=== PATIENT | male | born 1965 | race Caucasian/White ===

== ENCOUNTER 2016-08-09 23:49 | Inpatient (IN) | payer OTHER ==
[2016-08-10 00:22] VITALS: BMI 38.4
[2016-08-10] MEDS ORDERED: ONDANSETRON 4 MG/2 ML VIAL IVPB ONE (00:29)
[2016-08-10] MEDS ORDERED: ACETAMINOPHEN 500 MG TABLET (FP) PO ONE (00:29)
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
[2016-08-10] MEDS ORDERED: VANCOMYCIN 1,000 MG in DEXTROSE 5%-WATER - 250 ML IVPB STA (00:44)
[2016-08-10] MEDS ORDERED: PIPERACILLIN/TAZOB 3.375 GM 3.375 GM in DEXTROSE 5%-WATER - 50 ML IVPB ONE ×2 (00:46→08:00)
[2016-08-10 01:18] LABS: BASOPHIL 0.3 % (0-2.0); EOSINOPHIL 0.1 % (0-4.5); MCH 27.9 pg (25.7-33.7); MCHC 33.2 g/dl (32.0-35.9); MEAN CELL VOLUME 83.9 fl (80-96); MEAN PLT VOLUME 8.7 fl (7.5-11.1); NEUTROPHILS 92.7 % (42.8-82.8); PLATELET COUNT 140 K/MM3 (134-434); RDW 14.4 % (11.9-15.9)
[2016-08-10 01:30] LABS: INR 1.23 (0.82-1.09); PROTHROMBIN TIME (PATIENT) 13.6 SEC (9.98-11.88)
[2016-08-10 01:33] LABS: ACTIVATED PTT 32.6 SECONDS (26.9-34.4)
[2016-08-10 01:54] LABS: ALBUMIN 3.3 g/dl (3.4-5.0); ANION GAP 11 (8-16); CALCIUM 8.5 mg/dL (8.5-10.1); CO2 24 mmol/L (21-32); COCKROFT - GAULT 120.11; CREATININE 1.2 mg/dL (0.7-1.3); GLUCOSE,RANDOM 296 mg/dL (74-106); SGOT/AST 56 U/L (15-37); SGPT/ALT 65 U/L (12-78)
[2016-08-10 01:57] LABS: ALK PHOS 119 U/L (45-117); BILIRUBIN,TOTAL 0.6 mg/dL (0.2-1.0); TOT PROT 6.7 g/dl (6.4-8.2); TROPONIN I < 0.02 ng/ml (0.00-0.05)
[2016-08-10] MEDS ORDERED: oxyCODONE HCL 5 MG TABLET PO ONE (02:03)
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
[2016-08-10] MEDS ORDERED: ACETAMINOPHEN 325 MG TABLET (FP) ONE (02:21)
[2016-08-10] MEDS ORDERED: ONDANSETRON 4 MG/2 ML VIAL ONE ×2 (02:58→03:00)
[2016-08-10] MEDS ORDERED: VANCOMYCIN 1 GRAM (PRE-DOCKED) 250 ML IVPB ONE ×2 (02:58→08:45)
[2016-08-10] MEDS ORDERED: ONDANSETRON 4 MG/2 ML VIAL IVPUSH PRN (03:28)
[2016-08-10] MEDS: INSULIN SLIDING SCALE (NOVOLOG) 1 VIAL SQ SCH ×6 (03:49→23:04)
[2016-08-10] MEDS ORDERED: INSULIN (NOVOLOG) ASPART 100 UNITS/ML 10ML VIAL ONE ×2 (03:57→21:27)
[2016-08-10] MEDS ORDERED: PIPERACILLIN/TAZOB 3.375 GM 50 ML IVPB ONE (05:36)
[2016-08-10 07:43] LABS: ARTERIAL BLD GAS O2 SATURATION 96.9 % (90-98.9); ARTERIAL BLOOD GAS HCO3 26.1 meq/L (22-26); ARTERIAL BLOOD GAS PO2 92.6 mmHg (80-100)
[2016-08-10 07:44] LABS: ALLENS TEST POSITIVE; ART PUNCT SITE RIGHT RADIAL; LPM/O2% 21%; PT. ON O2? NO; TYPE OF O2 ROOM AIR
[2016-08-10 07:45] LABS: ARTERIAL BLOOD GAS pH 7.47 (7.35-7.45)
[2016-08-10 07:46] LABS: METHEMOGLOBIN 1.5 % (0.4-1.5)
[2016-08-10] MEDS: traMADol HCL 50 MG TABLET PO PRN ×2 (08:07→23:17)
[2016-08-10 08:14] LABS: CALCIUM 8.4 mg/dL (8.5-10.1); COCKROFT - GAULT 144.14; PHOSPHOROUS 2.6 mg/dL (2.5-4.9)
[2016-08-10] MEDS ORDERED: PIPERACILLIN/TAZOB 3.375 GM/50 ML PRE-DOCKED IVPB ONE (08:45)
[2016-08-10] MEDS: SODIUM CHLORIDE 1,000 ML IV SCH (08:57)
[2016-08-10] MEDS: ASPIRIN 81 MG CHEWABLE TABLETS PO SCH (09:03)
[2016-08-10] MEDS: cloNIDine HCL 0.1 MG TABLET PO SCH ×2 (09:03→22:33)
[2016-08-10] MEDS: HEPARIN NA (PORCINE) 5,000 UNITS/ML 1ML VIAL SQ SCH ×2 (09:05→22:33)
[2016-08-10] MEDS: amLODIPine BESYLATE 5 MG TABLET (FP) PO SCH (09:05)
[2016-08-10] MEDS: FUROSEMIDE 20 MG TABLET (FP) PO SCH (09:05)
[2016-08-10] MEDS: VALSARTAN 160 MG TABLET (UD) PO SCH (09:05)
[2016-08-10] MEDS: ALPRAZolam 2 MG TABLET PO SCH ×4 (09:09→22:34)
[2016-08-10] MEDS: ACETAMINOPHEN 325 MG TABLET (FP) PO PRN ×2 (09:24→20:47)
[2016-08-10 09:47] LABS: MCH 28.1 pg (25.7-33.7); MCHC 33.5 g/dl (32.0-35.9); MEAN CELL VOLUME 83.9 fl (80-96); MEAN PLT VOLUME 8.6 fl (7.5-11.1); PLATELET COUNT 148 K/MM3 (134-434); RDW 14.5 % (11.9-15.9); WHITE BLOOD COUNT 16.9 K/mm3 (4.0-10.0)
[2016-08-10 10:08] LABS: URINE APPEARANCE CLEAR; URINE BILIRUBIN NEGATIVE (NEGATIVE); URINE BLOOD NEGATIVE (NEGATIVE); URINE COLOR LTYELLOW; URINE GLUCOSE (UA) NEGATIVE (NEGATIVE); URINE KETONE NEGATIVE (NEGATIVE); URINE LEUK ESTERASE NEGATIVE (NEGATIVE); URINE NITRITE NEGATIVE (NEGATIVE); URINE PROTEIN NEGATIVE (NEGATIVE); URINE UROBILINOGEN 2.0 E.U/dl E.U./dl (0.2-1.0)
[2016-08-10] MEDS ORDERED: ONDANSETRON 4 MG/2 ML VIAL IVPB PRN (12:01)
--- NOTE | 2016-08-10 12:29 | PN ---
Progress Note (short form) - Note Progress Note: ID consult dictated imp/reccd Acute onset fever/rigors- acutes cellulitis of the left foot (marked with marker ) entrypoint most likely chronic ulcer surgery to see ulcer last wound culture 12/25 with MRSA, enterobacter, xanthamonas and proteus continue vanco/zosyn f/u cultures f/u vancomycin trough diabetes remote history of substance use Problem List - Problems (1) Cellulitis of left leg Code(s): L03.116 - CELLULITIS OF LEFT LOWER LIMB (2) Chronic foot ulcer Code(s): L97.509 - NON-PRESSURE CHRONIC ULCER OTH PRT UNSP FOOT W UNSP SEVERITY (3) Diabetes mellitus Code(s): E11.9 - TYPE 2 DIABETES MELLITUS WITHOUT COMPLICATIONS
[2016-08-10] MEDS ORDERED: METHADONE HCL 10 MG TABLET PO ONE (12:54)
--- NOTE | 2016-08-10 13:00 | CONSULT ---
Consult Detox [facility] Reason for Current Admission/Consult: Methadone maintenance - History History of Present Illness: 51 y/o man known to me because he was attending our [facility] many years ago.He transferred to [facility] where he receives methadone 70mg daily. - History Source History Provided By: Patient, Medical Record - Alcohol/Substance Use Hx Alcohol Use: No - Significant Medical Findings: Laboratory Last Values WBC 16.9 K/mm3 (4.0-10.0) H 08/10/16 09:20 RBC 4.46 M/mm3 (4.00-5.60) 08/10/16 09:20 Hgb 12.5 GM/dL (11.7-16.9) 08/10/16 09:20 Hct 37.5 % (35.4-49) 08/10/16 09:20 MCV 83.9 fl (80-96) 08/10/16 09:20 MCHC 33.5 g/dl (32.0-35.9) 08/10/16 09:20 RDW 14.5 % (11.9-15.9) 08/10/16 09:20 Plt Count 148 K/MM3 (134-434) 08/10/16 09:20 MPV 8.6 fl (7.5-11.1) 08/10/16 09:20 Neutrophils % 92.7 % (42.8-82.8) H 08/10/16 01:00 Lymphocytes % 2.6 % (8-40) L D 08/10/16 01:00 Monocytes % 4.3 % (3.8-10.2) 08/10/16 01:00 Eosinophils % 0.1 % (0-4.5) D 08/10/16 01:00 Basophils % 0.3 % (0-2.0) 08/10/16 01:00 ESR 43 mm/hr (0-20) H 08/10/16 09:20 INR 1.23 (0.82-1.09) H 08/10/16 01:00 PTT (Actin FS) 32.6 SECONDS (26.9-34.4) 08/10/16 01:00 Puncture Site Right radial 08/10/16 07:30 ABG pH 7.47 (7.35-7.45) H 08/10/16 07:30 ABG pCO2 at Pt Temp 36.4 mmHg (35-45) 08/10/16 07:30 ABG pO2 at Pt Temp 92.6 mmHg (80-100) 08/10/16 07:30 ABG HCO3 26.1 meq/L (22-26) H 08/10/16 07:30 ABG O2 Sat (Measured) 96.9 % (90-98.9) 08/10/16 07:30 ABG O2 Content 16.6 % vol (15-22) 08/10/16 07:30 ABG Base Excess 3.0 meq/l (-2-2) H 08/10/16 07:30 Osei Test Positive 08/10/16 07:30 Carboxyhemoglobin 1.2 gm% (0.5-2.0) 08/10/16 07:30 Methemoglobin 1.5 % (0.4-1.5) 08/10/16 07:30 O2 Delivery Device Room air 08/10/16 07:30 Oxygen Flow Rate 21% 08/10/16 07:30 PEEP 0.0 cmH2O 08/10/16 07:30 Sodium 138 mmol/L (136-145) 08/10/16 06:45 Potassium 4.1 mmol/L (3.5-5.1) 08/10/16 06:45 Chloride 104 mmol/L (98-107) 08/10/16 06:45 Carbon Dioxide 26 mmol/L (21-32) 08/10/16 06:45 Anion Gap 8 (8-16) 08/10/16 06:45 BUN 16 mg/dL (7-18) 08/10/16 06:45 Creatinine 1.0 mg/dL (0.7-1.3) 08/10/16 06:45 Creat Clearance w eGFR > 60 (>60) 08/10/16 01:00 POC Glucometer 146 UNITS (()) 08/10/16 11:19 Random Glucose 132 mg/dL (74-106) H D 08/10/16 06:45 Hemoglobin A1c % 8.5 % (4.8-6.0) H 08/10/16 09:20 Lactic Acid 1.707 mmol/L (0.4-2.0) 08/10/16 09:20 Calcium 8.4 mg/dL (8.5-10.1) L 08/10/16 06:45 Phosphorus 2.6 mg/dL (2.5-4.9) 08/10/16 06:45 Magnesium 2.0 mg/dL (1.8-2.4) 08/10/16 06:45 Total Bilirubin 0.6 mg/dL (0.2-1.0) 08/10/16 01:00 AST 56 U/L (15-37) H 08/10/16 01:00 ALT 65 U/L (12-78) 08/10/16 01:00 Alkaline Phosphatase 119 U/L (45-117) H 08/10/16 01:00 Creatine Kinase 157 IU/L (39-308) D 08/10/16 01:00 Creatine Kinase Index 0.7 % (0.0-5.0) 08/10/16 01:00 CK-MB (CK-2) 1.037 ng/ml (0.5-3.6) 08/10/16 01:00 CK-MB (CK-2) Rel Index Cancelled 08/10/16 01:00 Troponin I < 0.02 ng/ml (0.00-0.05) 08/10/16 01:00 C-Reactive Protein 8.3 MG/DL (0.00-0.3) H 08/10/16 09:20 Total Protein 6.7 g/dl (6.4-8.2) 08/10/16 01:00 Albumin 3.3 g/dl (3.4-5.0) L 08/10/16 01:00 Urine Color Ltyellow 08/10/16 08:30 Urine Appearance Clear 08/10/16 08:30 Urine pH 8.0 (5.0-8.0) D 08/10/16 08:30 Urine Protein Negative (NEGATIVE) 08/10/16 08:30 Urine Glucose (UA) Negative (NEGATIVE) 08/10/16 08:30 Urine Ketones Negative (NEGATIVE) 08/10/16 08:30 Urine Blood Negative (NEGATIVE) 08/10/16 08:30 Urine Nitrite Negative (NEGATIVE) 08/10/16 08:30 Urine Bilirubin Negative (NEGATIVE) 08/10/16 08:30 Urine Urobilinogen 2.0 e.u/dl E.U./dl (0.2-1.0) 08/10/16 08:30 Ur Leukocyte Esterase Negative (NEGATIVE) 08/10/16 08:30 Blood Type A POSITIVE 08/10/16 01:00 Antibody Screen Negative 08/10/16 01:00 labs noted Assessment Plan - Diagnosis (1) Opioid dependence on agonist therapy Status: Acute - Medication Detox Regimen/Protocol: Methadone (70mg daily)
--- NOTE | 2016-08-10 13:28 | PN ---
Teaching Attending Note Name of Resident: Mars Terry ATTENDING PHYSICIAN STATEMENT I saw and evaluated the patient. I reviewed the resident's note and discussed the case with the resident. I agree with the resident's findings and plan as documented. SUBJECTIVE:c/o nausea and vomiting with excruciating leg pain which he states started yesterday. assoc with chills. denies CP, SOB. states last used IVDA last 20 years ago. has been following up with Dr Bellamy for his foot ulcer. OBJECTIVE: Last Vital Signs Temp Pulse Resp BP Pulse Ox 100.5 F H 88 20 145/68 98 08/10/16 06:29 08/10/16 06:29 08/10/16 06:29 08/10/16 06:29 08/10/16 04:17 General +rigors CV S1 S2 RRR no murmur/rub/gallop Lungs CTA B/L no wheezing/rales/rhonchi Extremities LLE 3cm round ulcer on heel of foot. does not probe to bone, no undermining or tunneling. no drainage erythema spreading up the knee +warmth and tenderness. chronic venous changes also noted ASSESSMENT AND PLAN: 51yo M with complicated medical history presented to the ER and was admitted for further evaluation of their emergent condition 1. LLE cellulitis- likely from diabetic foot ulcer. Tm 103.1. ESR/CRP elevated. will check XR of the foot to evaluate for OM, pt is clinically to sick to lay still for MRI imaging. give vanco x1 while waiting for ID as +MRSA in the past. cont IVF, zosyn. ID and vascular consulted. will consult podiatry. pain and nausea control. f/u Cx 2. Chronic methadone dependence- on methadone 70mg. detox consulted. continue 3. Abdominal pain- likely due to vomiting. u/s showing fatty liver. will monitor for now. LFT WNL 4. DVT ppx- hep sq
--- NOTE | 2016-08-10 13:30 | EKG ---
Test Reason : Blood Pressure : / mmHG Vent. Rate : 095 BPM Atrial Rate : 095 BPM P-R Int : 174 ms QRS Dur : 086 ms QT Int : 348 ms P-R-T Axes : 021 043 023 degrees QTc Int : 437 ms NORMAL SINUS RHYTHM NORMAL ECG WHEN COMPARED WITH ECG OF 25-FEB-2016 14:36, NO SIGNIFICANT CHANGE WAS FOUND Confirmed by FERNANDO VAZQUEZ MD ([id number]) on 08/10/2016 1:30:35 PM Referred By: Confirmed By:FERNANDO VAZQUEZ MD
[2016-08-10] MEDS ORDERED: METHADONE 40 MG, METHADONE 30 MG PO ONE (14:30)
[2016-08-10] MEDS ORDERED: METHADONE HCL 40 MG DISPERSABLE TABLET ONE (15:35)
[2016-08-10] MEDS ORDERED: METHADONE HCL 10 MG TABLET ONE (15:35)
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
--- NOTE | 2016-08-10 16:05 | PN ---
Physical Exam: SUBJECTIVE: Patient seen and examined at bedside. Patient stated that he feels terrible and he has fever, chills, RUQ pain, n/v since admission. OBJECTIVE: Vital Signs Period Temp Pulse Resp BP Sys/Cross Pulse Ox Last 24 Hr 99 F-100.7 F 67-88 20-22 113-145/52-68 98 GENERAL: AAO x 3, in pain and sleeping in position EYES: L eye removed. R eye PERRLA EARS, NOSE, THROAT: Moist mucous membranes. LUNGS: CTAB HEART: RRR, S1 S2 present, no murmur ABDOMEN: + bowel sounds, tenderness in RUQ and RLQ, voluntary guarding LOWER EXTREMITIES: RLE s/p BKA. LLE erythematous, edematous, warm, skin sloughing and scaling, 5th metatarsal amputated, L plantar foot ulcer non draining, non-purulent, round shape measuring 3 cm in radius, stage 3, tunneling , no crepitus. NEUROLOGICAL: Cranial nerves II-XII grossly intact SKIN: Warm, dry CBCD WBC 16.9 K/mm3 (4.0-10.0) H 08/10/16 09:20 RBC 4.46 M/mm3 (4.00-5.60) 08/10/16 09:20 Hgb 12.5 GM/dL (11.7-16.9) 08/10/16 09:20 Hct 37.5 % (35.4-49) 08/10/16 09:20 MCV 83.9 fl (80-96) 08/10/16 09:20 MCHC 33.5 g/dl (32.0-35.9) 08/10/16 09:20 RDW 14.5 % (11.9-15.9) 08/10/16 09:20 Plt Count 148 K/MM3 (134-434) 08/10/16 09:20 MPV 8.6 fl (7.5-11.1) 08/10/16 09:20 CMP Sodium 138 mmol/L (136-145) 08/10/16 06:45 Potassium 4.1 mmol/L (3.5-5.1) 08/10/16 06:45 Chloride 104 mmol/L (98-107) 08/10/16 06:45 Carbon Dioxide 26 mmol/L (21-32) 08/10/16 06:45 Anion Gap 8 (8-16) 08/10/16 06:45 BUN 16 mg/dL (7-18) 08/10/16 06:45 Creatinine 1.0 mg/dL (0.7-1.3) 08/10/16 06:45 Creat Clearance w eGFR > 60 (>60) 08/10/16 01:00 Calcium 8.4 mg/dL (8.5-10.1) L 08/10/16 06:45 Total Bilirubin 0.6 mg/dL (0.2-1.0) 08/10/16 01:00 AST 56 U/L (15-37) H 08/10/16 01:00 ALT 65 U/L (12-78) 08/10/16 01:00 Alkaline Phosphatase 119 U/L (45-117) H 08/10/16 01:00 Total Protein 6.7 g/dl (6.4-8.2) 08/10/16 01:00 Albumin 3.3 g/dl (3.4-5.0) L 08/10/16 01:00 Active Medications Generic Name Dose Route Start Last Admin Trade Name Freq PRN Reason Stop Dose Admin Acetaminophen 650 mg 08/10/16 03:03 08/10/16 09:24 Tylenol - PO 650 mg Q4H PRN Administration FEVER OR PAIN Alprazolam 2 mg 08/10/16 10:00 08/10/16 09:09 Xanax - PO 2 mg QID PRICE Administration Amlodipine Besylate 5 mg 08/10/16 10:00 08/10/16 09:05 Norvasc - PO 5 mg DAILY PRICE Administration Aspirin 81 mg 08/10/16 10:00 08/10/16 09:03 Asa - PO 81 mg DAILY PRICE Administration Atorvastatin Calcium 20 mg 08/10/16 22:00 Lipitor - PO HS PRICE Clonidine 0.2 mg 08/10/16 10:00 08/10/16 09:03 Catapres - PO 0.2 mg BID PRICE Administration Collagenase 1 applic 08/10/16 10:00 Santyl - TP DAILY PRICE Furosemide 20 mg 08/10/16 10:00 08/10/16 09:05 Lasix - PO 20 mg DAILY PRICE Administration Heparin Sodium (Porcine) 5,000 unit 08/10/16 10:00 08/10/16 09:05 Heparin - SQ 5,000 unit BID PRICE Administration Sodium Chloride 1,000 mls @ 75 mls/hr 08/10/16 03:15 08/10/16 08:57 Normal Saline - IV 75 mls/hr ASDIR PRICE Administration Vancomycin HCl 1,250 mg/ 250 mls @ 250 mls/hr 08/10/16 22:00 Dextrose IVPB BID PRICE Protocol Insulin Aspart 1 vial 08/10/16 02:15 08/10/16 11:21 Novolog Vial Sliding Scale - SQ Not Given Q4H PRICE Protocol Methadone HCl 70 mg 08/11/16 06:00 Dolophine - PO DAILY@0600 PRICE Non-Formulary Medication 15 gm 08/10/16 10:00 Becaplermin [Regranex] TP DAILY [facility] Non-Formulary Medication 1 each 08/10/16 03:15 Calcium Carb/Vitamin D3/Vit K1 [Calcium + D Soft Chewable Tab] PO ASDIR PRICE Ondansetron HCl 4 mg 08/10/16 12:01 Zofran Injection IVPB Q4H PRN NAUSEA Piperacillin Sod/Tazobactam Sod 3.375 gm 08/10/16 18:00 Zosyn 3.375gm Ivpb (Pre-Docked) IVPB Q8H-IV [facility] Protocol Tramadol HCl 50 mg 08/10/16 03:15 08/10/16 08:07 Ultram - PO 50 mg Q4H PRN Administration Valsartan 160 mg 08/10/16 10:00 08/10/16 09:05 Diovan - PO 160 mg DAILY PRICE Administration Imaging U/S abd on 08/10: Hepatomegaly with diffuse fatty infiltration of the liver X-ray of LLE on 08/10: Soft tissue air/ulceration in the plantar soft tissues of the hindfoot is again noted. Deformities of the calcaneus and talus are unchanged in appearance. Partial amputation of the fifth ray is again noted. There is a linear metallic density measuring about 3 mm in size over the lateral forefoot seen on the oblique view of the foot raising possibility of foreign body, however more likely reflecting artifact as it is only seen on one view. No definite radiographic evidence of osteomyelitis is seen CXR on 08/10: No acute pathology. No significant change ASSESSMENT/PLAN: 51 yo M admitted to the med-surg with sepsis 2/2 cellulitis. ID: non-purulent cellulitis of LLE - Frebile with elevated WBC - h/o LLE osteomyelitis - CXR negative but cannot r/o osteomyelitis and DVT * f/u duplex U/S of LLE * MRI when stable - Cont. vanco + zosyn GI: RUQ and RLQ pain - Diabetic gastroparesis vs. liver pathology due to untreated hep C - Abd U/S shows fatty infiltration - Observe for now Psy: substance abuse on methadone; PTSD and anxiety - Dosed confirmed with [facility] - Cont. methadone 70mg daily - Cont. alprazonam 2mg QID Cardiac: HLD - Cont. lipitor 20mg HS - Cont. ASA 81mg daily Renal: HTN - Cont. norvasc 5mg, clonidine 0.2mg BID, lasix 20mg daily, diovan 160mg daily Endocrine: IDDM - Sliding scale - BGM FEN - NS 75ml/hr - Cont. to monitor lytes and Cr - Diabetic diet with low Na+ Prophylaxis - DVT: heparin SQ - GI: not indicated Disposition - Cont. to monitor on med-surg Code status - Full code Visit type - Emergency Visit Emergency Visit: Yes ED Registration Date: 08/10/16 Care time: The patient presented to the Emergency Department on the above date and was hospitalized for further evaluation of their emergent condition. - New Patient This patient is new to me today: Yes Date on this admission: 08/10/16 - Critical Care Critical Care patient: No
[2016-08-10] MEDS: COLLAGENASE CLOSTRIDIUM HIST. 30 GRAMS TUBE TP SCH (16:06)
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
[2016-08-10] MEDS: PIPERACILLIN/TAZOB 3.375 GM/50 ML PRE-DOCKED IVPB SCH (17:59)
[2016-08-10] MEDS: ATORVASTATIN CA 20 MG TABLET (FP) PO SCH (22:32)
[2016-08-10] MEDS: VANCOMYCIN 1,250 MG in DEXTROSE 5%-WATER - 250 ML IVPB SCH (22:34)
[2016-08-11] MEDS: INSULIN SLIDING SCALE (NOVOLOG) 1 VIAL SQ SCH ×7 (02:03→22:10)
[2016-08-11] MEDS ORDERED: PIPERACILLIN/TAZOB 3.375 GM 50 ML IVPB ONE (05:45)
[2016-08-11] MEDS ORDERED: METHADONE 40 MG, METHADONE 30 MG PO SCH (06:00)
[2016-08-11] MEDS ORDERED: METHADONE HCL 10 MG TABLET PO SCH (06:00)
[2016-08-11] MEDS: PIPERACILLIN/TAZOB 3.375 GM/50 ML PRE-DOCKED IVPB SCH ×3 (06:07→17:54)
[2016-08-11] MEDS: SODIUM CHLORIDE 1,000 ML IV SCH ×2 (06:53→09:44)
[2016-08-11 07:18] LABS: MCH 28.3 pg (25.7-33.7); MCHC 33.3 g/dl (32.0-35.9); MEAN CELL VOLUME 84.9 fl (80-96); MEAN PLT VOLUME 9.1 fl (7.5-11.1); PLATELET COUNT 144 K/MM3 (134-434); RDW 15.2 % (11.9-15.9); WHITE BLOOD COUNT 11.2 K/mm3 (4.0-10.0)
[2016-08-11] MEDS ORDERED: METHADONE HCL 40 MG DISPERSABLE TABLET ONE (09:38)
[2016-08-11] MEDS ORDERED: METHADONE HCL 10 MG TABLET ONE (09:39)
[2016-08-11] MEDS: VANCOMYCIN 1,250 MG in DEXTROSE 5%-WATER - 250 ML IVPB SCH ×2 (09:45→22:41)
[2016-08-11] MEDS: METHADONE 40 MG, METHADONE 30 MG PO SCH (09:46)
[2016-08-11] MEDS: cloNIDine HCL 0.1 MG TABLET PO SCH ×2 (09:46→22:09)
[2016-08-11] MEDS: ASPIRIN 81 MG CHEWABLE TABLETS PO SCH (09:46)
[2016-08-11] MEDS: FUROSEMIDE 20 MG TABLET (FP) PO SCH (09:46)
[2016-08-11] MEDS: HEPARIN NA (PORCINE) 5,000 UNITS/ML 1ML VIAL SQ SCH ×2 (09:47→22:09)
[2016-08-11] MEDS: ALPRAZolam 2 MG TABLET PO SCH ×4 (09:47→22:10)
[2016-08-11] MEDS: amLODIPine BESYLATE 5 MG TABLET (FP) PO SCH (09:47)
[2016-08-11] MEDS: VALSARTAN 160 MG TABLET (UD) PO SCH (09:47)
[2016-08-11] MEDS: COLLAGENASE CLOSTRIDIUM HIST. 30 GRAMS TUBE TP SCH (09:50)
[2016-08-11] MEDS ORDERED: INSULIN (NOVOLOG) ASPART 100 UNITS/ML 10ML VIAL ONE ×3 (10:11→21:47)
--- NOTE | 2016-08-11 10:11 | PN ---
Teaching Attending Note Name of Resident: Mars Terry ATTENDING PHYSICIAN STATEMENT I saw and evaluated the patient. I reviewed the resident's note and discussed the case with the resident. I agree with the resident's findings and plan as documented. SUBJECTIVE: Patient complains of abdominal pain with nausea and vomiting. OBJECTIVE: Vital Signs Period Temp Pulse Resp BP Sys/Cross Pulse Ox Last 24 Hr 99 F-102.4 F 67-113 18-20 107-122/52-65 98 HEART: S1S2, RRR LUNGS: Clear ABDOMEN: Obese, non-tender, non-distended, normal BS EXTREMITIES: No edema, decreased erythema of LLE, s/p right BKA ASSESSMENT AND PLAN: This is a 51-year-old man with a history of IDDM, HTN, hyperlipidemia, hepatitis C, PTSD, anxiety disorder, chronic pain, substance abuse, neuropathy, endocarditis, MRSA bacteremia, right BKA, left 5th toe amputation, osteomyelitis of LLE and rib, who presented to the ER with abdominal pain, nausea, vomiting, diarrhea, fever and chills. 1. Sepsis secondary to LLE cellulitis from diabetic foot ulcer - Continue Zosyn, Vancomycin - Continue wound care - Blood cultures negative after 24 hrs - Wound culture pending 2. Opiate dependence - Continue Methadone maintenance 3. Abdominal pain with nausea and vomiting - Possible diabetic gastroparesis 4. HTN - Continue Norvasc, Diovan, Clonidine, Lasix 5. IDDM with neuropathy - Continue Novolog sliding scale 6. Chronic pain 7. PTSD and anxiety disorder - Continue Xanax 8. Hyperlipidemia - Continue Lipitor
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
--- NOTE | 2016-08-11 11:00 | PN ---
Physical Exam: SUBJECTIVE: Patient seen and examined at bedside. Patient stated that he still has fever, chills, RUQ pain, leg pain, headache and delirium overnight. OBJECTIVE: Vital Signs Period Temp Pulse Resp BP Sys/Cross Pulse Ox Last 24 Hr 99 F-102.4 F 67-113 18-20 107-122/52-65 98 GENERAL: AAO x 3, sleeping in position, cooperative, able to speak in full sentences EYES: L eye removed. R eye PERRLA EARS, NOSE, THROAT: Moist mucous membranes. LUNGS: CTAB HEART: RRR, S1 S2 present, no murmur ABDOMEN: + bowel sounds, tenderness in all quadrants, no guarding LOWER EXTREMITIES: RLE s/p BKA. LLE less erythematous (redness retreated ~2 cm from drawn margin yesterday), and less warm, skin sloughing and scaling, 5th metatarsal amputated, L plantar foot ulcer dressing in place NEUROLOGICAL: Cranial nerves II-XII grossly intact SKIN: Warm, dry CBCD WBC 11.2 K/mm3 (4.0-10.0) H D 08/11/16 06:30 RBC 4.08 M/mm3 (4.00-5.60) 08/11/16 06:30 Hgb 11.5 GM/dL (11.7-16.9) L 08/11/16 06:30 Hct 34.7 % (35.4-49) L 08/11/16 06:30 MCV 84.9 fl (80-96) 08/11/16 06:30 MCHC 33.3 g/dl (32.0-35.9) 08/11/16 06:30 RDW 15.2 % (11.9-15.9) 08/11/16 06:30 Plt Count 144 K/MM3 (134-434) 08/11/16 06:30 MPV 9.1 fl (7.5-11.1) 08/11/16 06:30 Active Medications Generic Name Dose Route Start Last Admin Trade Name Freq PRN Reason Stop Dose Admin Acetaminophen 650 mg 08/10/16 03:03 08/10/16 20:47 Tylenol - PO 650 mg Q4H PRN Administration FEVER OR PAIN Alprazolam 2 mg 08/10/16 10:00 08/11/16 09:47 Xanax - PO 2 mg QID PRICE Administration Amlodipine Besylate 5 mg 08/10/16 10:00 08/11/16 09:47 Norvasc - PO 5 mg DAILY PRICE Administration Aspirin 81 mg 08/10/16 10:00 08/11/16 09:46 Asa - PO 81 mg DAILY PRICE Administration Atorvastatin Calcium 20 mg 08/10/16 22:00 08/10/16 22:32 Lipitor - PO 20 mg HS PRICE Administration Clonidine 0.2 mg 08/10/16 10:00 08/11/16 09:46 Catapres - PO 0.2 mg BID PRICE Administration Collagenase 1 applic 08/10/16 10:00 08/11/16 09:50 Santyl - TP 1 applic DAILY PRICE Administration Furosemide 20 mg 08/10/16 10:00 08/11/16 09:46 Lasix - PO 20 mg DAILY PRICE Administration Heparin Sodium (Porcine) 5,000 unit 08/10/16 10:00 08/11/16 09:47 Heparin - SQ 5,000 unit BID PRICE Administration Sodium Chloride 1,000 mls @ 75 mls/hr 08/10/16 03:15 08/11/16 09:44 Normal Saline - IV 75 mls/hr ASDIR PRICE Administration Vancomycin HCl 1,250 mg/ 250 mls @ 250 mls/hr 08/10/16 22:00 08/11/16 09:45 Dextrose IVPB 250 mls/hr BID PRICE Administration Protocol Insulin Aspart 1 vial 08/10/16 02:15 08/11/16 06:54 Novolog Vial Sliding Scale - SQ 6 units Q4H PRICE Administration Protocol Methadone HCl 40 mg/ Methadone 70 mg 08/11/16 07:45 08/11/16 09:46 HCl 30 mg PO 08/12/16 07:44 70 mg DAILY@0600 PRICE Administration Non-Formulary Medication 15 gm 08/10/16 10:00 Becaplermin [Regranex] TP DAILY PRICE Non-Formulary Medication 1 each 08/10/16 03:15 Calcium Carb/Vitamin D3/Vit K1 [Calcium + D Soft Chewable Tab] PO ASDIR PRICE Ondansetron HCl 4 mg 08/10/16 12:01 08/10/16 20:51 Zofran Injection IVPB 4 mg Q4H PRN Administration NAUSEA Piperacillin Sod/Tazobactam Sod 3.375 gm 08/10/16 18:00 08/11/16 09:45 Zosyn 3.375gm Ivpb (Pre-Docked) IVPB 3.375 gm Q8H-IV PRICE Administration Protocol Tramadol HCl 50 mg 08/10/16 03:15 08/10/16 23:17 Ultram - PO 50 mg Q4H PRN Administration Valsartan 160 mg 08/10/16 10:00 08/11/16 09:47 Diovan - PO 160 mg DAILY PRICE Administration Imaging U/S abd on 08/10: Hepatomegaly with diffuse fatty infiltration of the liver X-ray of LLE on 08/10: Soft tissue air/ulceration in the plantar soft tissues of the hindfoot is again noted. Deformities of the calcaneus and talus are unchanged in appearance. Partial amputation of the fifth ray is again noted. There is a linear metallic density measuring about 3 mm in size over the lateral forefoot seen on the oblique view of the foot raising possibility of foreign body, however more likely reflecting artifact as it is only seen on one view. No definite radiographic evidence of osteomyelitis is seen CXR on 08/10: No acute pathology. No significant change ASSESSMENT/PLAN: 51 yo M admitted to the med-surg with sepsis 2/2 cellulitis. 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 vanco + zosyn day 2 * vanco trough before 4th dose GI: RUQ and RLQ pain - Diabetic gastroparesis vs. liver pathology due to untreated hep C - Abd U/S shows fatty infiltration - Start trial of reglan TID Psy: substance abuse on methadone; PTSD and anxiety - Dosed confirmed with [facility] - Cont. methadone 70mg daily - Cont. alprazonam 2mg QID Cardiac: HLD - Cont. lipitor 20mg HS - Cont. ASA 81mg daily Renal: HTN - Cont. norvasc 5mg, clonidine 0.2mg BID, lasix 20mg daily, diovan 160mg daily Endocrine: IDDM - Sliding scale - BGM FEN - NS 75ml/hr - Cont. to monitor lytes and Cr - Diabetic diet with low Na+ Prophylaxis - DVT: heparin SQ - GI: not indicated Disposition - Cont. to monitor on med-surg Code status - Full code Visit type - Emergency Visit Emergency Visit: No - New Patient This patient is new to me today: No - Critical Care Critical Care patient: No
[2016-08-11] MEDS: METOCLOPRAMIDE HCL 10 MG TABLET (FP) PO SCH ×2 (11:55→16:49)
[2016-08-11] MEDS: traMADol HCL 50 MG TABLET PO PRN (12:00)
--- NOTE | 2016-08-11 16:52 | PN ---
Progress Note (short form) - Note Progress Note: feels a bit better Vital Signs Period Temp Pulse Resp BP Sys/Cross Pulse Ox Last 24 Hr 99.4 F-102.4 F 61-113 16-18 85-122/50-65 98-98 cor-rrr lungs decreased bs at bases abd soft,nt ext erythema unchanged- within lines drawn yesterday CBC, BMP 08/11/16 06:30 08/10/16 06:45 Microbiology 08/10/16 03:10 Foot - Left Sole Gram Stain - Final 08/10/16 03:10 Foot - Left Sole Wound Culture - Preliminary Non Lactose Fermenting Gnb Presumptive Mrsa (Pbp2a Pos) Streptococcus Pyogenes Grp A Staphylococcus Coagulase Neg 08/10/16 08:41 Urine - Urine Clean Catch Urine Culture - Final NO GROWTH OBTAINED 08/10/16 01:00 Blood - Peripheral Venous Blood Culture - Preliminary NO GROWTH OBTAINED AFTER 24 HOURS, INCUBATION TO CONTINUE FOR 4 DAYS. 08/10/16 01:00 Blood - Peripheral Venous Blood Culture - Preliminary NO GROWTH OBTAINED AFTER 24 HOURS, INCUBATION TO CONTINUE FOR 4 DAYS. 08/10/16 01:00 Nasopharyngeal Swab Respiratory Virus Panel - Preliminary 08/10/16 01:00 Nasopharyngeal Swab Influenza Types A,B Antigen (NORA) - Final 08/10/16 01:00 Nasopharyngeal Swab - Final a/p cellulitis- continue vanco/zosyn diabetes remote history of substance use Problem List - Problems (1) Cellulitis of left leg Code(s): L03.116 - CELLULITIS OF LEFT LOWER LIMB (2) Chronic foot ulcer Code(s): L97.509 - NON-PRESSURE CHRONIC ULCER OTH PRT UNSP FOOT W UNSP SEVERITY (3) Diabetes mellitus Code(s): E11.9 - TYPE 2 DIABETES MELLITUS WITHOUT COMPLICATIONS
[2016-08-11] MEDS: ATORVASTATIN CA 20 MG TABLET (FP) PO SCH (22:10)
[2016-08-12] MEDS: PIPERACILLIN/TAZOB 3.375 GM/50 ML PRE-DOCKED IVPB SCH ×3 (01:35→17:53)
[2016-08-12] MEDS ORDERED: METHADONE HCL 40 MG DISPERSABLE TABLET ONE (06:06)
[2016-08-12] MEDS ORDERED: METHADONE HCL 10 MG TABLET ONE (06:07)
[2016-08-12] MEDS: SODIUM CHLORIDE 1,000 ML IV SCH ×3 (06:09→21:51)
[2016-08-12] MEDS: METHADONE 40 MG, METHADONE 30 MG PO SCH (06:12)
[2016-08-12] MEDS: METOCLOPRAMIDE HCL 10 MG TABLET (FP) PO SCH ×3 (06:13→16:43)
[2016-08-12] MEDS: INSULIN SLIDING SCALE (NOVOLOG) 1 VIAL SQ SCH ×4 (06:13→21:40)
[2016-08-12 07:30] LABS: MCH 28.3 pg (25.7-33.7); MCHC 33.8 g/dl (32.0-35.9); MEAN CELL VOLUME 83.8 fl (80-96); MEAN PLT VOLUME 9.8 fl (7.5-11.1); PLATELET COUNT 145 K/MM3 (134-434); RDW 14.5 % (11.9-15.9); WHITE BLOOD COUNT 7.2 K/mm3 (4.0-10.0)
[2016-08-12] MEDS: amLODIPine BESYLATE 5 MG TABLET (FP) PO SCH ×2 (09:04→09:19)
[2016-08-12] MEDS: ASPIRIN 81 MG CHEWABLE TABLETS PO SCH (09:04)
[2016-08-12] MEDS: VALSARTAN 160 MG TABLET (UD) PO SCH ×2 (09:04→09:19)
[2016-08-12] MEDS: ALPRAZolam 2 MG TABLET PO SCH ×4 (09:04→21:40)
[2016-08-12] MEDS: FUROSEMIDE 20 MG TABLET (FP) PO SCH (09:05)
[2016-08-12] MEDS: cloNIDine HCL 0.1 MG TABLET PO SCH ×2 (09:05→21:39)
[2016-08-12] MEDS: HEPARIN NA (PORCINE) 5,000 UNITS/ML 1ML VIAL SQ SCH ×2 (09:05→21:39)
[2016-08-12] MEDS: COLLAGENASE CLOSTRIDIUM HIST. 30 GRAMS TUBE TP SCH (09:05)
[2016-08-12] MEDS: ACETAMINOPHEN 325 MG TABLET (FP) PO PRN (09:06)
[2016-08-12] MEDS: VANCOMYCIN 1,250 MG in DEXTROSE 5%-WATER - 250 ML IVPB SCH ×2 (10:20→21:40)
[2016-08-12] MEDS: PATIENT'S OWN MEDICATION (NON-FORMULARY) (Calcium Carb/Vitamin D3/Vit K1 [Calcium + D Soft PO SCH ×2 (10:32→10:33)
[2016-08-12] MEDS: PATIENT'S OWN MEDICATION (NON-FORMULARY) (Becaplermin [Regranex] 15 GM) TP SCH (10:33)
[2016-08-12] MEDS ORDERED: INSULIN (NOVOLOG) ASPART 100 UNITS/ML 10ML VIAL ONE ×4 (11:45→21:30)
[2016-08-12] MEDS: CALCIUM 500MG/VIT-D 200 UNITS COMBO TABLET (FP) PO SCH (11:55)
[2016-08-12] MEDS ORDERED: INSULIN (NOVOLOG) ASPART 100 UNITS/ML 10ML VIAL SQ ONE ×2 (12:45→18:56)
--- NOTE | 2016-08-12 14:51 | PN ---
Progress Note (short form) - Note Progress Note: feels a bit better fevers resolving Vital Signs Period Temp Pulse Resp BP Sys/Cross Pulse Ox Last 24 Hr 98.1 F-99.5 F 56-68 18-20 96-119/38-54 98-98 cor-rrr lungs clear abd soft,nt ext erythema unchanged, +warmth plantar ulcer CBC, BMP 08/12/16 06:15 08/10/16 06:45 Laboratory Tests 08/10/16 08/12/16 09:20 06:15 ESR 43 H C-Reactive Protein 13.7 H D MRI c/w calcaneal osteomyelitis Microbiology 08/10/16 03:10 Foot - Left Sole Gram Stain - Final 08/10/16 03:10 Foot - Left Sole Wound Culture - Preliminary Non Lactose Fermenting Gnb Mr S Aureus Beta Hemolytic Streptococcus A Staphylococcus Coagulase Neg 08/10/16 01:00 Blood - Peripheral Venous Blood Culture - Preliminary NO GROWTH OBTAINED AFTER 48 HOURS, INCUBATION TO CONTINUE FOR 3 DAYS. 08/10/16 01:00 Blood - Peripheral Venous Blood Culture - Preliminary NO GROWTH OBTAINED AFTER 48 HOURS, INCUBATION TO CONTINUE FOR 3 DAYS. 08/10/16 08:41 Urine - Urine Clean Catch Urine Culture - Final NO GROWTH OBTAINED 08/10/16 01:00 Nasopharyngeal Swab Respiratory Virus Panel - Preliminary 08/10/16 01:00 Nasopharyngeal Swab Influenza Types A,B Antigen (NORA) - Final 08/10/16 01:00 Nasopharyngeal Swab - Final a/p calcaneal osteomyelitis cellulitis- diabetes remote history of substance use f/u cultures f/u with podiatry continue vancomycin and zosyn Problem List - Problems (1) Cellulitis of left leg Code(s): L03.116 - CELLULITIS OF LEFT LOWER LIMB (2) Chronic foot ulcer Code(s): L97.509 - NON-PRESSURE CHRONIC ULCER OTH PRT UNSP FOOT W UNSP SEVERITY (3) Diabetes mellitus Code(s): E11.9 - TYPE 2 DIABETES MELLITUS WITHOUT COMPLICATIONS
--- NOTE | 2016-08-12 16:36 | PN ---
Physical Exam: SUBJECTIVE: Patient seen and examined at bedside. Patient stated that he still has fever, chills, RUQ pain, leg pain, headache, unable to sleep. OBJECTIVE: Vital Signs Period Temp Pulse Resp BP Sys/Cross Pulse Ox Last 24 Hr 97.9 F-99.5 F 51-68 18-20 96-139/38-60 98-98 GENERAL: AAO x 3, sleeping in position, cooperative, able to speak in full sentences EYES: L eye removed. R eye PERRLA EARS, NOSE, THROAT: Moist mucous membranes. LUNGS: CTAB HEART: RRR, S1 S2 present, no murmur ABDOMEN: + bowel sounds, tenderness in all quadrants, no guarding LOWER EXTREMITIES: RLE s/p BKA. LLE still erythematous (redness retreated ~4 cm from drawn margin yesterday), and still warm, skin sloughing and scaling, 5th metatarsal amputated, L plantar foot ulcer dressing in place NEUROLOGICAL: Cranial nerves II-XII grossly intact SKIN: Warm, dry CBCD WBC 7.2 K/mm3 (4.0-10.0) D 08/12/16 06:15 RBC 4.07 M/mm3 (4.00-5.60) 08/12/16 06:15 Hgb 11.5 GM/dL (11.7-16.9) L 08/12/16 06:15 Hct 34.1 % (35.4-49) L 08/12/16 06:15 MCV 83.8 fl (80-96) 08/12/16 06:15 MCHC 33.8 g/dl (32.0-35.9) 08/12/16 06:15 RDW 14.5 % (11.9-15.9) 08/12/16 06:15 Plt Count 145 K/MM3 (134-434) 08/12/16 06:15 MPV 9.8 fl (7.5-11.1) 08/12/16 06:15 CMP Sodium 138 mmol/L (136-145) 08/10/16 06:45 Potassium 4.1 mmol/L (3.5-5.1) 08/10/16 06:45 Chloride 104 mmol/L (98-107) 08/10/16 06:45 Carbon Dioxide 26 mmol/L (21-32) 08/10/16 06:45 Anion Gap 8 (8-16) 08/10/16 06:45 BUN 16 mg/dL (7-18) 08/10/16 06:45 Creatinine 1.0 mg/dL (0.7-1.3) 08/10/16 06:45 Creat Clearance w eGFR > 60 (>60) 08/10/16 01:00 Calcium 8.4 mg/dL (8.5-10.1) L 08/10/16 06:45 Total Bilirubin 0.6 mg/dL (0.2-1.0) 08/10/16 01:00 AST 56 U/L (15-37) H 08/10/16 01:00 ALT 65 U/L (12-78) 08/10/16 01:00 Alkaline Phosphatase 119 U/L (45-117) H 08/10/16 01:00 Total Protein 6.7 g/dl (6.4-8.2) 08/10/16 01:00 Albumin 3.3 g/dl (3.4-5.0) L 08/10/16 01:00 Active Medications Generic Name Dose Route Start Last Admin Trade Name Freq PRN Reason Stop Dose Admin Acetaminophen 650 mg 08/10/16 03:03 08/12/16 09:06 Tylenol - PO 650 mg Q4H PRN Administration FEVER OR PAIN Alprazolam 2 mg 08/10/16 10:00 08/12/16 13:55 Xanax - PO 2 mg QID PRICE Administration Amlodipine Besylate 5 mg 08/10/16 10:00 08/12/16 09:19 Norvasc - PO Not Given DAILY PRICE Aspirin 81 mg 08/10/16 10:00 08/12/16 09:04 Asa - PO 81 mg DAILY PRICE Administration Atorvastatin Calcium 20 mg 08/10/16 22:00 08/11/16 22:10 Lipitor - PO 20 mg HS PRICE Administration Calcium Carbonate/Cholecalciferol 1 tab 08/12/16 10:00 08/12/16 11:55 Os-Tra 500+D - PO 1 tab DAILY PRICE Administration Clonidine 0.2 mg 08/10/16 10:00 08/12/16 09:05 Catapres - PO 0.2 mg BID PRICE Administration Collagenase 1 applic 08/10/16 10:00 08/12/16 09:05 Santyl - TP 1 applic DAILY PRICE Administration Furosemide 20 mg 08/10/16 10:00 08/12/16 09:05 Lasix - PO 20 mg DAILY PRICE Administration Heparin Sodium (Porcine) 5,000 unit 08/10/16 10:00 08/12/16 09:05 Heparin - SQ 5,000 unit BID PRICE Administration Sodium Chloride 1,000 mls @ 75 mls/hr 08/10/16 03:15 08/12/16 06:09 Normal Saline - IV 75 mls/hr ASDIR PRICE Administration Vancomycin HCl 1,250 mg/ 250 mls @ 250 mls/hr 08/10/16 22:00 08/12/16 10:20 Dextrose IVPB 250 mls/hr BID PRICE Administration Protocol Insulin Aspart 1 vial 08/11/16 22:00 08/12/16 12:42 Novolog Vial Sliding Scale - SQ Not Given ACHS [facility] Protocol Metoclopramide HCl 10 mg 08/11/16 11:45 08/12/16 11:53 Reglan - PO 10 mg TIDAC PRICE Administration Ondansetron HCl 4 mg 08/10/16 12:01 08/10/16 20:51 Zofran Injection IVPB 4 mg Q4H PRN Administration NAUSEA Piperacillin Sod/Tazobactam Sod 3.375 gm 08/10/16 18:00 08/12/16 09:05 Zosyn 3.375gm Ivpb (Pre-Docked) IVPB 3.375 gm Q8H-IV PRICE Administration Protocol Tramadol HCl 50 mg 08/10/16 03:15 08/11/16 12:00 Ultram - PO 50 mg Q4H PRN Administration Valsartan 160 mg 08/10/16 10:00 08/12/16 09:19 Diovan - PO Not Given DAILY [facility] Microbiology 08/10/16 03:10 Gram Stain - Final Foot - Left Sole Wound Culture - Preliminary Non Lactose Fermenting Gnb Mr S Aureus Beta Hemolytic Streptococcus A Staphylococcus Coagulase Neg 08/10/16 01:00 Blood Culture - Preliminary Blood - Peripheral Venous NO GROWTH OBTAINED AFTER 48 HOURS, INCUBATION TO CONTINUE FOR 3 DAYS. 08/10/16 01:00 Blood Culture - Preliminary Blood - Peripheral Venous NO GROWTH OBTAINED AFTER 48 HOURS, INCUBATION TO CONTINUE FOR 3 DAYS. Imaging MRI of L foot: anterior calcaneus osteomyelitis U/S abd on 08/10: Hepatomegaly with diffuse fatty infiltration of the liver X-ray of LLE on 08/10: Soft tissue air/ulceration in the plantar soft tissues of the hindfoot is again noted. Deformities of the calcaneus and talus are unchanged in appearance. Partial amputation of the fifth ray is again noted. There is a linear metallic density measuring about 3 mm in size over the lateral forefoot seen on the oblique view of the foot raising possibility of foreign body, however more likely reflecting artifact as it is only seen on one view. No definite radiographic evidence of osteomyelitis is seen CXR on 08/10: No acute pathology. No significant change ASSESSMENT/PLAN: 51 yo M admitted to the med-surg with sepsis 2/2 cellulitis. ID: non-purulent cellulitis of LLE in the setting of osteomyelitis - Significant h/o osteomyelitis in rib, LLE and collar bone 2/2 IV drug use - MRI confirms L anterior calcaneus osteomyelitis - L foot wound culture grew multiple organisms sensitive to vanco - Afrebile, WBC trending down - CRP trending up - Cont. vanco + zosyn day 3 * f/u vanco trough GI: RUQ and RLQ pain - Improved - Diabetic gastroparesis vs. liver pathology due to untreated hep C - Abd U/S shows fatty infiltration - Cont. reglan TID Psy: substance abuse on methadone; PTSD and anxiety - Dosed confirmed with [facility] - Cont. methadone 70mg daily - Cont. alprazonam 2mg QID Cardiac: HLD - Cont. lipitor 20mg HS - Cont. ASA 81mg daily Renal: HTN - Cont. norvasc 5mg, clonidine 0.2mg BID, lasix 20mg daily, diovan 160mg daily Endocrine: IDDM - Sliding scale - BGM FEN - NS 75ml/hr - Cont. to monitor lytes and Cr - Diabetic diet with low Na+ Prophylaxis - DVT: heparin SQ - GI: not indicated Disposition - Cont. to monitor on med-surg Code status - Full code Visit type - Emergency Visit Emergency Visit: No - New Patient This patient is new to me today: No - Critical Care Critical Care patient: No
[2016-08-12 17:04] LABS: ERYTHROCYTE SEDIMENTATION RATE 71 mm/hr (0-20)
--- NOTE | 2016-08-12 17:07 | PN ---
Teaching Attending Note Name of Resident: Mars Terry ATTENDING PHYSICIAN STATEMENT I saw and evaluated the patient. I reviewed the resident's note and discussed the case with the resident. I agree with the resident's findings and plan as documented. SUBJECTIVE: Pain is less severe. No new complaints. OBJECTIVE: Vital Signs Period Temp Pulse Resp BP Sys/Cross Pulse Ox Last 24 Hr 97.9 F-99.5 F 51-68 18-20 96-139/38-60 98-98 HEART: S1S2, RRR LUNGS: Clear ABDOMEN: Obese, non-tender, non-distended, normal BS EXTREMITIES: No edema, decreased erythema of LLE, s/p right BKA ASSESSMENT AND PLAN: This is a 51-year-old man with a history of IDDM, HTN, hyperlipidemia, hepatitis C, PTSD, anxiety disorder, chronic pain, substance abuse, neuropathy, endocarditis, MRSA bacteremia, right BKA, left 5th toe amputation, osteomyelitis of LLE and rib, who presented to the ER with abdominal pain, nausea, vomiting, diarrhea, fever and chills. 1. Sepsis secondary to left calcaneus osteomyelitis from diabetic foot ulcer - Continue Zosyn, Vancomycin - Continue wound care - Blood cultures negative after 48 hrs - Wound culture growing gram negative rods, group A Strep, coagulase negative Staph, MRSA - Podiatry follow up 2. Opiate dependence - Continue Methadone maintenance 3. Abdominal pain with nausea and vomiting - Possible diabetic gastroparesis - Reglan started 4. HTN - Continue Norvasc, Diovan, Clonidine, Lasix 5. IDDM with neuropathy - Continue Novolog sliding scale 6. Chronic pain 7. PTSD and anxiety disorder - Continue Xanax 8. Hyperlipidemia - Continue Lipitor
[2016-08-12] MEDS: traMADol HCL 50 MG TABLET PO PRN ×2 (17:52→21:51)
[2016-08-12] MEDS: ATORVASTATIN CA 20 MG TABLET (FP) PO SCH (21:39)
[2016-08-13] MEDS: ACETAMINOPHEN 325 MG TABLET (FP) PO PRN (01:22)
[2016-08-13] MEDS: PIPERACILLIN/TAZOB 3.375 GM/50 ML PRE-DOCKED IVPB SCH ×2 (01:24→10:04)
[2016-08-13] MEDS: SODIUM CHLORIDE 1,000 ML IV SCH ×2 (06:04→17:29)
[2016-08-13] MEDS ORDERED: METHADONE HCL 10 MG TABLET PO SCH (06:15)
[2016-08-13] MEDS ORDERED: METHADONE HCL 40 MG DISPERSABLE TABLET ONE (06:25)
[2016-08-13] MEDS ORDERED: METHADONE HCL 10 MG TABLET ONE (06:25)
[2016-08-13] MEDS: METHADONE 40 MG, METHADONE 30 MG PO SCH (06:26)
[2016-08-13] MEDS: INSULIN SLIDING SCALE (NOVOLOG) 1 VIAL SQ SCH ×3 (06:27→17:27)
[2016-08-13] MEDS: METOCLOPRAMIDE HCL 10 MG TABLET (FP) PO SCH ×3 (06:28→17:28)
[2016-08-13 08:46] LABS: BASOPHIL 0.7 % (0-2.0); EOSINOPHIL 3.1 % (0-4.5); MCH 28.1 pg (25.7-33.7); MCHC 33.5 g/dl (32.0-35.9); MEAN CELL VOLUME 83.9 fl (80-96); MEAN PLT VOLUME 9.3 fl (7.5-11.1); NEUTROPHILS 65.7 % (42.8-82.8); PLATELET COUNT 150 K/MM3 (134-434); RDW 14.2 % (11.9-15.9)
[2016-08-13 09:13] LABS: CALCIUM 8.3 mg/dL (8.5-10.1); COCKROFT - GAULT 144.14
[2016-08-13] MEDS: HEPARIN NA (PORCINE) 5,000 UNITS/ML 1ML VIAL SQ SCH ×2 (10:04→21:56)
[2016-08-13] MEDS: ASPIRIN 81 MG CHEWABLE TABLETS PO SCH (10:05)
[2016-08-13] MEDS: cloNIDine HCL 0.1 MG TABLET PO SCH ×2 (10:05→21:56)
[2016-08-13] MEDS: ALPRAZolam 2 MG TABLET PO SCH ×4 (10:05→21:57)
[2016-08-13] MEDS: VALSARTAN 160 MG TABLET (UD) PO SCH (10:05)
[2016-08-13] MEDS: amLODIPine BESYLATE 5 MG TABLET (FP) PO SCH (10:05)
[2016-08-13] MEDS: FUROSEMIDE 20 MG TABLET (FP) PO SCH (10:05)
[2016-08-13] MEDS: CALCIUM 500MG/VIT-D 200 UNITS COMBO TABLET (FP) PO SCH (10:06)
[2016-08-13] MEDS: COLLAGENASE CLOSTRIDIUM HIST. 30 GRAMS TUBE TP SCH (10:06)
[2016-08-13] MEDS: VANCOMYCIN 1,250 MG in DEXTROSE 5%-WATER - 250 ML IVPB SCH ×2 (11:39→21:57)
[2016-08-13] MEDS ORDERED: PATIENT'S OWN MEDICATION (NON-FORMULARY) (Insulin Lispro [Humalog] 100 UNIT) SQ SCH (15:15)
--- NOTE | 2016-08-13 17:03 | PN ---
Teaching Attending Note Name of Resident: Mars Terry ATTENDING PHYSICIAN STATEMENT I saw and evaluated the patient. I reviewed the resident's note and discussed the case with the resident. I agree with the resident's findings and plan as documented. SUBJECTIVE: No complaints. OBJECTIVE: Vital Signs Period Temp Pulse Resp BP Sys/Cross Pulse Ox Last 24 Hr 98.2 F-99.0 F 56-69 17-20 113-142/43-82 HEART: S1S2, RRR LUNGS: Clear ABDOMEN: Obese, non-tender, non-distended, normal BS EXTREMITIES: No edema, decreasing erythema of LLE, s/p right BKA ASSESSMENT AND PLAN: This is a 51-year-old man with a history of IDDM, HTN, hyperlipidemia, hepatitis C, PTSD, anxiety disorder, chronic pain, substance abuse, neuropathy, endocarditis, MRSA bacteremia, right BKA, left 5th toe amputation, osteomyelitis of LLE and rib, who presented to the ER with abdominal pain, nausea, vomiting, diarrhea, fever and chills. 1. Sepsis secondary to left calcaneus osteomyelitis from diabetic foot ulcer - Continue Zosyn, Vancomycin - Continue wound care - Blood cultures negative after 72 hrs - Wound culture growing Acinetobacter, group A Strep, coagulase negative Staph, MRSA - Podiatry follow up 2. Opiate dependence - Continue Methadone maintenance 3. Abdominal pain with nausea and vomiting - Possible diabetic gastroparesis - Continue Reglan 4. HTN - Continue Norvasc, Diovan, Clonidine, Lasix 5. IDDM with neuropathy - Continue Novolog sliding scale 6. Chronic pain 7. PTSD and anxiety disorder - Continue Xanax 8. Hyperlipidemia - Continue Lipitor
--- NOTE | 2016-08-13 17:24 | PN ---
Progress Note (short form) - Note Progress Note: feels a bit better fevers resolving upset he has osteomyelitis Vital Signs Period Temp Pulse Resp BP Sys/Cross Pulse Ox Last 24 Hr 98.2 F-99.0 F 56-69 17-20 113-142/43-82 cor-rrr lungs clear abd soft,nt ext less erythema of the leg CBC, BMP 08/13/16 07:55 08/13/16 07:55 Laboratory Tests 08/10/16 08/12/16 08/13/16 09:20 06:15 09:30 ESR 43 H C-Reactive Protein 13.7 H D Vancomycin Trough 14.106 H Microbiology 08/10/16 03:10 Foot - Left Sole Gram Stain - Final 08/10/16 03:10 Foot - Left Sole Wound Culture - Final Acinetobacter Baumannii/Haemol Mr S Aureus Beta Hemolytic Streptococcus A Staphylococcus Coagulase Neg 08/10/16 01:00 Blood - Peripheral Venous Blood Culture - Preliminary NO GROWTH OBTAINED AFTER 72 HOURS, INCUBATION TO CONTINUE FOR 2 DAYS. 08/10/16 01:00 Blood - Peripheral Venous Blood Culture - Preliminary NO GROWTH OBTAINED AFTER 72 HOURS, INCUBATION TO CONTINUE FOR 2 DAYS. 08/10/16 08:41 Urine - Urine Clean Catch Urine Culture - Final NO GROWTH OBTAINED 08/10/16 01:00 Nasopharyngeal Swab Respiratory Virus Panel - Preliminary 08/10/16 01:00 Nasopharyngeal Swab Influenza Types A,B Antigen (NORA) - Final 08/10/16 01:00 Nasopharyngeal Swab - Final a/p calcaneal osteomyelitis cellulitis- diabetes remote history of substance use f/u cultures f/u with podiatry continue vancomycin d/c zosyn switch to unasyn Problem List - Problems (1) Cellulitis of left leg Code(s): L03.116 - CELLULITIS OF LEFT LOWER LIMB (2) Chronic foot ulcer Code(s): L97.509 - NON-PRESSURE CHRONIC ULCER OTH PRT UNSP FOOT W UNSP SEVERITY (3) Diabetes mellitus Code(s): E11.9 - TYPE 2 DIABETES MELLITUS WITHOUT COMPLICATIONS
[2016-08-13] MEDS: oxyCODONE HCL 5 MG TABLET PO PRN ×2 (17:28→21:59)
--- NOTE | 2016-08-13 17:56 | PN ---
Physical Exam: SUBJECTIVE: Patient seen and examined at bedside. Patient still c/o L rib pain, stomach pain , foot pain and requests oxycodone. OBJECTIVE: Vital Signs Period Temp Pulse Resp BP Sys/Cross Pulse Ox Last 24 Hr 98.2 F-99.0 F 56-69 17-20 113-142/43-82 GENERAL: AAO x 3, cooperative, able to speak in full sentences EYES: L eye removed. R eye PERRLA EARS, NOSE, THROAT: Moist mucous membranes. LUNGS: CTAB HEART: RRR, S1 S2 present, no murmur ABDOMEN: + bowel sounds, tenderness in all quadrants, no guarding LOWER EXTREMITIES: RLE s/p BKA. LLE still erythematous (redness retreated ~5 cm from drawn margin yesterday), and still warm, skin sloughing and scaling, 5th metatarsal amputated, L plantar foot ulcer dressing in place NEUROLOGICAL: Cranial nerves II-XII grossly intact SKIN: Warm, dry CBCD WBC 6.0 K/mm3 (4.0-10.0) 08/13/16 07:55 RBC 4.09 M/mm3 (4.00-5.60) 08/13/16 07:55 Hgb 11.5 GM/dL (11.7-16.9) L 08/13/16 07:55 Hct 34.3 % (35.4-49) L 08/13/16 07:55 MCV 83.9 fl (80-96) 08/13/16 07:55 MCHC 33.5 g/dl (32.0-35.9) 08/13/16 07:55 RDW 14.2 % (11.9-15.9) 08/13/16 07:55 Plt Count 150 K/MM3 (134-434) 08/13/16 07:55 MPV 9.3 fl (7.5-11.1) 08/13/16 07:55 CMP Sodium 136 mmol/L (136-145) 08/13/16 07:55 Potassium 4.3 mmol/L (3.5-5.1) 08/13/16 07:55 Chloride 101 mmol/L (98-107) 08/13/16 07:55 Carbon Dioxide 27 mmol/L (21-32) 08/13/16 07:55 Anion Gap 8 (8-16) 08/13/16 07:55 BUN 15 mg/dL (7-18) 08/13/16 07:55 Creatinine 1.0 mg/dL (0.7-1.3) 08/13/16 07:55 Creat Clearance w eGFR > 60 (>60) 08/10/16 01:00 Calcium 8.3 mg/dL (8.5-10.1) L 08/13/16 07:55 Total Bilirubin 0.6 mg/dL (0.2-1.0) 08/10/16 01:00 AST 56 U/L (15-37) H 08/10/16 01:00 ALT 65 U/L (12-78) 08/10/16 01:00 Alkaline Phosphatase 119 U/L (45-117) H 08/10/16 01:00 Total Protein 6.7 g/dl (6.4-8.2) 08/10/16 01:00 Albumin 3.3 g/dl (3.4-5.0) L 08/10/16 01:00 Active Medications Generic Name Dose Route Start Last Admin Trade Name Freq PRN Reason Stop Dose Admin Acetaminophen 650 mg 08/10/16 03:03 08/13/16 01:22 Tylenol - PO 650 mg Q4H PRN Administration FEVER OR PAIN Alprazolam 2 mg 08/10/16 10:00 08/13/16 17:28 Xanax - PO 2 mg QID PRICE Administration Amlodipine Besylate 5 mg 08/10/16 10:00 08/13/16 10:05 Norvasc - PO 5 mg DAILY PRICE Administration Aspirin 81 mg 08/10/16 10:00 08/13/16 10:05 Asa - PO 81 mg DAILY PRICE Administration Atorvastatin Calcium 20 mg 08/10/16 22:00 08/12/16 21:39 Lipitor - PO 20 mg HS PRICE Administration Calcium Carbonate/Cholecalciferol 1 tab 08/12/16 10:00 08/13/16 10:06 Os-Tra 500+D - PO 1 tab DAILY PRICE Administration Clonidine 0.2 mg 08/10/16 10:00 08/13/16 10:05 Catapres - PO 0.2 mg BID PRICE Administration Collagenase 1 applic 08/10/16 10:00 08/13/16 10:06 Santyl - TP 1 applic DAILY PRICE Administration Docusate Sodium 100 mg 08/13/16 22:00 Colace - PO BID PRICE Furosemide 20 mg 08/10/16 10:00 08/13/16 10:05 Lasix - PO 20 mg DAILY PRICE Administration Heparin Sodium (Porcine) 5,000 unit 08/10/16 10:00 08/13/16 10:04 Heparin - SQ 5,000 unit BID PRICE Administration Sodium Chloride 1,000 mls @ 75 mls/hr 08/10/16 03:15 08/13/16 17:29 Normal Saline - IV 75 mls/hr ASDIR PRICE Administration Vancomycin HCl 1,250 mg/ 250 mls @ 250 mls/hr 08/10/16 22:00 08/13/16 11:39 Dextrose IVPB 250 mls/hr BID PRICE Administration Protocol Ampicillin Sodium/Sulbactam 100 mls @ 200 mls/hr 08/13/16 21:00 Sodium 3 gm/ Sodium Chloride IVPB Q6H-IV PRICE Insulin Aspart 1 vial 08/11/16 22:00 08/13/16 17:27 Novolog Vial Sliding Scale - SQ 10 units ACHS PRICE Administration Protocol Lactobacillus Acidophilus 1 tab 08/14/16 10:00 Bacid - PO DAILY PRICE Methadone HCl 40 mg/ Methadone 70 mg 08/13/16 06:30 08/13/16 06:26 HCl 30 mg PO 70 mg DAILY@0600 PRICE Administration Metoclopramide HCl 10 mg 08/11/16 11:45 08/13/16 17:28 Reglan - PO 10 mg TIDAC PRICE Administration Ondansetron HCl 4 mg 08/10/16 12:01 08/10/16 20:51 Zofran Injection IVPB 4 mg Q4H PRN Administration NAUSEA Oxycodone HCl 30 mg 08/13/16 15:08 08/13/16 17:28 Roxicodone - PO 08/14/16 15:07 30 mg Q4H PRN Administration PAIN Senna 1 tab 08/13/16 22:00 Senna - PO BID PRICE Tramadol HCl 50 mg 08/10/16 03:15 08/12/16 21:51 Ultram - PO 50 mg Q4H PRN Administration Valsartan 160 mg 08/10/16 10:00 08/13/16 10:05 Diovan - PO 160 mg DAILY PRICE Administration Imaging MRI of L foot: anterior calcaneus osteomyelitis U/S abd on 08/10: Hepatomegaly with diffuse fatty infiltration of the liver X-ray of LLE on 08/10: Soft tissue air/ulceration in the plantar soft tissues of the hindfoot is again noted. Deformities of the calcaneus and talus are unchanged in appearance. Partial amputation of the fifth ray is again noted. There is a linear metallic density measuring about 3 mm in size over the lateral forefoot seen on the oblique view of the foot raising possibility of foreign body, however more likely reflecting artifact as it is only seen on one view. No definite radiographic evidence of osteomyelitis is seen CXR on 08/10: No acute pathology. No significant change ASSESSMENT/PLAN: 51 yo M admitted to the med-surg with sepsis 2/2 cellulitis. ID: non-purulent cellulitis of LLE in the setting of osteomyelitis - Significant h/o osteomyelitis in rib, LLE and collar bone 2/2 IV drug use - MRI confirms L anterior calcaneus osteomyelitis - L foot wound culture grew multiple organisms sensitive to vanco and zosyn - Afrebile, WBC trending down - F/u CRP - Zosyn d/c and switched to unasyn day 1 - Vanco trough 14.1, cont. vanco day 4 - Awaiting podiatry re-evaluation GI: RUQ and RLQ pain - Improved - 2/2 Diabetic gastroparesis - Cont. reglan TID - Added senna and colace for constipation Psy: substance abuse on methadone; PTSD and anxiety - Dosed confirmed with [facility] - Cont. methadone 70mg daily - Cont. alprazonam 2mg QID Cardiac: HLD - Cont. lipitor 20mg HS - Cont. ASA 81mg daily Renal: HTN - Cont. norvasc 5mg, clonidine 0.2mg BID, lasix 20mg daily, diovan 160mg daily Endocrine: IDDM - Remains poorly controlled - Add levemir 20 units HS - Cont. Sliding scale FEN - NS 75ml/hr - Cont. to monitor lytes and Cr - Diabetic diet with low Na+ Prophylaxis - DVT: heparin SQ - GI: not indicated Disposition - Awaiting podiatry re-evaluation then discharge on intermediate project manager abx with picc line Code status - Full code Visit type - Emergency Visit Emergency Visit: No - New Patient This patient is new to me today: No - Critical Care Critical Care patient: No
[2016-08-13] MEDS: AMPICILLIN NA/SULBACTAM NA 3 GM in SODIUM CHLORIDE 100 ML IVPB SCH (21:41)
[2016-08-13] MEDS: DOCUSATE SODIUM 100 MG CAPSULE (FP) PO SCH (21:56)
[2016-08-13] MEDS: ATORVASTATIN CA 20 MG TABLET (FP) PO SCH (21:56)
[2016-08-13] MEDS: SENNOSIDES 8.6MG TABLET (FP) PO SCH (21:57)
[2016-08-13] MEDS: INSULIN DETEMIR 100 UNITS/ML MDV SQ SCH (21:58)
[2016-08-13] MEDS ORDERED: cloNIDine-TTS 0.1 MG/24 HRS PATCH.TDWK TD SCH (22:00)
[2016-08-14] MEDS ORDERED: TAMSULOSIN HCL 0.4 MG CAP.ER.24H (FP) PO ONE (01:41)
[2016-08-14] MEDS: AMPICILLIN NA/SULBACTAM NA 3 GM in SODIUM CHLORIDE 100 ML IVPB SCH ×4 (03:10→21:51)
[2016-08-14] MEDS: oxyCODONE HCL 5 MG TABLET PO PRN ×5 (03:40→23:55)
[2016-08-14] MEDS ORDERED: METHADONE HCL 10 MG TABLET ONE (06:44)
[2016-08-14] MEDS ORDERED: METHADONE HCL 40 MG DISPERSABLE TABLET ONE (06:44)
[2016-08-14] MEDS: INSULIN SLIDING SCALE (NOVOLOG) 1 VIAL SQ SCH ×4 (06:50→22:00)
[2016-08-14] MEDS: METHADONE 40 MG, METHADONE 30 MG PO SCH (06:55)
[2016-08-14] MEDS: METOCLOPRAMIDE HCL 10 MG TABLET (FP) PO SCH ×3 (06:56→16:33)
[2016-08-14] MEDS ORDERED: INSULIN SLIDING SCALE (NOVOLOG) 1 VIAL SQ SCH (07:00)
[2016-08-14] MEDS: SODIUM CHLORIDE 1,000 ML IV SCH ×2 (09:07→12:45)
[2016-08-14] MEDS: LACTOBACILLUS ACIDOPHILUS 1 EACH TAB (FP) PO SCH (09:38)
[2016-08-14] MEDS: FUROSEMIDE 20 MG TABLET (FP) PO SCH (09:39)
[2016-08-14] MEDS: DOCUSATE SODIUM 100 MG CAPSULE (FP) PO SCH ×2 (09:39→21:52)
[2016-08-14] MEDS: cloNIDine HCL 0.1 MG TABLET PO SCH ×2 (09:39→21:52)
[2016-08-14] MEDS: VALSARTAN 160 MG TABLET (UD) PO SCH (09:39)
[2016-08-14] MEDS: SENNOSIDES 8.6MG TABLET (FP) PO SCH ×2 (09:39→21:54)
[2016-08-14] MEDS: CALCIUM 500MG/VIT-D 200 UNITS COMBO TABLET (FP) PO SCH (09:39)
[2016-08-14] MEDS: amLODIPine BESYLATE 5 MG TABLET (FP) PO SCH (09:39)
[2016-08-14] MEDS: ALPRAZolam 2 MG TABLET PO SCH ×4 (09:39→21:51)
[2016-08-14] MEDS: ASPIRIN 81 MG CHEWABLE TABLETS PO SCH (09:39)
[2016-08-14] MEDS: HEPARIN NA (PORCINE) 5,000 UNITS/ML 1ML VIAL SQ SCH ×2 (09:40→21:53)
[2016-08-14] MEDS: COLLAGENASE CLOSTRIDIUM HIST. 30 GRAMS TUBE TP SCH (09:41)
[2016-08-14] MEDS ORDERED: POLYETHYLENE GLYCOL 3350 119 GM BTL PO SCH (10:00)
[2016-08-14] MEDS: VANCOMYCIN 1,250 MG in DEXTROSE 5%-WATER - 250 ML IVPB SCH ×2 (10:24→21:51)
--- NOTE | 2016-08-14 11:23 | PN ---
Physical Exam: SUBJECTIVE: Patient seen and examined at bedside. Patient stated that the pain symptoms have improved on oxycodone and reglan. OBJECTIVE: Vital Signs Period Temp Pulse Resp BP Sys/Cross Pulse Ox Last 24 Hr 98.5 F-99.2 F 57-60 17-20 106-153/56-73 95 GENERAL: AAO x 3, cooperative, able to speak in full sentences EYES: L eye removed. R eye PERRLA EARS, NOSE, THROAT: Moist mucous membranes. LUNGS: CTAB HEART: RRR, S1 S2 present, no murmur ABDOMEN: + bowel sounds, tenderness in all quadrants, no guarding LOWER EXTREMITIES: RLE s/p BKA. LLE still erythematous (redness retreated ~6-7 cm from drawn margin yesterday), and still warm, skin sloughing and scaling, 5th metatarsal amputated, L plantar foot ulcer dressing in place NEUROLOGICAL: Cranial nerves II-XII grossly intact SKIN: Warm, dry Laboratory Results - last 24 hr 08/13/16 08/13/16 08/13/16 11:39 17:10 21:53 POC Glucometer 381 381 355 08/14/16 06:23 POC Glucometer 308 Active Medications Generic Name Dose Route Start Last Admin Trade Name Freq PRN Reason Stop Dose Admin Acetaminophen 650 mg 08/10/16 03:03 08/13/16 01:22 Tylenol - PO 650 mg Q4H PRN Administration FEVER OR PAIN Alprazolam 2 mg 08/10/16 10:00 08/14/16 09:39 Xanax - PO 2 mg QID PRICE Administration Amlodipine Besylate 5 mg 08/10/16 10:00 08/14/16 09:39 Norvasc - PO 5 mg DAILY PRICE Administration Aspirin 81 mg 08/10/16 10:00 08/14/16 09:39 Asa - PO 81 mg DAILY PRICE Administration Atorvastatin Calcium 20 mg 08/10/16 22:00 08/13/16 21:56 Lipitor - PO 20 mg HS PRICE Administration Calcium Carbonate/Cholecalciferol 1 tab 08/12/16 10:00 08/14/16 09:39 Os-Tra 500+D - PO 1 tab DAILY PRICE Administration Clonidine 0.2 mg 08/10/16 10:00 08/14/16 09:39 Catapres - PO 0.2 mg BID PRICE Administration Collagenase 1 applic 08/10/16 10:00 08/14/16 09:41 Santyl - TP 1 applic DAILY PRICE Administration Docusate Sodium 100 mg 08/13/16 22:00 08/14/16 09:39 Colace - PO 100 mg BID PRICE Administration Furosemide 20 mg 08/10/16 10:00 08/14/16 09:39 Lasix - PO 20 mg DAILY PRICE Administration Heparin Sodium (Porcine) 5,000 unit 08/10/16 10:00 08/14/16 09:40 Heparin - SQ 5,000 unit BID PRICE Administration Sodium Chloride 1,000 mls @ 75 mls/hr 08/10/16 03:15 08/14/16 09:07 Normal Saline - IV Not Given ASDIR PRICE Vancomycin HCl 1,250 mg/ 250 mls @ 250 mls/hr 08/10/16 22:00 08/14/16 10:24 Dextrose IVPB 250 mls/hr BID PRICE Administration Protocol Ampicillin Sodium/Sulbactam 100 mls @ 200 mls/hr 08/13/16 21:00 08/14/16 10:24 Sodium 3 gm/ Sodium Chloride IVPB 200 mls/hr Q6H-IV PRICE Administration Insulin Aspart 1 vial 08/14/16 07:00 08/14/16 06:50 Novolog Vial Sliding Scale - SQ 8 units ACHS PRICE Administration Protocol Insulin Detemir 20 units 08/13/16 22:00 08/13/16 21:58 Levemir Vial SQ 20 units HS PRICE Administration Lactobacillus Acidophilus 1 tab 08/14/16 10:00 08/14/16 09:38 Bacid - PO 1 tab DAILY PRICE Administration Methadone HCl 40 mg/ Methadone 70 mg 08/13/16 06:30 08/14/16 06:55 HCl 30 mg PO 70 mg DAILY@0600 PRICE Administration Metoclopramide HCl 10 mg 08/11/16 11:45 08/14/16 06:56 Reglan - PO 10 mg TIDAC PRICE Administration Ondansetron HCl 4 mg 08/10/16 12:01 08/10/16 20:51 Zofran Injection IVPB 4 mg Q4H PRN Administration NAUSEA Oxycodone HCl 30 mg 08/13/16 15:08 08/14/16 09:41 Roxicodone - PO 08/14/16 15:07 30 mg Q4H PRN Administration PAIN Senna 1 tab 08/13/16 22:00 08/14/16 09:39 Senna - PO 1 tab BID PRICE Administration Tramadol HCl 50 mg 08/10/16 03:15 08/12/16 21:51 Ultram - PO 50 mg Q4H PRN Administration Valsartan 160 mg 08/10/16 10:00 08/14/16 09:39 Diovan - PO 160 mg DAILY PRICE Administration Imaging MRI of L foot: anterior calcaneus osteomyelitis U/S abd on 08/10: Hepatomegaly with diffuse fatty infiltration of the liver X-ray of LLE on 08/10: Soft tissue air/ulceration in the plantar soft tissues of the hindfoot is again noted. Deformities of the calcaneus and talus are unchanged in appearance. Partial amputation of the fifth ray is again noted. There is a linear metallic density measuring about 3 mm in size over the lateral forefoot seen on the oblique view of the foot raising possibility of foreign body, however more likely reflecting artifact as it is only seen on one view. No definite radiographic evidence of osteomyelitis is seen CXR on 08/10: No acute pathology. No significant change ASSESSMENT/PLAN: 51 yo M admitted to the med-surg with sepsis 2/2 cellulitis. ID: non-purulent cellulitis of LLE in the setting of osteomyelitis - Significant h/o osteomyelitis in rib, LLE and collar bone 2/2 IV drug use - MRI confirms L anterior calcaneus osteomyelitis - L foot wound culture grew multiple organisms sensitive to vanco and zosyn - Afrebile - F/u CRP - On unasyn day 2, vanco day 5 - Awaiting podiatry re-evaluation * Spoke to Dr. Harp's office and left ms requesting re-evaluation before discharge GI: RUQ and RLQ pain - Improved - 2/2 Diabetic gastroparesis - Cont. reglan TID - Added senna and colace for constipation Psy: substance abuse on methadone; PTSD and anxiety - Dosed confirmed with [facility] - Cont. methadone 70mg daily - Cont. alprazonam 2mg QID Cardiac: HLD - Cont. lipitor 20mg HS - Cont. ASA 81mg daily Renal: HTN - Cont. norvasc 5mg, clonidine 0.2mg BID, lasix 20mg daily, diovan 160mg daily Endocrine: IDDM - Add levemir 20 units HS - Cont. Sliding scale FEN - NS 75ml/hr - Cont. to monitor lytes and Cr - Diabetic diet with low Na+ Prophylaxis - DVT: heparin SQ - GI: not indicated Disposition - Awaiting podiatry re-evaluation then discharge on usp abx with picc line Code status - Full code Visit type - Emergency Visit Emergency Visit: No - New Patient This patient is new to me today: No - Critical Care Critical Care patient: No
[2016-08-14] MEDS ORDERED: INSULIN (NOVOLOG) ASPART 100 UNITS/ML 10ML VIAL ONE ×3 (11:56→21:30)
--- NOTE | 2016-08-14 12:18 | PN ---
Progress Note (short form) - Note Progress Note: feels a bit better severe pain in his ankle Vital Signs Period Temp Pulse Resp BP Sys/Cross Pulse Ox Last 24 Hr 98.5 F-99.2 F 57-60 17-20 106-153/56-73 95-99 cor-rrr lungs decreased bs at bases abd soft,nt ext decreaseing erythema and edema of the leg ulcer examined, dressing with brown drainage, wound without purulence CBC, BMP 08/13/16 07:55 08/13/16 07:55 Laboratory Tests 08/10/16 08/12/16 08/13/16 09:20 06:15 09:30 ESR 43 H C-Reactive Protein 13.7 H D Vancomycin Trough 14.106 H Microbiology 08/10/16 01:00 Nasopharyngeal Swab Respiratory Virus Panel - Preliminary 08/10/16 01:00 Blood - Peripheral Venous Blood Culture - Preliminary NO GROWTH OBTAINED AFTER 96 HOURS, INCUBATION TO CONTINUE FOR 1 DAYS. 08/10/16 01:00 Blood - Peripheral Venous Blood Culture - Preliminary NO GROWTH OBTAINED AFTER 96 HOURS, INCUBATION TO CONTINUE FOR 1 DAYS. 08/10/16 03:10 Foot - Left Sole Gram Stain - Final 08/10/16 03:10 Foot - Left Sole Wound Culture - Final Acinetobacter Baumannii/Haemol Mr S Aureus Beta Hemolytic Streptococcus A Staphylococcus Coagulase Neg 08/10/16 08:41 Urine - Urine Clean Catch Urine Culture - Final NO GROWTH OBTAINED 08/10/16 01:00 Nasopharyngeal Swab Influenza Types A,B Antigen (NORA) - Final 08/10/16 01:00 Nasopharyngeal Swab - Final a/p calcaneal osteomyelitis cellulitis- diabetes remote history of substance use f/u cultures f/u with podiatry continue vancomycin d/c zosyn switch to unasyn will require skilled nursing iv antibiotics Problem List - Problems (1) Cellulitis of left leg Code(s): L03.116 - CELLULITIS OF LEFT LOWER LIMB (2) Chronic foot ulcer Code(s): L97.509 - NON-PRESSURE CHRONIC ULCER OTH PRT UNSP FOOT W UNSP SEVERITY (3) Diabetes mellitus Code(s): E11.9 - TYPE 2 DIABETES MELLITUS WITHOUT COMPLICATIONS
[2016-08-14] MEDS ORDERED: PT OWN MED DRAWER 7, Y5N ONE ×2 (15:28→21:42)
--- NOTE | 2016-08-14 16:58 | PN ---
Teaching Attending Note Name of Resident: Mars Terry ATTENDING PHYSICIAN STATEMENT I saw and evaluated the patient. I reviewed the resident's note and discussed the case with the resident. I agree with the resident's findings and plan as documented. SUBJECTIVE: Patient complains of pain in left leg and foot. OBJECTIVE: Vital Signs Period Temp Pulse Resp BP Sys/Cross Pulse Ox Last 24 Hr 98.5 F-99.2 F 52-60 15-20 106-153/56-73 95-99 HEART: S1S2, RRR LUNGS: Clear ABDOMEN: Obese, non-tender, non-distended, normal BS EXTREMITIES: No edema, decreasing erythema of LLE, s/p right BKA, s/p left 5th toe amputation ASSESSMENT AND PLAN: This is a 51-year-old man with a history of IDDM, HTN, hyperlipidemia, hepatitis C, PTSD, anxiety disorder, chronic pain, substance abuse, neuropathy, endocarditis, MRSA bacteremia, right BKA, left 5th toe amputation, osteomyelitis of LLE and rib, who presented to the ER with abdominal pain, nausea, vomiting, diarrhea, fever and chills. 1. Sepsis secondary to left calcaneus osteomyelitis from diabetic foot ulcer - Continue Vancomycin - Zosyn changed to Unasyn - Continue wound care - Blood cultures negative - Wound culture growing Acinetobacter, group A Strep, coagulase negative Staph, MRSA - Podiatry follow up 2. Opiate dependence - Continue Methadone maintenance 3. Abdominal pain with nausea and vomiting - Possible diabetic gastroparesis - Continue Reglan 4. HTN - Continue Norvasc, Diovan, Clonidine, Lasix 5. IDDM, uncontrolled, with neuropathy - Start Levemir - Continue Novolog sliding scale 6. Chronic pain 7. PTSD and anxiety disorder - Continue Xanax 8. Hyperlipidemia - Continue Lipitor
[2016-08-14] MEDS: INSULIN DETEMIR 100 UNITS/ML MDV SQ SCH (21:53)
[2016-08-14] MEDS: ATORVASTATIN CA 20 MG TABLET (FP) PO SCH (21:54)
[2016-08-15] MEDS: oxyCODONE HCL 5 MG TABLET PO PRN ×4 (03:42→21:47)
[2016-08-15] MEDS: AMPICILLIN NA/SULBACTAM NA 3 GM in SODIUM CHLORIDE 100 ML IVPB SCH ×4 (03:43→21:29)
[2016-08-15] MEDS ORDERED: METHADONE HCL 10 MG TABLET ONE (06:19)
[2016-08-15] MEDS ORDERED: METHADONE HCL 40 MG DISPERSABLE TABLET ONE (06:19)
[2016-08-15] MEDS: METOCLOPRAMIDE HCL 10 MG TABLET (FP) PO SCH ×3 (06:33→16:11)
[2016-08-15] MEDS: METHADONE 40 MG, METHADONE 30 MG PO SCH (06:33)
[2016-08-15] MEDS: INSULIN SLIDING SCALE (NOVOLOG) 1 VIAL SQ SCH ×4 (06:38→21:31)
[2016-08-15] MEDS: SODIUM CHLORIDE 1,000 ML IV SCH ×2 (07:31→08:18)
[2016-08-15] MEDS ORDERED: PT OWN MED DRAWER 7, Y5N ONE (08:16)
[2016-08-15] MEDS: ASPIRIN 81 MG CHEWABLE TABLETS PO SCH (09:14)
[2016-08-15] MEDS: VALSARTAN 160 MG TABLET (UD) PO SCH (09:14)
[2016-08-15] MEDS: FUROSEMIDE 20 MG TABLET (FP) PO SCH (09:14)
[2016-08-15] MEDS: cloNIDine HCL 0.1 MG TABLET PO SCH ×2 (09:14→21:30)
[2016-08-15] MEDS: SENNOSIDES 8.6MG TABLET (FP) PO SCH ×2 (09:15→21:32)
[2016-08-15] MEDS: amLODIPine BESYLATE 5 MG TABLET (FP) PO SCH (09:15)
[2016-08-15] MEDS: CALCIUM 500MG/VIT-D 200 UNITS COMBO TABLET (FP) PO SCH (09:15)
[2016-08-15] MEDS: DOCUSATE SODIUM 100 MG CAPSULE (FP) PO SCH ×2 (09:16→21:30)
[2016-08-15] MEDS: HEPARIN NA (PORCINE) 5,000 UNITS/ML 1ML VIAL SQ SCH ×2 (09:16→21:30)
[2016-08-15] MEDS: LACTOBACILLUS ACIDOPHILUS 1 EACH TAB (FP) PO SCH (09:16)
[2016-08-15] MEDS: ALPRAZolam 2 MG TABLET PO SCH ×4 (09:17→21:32)
--- NOTE | 2016-08-15 09:44 | PN ---
Progress Note (short form) - Note Progress Note: Seen at bedside in NAD PT in pain Denies CP SOB and Calf pain Ulcer plantar aspect left foot stable , granular not draining No signs of ascending cellulitis Tender on palpation NO crepitus Impression Diabetic ulcer left foot Plan: Discussed case with Dr Harp as per plan IVABX, Wound care center on out pt basis
[2016-08-15] MEDS: COLLAGENASE CLOSTRIDIUM HIST. 30 GRAMS TUBE TP SCH (09:58)
[2016-08-15] MEDS: VANCOMYCIN 1,250 MG in DEXTROSE 5%-WATER - 250 ML IVPB SCH ×2 (09:58→21:32)
[2016-08-15] MEDS ORDERED: SODIUM PHOSPHATE/NA BIPHOS 133 ML ENEMA PR ONE (10:19)
--- NOTE | 2016-08-15 10:19 | PN ---
Physical Exam: SUBJECTIVE: Patient seen and examined OBJECTIVE: Vital Signs Period Temp Pulse Resp BP Sys/Cross Pulse Ox Last 24 Hr 97.8 F-98.5 F 52-59 15-20 140-160/64-73 99 GENERAL: The patient is awake, alert, and fully oriented, in no acute distress. LUNGS: Breath sounds equal, clear to auscultation bilaterally, no wheezes, no crackles, no accessory muscle use. HEART: Regular rate and rhythm, S1, S2 without murmur, rub or gallop. ABDOMEN: Soft, nontender, nondistended, normoactive bowel sounds, no guarding, no rebound, no hepatosplenomegaly, no masses. EXTREMITIES: No edema, decreasing erythema of LLE, s/p right BKA, s/p left 5th toe amputation Laboratory Results - last 24 hr 08/14/16 08/14/16 08/14/16 12:13 16:26 21:56 POC Glucometer 356 343 385 08/15/16 06:36 POC Glucometer 370 Active Medications Generic Name Dose Route Start Last Admin Trade Name Freq PRN Reason Stop Dose Admin Acetaminophen 650 mg 08/10/16 03:03 08/13/16 01:22 Tylenol - PO 650 mg Q4H PRN Administration FEVER OR PAIN Alprazolam 2 mg 08/10/16 10:00 08/15/16 09:17 Xanax - PO 2 mg QID PRICE Administration Amlodipine Besylate 5 mg 08/10/16 10:00 08/15/16 09:15 Norvasc - PO 5 mg DAILY PRICE Administration Aspirin 81 mg 08/10/16 10:00 08/15/16 09:14 Asa - PO 81 mg DAILY PRICE Administration Atorvastatin Calcium 20 mg 08/10/16 22:00 08/14/16 21:54 Lipitor - PO 20 mg HS PRICE Administration Calcium Carbonate/Cholecalciferol 1 tab 08/12/16 10:00 08/15/16 09:15 Os-Tra 500+D - PO 1 tab DAILY PRICE Administration Clonidine 0.2 mg 08/10/16 10:00 08/15/16 09:14 Catapres - PO 0.2 mg BID PRICE Administration Collagenase 1 applic 08/10/16 10:00 08/15/16 09:58 Santyl - TP 1 applic DAILY PRICE Administration Docusate Sodium 100 mg 08/13/16 22:00 08/15/16 09:16 Colace - PO 100 mg BID PRICE Administration Furosemide 20 mg 08/10/16 10:00 08/15/16 09:14 Lasix - PO 20 mg DAILY PRICE Administration Heparin Sodium (Porcine) 5,000 unit 08/10/16 10:00 08/15/16 09:16 Heparin - SQ 5,000 unit BID PRICE Administration Sodium Chloride 1,000 mls @ 75 mls/hr 08/10/16 03:15 08/15/16 08:18 Normal Saline - IV 75 mls/hr ASDIR PRICE Administration Vancomycin HCl 1,250 mg/ 250 mls @ 250 mls/hr 08/10/16 22:00 08/15/16 09:58 Dextrose IVPB 250 mls/hr BID PRICE Administration Protocol Ampicillin Sodium/Sulbactam 100 mls @ 200 mls/hr 08/13/16 21:00 08/15/16 08:19 Sodium 3 gm/ Sodium Chloride IVPB 200 mls/hr Q6H-IV PRICE Administration Insulin Aspart 1 vial 08/14/16 07:00 08/15/16 06:38 Novolog Vial Sliding Scale - SQ 10 units ACHS PRICE Administration Protocol Insulin Detemir 20 units 08/13/16 22:00 08/14/16 21:53 Levemir Vial SQ 20 units HS PRICE Administration Lactobacillus Acidophilus 1 tab 08/14/16 10:00 08/15/16 09:16 Bacid - PO 1 tab DAILY PRICE Administration Methadone HCl 40 mg/ Methadone 70 mg 08/13/16 06:30 08/15/16 06:33 HCl 30 mg PO 70 mg DAILY@0600 PRICE Administration Metoclopramide HCl 10 mg 08/11/16 11:45 08/15/16 06:33 Reglan - PO 10 mg TIDAC PRICE Administration Ondansetron HCl 4 mg 08/10/16 12:01 08/10/16 20:51 Zofran Injection IVPB 4 mg Q4H PRN Administration NAUSEA Oxycodone HCl 30 mg 08/14/16 18:59 08/15/16 08:10 Roxicodone - PO 30 mg Q4H PRN Administration PAIN Senna 1 tab 08/13/16 22:00 08/15/16 09:15 Senna - PO 1 tab BID PRICE Administration Tramadol HCl 50 mg 08/10/16 03:15 08/12/16 21:51 Ultram - PO 50 mg Q4H PRN Administration Valsartan 160 mg 08/10/16 10:00 08/15/16 09:14 Diovan - PO 160 mg DAILY PRICE Administration ASSESSMENT/PLAN: This is a 51-year-old man with a history of IDDM, HTN, hyperlipidemia, hepatitis C, PTSD, anxiety disorder, chronic pain, substance abuse, neuropathy, endocarditis, MRSA bacteremia, right BKA, left 5th toe amputation, osteomyelitis of LLE and rib, who presented to the ER with abdominal pain, nausea, vomiting, diarrhea, fever and chills. 1. Sepsis secondary to left calcaneus osteomyelitis from diabetic foot ulcer - Continue Unasyn, Vancomycin - Continue wound care - Blood cultures negative - Wound culture growing Acinetobacter, group A Strep, coagulase negative Staph, MRSA - Podiatry follow up 2. Opiate dependence - Continue Methadone maintenance 3. Abdominal pain with nausea and vomiting, possibly secondary to diabetic gastroparesis - Continue Reglan 4. HTN - Continue Norvasc, Diovan, Clonidine, Lasix 5. IDDM, uncontrolled, with neuropathy - Levemir added - Continue Novolog sliding scale 6. Chronic pain 7. PTSD and anxiety disorder - Continue Xanax 8. Hyperlipidemia - Continue Lipitor Visit type - Emergency Visit Emergency Visit: Yes ED Registration Date: 08/10/16 Care time: The patient presented to the Emergency Department on the above date and was hospitalized for further evaluation of their emergent condition. - New Patient This patient is new to me today: No - Critical Care Critical Care patient: No - Discharge Referral Referred to [facility] No
[2016-08-15] MEDS: ATORVASTATIN CA 20 MG TABLET (FP) PO SCH (21:31)
[2016-08-15] MEDS: INSULIN DETEMIR 100 UNITS/ML MDV SQ SCH (21:31)
[2016-08-16] MEDS: SODIUM CHLORIDE 1,000 ML IV SCH ×3 (02:47→22:19)
[2016-08-16] MEDS: AMPICILLIN NA/SULBACTAM NA 3 GM in SODIUM CHLORIDE 100 ML IVPB SCH ×4 (02:48→21:59)
[2016-08-16] MEDS: oxyCODONE HCL 5 MG TABLET PO PRN ×4 (03:36→22:18)
[2016-08-16] MEDS ORDERED: METHADONE HCL 40 MG DISPERSABLE TABLET ONE (06:01)
[2016-08-16] MEDS ORDERED: METHADONE HCL 10 MG TABLET ONE (06:02)
[2016-08-16] MEDS: METHADONE 40 MG, METHADONE 30 MG PO SCH (06:05)
[2016-08-16] MEDS: INSULIN SLIDING SCALE (NOVOLOG) 1 VIAL SQ SCH ×4 (06:06→22:01)
[2016-08-16] MEDS: METOCLOPRAMIDE HCL 10 MG TABLET (FP) PO SCH ×3 (06:06→16:30)
[2016-08-16] MEDS ORDERED: PT OWN MED DRAWER 7, Y5N ONE (08:44)
[2016-08-16 09:01] LABS: MCH 28.2 pg (25.7-33.7); MCHC 33.9 g/dl (32.0-35.9); MEAN CELL VOLUME 83.3 fl (80-96); MEAN PLT VOLUME 9.2 fl (7.5-11.1); PLATELET COUNT 165 K/MM3 (134-434); RDW 14.3 % (11.9-15.9); WHITE BLOOD COUNT 7.4 K/mm3 (4.0-10.0)
[2016-08-16 09:26] LABS: CALCIUM 8.5 mg/dL (8.5-10.1)
[2016-08-16 09:30] LABS: COCKROFT - GAULT 144.14
[2016-08-16 10:27] LABS: METAMYELOCYTE 2 % (0-2); PLATELET ESTIMATE ADEQUATE (NORMAL)
[2016-08-16] MEDS: VANCOMYCIN 1,250 MG in DEXTROSE 5%-WATER - 250 ML IVPB SCH ×2 (10:37→22:02)
[2016-08-16] MEDS: SENNOSIDES 8.6MG TABLET (FP) PO SCH ×2 (10:38→22:02)
[2016-08-16] MEDS: VALSARTAN 160 MG TABLET (UD) PO SCH (10:38)
[2016-08-16] MEDS: amLODIPine BESYLATE 5 MG TABLET (FP) PO SCH (10:38)
[2016-08-16] MEDS: ALPRAZolam 2 MG TABLET PO SCH ×4 (10:38→22:02)
[2016-08-16] MEDS: ASPIRIN 81 MG CHEWABLE TABLETS PO SCH (10:38)
[2016-08-16] MEDS: FUROSEMIDE 20 MG TABLET (FP) PO SCH (10:38)
[2016-08-16] MEDS: cloNIDine HCL 0.1 MG TABLET PO SCH ×2 (10:38→22:00)
[2016-08-16] MEDS: DOCUSATE SODIUM 100 MG CAPSULE (FP) PO SCH ×2 (10:38→22:00)
[2016-08-16] MEDS: LACTOBACILLUS ACIDOPHILUS 1 EACH TAB (FP) PO SCH (10:38)
[2016-08-16] MEDS: HEPARIN NA (PORCINE) 5,000 UNITS/ML 1ML VIAL SQ SCH ×2 (10:39→22:00)
[2016-08-16] MEDS: CALCIUM 500MG/VIT-D 200 UNITS COMBO TABLET (FP) PO SCH (10:40)
[2016-08-16] MEDS: COLLAGENASE CLOSTRIDIUM HIST. 30 GRAMS TUBE TP SCH (10:41)
[2016-08-16] MEDS ORDERED: INSULIN (NOVOLOG) ASPART 100 UNITS/ML 10ML VIAL SQ ONE (12:10)
--- NOTE | 2016-08-16 14:44 | PN ---
Physical Exam: SUBJECTIVE: Patient seen and examined OBJECTIVE: Vital Signs Period Temp Pulse Resp BP Sys/Cross Pulse Ox Last 24 Hr 98.3 F-98.6 F 52-90 17-20 120-159/57-74 99 GENERAL: The patient is awake, alert, and fully oriented, in no acute distress. LUNGS: Breath sounds equal, clear to auscultation bilaterally, no wheezes, no crackles, no accessory muscle use. HEART: Regular rate and rhythm, S1, S2 without murmur, rub or gallop. ABDOMEN: Obese, soft, nontender, nondistended, normoactive bowel sounds. EXTREMITIES: No edema, decreasing erythema of LLE, s/p right BKA, s/p left 5th toe amputation Laboratory Results - last 24 hr 08/15/16 08/15/16 08/16/16 17:01 20:53 05:40 WBC RBC Hgb Hct MCV MCHC RDW Plt Count MPV Neutrophils % Lymphocytes % Monocytes % Metamyelocytes Myelocytes Platelet Estimate Platelet Comment Sodium Potassium Chloride Carbon Dioxide Anion Gap BUN Creatinine POC Glucometer 362 381 357 Random Glucose Calcium 08/16/16 08/16/16 07:15 07:15 WBC 7.4 RBC 3.94 L Hgb 11.1 L Hct 32.9 L MCV 83.3 MCHC 33.9 RDW 14.3 Plt Count 165 MPV 9.2 Neutrophils % 74.0 Lymphocytes % 16.0 D Monocytes % 5.0 Metamyelocytes 2 Myelocytes 4 H Platelet Estimate Adequate Platelet Comment No clumping noted Sodium 136 Potassium 4.1 Chloride 97 L Carbon Dioxide 27 Anion Gap 12 BUN 12 Creatinine 1.0 POC Glucometer Random Glucose 266 H Calcium 8.5 Active Medications Generic Name Dose Route Start Last Admin Trade Name Freq PRN Reason Stop Dose Admin Acetaminophen 650 mg 08/10/16 03:03 08/13/16 01:22 Tylenol - PO 650 mg Q4H PRN Administration FEVER OR PAIN Alprazolam 2 mg 08/10/16 10:00 08/16/16 10:38 Xanax - PO 2 mg QID PRICE Administration Amlodipine Besylate 5 mg 08/10/16 10:00 08/16/16 10:38 Norvasc - PO 5 mg DAILY PRICE Administration Aspirin 81 mg 08/10/16 10:00 08/16/16 10:38 Asa - PO 81 mg DAILY PRICE Administration Atorvastatin Calcium 20 mg 08/10/16 22:00 08/15/16 21:31 Lipitor - PO 20 mg HS PRICE Administration Calcium Carbonate/Cholecalciferol 1 tab 08/12/16 10:00 08/16/16 10:40 Os-Tra 500+D - PO 1 tab DAILY PRICE Administration Clonidine 0.2 mg 08/10/16 10:00 08/16/16 10:38 Catapres - PO 0.2 mg BID PRICE Administration Collagenase 1 applic 08/10/16 10:00 08/16/16 10:41 Santyl - TP 1 applic DAILY PRICE Administration Docusate Sodium 100 mg 08/13/16 22:00 08/16/16 10:38 Colace - PO 100 mg BID PRICE Administration Furosemide 20 mg 08/10/16 10:00 08/16/16 10:38 Lasix - PO 20 mg DAILY PRICE Administration Heparin Sodium (Porcine) 5,000 unit 08/10/16 10:00 08/16/16 10:39 Heparin - SQ 5,000 unit BID PRICE Administration Sodium Chloride 1,000 mls @ 75 mls/hr 08/10/16 03:15 08/16/16 05:23 Normal Saline - IV Not Given ASDIR PRICE Vancomycin HCl 1,250 mg/ 250 mls @ 250 mls/hr 08/10/16 22:00 08/16/16 10:37 Dextrose IVPB 250 mls/hr BID PRICE Administration Protocol Ampicillin Sodium/Sulbactam 100 mls @ 200 mls/hr 08/13/16 21:00 08/16/16 10:37 Sodium 3 gm/ Sodium Chloride IVPB 200 mls/hr Q6H-IV PRICE Administration Insulin Aspart 1 vial 08/14/16 07:00 08/16/16 12:19 Novolog Vial Sliding Scale - SQ Not Given ACHS PRICE Protocol Insulin Detemir 20 units 08/13/16 22:00 08/15/16 21:31 Levemir Vial SQ 20 units HS PRICE Administration Lactobacillus Acidophilus 1 tab 08/14/16 10:00 08/16/16 10:38 Bacid - PO 1 tab DAILY PRICE Administration Methadone HCl 40 mg/ Methadone 70 mg 08/13/16 06:30 08/16/16 06:05 HCl 30 mg PO 70 mg DAILY@0600 PRICE Administration Metoclopramide HCl 10 mg 08/11/16 11:45 08/16/16 12:18 Reglan - PO 10 mg TIDAC PRICE Administration Ondansetron HCl 4 mg 08/10/16 12:01 08/10/16 20:51 Zofran Injection IVPB 4 mg Q4H PRN Administration NAUSEA Oxycodone HCl 30 mg 08/14/16 18:59 08/16/16 08:56 Roxicodone - PO 30 mg Q4H PRN Administration PAIN Senna 1 tab 08/13/16 22:00 08/16/16 10:38 Senna - PO 1 tab BID PRICE Administration Valsartan 160 mg 08/10/16 10:00 08/16/16 10:38 Diovan - PO 160 mg DAILY PRICE Administration ASSESSMENT/PLAN: This is a 51-year-old man with a history of IDDM, HTN, hyperlipidemia, hepatitis C, PTSD, anxiety disorder, chronic pain, substance abuse, neuropathy, endocarditis, MRSA bacteremia, right BKA, left 5th toe amputation, osteomyelitis of LLE and rib, who presented to the ER with abdominal pain, nausea, vomiting, diarrhea, fever and chills. 1. Sepsis secondary to left calcaneus osteomyelitis from diabetic foot ulcer - Continue Unasyn, Vancomycin - Plan for long-term IV antibiotics - Continue wound care - Blood cultures negative - Wound culture growing Acinetobacter, group A Strep, coagulase negative Staph, MRSA 2. Opiate dependence - Continue Methadone maintenance 3. Abdominal pain with nausea and vomiting, possibly secondary to diabetic gastroparesis - Continue Reglan 4. HTN - Continue Norvasc, Diovan, Clonidine, Lasix 5. Type 2 DM, uncontrolled, with neuropathy - Increase Levemir - Continue Novolog sliding scale 6. Chronic pain 7. PTSD and anxiety disorder - Continue Xanax 8. Hyperlipidemia - Continue Lipitor 9. Constipation - Improved with Fleet enema - Continue Senna and Colace Visit type - Emergency Visit Emergency Visit: Yes ED Registration Date: 08/10/16 Care time: The patient presented to the Emergency Department on the above date and was hospitalized for further evaluation of their emergent condition. - New Patient This patient is new to me today: No - Critical Care Critical Care patient: No - Discharge Referral Referred to [facility] No
[2016-08-16] MEDS ORDERED: INSULIN (NOVOLOG) ASPART 100 UNITS/ML 10ML VIAL ONE (21:51)
[2016-08-16] MEDS: INSULIN DETEMIR 100 UNITS/ML MDV SQ SCH (22:00)
[2016-08-16] MEDS: ATORVASTATIN CA 20 MG TABLET (FP) PO SCH (22:01)
[2016-08-17] MEDS: AMPICILLIN NA/SULBACTAM NA 3 GM in SODIUM CHLORIDE 100 ML IVPB SCH ×4 (02:14→22:07)
[2016-08-17] MEDS: oxyCODONE HCL 5 MG TABLET PO PRN ×4 (03:36→20:25)
[2016-08-17] MEDS: SODIUM CHLORIDE 1,000 ML IV SCH ×2 (05:54→17:30)
[2016-08-17] MEDS ORDERED: METHADONE HCL 10 MG TABLET ONE (06:03)
[2016-08-17] MEDS ORDERED: METHADONE HCL 40 MG DISPERSABLE TABLET ONE (06:03)
[2016-08-17] MEDS: METHADONE 40 MG, METHADONE 30 MG PO SCH (06:06)
[2016-08-17] MEDS: INSULIN SLIDING SCALE (NOVOLOG) 1 VIAL SQ SCH ×5 (06:07→22:30)
[2016-08-17] MEDS: METOCLOPRAMIDE HCL 10 MG TABLET (FP) PO SCH ×3 (06:07→17:25)
[2016-08-17] MEDS ORDERED: Insulin (LOG) Aspart 100 UNITS/ML VIAL SQ ONE (06:11)
[2016-08-17] MEDS ORDERED: INSULIN (NOVOLOG) ASPART 100 UNITS/ML 10ML VIAL ONE ×3 (07:35→18:38)
[2016-08-17] MEDS: HEPARIN NA (PORCINE) 5,000 UNITS/ML 1ML VIAL SQ SCH ×3 (09:49→22:09)
[2016-08-17] MEDS: DOCUSATE SODIUM 100 MG CAPSULE (FP) PO SCH ×2 (09:49→22:09)
[2016-08-17] MEDS: VANCOMYCIN 1,250 MG in DEXTROSE 5%-WATER - 250 ML IVPB SCH ×2 (09:49→22:12)
[2016-08-17] MEDS: ALPRAZolam 2 MG TABLET PO SCH ×4 (09:50→22:13)
[2016-08-17] MEDS: ASPIRIN 81 MG CHEWABLE TABLETS PO SCH (09:51)
[2016-08-17] MEDS: amLODIPine BESYLATE 5 MG TABLET (FP) PO SCH (09:51)
[2016-08-17] MEDS: SENNOSIDES 8.6MG TABLET (FP) PO SCH ×2 (09:51→22:12)
[2016-08-17] MEDS: cloNIDine HCL 0.1 MG TABLET PO SCH ×2 (09:51→22:08)
[2016-08-17] MEDS: LACTOBACILLUS ACIDOPHILUS 1 EACH TAB (FP) PO SCH (09:51)
[2016-08-17] MEDS: VALSARTAN 160 MG TABLET (UD) PO SCH (09:52)
[2016-08-17] MEDS: CALCIUM 500MG/VIT-D 200 UNITS COMBO TABLET (FP) PO SCH (09:52)
[2016-08-17] MEDS: FUROSEMIDE 20 MG TABLET (FP) PO SCH (09:52)
[2016-08-17] MEDS: COLLAGENASE CLOSTRIDIUM HIST. 30 GRAMS TUBE TP SCH (09:53)
--- NOTE | 2016-08-17 14:09 | PN ---
Teaching Attending Note Name of Resident: Mars Terry ATTENDING PHYSICIAN STATEMENT I saw and evaluated the patient. I reviewed the resident's note and discussed the case with the resident. I agree with the resident's findings and plan as documented. SUBJECTIVE: Patient complains of left foot pain. OBJECTIVE: Vital Signs Period Temp Pulse Resp BP Sys/Cross Pulse Ox Last 24 Hr 98.1 F-98.4 F 52-95 18-20 143-160/62-70 92 GENERAL: The patient is awake, alert, and fully oriented, in no acute distress. LUNGS: Breath sounds equal, clear to auscultation bilaterally, no wheezes, no crackles, no accessory muscle use. HEART: Regular rate and rhythm, S1, S2 without murmur, rub or gallop. ABDOMEN: Obese, soft, nontender, nondistended, normoactive bowel sounds. EXTREMITIES: No edema, decreased erythema of LLE, s/p right BKA, s/p left 5th toe amputation ASSESSMENT AND PLAN: This is a 51-year-old man with a history of IDDM, HTN, hyperlipidemia, hepatitis C, PTSD, anxiety disorder, chronic pain, substance abuse, neuropathy, endocarditis, MRSA bacteremia, right BKA, left 5th toe amputation, osteomyelitis of LLE and rib, who presented to the ER with abdominal pain, nausea, vomiting, diarrhea, fever and chills. 1. Sepsis secondary to left calcaneus osteomyelitis from diabetic foot ulcer - Continue Unasyn, Vancomycin - Plan for long-term IV antibiotics - Continue wound care - Blood cultures negative - Wound culture growing Acinetobacter, group A Strep, coagulase negative Staph, MRSA 2. Opiate dependence - Continue Methadone maintenance 3. Abdominal pain with nausea and vomiting, possibly secondary to diabetic gastroparesis - Continue Reglan 4. HTN - Continue Norvasc, Diovan, Clonidine, Lasix 5. Type 2 DM, uncontrolled, with neuropathy - Increase Levemir - Continue Novolog sliding scale 6. Chronic pain 7. PTSD and anxiety disorder - Continue Xanax 8. Hyperlipidemia - Continue Lipitor 9. Constipation - Improved with Fleet enema - Continue Senna and Colace 10. Disposition - Will need subacute rehab for long-term IV antibiotics and can be discharged once arrangements have been made
[2016-08-17] MEDS ORDERED: PT OWN MED DRAWER 7, Y5N ONE ×2 (18:37→21:05)
[2016-08-17] MEDS: ACETAMINOPHEN 325 MG TABLET (FP) PO PRN (20:20)
--- NOTE | 2016-08-17 21:45 | PN ---
Physical Exam: SUBJECTIVE: Patient seen and examined at bedside. He stated that the abd pain has resolved after a large bowel movement but his foot pain still bothers him. Denies fever, chills, sob, chest pain, n/v. OBJECTIVE: Vital Signs Period Temp Pulse Resp BP Sys/Cross Pulse Ox Last 24 Hr 98.1 F-98.4 F 51-95 20-20 118-160/63-70 92 GENERAL: AAO x 3, cooperative, able to speak in full sentences EYES: L eye removed. R eye PERRLA EARS, NOSE, THROAT: Moist mucous membranes. LUNGS: CTAB HEART: RRR, S1 S2 present, no murmur ABDOMEN: + bowel sounds, tenderness in all quadrants, no guarding LOWER EXTREMITIES: RLE s/p BKA. LLE much less erythematous (redness retreated ~> 10 cm from drawn margin yesterday), and still warm, skin sloughing and scaling, 5th metatarsal amputated, L plantar foot ulcer dressing in place NEUROLOGICAL: Cranial nerves II-XII grossly intact SKIN: Warm, dry Laboratory Results - last 24 hr 08/16/16 08/17/16 08/17/16 12:02 05:42 12:06 POC Glucometer 404 431 376 08/17/16 17:19 POC Glucometer 398 Active Medications Generic Name Dose Route Start Last Admin Trade Name Freq PRN Reason Stop Dose Admin Acetaminophen 650 mg 08/10/16 03:03 08/17/16 20:20 Tylenol - PO 650 mg Q4H PRN Administration FEVER OR PAIN Alprazolam 2 mg 08/17/16 14:00 08/17/16 17:25 Xanax - PO 08/18/16 13:59 2 mg QID PRICE Administration Amlodipine Besylate 5 mg 08/10/16 10:00 08/17/16 09:51 Norvasc - PO 5 mg DAILY PRICE Administration Aspirin 81 mg 08/10/16 10:00 08/17/16 09:51 Asa - PO 81 mg DAILY PRICE Administration Atorvastatin Calcium 20 mg 08/10/16 22:00 08/16/16 22:01 Lipitor - PO 20 mg HS PRICE Administration Calcium Carbonate/Cholecalciferol 1 tab 08/12/16 10:00 08/17/16 09:52 Os-Tra 500+D - PO 1 tab DAILY PRICE Administration Clonidine 0.2 mg 08/10/16 10:00 08/17/16 09:51 Catapres - PO 0.2 mg BID PRICE Administration Collagenase 1 applic 08/10/16 10:00 08/17/16 09:53 Santyl - TP 1 applic DAILY PRICE Administration Docusate Sodium 100 mg 08/13/16 22:00 08/17/16 09:49 Colace - PO 100 mg BID PRICE Administration Furosemide 20 mg 08/10/16 10:00 08/17/16 09:52 Lasix - PO 20 mg DAILY PRICE Administration Heparin Sodium (Porcine) 5,000 unit 08/17/16 14:00 08/17/16 15:03 Heparin - SQ 5,000 unit TID PRICE Administration Sodium Chloride 1,000 mls @ 75 mls/hr 08/10/16 03:15 08/17/16 17:30 Normal Saline - IV 75 mls/hr ASDIR PRICE Administration Vancomycin HCl 1,250 mg/ 250 mls @ 250 mls/hr 08/10/16 22:00 08/17/16 09:49 Dextrose IVPB 250 mls/hr BID PRICE Administration Protocol Ampicillin Sodium/Sulbactam 100 mls @ 200 mls/hr 08/13/16 21:00 08/17/16 15:03 Sodium 3 gm/ Sodium Chloride IVPB 200 mls/hr Q6H-IV PRICE Administration Vancomycin HCl 1,250 mg/ 250 mls @ 250 mls/hr 08/18/16 10:00 Dextrose IVPB BID PRICE Protocol Insulin Aspart 1 vial 08/14/16 07:00 08/17/16 17:24 Novolog Vial Sliding Scale - SQ 10 units ACHS PRICE Administration Protocol Insulin Detemir 25 units 08/16/16 22:00 08/16/16 22:00 Levemir Vial SQ 25 units HS PRICE Administration Lactobacillus Acidophilus 1 tab 08/14/16 10:00 08/17/16 09:51 Bacid - PO 1 tab DAILY PRICE Administration Methadone HCl 40 mg/ Methadone 70 mg 08/13/16 06:30 08/17/16 06:06 HCl 30 mg PO 70 mg DAILY@0600 PRICE Administration Metoclopramide HCl 10 mg 08/11/16 11:45 08/17/16 17:25 Reglan - PO 10 mg TIDAC PRICE Administration Ondansetron HCl 4 mg 08/10/16 12:01 08/10/16 20:51 Zofran Injection IVPB 4 mg Q4H PRN Administration NAUSEA Oxycodone HCl 30 mg 08/14/16 18:59 08/17/16 20:25 Roxicodone - PO 30 mg Q4H PRN Administration PAIN Senna 1 tab 08/13/16 22:00 08/17/16 09:51 Senna - PO 1 tab BID PRICE Administration Valsartan 160 mg 08/10/16 10:00 08/17/16 09:52 Diovan - PO 160 mg DAILY PRICE Administration Imaging MRI of L foot: anterior calcaneus osteomyelitis U/S abd on 08/10: Hepatomegaly with diffuse fatty infiltration of the liver X-ray of LLE on 08/10: Soft tissue air/ulceration in the plantar soft tissues of the hindfoot is again noted. Deformities of the calcaneus and talus are unchanged in appearance. Partial amputation of the fifth ray is again noted. There is a linear metallic density measuring about 3 mm in size over the lateral forefoot seen on the oblique view of the foot raising possibility of foreign body, however more likely reflecting artifact as it is only seen on one view. No definite radiographic evidence of osteomyelitis is seen CXR on 08/10: No acute pathology. No significant change ASSESSMENT/PLAN: 51 yo M admitted to the med-surg with sepsis 2/2 cellulitis. ID: non-purulent cellulitis of LLE in the setting of osteomyelitis - Improving - Afrebile with normal WBC - On unasyn day 5, vanco day 8 - Awaiting fdc placement GI: RUQ and RLQ pain - Resolved - 2/2 Diabetic gastroparesis - Cont. reglan, senna and colace Psy: substance abuse on methadone; PTSD and anxiety - Cont. methadone 70mg daily - Cont. alprazonam 2mg QID Cardiac: HLD - Cont. lipitor 20mg HS - Cont. ASA 81mg daily Renal: HTN - Cont. norvasc 5mg, clonidine 0.2mg BID, lasix 20mg daily, diovan 160mg daily Endocrine: IDDM - Increased levemir to 25 units HS - Cont. Sliding scale FEN - NS 75ml/hr - Cont. to monitor lytes and Cr - Diabetic diet with low Na+ Prophylaxis - DVT: heparin SQ - GI: not indicated Disposition - Patient agreed to fdc placement - Awaiting fdc acceptance - Can continue abx treatment and do methadone delivery to accepting fdc Code status - Full code Visit type - Emergency Visit Emergency Visit: No - New Patient This patient is new to me today: No - Critical Care Critical Care patient: No
[2016-08-17] MEDS: INSULIN DETEMIR 100 UNITS/ML MDV SQ SCH (22:11)
[2016-08-17] MEDS: ATORVASTATIN CA 20 MG TABLET (FP) PO SCH (22:12)
[2016-08-17] MEDS ORDERED: INSULIN DETEMIR 100 UNITS/ML MDV SQ ONE (22:23)
[2016-08-18] MEDS: oxyCODONE HCL 5 MG TABLET PO PRN ×5 (00:27→21:25)
[2016-08-18] MEDS ORDERED: PT OWN MED DRAWER 7, Y5N ONE ×4 (02:15→20:30)
[2016-08-18] MEDS: AMPICILLIN NA/SULBACTAM NA 3 GM in SODIUM CHLORIDE 100 ML IVPB SCH ×4 (02:25→21:22)
[2016-08-18] MEDS: INSULIN SLIDING SCALE (NOVOLOG) 1 VIAL SQ SCH ×5 (02:33→21:29)
[2016-08-18] MEDS: SODIUM CHLORIDE 1,000 ML IV SCH (02:34)
[2016-08-18] MEDS ORDERED: METHADONE HCL 40 MG DISPERSABLE TABLET ONE (05:53)
[2016-08-18] MEDS ORDERED: METHADONE HCL 10 MG TABLET ONE (05:53)
[2016-08-18] MEDS: METHADONE 40 MG, METHADONE 30 MG PO SCH (06:00)
[2016-08-18] MEDS: HEPARIN NA (PORCINE) 5,000 UNITS/ML 1ML VIAL SQ SCH ×3 (06:02→21:23)
[2016-08-18] MEDS: METOCLOPRAMIDE HCL 10 MG TABLET (FP) PO SCH ×3 (06:04→16:44)
[2016-08-18] MEDS: VANCOMYCIN 1,250 MG in DEXTROSE 5%-WATER - 250 ML IVPB SCH ×2 (09:52→23:08)
[2016-08-18] MEDS: VALSARTAN 160 MG TABLET (UD) PO SCH (09:54)
[2016-08-18] MEDS: FUROSEMIDE 20 MG TABLET (FP) PO SCH (09:54)
[2016-08-18] MEDS: ASPIRIN 81 MG CHEWABLE TABLETS PO SCH (09:54)
[2016-08-18] MEDS: ALPRAZolam 2 MG TABLET PO SCH ×4 (09:54→21:25)
[2016-08-18] MEDS: SENNOSIDES 8.6MG TABLET (FP) PO SCH ×2 (09:54→21:25)
[2016-08-18] MEDS: LACTOBACILLUS ACIDOPHILUS 1 EACH TAB (FP) PO SCH (09:54)
[2016-08-18] MEDS: cloNIDine HCL 0.1 MG TABLET PO SCH ×2 (09:54→21:22)
[2016-08-18] MEDS: DOCUSATE SODIUM 100 MG CAPSULE (FP) PO SCH ×2 (09:54→21:23)
[2016-08-18] MEDS: amLODIPine BESYLATE 5 MG TABLET (FP) PO SCH (09:54)
[2016-08-18] MEDS: COLLAGENASE CLOSTRIDIUM HIST. 30 GRAMS TUBE TP SCH (09:55)
[2016-08-18] MEDS: CALCIUM 500MG/VIT-D 200 UNITS COMBO TABLET (FP) PO SCH (09:55)
[2016-08-18] MEDS ORDERED: INSULIN (NOVOLOG) ASPART 100 UNITS/ML 10ML VIAL ONE (11:33)
--- NOTE | 2016-08-18 12:48 | PN ---
Progress Note (short form) - Note Progress Note: pain in the leg improving Vital Signs Period Temp Pulse Resp BP Sys/Cross Pulse Ox Last 24 Hr 97.8 F-98.7 F 50-55 18-22 93-140/50-65 93-95 cor-rrr lungs clear abd soft,nt ext- less erythema, less edema, less pain to palpation dressing just changed by RN CBC, BMP 08/16/16 07:15 08/16/16 07:15 Microbiology 08/10/16 01:00 Blood - Peripheral Venous Blood Culture - Final NO GROWTH AFTER 5 DAYS INCUBATION 08/10/16 01:00 Blood - Peripheral Venous Blood Culture - Final NO GROWTH AFTER 5 DAYS INCUBATION 08/10/16 01:00 Nasopharyngeal Swab Respiratory Virus Panel - Final 08/10/16 03:10 Foot - Left Sole Gram Stain - Final 08/10/16 03:10 Foot - Left Sole Wound Culture - Final Acinetobacter Baumannii/Haemol Mr S Aureus Beta Hemolytic Streptococcus A Staphylococcus Coagulase Neg 08/10/16 08:41 Urine - Urine Clean Catch Urine Culture - Final NO GROWTH OBTAINED 08/10/16 01:00 Nasopharyngeal Swab Influenza Types A,B Antigen (NORA) - Final 08/10/16 01:00 Nasopharyngeal Swab - Final a/p calcaneal osteomyelitis cellulitis- diabetes remote history of substance use f/u cultures f/u with podiatry continue vancomycin continue unasyn vancomycin trough level ordered esr/crp ordered should have weekly labs while on iv antibiotics - cbc/cmp/esr/crp/vancomycin trough plain 6 weeks total antibiotics Problem List - Problems (1) Cellulitis of left leg Code(s): L03.116 - CELLULITIS OF LEFT LOWER LIMB (2) Chronic foot ulcer Code(s): L97.509 - NON-PRESSURE CHRONIC ULCER OTH PRT UNSP FOOT W UNSP SEVERITY (3) Diabetes mellitus Code(s): E11.9 - TYPE 2 DIABETES MELLITUS WITHOUT COMPLICATIONS
[2016-08-18] MEDS ORDERED: SODIUM PHOSPHATE/NA BIPHOS 133 ML ENEMA PR ONE (13:00)
--- NOTE | 2016-08-18 13:46 | PN ---
Teaching Attending Note Name of Resident: Mars Terry ATTENDING PHYSICIAN STATEMENT I saw and evaluated the patient. I reviewed the resident's note and discussed the case with the resident. I agree with the resident's findings and plan as documented. SUBJECTIVE:states pain in foot has improved. no BM in 3 days. denies CP, SOB, fever, chills, N/V/D, tolerating diet OBJECTIVE: Last Vital Signs Temp Pulse Resp BP Pulse Ox 98.7 F 52 L 20 93/61 93 L 08/18/16 09:00 08/18/16 09:00 08/18/16 09:00 08/18/16 09:00 08/18/16 10:00 General NAD CV S1 S2 RRR no murmur/rub/gallop Lungs CTA B/L no wheezing/rales/rhonchi Extremities LLE with chronic venous changes. no erythema or edema. ASSESSMENT AND PLAN: 51yo M with complicated medical history presented to the ER and was admitted for further evaluation of their emergent condition 1. 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 medical management for now. Wcx polymicrobial. on Unasyn/Vanco day 22. will need 6 weeks total. will need close monitoring with podiatry and ID. 2. Constipation- likely opiate induced. requesting fleet enema. if does not work will give relistor 3. DM- uncontrolled. as per pt is on novolog 70/30 60units BID. will re-start home regimen. monitor sugars closely. hold tonights dose of levemir (takess 20units QHS). titrate to optimize control 4. Chronic methadone dependence- on methadone 70mg. dose confirmed 5. Abdominal pain- due to gastroparesis. now resolved. cont reglan 6. DVT ppx- hep sq 7. awaiting SNF placement for prison abx. awaiting on availability as pt is chronic methdone user and most facilities are not authorized to give out. SW/CM working on issue. will need PICC line
--- NOTE | 2016-08-18 16:24 | PN ---
Physical Exam: SUBJECTIVE: Patient seen and examined at bedside. His foot pain still persists and he still feels constipated and asking fleet enema. Denies fever, chills, sob, chest pain , n/v. OBJECTIVE: Vital Signs Period Temp Pulse Resp BP Sys/Cross Pulse Ox Last 24 Hr 97.8 F-98.7 F 50-55 18-22 93-139/50-65 93-95 GENERAL: AAO x 3, cooperative, able to speak in full sentences EYES: L eye removed. R eye PERRLA EARS, NOSE, THROAT: Moist mucous membranes. LUNGS: CTAB HEART: RRR, S1 S2 present, no murmur ABDOMEN: + bowel sounds, tenderness in all quadrants, no guarding LOWER EXTREMITIES: RLE s/p BKA. LLE much less erythematous (redness retreated ~> 10 cm from drawn margin yesterday), and still warm, skin sloughing and scaling, 5th metatarsal amputated, L plantar foot ulcer dressing in place NEUROLOGICAL: Cranial nerves II-XII grossly intact SKIN: Warm, dry Laboratory Results - last 24 hr 08/17/16 08/17/16 08/18/16 17:19 22:14 02:32 POC Glucometer 398 409 361 08/18/16 08/18/16 05:59 11:56 POC Glucometer 310 249 Active Medications Generic Name Dose Route Start Last Admin Trade Name Freq PRN Reason Stop Dose Admin Acetaminophen 650 mg 08/10/16 03:03 08/17/16 20:20 Tylenol - PO 650 mg Q4H PRN Administration FEVER OR PAIN Alprazolam 2 mg 08/18/16 15:00 08/18/16 14:54 Xanax - PO 2 mg QID PRICE Administration Amlodipine Besylate 5 mg 08/10/16 10:00 08/18/16 09:54 Norvasc - PO 5 mg DAILY PRICE Administration Aspirin 81 mg 08/10/16 10:00 08/18/16 09:54 Asa - PO 81 mg DAILY PRICE Administration Atorvastatin Calcium 20 mg 08/10/16 22:00 08/17/16 22:12 Lipitor - PO 20 mg HS PRICE Administration Calcium Carbonate/Cholecalciferol 1 tab 08/12/16 10:00 08/18/16 09:55 Os-Tra 500+D - PO 1 tab DAILY PRICE Administration Clonidine 0.2 mg 08/10/16 10:00 08/18/16 09:54 Catapres - PO 0.2 mg BID PRICE Administration Collagenase 1 applic 08/10/16 10:00 08/18/16 09:55 Santyl - TP 1 applic DAILY PRICE Administration Docusate Sodium 100 mg 08/13/16 22:00 08/18/16 09:54 Colace - PO 100 mg BID PRICE Administration Furosemide 20 mg 08/10/16 10:00 08/18/16 09:54 Lasix - PO 20 mg DAILY PRICE Administration Heparin Sodium (Porcine) 5,000 unit 08/17/16 14:00 08/18/16 14:06 Heparin - SQ 5,000 unit TID PRICE Administration Ampicillin Sodium/Sulbactam 100 mls @ 200 mls/hr 08/13/16 21:00 08/18/16 14:06 Sodium 3 gm/ Sodium Chloride IVPB 200 mls/hr Q6H-IV PRICE Administration Vancomycin HCl 1,250 mg/ 250 mls @ 250 mls/hr 08/18/16 10:00 08/18/16 09:52 Dextrose IVPB 250 mls/hr BID PRICE Administration Protocol Insulin Aspart 1 vial 08/18/16 11:00 08/18/16 11:56 Novolog Vial Sliding Scale - SQ 5 units ACHS PRICE Administration Protocol Insulin Aspart 60 units 08/18/16 16:30 Novolog Mix 70/30 Vial SQ BIDAC PRICE Lactobacillus Acidophilus 1 tab 08/14/16 10:00 08/18/16 09:54 Bacid - PO 1 tab DAILY PRICE Administration Methadone HCl 40 mg/ Methadone 70 mg 08/13/16 06:30 08/18/16 06:00 HCl 30 mg PO 70 mg DAILY@0600 PRICE Administration Metoclopramide HCl 10 mg 08/11/16 11:45 08/18/16 10:38 Reglan - PO 10 mg TIDAC PRICE Administration Ondansetron HCl 4 mg 08/10/16 12:01 08/10/16 20:51 Zofran Injection IVPB 4 mg Q4H PRN Administration NAUSEA Oxycodone HCl 30 mg 08/14/16 18:59 08/18/16 10:38 Roxicodone - PO 30 mg Q4H PRN Administration PAIN Senna 1 tab 08/13/16 22:00 08/18/16 09:54 Senna - PO 1 tab BID PRICE Administration Valsartan 160 mg 08/10/16 10:00 08/18/16 09:54 Diovan - PO 160 mg DAILY PRICE Administration Imaging MRI of L foot: anterior calcaneus osteomyelitis U/S abd on 08/10: Hepatomegaly with diffuse fatty infiltration of the liver X-ray of LLE on 08/10: Soft tissue air/ulceration in the plantar soft tissues of the hindfoot is again noted. Deformities of the calcaneus and talus are unchanged in appearance. Partial amputation of the fifth ray is again noted. There is a linear metallic density measuring about 3 mm in size over the lateral forefoot seen on the oblique view of the foot raising possibility of foreign body, however more likely reflecting artifact as it is only seen on one view. No definite radiographic evidence of osteomyelitis is seen CXR on 08/10: No acute pathology. No significant change ASSESSMENT/PLAN: 51 yo M admitted to the med-surg with sepsis 2/2 cellulitis. ID: non-purulent cellulitis of LLE in the setting of osteomyelitis - Improving - Afrebile with normal WBC - On unasyn day 6, vanco day 9 * will cont. current regiment as outpatient for 5 more weeks * weekly ESR, CRP and vanco trough - Awaiting snf placement GI: RUQ and RLQ pain - Resolved - 2/2 Diabetic gastroparesis - Cont. reglan, senna, fleet enema and colace Psy: substance abuse on methadone; PTSD and anxiety - Cont. methadone 70mg daily - Cont. alprazonam 2mg QID Cardiac: HLD - Cont. lipitor 20mg HS - Cont. ASA 81mg daily Renal: HTN - Cont. norvasc 5mg, clonidine 0.2mg BID, lasix 20mg daily, diovan 160mg daily Endocrine: IDDM - Start home regiment: novolog 70/30 60 units BID - Cont. Sliding scale FEN - No IVF - Monitor lytes as needed - Diabetic diet with low Na+ Prophylaxis - DVT: heparin SQ - GI: not indicated Disposition - Patient agreed to snf placement - Awaiting snf acceptance - Can continue abx treatment and do methadone delivery to accepting snf Code status - Full code Visit type - Emergency Visit Emergency Visit: No - New Patient This patient is new to me today: No - Critical Care Critical Care patient: No
[2016-08-18] MEDS: INSULIN (NOVOLOG MIX 70/30) 100 UNITS/ML MDV SQ SCH (16:41)
[2016-08-18] MEDS: ATORVASTATIN CA 20 MG TABLET (FP) PO SCH (21:24)
[2016-08-19] MEDS ORDERED: PT OWN MED DRAWER 7, Y5N ONE ×2 (02:04→21:25)
[2016-08-19] MEDS: oxyCODONE HCL 5 MG TABLET PO PRN ×5 (02:10→22:20)
[2016-08-19] MEDS: AMPICILLIN NA/SULBACTAM NA 3 GM in SODIUM CHLORIDE 100 ML IVPB SCH ×5 (02:10→23:50)
[2016-08-19] MEDS ORDERED: METHADONE HCL 40 MG DISPERSABLE TABLET ONE (06:04)
[2016-08-19] MEDS ORDERED: METHADONE HCL 10 MG TABLET ONE (06:05)
[2016-08-19] MEDS: METHADONE 40 MG, METHADONE 30 MG PO SCH (06:41)
[2016-08-19] MEDS: INSULIN (NOVOLOG MIX 70/30) 100 UNITS/ML MDV SQ SCH ×2 (06:44→17:14)
[2016-08-19] MEDS: HEPARIN NA (PORCINE) 5,000 UNITS/ML 1ML VIAL SQ SCH ×3 (06:44→21:45)
[2016-08-19] MEDS: INSULIN SLIDING SCALE (NOVOLOG) 1 VIAL SQ SCH ×4 (06:45→21:58)
[2016-08-19] MEDS: METOCLOPRAMIDE HCL 10 MG TABLET (FP) PO SCH ×3 (06:47→17:14)
[2016-08-19] MEDS ORDERED: INSULIN DETEMIR 100 UNITS/ML MDV SQ ONE ×3 (07:45→19:55)
[2016-08-19 09:04] LABS: ALK PHOS 177 U/L (45-117); ANION GAP 10 (8-16); BILIRUBIN,TOTAL 0.3 mg/dL (0.2-1.0); CALCIUM 8.7 mg/dL (8.5-10.1); CO2 27 mmol/L (21-32); COCKROFT - GAULT 131.03; CREATININE 1.1 mg/dL (0.7-1.3); GLUCOSE,RANDOM 276 mg/dL (74-106); SGOT/AST 31 U/L (15-37); SGPT/ALT 50 U/L (12-78); TOT PROT 7.2 g/dl (6.4-8.2)
[2016-08-19 09:08] LABS: C-REACTIVE PROTEIN 1.9 MG/DL (0.00-0.3)
[2016-08-19] MEDS: FUROSEMIDE 20 MG TABLET (FP) PO SCH (10:36)
[2016-08-19] MEDS: ASPIRIN 81 MG CHEWABLE TABLETS PO SCH (10:36)
[2016-08-19] MEDS: DOCUSATE SODIUM 100 MG CAPSULE (FP) PO SCH ×2 (10:36→21:43)
[2016-08-19] MEDS: LACTOBACILLUS ACIDOPHILUS 1 EACH TAB (FP) PO SCH (10:36)
[2016-08-19] MEDS: ALPRAZolam 2 MG TABLET PO SCH ×4 (10:37→21:42)
[2016-08-19] MEDS: CALCIUM 500MG/VIT-D 200 UNITS COMBO TABLET (FP) PO SCH (10:38)
[2016-08-19] MEDS: SENNOSIDES 8.6MG TABLET (FP) PO SCH ×2 (10:38→21:43)
--- NOTE | 2016-08-19 11:29 | PN ---
Progress Note (short form) - Note Progress Note: pain in the leg unchanged Vital Signs Period Temp Pulse Resp BP Sys/Cross Pulse Ox Last 24 Hr 97.9 F-98.6 F 48-56 18-22 118-160/48-81 96 cor-rrr lungs clear abd soft,nt ext less erythema and induration of the leg ulcer on sole of foot is clean, no erythema, some brown d/c on gauze CBC, BMP 08/16/16 07:15 08/19/16 08:05 Laboratory Tests 08/10/16 08/12/16 08/13/16 09:20 06:15 09:30 C-Reactive Protein 8.3 H 13.7 H D Vancomycin Trough 14.106 H 08/18/16 08/19/16 21:15 08:05 C-Reactive Protein 1.9 H D Vancomycin Trough 18.258 H* D a/p calcaneal osteomyelitis cellulitis- improving diabetes remote history of substance use day #10 antibiotics decrease vancomycin to 1 gram q12h continue unasyn should have weekly labs while on iv antibiotics - cbc/cmp/esr/crp/vancomycin trough plain 6 weeks total antibiotics Problem List - Problems (1) Cellulitis of left leg Code(s): L03.116 - CELLULITIS OF LEFT LOWER LIMB (2) Chronic foot ulcer Code(s): L97.509 - NON-PRESSURE CHRONIC ULCER OTH PRT UNSP FOOT W UNSP SEVERITY (3) Diabetes mellitus Code(s): E11.9 - TYPE 2 DIABETES MELLITUS WITHOUT COMPLICATIONS
[2016-08-19] MEDS: cloNIDine HCL 0.1 MG TABLET PO SCH ×2 (12:39→21:43)
[2016-08-19] MEDS: amLODIPine BESYLATE 5 MG TABLET (FP) PO SCH (12:40)
[2016-08-19] MEDS: VALSARTAN 160 MG TABLET (UD) PO SCH (12:40)
[2016-08-19] MEDS: VANCOMYCIN 1 GRAM (PRE-DOCKED) 1,000 MG/250 ML BAG IVPB SCH ×2 (12:56→23:53)
[2016-08-19] MEDS: VANCOMYCIN 1,250 MG in DEXTROSE 5%-WATER - 250 ML IVPB SCH (13:17)
--- NOTE | 2016-08-19 16:10 | PN ---
Teaching Attending Note Name of Resident: Mars Terry ATTENDING PHYSICIAN STATEMENT I saw and evaluated the patient. I reviewed the resident's note and discussed the case with the resident. I agree with the resident's findings and plan as documented. SUBJECTIVE:continues to have LLE pain. denies Cp, SOB,fever, chills, N/V/C/D OBJECTIVE: Last Vital Signs Temp Pulse Resp BP Pulse Ox 98.3 F 54 L 18 104/54 96 08/19/16 13:35 08/19/16 13:35 08/19/16 13:35 08/19/16 13:35 08/18/16 21:00 General NAD CV S1 S2 RRR no murmur/rub/gallop Lungs CTA B/L no wheezing/rales/rhonchi Extremities LLE with chronic venous changes. no erythema or edema. tender on palpation ASSESSMENT AND PLAN: 51yo M with complicated medical history presented to the ER and was admitted for further evaluation of their emergent condition 1. 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 medical management for now. Wcx polymicrobial. on Unasyn/Vanco day 23. will need 6 weeks total. will need close monitoring with podiatry and ID. 2. Constipation- multiple BM last night. monitor for BM daily 3. DM- uncontrolled. re-started on novolin 70/30 60 units BID. elevated this AM and given lantus 10 units this AM. monitor sugars closely. titrate medications to optimize control 4. HTN- this AM was hypotensive and medications held. will closely monitor. slowly restart medications. hold for SBP <100 5. Chronic methadone dependence- on methadone 70mg. dose confirmed 6. Abdominal pain- due to gastroparesis. now resolved. cont reglan 7. DVT ppx- hep sq 8. awaiting SNF placement for halfway abx. awaiting on availability as pt is chronic methdone user and most facilities are not authorized to give out. SW/CM working on issue. will need PICC line
[2016-08-19] MEDS: COLLAGENASE CLOSTRIDIUM HIST. 30 GRAMS TUBE TP SCH (16:59)
--- NOTE | 2016-08-19 17:40 | PN ---
Physical Exam: SUBJECTIVE: Patient seen and examined at bedside. Last night, He had a large bowel movement after fleet enema and felt much better. Denies fever, chills, sob, chest pain, n/v. OBJECTIVE: Vital Signs Period Temp Pulse Resp BP Sys/Cross Pulse Ox Last 24 Hr 98.1 F-98.6 F 48-60 18-22 92-160/48-74 96 GENERAL: AAO x 3, cooperative, able to speak in full sentences EYES: L eye removed. R eye PERRLA EARS, NOSE, THROAT: Moist mucous membranes. LUNGS: CTAB HEART: RRR, S1 S2 present, no murmur ABDOMEN: + bowel sounds, tenderness in all quadrants, no guarding LOWER EXTREMITIES: RLE s/p BKA. LLE much less erythematous, and still warm, skin sloughing and scaling, 5th metatarsal amputated, L plantar foot ulcer dressing in place NEUROLOGICAL: Cranial nerves II-XII grossly intact SKIN: Warm, dry Laboratory Results - last 24 hr 08/18/16 08/18/16 08/19/16 21:15 21:28 06:40 ESR Sodium Potassium Chloride Carbon Dioxide Anion Gap BUN Creatinine Creat Clearance w eGFR POC Glucometer 390 370 Random Glucose Calcium Total Bilirubin AST ALT Alkaline Phosphatase C-Reactive Protein Total Protein Albumin Vancomycin Trough 18.258 H* D 08/19/16 08/19/16 08/19/16 08:05 08:05 11:45 ESR 84 H Sodium 135 L Potassium 3.9 Chloride 98 Carbon Dioxide 27 Anion Gap 10 BUN 19 H D Creatinine 1.1 Creat Clearance w eGFR > 60 POC Glucometer 153 Random Glucose 276 H Calcium 8.7 Total Bilirubin 0.3 D AST 31 D ALT 50 D Alkaline Phosphatase 177 H D C-Reactive Protein 1.9 H D Total Protein 7.2 Albumin 3.0 L Vancomycin Trough 08/19/16 16:48 ESR Sodium Potassium Chloride Carbon Dioxide Anion Gap BUN Creatinine Creat Clearance w eGFR POC Glucometer 143 Random Glucose Calcium Total Bilirubin AST ALT Alkaline Phosphatase C-Reactive Protein Total Protein Albumin Vancomycin Trough Active Medications Generic Name Dose Route Start Last Admin Trade Name Freq PRN Reason Stop Dose Admin Acetaminophen 650 mg 08/10/16 03:03 08/17/16 20:20 Tylenol - PO 650 mg Q4H PRN Administration FEVER OR PAIN Alprazolam 2 mg 08/18/16 15:00 08/19/16 17:14 Xanax - PO 2 mg QID PRICE Administration Amlodipine Besylate 5 mg 08/10/16 10:00 08/19/16 12:40 Norvasc - PO Not Given DAILY PRICE Aspirin 81 mg 08/10/16 10:00 08/19/16 10:36 Asa - PO 81 mg DAILY PRICE Administration Atorvastatin Calcium 20 mg 08/10/16 22:00 08/18/16 21:24 Lipitor - PO 20 mg HS PRICE Administration Calcium Carbonate/Cholecalciferol 1 tab 08/12/16 10:00 08/19/16 10:38 Os-Rta 500+D - PO 1 tab DAILY PRICE Administration Clonidine 0.2 mg 08/10/16 10:00 08/19/16 12:39 Catapres - PO Not Given BID [facility] Collagenase 1 applic 08/10/16 10:00 08/19/16 16:59 Santyl - TP 1 applic DAILY PRICE Administration Docusate Sodium 100 mg 08/13/16 22:00 08/19/16 10:36 Colace - PO 100 mg BID PRICE Administration Furosemide 20 mg 08/10/16 10:00 08/19/16 10:36 Lasix - PO 20 mg DAILY PRICE Administration Heparin Sodium (Porcine) 5,000 unit 08/17/16 14:00 08/19/16 14:48 Heparin - SQ 5,000 unit TID [facility] Administration Ampicillin Sodium/Sulbactam 100 mls @ 200 mls/hr 08/13/16 21:00 08/19/16 16:58 Sodium 3 gm/ Sodium Chloride IVPB 200 mls/hr Q6H-IV PRICE Administration Insulin Aspart 1 vial 08/18/16 11:00 08/19/16 16:58 Novolog Vial Sliding Scale - SQ Not Given ACHS [facility] Protocol Insulin Aspart 60 units 08/18/16 16:30 08/19/16 17:14 Novolog Mix 70/30 Vial SQ 60 units BIDAC PRICE Administration Insulin Detemir 10 units 08/20/16 07:00 Levemir Vial SQ AM PRICE Lactobacillus Acidophilus 1 tab 08/14/16 10:00 08/19/16 10:36 Bacid - PO 1 tab DAILY PRICE Administration Methadone HCl 40 mg/ Methadone 70 mg 08/13/16 06:30 08/19/16 06:41 HCl 30 mg PO 70 mg DAILY@0600 PRICE Administration Metoclopramide HCl 10 mg 08/11/16 11:45 08/19/16 17:14 Reglan - PO 10 mg TIDAC PRICE Administration Ondansetron HCl 4 mg 08/10/16 12:01 08/10/16 20:51 Zofran Injection IVPB 4 mg Q4H PRN Administration NAUSEA Oxycodone HCl 30 mg 08/14/16 18:59 08/19/16 17:23 Roxicodone - PO 30 mg Q4H PRN Administration PAIN Senna 1 tab 08/13/16 22:00 08/19/16 10:38 Senna - PO 1 tab BID PRICE Administration Valsartan 160 mg 08/10/16 10:00 08/19/16 12:40 Diovan - PO Not Given DAILY PRICE Vancomycin HCl 1,000 mg 08/19/16 11:15 08/19/16 12:56 Vancomycin (Pre-Docked) IVPB 1,000 mg BID PRICE Administration Protocol Imaging MRI of L foot: anterior calcaneus osteomyelitis U/S abd on 08/10: Hepatomegaly with diffuse fatty infiltration of the liver X-ray of LLE on 08/10: Soft tissue air/ulceration in the plantar soft tissues of the hindfoot is again noted. Deformities of the calcaneus and talus are unchanged in appearance. Partial amputation of the fifth ray is again noted. There is a linear metallic density measuring about 3 mm in size over the lateral forefoot seen on the oblique view of the foot raising possibility of foreign body, however more likely reflecting artifact as it is only seen on one view. No definite radiographic evidence of osteomyelitis is seen CXR on 08/10: No acute pathology. No significant change ASSESSMENT/PLAN: 51 yo M admitted to the med-surg with sepsis 2/2 cellulitis. ID: non-purulent cellulitis of LLE in the setting of osteomyelitis - Improving - Afrebile with normal WBC - On unasyn day 7, vanco day 10 * trough therapeutic * vanco dose decreased to 1 g Q12H * will cont. current regiment as outpatient for 5 more weeks * weekly ESR, CRP and vanco trough - Awaiting correction placement GI: RUQ and RLQ pain - Resolved - 2/2 Diabetic gastroparesis - Cont. reglan, senna, fleet enema and colace Psy: substance abuse on methadone; PTSD and anxiety - Cont. methadone 70mg daily - Cont. alprazonam 2mg QID Cardiac: HLD - Cont. lipitor 20mg HS - Cont. ASA 81mg daily Renal: HTN - Cont. norvasc 5mg, clonidine 0.2mg BID, lasix 20mg daily, diovan 160mg daily Endocrine: IDDM - Start home regiment: novolog 70/30 60 units BID - Added levemir 10 units SQ AM - Cont. Sliding scale FEN - No IVF - Monitor lytes as needed - Diabetic diet with low Na+ Prophylaxis - DVT: heparin SQ - GI: not indicated Disposition - Awaiting correction acceptance Code status - Full code Visit type - Emergency Visit Emergency Visit: No - New Patient This patient is new to me today: No - Critical Care Critical Care patient: No
[2016-08-19] MEDS ORDERED: INSULIN (NOVOLOG MIX 70/30) 100 UNITS/ML MDV SQ ONE (19:55)
[2016-08-19] MEDS ORDERED: INSULIN (NOVOLOG) ASPART 100 UNITS/ML 10ML VIAL ONE (19:55)
[2016-08-19] MEDS: ATORVASTATIN CA 20 MG TABLET (FP) PO SCH (21:44)
[2016-08-20] MEDS: AMPICILLIN NA/SULBACTAM NA 3 GM in SODIUM CHLORIDE 100 ML IVPB SCH ×4 (03:55→22:16)
[2016-08-20] MEDS: oxyCODONE HCL 5 MG TABLET PO PRN ×5 (04:02→22:35)
[2016-08-20] MEDS ORDERED: METHADONE HCL 40 MG DISPERSABLE TABLET ONE (05:54)
[2016-08-20] MEDS ORDERED: METHADONE HCL 10 MG TABLET ONE (05:55)
[2016-08-20] MEDS: METHADONE 40 MG, METHADONE 30 MG PO SCH (06:12)
[2016-08-20] MEDS: HEPARIN NA (PORCINE) 5,000 UNITS/ML 1ML VIAL SQ SCH ×3 (06:26→22:16)
[2016-08-20] MEDS: INSULIN DETEMIR 100 UNITS/ML MDV SQ SCH (06:27)
[2016-08-20] MEDS: INSULIN (NOVOLOG MIX 70/30) 100 UNITS/ML MDV SQ SCH ×3 (06:27→17:09)
[2016-08-20] MEDS: INSULIN SLIDING SCALE (NOVOLOG) 1 VIAL SQ SCH ×4 (06:27→22:24)
[2016-08-20] MEDS: METOCLOPRAMIDE HCL 10 MG TABLET (FP) PO SCH ×3 (07:49→17:08)
[2016-08-20] MEDS ORDERED: INSULIN (NOVOLOG) ASPART 100 UNITS/ML 10ML VIAL ONE (09:06)
[2016-08-20] MEDS ORDERED: PT OWN MED DRAWER 7, Y5N ONE ×3 (09:08→22:11)
[2016-08-20] MEDS: cloNIDine HCL 0.1 MG TABLET PO SCH ×2 (09:12→22:15)
[2016-08-20] MEDS: LACTOBACILLUS ACIDOPHILUS 1 EACH TAB (FP) PO SCH (09:12)
[2016-08-20] MEDS: ALPRAZolam 2 MG TABLET PO SCH ×4 (09:12→22:15)
[2016-08-20] MEDS: FUROSEMIDE 20 MG TABLET (FP) PO SCH (09:17)
[2016-08-20] MEDS: amLODIPine BESYLATE 5 MG TABLET (FP) PO SCH (09:18)
[2016-08-20] MEDS: DOCUSATE SODIUM 100 MG CAPSULE (FP) PO SCH ×2 (09:18→22:16)
[2016-08-20] MEDS: VALSARTAN 160 MG TABLET (UD) PO SCH (09:18)
[2016-08-20] MEDS: ASPIRIN 81 MG CHEWABLE TABLETS PO SCH (09:19)
[2016-08-20] MEDS: SENNOSIDES 8.6MG TABLET (FP) PO SCH ×2 (10:26→22:15)
[2016-08-20] MEDS: CALCIUM 500MG/VIT-D 200 UNITS COMBO TABLET (FP) PO SCH (10:26)
[2016-08-20] MEDS: VANCOMYCIN 1 GRAM (PRE-DOCKED) 1,000 MG/250 ML BAG IVPB SCH (12:05)
--- NOTE | 2016-08-20 13:30 | PN ---
Teaching Attending Note Name of Resident: Mars Terry ATTENDING PHYSICIAN STATEMENT I saw and evaluated the patient. I reviewed the resident's note and discussed the case with the resident. I agree with the resident's findings and plan as documented. SUBJECTIVE:pain improved. denies CP, SOB, fever, chills, N/V/C/D OBJECTIVE: Last Vital Signs Temp Pulse Resp BP Pulse Ox 98.9 F 56 L 18 134/68 96 08/20/16 06:00 08/20/16 09:00 08/20/16 09:00 08/20/16 09:00 08/19/16 21:00 General NAD Extremities LLE with chronic venous changes. no erythema or edema. tender on palpation ASSESSMENT AND PLAN: 51yo M with complicated medical history presented to the ER and was admitted for further evaluation of their emergent condition 1. 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 medical management for now. Wcx polymicrobial. on Unasyn/Vanco day 24. will need 6 weeks total. weekly ESR/CRP. will need close monitoring with podiatry and ID. 2. Constipation- multiple BM last night. monitor for BM daily 3. DM- controlled. cont lantus AM and novolin. ISS, BGM 4. HTN-improve. AM meds given. hold for SBP <100 5. Chronic methadone dependence- on methadone 70mg. dose confirmed 6. Abdominal pain- due to gastroparesis. now resolved. cont reglan 7. DVT ppx- hep sq 8. awaiting SNF placement for [facility] abx. awaiting on availability as pt is chronic methdone user and most facilities are not authorized to give out. MIKO/CM working on issue. will need PICC line. option of d/c with home infusions is also being pursued. poor option as pt has failed this outpatient treatment in the past due to frequent missed doses.
--- NOTE | 2016-08-20 14:22 | PN ---
Progress Note (short form) - Note Progress Note: ID Vancomcyin Unasyn Therapy for chronic osteomyelitis Selected Entries 08/20/16 13:57 Temperature 97.9 F Pulse Rate 60 Respiratory 18 Rate Blood Pressure 103/60 Laboratory Tests 08/10/16 08/12/16 08/16/16 09:20 06:15 07:15 WBC 7.4 Hgb 11.1 L Hct 32.9 L Plt Count 165 ESR C-Reactive Protein 8.3 H 13.7 H D Vancomycin Trough 08/18/16 08/19/16 08/19/16 21:15 08:05 08:05 WBC Hgb Hct Plt Count ESR 84 H C-Reactive Protein 1.9 H D Vancomycin Trough 18.258 H* D Assessment Calcaneal osteomyelitis CRP is down Plan Antibiotics as outline Sharri CHAKRABORTY
[2016-08-20] MEDS: COLLAGENASE CLOSTRIDIUM HIST. 30 GRAMS TUBE TP SCH (15:03)
--- NOTE | 2016-08-20 16:35 | PN ---
Physical Exam: SUBJECTIVE: Patient seen and examined at bedside. Stated that leg pain and rib pain still persist but improved after oxycodone. No other acute events. OBJECTIVE: Vital Signs Period Temp Pulse Resp BP Sys/Cross Pulse Ox Last 24 Hr 97.9 F-98.9 F 53-60 18-20 103-151/47-68 96 GENERAL: AAO x 3, cooperative, able to speak in full sentences EYES: L eye removed. R eye PERRLA EARS, NOSE, THROAT: Moist mucous membranes. LUNGS: CTAB HEART: RRR, S1 S2 present, no murmur ABDOMEN: + bowel sounds, tenderness in all quadrants, no guarding LOWER EXTREMITIES: RLE s/p BKA. LLE much less erythematous, and still warm, skin sloughing and scaling, 5th metatarsal amputated, L plantar foot ulcer dressing in place NEUROLOGICAL: Cranial nerves II-XII grossly intact SKIN: Warm, dry Laboratory Results - last 24 hr 08/19/16 08/19/16 08/20/16 16:48 21:57 01:22 POC Glucometer 143 86 130 08/20/16 08/20/16 06:18 12:03 POC Glucometer 168 194 Active Medications Generic Name Dose Route Start Last Admin Trade Name Freq PRN Reason Stop Dose Admin Acetaminophen 650 mg 08/10/16 03:03 08/17/16 20:20 Tylenol - PO 650 mg Q4H PRN Administration FEVER OR PAIN Alprazolam 2 mg 08/18/16 15:00 08/20/16 14:59 Xanax - PO 2 mg QID PRICE Administration Amlodipine Besylate 5 mg 08/10/16 10:00 08/20/16 09:18 Norvasc - PO 5 mg DAILY PRICE Administration Aspirin 81 mg 08/10/16 10:00 08/20/16 09:19 Asa - PO 81 mg DAILY PRICE Administration Atorvastatin Calcium 20 mg 08/10/16 22:00 08/19/16 21:44 Lipitor - PO 20 mg HS PRICE Administration Calcium Carbonate/Cholecalciferol 1 tab 08/12/16 10:00 08/20/16 10:26 Os-Tra 500+D - PO 1 tab DAILY PRICE Administration Clonidine 0.2 mg 08/10/16 10:00 08/20/16 09:12 Catapres - PO 0.2 mg BID PRICE Administration Collagenase 1 applic 08/10/16 10:00 08/20/16 15:03 Santyl - TP 1 applic DAILY PRICE Administration Docusate Sodium 100 mg 08/13/16 22:00 08/20/16 09:18 Colace - PO 100 mg BID PRICE Administration Furosemide 20 mg 08/10/16 10:00 08/20/16 09:17 Lasix - PO 20 mg DAILY PRICE Administration Heparin Sodium (Porcine) 5,000 unit 08/17/16 14:00 08/20/16 14:59 Heparin - SQ 5,000 unit TID PRICE Administration Ampicillin Sodium/Sulbactam 100 mls @ 200 mls/hr 08/13/16 21:00 08/20/16 10:25 Sodium 3 gm/ Sodium Chloride IVPB 200 mls/hr Q6H-IV PRICE Administration Insulin Aspart 1 vial 08/18/16 11:00 08/20/16 12:07 Novolog Vial Sliding Scale - SQ 3 units ACHS PRICE Administration Protocol Insulin Aspart 60 units 08/18/16 16:30 08/20/16 09:19 Novolog Mix 70/30 Vial SQ 60 units BIDAC PRICE Administration Insulin Detemir 10 units 08/20/16 07:00 08/20/16 06:27 Levemir Vial SQ 10 units AM PRICE Administration Lactobacillus Acidophilus 1 tab 08/14/16 10:00 08/20/16 09:12 Bacid - PO 1 tab DAILY PRICE Administration Methadone HCl 40 mg/ Methadone 70 mg 08/13/16 06:30 08/20/16 06:12 HCl 30 mg PO 70 mg DAILY@0600 PRICE Administration Metoclopramide HCl 10 mg 08/11/16 11:45 08/20/16 12:56 Reglan - PO 10 mg TIDAC PRICE Administration Ondansetron HCl 4 mg 08/10/16 12:01 08/10/16 20:51 Zofran Injection IVPB 4 mg Q4H PRN Administration NAUSEA Oxycodone HCl 30 mg 08/14/16 18:59 08/20/16 12:50 Roxicodone - PO 30 mg Q4H PRN Administration PAIN Senna 1 tab 08/13/16 22:00 08/20/16 10:26 Senna - PO 1 tab BID PRICE Administration Valsartan 160 mg 08/10/16 10:00 08/20/16 09:18 Diovan - PO 160 mg DAILY PRICE Administration Vancomycin HCl 1,000 mg 08/19/16 11:15 08/20/16 12:05 Vancomycin (Pre-Docked) IVPB 1,000 mg BID PRICE Administration Protocol Imaging MRI of L foot: anterior calcaneus osteomyelitis U/S abd on 08/10: Hepatomegaly with diffuse fatty infiltration of the liver X-ray of LLE on 08/10: Soft tissue air/ulceration in the plantar soft tissues of the hindfoot is again noted. Deformities of the calcaneus and talus are unchanged in appearance. Partial amputation of the fifth ray is again noted. There is a linear metallic density measuring about 3 mm in size over the lateral forefoot seen on the oblique view of the foot raising possibility of foreign body, however more likely reflecting artifact as it is only seen on one view. No definite radiographic evidence of osteomyelitis is seen CXR on 08/10: No acute pathology. No significant change ASSESSMENT/PLAN: 51 yo M admitted to the med-surg with sepsis 2/2 cellulitis. ID: non-purulent cellulitis of LLE in the setting of osteomyelitis - Improving - On unasyn day 8, vanco day 11 * trough therapeutic * vanco adjusted to 1 g Q12H * will cont. current regiment as outpatient for 5 more weeks * weekly ESR, CRP and vanco trough GI: RUQ and RLQ pain - Resolved - 2/2 Diabetic gastroparesis - Cont. reglan, senna, fleet enema and colace Psy: substance abuse on methadone; PTSD and anxiety - Cont. methadone 70mg daily - Cont. alprazonam 2mg QID Cardiac: HLD - Cont. lipitor 20mg HS - Cont. ASA 81mg daily Renal: HTN - Cont. norvasc 5mg, clonidine 0.2mg BID, lasix 20mg daily, diovan 160mg daily Endocrine: IDDM - Start home regiment: novolog 70/30 60 units BID - Added levemir 10 units SQ AM - Cont. Sliding scale FEN - No IVF - Monitor lytes as needed - Diabetic diet with low Na+ Prophylaxis - DVT: heparin SQ - GI: not indicated Disposition - Awaiting placement Code status - Full code Visit type - Emergency Visit Emergency Visit: No - New Patient This patient is new to me today: No - Critical Care Critical Care patient: No - Discharge Referral Referred to [facility] Med P.C[facility] No
[2016-08-20] MEDS: ATORVASTATIN CA 20 MG TABLET (FP) PO SCH (22:15)
[2016-08-21] MEDS: VANCOMYCIN 1 GRAM (PRE-DOCKED) 1,000 MG/250 ML BAG IVPB SCH ×2 (00:20→12:27)
[2016-08-21] MEDS: AMPICILLIN NA/SULBACTAM NA 3 GM in SODIUM CHLORIDE 100 ML IVPB SCH ×3 (04:46→17:13)
[2016-08-21] MEDS: oxyCODONE HCL 5 MG TABLET PO PRN ×2 (05:04→11:19)
[2016-08-21] MEDS ORDERED: METHADONE HCL 40 MG DISPERSABLE TABLET ONE (06:43)
[2016-08-21] MEDS ORDERED: METHADONE HCL 10 MG TABLET ONE (06:44)
[2016-08-21] MEDS: METHADONE 40 MG, METHADONE 30 MG PO SCH (06:48)
[2016-08-21] MEDS: METOCLOPRAMIDE HCL 10 MG TABLET (FP) PO SCH ×2 (06:49→11:18)
[2016-08-21] MEDS: HEPARIN NA (PORCINE) 5,000 UNITS/ML 1ML VIAL SQ SCH ×2 (06:51→15:30)
[2016-08-21] MEDS: INSULIN DETEMIR 100 UNITS/ML MDV SQ SCH (06:51)
[2016-08-21] MEDS ORDERED: INSULIN (NOVOLOG MIX 70/30) 100 UNITS/ML MDV SQ SCH (07:54)
[2016-08-21] MEDS ORDERED: INSULIN SLIDING SCALE (NOVOLOG) 1 VIAL SQ SCH (07:56)
--- NOTE | 2016-08-21 08:31 | PN ---
Progress Note (short form) - Note Progress Note: no complaints leg is complaining Vital Signs Period Temp Pulse Resp BP Sys/Cross Pulse Ox Last 24 Hr 97.9 F-98.3 F 52-62 18-20 103-134/60-78 96 cor-rrr lungs clear abd-soft,nt ext less edema, erythema of the leg CBC, BMP 08/16/16 07:15 08/19/16 08:05 a/p calcaneal osteomyelitis cellulitis- improving diabetes day #12 antibiotics check vancomycin trough should have weekly labs while on iv antibiotics - cbc/cmp/esr/crp/vancomycin trough plan 6 weeks total antibiotics he needs another 4 weeks d/c unasyn switch to po bactrim 1 ds po bid for one month NEEDS to f/u in our office with Dr Harrell BEFORE antibiotics are completed (he has anther 4 weeks) he will require skilled nursing po antibiotics for suppressive treatment Patient is aware of the above please call back if needed can switch vancomycin dosing to what is convenient for VNS and his aide (must be q12h) Problem List - Problems (1) Cellulitis of left leg Code(s): L03.116 - CELLULITIS OF LEFT LOWER LIMB (2) Chronic foot ulcer Code(s): L97.509 - NON-PRESSURE CHRONIC ULCER OTH PRT UNSP FOOT W UNSP SEVERITY (3) Diabetes mellitus Code(s): E11.9 - TYPE 2 DIABETES MELLITUS WITHOUT COMPLICATIONS
[2016-08-21] MEDS: INSULIN SLIDING SCALE (NOVOLOG) 1 VIAL SQ SCH (08:46)
[2016-08-21] MEDS ORDERED: PICC LINE 8 ML FLUSH PROTOCOL IVPUSH PRN (08:51)
[2016-08-21] MEDS: INSULIN (NOVOLOG MIX 70/30) 100 UNITS/ML MDV SQ SCH (08:59)
[2016-08-21] MEDS ORDERED: PT OWN MED DRAWER 7, Y5N ONE (10:59)
[2016-08-21] MEDS: VALSARTAN 160 MG TABLET (UD) PO SCH (11:18)
[2016-08-21] MEDS: ALPRAZolam 2 MG TABLET PO SCH ×2 (11:18→15:30)
[2016-08-21] MEDS: SENNOSIDES 8.6MG TABLET (FP) PO SCH (11:18)
[2016-08-21] MEDS: amLODIPine BESYLATE 5 MG TABLET (FP) PO SCH (11:18)
[2016-08-21] MEDS: FUROSEMIDE 20 MG TABLET (FP) PO SCH (11:18)
[2016-08-21] MEDS: ASPIRIN 81 MG CHEWABLE TABLETS PO SCH (11:18)
[2016-08-21] MEDS: CALCIUM 500MG/VIT-D 200 UNITS COMBO TABLET (FP) PO SCH (11:18)
[2016-08-21] MEDS: DOCUSATE SODIUM 100 MG CAPSULE (FP) PO SCH (11:19)
[2016-08-21] MEDS: cloNIDine HCL 0.1 MG TABLET PO SCH (11:19)
[2016-08-21] MEDS: LACTOBACILLUS ACIDOPHILUS 1 EACH TAB (FP) PO SCH (11:19)
[2016-08-21] MEDS: COLLAGENASE CLOSTRIDIUM HIST. 30 GRAMS TUBE TP SCH (11:20)
--- NOTE | 2016-08-21 13:11 | PN ---
Teaching Attending Note Name of Resident: Mars Terry ATTENDING PHYSICIAN STATEMENT I saw and evaluated the patient. I reviewed the resident's note and discussed the case with the resident. I agree with the resident's findings and plan as documented. SUBJECTIVE:asymptomatic. denies CP, SOB,fever, chills, N/V/C/D OBJECTIVE: Last Vital Signs Temp Pulse Resp BP Pulse Ox 98.3 F 62 18 106/78 96 08/21/16 06:00 08/21/16 06:00 08/21/16 06:00 08/21/16 06:00 08/20/16 21:00 General NAD Extremities LLE with chronic venous changes. no erythema or edema. tender on palpation ASSESSMENT AND PLAN: 51yo M with complicated medical history presented to the ER and was admitted for further evaluation of their emergent condition 1. 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 medical management for now. Wcx polymicrobial. on Unasyn/Vanco day 25. d/c unasyn. start bactrim DS. will need 4 more weeks of ABx. weekly cbc/esr/crp/vanco trough. will need close monitoring with podiatry and ID. 2. Constipation- resolved. cont stool softeners 3. DM- episode of hypoglycemia last night. decrease 70/30 to 55 units BID. cont lantus AM , ISS, BGM 4. HTN-improved/ cont home medications. hold for SBP <100 5. Chronic methadone dependence- on methadone 70mg. dose confirmed 6. Abdominal pain- due to gastroparesis. now resolved. cont reglan 7. DVT ppx- hep sq 8. d/c home with PICC and VNS for 4 additional weeks of abx. will give 1 week of ativan and percocet as pt states he is out and will not be able to see PMD till to prevent pt from going into withdrawals.
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
[2016-08-21 17:45] VITALS: BP 127/62; PULSE 59; TEMP 97.9
== END 2016-08-21 16:11 | disposition home health service (06) | DRG 720 ==
LOC: SUPCPDRO 23:49 → JER 23:49 → JERBED 08-10 02:18 → UNDOADMIN 08-10 02:34 → JERBED 08-10 02:34 → J5S 08-10 06:20
PROVIDERS: ADMIT Internal Medicine; ATTEND Internal Medicine
PROC: 02HV33Z Insertion of Infusion Device into Superior Vena Cava, Percutaneous Approach (ICD-10-PCS; principal; 2016-08-21)
DX: A41.02 Sepsis due to Methicillin resistant Staphylococcus aureus (principal); E11.621 Type 2 diabetes mellitus with foot ulcer; L97.529 Non-pressure chronic ulcer of other part of left foot with unspecified severity; E11.69 Type 2 diabetes mellitus with other specified complication; E11.40 Type 2 diabetes mellitus with diabetic neuropathy, unspecified; M86.8X8 Other osteomyelitis, other site; E11.43 Type 2 diabetes mellitus with diabetic autonomic (poly)neuropathy; E11.65 Type 2 diabetes mellitus with hyperglycemia; I10 Essential (primary) hypertension; E78.5 Hyperlipidemia, unspecified; R11.2 Nausea with vomiting, unspecified; F43.10 Post-traumatic stress disorder, unspecified; K76.0 Fatty (change of) liver, not elsewhere classified; F11.20 Opioid dependence, uncomplicated; R19.7 Diarrhea, unspecified; G89.29 Other chronic pain; L03.116 Cellulitis of left lower limb; K31.84 Gastroparesis; K59.00 Constipation, unspecified; B19.20 Unspecified viral hepatitis C without hepatic coma; Z79.4 Long term (current) use of insulin; Z89.422 Acquired absence of other left toe(s); Z89.511 Acquired absence of right leg below knee
CPT/HCPCS: 36415; 36569; 36600; 71010-TC; 73610-TC-LT; 73630-TC-LT; 73718-TC; 76705-TC; 77001-TC; 80048; 80053; 81003; 82375; 82550; 82553; 82803; 83036; 83050; 83605; 83735; 84100; 84484; 85025; 85027; 85610; 85651; 85730; 86140; 86850; 86900; 86901; 87040; 87070; 87077; 87086; 87186; 87205; 87254; 87804; 93005; 93010; 97161-GP; 99283-25; C1751; G0480; J1644

== ENCOUNTER 2018-07-01 13:25 | Inpatient (IN) | payer OTHER ==
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
[2018-07-01] MEDS ORDERED: PIPERACILLIN/TAZOB 3.375 GM 3.375 GM in DEXTROSE 5%-WATER - 50 ML IVPB ONE (14:35)
[2018-07-01] MEDS ORDERED: VANCOMYCIN 1 GM in D5W (PRE-DOCKED) 1,000 MG/250 ML IVPB ONE (14:35)
[2018-07-01] MEDS ORDERED: PIPERACILLIN/TAZOB 3.375 GM 3.375 GM/50 ML BAG IVPB ONE (14:58)
[2018-07-01] MEDS ORDERED: VANCOMYCIN 1 GRAM (PRE-DOCKED) 1,000 MG/250 ML BAG IVPB ONE (14:58)
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
[2018-07-01 15:50] LABS: BASO % 0.5 % (0-2.0); EOS % 3.9 % (0-4.5); HEMATOCRIT 36.6 % (35.4-49); HEMOGLOBIN 12.2 GM/dL (11.7-16.9); LYMPH % 23.9 % (8-40); MCH 29.1 pg (25.7-33.7); MCHC 33.3 g/dl (32.0-35.9); MEAN CELL VOLUME 87.4 fl (80-96); MEAN PLT VOLUME 10.3 fl (7.5-11.1); MONO % 9.5 % (3.8-10.2); NEUT % 62.2 % (42.8-82.8); PLATELET COUNT 138 K/MM3 (134-434); RBC 4.19 M/mm3 (4.00-5.60); RDW 14.1 % (11.9-15.9); WHITE BLOOD COUNT 5.2 K/mm3 (4.0-10.0)
[2018-07-01 15:59] LABS: ALBUMIN 3.1 g/dl (3.4-5.0); ALK PHOS 104 U/L (45-117); ANION GAP 6 MMOL/L (8-16); BILIRUBIN,TOTAL 0.4 mg/dL (0.2-1); BLOOD UREA NITROGEN 25 mg/dL (7-18); CALCIUM 8.7 mg/dL (8.5-10.1); CHLORIDE 104 mmol/L (98-107); CO2 25 mmol/L (21-32); GLUCOSE,RANDOM 138 mg/dL (74-106); POTASSIUM 4.3 mmol/L (3.5-5.1); SGOT/AST 52 U/L (15-37); SGPT/ALT 44 U/L (13-61); SODIUM 136 mmol/L (136-145); TOT PROT 6.7 g/dl (6.4-8.2)
[2018-07-01 16:10] LABS: INR 1.03 (0.83-1.09); PROTHROMBIN TIME (PATIENT) 12.2 SEC (9.7-13.0)
[2018-07-01 16:12] LABS: ACTIVATED PTT 33.5 SECONDS (25.2-36.5)
[2018-07-01 17:18] LABS: ERYTHROCYTE SEDIMENTATION RATE 23 mm/hr (0-20)
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
[2018-07-01 20:38] VITALS: BMI 41.0
[2018-07-01] MEDS: INSULIN (NOVOLOG MIX 70/30) 100 UNITS/ML MDV SQ SCH (21:30)
[2018-07-01] MEDS: DOCUSATE SODIUM 100 MG CAPSULE (FP) PO SCH (21:30)
[2018-07-01] MEDS: ATORVASTATIN CA 20 MG TABLET (FP) PO SCH (21:31)
[2018-07-01] MEDS: oxyCODONE HCL 5 MG TABLET PO PRN (21:31)
[2018-07-01] MEDS: CALCIUM 500MG/VIT-D 200 UNITS COMBO TABLET (FP) PO SCH (21:31)
[2018-07-01] MEDS: cloNIDine HCL 0.1 MG TABLET PO SCH (22:00)
[2018-07-01] MEDS: ALPRAZolam 2 MG TABLET PO PRN (23:09)
[2018-07-01] MEDS: INSULIN SLIDING SCALE (NOVOLOG) 1 VIAL SQ SCH (23:12)
[2018-07-02] MEDS: oxyCODONE HCL 5 MG TABLET PO PRN ×5 (03:54→22:26)
[2018-07-02] MEDS ORDERED: DEXTROSE 50%-WATER 25 GM/50 ML DISP.SYRIN IVPUSH ONE (06:26)
[2018-07-02] MEDS ORDERED: DEXTROSE 50%-WATER 25 GM/50 ML DISP.SYRIN ONE (06:27)
[2018-07-02] MEDS: METOCLOPRAMIDE HCL 10 MG TABLET (FP) PO SCH ×3 (06:58→16:08)
[2018-07-02] MEDS: INSULIN (NOVOLOG MIX 70/30) 100 UNITS/ML MDV SQ SCH ×3 (07:03→21:23)
[2018-07-02] MEDS: ALPRAZolam 2 MG TABLET PO PRN ×3 (07:17→23:17)
[2018-07-02 07:32] LABS: HEMATOCRIT 37.3 % (35.4-49); HEMOGLOBIN 12.3 GM/dL (11.7-16.9); MCH 28.2 pg (25.7-33.7); MEAN CELL VOLUME 85.3 fl (80-96); MEAN PLT VOLUME 10.1 fl (7.5-11.1); PLATELET COUNT 148 K/MM3 (134-434); RBC 4.37 M/mm3 (4.00-5.60); RDW 13.7 % (11.9-15.9); WHITE BLOOD COUNT 5.9 K/mm3 (4.0-10.0)
[2018-07-02] MEDS: INSULIN SLIDING SCALE (NOVOLOG) 1 VIAL SQ SCH ×5 (07:54→21:24)
[2018-07-02 08:23] LABS: ALK PHOS 96 U/L (45-117); ANION GAP 7 MMOL/L (8-16); BILIRUBIN,TOTAL 0.5 mg/dL (0.2-1); BLOOD UREA NITROGEN 17 mg/dL (7-18); CALCIUM 8.1 mg/dL (8.5-10.1); CHLORIDE 106 mmol/L (98-107); CO2 26 mmol/L (21-32); CREATININE 0.9 mg/dL (0.55-1.3); GLUCOSE,RANDOM 51 mg/dL (74-106); POTASSIUM 4.1 mmol/L (3.5-5.1); SGOT/AST 55 U/L (15-37); SGPT/ALT 43 U/L (13-61); SODIUM 140 mmol/L (136-145); TOT PROT 6.2 g/dl (6.4-8.2)
--- NOTE | 2018-07-02 09:42 | CONSULT ---
Consult Consult Specialty:: podiatry Reason for Consultation:: cellulitis left leg and left foot eval - History of Present Illness Chief Complaint: cellulitis left leg History of Present Illness: wound left leg. cellulitis of 2 weeks duration left leg. - History Source History Provided By: Patient - Past Medical History Cardio/Vascular: Yes: HTN Infectious Disease: Yes: MRSA Musculoskeletal: Yes: Chronic low back pain, Osteoarthritis - Alcohol/Substance Use Hx Alcohol Use: No - Smoking History Smoking history: Never smoked Have you smoked in the past 12 months: No Home Medications - Allergies Allergies/Adverse Reactions: Allergies Allergy/AdvReac Type Severity Reaction Status Date / Time No Known Allergies Allergy Verified 07/01/18 13:55 - Home Medications Home Medications: Ambulatory Orders Amlodipine Besylate 5 mg PO DAILY 12/26/15 Aspirin [ASA -] 81 mg PO DAILY 12/26/15 Atorvastatin Ca [Lipitor] 20 mg PO HS 12/26/15 Furosemide 20 mg PO DAILY 12/26/15 Valsartan [Diovan] 160 mg PO DAILY 12/26/15 Docusate Sodium [Colace -] 100 mg PO BID #60 tab 08/21/16 Insulin Aspart Prot/Insuln Asp [Novolog Mix 70-30 Vial] 60 units SQ BID Oxycodone HCl 30 mg PO Q3H PRN MDD 180 10/20/17 Acetaminophen [Tylenol .Regular Strength -] 325 mg PO Q6HPO tablet 10/22/17 Alprazolam [Xanax] 2 mg PO Q6H PRN #10 tablet MDD 8 10/22/17 Calcium 500Mg/Vit-D 200 Units [Os-Tra 500+D -] 1 tab PO BID tab 10/22/17 Lactobacillus Acidophilus [Bacid -] 1 tab PO DAILY tab 10/22/17 Metoclopramide HCl [Reglan -] 10 mg PO TIDAC tablet 10/22/17 Insulin Sliding Scale [Novolog Vial Sliding Scale -] 1 vial SQ ACHS units 07/04 Sulfamethoxazole/Trimethoprim [Bactrim DS -] 1 each PO BID 7 Days #14 tablet 04/23 cloNIDine HCL [Catapres -] 0.2 mg PO BID tablet 07/04/18 Physical Exam Vital Signs: Vital Signs Temperature 97.5 F L 07/02/18 04:43 Pulse Rate 75 07/02/18 04:43 Respiratory Rate 20 07/02/18 04:43 Blood Pressure 170/77 07/02/18 04:43 O2 Sat by Pulse Oximetry (%) 98 07/01/18 20:10 Extremities: Yes: Other (cellulitis left leg, left foot appears to be in adequate appearance, no wunds noted,) Labs: CBC, BMP 07/02/18 06:00 07/02/18 05:45 Assessment/Plan cellulitis left leeg non compliant diabetic discussed proper foot care. awaiting prosthetic right leg. foot care q 8 weeks. dressing changes to left leg. will follow.
[2018-07-02] MEDS: FUROSEMIDE 20 MG TABLET (FP) PO SCH (10:32)
[2018-07-02] MEDS: LACTOBACILLUS ACIDOPHILUS 1 TABLET PO SCH (10:32)
[2018-07-02] MEDS: DOCUSATE SODIUM 100 MG CAPSULE (FP) PO SCH ×2 (10:32→21:22)
[2018-07-02] MEDS: amLODIPine BESYLATE 5 MG TABLET (FP) PO SCH (10:33)
[2018-07-02] MEDS: cloNIDine HCL 0.1 MG TABLET PO SCH ×2 (10:33→21:22)
[2018-07-02] MEDS: ASPIRIN 81 MG CHEWABLE TABLETS PO SCH (10:33)
[2018-07-02] MEDS: CALCIUM 500MG/VIT-D 200 UNITS COMBO TABLET (FP) PO SCH ×2 (10:33→21:23)
[2018-07-02] MEDS: VALSARTAN 160 MG TABLET (UD) PO SCH (10:33)
--- NOTE | 2018-07-02 11:33 | PN ---
Progress Note (short form) - Note Progress Note: Vascular Surgery Left carty ulcer with cellulitis for a couple of days. Left carty wound is draining. The left carty is warm with erythema. Please place alginate to wound daily with kerlex. ID eval for antibiotics. Jose Guadalupe Bellamy DO
--- NOTE | 2018-07-02 14:30 | PN ---
Progress Note (short form) - Note Progress Note: no complaints Vital Signs Period Temp Pulse Resp BP Sys/Cross Pulse Ox Last 24 Hr 97.8 F-98.0 F 58-67 19-20 159-170/76-94 95 cor-rrr lungs clear leg is much improved, now dry, less erythema CBC, BMP 07/02/18 06:00 07/02/18 05:45 Microbiology 07/01/18 14:34 Blood - Peripheral Venous Blood Culture - Preliminary NO GROWTH OBTAINED AFTER 48 HOURS, INCUBATION TO CONTINUE FOR 3 DAYS. 07/01/18 14:34 Blood - Peripheral Venous Blood Culture - Preliminary NO GROWTH OBTAINED AFTER 48 HOURS, INCUBATION TO CONTINUE FOR 3 DAYS. 07/02/18 09:43 Leg - Left Lower Gram Stain - Final 07/02/18 09:43 Leg - Left Lower Wound Culture - Preliminary Presumptive Mrsa (Pbp2a Pos) plan cellulitis diabetes vanco to continue d/c cefepime f/u cultures f/u vanco level hopefully switch to po antibiotics in am- clindamycin or bactrim based on sensitivities
[2018-07-02] MEDS ORDERED: VANCOMYCIN HCL 1,500 MG in DEXTROSE 5%-WATER - 500 ML IVPB SCH (15:00)
[2018-07-02] MEDS: CEFEPIME 2 GM in DEXTROSE 5%-WATER 100 ML IVPB SCH ×2 (16:08→17:24)
[2018-07-02] MEDS: VANCOMYCIN HCL 1,500 MG in DEXTROSE 5%-WATER - 500 ML IVPB SCH (18:18)
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
[2018-07-02] MEDS: ATORVASTATIN CA 20 MG TABLET (FP) PO SCH (21:23)
[2018-07-03] MEDS: CEFEPIME 2 GM in DEXTROSE 5%-WATER 100 ML IVPB SCH ×2 (02:09→11:35)
[2018-07-03] MEDS: oxyCODONE HCL 5 MG TABLET PO PRN ×5 (03:21→22:16)
[2018-07-03] MEDS: VANCOMYCIN HCL 1,500 MG in DEXTROSE 5%-WATER - 500 ML IVPB SCH ×2 (05:23→20:02)
[2018-07-03] MEDS: ALPRAZolam 2 MG TABLET PO PRN ×3 (05:35→23:17)
[2018-07-03] MEDS ORDERED: PT OWN MED DRAWER 7, Y5N ONE ×2 (05:46→07:47)
[2018-07-03] MEDS: INSULIN SLIDING SCALE (NOVOLOG) 1 VIAL SQ SCH ×4 (07:41→22:23)
[2018-07-03] MEDS: INSULIN (NOVOLOG MIX 70/30) 100 UNITS/ML MDV SQ SCH ×2 (08:03→22:07)
[2018-07-03] MEDS: METOCLOPRAMIDE HCL 10 MG TABLET (FP) PO SCH ×3 (08:03→18:22)
[2018-07-03] MEDS: amLODIPine BESYLATE 5 MG TABLET (FP) PO SCH (11:33)
[2018-07-03] MEDS: ASPIRIN 81 MG CHEWABLE TABLETS PO SCH (11:33)
[2018-07-03] MEDS: cloNIDine HCL 0.1 MG TABLET PO SCH ×2 (11:34→22:07)
[2018-07-03] MEDS: DOCUSATE SODIUM 100 MG CAPSULE (FP) PO SCH ×2 (11:34→22:07)
[2018-07-03] MEDS: CALCIUM 500MG/VIT-D 200 UNITS COMBO TABLET (FP) PO SCH ×2 (11:35→22:07)
[2018-07-03] MEDS: LACTOBACILLUS ACIDOPHILUS 1 TABLET PO SCH (11:35)
[2018-07-03] MEDS: FUROSEMIDE 20 MG TABLET (FP) PO SCH (11:35)
[2018-07-03] MEDS: VALSARTAN 160 MG TABLET (UD) PO SCH (11:36)
[2018-07-03] MEDS: ATORVASTATIN CA 20 MG TABLET (FP) PO SCH (22:07)
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
[2018-07-04] MEDS: oxyCODONE HCL 5 MG TABLET PO PRN ×3 (02:15→14:34)
[2018-07-04] MEDS ORDERED: VANCOMYCIN HCL 1,500 MG in SODIUM CHLORIDE 500 ML IVPB SCH (06:00)
[2018-07-04] MEDS: METOCLOPRAMIDE HCL 10 MG TABLET (FP) PO SCH ×2 (06:42→13:19)
[2018-07-04] MEDS: INSULIN SLIDING SCALE (NOVOLOG) 1 VIAL SQ SCH ×2 (06:42→13:12)
[2018-07-04] MEDS: INSULIN (NOVOLOG MIX 70/30) 100 UNITS/ML MDV SQ SCH (06:43)
[2018-07-04] MEDS: ALPRAZolam 2 MG TABLET PO PRN ×2 (06:45→14:30)
[2018-07-04 07:02] VITALS: PULSE 68
[2018-07-04 07:24] LABS: BASO % 0.4 % (0-2.0); EOS % 3.9 % (0-4.5); HEMATOCRIT 39.6 % (35.4-49); LYMPH % 25.1 % (8-40); MCH 28.2 pg (25.7-33.7); MCHC 32.9 g/dl (32.0-35.9); MEAN CELL VOLUME 85.6 fl (80-96); MEAN PLT VOLUME 9.7 fl (7.5-11.1); MONO % 6.3 % (3.8-10.2); NEUT % 64.3 % (42.8-82.8); PLATELET COUNT 162 K/MM3 (134-434); RBC 4.62 M/mm3 (4.00-5.60); RDW 13.8 % (11.9-15.9); WHITE BLOOD COUNT 7.7 K/mm3 (4.0-10.0)
[2018-07-04 08:04] LABS: ANION GAP 6 MMOL/L (8-16); BLOOD UREA NITROGEN 17 mg/dL (7-18); CHLORIDE 103 mmol/L (98-107); CO2 29 mmol/L (21-32); CREATININE 0.9 mg/dL (0.55-1.3); GLUCOSE,RANDOM 85 mg/dL (74-106); POTASSIUM 3.8 mmol/L (3.5-5.1); SODIUM 138 mmol/L (136-145)
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
[2018-07-04] MEDS: FUROSEMIDE 20 MG TABLET (FP) PO SCH (09:35)
[2018-07-04] MEDS: CALCIUM 500MG/VIT-D 200 UNITS COMBO TABLET (FP) PO SCH (09:35)
[2018-07-04] MEDS: LACTOBACILLUS ACIDOPHILUS 1 TABLET PO SCH (09:35)
[2018-07-04] MEDS: cloNIDine HCL 0.1 MG TABLET PO SCH (09:35)
[2018-07-04] MEDS: ASPIRIN 81 MG CHEWABLE TABLETS PO SCH (09:36)
[2018-07-04] MEDS: amLODIPine BESYLATE 5 MG TABLET (FP) PO SCH (09:36)
[2018-07-04] MEDS: VALSARTAN 160 MG TABLET (UD) PO SCH (09:36)
[2018-07-04] MEDS: DOCUSATE SODIUM 100 MG CAPSULE (FP) PO SCH (09:36)
--- NOTE | 2018-07-04 09:59 | EKG ---
Test Reason : Blood Pressure : / mmHG Vent. Rate : 060 BPM Atrial Rate : 060 BPM P-R Int : 210 ms QRS Dur : 090 ms QT Int : 444 ms P-R-T Axes : 046 023 018 degrees QTc Int : 444 ms SINUS RHYTHM WITH 1ST DEGREE A-V BLOCK OTHERWISE NORMAL ECG WHEN COMPARED WITH ECG OF 01-JUL-2018 13:56, NO SIGNIFICANT CHANGE WAS FOUND Confirmed by TAYLOR CHAKRABORTY, FERNANDO ([id number]) on 07/04/2018 9:59:23 AM Referred By: Mike WASSERMAN Confirmed By:FERNANDO VAZQUEZ MD
--- NOTE | 2018-07-04 11:14 | EKG ---
Test Reason : Blood Pressure : / mmHG Vent. Rate : 058 BPM Atrial Rate : 058 BPM P-R Int : 212 ms QRS Dur : 090 ms QT Int : 424 ms P-R-T Axes : 041 023 013 degrees QTc Int : 416 ms SINUS BRADYCARDIA WITH 1ST DEGREE A-V BLOCK OTHERWISE NORMAL ECG WHEN COMPARED WITH ECG OF 19-OCT-2017 19:00, NO SIGNIFICANT CHANGE WAS FOUND Confirmed by FERNANDO VAZQUEZ MD ([id number]) on 07/04/2018 11:14:19 AM Referred By: Confirmed By:FERNANDO VAZQUEZ MD
--- NOTE | 2018-07-04 12:53 | PN ---
Progress Note (short form) - Note Progress Note: no complaints Vital Signs Period Temp Pulse Resp BP Sys/Cross Pulse Ox Last 24 Hr 97.9 F-99.1 F 62-68 19-20 109-188/51-92 97 cor-rrr lungs clear abd soft,nt ext less erythema, superficial erosion RLE dry, no drainage CBC, BMP 07/04/18 06:30 07/04/18 06:30 Microbiology 07/02/18 09:43 Leg - Left Lower Gram Stain - Final 07/02/18 09:43 Leg - Left Lower Wound Culture - Final Mr S Aureus 07/01/18 14:34 Blood - Peripheral Venous Blood Culture - Preliminary NO GROWTH OBTAINED AFTER 48 HOURS, INCUBATION TO CONTINUE FOR 3 DAYS. 07/01/18 14:34 Blood - Peripheral Venous Blood Culture - Preliminary NO GROWTH OBTAINED AFTER 48 HOURS, INCUBATION TO CONTINUE FOR 3 DAYS. plan cellulitis-MRSA diabetes switch to po bactrim for one week f/u with PMD as outpt please call back if needed
[2018-07-04 14:46] VITALS: BP 138/87; TEMP 98
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
[2018-07-04] MEDS ORDERED: SULFAMETHOXAZOLE/TRIMETHOPRIM 800MG/160MG D.S. TABLET PO SCH (22:00)
== END 2018-07-04 16:25 | disposition home or self-care (01) | DRG 383 ==
LOC: JER 13:25 → JERBED 16:49 → J8W 19:01
PROVIDERS: ADMIT Family Medicine; ATTEND Family Medicine
DX: L03.116 Cellulitis of left lower limb (principal); E11.621 Type 2 diabetes mellitus with foot ulcer; Z68.41 Body mass index [BMI] 40.0-44.9, adult; L97.529 Non-pressure chronic ulcer of other part of left foot with unspecified severity; Z89.511 Acquired absence of right leg below knee; B19.20 Unspecified viral hepatitis C without hepatic coma; I10 Essential (primary) hypertension; Z79.4 Long term (current) use of insulin; E66.9 Obesity, unspecified; Z89.422 Acquired absence of other left toe(s); G89.4 Chronic pain syndrome; B95.62 Methicillin resistant Staphylococcus aureus infection as the cause of diseases classified elsewhere
CPT/HCPCS: 36415; 73590-TC-LT-FY; 73630-TC-LT; 80048; 80053; 82962; 83605; 84443; 85025; 85027; 85610; 85651; 85730; 86140; 87040; 87070; 87186; 87205; 93005; 93010; 99283-25; G0480; J0735

== ENCOUNTER 2018-07-26 10:15 | Inpatient (IN) | payer OTHER ==
[2018-07-26] MEDS ORDERED: PIPERACILLIN/TAZOB 4.5 GM 4.5 GM in DEXTROSE 5%-WATER 100 ML IVPB ONE (10:29)
[2018-07-26] MEDS ORDERED: VANCOMYCIN 1,000 MG in DEXTROSE 5%-WATER - 250 ML IVPB ONE (10:29)
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
[2018-07-26] MEDS ORDERED: PIPERACILLIN/TAZOB 4.5 GM 4.5 GM/100 ML BAG IVPB ONE (11:21)
[2018-07-26] MEDS ORDERED: VANCOMYCIN 1 GRAM (PRE-DOCKED) 1,000 MG/250 ML BAG IVPB ONE (11:21)
[2018-07-26 11:52] LABS: BASO % 0.3 % (0-2.0); EOS % 0.9 % (0-4.5); HEMATOCRIT 34.7 % (35.4-49); HEMOGLOBIN 11.5 GM/dL (11.7-16.9); LYMPH % 15.5 % (8-40); MCH 28.6 pg (25.7-33.7); MCHC 33.2 g/dl (32.0-35.9); MEAN CELL VOLUME 86.1 fl (80-96); MEAN PLT VOLUME 9.8 fl (7.5-11.1); MONO % 8.2 % (3.8-10.2); NEUT % 75.1 % (42.8-82.8); PLATELET COUNT 126 K/MM3 (134-434); RBC 4.04 M/mm3 (4.00-5.60); RDW 14.2 % (11.9-15.9); WHITE BLOOD COUNT 9.3 K/mm3 (4.0-10.0)
[2018-07-26 12:02] LABS: INR 1.21 (0.83-1.09); PROTHROMBIN TIME (PATIENT) 14.3 SEC (9.7-13.0)
[2018-07-26 12:05] LABS: ACTIVATED PTT 39.3 SECONDS (25.2-36.5)
[2018-07-26 12:19] LABS: ALBUMIN 2.7 g/dl (3.4-5.0); ALK PHOS 92 U/L (45-117); ANION GAP 9 MMOL/L (8-16); BILIRUBIN,TOTAL 0.6 mg/dL (0.2-1); BLOOD UREA NITROGEN 23 mg/dL (7-18); CHLORIDE 100 mmol/L (98-107); CO2 26 mmol/L (21-32); CREATININE 1.3 mg/dL (0.55-1.3); GLUCOSE,RANDOM 257 mg/dL (74-106); POTASSIUM 3.6 mmol/L (3.5-5.1); SGOT/AST 39 U/L (15-37); SGPT/ALT 28 U/L (13-61); SODIUM 135 mmol/L (136-145); TOT PROT 6.5 g/dl (6.4-8.2)
[2018-07-26] MEDS ORDERED: SODIUM CHLORIDE 0.9% 1000 ML INFUS.BAG IV ONE (12:21)
--- NOTE | 2018-07-26 12:34 | EKG ---
Test Reason : Blood Pressure : / mmHG Vent. Rate : 049 BPM Atrial Rate : 049 BPM P-R Int : 202 ms QRS Dur : 094 ms QT Int : 452 ms P-R-T Axes : 031 002 005 degrees QTc Int : 408 ms SINUS BRADYCARDIA OTHERWISE NORMAL ECG Confirmed by MD VITO, SONIA ([id number]) on 07/26/2018 12:34:11 PM Referred By: Confirmed By:SONIA PADRON MD
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
[2018-07-26 14:53] LABS: EPI CELLS 0.6 /HPF (0-5/HPF); PH,URINE 5.5 (5.0-8.0); URINE APPEARANCE CLEAR; URINE BACTERIA 5.1 /hpf (NEGATIVE); URINE BILIRUBIN NEGATIVE (NEGATIVE); URINE CASTS 4 /lpf (0-8); URINE COLOR YELLOW; URINE GLUCOSE (UA) 1+ (NEGATIVE); URINE KETONE NEGATIVE (NEGATIVE); URINE LEUK ESTERASE NEGATIVE (NEGATIVE); URINE NITRITE NEGATIVE (NEGATIVE); URINE PROTEIN 1+ (NEGATIVE); URINE RBC 5 /hpf (0-4); URINE WBC 1 /hpf (0-5)
[2018-07-26] MEDS: oxyCODONE HCL 5 MG TABLET PO PRN ×2 (17:51→21:05)
[2018-07-26] MEDS ORDERED: PIPERACILLIN/TAZOB 4.5 GM 4.5 GM in DEXTROSE 5%-WATER 100 ML IVPB SCH (18:45)
[2018-07-26] MEDS ORDERED: SODIUM CHLORIDE 1,000 ML IV SCH (18:45)
[2018-07-26] MEDS ORDERED: LIDOCAINE HCL 1%, 10 MG/ML (20ML VIAL) ONE (18:50)
--- NOTE | 2018-07-26 18:53 | PN ---
Progress Note (short form) - Note Progress Note: ID consult dictated imp/reccd severe stump pain fevers and chills for two days severe stump infection/abscess needs surgical drainage spoke with Dr Bellamy who is seeing patient now Dr Kraft updated ivf vanco/meropenem/clindamycin f/u cultures - overall 45 minutes spent in coordinating the care of this patient with surgery and the PMD Problem List - Problems (1) Amputation stump infection Code(s): T87.40 - INFECTION OF AMPUTATION STUMP, UNSPECIFIED EXTREMITY (2) Cellulitis of left leg Code(s): L03.116 - CELLULITIS OF LEFT LOWER LIMB (3) Diabetes mellitus Code(s): E11.9 - TYPE 2 DIABETES MELLITUS WITHOUT COMPLICATIONS (4) MRSA (methicillin resistant staph aureus) culture positive Code(s): Z22.322 - CARRIER OR SUSPECTED CARRIER OF METHICILLIN RESIS STAPH
--- NOTE | 2018-07-26 19:10 | PN ---
Progress Note (short form) - Note Progress Note: [facility] Pt seen and examined. Right bka stump with abscess, with active pus draining. I&D of bka stump performed bedside with injection of lidocaine. Cx's taken of abscess. Packed with iodoform packing. ID on board. Will need formal washout on morning. Jose Guadalupe yanez DO
[2018-07-26] MEDS: CLINDAMYCIN 900 MG PREMIX IVPB 900 MG/50 ML BAG IVPB SCH (20:26)
[2018-07-26] MEDS: SODIUM CHLORIDE 1,000 ML IV SCH (20:27)
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
[2018-07-26] MEDS ORDERED: DEXTROSE 5%-WATER 100 ML IVPB ONE (21:14)
[2018-07-26] MEDS ORDERED: MEROPENEM 1 GM VIAL (RESTRICTED TO ID) IVPB ONE (21:14)
[2018-07-26] MEDS: MEROPENEM 1 GM in DEXTROSE 5%-WATER 100 ML IVPB SCH (21:16)
[2018-07-26] MEDS: DOCUSATE SODIUM 100 MG CAPSULE (FP) PO SCH (21:22)
[2018-07-26] MEDS: ATORVASTATIN CA 20 MG TABLET (FP) PO SCH (21:22)
[2018-07-26] MEDS: CALCIUM 500MG/VIT-D 200 UNITS COMBO TABLET (FP) PO SCH (21:22)
[2018-07-26] MEDS: INSULIN (NOVOLOG MIX 70/30) 100 UNITS/ML MDV SQ SCH (21:23)
[2018-07-26] MEDS ORDERED: INSULIN SLIDING SCALE (NOVOLOG) 1 VIAL SQ SCH (22:00)
[2018-07-26] MEDS: VANCOMYCIN HCL 1,500 MG in DEXTROSE 5%-WATER - 500 ML IVPB SCH (22:03)
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
[2018-07-26] MEDS: cloNIDine HCL 0.1 MG TABLET PO SCH (22:07)
[2018-07-26] MEDS: ALPRAZolam 2 MG TABLET PO PRN (22:45)
[2018-07-27] MEDS: oxyCODONE HCL 5 MG TABLET PO PRN ×5 (00:54→21:55)
[2018-07-27] MEDS: ACETAMINOPHEN 325 MG TABLET (FP) PO PRN ×2 (01:30→21:56)
[2018-07-27] MEDS ORDERED: MEROPENEM 1 GM VIAL (RESTRICTED TO ID) IVPB ONE ×3 (02:08→17:01)
[2018-07-27] MEDS ORDERED: DEXTROSE 5%-WATER 100 ML IVPB ONE ×3 (02:09→17:01)
[2018-07-27] MEDS: CLINDAMYCIN 900 MG PREMIX IVPB 900 MG/50 ML BAG IVPB SCH ×3 (02:12→17:14)
[2018-07-27] MEDS: MEROPENEM 1 GM in DEXTROSE 5%-WATER 100 ML IVPB SCH ×3 (02:43→17:14)
[2018-07-27] MEDS: INSULIN SLIDING SCALE (NOVOLOG) 1 VIAL SQ SCH ×4 (06:19→22:04)
[2018-07-27] MEDS: INSULIN (NOVOLOG MIX 70/30) 100 UNITS/ML MDV SQ SCH ×2 (06:19→22:03)
[2018-07-27] MEDS: METOCLOPRAMIDE HCL 10 MG TABLET (FP) PO SCH ×3 (06:25→17:14)
[2018-07-27 07:20] LABS: HEMATOCRIT 32.9 % (35.4-49); MCH 28.4 pg (25.7-33.7); MCHC 33.5 g/dl (32.0-35.9); MEAN CELL VOLUME 84.8 fl (80-96); MEAN PLT VOLUME 10.2 fl (7.5-11.1); PLATELET COUNT 143 K/MM3 (134-434); RBC 3.88 M/mm3 (4.00-5.60); WHITE BLOOD COUNT 7.7 K/mm3 (4.0-10.0)
[2018-07-27 07:34] LABS: ALBUMIN 2.3 g/dl (3.4-5.0); ALK PHOS 100 U/L (45-117); ANION GAP 7 MMOL/L (8-16); BILIRUBIN,TOTAL 0.8 mg/dL (0.2-1); BLOOD UREA NITROGEN 15 mg/dL (7-18); CALCIUM 8.3 mg/dL (8.5-10.1); CHLORIDE 100 mmol/L (98-107); CO2 28 mmol/L (21-32); CREATININE 1.1 mg/dL (0.55-1.3); GLUCOSE,RANDOM 195 mg/dL (74-106); POTASSIUM 3.9 mmol/L (3.5-5.1); SGOT/AST 47 U/L (15-37); SGPT/ALT 35 U/L (13-61); SODIUM 134 mmol/L (136-145); TOT PROT 5.9 g/dl (6.4-8.2)
--- NOTE | 2018-07-27 09:46 | SPA.PREOP ---
- PRE-OP NOTE Dx: Infected RIGHT BKA stump Planned Procedure: I&D with washout Surgeon: Jose Guadalupe Bellamy, Last Vital Signs Temp Pulse Resp BP Pulse Ox 99.5 F 67 20 124/63 96 07/27/18 05:33 07/27/18 05:33 07/27/18 05:33 07/27/18 05:33 07/26/18 21:00 Lab Results WBC 7.7 K/mm3 (4.0-10.0) 07/27/18 06:00 RBC 3.88 M/mm3 (4.00-5.60) L 07/27/18 06:00 Hgb 11.0 GM/dL (11.7-16.9) L 07/27/18 06:00 Hct 32.9 % (35.4-49) L 07/27/18 06:00 MCV 84.8 fl (80-96) 07/27/18 06:00 MCHC 33.5 g/dl (32.0-35.9) 07/27/18 06:00 RDW 14.0 % (11.9-15.9) 07/27/18 06:00 Plt Count 143 K/MM3 (134-434) 07/27/18 06:00 Sodium 134 mmol/L (136-145) L 07/27/18 06:00 Potassium 3.9 mmol/L (3.5-5.1) 07/27/18 06:00 Chloride 100 mmol/L (98-107) 07/27/18 06:00 Carbon Dioxide 28 mmol/L (21-32) 07/27/18 06:00 Anion Gap 7 MMOL/L (8-16) L 07/27/18 06:00 BUN 15 mg/dL (7-18) 07/27/18 06:00 Creatinine 1.1 mg/dL (0.55-1.3) 07/27/18 06:00 Random Glucose 195 mg/dL (74-106) H 07/27/18 06:00 Calcium 8.3 mg/dL (8.5-10.1) L 07/27/18 06:00 INR 1.21 (0.83-1.09) H 07/26/18 11:30 - IMAGING Chest X-ray: Report Reviewed, Image Reviewed - ASSESSMENT/PLAN 1. Make NPO after midnight except po meds 2. GI/DVT PPX 3. Medical optimization / clearance 4. Type and Screen 5. Consent to be obtained by surgeon after risks, benefits and alternatives discussed with patient and or Health Care Proxy. Visit type - Case Type Case Type: ED Admission - Emergency Emergency Visit: Yes ED Registration Date: 07/26/18 Care time: The patient presented to the Emergency Department on the above date and was hospitalized for further evaluation of their emergent condition. - New patient This patient is new to me today: Yes Date on this admission: 07/27/18
[2018-07-27] MEDS ORDERED: PT OWN MED DRAWER 7, Y5N ONE (10:59)
[2018-07-27] MEDS ORDERED: INSULIN (NOVOLOG) ASPART 100 UNITS/ML 10ML VIAL ONE (11:02)
[2018-07-27] MEDS: amLODIPine BESYLATE 5 MG TABLET (FP) PO SCH (11:04)
[2018-07-27] MEDS: FUROSEMIDE 20 MG TABLET (FP) PO SCH (11:05)
[2018-07-27] MEDS: ASPIRIN 81 MG CHEWABLE TABLETS PO SCH (11:05)
[2018-07-27] MEDS: cloNIDine HCL 0.1 MG TABLET PO SCH (11:05)
[2018-07-27] MEDS: LACTOBACILLUS ACIDOPHILUS 1 TABLET PO SCH (11:05)
[2018-07-27] MEDS: DOCUSATE SODIUM 100 MG CAPSULE (FP) PO SCH (11:05)
[2018-07-27] MEDS: CALCIUM 500MG/VIT-D 200 UNITS COMBO TABLET (FP) PO SCH (11:05)
[2018-07-27] MEDS: POLYETHYLENE GLYCOL 3350 119 GM BTL PO SCH (11:06)
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
[2018-07-27] MEDS: VANCOMYCIN HCL 1,500 MG in DEXTROSE 5%-WATER - 500 ML IVPB SCH (12:12)
[2018-07-27] MEDS: ALPRAZolam 2 MG TABLET PO PRN (12:18)
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
[2018-07-28] MEDS: ALPRAZolam 2 MG TABLET PO PRN ×3 (00:50→22:10)
[2018-07-28] MEDS: VANCOMYCIN HCL 1,500 MG in DEXTROSE 5%-WATER - 500 ML IVPB SCH ×2 (00:50→14:35)
[2018-07-28] MEDS ORDERED: ALPRAZolam 0.25 MG TABLET PO ONE (01:00)
[2018-07-28] MEDS: oxyCODONE HCL 5 MG TABLET PO PRN ×4 (04:16→20:07)
[2018-07-28] MEDS: CLINDAMYCIN 900 MG PREMIX IVPB 900 MG/50 ML BAG IVPB SCH ×2 (05:32→10:58)
[2018-07-28] MEDS: SODIUM CHLORIDE 1,000 ML IV SCH ×2 (05:55→15:45)
[2018-07-28] MEDS: DOCUSATE SODIUM 100 MG CAPSULE (FP) PO SCH ×3 (06:10→22:08)
[2018-07-28] MEDS: CALCIUM 500MG/VIT-D 200 UNITS COMBO TABLET (FP) PO SCH ×3 (06:10→22:08)
[2018-07-28] MEDS: ATORVASTATIN CA 20 MG TABLET (FP) PO SCH ×2 (06:10→22:08)
[2018-07-28] MEDS: cloNIDine HCL 0.1 MG TABLET PO SCH ×3 (06:10→22:08)
[2018-07-28] MEDS ORDERED: MEROPENEM 1 GM VIAL (RESTRICTED TO ID) IVPB ONE ×2 (06:14→16:29)
[2018-07-28] MEDS ORDERED: DEXTROSE 5%-WATER 100 ML IVPB ONE ×2 (06:14→16:29)
[2018-07-28] MEDS: MEROPENEM 1 GM in DEXTROSE 5%-WATER 100 ML IVPB SCH ×3 (06:18→17:14)
[2018-07-28] MEDS: INSULIN SLIDING SCALE (NOVOLOG) 1 VIAL SQ SCH ×4 (06:25→22:17)
[2018-07-28] MEDS: METOCLOPRAMIDE HCL 10 MG TABLET (FP) PO SCH ×3 (07:31→16:34)
[2018-07-28] MEDS: INSULIN (NOVOLOG MIX 70/30) 100 UNITS/ML MDV SQ SCH ×2 (07:31→22:17)
[2018-07-28] MEDS ORDERED: INSULIN (NOVOLOG) ASPART 100 UNITS/ML 10ML VIAL ONE (07:34)
[2018-07-28 07:44] LABS: BASO % 0.5 % (0-2.0); EOS % 1.4 % (0-4.5); HEMATOCRIT 33.2 % (35.4-49); HEMOGLOBIN 11.3 GM/dL (11.7-16.9); LYMPH % 19.3 % (8-40); MCH 28.7 pg (25.7-33.7); MCHC 34.1 g/dl (32.0-35.9); MEAN CELL VOLUME 84.1 fl (80-96); MEAN PLT VOLUME 9.9 fl (7.5-11.1); MONO % 9.6 % (3.8-10.2); NEUT % 69.2 % (42.8-82.8); PLATELET COUNT 177 K/MM3 (134-434); RBC 3.94 M/mm3 (4.00-5.60); WHITE BLOOD COUNT 7.5 K/mm3 (4.0-10.0)
[2018-07-28 07:51] LABS: ANION GAP 6 MMOL/L (8-16); BLOOD UREA NITROGEN 13 mg/dL (7-18); CALCIUM 8.1 mg/dL (8.5-10.1); CHLORIDE 99 mmol/L (98-107); CO2 29 mmol/L (21-32); CREATININE 1.1 mg/dL (0.55-1.3); GLUCOSE,RANDOM 159 mg/dL (74-106); POTASSIUM 3.8 mmol/L (3.5-5.1); SODIUM 133 mmol/L (136-145)
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
[2018-07-28] MEDS ORDERED: PT OWN MED DRAWER 7, Y5N ONE ×2 (10:54→16:43)
[2018-07-28] MEDS: LACTOBACILLUS ACIDOPHILUS 1 TABLET PO SCH (10:58)
[2018-07-28] MEDS: amLODIPine BESYLATE 5 MG TABLET (FP) PO SCH (10:58)
[2018-07-28] MEDS: FUROSEMIDE 20 MG TABLET (FP) PO SCH (10:58)
[2018-07-28] MEDS: ASPIRIN 81 MG CHEWABLE TABLETS PO SCH (10:58)
[2018-07-28] MEDS: POLYETHYLENE GLYCOL 3350 119 GM BTL PO SCH (10:59)
[2018-07-28] MEDS ORDERED: LIDOCAINE HCL 1%, 10 MG/ML (20ML VIAL) ONE (13:24)
[2018-07-28] MEDS ORDERED: MIDAZOLAM HCL 2 MG/2 ML SINGLE DOSE VIAL ONE ×2 (13:40→13:59)
[2018-07-28] MEDS ORDERED: LIDOCAINE HCL 1%, 10 MG/ML (50 mL VIAL) IJ ONE ×2 (13:43)
[2018-07-28] MEDS ORDERED: PROPOFOL 20 ML ONE ×2 (14:01→14:05)
[2018-07-28] MEDS ORDERED: LACTATED RINGERS SOLUTION 1,000 ML IV SCH ×2 (14:45→15:13)
--- NOTE | 2018-07-28 14:45 | OP ---
Operative Note - Note: Operative Date: 07/28/18 Pre-Operative Diagnosis: right bka stump abscess Operation: Insertion of triple lumen catheter. Incision and drainage of right bka stump with washout. Findings: minimal pus Post-Operative Diagnosis: Same as Pre-op Surgeon: Jose Guadalupe Bellamy Anesthesia: Fractional Estimated Blood Loss (mls): 30 Operative Report Dictated: Yes
--- NOTE | 2018-07-28 16:24 | OP ---
DATE OF OPERATION: 07/28/2018 PREOPERATIVE DIAGNOSIS: Right below-knee amputation stump abscess. POSTOPERATIVE DIAGNOSIS: Right below-knee amputation stump abscess. PROCEDURES PERFORMED: 1. Insertion of triple lumen catheter. 2. Incision and drainage of right below-knee amputation stump with washout. SURGEON: Jose Guadalupe Arenas DO ANESTHESIA: Fractional. BLOOD LOSS: 30 mL. INDICATIONS: The patient is a 53-year-old male who came in through the ER with an abscess of his right BKA stump. Two nights ago, at bedside, an incision was made and some of his abscess was alleviated and removed and was drained. However, there is still abscess in his leg, and it needs to be washed out. The patient is a poor IV access and also needs a triple lumen catheter. DESCRIPTION OF PROCEDURE: The patient was consented for the procedures, understanding all risks, benefits and alternatives. The patient was then brought to the operating room and laid on the operating table in the supine manner. We then went ahead and prepped and draped the right neck and chest in a sterile surgical manner. Under ultrasound guidance, we visualized the right internal jugular vein and 5 to 10 mL of lidocaine 1% was placed. We then took our Micropuncture needle and punctured the right internal jugular vein, and a 0.035 floppy guidewire was placed. We then went ahead and removed our needle. We then went ahead and placed our dilator. We then went ahead and placed our triple lumen catheter over the wire, and the wire was removed. All 3 ports were flushed, and the catheter was secured to the skin using 3-0 Vicryl. Biopatch was placed, and Tegaderm was placed. We then went ahead and prepped and draped the right BKA stump in a sterile surgical manner. We then went ahead and injected 15 mL of lidocaine 1% over the stump. We then went ahead and extended our incision using a number 15 blade, and opened the incision wider. We then went ahead and drained out all of the hematoma, and we then went ahead and, using Metzenbaum scissors, debrided away all necrotic tissue. We then went ahead and placed a pulse customer engagement representative inside and irrigated the wound copiously, to make sure that there was no more abscess and there was no more hematoma. At this point we then packed the wound with 1-inch Iodoform packing, 4 x 4's, ABD pads and Kerlix were placed. The patient tolerated the procedure with no complications. The patient was transferred to PACU in stable condition, where a chest x-ray will be obtained. JOSE GUADALUPE ARENAS DO NP/[id number]
[2018-07-28] MEDS ORDERED: CLINDAMYCIN 900 MG PREMIX IVPB 900 MG/50 ML BAG IVPB SCH (18:00)
[2018-07-28] MEDS ORDERED: VANCOMYCIN HCL 1,500 MG in DEXTROSE 5%-WATER - 500 ML IVPB SCH (22:00)
[2018-07-28] MEDS: VANCOMYCIN HCL 1,250 MG in DEXTROSE 5%-WATER - 250 ML IVPB SCH (22:07)
[2018-07-29] MEDS: oxyCODONE HCL 5 MG TABLET PO PRN ×5 (00:26→20:00)
[2018-07-29] MEDS ORDERED: DEXTROSE 5%-WATER 100 ML IVPB ONE (01:59)
[2018-07-29] MEDS ORDERED: MEROPENEM 1 GM VIAL (RESTRICTED TO ID) IVPB ONE (01:59)
[2018-07-29] MEDS: MEROPENEM 1 GM in DEXTROSE 5%-WATER 100 ML IVPB SCH (02:07)
[2018-07-29] MEDS: SODIUM CHLORIDE 1,000 ML IV SCH ×3 (02:08→18:01)
[2018-07-29] MEDS: INSULIN (NOVOLOG MIX 70/30) 100 UNITS/ML MDV SQ SCH ×2 (06:22→21:50)
[2018-07-29] MEDS: INSULIN SLIDING SCALE (NOVOLOG) 1 VIAL SQ SCH ×4 (06:22→21:50)
[2018-07-29] MEDS: METOCLOPRAMIDE HCL 10 MG TABLET (FP) PO SCH ×3 (06:37→18:03)
--- NOTE | 2018-07-29 07:19 | SPA.POSTOP ---
- POST-OP NOTE POD #1 s/p I & D of right bka stump with washout. Insertion of triple lumen catheter. No acute events since surgical procedure per RN notes. Patient resting comfortably. Pain management via prn meds. Denies n/v/f/c, CP or SOB. Last Vital Signs Temp Pulse Resp BP Pulse Ox 96.8 F L 61 20 112/70 100 07/29/18 06:00 07/29/18 06:00 07/29/18 06:00 07/29/18 06:00 07/28/18 21:00 PE Gen: No acute distress. Neck: Rt IJ TLC in place. LE: LLE: chronic venous stasis dermatitis. RLE: BKA stump wound open, fibrinous exudate, periwound erythema, no purulent drainage. No foul odor Problem List - Problems (1) Amputation of right lower extremity below knee Assessment/Plan: 53 yo male admitted with infection to RLE BKA stump. Packing removed and re-dressed during rounds. May benefit from Wound VAC CBC IV ABX per ID Fall precaution Contact precaution --> MRSA f/u wound culture Code(s): Z89.511 - ACQUIRED ABSENCE OF RIGHT LEG BELOW KNEE Visit type - Case Type Case Type: ED Admission - New patient This patient is new to me today: Yes Date on this admission: 07/29/18
[2018-07-29] MEDS: ALPRAZolam 2 MG TABLET PO PRN ×2 (08:17→21:59)
--- NOTE | 2018-07-29 09:16 | PN ---
Progress Note (short form) - Note Progress Note: alert S/P OPERATIVE WASHOUT YESTERDAY WOUND REPACKED BY SURGERY THIS AM- NO PUS no complaints Vital Signs Period Temp Pulse Resp BP Sys/Cross Pulse Ox Last 24 Hr 96.8 F-98.8 F 53-66 16-20 112-157/56-98 100-100 cor-rrr llungs decreased bs at bases abd soft,nt ext dressing Right BKA stump decreased erythema LLE CBC, BMP 07/28/18 06:35 07/28/18 06:35 Microbiology 07/26/18 18:50 Abscess Gram Stain - Final 07/26/18 18:50 Abscess Wound Culture - Final S Aureus 07/26/18 11:30 Blood - Peripheral Venous Blood Culture - Preliminary NO GROWTH OBTAINED AFTER 48 HOURS, INCUBATION TO CONTINUE FOR 3 DAYS. 07/26/18 10:50 Blood - Peripheral Venous Blood Culture - Preliminary NO GROWTH OBTAINED AFTER 48 HOURS, INCUBATION TO CONTINUE FOR 3 DAYS. 07/26/18 14:20 Urine - Urine Clean Catch Urine Culture - Final NO GROWTH OBTAINED a/p severe stump infection/abscess s/p operative debridement MRSA continue vancomycin will need [facility] iv antiibotics-patient is aware f/u vanco trough in am esr/crp to trend IDDM BEV- resolved Problem List - Problems (1) Amputation stump infection Code(s): T87.40 - INFECTION OF AMPUTATION STUMP, UNSPECIFIED EXTREMITY (2) Cellulitis of left leg Code(s): L03.116 - CELLULITIS OF LEFT LOWER LIMB (3) Diabetes mellitus Code(s): E11.9 - TYPE 2 DIABETES MELLITUS WITHOUT COMPLICATIONS (4) MRSA (methicillin resistant staph aureus) culture positive Code(s): Z22.322 - CARRIER OR SUSPECTED CARRIER OF METHICILLIN RESIS STAPH
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
[2018-07-29] MEDS: LACTOBACILLUS ACIDOPHILUS 1 TABLET PO SCH (09:43)
[2018-07-29] MEDS: amLODIPine BESYLATE 5 MG TABLET (FP) PO SCH (09:43)
[2018-07-29] MEDS: ASPIRIN 81 MG CHEWABLE TABLETS PO SCH (09:43)
[2018-07-29] MEDS: CALCIUM 500MG/VIT-D 200 UNITS COMBO TABLET (FP) PO SCH ×2 (09:44→21:50)
[2018-07-29] MEDS: POLYETHYLENE GLYCOL 3350 119 GM BTL PO SCH (09:44)
[2018-07-29] MEDS: VANCOMYCIN HCL 1,250 MG in DEXTROSE 5%-WATER - 250 ML IVPB SCH ×2 (09:44→23:39)
[2018-07-29] MEDS: DOCUSATE SODIUM 100 MG CAPSULE (FP) PO SCH ×2 (09:51→21:50)
[2018-07-29] MEDS: cloNIDine HCL 0.1 MG TABLET PO SCH ×2 (09:51→21:49)
[2018-07-29] MEDS: FUROSEMIDE 20 MG TABLET (FP) PO SCH (09:52)
[2018-07-29] MEDS ORDERED: PT OWN MED DRAWER 7, Y5N ONE (11:50)
--- NOTE | 2018-07-29 14:35 | PN ---
Progress Note (short form) - Note Progress Note: POST OP DAY#1.S/P I&D OF RIGHT BKA UNDER MAC UNEVENTFUL.PATIENT STABLE.NO ANY ANESTHESIA RELATED PROBLEM.PATIENT DC FROM THE ANESTHESIA CARE.
[2018-07-29 14:48] VITALS: BMI 41.8
[2018-07-29] MEDS: ATORVASTATIN CA 20 MG TABLET (FP) PO SCH (21:50)
[2018-07-30] MEDS: oxyCODONE HCL 5 MG TABLET PO PRN ×5 (01:35→20:07)
[2018-07-30] MEDS: ALPRAZolam 2 MG TABLET PO PRN ×2 (06:06→21:46)
[2018-07-30] MEDS: INSULIN (NOVOLOG MIX 70/30) 100 UNITS/ML MDV SQ SCH ×2 (07:05→21:44)
[2018-07-30] MEDS: INSULIN SLIDING SCALE (NOVOLOG) 1 VIAL SQ SCH ×4 (07:05→21:44)
[2018-07-30] MEDS: METOCLOPRAMIDE HCL 10 MG TABLET (FP) PO SCH ×3 (07:09→16:13)
[2018-07-30 08:20] LABS: BASO % 0.4 % (0-2.0); EOS % 2.8 % (0-4.5); HEMATOCRIT 34.1 % (35.4-49); HEMOGLOBIN 11.6 GM/dL (11.7-16.9); LYMPH % 23.4 % (8-40); MCH 28.8 pg (25.7-33.7); MEAN CELL VOLUME 84.9 fl (80-96); MEAN PLT VOLUME 9.1 fl (7.5-11.1); NEUT % 63.4 % (42.8-82.8); PLATELET COUNT 215 K/MM3 (134-434); RBC 4.02 M/mm3 (4.00-5.60); RDW 14.2 % (11.9-15.9); WHITE BLOOD COUNT 6.8 K/mm3 (4.0-10.0)
[2018-07-30 08:43] LABS: ANION GAP 5 MMOL/L (8-16); BLOOD UREA NITROGEN 12 mg/dL (7-18); CALCIUM 8.6 mg/dL (8.5-10.1); CHLORIDE 102 mmol/L (98-107); CO2 29 mmol/L (21-32); CREATININE 0.8 mg/dL (0.55-1.3); GLUCOSE,RANDOM 78 mg/dL (74-106); POTASSIUM 4.1 mmol/L (3.5-5.1); SODIUM 136 mmol/L (136-145)
[2018-07-30] MEDS ORDERED: PT OWN MED DRAWER 7, Y5N ONE ×2 (09:39→21:37)
[2018-07-30] MEDS: cloNIDine HCL 0.1 MG TABLET PO SCH ×2 (10:00→21:46)
[2018-07-30] MEDS: LACTOBACILLUS ACIDOPHILUS 1 TABLET PO SCH (10:06)
[2018-07-30] MEDS: CALCIUM 500MG/VIT-D 200 UNITS COMBO TABLET (FP) PO SCH ×2 (10:06→21:46)
[2018-07-30] MEDS: FUROSEMIDE 20 MG TABLET (FP) PO SCH (10:07)
[2018-07-30] MEDS: DOCUSATE SODIUM 100 MG CAPSULE (FP) PO SCH ×2 (10:07→21:46)
[2018-07-30] MEDS: POLYETHYLENE GLYCOL 3350 119 GM BTL PO SCH ×2 (10:08→10:17)
[2018-07-30] MEDS: ASPIRIN 81 MG CHEWABLE TABLETS PO SCH (10:08)
[2018-07-30] MEDS: amLODIPine BESYLATE 5 MG TABLET (FP) PO SCH (10:08)
[2018-07-30] MEDS: VANCOMYCIN HCL 1,250 MG in DEXTROSE 5%-WATER - 250 ML IVPB SCH ×2 (10:47→21:51)
[2018-07-30] MEDS ORDERED: INSULIN (NOVOLOG) ASPART 100 UNITS/ML 10ML VIAL ONE (11:33)
[2018-07-30] MEDS: SODIUM CHLORIDE 1,000 ML IV SCH (16:06)
[2018-07-30] MEDS: ATORVASTATIN CA 20 MG TABLET (FP) PO SCH (21:51)
--- NOTE | 2018-07-30 22:06 | PN ---
Progress Note, Physician - Current Medication List Current Medications: Active Medications Acetaminophen (Tylenol -) 650 mg PO Q4H PRN PRN Reason: FEVER Alprazolam (Xanax -) 2 mg PO Q6H PRN PRN Reason: ANXIETY Last Admin: 07/30/18 21:46 Dose: 2 mg Amlodipine Besylate (Norvasc -) 5 mg PO DAILY [facility] Last Admin: 07/30/18 10:08 Dose: 5 mg Aspirin (Asa -) 81 mg PO DAILY [facility] Last Admin: 07/30/18 10:08 Dose: 81 mg Atorvastatin Calcium (Lipitor -) 20 mg PO HS [facility] Last Admin: 07/30/18 21:51 Dose: 20 mg Calcium Carbonate/Cholecalciferol (Os-Tra 500+D -) 1 tab PO BID [facility] Last Admin: 07/30/18 21:46 Dose: 1 tab Clonidine (Catapres -) 0.2 mg PO BID [facility] Last Admin: 07/30/18 21:46 Dose: 0.2 mg Docusate Sodium (Colace -) 100 mg PO BID [facility] Last Admin: 07/30/18 21:46 Dose: 100 mg Furosemide (Lasix -) 20 mg PO DAILY [facility] Last Admin: 07/30/18 10:07 Dose: 20 mg Sodium Chloride (Normal Saline -) 1,000 mls @ 150 mls/hr IV ASDIR [facility] Last Admin: 07/30/18 16:06 Dose: 150 mls/hr Vancomycin HCl 1,250 mg/ (Dextrose) 250 mls @ 166.667 mls/hr IVPB BID [facility]; Protocol Last Admin: 07/30/18 21:51 Dose: 166.667 mls/hr Insulin Aspart (Novolog Mix 70/30 Vial) 60 units SQ BID@0700,2200 [facility] Last Admin: 07/30/18 21:44 Dose: 60 unit Insulin Aspart (Novolog Vial Sliding Scale -) 1 vial SQ ACHS [facility]; Protocol Last Admin: 07/30/18 21:44 Dose: 10 units Lactobacillus Acidophilus (Bacid -) 1 tab PO DAILY [facility] Last Admin: 07/30/18 10:06 Dose: 1 tab Metoclopramide HCl (Reglan -) 10 mg PO TIDAC [facility] Last Admin: 07/30/18 16:13 Dose: 10 mg Oxycodone HCl (Roxicodone -) 30 mg PO Q3H PRN PRN Reason: PAIN LEVEL 4 - 6 Last Admin: 07/30/18 20:07 Dose: 30 mg Polyethylene Glycol (Miralax (For Daily Use) -) 17 gm PO DAILY [facility] Last Admin: 07/30/18 10:17 Dose: Not Given - Objective Vital Signs: Vital Signs Temperature 98 F 07/30/18 20:13 Pulse Rate 72 07/30/18 20:13 Respiratory Rate 18 07/30/18 20:13 Blood Pressure 159/95 07/30/18 20:13 O2 Sat by Pulse Oximetry (%) 98 07/30/18 09:00 Labs: CBC, BMP 07/30/18 07:30 07/30/18 07:30 INR, PTT INR 1.21 (0.83-1.09) H 07/26/18 11:30
[2018-07-31] MEDS: oxyCODONE HCL 5 MG TABLET PO PRN ×4 (02:23→19:44)
[2018-07-31] MEDS: ALPRAZolam 2 MG TABLET PO PRN ×3 (05:50→22:37)
[2018-07-31] MEDS: INSULIN SLIDING SCALE (NOVOLOG) 1 VIAL SQ SCH ×4 (06:52→22:37)
[2018-07-31] MEDS: INSULIN (NOVOLOG MIX 70/30) 100 UNITS/ML MDV SQ SCH ×2 (06:53→22:38)
[2018-07-31] MEDS: METOCLOPRAMIDE HCL 10 MG TABLET (FP) PO SCH ×3 (06:55→17:50)
[2018-07-31] MEDS: ASPIRIN 81 MG CHEWABLE TABLETS PO SCH (09:14)
[2018-07-31] MEDS: FUROSEMIDE 20 MG TABLET (FP) PO SCH (09:15)
[2018-07-31] MEDS: CALCIUM 500MG/VIT-D 200 UNITS COMBO TABLET (FP) PO SCH ×2 (09:15→22:37)
[2018-07-31] MEDS: cloNIDine HCL 0.1 MG TABLET PO SCH ×2 (09:15→22:37)
[2018-07-31] MEDS: amLODIPine BESYLATE 5 MG TABLET (FP) PO SCH (09:15)
[2018-07-31] MEDS: LACTOBACILLUS ACIDOPHILUS 1 TABLET PO SCH (09:15)
[2018-07-31] MEDS: DOCUSATE SODIUM 100 MG CAPSULE (FP) PO SCH ×2 (09:15→22:37)
[2018-07-31] MEDS: POLYETHYLENE GLYCOL 3350 119 GM BTL PO SCH (09:16)
[2018-07-31] MEDS: SODIUM CHLORIDE 1,000 ML IV SCH ×2 (10:56→17:55)
[2018-07-31] MEDS: VANCOMYCIN HCL 1,250 MG in DEXTROSE 5%-WATER - 250 ML IVPB SCH (10:56)
--- NOTE | 2018-07-31 11:31 | PN ---
Progress Note (short form) - Note Progress Note: alert vac has been placed no complaints Vital Signs Period Temp Pulse Resp BP Sys/Cross Pulse Ox Last 24 Hr 98 F-98.6 F 65-72 18-20 149-179/67-95 98 cor-rrr lungs clear abd soft,nt ext vac in place, rle no erythema +eschar CBC, BMP 07/30/18 07:30 07/30/18 07:30 Microbiology 07/26/18 10:50 Blood - Peripheral Venous Blood Culture - Final NO GROWTH AFTER 5 DAYS INCUBATION 07/26/18 11:30 Blood - Peripheral Venous Blood Culture - Preliminary NO GROWTH OBTAINED AFTER 96 HOURS, INCUBATION TO CONTINUE FOR 1 DAYS. 07/26/18 18:50 Abscess Gram Stain - Final 07/26/18 18:50 Abscess Wound Culture - Final Mr S Aureus 07/26/18 14:20 Urine - Urine Clean Catch Urine Culture - Final NO GROWTH OBTAINED a/p severe stump infection/abscess-MRSA s/p operative debridement continue vancomycin will need senior living iv antiibotics-patient is aware-agreeable to [facility] placement plan 6 weeks iv [id number]-[id number]-sqq need longer trend esr/crp decrease vanco dosing IDDM BEV- resolved Laboratory Tests 07/30/18 07/30/18 07/30/18 07:30 07:30 08:15 ESR 64 H C-Reactive Protein 4.7 H Vancomycin Pre-Dose 20.3 if patient followup up at wound care center with dr yanez, we can see him there as well thanks Problem List - Problems (1) Amputation stump infection Code(s): T87.40 - INFECTION OF AMPUTATION STUMP, UNSPECIFIED EXTREMITY (2) Cellulitis of left leg Code(s): L03.116 - CELLULITIS OF LEFT LOWER LIMB (3) Diabetes mellitus Code(s): E11.9 - TYPE 2 DIABETES MELLITUS WITHOUT COMPLICATIONS (4) MRSA (methicillin resistant staph aureus) culture positive Code(s): Z22.322 - CARRIER OR SUSPECTED CARRIER OF METHICILLIN RESIS STAPH
--- NOTE | 2018-07-31 21:43 | PN ---
Progress Note, Physician - Current Medication List Current Medications: Active Medications Acetaminophen (Tylenol -) 650 mg PO Q4H PRN PRN Reason: FEVER Alprazolam (Xanax -) 2 mg PO Q6H PRN PRN Reason: ANXIETY Last Admin: 07/31/18 12:33 Dose: 2 mg Amlodipine Besylate (Norvasc -) 5 mg PO DAILY [facility] Last Admin: 07/31/18 09:15 Dose: 5 mg Aspirin (Asa -) 81 mg PO DAILY [facility] Last Admin: 07/31/18 09:14 Dose: 81 mg Atorvastatin Calcium (Lipitor -) 20 mg PO HS [facility] Last Admin: 07/30/18 21:51 Dose: 20 mg Calcium Carbonate/Cholecalciferol (Os-Tra 500+D -) 1 tab PO BID [facility] Last Admin: 07/31/18 09:15 Dose: 1 tab Clonidine (Catapres -) 0.2 mg PO BID [facility] Last Admin: 07/31/18 09:15 Dose: 0.2 mg Docusate Sodium (Colace -) 100 mg PO BID [facility] Last Admin: 07/31/18 09:15 Dose: 100 mg Furosemide (Lasix -) 20 mg PO DAILY [facility] Last Admin: 07/31/18 09:15 Dose: 20 mg Sodium Chloride (Normal Saline -) 1,000 mls @ 150 mls/hr IV ASDIR [facility] Last Admin: 07/31/18 17:55 Dose: Not Given Vancomycin HCl (Vancomycin 1 Gm Premix -) 1 gm in 200 mls @ 166.667 mls/hr IVPB BID [facility]; Protocol Insulin Aspart (Novolog Mix 70/30 Vial) 60 units SQ BID@0700,2200 [facility] Last Admin: 07/31/18 06:53 Dose: Not Given Insulin Aspart (Novolog Vial Sliding Scale -) 1 vial SQ ACHS [facility]; Protocol Last Admin: 07/31/18 17:54 Dose: 6 units Lactobacillus Acidophilus (Bacid -) 1 tab PO DAILY [facility] Last Admin: 07/31/18 09:15 Dose: 1 tab Metoclopramide HCl (Reglan -) 10 mg PO TIDAC [facility] Last Admin: 07/31/18 17:50 Dose: 10 mg Oxycodone HCl (Roxicodone -) 30 mg PO Q3H PRN PRN Reason: PAIN LEVEL 4 - 6 Last Admin: 07/31/18 19:44 Dose: 30 mg Polyethylene Glycol (Miralax (For Daily Use) -) 17 gm PO DAILY [facility] Last Admin: 07/31/18 09:16 Dose: Not Given - Objective Vital Signs: Vital Signs Temperature 98.0 F 07/31/18 19:00 Pulse Rate 66 07/31/18 19:00 Respiratory Rate 22 H 07/31/18 19:00 Blood Pressure 180/80 H 07/31/18 19:00 O2 Sat by Pulse Oximetry (%) 98 07/31/18 09:00 Labs: CBC, BMP 07/30/18 07:30 07/30/18 07:30 INR, PTT INR 1.21 (0.83-1.09) H 07/26/18 11:30
[2018-07-31] MEDS: ATORVASTATIN CA 20 MG TABLET (FP) PO SCH (22:37)
[2018-07-31] MEDS: VANCOMYCIN 1 GM PREMIX - 1 GM/200 ML BAG IVPB SCH (23:24)
[2018-08-01] MEDS: oxyCODONE HCL 5 MG TABLET PO PRN ×4 (04:42→21:35)
[2018-08-01] MEDS: METOCLOPRAMIDE HCL 10 MG TABLET (FP) PO SCH ×3 (06:14→16:50)
[2018-08-01] MEDS: INSULIN SLIDING SCALE (NOVOLOG) 1 VIAL SQ SCH ×4 (06:14→21:40)
[2018-08-01] MEDS: INSULIN (NOVOLOG MIX 70/30) 100 UNITS/ML MDV SQ SCH ×2 (06:15→21:41)
[2018-08-01] MEDS: ALPRAZolam 2 MG TABLET PO PRN ×2 (07:53→16:50)
[2018-08-01] MEDS ORDERED: PT OWN MED DRAWER 7, Y5N ONE ×2 (11:13→21:31)
[2018-08-01] MEDS: LACTOBACILLUS ACIDOPHILUS 1 TABLET PO SCH (11:26)
[2018-08-01] MEDS: cloNIDine HCL 0.1 MG TABLET PO SCH ×2 (11:27→21:35)
[2018-08-01] MEDS: POLYETHYLENE GLYCOL 3350 119 GM BTL PO SCH (11:27)
[2018-08-01] MEDS: FUROSEMIDE 20 MG TABLET (FP) PO SCH (11:27)
[2018-08-01] MEDS: DOCUSATE SODIUM 100 MG CAPSULE (FP) PO SCH ×2 (11:27→21:35)
[2018-08-01] MEDS: CALCIUM 500MG/VIT-D 200 UNITS COMBO TABLET (FP) PO SCH ×2 (11:27→21:35)
[2018-08-01] MEDS: amLODIPine BESYLATE 5 MG TABLET (FP) PO SCH (11:27)
[2018-08-01] MEDS: ASPIRIN 81 MG CHEWABLE TABLETS PO SCH (11:28)
[2018-08-01] MEDS: VANCOMYCIN 1 GM PREMIX - 1 GM/200 ML BAG IVPB SCH ×2 (13:11→21:35)
[2018-08-01] MEDS: SODIUM CHLORIDE 1,000 ML IV SCH (19:03)
[2018-08-01] MEDS: ATORVASTATIN CA 20 MG TABLET (FP) PO SCH (21:35)
--- NOTE | 2018-08-01 23:02 | PN ---
Progress Note, Physician - Current Medication List Current Medications: Active Medications Acetaminophen (Tylenol -) 650 mg PO Q4H PRN PRN Reason: FEVER Amlodipine Besylate (Norvasc -) 5 mg PO DAILY [facility] Last Admin: 08/01/18 11:27 Dose: 5 mg Aspirin (Asa -) 81 mg PO DAILY [facility] Last Admin: 08/01/18 11:28 Dose: 81 mg Atorvastatin Calcium (Lipitor -) 20 mg PO HS [facility] Last Admin: 08/01/18 21:35 Dose: 20 mg Calcium Carbonate/Cholecalciferol (Os-Tra 500+D -) 1 tab PO BID [facility] Last Admin: 08/01/18 21:35 Dose: 1 tab Clonidine (Catapres -) 0.2 mg PO BID [facility] Last Admin: 08/01/18 21:35 Dose: 0.2 mg Docusate Sodium (Colace -) 100 mg PO BID [facility] Last Admin: 08/01/18 21:35 Dose: 100 mg Furosemide (Lasix -) 20 mg PO DAILY [facility] Last Admin: 08/01/18 11:27 Dose: 20 mg Sodium Chloride (Normal Saline -) 1,000 mls @ 150 mls/hr IV ASDIR [facility] Last Admin: 08/01/18 19:03 Dose: Not Given Vancomycin HCl (Vancomycin 1 Gm Premix -) 1 gm in 200 mls @ 166.667 mls/hr IVPB BID [facility]; Protocol Last Admin: 08/01/18 21:35 Dose: 166.667 mls/hr Insulin Aspart (Novolog Mix 70/30 Vial) 60 units SQ BID@0700,2200 [facility] Last Admin: 08/01/18 21:41 Dose: 60 unit Insulin Aspart (Novolog Vial Sliding Scale -) 1 vial SQ ACHS [facility]; Protocol Last Admin: 08/01/18 21:40 Dose: 6 units Lactobacillus Acidophilus (Bacid -) 1 tab PO DAILY [facility] Last Admin: 08/01/18 11:26 Dose: 1 tab Metoclopramide HCl (Reglan -) 10 mg PO TIDAC [facility] Last Admin: 08/01/18 16:50 Dose: 10 mg Polyethylene Glycol (Miralax (For Daily Use) -) 17 gm PO DAILY [facility] Last Admin: 08/01/18 11:27 Dose: Not Given - Objective Vital Signs: Vital Signs Temperature 98.0 F 08/01/18 17:54 Pulse Rate 68 08/01/18 17:54 Respiratory Rate 20 08/01/18 17:54 Blood Pressure 153/95 08/01/18 17:54 O2 Sat by Pulse Oximetry (%) 98 08/01/18 09:00 Labs: CBC, BMP 07/30/18 07:30 07/30/18 07:30 INR, PTT INR 1.21 (0.83-1.09) H 07/26/18 11:30
[2018-08-02] MEDS: ALPRAZolam 2 MG TABLET PO PRN ×3 (00:02→21:49)
--- NOTE | 2018-08-02 00:08 | HOSP ---
Subjective - Review of Symptoms Events since last encounter: Nurse reports pt was agitated and partially fell out of bed. There were no witnesses to fall. Upon interviewing the patient, he reports rolling over in bed, and partially falling out due to right side rail being down. He hit his right elbow on the chair next to bed and reports soreness at the affected site. Pt offers no other complaints and is requesting that the nurse dose his Xanax so he can sleep. On exam, pt has full ROM of RUE, there is no swelling. He is alert and oriented without any acute neuro deficits. X-ray right elbow ordered. Primary team to see patient in the morning. Physical Examination Vital Signs: Vital Signs Temperature 98.0 F 08/01/18 17:54 Pulse Rate 68 08/01/18 17:54 Respiratory Rate 20 08/01/18 17:54 Blood Pressure 153/95 08/01/18 17:54 O2 Sat by Pulse Oximetry (%) 98 08/01/18 09:00 Labs: CBC, BMP 07/30/18 07:30 07/30/18 07:30
[2018-08-02] MEDS: ACETAMINOPHEN 325 MG TABLET (FP) PO PRN ×2 (05:25→10:27)
[2018-08-02] MEDS: oxyCODONE HCL 5 MG TABLET PO PRN ×4 (06:16→19:56)
[2018-08-02] MEDS: METOCLOPRAMIDE HCL 10 MG TABLET (FP) PO SCH ×3 (06:16→16:07)
[2018-08-02] MEDS: INSULIN SLIDING SCALE (NOVOLOG) 1 VIAL SQ SCH ×4 (06:21→21:45)
[2018-08-02] MEDS: INSULIN (NOVOLOG MIX 70/30) 100 UNITS/ML MDV SQ SCH ×2 (07:00→21:47)
--- NOTE | 2018-08-02 08:13 | PN ---
Progress Note (short form) - Note Progress Note: surgery POD #5 right bka stump abscess, Insertion of triple lumen catheter. Incision and drainage of right bka stump with washout. Patient now with wound Vac changed yesterday (M,W,F). Patient states he feels well overall he denies any CP , SOB, N/V, or fevers. Patient is awaiting d/c to rehab. Vital Signs Temp 98.0 F 08/02/18 06:12 Pulse 62 08/02/18 06:12 Resp 18 08/02/18 06:12 BP 170/82 08/02/18 06:12 Pulse Ox 98 08/01/18 21:00 Intake & Output 08/01/18 08/01/18 08/02/18 11:59 23:59 11:59 Intake Total 700 2150 Output Total 380 1500 800 Balance 320 650 -800 Intake: IV 450 750 Normal Saline - 1,000ml @ 450 750 75mls/hr IV ASDIR PRICE IVPB 250 500 Oral 900 Output: Urine 380 1500 800 Void 380 1500 800 Other: Voiding Method Urinal Urinal Urinal # Unmeasured Voids Void 1 Bowel Movement No No PE: A&Ox3, NAD unlabored resp on RA right stump with wound vac in place, no evidence of air leaks. Stump soft, supple, warm and well perfused, surrounding tissue intact with no tracking erythema, or edema. Problem List - Problems (1) Amputation stump infection Assessment/Plan: POD #5 stump washout now with wound vac doing well. 1) continue wound vac as ordered M,W,F 2) IV ABX per ID 3) offload pressure sensitive areas 4) d/c planning for rehab per medicine Code(s): T87.40 - INFECTION OF AMPUTATION STUMP, UNSPECIFIED EXTREMITY
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
[2018-08-02] MEDS: DOCUSATE SODIUM 100 MG CAPSULE (FP) PO SCH ×2 (10:25→21:37)
[2018-08-02] MEDS: amLODIPine BESYLATE 5 MG TABLET (FP) PO SCH (10:25)
[2018-08-02] MEDS: ASPIRIN 81 MG CHEWABLE TABLETS PO SCH (10:25)
[2018-08-02] MEDS: cloNIDine HCL 0.1 MG TABLET PO SCH ×2 (10:25→21:37)
[2018-08-02] MEDS: CALCIUM 500MG/VIT-D 200 UNITS COMBO TABLET (FP) PO SCH ×2 (10:26→21:38)
[2018-08-02] MEDS: LACTOBACILLUS ACIDOPHILUS 1 TABLET PO SCH (10:26)
[2018-08-02] MEDS: VANCOMYCIN 1 GM PREMIX - 1 GM/200 ML BAG IVPB SCH ×2 (10:28→21:40)
[2018-08-02] MEDS: FUROSEMIDE 20 MG TABLET (FP) PO SCH (11:30)
[2018-08-02] MEDS: POLYETHYLENE GLYCOL 3350 119 GM BTL PO SCH (11:32)
[2018-08-02] MEDS ORDERED: PT OWN MED DRAWER 7, Y5N ONE (17:11)
--- NOTE | 2018-08-02 17:23 | PN ---
Progress Note (short form) - Note Progress Note: alert vac has been placed no complaints Vital Signs Period Temp Pulse Resp BP Sys/Cross Pulse Ox Last 24 Hr 97.9 F-98.9 F 56-78 18-20 131-170/58-95 98-98 cor-rrr lungs clear abd soft,nt ext vac in place RLE dry eschar- no erythema CBC, BMP 07/30/18 07:30 07/30/18 07:30 Microbiology 07/26/18 11:30 Blood - Peripheral Venous Blood Culture - Final NO GROWTH AFTER 5 DAYS INCUBATION 07/26/18 10:50 Blood - Peripheral Venous Blood Culture - Final NO GROWTH AFTER 5 DAYS INCUBATION 07/26/18 18:50 Abscess Gram Stain - Final 07/26/18 18:50 Abscess Wound Culture - Final S Aureus 07/26/18 14:20 Urine - Urine Clean Catch Urine Culture - Final NO GROWTH OBTAINED Current Medications Acetaminophen (Tylenol -) 650 mg PO Q4H PRN PRN Reason: FEVER Last Admin: 08/02/18 10:27 Dose: 650 mg Alprazolam (Xanax -) 2 mg PO Q6H PRN PRN Reason: ANXIETY Last Admin: 08/02/18 12:29 Dose: 2 mg Amlodipine Besylate (Norvasc -) 5 mg PO DAILY [facility] Last Admin: 08/02/18 10:25 Dose: 5 mg Aspirin (Asa -) 81 mg PO DAILY [facility] Last Admin: 08/02/18 10:25 Dose: 81 mg Atorvastatin Calcium (Lipitor -) 20 mg PO HS [facility] Last Admin: 08/01/18 21:35 Dose: 20 mg Calcium Carbonate/Cholecalciferol (Os-Tra 500+D -) 1 tab PO BID [facility] Last Admin: 08/02/18 10:26 Dose: 1 tab Clonidine (Catapres -) 0.2 mg PO BID [facility] Last Admin: 08/02/18 10:25 Dose: 0.2 mg Docusate Sodium (Colace -) 100 mg PO BID [facility] Last Admin: 08/02/18 10:25 Dose: 100 mg Furosemide (Lasix -) 20 mg PO DAILY [facility] Last Admin: 08/02/18 11:30 Dose: 20 mg Sodium Chloride (Normal Saline -) 1,000 mls @ 150 mls/hr IV ASDIR [facility] Last Admin: 08/01/18 19:03 Dose: Not Given Vancomycin HCl (Vancomycin 1 Gm Premix -) 1 gm in 200 mls @ 166.667 mls/hr IVPB BID [facility]; Protocol Last Admin: 08/02/18 10:28 Dose: 166.667 mls/hr Insulin Aspart (Novolog Mix 70/30 Vial) 60 units SQ BID@0700,2200 [facility] Last Admin: 08/02/18 07:00 Dose: 60 unit Insulin Aspart (Novolog Vial Sliding Scale -) 1 vial SQ ACHS [facility]; Protocol Last Admin: 08/02/18 16:06 Dose: Not Given Lactobacillus Acidophilus (Bacid -) 1 tab PO DAILY [facility] Last Admin: 08/02/18 10:26 Dose: 1 tab Metoclopramide HCl (Reglan -) 10 mg PO TIDAC [facility] Last Admin: 08/02/18 16:07 Dose: 10 mg Oxycodone HCl (Roxicodone -) 30 mg PO Q3H PRN PRN Reason: PAIN LEVEL 4 - 6 Last Admin: 08/02/18 16:04 Dose: 30 mg Polyethylene Glycol (Miralax (For Daily Use) -) 17 gm PO DAILY [facility] Last Admin: 08/02/18 11:32 Dose: Not Given a/p severe stump infection/abscess-MRSA s/p operative debridement continue vancomycin will need long term iv antiibotics-patient is aware-agreeable to [facility] placement plan 6 weeks iv [id number] need longer trend esr/crp vanco trough ordered for am IDDM BEV- resolved if patient followup up at wound care center with dr yanez, we can see him there as well thanks Problem List - Problems (1) Amputation stump infection Code(s): T87.40 - INFECTION OF AMPUTATION STUMP, UNSPECIFIED EXTREMITY (2) Cellulitis of left leg Code(s): L03.116 - CELLULITIS OF LEFT LOWER LIMB (3) Diabetes mellitus Code(s): E11.9 - TYPE 2 DIABETES MELLITUS WITHOUT COMPLICATIONS (4) MRSA (methicillin resistant staph aureus) culture positive Code(s): Z22.322 - CARRIER OR SUSPECTED CARRIER OF METHICILLIN RESIS STAPH
[2018-08-02] MEDS: SODIUM CHLORIDE 1,000 ML IV SCH (18:27)
[2018-08-02] MEDS: ATORVASTATIN CA 20 MG TABLET (FP) PO SCH (21:37)
[2018-08-03] MEDS: oxyCODONE HCL 5 MG TABLET PO PRN ×5 (04:23→23:43)
[2018-08-03] MEDS: METOCLOPRAMIDE HCL 10 MG TABLET (FP) PO SCH ×3 (06:15→16:20)
[2018-08-03] MEDS: INSULIN SLIDING SCALE (NOVOLOG) 1 VIAL SQ SCH ×4 (06:18→22:31)
[2018-08-03] MEDS: INSULIN (NOVOLOG MIX 70/30) 100 UNITS/ML MDV SQ SCH ×2 (08:56→22:31)
[2018-08-03] MEDS: ALPRAZolam 2 MG TABLET PO PRN ×2 (09:28→22:30)
[2018-08-03] MEDS: LACTOBACILLUS ACIDOPHILUS 1 TABLET PO SCH (09:28)
[2018-08-03] MEDS: amLODIPine BESYLATE 5 MG TABLET (FP) PO SCH (09:28)
[2018-08-03] MEDS: cloNIDine HCL 0.1 MG TABLET PO SCH ×2 (09:28→22:30)
[2018-08-03] MEDS: DOCUSATE SODIUM 100 MG CAPSULE (FP) PO SCH ×2 (09:29→22:30)
[2018-08-03] MEDS: FUROSEMIDE 20 MG TABLET (FP) PO SCH (09:30)
[2018-08-03] MEDS: CALCIUM 500MG/VIT-D 200 UNITS COMBO TABLET (FP) PO SCH ×2 (09:32→22:30)
[2018-08-03] MEDS: POLYETHYLENE GLYCOL 3350 119 GM BTL PO SCH (11:17)
[2018-08-03] MEDS: ASPIRIN 81 MG CHEWABLE TABLETS PO SCH (11:52)
[2018-08-03] MEDS: VANCOMYCIN 1 GM PREMIX - 1 GM/200 ML BAG IVPB SCH ×2 (13:35→22:30)
[2018-08-03] MEDS: SODIUM CHLORIDE 1,000 ML IV SCH ×2 (18:16→22:29)
[2018-08-03] MEDS ORDERED: PT OWN MED DRAWER 7, Y5N ONE (22:22)
[2018-08-03] MEDS: ATORVASTATIN CA 20 MG TABLET (FP) PO SCH (22:30)
[2018-08-03] MEDS ORDERED: INSULIN (NOVOLOG MIX 70/30) 100 UNITS/ML MDV SQ ONE (22:53)
[2018-08-04] MEDS: oxyCODONE HCL 5 MG TABLET PO PRN ×4 (03:33→16:24)
[2018-08-04] MEDS: METOCLOPRAMIDE HCL 10 MG TABLET (FP) PO SCH ×3 (06:35→16:27)
[2018-08-04] MEDS: INSULIN (NOVOLOG MIX 70/30) 100 UNITS/ML MDV SQ SCH (06:37)
[2018-08-04] MEDS: INSULIN SLIDING SCALE (NOVOLOG) 1 VIAL SQ SCH ×3 (06:37→16:26)
[2018-08-04 07:21] LABS: BASO % 0.6 % (0-2.0); EOS % 2.3 % (0-4.5); HEMOGLOBIN 12.3 GM/dL (11.7-16.9); LYMPH % 29.8 % (8-40); MCH 28.1 pg (25.7-33.7); MCHC 33.2 g/dl (32.0-35.9); MEAN CELL VOLUME 84.5 fl (80-96); MEAN PLT VOLUME 8.5 fl (7.5-11.1); MONO % 6.5 % (3.8-10.2); NEUT % 60.8 % (42.8-82.8); PLATELET COUNT 249 K/MM3 (134-434); RBC 4.38 M/mm3 (4.00-5.60); RDW 14.5 % (11.9-15.9); WHITE BLOOD COUNT 8.6 K/mm3 (4.0-10.0)
[2018-08-04 07:52] LABS: ANION GAP 5 MMOL/L (8-16); BLOOD UREA NITROGEN 19 mg/dL (7-18); CALCIUM 8.9 mg/dL (8.5-10.1); CHLORIDE 103 mmol/L (98-107); CO2 29 mmol/L (21-32); CREATININE 1.1 mg/dL (0.55-1.3); GLUCOSE,RANDOM 69 mg/dL (74-106); POTASSIUM 3.6 mmol/L (3.5-5.1); SODIUM 137 mmol/L (136-145)
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
[2018-08-04] MEDS: CALCIUM 500MG/VIT-D 200 UNITS COMBO TABLET (FP) PO SCH (09:41)
[2018-08-04] MEDS: DOCUSATE SODIUM 100 MG CAPSULE (FP) PO SCH (09:41)
[2018-08-04] MEDS: ASPIRIN 81 MG CHEWABLE TABLETS PO SCH (09:41)
[2018-08-04] MEDS: amLODIPine BESYLATE 5 MG TABLET (FP) PO SCH (09:41)
[2018-08-04] MEDS: cloNIDine HCL 0.1 MG TABLET PO SCH (09:41)
[2018-08-04] MEDS: LACTOBACILLUS ACIDOPHILUS 1 TABLET PO SCH (09:42)
[2018-08-04] MEDS: FUROSEMIDE 20 MG TABLET (FP) PO SCH (09:42)
[2018-08-04] MEDS: VANCOMYCIN 1 GM PREMIX - 1 GM/200 ML BAG IVPB SCH (09:42)
[2018-08-04] MEDS: POLYETHYLENE GLYCOL 3350 119 GM BTL PO SCH (09:51)
[2018-08-04] MEDS: ALPRAZolam 2 MG TABLET PO PRN (09:51)
[2018-08-04] MEDS ORDERED: INSULIN (NOVOLOG) ASPART 100 UNITS/ML 10ML VIAL ONE (12:09)
[2018-08-04 17:01] VITALS: BP 145/73; PULSE 67; TEMP 98
== END 2018-08-04 17:08 | DRG 317 ==
LOC: JER 10:15 → JERBED 13:46 → J6S 14:27 → J8W 07-28 15:58
PROVIDERS: ADMIT Family Medicine; ATTEND Family Medicine
PROC: 0J9L0ZZ Drainage of Right Upper Leg Subcutaneous Tissue and Fascia, Open Approach (ICD-10-PCS; 2018-07-26)
PROC: 05HM33Z Insertion of Infusion Device into Right Internal Jugular Vein, Percutaneous Approach (ICD-10-PCS; 2018-07-26)
PROC: B543ZZA Ultrasonography of Right Jugular Veins, Guidance (ICD-10-PCS; 2018-07-26)
PROC: 0JBL0ZZ Excision of Right Upper Leg Subcutaneous Tissue and Fascia, Open Approach (ICD-10-PCS; principal; 2018-07-28 13:30)
PROC: B518ZZA Fluoroscopy of Superior Vena Cava, Guidance (ICD-10-PCS; 2018-08-04)
PROC: 02HV33Z Insertion of Infusion Device into Superior Vena Cava, Percutaneous Approach (ICD-10-PCS; 2018-08-04)
DX: T87.43 Infection of amputation stump, right lower extremity (principal); E11.621 Type 2 diabetes mellitus with foot ulcer; E11.40 Type 2 diabetes mellitus with diabetic neuropathy, unspecified; F11.20 Opioid dependence, uncomplicated; M86.18 Other acute osteomyelitis, other site; E11.69 Type 2 diabetes mellitus with other specified complication; L02.415 Cutaneous abscess of right lower limb; L03.115 Cellulitis of right lower limb; L97.429 Non-pressure chronic ulcer of left heel and midfoot with unspecified severity; Z89.422 Acquired absence of other left toe(s); Y83.8 Other surgical procedures as the cause of abnormal reaction of the patient, or of later complication, without mention of misadventure at the time of the procedure; Y92.018 Other place in single-family (private) house as the place of occurrence of the external cause; R45.1 Restlessness and agitation; Z90.01 Acquired absence of eye; Z79.4 Long term (current) use of insulin; I10 Essential (primary) hypertension; E78.5 Hyperlipidemia, unspecified; B19.20 Unspecified viral hepatitis C without hepatic coma; Z22.322 Carrier or suspected carrier of Methicillin resistant Staphylococcus aureus; S59.801A Other specified injuries of right elbow, initial encounter; W06.XXXA Fall from bed, initial encounter; Y93.89 Activity, other specified; Y92.231 Patient bathroom in hospital as the place of occurrence of the external cause; Y99.8 Other external cause status
CPT/HCPCS: 36415; 36569; 71045-TC-FY; 73590-TC-LT-FY; 73590-TC-RT-FY; 77001-TC-FY; 80048; 80053; 81003; 82140; 82962; 83036; 83605; 83735; 84484; 85025; 85027; 85610; 85651; 85730; 86140; 86850; 86900; 86901; 87040; 87070; 87086; 87186; 87205; 93005; 93010; 94760; 99283-25; C1751; G0480; J0735; J7030

== ENCOUNTER 2018-12-24 07:17 | Inpatient (IN) | payer OTHER ==
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
[2018-12-24 09:17] LABS: VENOUS PC02 43.1 mmHg (38-52); VENOUS PH 7.39 (7.31-7.41)
[2018-12-24 09:28] LABS: BASO % 0.5 % (0-2.0); HEMATOCRIT 34.3 % (35.4-49); HEMOGLOBIN 11.1 GM/dL (11.7-16.9); LYMPH % 14.3 % (8-40); MCH 27.1 pg (25.7-33.7); MCHC 32.4 g/dl (32.0-35.9); MEAN CELL VOLUME 83.6 fl (80-96); MEAN PLT VOLUME 8.5 fl (7.5-11.1); MONO % 6.2 % (3.8-10.2); PLATELET COUNT 256 K/MM3 (134-434); RDW 15.8 % (11.9-15.9); WHITE BLOOD COUNT 10.5 K/mm3 (4.0-10.0)
[2018-12-24 09:33] LABS: VENOUS PO2 < 49 mmHg (28-48)
[2018-12-24 09:48] LABS: INR 1.28 (0.83-1.09); PROTHROMBIN TIME (PATIENT) 15.1 SEC (9.7-13.0)
[2018-12-24 09:51] LABS: ALBUMIN 3.3 g/dl (3.4-5.0); BILIRUBIN,TOTAL 0.4 mg/dL (0.2-1); BLOOD UREA NITROGEN 24.8 mg/dL (7-18); CALCIUM 8.8 mg/dL (8.5-10.1); CREATININE 1.2 mg/dL (0.55-1.3); POTASSIUM 5.1 mmol/L (3.5-5.1); TOT PROT 7.2 g/dl (6.4-8.2)
[2018-12-24] MEDS ORDERED: DEXTROSE 50%-WATER - 25 GM/50 ML VIAL IVPUSH ONE ×2 (09:57→12:10)
[2018-12-24] MEDS ORDERED: DEXTROSE 50%-WATER - 25 GM/50 ML VIAL ONE (09:58)
[2018-12-24] MEDS ORDERED: DEXTROSE 50%-WATER 25 GM/50 ML DISP.SYRIN ONE (10:00)
[2018-12-24] MEDS ORDERED: FUROSEMIDE 40 MG/4 ML INJECTABLE VIAL IVPUSH ONE (10:03)
[2018-12-24] MEDS ORDERED: FUROSEMIDE 40 MG/4 ML INJECTABLE VIAL ONE ×2 (10:16→11:20)
[2018-12-24] MEDS ORDERED: MAGNESIUM HYDROX 2400MG/30ML ORAL SUSPENSION 30 ML CUP PO PRN (10:28)
[2018-12-24] MEDS ORDERED: ACETAMINOPHEN 325 MG TABLET (FP) PO PRN (10:28)
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
[2018-12-24] MEDS ORDERED: METOCLOPRAMIDE HCL 10 MG TABLET (FP) PO ONE (11:20)
[2018-12-24 11:25] LABS: PH,URINE 5.5 (5.0-8.0); URINE APPEARANCE CLEAR; URINE BILIRUBIN NEGATIVE (NEGATIVE); URINE COLOR YELLOW; URINE GLUCOSE (UA) TRACE (NEGATIVE); URINE KETONE NEGATIVE (NEGATIVE); URINE LEUK ESTERASE NEGATIVE (NEGATIVE); URINE NITRITE NEGATIVE (NEGATIVE); URINE PROTEIN NEGATIVE (NEGATIVE); URINE UROBILINOGEN 0.2 mg/dL (0.2-1.0)
[2018-12-24] MEDS: METOCLOPRAMIDE HCL 10 MG TABLET (FP) PO SCH ×2 (11:33→19:32)
[2018-12-24] MEDS ORDERED: VANCOMYCIN 1 GM in D5W (PRE-DOCKED) 1,000 MG/250 ML IVPB ONE (13:04)
[2018-12-24] MEDS ORDERED: PIPERACILLIN/TAZOB 4.5 GM 4.5 GM in DEXTROSE 5%-WATER 100 ML IVPB ONE (13:07)
[2018-12-24] MEDS ORDERED: VANCOMYCIN 1 GRAM (PRE-DOCKED) 1,000 MG/250 ML BAG IVPB ONE (13:11)
[2018-12-24] MEDS ORDERED: PIPERACILLIN/TAZOB 4.5 GM 4.5 GM/100 ML BAG IVPB ONE (13:11)
[2018-12-24] MEDS: FUROSEMIDE 40 MG/4 ML INJECTABLE VIAL IVPUSH SCH (13:28)
[2018-12-24 14:13] LABS: ARTERIAL BLD GAS O2 SATURATION 93.7 % (95-98); ARTERIAL BLOOD GAS BASE EXCESS 2.3 meq/l (-2-2); ARTERIAL BLOOD GAS PCO2 37.5 mmHg (35-45); ARTERIAL BLOOD GAS PO2 72.3 mmHg (80-100); ARTERIAL BLOOD GAS pH 7.45 (7.35-7.45)
[2018-12-24 14:16] LABS: ALLENS TEST POSITIVE
--- NOTE | 2018-12-24 17:32 | CONSULT ---
Consult - text type - Consultation Consultation Note: PULMONARY/CRITICAL CARE CONSULT: HPI: Briefly, a morbidly obese 53 y/o uncontrolled Insulin dependant diabetic with prior rib osteo, MRSA bacteremia and endocarditis, non-healing wounds, R traumatic BKA, who presented to the ED with an acute onset of SOB. He is essentially wheelchair bound at baseline, no home Oxygen requirement. He denied any fever, chills, sputum production, no sick contacts or recent travel. He was in a sub-acute rehab 2 months ago for a non-healing diabetic wound. CXR was significant for b/l pleural effusions. A CTA was done which was negative for PE , but showed large b/l pleural effusions with b/l lower lobe consolidation - compression atelectasis vs infiltrate. He was given a dose of IV Lasix and started on Vanc/Zosyn. ABG was significant only for hypoxemia. Ventilation was ok. Current Medications Acetaminophen (Tylenol -) 325 mg PO Q6H PRN PRN Reason: PAIN Alprazolam (Xanax -) 2 mg PO Q6H PRN PRN Reason: ANXIETY Amlodipine Besylate (Norvasc -) 5 mg PO DAILY [facility] Aspirin (Asa -) 81 mg PO DAILY [facility] Atorvastatin Calcium (Lipitor -) 20 mg PO HS [facility] Calcium Carbonate/Cholecalciferol (Os-Tra 500+D -) 1 tab PO BID [facility]ICE Clonidine (Catapres -) 0.2 mg PO BID PRICE Docusate Sodium (Colace -) 100 mg PO BID PRICE Furosemide (Lasix Injection -) 40 mg IVPUSH BID@0600,1400 [facility] Last Admin: 12/24/18 13:28 Dose: 40 mg Insulin Aspart (Novolog Mix 70/30 Vial) 60 units SQ BID@0700,2200 [facility] Lactobacillus Acidophilus (Bacid -) 1 tab PO DAILY [facility] Magnesium Hydroxide (Milk Of Magnesia -) 30 ml PO DAILY PRN PRN Reason: CONSTIPATION Metoclopramide HCl (Reglan -) 10 mg PO TIDAC [facility] Last Admin: 12/24/18 11:33 Dose: 10 mg Nystatin (Mycostatin Cream -) 1 applic TP BID [facility] Oxycodone HCl (Roxicodone -) 30 mg PO Q3H PRN PRN Reason: PAIN LEVEL 6-10 Polyethylene Glycol (Miralax (For Daily Use) -) 17 gm PO DAILY [facility] Vital Signs Temp 98.5 F 12/24/18 15:28 Pulse 60 12/24/18 16:00 Resp 19 12/24/18 16:00 BP 131/68 12/24/18 16:00 Pulse Ox 97 12/24/18 15:00 Intake & Output 12/23/18 12/24/18 12/24/18 18:59 06:59 18:59 Output Total 3425 Balance -3425 Weight 113.398 kg Output: Urine 3425 Powers 3425 Other: Voiding Method Indwelling Catheter # Unmeasured Voids Powers 1 Height 5 ft 7 in Body Mass Index (BMI) 39.1 EXAM: gen: alert HEENT: enucleated L eye; blind R, MMM chest: b/l crackles, diminished bases heart: RRR abd: obese, soft, non-tender ext: R BKA, edema, L foot ulcer skin: warm, dry CBC, BMP 12/24/18 08:48 12/24/18 08:48 ASSESSMENT/PLAN: Hypoxemic respiratory failure b/l pleural effusions +/- PNA IDDM Hypoglycemia -HFNC for Oxygen support -Diuresis - Lasix BID -Will consider dx thora if doesn't improve with diuresis -Check Echo -Continue Vanc/Zosyn pending cultures -Glycemic control -Restart home medications -DVT PPx Critical Care Time 45min Elver Brumfield Pulm/Critical Care [employer] DIRECTOR
[2018-12-24] MEDS: oxyCODONE HCL 5 MG TABLET PO PRN (20:04)
[2018-12-24] MEDS ORDERED: cefTRIAXone SODIUM 1 GM VIAL ONE (21:12)
[2018-12-24] MEDS ORDERED: DEXTROSE 5%-WATER - 50 ML IVPB ONE (21:12)
[2018-12-24] MEDS ORDERED: PT OWN MED DRAWER 7, Y5N ONE (21:13)
[2018-12-24] MEDS: CEFTRIAXONE 1 GM in DEXTROSE 5%-WATER - 50 ML IVPB SCH (21:21)
[2018-12-24] MEDS: AZITHROMYCIN IVPB 500 MG/250 ML BAG IVPB SCH (21:21)
[2018-12-24] MEDS: ATORVASTATIN CA 20 MG TABLET (FP) PO SCH (21:23)
[2018-12-24] MEDS: CALCIUM 500MG/VIT-D 200 UNITS COMBO TABLET (FP) PO SCH (21:23)
[2018-12-24] MEDS: DOCUSATE SODIUM 100 MG CAPSULE (FP) PO SCH (21:23)
[2018-12-24] MEDS ORDERED: INSULIN (NOVOLOG MIX 70/30) 100 UNITS/ML MDV SQ SCH (22:00)
[2018-12-24] MEDS: ALPRAZolam 2 MG TABLET PO PRN (22:53)
[2018-12-24] MEDS: NYSTATIN 100,000 UNIT/GM TOPICAL CREAM 15 GM TUBE TP SCH (22:53)
[2018-12-24] MEDS: cloNIDine HCL 0.1 MG TABLET PO SCH (22:53)
[2018-12-25] MEDS: FUROSEMIDE 40 MG/4 ML INJECTABLE VIAL IVPUSH SCH ×2 (05:40→14:22)
[2018-12-25] MEDS: oxyCODONE HCL 5 MG TABLET PO PRN ×4 (05:40→21:54)
[2018-12-25 06:09] LABS: HEMATOCRIT 33.4 % (35.4-49); HEMOGLOBIN 11.1 GM/dL (11.7-16.9); MCH 27.6 pg (25.7-33.7); MCHC 33.2 g/dl (32.0-35.9); MEAN PLT VOLUME 8.8 fl (7.5-11.1); PLATELET COUNT 228 K/MM3 (134-434); RBC 4.03 M/mm3 (4.00-5.60); WHITE BLOOD COUNT 10.4 K/mm3 (4.0-10.0)
[2018-12-25] MEDS: INSULIN (NOVOLOG MIX 70/30) 100 UNITS/ML MDV SQ SCH ×2 (06:33→22:01)
[2018-12-25] MEDS: METOCLOPRAMIDE HCL 10 MG TABLET (FP) PO SCH ×3 (06:34→17:03)
[2018-12-25 06:45] LABS: ALBUMIN 2.8 g/dl (3.4-5.0); BILIRUBIN,TOTAL 0.7 mg/dL (0.2-1); BLOOD UREA NITROGEN 22.1 mg/dL (7-18); CALCIUM 8.4 mg/dL (8.5-10.1); CREATININE 1.2 mg/dL (0.55-1.3); MAGNESIUM 2.4 mg/dL (1.8-2.4); POTASSIUM 4.5 mmol/L (3.5-5.1); TOT PROT 6.4 g/dl (6.4-8.2)
[2018-12-25] MEDS ORDERED: cefTRIAXone SODIUM 1 GM VIAL ONE (07:29)
[2018-12-25] MEDS ORDERED: DEXTROSE 5%-WATER - 50 ML IVPB ONE (07:29)
--- NOTE | 2018-12-25 07:37 | PN ---
Progress Note (short form) - Note Progress Note: PULMONARY/CRITICAL CARE PROGRESS NOTE: SUBJECTIVE: Pt seen and examined in the ICU Net negative 6L with Lasix Tolerating HFNC .50 FiO2 OBJECTIVE: Current Medications Acetaminophen (Tylenol -) 325 mg PO Q6H PRN PRN Reason: PAIN Alprazolam (Xanax -) 2 mg PO Q6H PRN PRN Reason: ANXIETY Last Admin: 12/24/18 22:53 Dose: 2 mg Amlodipine Besylate (Norvasc -) 5 mg PO DAILY [facility] Aspirin (Asa -) 81 mg PO DAILY [facility] Atorvastatin Calcium (Lipitor -) 20 mg PO HS [facility] Last Admin: 12/24/18 21:23 Dose: 20 mg Calcium Carbonate/Cholecalciferol (Os-Tra 500+D -) 1 tab PO BID [facility] Last Admin: 12/24/18 21:23 Dose: 1 tab Clonidine (Catapres -) 0.2 mg PO BID [facility] Last Admin: 12/24/18 22:53 Dose: 0.2 mg Docusate Sodium (Colace -) 100 mg PO BID [facility] Last Admin: 12/24/18 21:23 Dose: 100 mg Furosemide (Lasix Injection -) 40 mg IVPUSH BID@0600,1400 [facility] Last Admin: 12/25/18 05:40 Dose: 40 mg Azithromycin (Zithromax 500mg Ivpb (Pre-Docked)) 500 mg in 250 mls @ 250 mls/ hr IVPB DAILY [facility] Last Admin: 12/24/18 21:21 Dose: 250 mls/hr Ceftriaxone Sodium 1 gm/ (Dextrose) 50 mls @ 100 mls/hr IVPB DAILY [facility] Last Admin: 12/24/18 21:21 Dose: 100 mls/hr Insulin Aspart (Novolog Mix 70/30 Vial) 30 units SQ BID@0700,2200 [facility] Last Admin: 12/25/18 06:33 Dose: 30 units Lactobacillus Acidophilus (Bacid -) 1 tab PO DAILY [facility] Magnesium Hydroxide (Milk Of Magnesia -) 30 ml PO DAILY PRN PRN Reason: CONSTIPATION Metoclopramide HCl (Reglan -) 10 mg PO TIDAC [facility] Last Admin: 12/25/18 06:34 Dose: 10 mg Nystatin (Mycostatin Cream -) 1 applic TP BID [facility] Last Admin: 12/24/18 22:53 Dose: 1 applic Oxycodone HCl (Roxicodone -) 30 mg PO Q3H PRN PRN Reason: PAIN LEVEL 6-10 Last Admin: 12/25/18 05:40 Dose: 30 mg Polyethylene Glycol (Miralax (For Daily Use) -) 17 gm PO DAILY [facility] Vital Signs Temp 98.4 F 12/25/18 06:00 Pulse 66 12/25/18 06:00 Resp 16 12/25/18 06:00 BP 131/65 12/25/18 06:00 Pulse Ox 94 L 12/24/18 21:00 Intake & Output 12/24/18 12/25/18 12/25/18 18:59 06:59 18:59 Intake Total 370 500 Output Total 6125 1200 Balance -5755 -700 Weight 113.398 kg 128.457 kg Intake: IVPB 250 350 Oral 120 150 Output: Urine 6125 1200 Powers 6125 1200 Other: Voiding Method Indwelling Catheter Indwelling Catheter # Unmeasured Voids Powers 1 Bowel Movement No Height 5 ft 7 in Body Mass Index (BMI) 39.1 Weight Measurement Method Built in [facility] EXAM: gen: alert HEENT: enucleated L eye; blind R, MMM chest: b/l crackles, diminished bases heart: RRR abd: obese, soft, non-tender ext: R BKA, edema, L foot ulcer skin: warm, dry CBC, BMP 12/25/18 05:40 12/25/18 05:40 ASSESSMENT/PLAN: Hypoxemic respiratory failure b/l pleural effusions +/- PNA IDDM Hypoglycemia -HFNC for Oxygen support -Diuresis - Lasix BID -Will consider dx thora if doesn't improve with diuresis and abx -Check Echo -Antibiotics -Glycemic control -Restart home medications -DVT PPx Critical Care Time 45min Elver Brumfield Pulm/Critical Care [employer] TICKET AGENT
[2018-12-25] MEDS: CEFTRIAXONE 1 GM in DEXTROSE 5%-WATER - 50 ML IVPB SCH (09:37)
[2018-12-25] MEDS: DOCUSATE SODIUM 100 MG CAPSULE (FP) PO SCH ×2 (09:38→21:53)
[2018-12-25] MEDS: CALCIUM 500MG/VIT-D 200 UNITS COMBO TABLET (FP) PO SCH ×2 (09:38→21:53)
[2018-12-25] MEDS: amLODIPine BESYLATE 5 MG TABLET (FP) PO SCH (09:38)
[2018-12-25] MEDS: ASPIRIN 81 MG CHEWABLE TABLETS PO SCH (09:38)
[2018-12-25] MEDS: cloNIDine HCL 0.1 MG TABLET PO SCH ×2 (09:38→21:53)
[2018-12-25] MEDS: POLYETHYLENE GLYCOL 3350 119 GM BTL PO SCH (09:39)
[2018-12-25] MEDS: LACTOBACILLUS ACIDOPHILUS 1 TABLET PO SCH (09:39)
[2018-12-25] MEDS: AZITHROMYCIN IVPB 500 MG/250 ML BAG IVPB SCH (09:40)
[2018-12-25] MEDS: NYSTATIN 100,000 UNIT/GM TOPICAL CREAM 15 GM TUBE TP SCH ×2 (09:44→22:01)
--- NOTE | 2018-12-25 12:05 | CON.CARD ---
Consult Consult Specialty:: Cardiology Referred by:: Medicine Reason for Consultation:: CHF - History of Present Illness Chief Complaint: shortness of breath History of Present Illness: 53M h/o DM, MRSA bacteremia and endocarditis p/w acute onset shortness of breath. CTA in ER showed large sherrie pleural effusions and sherrie lower lobe consolidations. Breathing improving with IV lasix, abx. No chest pain, palps, dizziness - Past Medical History Cardio/Vascular: Yes: CHF, HTN Infectious Disease: Yes: MRSA Musculoskeletal: Yes: Chronic low back pain, Osteoarthritis Endocrine: Yes: Diabetes Mellitus - Past Surgical History Past Surgical History: Yes: Amputation - Alcohol/Substance Use Hx Alcohol Use: No - Smoking History Smoking history: Never smoked Have you smoked in the past 12 months: No - Social History ADL: Support Services History of Recent Travel: No Home Medications - Allergies Allergies/Adverse Reactions: Allergies Allergy/AdvReac Type Severity Reaction Status Date / Time No Known Allergies Allergy Verified 12/24/18 07:52 - Home Medications Home Medications: Ambulatory Orders Amlodipine Besylate 5 mg PO DAILY 12/26/15 Aspirin [ASA -] 81 mg PO DAILY 12/26/15 Atorvastatin Ca [Lipitor] 20 mg PO HS 12/26/15 Furosemide 20 mg PO DAILY 12/26/15 Docusate Sodium [Colace -] 100 mg PO BID #60 tab 08/21/16 Insulin Aspart Prot/Insuln Asp [Novolog Mix 70-30 Vial] 60 units SQ BID Oxycodone HCl 30 mg PO Q3H PRN MDD 180 10/20/17 Alprazolam [Xanax] 2 mg PO Q6H PRN #10 tablet MDD 8 10/22/17 Calcium 500Mg/Vit-D 200 Units [Os-Tra 500+D -] 1 tab PO BID tab 10/22/17 Lactobacillus Acidophilus [Bacid -] 1 tab PO DAILY tab 10/22/17 Metoclopramide HCl [Reglan -] 10 mg PO TIDAC tablet 10/22/17 Insulin Sliding Scale [Novolog Vial Sliding Scale -] 1 vial SQ ACHS units 07/04 cloNIDine HCL [Catapres -] 0.2 mg PO BID tablet 07/04/18 Polyethylene Glycol 3350 [Miralax 119 gm Btl -] 17 gm PO DAILY bottle 08/04/18 Acetaminophen 325 mg PO Q6H PRN 08/19/18 Magnesium Hydroxide [Milk of Magnesia] 30 ml PO DAILY PRN 08/19/18 Nystatin 1 applic TP BID 08/19/18 Family Medical History Family History: Unremarkable Review of Systems - Review of Systems Constitutional: reports: No Symptoms Eyes: reports: No Symptoms HENT: reports: No Symptoms Neck: reports: No Symptoms Cardiovascular: reports: No Symptoms Respiratory: reports: No Symptoms Gastrointestinal: reports: No Symptoms Genitourinary: reports: No Symptoms Musculoskeletal: reports: No Symptoms Integumentary: reports: No Symptoms Neurological: reports: No Symptoms Endocrine: reports: No Symptoms Hematology/Lymphatic: reports: No Symptoms Psychiatric: reports: No Symptoms Vital Signs: Vital Signs Temperature 98.4 F 12/25/18 06:00 Pulse Rate 68 12/25/18 08:40 Respiratory Rate 15 12/25/18 09:00 Blood Pressure 120/59 L 12/25/18 08:00 O2 Sat by Pulse Oximetry (%) 95 12/25/18 09:19 Constitutional: Yes: No Distress, Calm Eyes: Yes: Conjunctiva Clear, EOM Intact HENT: Yes: Atraumatic, Normocephalic Neck: Yes: Supple, Trachea Midline Respiratory: Yes: Regular, Diminished (at bases sherrie, poor effort) Gastrointestinal: Yes: Normal Bowel Sounds, Soft Cardiovascular: Yes: Regular Rate and Rhythm JVD: Yes Edema: No Integumentary: No: Jaundice Neurological: Yes: Alert, Oriented Psychiatric: No: Agitated - Other Data Labs, Other Data: CBC, BMP 12/25/18 05:40 12/25/18 05:40 INR, PTT INR 1.28 (0.83-1.09) H 12/24/18 08:48 Assessment/Plan EKG: sinus, low voltage, nl intervals, no ischemic changes CXR: sherrie pleural effusions CTA chest sherrie pleural effusions with consolidations Acute HF exacerbation, sob, possible PNA - abx per primary - cont IV lasix, monitor daily weights, Cr, lytes - echo pending DM - manage per primary HTN - cont home meds HLD - cont statin
[2018-12-25] MEDS: ALPRAZolam 2 MG TABLET PO PRN ×2 (14:22→23:54)
--- NOTE | 2018-12-25 16:51 | PN ---
Progress Note (short form) - Note Progress Note: seen and examined in ICU HFNC in place Sat90% urine output 8liters states feeling better today sister at bedside Vital Signs Period Temp Pulse Resp BP Sys/Cross Pulse Ox Last 24 Hr 97.8 F-98.4 F 60-71 10-29 119-139/59-79 94-96 Intake & Output 12/22/18 12/23/18 12/24/18 12/25/18 23:59 23:59 23:59 23:59 Intake Total 820 50 Output Total 6525 2700 Balance -5705 -2650 Weight 250 lb 283 lb 3.2 oz MUST HAVE INCORRECT WEIGHTS sitting up heart S1/S2 lungs decreased at bases / no wheezing abd obese / soft ext left LE with chronic changes R BKA has open wound at stump CBC, BMP 12/25/18 05:40 12/25/18 05:40 CXR bilat pleural effusion larger right CT of chest bilat effusion with consolidation Microbiology 12/24/18 05:30 Urine For Antigen Detection Legionella Antigen - Final 12/24/18 05:30 Urine For Antigen Detection Streptococcus pneumoniae Antigen (M - Final 12/24/18 08:48 Blood - Peripheral Venous Blood Culture - Preliminary NO GROWTH OBTAINED AFTER 24 HOURS, INCUBATION TO CONTINUE FOR 4 DAYS. 12/24/18 08:48 Blood - Peripheral Venous Blood Culture - Preliminary NO GROWTH OBTAINED AFTER 24 HOURS, INCUBATION TO CONTINUE FOR 4 DAYS. 12/24/18 11:10 Urine - Urine Clean Catch Urine Culture - Final NO GROWTH OBTAINED Active Medications Acetaminophen (Tylenol -) 325 mg PO Q6H PRN PRN Reason: PAIN Alprazolam (Xanax -) 2 mg PO Q6H PRN PRN Reason: ANXIETY Last Admin: 12/25/18 14:22 Dose: 2 mg Amlodipine Besylate (Norvasc -) 5 mg PO DAILY [facility] Last Admin: 12/25/18 09:38 Dose: 5 mg Aspirin (Asa -) 81 mg PO DAILY [facility] Last Admin: 12/25/18 09:38 Dose: 81 mg Atorvastatin Calcium (Lipitor -) 20 mg PO HS [facility] Last Admin: 12/24/18 21:23 Dose: 20 mg Calcium Carbonate/Cholecalciferol (Os-Tra 500+D -) 1 tab PO BID [facility] Last Admin: 12/25/18 09:38 Dose: 1 tab Clonidine (Catapres -) 0.2 mg PO BID [facility] Last Admin: 12/25/18 09:38 Dose: 0.2 mg Docusate Sodium (Colace -) 100 mg PO BID [facility] Last Admin: 12/25/18 09:38 Dose: 100 mg Furosemide (Lasix Injection -) 40 mg IVPUSH BID@0600,1400 [facility] Last Admin: 12/25/18 14:22 Dose: 40 mg Azithromycin (Zithromax 500mg Ivpb (Pre-Docked)) 500 mg in 250 mls @ 250 mls/ hr IVPB DAILY [facility] Last Admin: 12/25/18 09:40 Dose: 250 mls/hr Ceftriaxone Sodium 1 gm/ (Dextrose) 50 mls @ 100 mls/hr IVPB DAILY [facility] Last Admin: 12/25/18 09:37 Dose: 100 mls/hr Insulin Aspart (Novolog Mix 70/30 Vial) 30 units SQ BID@0700,2200 [facility] Last Admin: 12/25/18 06:33 Dose: 30 units Lactobacillus Acidophilus (Bacid -) 1 tab PO DAILY [facility] Last Admin: 12/25/18 09:39 Dose: 1 tab Magnesium Hydroxide (Milk Of Magnesia -) 30 ml PO DAILY PRN PRN Reason: CONSTIPATION Metoclopramide HCl (Reglan -) 10 mg PO TIDAC [facility] Last Admin: 12/25/18 11:02 Dose: 10 mg Nystatin (Mycostatin Cream -) 1 applic TP BID [facility] Last Admin: 12/25/18 09:44 Dose: 1 applic Oxycodone HCl (Roxicodone -) 30 mg PO Q3H PRN PRN Reason: PAIN LEVEL 6-10 Last Admin: 12/25/18 11:04 Dose: 30 mg Polyethylene Glycol (Miralax (For Daily Use) -) 17 gm PO DAILY [facility] Last Admin: 12/25/18 09:39 Dose: 17 gm ASS/PLAN # new onset HF hypoxemic resp failure due to large bilat effusions Cardiomegaly on CXR/ CT - ECHO ordered continue IV lasix monitor renal function and lytes I & O discussed possibly consideration for pleural tap if diuresis fail # DM ADA diet continue Insulin # Hypoxemic respiratory failure HFNC keep sat > 90% # HTN continue home meds if Bp permits # chronic pain syndrom continue out patient meds # Chronic Osteo - MRSA # non healing wound to Stump scheduled for wound clinic as out patient Problem List - Problems (1) Bilateral pleural effusion Code(s): J90 - PLEURAL EFFUSION, NOT ELSEWHERE CLASSIFIED (2) Hypoxemia requiring supplemental oxygen Code(s): R09.02 - HYPOXEMIA; Z99.81 - DEPENDENCE ON SUPPLEMENTAL OXYGEN (3) Amputation of right lower extremity below knee Code(s): Z89.511 - ACQUIRED ABSENCE OF RIGHT LEG BELOW KNEE (4) Anxiety Code(s): F41.9 - ANXIETY DISORDER, UNSPECIFIED (5) Chronic pain Code(s): G89.29 - OTHER CHRONIC PAIN (6) Diabetes mellitus Code(s): E11.9 - TYPE 2 DIABETES MELLITUS WITHOUT COMPLICATIONS (7) HLD (hyperlipidemia) Code(s): E78.5 - HYPERLIPIDEMIA, UNSPECIFIED (8) HTN (hypertension) Code(s): I10 - ESSENTIAL (PRIMARY) HYPERTENSION (9) Hepatitis C Code(s): B19.20 - UNSPECIFIED VIRAL HEPATITIS C WITHOUT HEPATIC COMA (10) Opioid dependence on agonist therapy Code(s): F11.20 - OPIOID DEPENDENCE, UNCOMPLICATED (11) PTSD (post-traumatic stress disorder) Code(s): F43.10 - POST-TRAUMATIC STRESS DISORDER, UNSPECIFIED (12) Peripheral neuropathy Code(s): G62.9 - POLYNEUROPATHY, UNSPECIFIED Qualifiers:
[2018-12-25] MEDS: ATORVASTATIN CA 20 MG TABLET (FP) PO SCH (21:53)
[2018-12-26] MEDS: oxyCODONE HCL 5 MG TABLET PO PRN ×3 (03:53→18:39)
[2018-12-26] MEDS: FUROSEMIDE 40 MG/4 ML INJECTABLE VIAL IVPUSH SCH (05:52)
[2018-12-26] MEDS: METOCLOPRAMIDE HCL 10 MG TABLET (FP) PO SCH ×3 (06:04→16:30)
[2018-12-26] MEDS: INSULIN (NOVOLOG MIX 70/30) 100 UNITS/ML MDV SQ SCH ×2 (06:04→21:44)
[2018-12-26] MEDS ORDERED: PT OWN MED DRAWER 7, Y5N ONE ×3 (06:12→18:33)
[2018-12-26] MEDS ORDERED: SODIUM CHLORIDE NASAL SPRAY 44 ML BOTTLE NS PRN (06:18)
[2018-12-26 06:28] LABS: BASO % 0.5 % (0-2.0); EOS % 0.9 % (0-4.5); HEMATOCRIT 33.6 % (35.4-49); HEMOGLOBIN 11.1 GM/dL (11.7-16.9); LYMPH % 16.6 % (8-40); MCH 27.1 pg (25.7-33.7); MEAN CELL VOLUME 82.2 fl (80-96); MEAN PLT VOLUME 8.6 fl (7.5-11.1); MONO % 7.2 % (3.8-10.2); NEUT % 74.8 % (42.8-82.8); PLATELET COUNT 227 K/MM3 (134-434); RBC 4.09 M/mm3 (4.00-5.60); RDW 15.6 % (11.9-15.9); WHITE BLOOD COUNT 9.1 K/mm3 (4.0-10.0)
[2018-12-26 06:54] LABS: CALCIUM 8.4 mg/dL (8.5-10.1); CREATININE 1.2 mg/dL (0.55-1.3); MAGNESIUM 2.3 mg/dL (1.8-2.4); POTASSIUM 4.1 mmol/L (3.5-5.1)
[2018-12-26] MEDS ORDERED: cefTRIAXone SODIUM 1 GM VIAL ONE (08:08)
[2018-12-26] MEDS ORDERED: DEXTROSE 5%-WATER - 50 ML IVPB ONE (08:08)
[2018-12-26] MEDS: ALPRAZolam 2 MG TABLET PO PRN ×2 (08:11→21:51)
--- NOTE | 2018-12-26 09:19 | PN ---
Progress Note, Physician Chief Complaint: sob History of Present Illness: + nasal NIPPV. remains quite sob he says. notes sternal region pain ongoing since acute sx onset on 12/24--constant pain all day. no palp, syncope no cigs - Current Medication List Current Medications: Active Medications Acetaminophen (Tylenol -) 325 mg PO Q6H PRN PRN Reason: PAIN Alprazolam (Xanax -) 2 mg PO Q6H PRN PRN Reason: ANXIETY Last Admin: 12/26/18 08:11 Dose: 2 mg Amlodipine Besylate (Norvasc -) 5 mg PO DAILY [facility] Last Admin: 12/25/18 09:38 Dose: 5 mg Aspirin (Asa -) 81 mg PO DAILY [facility] Last Admin: 12/25/18 09:38 Dose: 81 mg Atorvastatin Calcium (Lipitor -) 20 mg PO HS [facility] Last Admin: 12/25/18 21:53 Dose: 20 mg Calcium Carbonate/Cholecalciferol (Os-Tra 500+D -) 1 tab PO BID [facility] Last Admin: 12/25/18 21:53 Dose: 1 tab Clonidine (Catapres -) 0.2 mg PO BID [facility] Last Admin: 12/25/18 21:53 Dose: 0.2 mg Docusate Sodium (Colace -) 100 mg PO BID [facility] Last Admin: 12/25/18 21:53 Dose: 100 mg Furosemide (Lasix Injection -) 40 mg IVPUSH BID@0600,1400 [facility] Last Admin: 12/26/18 05:52 Dose: 40 mg Azithromycin (Zithromax 500mg Ivpb (Pre-Docked)) 500 mg in 250 mls @ 250 mls/ hr IVPB DAILY [facility] Last Admin: 12/25/18 09:40 Dose: 250 mls/hr Ceftriaxone Sodium 1 gm/ (Dextrose) 50 mls @ 100 mls/hr IVPB DAILY [facility] Last Admin: 12/25/18 09:37 Dose: 100 mls/hr Insulin Aspart (Novolog Mix 70/30 Vial) 30 units SQ BID@0700,2200 [facility] Last Admin: 12/26/18 06:04 Dose: 30 units Lactobacillus Acidophilus (Bacid -) 1 tab PO DAILY [facility] Last Admin: 12/25/18 09:39 Dose: 1 tab Magnesium Hydroxide (Milk Of Magnesia -) 30 ml PO DAILY PRN PRN Reason: CONSTIPATION Metoclopramide HCl (Reglan -) 10 mg PO TIDAC [facility] Last Admin: 12/26/18 06:04 Dose: 10 mg Nystatin (Mycostatin Cream -) 1 applic TP BID [facility] Last Admin: 12/25/18 22:01 Dose: 1 applic Oxycodone HCl (Roxicodone -) 30 mg PO Q3H PRN PRN Reason: PAIN LEVEL 6-10 Last Admin: 12/26/18 03:53 Dose: 30 mg Polyethylene Glycol (Miralax (For Daily Use) -) 17 gm PO DAILY [facility] Last Admin: 12/25/18 09:39 Dose: 17 gm Sodium Chloride ([place] Nasal [place] -) 2 spray NS TID PRN PRN Reason: NASAL CONGESTION - Objective Vital Signs: Vital Signs Temperature 98.1 F 12/26/18 08:00 Pulse Rate 63 12/26/18 08:12 Respiratory Rate 15 12/26/18 08:00 Blood Pressure 141/83 12/26/18 08:00 O2 Sat by Pulse Oximetry (%) 96 12/26/18 08:12 Constitutional: Yes: No Distress, Calm, Obese Cardiovascular: Yes: Regular Rate and Rhythm (soft intensity sounds), S1, S2. No: JVD (++ tds exam), Gallop, Murmur Respiratory: Yes: Regular, CTA Bilaterally. No: Accessory Muscle Use, Rales, Wheezes Extremities: No: Cold Edema: No (s/p R AKA) Neurological: Yes: Alert, Oriented Psychiatric: No: Agitated Labs: CBC, BMP 12/26/18 05:10 12/26/18 05:10 INR, PTT INR 1.28 (0.83-1.09) H 12/24/18 08:48 Assessment/Plan EKG: sinus, low voltage, nl intervals, no ischemic changes CXR: sherrie pleural effusions CTA chest sherrie pleural effusions with consolidations Acute HF exacerbation, sob, possible PNA, h/o remote endocarditis (2001): - abx per primary - receiving lasix 40 iv bid--CXR remains very congested, pt very sob. labs stable. incr to 80 iv bid - echo pending - outpt [facility] eval chest pain: - atyp CP, present constantly for 48 hrs now. - trop neg x 1--rpt ordered - ECG non-ischemic - ? chest wall muscle strain sec to work of breathing - consider repeat stress test once better diuresed, if etiology of CP remains uncertain DM - manage per primary HTN - bp stable - cont home meds HLD - cont statin
[2018-12-26] MEDS ORDERED: FUROSEMIDE 40 MG/4 ML INJECTABLE VIAL IVPUSH SCH (09:36)
[2018-12-26] MEDS: cloNIDine HCL 0.1 MG TABLET PO SCH ×2 (10:02→21:44)
[2018-12-26] MEDS: CALCIUM 500MG/VIT-D 200 UNITS COMBO TABLET (FP) PO SCH ×2 (10:02→21:44)
[2018-12-26] MEDS: ASPIRIN 81 MG CHEWABLE TABLETS PO SCH (10:02)
[2018-12-26] MEDS: DOCUSATE SODIUM 100 MG CAPSULE (FP) PO SCH ×2 (10:02→21:44)
[2018-12-26] MEDS: LACTOBACILLUS ACIDOPHILUS 1 TABLET PO SCH (10:02)
[2018-12-26] MEDS: amLODIPine BESYLATE 5 MG TABLET (FP) PO SCH (10:03)
[2018-12-26] MEDS: NYSTATIN 100,000 UNIT/GM TOPICAL CREAM 15 GM TUBE TP SCH ×2 (10:03→21:45)
[2018-12-26] MEDS: CEFTRIAXONE 1 GM in DEXTROSE 5%-WATER - 50 ML IVPB SCH (10:04)
[2018-12-26] MEDS: AZITHROMYCIN IVPB 500 MG/250 ML BAG IVPB SCH (10:05)
[2018-12-26] MEDS: POLYETHYLENE GLYCOL 3350 119 GM BTL PO SCH (10:13)
--- NOTE | 2018-12-26 12:05 | PN ---
Teaching Attending Note Name of Resident: Neetu Quiros ATTENDING PHYSICIAN STATEMENT I saw and evaluated the patient. I reviewed the resident's note and discussed the case with the resident. I agree with the resident's findings and plan as documented. SUBJECTIVE: Patient seen and examined in the ICU. Awake and alert. Mildly tachypneic on HFNC (50% / 50% L) Denies CP. Some dry cough. Intake & Output 12/23/18 12/24/18 12/25/18 12/26/18 23:59 23:59 23:59 23:59 Intake Total 820 1490 500 Output Total 6525 4900 2800 Balance -5705 -3410 -2300 Weight 284 lb 6.341 oz 283 lb 3.2 oz 271 lb 8 oz Last Vital Signs Temp Pulse Resp BP Pulse Ox 98.0 F 67 22 H 108/49 L 96 12/26/18 10:00 12/26/18 10:00 12/26/18 10:00 12/26/18 10:00 12/26/18 10:00 Active Medications Acetaminophen (Tylenol -) 325 mg PO Q6H PRN PRN Reason: PAIN Alprazolam (Xanax -) 2 mg PO Q6H PRN PRN Reason: ANXIETY Last Admin: 12/26/18 08:11 Dose: 2 mg Amlodipine Besylate (Norvasc -) 5 mg PO DAILY [facility] Last Admin: 12/26/18 10:03 Dose: 5 mg Aspirin (Asa -) 81 mg PO DAILY [facility] Last Admin: 12/26/18 10:02 Dose: 81 mg Atorvastatin Calcium (Lipitor -) 20 mg PO HS [facility] Last Admin: 12/25/18 21:53 Dose: 20 mg Calcium Carbonate/Cholecalciferol (Os-Tra 500+D -) 1 tab PO BID [facility] Last Admin: 12/26/18 10:02 Dose: 1 tab Clonidine (Catapres -) 0.2 mg PO BID [facility] Last Admin: 12/26/18 10:02 Dose: 0.2 mg Docusate Sodium (Colace -) 100 mg PO BID [facility] Last Admin: 12/26/18 10:02 Dose: 100 mg Furosemide (Lasix Injection -) 80 mg IVPUSH BID@0600,1400 [facility] Azithromycin (Zithromax 500mg Ivpb (Pre-Docked)) 500 mg in 250 mls @ 250 mls/ hr IVPB DAILY [facility] Last Admin: 12/26/18 10:05 Dose: 250 mls/hr Ceftriaxone Sodium 1 gm/ (Dextrose) 50 mls @ 100 mls/hr IVPB DAILY [facility] Last Admin: 12/26/18 10:04 Dose: 100 mls/hr Insulin Aspart (Novolog Mix 70/30 Vial) 30 units SQ BID@0700,2200 [facility] Last Admin: 12/26/18 06:04 Dose: 30 units Lactobacillus Acidophilus (Bacid -) 1 tab PO DAILY [facility] Last Admin: 12/26/18 10:02 Dose: 1 tab Magnesium Hydroxide (Milk Of Magnesia -) 30 ml PO DAILY PRN PRN Reason: CONSTIPATION Metoclopramide HCl (Reglan -) 10 mg PO TIDAC [facility] Last Admin: 12/26/18 11:18 Dose: 10 mg Nystatin (Mycostatin Cream -) 1 applic TP BID [facility] Last Admin: 12/26/18 10:03 Dose: 1 applic Oxycodone HCl (Roxicodone -) 30 mg PO Q3H PRN PRN Reason: PAIN LEVEL 6-10 Last Admin: 12/26/18 03:53 Dose: 30 mg Polyethylene Glycol (Miralax (For Daily Use) -) 17 gm PO DAILY [facility] Last Admin: 12/26/18 10:13 Dose: 17 gm Sodium Chloride ([place] Nasal [place] -) 2 spray NS TID PRN PRN Reason: NASAL CONGESTION EXAM: gen: awake and alert, mildly tachypneic at rest HEENT: enucleated L eye; blind R, MMM chest: b/l crackles, diminished bases heart: RRR abd: obese, soft, non-tender ext: R BKA, edema, L foot ulcer skin: warm, dry Laboratory Results - last 24 hr 12/25/18 12/26/18 12/26/18 21:35 05:10 05:10 WBC 9.1 RBC 4.09 Hgb 11.1 L Hct 33.6 L MCV 82.2 MCH 27.1 MCHC 33.0 RDW 15.6 Plt Count 227 MPV 8.6 Absolute Neuts (auto) 6.8 Neutrophils % 74.8 Lymphocytes % 16.6 Monocytes % 7.2 Eosinophils % 0.9 Basophils % 0.5 Nucleated RBC % 0 Sodium 137 Potassium 4.1 Chloride 100 Carbon Dioxide 30 Anion Gap 7 L BUN 25.0 H Creatinine 1.2 Est GFR (CKD-EPI)AfAm 78.98 Est GFR (CKD-EPI)NonAf 68.14 POC Glucometer 352 Random Glucose 203 H Calcium 8.4 L Magnesium 2.3 Troponin I 12/26/18 12/26/18 05:20 10:59 WBC RBC Hgb Hct MCV MCH MCHC RDW Plt Count MPV Absolute Neuts (auto) Neutrophils % Lymphocytes % Monocytes % Eosinophils % Basophils % Nucleated RBC % Sodium Potassium Chloride Carbon Dioxide Anion Gap BUN Creatinine Est GFR (CKD-EPI)AfAm Est GFR (CKD-EPI)NonAf POC Glucometer 193 Random Glucose Calcium Magnesium Troponin I < 0.02 ASSESSMENT/PLAN: Hypoxemic respiratory failure Bileteral pleural effusions Mcallister not suspect PNA IDDM Hypoglycemia -HFNC for Oxygen support -Diuresis - Lasix BID -Hold on Thoracentesis for now -Check ECHO -DC Antibiotics -Glycemic control -Restart home medications -DVT PPx -Requires continued ICU monitoring for HFNC O2 Dr Rivera Critical care time spent in reviewing chart, evaluating patient and formulating plan - 36 minutes.
--- NOTE | 2018-12-26 14:23 | PN ---
Progress Note (short form) - Note Progress Note: seen and examined in ICU HFNC in place Sat90% urine output > 10 liters states feeling better today c/o chest pain -however known to have chronic osteo ant ribcage Vital Signs Period Temp Pulse Resp BP Sys/Cross Pulse Ox Last 24 Hr 98 F-98.2 F 57-67 15-26 91-154/49-83 96-96 Intake & Output 12/23/18 12/24/18 12/25/18 12/26/18 23:59 23:59 23:59 23:59 Intake Total 820 1490 500 Output Total 6525 4900 2800 Balance -5705 -3410 -2300 Weight 284 lb 6.341 oz 283 lb 3.2 oz 271 lb [address] sitting up heart S1/S2 lungs decreased at bases / no wheezing abd obese / soft ext left LE with chronic changes R BKA has open wound at stump CBC, BMP 12/26/18 05:10 12/26/18 05:10 CXR remains congested CXR bilat pleural effusion larger right CT of chest bilat effusion with consolidation Microbiology 12/24/18 08:48 Blood - Peripheral Venous Blood Culture - Preliminary NO GROWTH OBTAINED AFTER 48 HOURS, INCUBATION TO CONTINUE FOR 3 DAYS. 12/24/18 08:48 Blood - Peripheral Venous Blood Culture - Preliminary NO GROWTH OBTAINED AFTER 48 HOURS, INCUBATION TO CONTINUE FOR 3 DAYS. 12/24/18 05:30 Urine For Antigen Detection Legionella Antigen - Final 12/24/18 05:30 Urine For Antigen Detection Streptococcus pneumoniae Antigen (M - Final 12/24/18 11:10 Urine - Urine Clean Catch Urine Culture - Final NO GROWTH OBTAINED Active Medications Acetaminophen (Tylenol -) 325 mg PO Q6H PRN PRN Reason: PAIN Alprazolam (Xanax -) 2 mg PO Q6H PRN PRN Reason: ANXIETY Last Admin: 12/26/18 08:11 Dose: 2 mg Amlodipine Besylate (Norvasc -) 5 mg PO DAILY [facility] Last Admin: 12/26/18 10:03 Dose: 5 mg Aspirin (Asa -) 81 mg PO DAILY [facility] Last Admin: 12/26/18 10:02 Dose: 81 mg Atorvastatin Calcium (Lipitor -) 20 mg PO HS [facility] Last Admin: 12/25/18 21:53 Dose: 20 mg Calcium Carbonate/Cholecalciferol (Os-Tra 500+D -) 1 tab PO BID [facility] Last Admin: 12/26/18 10:02 Dose: 1 tab Clonidine (Catapres -) 0.2 mg PO BID [facility] Last Admin: 12/26/18 10:02 Dose: 0.2 mg Docusate Sodium (Colace -) 100 mg PO BID [facility] Last Admin: 12/26/18 10:02 Dose: 100 mg Furosemide (Lasix Injection -) 80 mg IVPUSH BID@0600,1400 [facility] Last Admin: 12/26/18 14:45 Dose: 80 mg Insulin Aspart (Novolog Mix 70/30 Vial) 30 units SQ BID@0700,2200 [facility] Last Admin: 12/26/18 06:04 Dose: 30 units Lactobacillus Acidophilus (Bacid -) 1 tab PO DAILY [facility] Last Admin: 12/26/18 10:02 Dose: 1 tab Magnesium Hydroxide (Milk Of Magnesia -) 30 ml PO DAILY PRN PRN Reason: CONSTIPATION Metoclopramide HCl (Reglan -) 10 mg PO TIDAC [facility] Last Admin: 12/26/18 11:18 Dose: 10 mg Nystatin (Mycostatin Cream -) 1 applic TP BID [facility] Last Admin: 12/26/18 10:03 Dose: 1 applic Oxycodone HCl (Roxicodone -) 30 mg PO Q3H PRN PRN Reason: PAIN LEVEL 6-10 Last Admin: 12/26/18 12:34 Dose: 30 mg Polyethylene Glycol (Miralax (For Daily Use) -) 17 gm PO DAILY [facility] Last Admin: 12/26/18 10:13 Dose: 17 gm Sodium Chloride ([place] Nasal [place] -) 2 spray NS TID PRN PRN Reason: NASAL CONGESTION ASS/PLAN # new onset HF hypoxemic resp failure due to large bilat effusions Cardiomegaly on CXR/ CT - ECHO done today await results continue IV lasix increased by cardio 80 gm BID monitor renal function and lytes, Cr has remained stable I & O - output >12 liters appreciate Cardio and pulmonary consults discussed possibly consideration for pleural tap if diuresis fail # DM ADA diet continue Insulin # Hypoxemic respiratory failure HFNC keep sat > 90% # HTN continue home meds if Bp permits # chronic pain syndrome continue out patient meds # 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 # non healing wound to Stump scheduled for wound clinic as out patient silvadene to open wound / change daily Problem List - Problems (1) Bilateral pleural effusion Code(s): J90 - PLEURAL EFFUSION, NOT ELSEWHERE CLASSIFIED (2) Hypoxemia requiring supplemental oxygen Code(s): R09.02 - HYPOXEMIA; Z99.81 - DEPENDENCE ON SUPPLEMENTAL OXYGEN (3) Amputation of right lower extremity below knee Code(s): Z89.511 - ACQUIRED ABSENCE OF RIGHT LEG BELOW KNEE (4) Anxiety Code(s): F41.9 - ANXIETY DISORDER, UNSPECIFIED (5) Chronic pain Code(s): G89.29 - OTHER CHRONIC PAIN (6) Diabetes mellitus Code(s): E11.9 - TYPE 2 DIABETES MELLITUS WITHOUT COMPLICATIONS (7) HLD (hyperlipidemia) Code(s): E78.5 - HYPERLIPIDEMIA, UNSPECIFIED (8) HTN (hypertension) Code(s): I10 - ESSENTIAL (PRIMARY) HYPERTENSION (9) Hepatitis C Code(s): B19.20 - UNSPECIFIED VIRAL HEPATITIS C WITHOUT HEPATIC COMA (10) Opioid dependence on agonist therapy Code(s): F11.20 - OPIOID DEPENDENCE, UNCOMPLICATED (11) PTSD (post-traumatic stress disorder) Code(s): F43.10 - POST-TRAUMATIC STRESS DISORDER, UNSPECIFIED (12) Peripheral neuropathy Code(s): G62.9 - POLYNEUROPATHY, UNSPECIFIED Qualifiers:
--- NOTE | 2018-12-26 16:10 | ECHO ---
Name: MICHELE YORK Exam:Adult Echocardiogram Study Date: 12/26/2018 01:52 PM Age: 53 yrs Reason For Study: b/l pleural effusion,hypoxemia Height: 67 in Weight: 250 lb BSA: 2.2 m2 MMode/2D Measurements & Calculations IVSd: 1.0 cm Ao root diam: 3.9 cm LVIDd: 5.8 cm LA dimension: 3.7 cm LVIDs: 3.4 cm ACS: 2.1 cm LVPWd: 0.90 cm IVSs: 1.3 cm LVPWs: 1.3 cm EDV(Teich): 168.3 ml ESV(Teich): 46.1 ml Doppler Measurements & Calculations MV E max maggie: 78.5 cm/sec Ao V2 max: 113.4 cm/sec MV A max maggie: 80.5 cm/sec Ao max P.1 mmHg MV E/A: 0.98 Ao V2 mean: 80.3 cm/sec Ao mean P.9 mmHg Ao V2 VTI: 23.7 cm Med Peak E' Maggie: 2.9 cm/sec Med E/e': 27.5 Lat Peak E' Maggie: 5.4 cm/sec Lat E/e': 14.6 Procedure A complete two-dimensional transthoracic echocardiogram was performed (2D, M-mode, Doppler and color flow Doppler). Technically limited study. Left Ventricle The left ventricle is normal in size. Left ventricular systolic function is normal. Ejection Fraction = 60- 65%. No regional wall motion abnormalities noted. Right Ventricle The right ventricle is not well visualized. Atria The left atrial size is normal. Right atrium not well visualized. Mitral Valve The mitral valve is normal in structure and function. There is no mitral regurgitation noted. Tricuspid Valve The tricuspid valve is not well visualized. Aortic Valve There is mild aortic sclerosis.;. No aortic regurgitation is present. Pulmonic Valve The pulmonic valve is not well visualized. Great Vessels Mild aortic root dilatation. Pericardium/Pleura Small pericardial effusion (<1cm). Interpretation Summary Technically limited study The left ventricle is normal in size. Left ventricular systolic function is normal. No regional wall motion abnormalities noted. Ejection Fraction = 60-65%. The right ventricle is not well visualized. The left atrial size is normal. Right atrium not well visualized. There is mild aortic sclerosis.; Mild aortic root dilatation. Small pericardial effusion (<1cm) No significant valvular regurgitations Previous study is not available for comparison Rosendo Bhatti MD 12/26/2018 04:10 PM
--- NOTE | 2018-12-26 17:02 | PN ---
Physical Exam: SUBJECTIVE: Patient seen and examined at bedside. pt states he still feels SOB and chest tightness OBJECTIVE: Vital Signs Period Temp Pulse Resp BP Sys/Cross Pulse Ox Last 24 Hr 98 F-98.2 F 57-70 15-26 91-154/49-83 96-96 GENERAL: The patient is awake, alert, and fully oriented, in no acute distress. LUNGS: decreased breath sounds b/l no accessory muscle use. HEART: Regular rate and rhythm, S1, S2 without murmur, rub or gallop. ABDOMEN: Soft, TTP RUQ and RLQ, nondistended, normoactive bowel sounds EXTREMITIES: 2+ pulses, warm, well-perfused, no edema. SKIN: Warm, dry, normal turgor, no rashes or lesions noted Laboratory Results - last 24 hr 12/25/18 12/26/18 12/26/18 21:35 05:10 05:10 WBC 9.1 RBC 4.09 Hgb 11.1 L Hct 33.6 L MCV 82.2 MCH 27.1 MCHC 33.0 RDW 15.6 Plt Count 227 MPV 8.6 Absolute Neuts (auto) 6.8 Neutrophils % 74.8 Lymphocytes % 16.6 Monocytes % 7.2 Eosinophils % 0.9 Basophils % 0.5 Nucleated RBC % 0 Sodium 137 Potassium 4.1 Chloride 100 Carbon Dioxide 30 Anion Gap 7 L BUN 25.0 H Creatinine 1.2 Est GFR (CKD-EPI)AfAm 78.98 Est GFR (CKD-EPI)NonAf 68.14 POC Glucometer 352 Random Glucose 203 H Lactic Acid Calcium 8.4 L Magnesium 2.3 Troponin I Current Medications Acetaminophen (Tylenol -) 325 mg PO Q6H PRN PRN Reason: PAIN Alprazolam (Xanax -) 2 mg PO Q6H PRN PRN Reason: ANXIETY Last Admin: 12/26/18 08:11 Dose: 2 mg Amlodipine Besylate (Norvasc -) 5 mg PO DAILY [facility] Last Admin: 12/26/18 10:03 Dose: 5 mg Aspirin (Asa -) 81 mg PO DAILY [facility] Last Admin: 12/26/18 10:02 Dose: 81 mg Atorvastatin Calcium (Lipitor -) 20 mg PO HS [facility] Last Admin: 12/25/18 21:53 Dose: 20 mg Calcium Carbonate/Cholecalciferol (Os-Tra 500+D -) 1 tab PO BID [facility] Last Admin: 12/26/18 10:02 Dose: 1 tab Clonidine (Catapres -) 0.2 mg PO BID [facility] Last Admin: 12/26/18 10:02 Dose: 0.2 mg Docusate Sodium (Colace -) 100 mg PO BID [facility] Last Admin: 12/26/18 10:02 Dose: 100 mg Furosemide (Lasix Injection -) 80 mg IVPUSH BID@0600,1400 [facility] Last Admin: 12/26/18 14:45 Dose: 80 mg Insulin Aspart (Novolog Mix 70/30 Vial) 30 units SQ BID@0700,2200 [facility] Last Admin: 12/26/18 06:04 Dose: 30 units Lactobacillus Acidophilus (Bacid -) 1 tab PO DAILY [facility] Last Admin: 12/26/18 10:02 Dose: 1 tab Magnesium Hydroxide (Milk Of Magnesia -) 30 ml PO DAILY PRN PRN Reason: CONSTIPATION Metoclopramide HCl (Reglan -) 10 mg PO TIDAC [facility] Last Admin: 12/26/18 11:18 Dose: 10 mg Nystatin (Mycostatin Cream -) 1 applic TP BID [facility] Last Admin: 12/26/18 10:03 Dose: 1 applic Oxycodone HCl (Roxicodone -) 30 mg PO Q3H PRN PRN Reason: PAIN LEVEL 6-10 Last Admin: 12/26/18 12:34 Dose: 30 mg Polyethylene Glycol (Miralax (For Daily Use) -) 17 gm PO DAILY [facility] Last Admin: 12/26/18 10:13 Dose: 17 gm Sodium Chloride ([place] Nasal [place] -) 2 spray NS TID PRN PRN Reason: NASAL CONGESTION ASSESSMENT/PLAN: 53 yo M PMH of IDDM, HTN, HLD, ACS, rib osteomylitis, prior MRSA bacteremia and endocarditis, Hep C, non healing wounds presented to hospital with acute SOB and chest pain. pt is requiring HFNC. Neuro: -pt is AAOx3 -c/w oxycodone for chronic pain-confirmed dose w/ home pharmacy Cardio: Acute HF exacerbation, sob, possible PNA, h/o remote endocarditis (2001) -c/w tele monitoring -ECHO shows EF 60-65%. mild -increase to lasix 80 BID as per cardio recs -cardio recs appreciated -daily weights. -CXR reviewed, b/l pleural effusion. recheck xr tomorrow -c/w home bp mgmt -trops neg - ECG non-ischemic - ? chest wall muscle strain sec to work of breathing - consider repeat stress test once better diuresed Pulm -FIDEL screening -saturating well on HFNC, wean as tolerated Endo: IDDM -c/w insulin Dispo: continue ICU monitoring Visit type - Emergency Visit Emergency Visit: No - New Patient This patient is new to me today: Yes - Critical Care Critical Care patient: Yes Total Critical Care Time (in minutes): 37 Critical Care Statement: The care of this patient involved high complexity decision making to prevent further life threatening deterioration of the patient 's condition and/or to evaluate & treat vital organ system(s) failure or risk of failure. ATTENDING PHYSICIAN STATEMENT I saw and evaluated the patient. I reviewed the resident's note and discussed the case with the resident. I agree with the resident's findings and plan as documented. SUBJECTIVE: OBJECTIVE: ASSESSMENT AND PLAN:
[2018-12-26] MEDS: SILVER SULFADIAZINE 1% TOP CREAM 400 GM JAR TP SCH (20:30)
[2018-12-26] MEDS: ATORVASTATIN CA 20 MG TABLET (FP) PO SCH (21:45)
[2018-12-27] MEDS: oxyCODONE HCL 5 MG TABLET PO PRN ×3 (02:16→17:59)
[2018-12-27 05:57] LABS: BASO % 0.8 % (0-2.0); EOS % 1.2 % (0-4.5); HEMATOCRIT 34.6 % (35.4-49); HEMOGLOBIN 11.3 GM/dL (11.7-16.9); LYMPH % 17.7 % (8-40); MCH 26.9 pg (25.7-33.7); MCHC 32.8 g/dl (32.0-35.9); MEAN CELL VOLUME 82.1 fl (80-96); MEAN PLT VOLUME 8.4 fl (7.5-11.1); MONO % 6.5 % (3.8-10.2); NEUT % 73.8 % (42.8-82.8); PLATELET COUNT 226 K/MM3 (134-434); RBC 4.21 M/mm3 (4.00-5.60); RDW 15.3 % (11.9-15.9); WHITE BLOOD COUNT 10.3 K/mm3 (4.0-10.0)
[2018-12-27] MEDS ORDERED: FUROSEMIDE 80 MG, FUROSEMIDE 20 MG PO SCH (06:00)
[2018-12-27] MEDS ORDERED: FUROSEMIDE 40 MG TABLET (FP) PO SCH (06:00)
[2018-12-27 06:26] LABS: ALBUMIN 2.9 g/dl (3.4-5.0); BILIRUBIN,TOTAL 0.6 mg/dL (0.2-1); BLOOD UREA NITROGEN 20.3 mg/dL (7-18); CALCIUM 8.5 mg/dL (8.5-10.1); CREATININE 1.1 mg/dL (0.55-1.3); MAGNESIUM 2.3 mg/dL (1.8-2.4); PHOSPHOROUS 3.8 mg/dL (2.5-4.9); POTASSIUM 3.6 mmol/L (3.5-5.1); TOT PROT 6.5 g/dl (6.4-8.2)
[2018-12-27] MEDS ORDERED: FUROSEMIDE 20 MG TABLET (FP) ONE (06:44)
[2018-12-27] MEDS ORDERED: FUROSEMIDE 40 MG TABLET (FP) ONE (06:44)
[2018-12-27] MEDS ORDERED: PT OWN MED DRAWER 7, Y5N ONE ×3 (06:44→17:53)
[2018-12-27] MEDS: METOCLOPRAMIDE HCL 10 MG TABLET (FP) PO SCH ×3 (07:16→17:00)
[2018-12-27] MEDS: INSULIN (NOVOLOG MIX 70/30) 100 UNITS/ML MDV SQ SCH ×2 (07:16→21:39)
[2018-12-27] MEDS: ALPRAZolam 2 MG TABLET PO PRN ×3 (07:53→21:31)
[2018-12-27] MEDS: LACTOBACILLUS ACIDOPHILUS 1 TABLET PO SCH (10:13)
[2018-12-27] MEDS: cloNIDine HCL 0.1 MG TABLET PO SCH ×2 (10:13→23:58)
[2018-12-27] MEDS: ASPIRIN 81 MG CHEWABLE TABLETS PO SCH (10:13)
[2018-12-27] MEDS: amLODIPine BESYLATE 5 MG TABLET (FP) PO SCH (10:14)
[2018-12-27] MEDS: DOCUSATE SODIUM 100 MG CAPSULE (FP) PO SCH ×2 (10:14→21:31)
[2018-12-27] MEDS: CALCIUM 500MG/VIT-D 200 UNITS COMBO TABLET (FP) PO SCH ×2 (10:14→21:31)
[2018-12-27] MEDS: POLYETHYLENE GLYCOL 3350 119 GM BTL PO SCH ×3 (10:14→21:34)
[2018-12-27] MEDS: NYSTATIN 100,000 UNIT/GM TOPICAL CREAM 15 GM TUBE TP SCH ×2 (10:15→21:32)
[2018-12-27] MEDS: SILVER SULFADIAZINE 1% TOP CREAM 400 GM JAR TP SCH (10:15)
--- NOTE | 2018-12-27 10:27 | PN ---
Progress Note (short form) - Note Progress Note: s: sob improving. no chest pain, palps, dizziness Current Medications Acetaminophen (Tylenol -) 325 mg PO Q6H PRN PRN Reason: PAIN Alprazolam (Xanax -) 2 mg PO Q6H PRN PRN Reason: ANXIETY Last Admin: 12/27/18 07:53 Dose: 2 mg Amlodipine Besylate (Norvasc -) 5 mg PO DAILY [facility] Last Admin: 12/27/18 10:14 Dose: 5 mg Aspirin (Asa -) 81 mg PO DAILY [facility] Last Admin: 12/27/18 10:13 Dose: 81 mg Atorvastatin Calcium (Lipitor -) 20 mg PO HS [facility] Last Admin: 12/26/18 21:45 Dose: 20 mg Calcium Carbonate/Cholecalciferol (Os-Tra 500+D -) 1 tab PO BID [facility] Last Admin: 12/27/18 10:14 Dose: 1 tab Clonidine (Catapres -) 0.2 mg PO BID [facility] Last Admin: 12/27/18 10:13 Dose: 0.2 mg Docusate Sodium (Colace -) 100 mg PO BID [facility] Last Admin: 12/27/18 10:14 Dose: 100 mg Furosemide (Lasix -) 100 mg PO BID@0600,1400 [facility] Insulin Aspart (Novolog Mix 70/30 Vial) 30 units SQ BID@0700,2200 [facility] Last Admin: 12/27/18 07:16 Dose: Not Given Lactobacillus Acidophilus (Bacid -) 1 tab PO DAILY [facility] Last Admin: 12/27/18 10:13 Dose: 1 tab Magnesium Hydroxide (Milk Of Magnesia -) 30 ml PO DAILY PRN PRN Reason: CONSTIPATION Metoclopramide HCl (Reglan -) 10 mg PO TIDAC [facility] Last Admin: 12/27/18 10:15 Dose: 10 mg Nystatin (Mycostatin Cream -) 1 applic TP BID [facility] Last Admin: 12/27/18 10:15 Dose: 1 applic Oxycodone HCl (Roxicodone -) 30 mg PO Q3H PRN PRN Reason: PAIN LEVEL 6-10 Last Admin: 12/27/18 02:16 Dose: 30 mg Polyethylene Glycol (Miralax (For Daily Use) -) 17 gm PO DAILY [facility] Last Admin: 12/27/18 10:14 Dose: 17 gm Silver Sulfadiazine (Silvadene -) 1 applic TP DAILY [facility] Last Admin: 12/27/18 10:15 Dose: 1 applic Sodium Chloride ([place] Nasal Thomas -) 2 spray NS TID PRN PRN Reason: NASAL CONGESTION Vital Signs Period Temp Pulse Resp BP Sys/Cross Pulse Ox Last 24 Hr 98 F-98.2 F 55-72 18-22 109-182/48-83 99-99 Constitutional: Yes: No Distress, Calm, Obese Cardiovascular: Yes: Regular Rate and Rhythm (soft intensity sounds), S1, S2. No: JVD (++ tds exam), Gallop, Murmur Respiratory: Yes: Regular, CTA Bilaterally. No: Accessory Muscle Use, Rales, Wheezes Extremities: No: Cold Edema: No (s/p R AKA) Neurological: Yes: Alert, Oriented Psychiatric: No: Agitated Assessment/Plan EKG: sinus, low voltage, nl intervals, no ischemic changes CXR: sherrie pleural effusions CTA chest sherrie pleural effusions with consolidations echo 12/2018 nl RV/LV function, mild aortic root dilation, sm pericardial effusion <1cm tele: sinus Acute HF exacerbation, sob, possible PNA, h/o remote endocarditis (2001): - abx per primary - lasix increased this am to 100 mg IV BID, continue, monitor Cr, lytes, daily weights - echo nl LV function - outpt FIDEL eval chest pain: - atyp CP, present constantly - trop neg x2 - ECG non-ischemic - ? chest wall muscle strain sec to work of breathing - consider repeat stress test once better diuresed, if etiology of CP remains uncertain DM - manage per primary HTN - bp stable - cont home meds HLD - cont statin
--- NOTE | 2018-12-27 11:37 | PN ---
Teaching Attending Note Name of Resident: Neetu Quiros ATTENDING PHYSICIAN STATEMENT I saw and evaluated the patient. I reviewed the resident's note and discussed the case with the resident. I agree with the resident's findings and plan as documented. SUBJECTIVE: Patient seen and examined in the ICU. Awake and alert. Less tachypneic on HFNC (50% / 50% L) Denies CP. Some dry cough. Intake & Output 12/24/18 12/25/18 12/26/18 12/27/18 23:59 23:59 23:59 23:59 Intake Total 820 1490 950 200 Output Total 6525 4900 5600 1550 Balance -5705 -3410 -4650 -1350 Weight 284 lb 6.341 oz 283 lb 3.2 oz 271 lb 267 lb 8 oz Last Vital Signs Temp Pulse Resp BP Pulse Ox 98.2 F 69 19 133/65 99 12/27/18 10:00 12/27/18 10:00 12/27/18 10:00 12/27/18 10:00 12/27/18 09:00 Active Medications Acetaminophen (Tylenol -) 325 mg PO Q6H PRN PRN Reason: PAIN Alprazolam (Xanax -) 2 mg PO Q6H PRN PRN Reason: ANXIETY Last Admin: 12/27/18 07:53 Dose: 2 mg Amlodipine Besylate (Norvasc -) 5 mg PO DAILY [facility] Last Admin: 12/27/18 10:14 Dose: 5 mg Aspirin (Asa -) 81 mg PO DAILY [facility] Last Admin: 12/27/18 10:13 Dose: 81 mg Atorvastatin Calcium (Lipitor -) 20 mg PO HS [facility] Last Admin: 12/26/18 21:45 Dose: 20 mg Calcium Carbonate/Cholecalciferol (Os-Tra 500+D -) 1 tab PO BID [facility] Last Admin: 12/27/18 10:14 Dose: 1 tab Clonidine (Catapres -) 0.2 mg PO BID [facility] Last Admin: 12/27/18 10:13 Dose: 0.2 mg Docusate Sodium (Colace -) 100 mg PO BID [facility] Last Admin: 12/27/18 10:14 Dose: 100 mg Furosemide (Lasix -) 100 mg PO BID@0600,1400 [facility] Insulin Aspart (Novolog Mix 70/30 Vial) 30 units SQ BID@0700,2200 [facility] Last Admin: 12/27/18 07:16 Dose: Not Given Lactobacillus Acidophilus (Bacid -) 1 tab PO DAILY [facility] Last Admin: 12/27/18 10:13 Dose: 1 tab Magnesium Hydroxide (Milk Of Magnesia -) 30 ml PO DAILY PRN PRN Reason: CONSTIPATION Metoclopramide HCl (Reglan -) 10 mg PO TIDAC [facility] Last Admin: 12/27/18 10:15 Dose: 10 mg Nystatin (Mycostatin Cream -) 1 applic TP BID [facility] Last Admin: 12/27/18 10:15 Dose: 1 applic Oxycodone HCl (Roxicodone -) 30 mg PO Q3H PRN PRN Reason: PAIN LEVEL 6-10 Last Admin: 12/27/18 10:42 Dose: 30 mg Polyethylene Glycol (Miralax (For Daily Use) -) 17 gm PO DAILY [facility] Last Admin: 12/27/18 10:14 Dose: 17 gm Silver Sulfadiazine (Silvadene -) 1 applic TP DAILY [facility] Last Admin: 12/27/18 10:15 Dose: 1 applic Sodium Chloride ([place] Nasal [place] -) 2 spray NS TID PRN PRN Reason: NASAL CONGESTION EXAM: gen: awake and alert, less tachypneic at rest HEENT: enucleated L eye; blind R, MMM chest: b/l crackles, diminished bases heart: RRR abd: obese, soft, non-tender ext: R BKA, edema, L foot ulcer skin: warm, dry Laboratory Results - last 24 hr 12/26/18 12/26/18 12/26/18 10:59 13:11 21:37 WBC RBC Hgb Hct MCV MCH MCHC RDW Plt Count MPV Absolute Neuts (auto) Neutrophils % Lymphocytes % Monocytes % Eosinophils % Basophils % Nucleated RBC % Sodium Potassium Chloride Carbon Dioxide Anion Gap BUN Creatinine Est GFR (CKD-EPI)AfAm Est GFR (CKD-EPI)NonAf POC Glucometer 258 Random Glucose Lactic Acid 1.5 Calcium Phosphorus Magnesium Total Bilirubin AST ALT Alkaline Phosphatase Troponin I < 0.02 Total Protein Albumin 12/27/18 12/27/18 12/27/18 05:25 05:25 05:41 WBC 10.3 H RBC 4.21 Hgb 11.3 L Hct 34.6 L MCV 82.1 MCH 26.9 MCHC 32.8 RDW 15.3 Plt Count 226 MPV 8.4 Absolute Neuts (auto) 7.6 Neutrophils % 73.8 Lymphocytes % 17.7 Monocytes % 6.5 Eosinophils % 1.2 Basophils % 0.8 Nucleated RBC % 0 Sodium 139 Potassium 3.6 Chloride 100 Carbon Dioxide 31 Anion Gap 8 BUN 20.3 H Creatinine 1.1 Est GFR (CKD-EPI)AfAm 87.74 Est GFR (CKD-EPI)NonAf 75.70 POC Glucometer 78 Random Glucose 76 Lactic Acid Calcium 8.5 Phosphorus 3.8 Magnesium 2.3 Total Bilirubin 0.6 AST 24 ALT 22 Alkaline Phosphatase 91 Troponin I Total Protein 6.5 Albumin 2.9 L ASSESSMENT/PLAN: Hypoxemic respiratory failure Bileteral pleural effusions Mcallister not suspect PNA IDDM Hypoglycemia -Wean HFNC O2 as tolerated -Diuresis - Lasix BID -Hold on Thoracentesis for now -Monitor off Antibiotics -Glycemic control -DVT PPx -Requires continued ICU monitoring for HFNC O2 Dr Rivera Critical care time spent in reviewing chart, evaluating patient and formulating plan - 36 minutes.
[2018-12-27] MEDS: FUROSEMIDE 40 MG TABLET (FP) PO SCH (15:25)
--- NOTE | 2018-12-27 15:47 | PN ---
Physical Exam: SUBJECTIVE: Patient seen and examined at bedside. pt states that breathing has not improved since yesterday. pt states he is urinating alot. OBJECTIVE: Vital Signs Period Temp Pulse Resp BP Sys/Cross Pulse Ox Last 24 Hr 98 F-98.2 F 55-72 18-22 109-182/48-84 99-99 GENERAL: The patient is awake, alert, and fully oriented, in no acute distress. LUNGS: Breath sounds decreased b/l, scattered crackles, no accessory muscle use. HEART: Regular rate and rhythm, S1, S2 without murmur, rub or gallop. ABDOMEN: Soft, diffusely tender to palpation, nondistended, normoactive bowel sounds EXTREMITIES: 2+ pulses, warm, well-perfused, no edema. SKIN: Warm, dry, normal turgor, no rashes or lesions noted Laboratory Results - last 24 hr 12/26/18 12/27/18 12/27/18 21:37 05:25 05:25 WBC 10.3 H RBC 4.21 Hgb 11.3 L Hct 34.6 L MCV 82.1 MCH 26.9 MCHC 32.8 RDW 15.3 Plt Count 226 MPV 8.4 Absolute Neuts (auto) 7.6 Neutrophils % 73.8 Lymphocytes % 17.7 Monocytes % 6.5 Eosinophils % 1.2 Basophils % 0.8 Nucleated RBC % 0 Sodium 139 Potassium 3.6 Chloride 100 Carbon Dioxide 31 Anion Gap 8 BUN 20.3 H Creatinine 1.1 Est GFR (CKD-EPI)AfAm 87.74 Est GFR (CKD-EPI)NonAf 75.70 POC Glucometer 258 Random Glucose 76 Calcium 8.5 Phosphorus 3.8 Magnesium 2.3 Total Bilirubin 0.6 AST 24 ALT 22 Alkaline Phosphatase 91 Total Protein 6.5 Albumin 2.9 L Current Medications Acetaminophen (Tylenol -) 325 mg PO Q6H PRN PRN Reason: PAIN Alprazolam (Xanax -) 2 mg PO Q6H PRN PRN Reason: ANXIETY Last Admin: 12/27/18 15:35 Dose: 2 mg Amlodipine Besylate (Norvasc -) 5 mg PO DAILY [facility] Last Admin: 12/27/18 10:14 Dose: 5 mg Aspirin (Asa -) 81 mg PO DAILY [facility] Last Admin: 12/27/18 10:13 Dose: 81 mg Atorvastatin Calcium (Lipitor -) 20 mg PO HS [facility] Last Admin: 12/26/18 21:45 Dose: 20 mg Calcium Carbonate/Cholecalciferol (Os-Tra 500+D -) 1 tab PO BID [facility] Last Admin: 12/27/18 10:14 Dose: 1 tab Clonidine (Catapres -) 0.2 mg PO BID [facility] Last Admin: 12/27/18 10:13 Dose: 0.2 mg Docusate Sodium (Colace -) 100 mg PO BID [facility] Last Admin: 12/27/18 10:14 Dose: 100 mg Furosemide (Lasix -) 100 mg PO BID@0600,1400 [facility] Last Admin: 12/27/18 15:25 Dose: 100 mg Insulin Aspart (Novolog Mix 70/30 Vial) 30 units SQ BID@0700,2200 [facility] Last Admin: 12/27/18 07:16 Dose: Not Given Lactobacillus Acidophilus (Bacid -) 1 tab PO DAILY [facility] Last Admin: 12/27/18 10:13 Dose: 1 tab Magnesium Hydroxide (Milk Of Magnesia -) 30 ml PO DAILY PRN PRN Reason: CONSTIPATION Metoclopramide HCl (Reglan -) 10 mg PO TIDAC [facility] Last Admin: 12/27/18 10:15 Dose: 10 mg Nystatin (Mycostatin Cream -) 1 applic TP BID [facility] Last Admin: 12/27/18 10:15 Dose: 1 applic Oxycodone HCl (Roxicodone -) 30 mg PO Q3H PRN PRN Reason: PAIN LEVEL 6-10 Last Admin: 12/27/18 10:42 Dose: 30 mg Polyethylene Glycol (Miralax (For Daily Use) -) 17 gm PO BID [facility] Last Admin: 12/27/18 12:00 Dose: Not Given Silver Sulfadiazine (Silvadene -) 1 applic TP DAILY [facility] Last Admin: 12/27/18 10:15 Dose: 1 applic Sodium Chloride ([place] Nasal [place] -) 2 spray NS TID PRN PRN Reason: NASAL CONGESTION ASSESSMENT/PLAN: 53 yo M PMH of IDDM, HTN, HLD, ACS, rib osteomylitis, prior MRSA bacteremia and endocarditis, Hep C, non healing wounds presented to hospital with acute SOB and chest pain. pt is requiring HFNC. Neuro: -pt is AAOx3 -c/w oxycodone for chronic pain-confirmed dose w/ home pharmacy Cardio: Acute HF exacerbation, sob, possible PNA, h/o remote endocarditis (2001) -c/w tele monitoring -ECHO shows EF 60-65%. mild -increase to lasix 100 po BID as per cardio recs -cardio recs appreciated -daily weights. -CXR reviewed, b/l pleural effusion. -c/w home bp mgmt -trops neg - ECG non-ischemic - ? chest wall muscle strain sec to work of breathing - consider repeat stress test once better diuresed Pulm -FIDEL screening -saturating well on HFNC, wean as tolerated Endo: IDDM -c/w insulin Dispo: continue ICU monitoring Visit type - Emergency Visit Emergency Visit: No - New Patient This patient is new to me today: No - Critical Care Critical Care patient: Yes Total Critical Care Time (in minutes): 36 Critical Care Statement: The care of this patient involved high complexity decision making to prevent further life threatening deterioration of the patient 's condition and/or to evaluate & treat vital organ system(s) failure or risk of failure. ATTENDING PHYSICIAN STATEMENT I saw and evaluated the patient. I reviewed the resident's note and discussed the case with the resident. I agree with the resident's findings and plan as documented. SUBJECTIVE: OBJECTIVE: ASSESSMENT AND PLAN:
--- NOTE | 2018-12-27 21:12 | PN ---
Progress Note (short form) - Note Progress Note: seen and examined in ICU HFNC in place Sat90% urine output > 16 liters feel "about the same" c/o chest pain -however known to have chronic osteo ant ribcage Vital Signs Period Temp Pulse Resp BP Sys/Cross Pulse Ox Last 24 Hr 98 F-98.3 F 55-69 16-19 109-182/48-84 99-99 Intake & Output 12/24/18 12/25/18 12/26/18 12/27/18 23:59 23:59 23:59 23:59 Intake Total 820 1490 950 700 Output Total 6525 4900 5600 2600 Balance -4215 -9660 -1040 -1900 Weight 284 lb 6.341 oz 283 lb 3.2 oz 271 lb 267 lb [address] sitting up heart S1/S2 lungs decreased at bases / no wheezing abd obese / soft ext left LE with chronic changes R BKA has open wound at stump CBC, BMP 12/27/18 05:25 12/27/18 05:25 CBC, BMP 12/26/18 05:10 12/26/18 05:10 CXR remains congested CXR bilat pleural effusion larger right CT of chest bilat effusion with consolidation Microbiology 12/24/18 08:48 Blood - Peripheral Venous Blood Culture - Preliminary NO GROWTH OBTAINED AFTER 72 HOURS, INCUBATION TO CONTINUE FOR 2 DAYS. 12/24/18 08:48 Blood - Peripheral Venous Blood Culture - Preliminary NO GROWTH OBTAINED AFTER 72 HOURS, INCUBATION TO CONTINUE FOR 2 DAYS. 12/24/18 05:30 Urine For Antigen Detection Legionella Antigen - Final 12/24/18 05:30 Urine For Antigen Detection Streptococcus pneumoniae Antigen (M - Final 12/24/18 11:10 Urine - Urine Clean Catch Urine Culture - Final NO GROWTH OBTAINED Active Medications Acetaminophen (Tylenol -) 325 mg PO Q6H PRN PRN Reason: PAIN Alprazolam (Xanax -) 2 mg PO Q6H PRN PRN Reason: ANXIETY Last Admin: 12/27/18 15:35 Dose: 2 mg Amlodipine Besylate (Norvasc -) 5 mg PO DAILY [facility] Last Admin: 12/27/18 10:14 Dose: 5 mg Aspirin (Asa -) 81 mg PO DAILY [facility] Last Admin: 12/27/18 10:13 Dose: 81 mg Atorvastatin Calcium (Lipitor -) 20 mg PO HS [facility] Last Admin: 12/26/18 21:45 Dose: 20 mg Calcium Carbonate/Cholecalciferol (Os-Tra 500+D -) 1 tab PO BID [facility] Last Admin: 12/27/18 10:14 Dose: 1 tab Clonidine (Catapres -) 0.2 mg PO BID [facility] Last Admin: 12/27/18 10:13 Dose: 0.2 mg Docusate Sodium (Colace -) 100 mg PO BID [facility] Last Admin: 12/27/18 10:14 Dose: 100 mg Furosemide (Lasix -) 100 mg PO BID@0600,1400 [facility] Last Admin: 12/27/18 15:25 Dose: 100 mg Insulin Aspart (Novolog Mix 70/30 Vial) 30 units SQ BID@0700,2200 [facility] Last Admin: 12/27/18 07:16 Dose: Not Given Lactobacillus Acidophilus (Bacid -) 1 tab PO DAILY [facility] Last Admin: 12/27/18 10:13 Dose: 1 tab Magnesium Hydroxide (Milk Of Magnesia -) 30 ml PO DAILY PRN PRN Reason: CONSTIPATION Metoclopramide HCl (Reglan -) 10 mg PO TIDAC [facility] Last Admin: 12/27/18 17:00 Dose: 10 mg Nystatin (Mycostatin Cream -) 1 applic TP BID [facility] Last Admin: 12/27/18 10:15 Dose: 1 applic Oxycodone HCl (Roxicodone -) 30 mg PO Q3H PRN PRN Reason: PAIN LEVEL 6-10 Last Admin: 12/27/18 17:59 Dose: 30 mg Polyethylene Glycol (Miralax (For Daily Use) -) 17 gm PO BID [facility] Last Admin: 12/27/18 12:00 Dose: Not Given Silver Sulfadiazine (Silvadene -) 1 applic TP DAILY [facility] Last Admin: 12/27/18 10:15 Dose: 1 applic Sodium Chloride ([place] Nasal [place] -) 2 spray NS TID PRN PRN Reason: NASAL CONGESTION ASS/PLAN # new onset HF hypoxemic resp failure due to large bilat effusions Cardiomegaly on CXR/ CT - ECHO done - EF 60%, nl LV/RV function continue IV lasix increased by cardio monitor renal function and lytes, Cr has remained stable I & O - output >16 liters 17 lbs weight loss yet CXR repains congested appreciate Cardio and pulmonary consults # DM ADA diet continue Insulin # Hypoxemic respiratory failure HFNC keep sat > 90% # HTN continue home meds if Bp permits # chronic pain syndrome continue out patient meds # 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 # non healing wound to Stump scheduled for wound clinic as out patient silvadene to open wound / change daily Problem List - Problems (1) Bilateral pleural effusion Code(s): J90 - PLEURAL EFFUSION, NOT ELSEWHERE CLASSIFIED (2) Hypoxemia requiring supplemental oxygen Code(s): R09.02 - HYPOXEMIA; Z99.81 - DEPENDENCE ON SUPPLEMENTAL OXYGEN (3) Amputation of right lower extremity below knee Code(s): Z89.511 - ACQUIRED ABSENCE OF RIGHT LEG BELOW KNEE (4) Anxiety Code(s): F41.9 - ANXIETY DISORDER, UNSPECIFIED (5) Chronic pain Code(s): G89.29 - OTHER CHRONIC PAIN (6) Diabetes mellitus Code(s): E11.9 - TYPE 2 DIABETES MELLITUS WITHOUT COMPLICATIONS (7) HLD (hyperlipidemia) Code(s): E78.5 - HYPERLIPIDEMIA, UNSPECIFIED (8) HTN (hypertension) Code(s): I10 - ESSENTIAL (PRIMARY) HYPERTENSION (9) Hepatitis C Code(s): B19.20 - UNSPECIFIED VIRAL HEPATITIS C WITHOUT HEPATIC COMA (10) Opioid dependence on agonist therapy Code(s): F11.20 - OPIOID DEPENDENCE, UNCOMPLICATED (11) PTSD (post-traumatic stress disorder) Code(s): F43.10 - POST-TRAUMATIC STRESS DISORDER, UNSPECIFIED (12) Peripheral neuropathy Code(s): G62.9 - POLYNEUROPATHY, UNSPECIFIED Qualifiers:
[2018-12-27] MEDS ORDERED: INSULIN SLIDING SCALE (NOVOLOG) 1 VIAL SQ SCH (21:30)
[2018-12-27] MEDS: ATORVASTATIN CA 20 MG TABLET (FP) PO SCH (21:31)
[2018-12-27] MEDS: INSULIN SLIDING SCALE (NOVOLOG) 1 VIAL SQ SCH (21:41)
[2018-12-28] MEDS ORDERED: Insulin (LOG) Aspart 100 UNITS/ML VIAL SQ ONE ×2 (00:32→22:25)
[2018-12-28] MEDS: METOCLOPRAMIDE HCL 10 MG TABLET (FP) PO SCH ×3 (06:00→18:07)
[2018-12-28] MEDS: INSULIN (NOVOLOG MIX 70/30) 100 UNITS/ML MDV SQ SCH ×2 (06:00→22:19)
[2018-12-28] MEDS: INSULIN SLIDING SCALE (NOVOLOG) 1 VIAL SQ SCH ×3 (06:01→18:04)
[2018-12-28] MEDS: FUROSEMIDE 40 MG TABLET (FP) PO SCH ×2 (06:02→16:16)
[2018-12-28 06:10] LABS: BASO % 0.7 % (0-2.0); EOS % 1.9 % (0-4.5); HEMOGLOBIN 12.1 GM/dL (11.7-16.9); LYMPH % 19.6 % (8-40); MCH 27.2 pg (25.7-33.7); MCHC 33.6 g/dl (32.0-35.9); MEAN CELL VOLUME 80.9 fl (80-96); MEAN PLT VOLUME 8.5 fl (7.5-11.1); MONO % 7.3 % (3.8-10.2); NEUT % 70.5 % (42.8-82.8); PLATELET COUNT 224 K/MM3 (134-434); RBC 4.45 M/mm3 (4.00-5.60); RDW 15.3 % (11.9-15.9); WHITE BLOOD COUNT 10.3 K/mm3 (4.0-10.0)
[2018-12-28 06:26] LABS: BILIRUBIN,TOTAL 0.8 mg/dL (0.2-1); BLOOD UREA NITROGEN 21.5 mg/dL (7-18); CALCIUM 9.2 mg/dL (8.5-10.1); CREATININE 1.2 mg/dL (0.55-1.3); MAGNESIUM 2.3 mg/dL (1.8-2.4); PHOSPHOROUS 3.9 mg/dL (2.5-4.9); POTASSIUM 3.9 mmol/L (3.5-5.1); TOT PROT 6.7 g/dl (6.4-8.2)
[2018-12-28] MEDS: ALPRAZolam 2 MG TABLET PO PRN ×3 (09:52→22:18)
[2018-12-28] MEDS: DOCUSATE SODIUM 100 MG CAPSULE (FP) PO SCH ×2 (09:53→22:18)
[2018-12-28] MEDS: amLODIPine BESYLATE 5 MG TABLET (FP) PO SCH (09:53)
[2018-12-28] MEDS: ASPIRIN 81 MG CHEWABLE TABLETS PO SCH (09:53)
[2018-12-28] MEDS: cloNIDine HCL 0.1 MG TABLET PO SCH ×2 (09:54→22:17)
[2018-12-28] MEDS: CALCIUM 500MG/VIT-D 200 UNITS COMBO TABLET (FP) PO SCH ×2 (09:54→22:18)
[2018-12-28] MEDS: LACTOBACILLUS ACIDOPHILUS 1 TABLET PO SCH (09:56)
[2018-12-28] MEDS: POLYETHYLENE GLYCOL 3350 119 GM BTL PO SCH ×2 (09:58→22:19)
[2018-12-28] MEDS: NYSTATIN 100,000 UNIT/GM TOPICAL CREAM 15 GM TUBE TP SCH ×2 (11:03→22:00)
--- NOTE | 2018-12-28 11:16 | PN ---
Progress Note (short form) - Note Progress Note: s: no chest pain, palps, dizziness. stable dyspnea Current Medications Acetaminophen (Tylenol -) 325 mg PO Q6H PRN PRN Reason: PAIN Alprazolam (Xanax -) 2 mg PO Q6H PRN PRN Reason: ANXIETY Last Admin: 12/28/18 09:52 Dose: 2 mg Amlodipine Besylate (Norvasc -) 5 mg PO DAILY [facility] Last Admin: 12/28/18 09:53 Dose: 5 mg Aspirin (Asa -) 81 mg PO DAILY [facility] Last Admin: 12/28/18 09:53 Dose: 81 mg Atorvastatin Calcium (Lipitor -) 20 mg PO HS [facility] Last Admin: 12/27/18 21:31 Dose: 20 mg Calcium Carbonate/Cholecalciferol (Os-Tra 500+D -) 1 tab PO BID [facility] Last Admin: 12/28/18 09:54 Dose: 1 tab Clonidine (Catapres -) 0.2 mg PO BID [facility] Last Admin: 12/28/18 09:54 Dose: 0.2 mg Docusate Sodium (Colace -) 100 mg PO BID [facility] Last Admin: 12/28/18 09:53 Dose: 100 mg Furosemide (Lasix -) 100 mg PO BID@0600,1400 [facility] Last Admin: 12/28/18 06:02 Dose: 100 mg Insulin Aspart (Novolog Mix 70/30 Vial) 30 units SQ BID@0700,2200 [facility] Last Admin: 12/28/18 06:00 Dose: 30 units Insulin Aspart (Novolog Vial Sliding Scale -) 1 vial SQ TIDAC [facility]; Protocol Last Admin: 12/28/18 06:01 Dose: Not Given Lactobacillus Acidophilus (Bacid -) 1 tab PO DAILY [facility] Last Admin: 12/28/18 09:56 Dose: 1 tab Magnesium Hydroxide (Milk Of Magnesia -) 30 ml PO DAILY PRN PRN Reason: CONSTIPATION Metoclopramide HCl (Reglan -) 10 mg PO TIDAC [facility] Last Admin: 12/28/18 06:00 Dose: Not Given Nystatin (Mycostatin Cream -) 1 applic TP BID [facility] Last Admin: 12/27/18 21:32 Dose: 1 applic Oxycodone HCl (Roxicodone -) 30 mg PO Q3H PRN PRN Reason: PAIN LEVEL 6-10 Last Admin: 12/28/18 00:00 Dose: 30 mg Polyethylene Glycol (Miralax (For Daily Use) -) 17 gm PO BID [facility] Last Admin: 12/28/18 09:58 Dose: 17 gm Silver Sulfadiazine (Silvadene -) 1 applic TP DAILY [facility] Last Admin: 12/27/18 10:15 Dose: 1 applic Sodium Chloride ([place] Nasal [place] -) 2 spray NS TID PRN PRN Reason: NASAL CONGESTION Vital Signs Period Temp Pulse Resp BP Sys/Cross Pulse Ox Last 24 Hr 98.0 F-98.8 F 53-67 12-23 99-152/49-84 94-97 Constitutional: Yes: No Distress, Calm, Obese Cardiovascular: Yes: Regular Rate and Rhythm (soft intensity sounds), S1, S2. No: JVD (++ tds exam), Gallop, Murmur Respiratory: Yes: Regular, CTA Bilaterally. No: Accessory Muscle Use, Rales, Wheezes Extremities: No: Cold Edema: No (s/p R AKA) Neurological: Yes: Alert, Oriented Psychiatric: No: Agitated Assessment/Plan EKG: sinus, low voltage, nl intervals, no ischemic changes CXR: sherrie pleural effusions CTA chest sherrie pleural effusions with consolidations echo 12/2018 nl RV/LV function, mild aortic root dilation, sm pericardial effusion <1cm tele: sinus Acute HF exacerbation, sob, possible PNA, h/o remote endocarditis (2001): - abx per primary -[id number] mg IV BID, continue, weight down, Cr stable. monitor Cr, lytes, daily weights - echo nl LV function - outpt FIDEL eval chest pain: - atyp CP - trop neg x2 - ECG non-ischemic - ? chest wall muscle strain sec to work of breathing - consider repeat stress test once better diuresed, if etiology of CP remains uncertain DM - manage per primary HTN - bp stable - cont home meds HLD - cont statin
--- NOTE | 2018-12-28 12:26 | PN ---
Teaching Attending Note Name of Resident: Evert Prajapati ATTENDING PHYSICIAN STATEMENT I saw and evaluated the patient. I reviewed the resident's note and discussed the case with the resident. I agree with the resident's findings and plan as documented. SUBJECTIVE: Pt seen and examined in the ICU. Remains on HFOT 40% FiO2, 40L/min. States breathing slightly better. Diuresing well with lasix. OBJECTIVE: Vital Signs Period Temp Pulse Resp BP Sys/Cross Pulse Ox Last 24 Hr 98.0 F-98.8 F 53-67 12-23 99-152/49-82 94-97 Intake & Output 12/25/18 12/26/18 12/27/18 12/28/18 23:59 23:59 23:59 23:59 Intake Total 1490 950 700 Output Total 4900 5600 4400 3070 Balance -3410 -4650 -3700 -3070 Weight 128.457 kg 122.924 kg 121.336 kg 118.478 kg Gen: mildly tachypneic at rest Heart: RRR Lung: decreased breath sounds at the bases Abd: soft, nontender Ext: + edema, R BKA CBC, BMP 12/28/18 05:20 12/28/18 05:20 Active Medications Acetaminophen (Tylenol -) 325 mg PO Q6H PRN PRN Reason: PAIN Alprazolam (Xanax -) 2 mg PO Q6H PRN PRN Reason: ANXIETY Last Admin: 12/28/18 09:52 Dose: 2 mg Amlodipine Besylate (Norvasc -) 5 mg PO DAILY [facility] Last Admin: 12/28/18 09:53 Dose: 5 mg Aspirin (Asa -) 81 mg PO DAILY [facility] Last Admin: 12/28/18 09:53 Dose: 81 mg Atorvastatin Calcium (Lipitor -) 20 mg PO HS [facility] Last Admin: 12/27/18 21:31 Dose: 20 mg Calcium Carbonate/Cholecalciferol (Os-Tra 500+D -) 1 tab PO BID [facility] Last Admin: 12/28/18 09:54 Dose: 1 tab Clonidine (Catapres -) 0.2 mg PO BID [facility] Last Admin: 12/28/18 09:54 Dose: 0.2 mg Docusate Sodium (Colace -) 100 mg PO BID [facility] Last Admin: 12/28/18 09:53 Dose: 100 mg Furosemide (Lasix -) 100 mg PO BID@0600,1400 [facility] Last Admin: 12/28/18 06:02 Dose: 100 mg Heparin Sodium (Porcine) (Heparin -) 5,000 unit SQ TID [facility] Insulin Aspart (Novolog Mix 70/30 Vial) 30 units SQ BID@0700,2200 [facility] Last Admin: 12/28/18 06:00 Dose: 30 units Insulin Aspart (Novolog Vial Sliding Scale -) 1 vial SQ TIDAC [facility]; Protocol Last Admin: 12/28/18 12:03 Dose: Not Given Lactobacillus Acidophilus (Bacid -) 1 tab PO DAILY [facility] Last Admin: 12/28/18 09:56 Dose: 1 tab Magnesium Hydroxide (Milk Of Magnesia -) 30 ml PO DAILY PRN PRN Reason: CONSTIPATION Metoclopramide HCl (Reglan -) 10 mg PO TIDAC [facility] Last Admin: 12/28/18 06:00 Dose: Not Given Nystatin (Mycostatin Cream -) 1 applic TP BID [facility] Last Admin: 12/27/18 21:32 Dose: 1 applic Oxycodone HCl (Roxicodone -) 30 mg PO Q3H PRN PRN Reason: PAIN LEVEL 6-10 Last Admin: 12/28/18 00:00 Dose: 30 mg Polyethylene Glycol (Miralax (For Daily Use) -) 17 gm PO BID [facility] Last Admin: 12/28/18 09:58 Dose: 17 gm Silver Sulfadiazine (Silvadene -) 1 applic TP DAILY [facility] Last Admin: 12/27/18 10:15 Dose: 1 applic Sodium Chloride ([place] Nasal [place] -) 2 spray NS TID PRN PRN Reason: NASAL CONGESTION ASSESSMENT AND PLAN: Acute Hypoxic Respiratory Failure Acute on Chronic Diastolic Heart Failure Volume Overload Pleural Effusions from above HTN DM Hyperlipidemia - continue lasix - monitor urine output, creatinine - keep net negative - monitor CXR with diuresis - taper HFOT to keep SpO2 >90% - DVT prophylaxis - ICU monitoring while on HFOT critical care time spent in reviewing chart, evaluating patient and formulating plan 35 min
[2018-12-28] MEDS ORDERED: PT OWN MED DRAWER 7, Y5N ONE ×2 (13:09→18:05)
[2018-12-28] MEDS: oxyCODONE HCL 5 MG TABLET PO PRN ×3 (13:12→22:21)
--- NOTE | 2018-12-28 15:18 | PN ---
Physical Exam: SUBJECTIVE: Patient seen and examined at bedside in the ICU. Patient on hi-flow oxygen at 40L/min, 30% O2. Reports that his breathing has mildly improved. Continues diuresis on lasix. OBJECTIVE: Vital Signs Period Temp Pulse Resp BP Sys/Cross Pulse Ox Last 24 Hr 98.0 F-98.8 F 52-67 12-24 99-152/49-82 94-97 GENERAL: The patient is awake, alert, and fully oriented, in no acute distress. HEAD: Normal with no signs of trauma. EYES: PERRL, extraocular movements intact, sclera anicteric, conjunctiva clear. No ptosis. ENT: Ears normal, nares patent, oropharynx clear without exudates, moist mucous membranes. NECK: Trachea midline, full range of motion, supple. LUNGS: Mild tachypnea, decreased breath sounds at bilateral bases, no wheezes, no crackles, no accessory muscle use. HEART: Regular rate and rhythm, S1, S2 without murmur, rub or gallop. ABDOMEN: Soft, nontender, nondistended, normoactive bowel sounds, no guarding, no rebound, no hepatosplenomegaly, no masses. EXTREMITIES: Positive edema. Right BKA. NEUROLOGICAL: Cranial nerves II through XII grossly intact. Normal speech, gait not observed. SKIN: Warm, dry, normal turgor, no rashes or lesions noted Laboratory Results - last 24 hr 12/27/18 12/27/18 12/28/18 21:18 23:17 01:50 WBC RBC Hgb Hct MCV MCH MCHC RDW Plt Count MPV Absolute Neuts (auto) Neutrophils % Lymphocytes % Monocytes % Eosinophils % Basophils % Nucleated RBC % Sodium Potassium Chloride Carbon Dioxide Anion Gap BUN Creatinine Est GFR (CKD-EPI)AfAm Est GFR (CKD-EPI)NonAf POC Glucometer 438 354 254 Random Glucose Calcium Phosphorus Magnesium Total Bilirubin AST ALT Alkaline Phosphatase Total Protein Albumin 12/28/18 12/28/18 12/28/18 05:20 05:20 05:57 WBC 10.3 H RBC 4.45 Hgb 12.1 Hct 36.0 MCV 80.9 MCH 27.2 MCHC 33.6 RDW 15.3 Plt Count 224 MPV 8.5 Absolute Neuts (auto) 7.3 Neutrophils % 70.5 Lymphocytes % 19.6 Monocytes % 7.3 Eosinophils % 1.9 Basophils % 0.7 Nucleated RBC % 0 Sodium 136 Potassium 3.9 Chloride 97 L Carbon Dioxide 33 H Anion Gap 6 L BUN 21.5 H Creatinine 1.2 Est GFR (CKD-EPI)AfAm 78.98 Est GFR (CKD-EPI)NonAf 68.14 POC Glucometer 164 Random Glucose 146 H Calcium 9.2 Phosphorus 3.9 Magnesium 2.3 Total Bilirubin 0.8 AST 21 ALT 24 Alkaline Phosphatase 97 Total Protein 6.7 Albumin 3.0 L 12/28/18 11:29 WBC RBC Hgb Hct MCV MCH MCHC RDW Plt Count MPV Absolute Neuts (auto) Neutrophils % Lymphocytes % Monocytes % Eosinophils % Basophils % Nucleated RBC % Sodium Potassium Chloride Carbon Dioxide Anion Gap BUN Creatinine Est GFR (CKD-EPI)AfAm Est GFR (CKD-EPI)NonAf POC Glucometer 121 Random Glucose Calcium Phosphorus Magnesium Total Bilirubin AST ALT Alkaline Phosphatase Total Protein Albumin Active Medications Generic Name Dose Route Start Last Admin Trade Name Freq PRN Reason Stop Dose Admin Acetaminophen 325 mg 12/24/18 10:28 Tylenol - PO Q6H PRN PAIN Alprazolam 2 mg 12/24/18 10:28 12/28/18 09:52 Xanax - PO 2 mg Q6H PRN Administration ANXIETY Amlodipine Besylate 5 mg 12/25/18 10:00 12/28/18 09:53 Norvasc - PO 5 mg DAILY [facility] Administration Aspirin 81 mg 12/25/18 10:00 12/28/18 09:53 Asa - PO 81 mg DAILY [facility] Administration Atorvastatin Calcium 20 mg 12/24/18 22:00 12/27/18 21:31 Lipitor - PO 20 mg HS [facility] Administration Calcium Carbonate/Cholecalciferol 1 tab 12/24/18 22:00 12/28/18 09:54 Os-Tra 500+D - PO 1 tab BID [facility] Administration Clonidine 0.2 mg 12/24/18 22:00 12/28/18 09:54 Catapres - PO 0.2 mg BID [facility] Administration Docusate Sodium 100 mg 12/24/18 22:00 12/28/18 09:53 Colace - PO 100 mg BID [facility] Administration Furosemide 100 mg 12/27/18 14:00 12/28/18 06:02 Lasix - PO 100 mg BID@0600,1400 [facility] Administration Heparin Sodium (Porcine) 5,000 unit 12/28/18 14:00 Heparin - SQ TID [facility] Insulin Aspart 30 units 12/24/18 22:02 12/28/18 06:00 Novolog Mix 70/30 Vial SQ 30 units BID@0700,2200 [facility] Administration Insulin Aspart 1 vial 12/27/18 21:30 12/28/18 12:03 Novolog Vial Sliding Scale - SQ Not Given TIDAC [facility] Protocol Lactobacillus Acidophilus 1 tab 12/25/18 10:00 12/28/18 09:56 Bacid - PO 1 tab DAILY [facility] Administration Magnesium Hydroxide 30 ml 12/24/18 10:28 Milk Of Magnesia - PO DAILY PRN CONSTIPATION Metoclopramide HCl 10 mg 12/24/18 11:00 12/28/18 13:10 Reglan - PO 10 mg TIDAC [facility] Administration Nystatin 1 applic 12/24/18 22:00 12/27/18 21:32 Mycostatin Cream - TP 1 applic BID [facility] Administration Oxycodone HCl 30 mg 12/24/18 10:28 12/28/18 13:12 Roxicodone - PO 30 mg Q3H PRN Administration PAIN LEVEL 6-10 Polyethylene Glycol 17 gm 12/27/18 12:00 12/28/18 09:58 Miralax (For Daily Use) - PO 17 gm BID [facility] Administration Silver Sulfadiazine 1 applic 12/26/18 18:30 12/27/18 10:15 Silvadene - TP 1 applic DAILY [facility] Administration Sodium Chloride 2 spray 12/26/18 06:18 [place] Nasal [place] - NS TID PRN NASAL CONGESTION ASSESSMENT/PLAN: 53 yo M PMH of IDDM, HTN, HLD, ACS, rib osteomylitis, prior MRSA bacteremia and endocarditis, Hep C, non healing wounds presented to hospital with acute SOB and chest pain. pt is requiring HFNC. Neuro: -pt is AAOx3 -c/w oxycodone for chronic pain-confirmed dose w/ home pharmacy Cardio: Acute HF exacerbation, sob, possible PNA, h/o remote endocarditis (2001) -c/w tele monitoring -ECHO shows EF 60-65%. mild -increase to lasix 100 po BID as per cardio recs -cardio recs appreciated -daily weights. -CXR reviewed, b/l pleural effusion. -c/w home bp mgmt -trops neg - ECG non-ischemic - ? chest wall muscle strain sec to work of breathing - consider repeat stress test once better diuresed - US of LE shows no occlusion, stenosis, or DVTs Pulm -FIDEL screening -saturating well on HFNC, wean as tolerated Endo: IDDM -c/w insulin DVT ppx: heparin 5000 units TID Dispo: continue ICU monitoring Visit type - Emergency Visit Emergency Visit: Yes ED Registration Date: 12/24/18 Care time: The patient presented to the Emergency Department on the above date and was hospitalized for further evaluation of their emergent condition. - New Patient This patient is new to me today: No - Critical Care Critical Care patient: Yes Total Critical Care Time (in minutes): 35 Critical Care Statement: The care of this patient involved high complexity decision making to prevent further life threatening deterioration of the patient 's condition and/or to evaluate & treat vital organ system(s) failure or risk of failure. ATTENDING PHYSICIAN STATEMENT I saw and evaluated the patient. I reviewed the resident's note and discussed the case with the resident. I agree with the resident's findings and plan as documented. SUBJECTIVE: OBJECTIVE: ASSESSMENT AND PLAN:
[2018-12-28] MEDS: HEPARIN NA (PORCINE) 5,000 UNITS/ML 1ML VIAL SQ SCH ×2 (16:18→22:18)
--- NOTE | 2018-12-28 18:00 | PN ---
Progress Note (short form) - Note Progress Note: seen and examined in ICU HFNC in place Sat90% urine output > 16 liters 'tired' - Vital Signs Period Temp Pulse Resp BP Sys/Cross Pulse Ox Last 24 Hr 98.0 F-98.8 F 52-67 12-24 99-152/49-82 94-97 Intake & Output 12/25/18 12/26/18 12/27/18 12/28/18 23:59 23:59 23:59 23:59 Intake Total 1490 950 700 300 Output Total 4900 5600 4400 3920 Balance -1050 -5585 -7992 -8063 Weight 283 lb 3.2 oz 271 lb 267 lb 8 oz 261 lb 3.[address] sitting up heart S1/S2 lungs decreased at bases / no wheezing abd obese / soft ext left LE with chronic changes R BKA has open wound at stump CBC, BMP 12/28/18 05:20 12/28/18 05:20 CBC, BMP 12/27/18 05:25 12/27/18 05:25 CXR remains congested CXR bilat pleural effusion larger right CT of chest bilat effusion with consolidation Microbiology 12/24/18 08:48 Blood - Peripheral Venous Blood Culture - Preliminary NO GROWTH OBTAINED AFTER 96 HOURS, INCUBATION TO CONTINUE FOR 1 DAYS. 12/24/18 08:48 Blood - Peripheral Venous Blood Culture - Preliminary NO GROWTH OBTAINED AFTER 96 HOURS, INCUBATION TO CONTINUE FOR 1 DAYS. 12/24/18 05:30 Urine For Antigen Detection Legionella Antigen - Final 12/24/18 05:30 Urine For Antigen Detection Streptococcus pneumoniae Antigen (M - Final 12/24/18 11:10 Urine - Urine Clean Catch Urine Culture - Final NO GROWTH OBTAINED Active Medications Acetaminophen (Tylenol -) 325 mg PO Q6H PRN PRN Reason: PAIN Alprazolam (Xanax -) 2 mg PO Q6H PRN PRN Reason: ANXIETY Last Admin: 12/28/18 16:14 Dose: 2 mg Amlodipine Besylate (Norvasc -) 5 mg PO DAILY [facility] Last Admin: 12/28/18 09:53 Dose: 5 mg Aspirin (Asa -) 81 mg PO DAILY [facility] Last Admin: 12/28/18 09:53 Dose: 81 mg Atorvastatin Calcium (Lipitor -) 20 mg PO HS [facility] Last Admin: 12/27/18 21:31 Dose: 20 mg Calcium Carbonate/Cholecalciferol (Os-Tra 500+D -) 1 tab PO BID [facility] Last Admin: 12/28/18 09:54 Dose: 1 tab Clonidine (Catapres -) 0.2 mg PO BID [facility] Last Admin: 12/28/18 09:54 Dose: 0.2 mg Docusate Sodium (Colace -) 100 mg PO BID [facility] Last Admin: 12/28/18 09:53 Dose: 100 mg Furosemide (Lasix -) 100 mg PO BID@0600,1400 [facility] Last Admin: 12/28/18 16:16 Dose: 100 mg Heparin Sodium (Porcine) (Heparin -) 5,000 unit SQ TID [facility] Last Admin: 12/28/18 16:18 Dose: 5,000 unit Insulin Aspart (Novolog Mix 70/30 Vial) 30 units SQ BID@0700,2200 [facility] Last Admin: 12/28/18 06:00 Dose: 30 units Insulin Aspart (Novolog Vial Sliding Scale -) 1 vial SQ TIDAC [facility]; Protocol Last Admin: 12/28/18 12:03 Dose: Not Given Lactobacillus Acidophilus (Bacid -) 1 tab PO DAILY [facility] Last Admin: 12/28/18 09:56 Dose: 1 tab Magnesium Hydroxide (Milk Of Magnesia -) 30 ml PO DAILY PRN PRN Reason: CONSTIPATION Metoclopramide HCl (Reglan -) 10 mg PO TIDAC [facility] Last Admin: 12/28/18 13:10 Dose: 10 mg Nystatin (Mycostatin Cream -) 1 applic TP BID [facility] Last Admin: 12/27/18 21:32 Dose: 1 applic Oxycodone HCl (Roxicodone -) 30 mg PO Q3H PRN PRN Reason: PAIN LEVEL 6-10 Last Admin: 12/28/18 13:12 Dose: 30 mg Polyethylene Glycol (Miralax (For Daily Use) -) 17 gm PO BID [facility] Last Admin: 12/28/18 09:58 Dose: 17 gm Silver Sulfadiazine (Silvadene -) 1 applic TP DAILY [facility] Last Admin: 12/27/18 10:15 Dose: 1 applic Sodium Chloride ([place] Nasal [place] -) 2 spray NS TID PRN PRN Reason: NASAL CONGESTION ASS/PLAN # new onset HF hypoxemic resp failure due to large bilat effusions Cardiomegaly on CXR/ CT - ECHO done - EF 60%, nl LV/RV function continue IV lasix increased by cardio monitor renal function and lytes, Cr has remained stable I & O - output >16 liters > 20 lbs weight loss yet CXR repains congested appreciate Cardio and pulmonary consults # DM ADA diet continue Insulin # Hypoxemic respiratory failure HFNC keep sat > 90% # HTN continue home meds if Bp permits # chronic pain syndrome continue out patient meds # 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 # non healing wound to Stump scheduled for wound clinic as out patient silvadene to open wound / change daily Problem List - Problems (1) Bilateral pleural effusion Code(s): J90 - PLEURAL EFFUSION, NOT ELSEWHERE CLASSIFIED (2) Hypoxemia requiring supplemental oxygen Code(s): R09.02 - HYPOXEMIA; Z99.81 - DEPENDENCE ON SUPPLEMENTAL OXYGEN (3) Amputation of right lower extremity below knee Code(s): Z89.511 - ACQUIRED ABSENCE OF RIGHT LEG BELOW KNEE (4) Anxiety Code(s): F41.9 - ANXIETY DISORDER, UNSPECIFIED (5) Chronic pain Code(s): G89.29 - OTHER CHRONIC PAIN (6) Diabetes mellitus Code(s): E11.9 - TYPE 2 DIABETES MELLITUS WITHOUT COMPLICATIONS (7) HLD (hyperlipidemia) Code(s): E78.5 - HYPERLIPIDEMIA, UNSPECIFIED (8) HTN (hypertension) Code(s): I10 - ESSENTIAL (PRIMARY) HYPERTENSION (9) Hepatitis C Code(s): B19.20 - UNSPECIFIED VIRAL HEPATITIS C WITHOUT HEPATIC COMA (10) Opioid dependence on agonist therapy Code(s): F11.20 - OPIOID DEPENDENCE, UNCOMPLICATED (11) PTSD (post-traumatic stress disorder) Code(s): F43.10 - POST-TRAUMATIC STRESS DISORDER, UNSPECIFIED (12) Peripheral neuropathy Code(s): G62.9 - POLYNEUROPATHY, UNSPECIFIED Qualifiers:
[2018-12-28] MEDS: SILVER SULFADIAZINE 1% TOP CREAM 400 GM JAR TP SCH (18:03)
[2018-12-28] MEDS: ATORVASTATIN CA 20 MG TABLET (FP) PO SCH (22:19)
[2018-12-29] MEDS ORDERED: PT OWN MED DRAWER 7, Y5N ONE ×5 (03:19→21:41)
[2018-12-29] MEDS: oxyCODONE HCL 5 MG TABLET PO PRN ×4 (03:40→17:18)
[2018-12-29 06:25] LABS: BASO % 0.5 % (0-2.0); EOS % 2.1 % (0-4.5); HEMATOCRIT 35.6 % (35.4-49); HEMOGLOBIN 11.8 GM/dL (11.7-16.9); MCH 26.9 pg (25.7-33.7); MCHC 33.2 g/dl (32.0-35.9); MEAN PLT VOLUME 8.7 fl (7.5-11.1); MONO % 7.3 % (3.8-10.2); NEUT % 69.1 % (42.8-82.8); PLATELET COUNT 236 K/MM3 (134-434); RBC 4.39 M/mm3 (4.00-5.60); WHITE BLOOD COUNT 9.4 K/mm3 (4.0-10.0)
[2018-12-29] MEDS: FUROSEMIDE 40 MG TABLET (FP) PO SCH ×2 (06:35→13:10)
[2018-12-29] MEDS: INSULIN SLIDING SCALE (NOVOLOG) 1 VIAL SQ SCH ×3 (06:36→16:04)
[2018-12-29] MEDS: HEPARIN NA (PORCINE) 5,000 UNITS/ML 1ML VIAL SQ SCH ×3 (06:36→22:12)
[2018-12-29] MEDS: METOCLOPRAMIDE HCL 10 MG TABLET (FP) PO SCH ×3 (06:44→16:05)
[2018-12-29 06:46] LABS: ALBUMIN 2.8 g/dl (3.4-5.0); BILIRUBIN,TOTAL 0.6 mg/dL (0.2-1); BLOOD UREA NITROGEN 25.2 mg/dL (7-18); CALCIUM 8.5 mg/dL (8.5-10.1); CREATININE 1.1 mg/dL (0.55-1.3); MAGNESIUM 2.2 mg/dL (1.8-2.4); PHOSPHOROUS 3.5 mg/dL (2.5-4.9); POTASSIUM 3.6 mmol/L (3.5-5.1); TOT PROT 6.4 g/dl (6.4-8.2)
[2018-12-29] MEDS: ALPRAZolam 2 MG TABLET PO PRN ×3 (07:49→22:21)
[2018-12-29] MEDS: INSULIN (NOVOLOG MIX 70/30) 100 UNITS/ML MDV SQ SCH ×2 (07:52→22:23)
[2018-12-29] MEDS: POLYETHYLENE GLYCOL 3350 119 GM BTL PO SCH ×2 (08:07→13:12)
[2018-12-29] MEDS: cloNIDine HCL 0.1 MG TABLET PO SCH ×2 (09:19→22:12)
[2018-12-29] MEDS: amLODIPine BESYLATE 5 MG TABLET (FP) PO SCH (09:19)
[2018-12-29] MEDS: LACTOBACILLUS ACIDOPHILUS 1 TABLET PO SCH (09:19)
[2018-12-29] MEDS: DOCUSATE SODIUM 100 MG CAPSULE (FP) PO SCH ×2 (09:19→22:12)
[2018-12-29] MEDS: CALCIUM 500MG/VIT-D 200 UNITS COMBO TABLET (FP) PO SCH ×2 (09:19→22:13)
[2018-12-29] MEDS: ASPIRIN 81 MG CHEWABLE TABLETS PO SCH (09:19)
[2018-12-29] MEDS: NYSTATIN 100,000 UNIT/GM TOPICAL CREAM 15 GM TUBE TP SCH ×3 (09:29→22:13)
[2018-12-29] MEDS: SILVER SULFADIAZINE 1% TOP CREAM 400 GM JAR TP SCH (09:29)
--- NOTE | 2018-12-29 10:11 | PN ---
Progress Note (short form) - Note Progress Note: 53 y/o male found sitting in bed. O2 in place and sat 94. Reports that breathing is markedly improved. C/o pain in ribs, back and intermittent CP. Vital Signs Period Temp Pulse Resp BP Sys/Cross Pulse Ox Last 24 Hr 97.7 F-98.5 F 52-70 12-25 105-132/45-81 98-98 CBC, BMP 12/29/18 05:35 12/29/18 05:35 HEENT- NL Neck- Supple Lungs- CTAB Heart- S1/S2 Abd- Soft, Nt Ext- RT stump wd 80 % gran tissue/ 20 % slough Periwd intact Lt Trace edema Active Medications Acetaminophen (Tylenol -) 325 mg PO Q6H PRN PRN Reason: PAIN Alprazolam (Xanax -) 2 mg PO Q6H PRN PRN Reason: ANXIETY Last Admin: 12/29/18 07:49 Dose: 2 mg Amlodipine Besylate (Norvasc -) 5 mg PO DAILY [facility] Last Admin: 12/29/18 09:19 Dose: 5 mg Aspirin (Asa -) 81 mg PO DAILY [facility] Last Admin: 12/29/18 09:19 Dose: 81 mg Atorvastatin Calcium (Lipitor -) 20 mg PO HS [facility] Last Admin: 12/28/18 22:19 Dose: 20 mg Calcium Carbonate/Cholecalciferol (Os-Tra 500+D -) 1 tab PO BID [facility] Last Admin: 12/29/18 09:19 Dose: 1 tab Clonidine (Catapres -) 0.2 mg PO BID [facility] Last Admin: 12/29/18 09:19 Dose: 0.2 mg Docusate Sodium (Colace -) 100 mg PO BID [facility] Last Admin: 12/29/18 09:19 Dose: 100 mg Furosemide (Lasix -) 100 mg PO BID@0600,1400 [facility] Last Admin: 12/29/18 06:35 Dose: 100 mg Heparin Sodium (Porcine) (Heparin -) 5,000 unit SQ TID [facility] Last Admin: 12/29/18 06:36 Dose: 5,000 unit Insulin Aspart (Novolog Mix 70/30 Vial) 30 units SQ BID@0700,2200 [facility] Last Admin: 12/29/18 07:52 Dose: 30 units Insulin Aspart (Novolog Vial Sliding Scale -) 1 vial SQ TIDAC [facility]; Protocol Last Admin: 12/29/18 06:36 Dose: Not Given Lactobacillus Acidophilus (Bacid -) 1 tab PO DAILY [facility] Last Admin: 12/29/18 09:19 Dose: 1 tab Magnesium Hydroxide (Milk Of Magnesia -) 30 ml PO DAILY PRN PRN Reason: CONSTIPATION Metoclopramide HCl (Reglan -) 10 mg PO TIDAC [facility] Last Admin: 12/29/18 06:44 Dose: 10 mg Nystatin (Mycostatin Cream -) 1 applic TP BID [facility] Last Admin: 12/29/18 09:29 Dose: 1 applic Oxycodone HCl (Roxicodone -) 30 mg PO Q3H PRN PRN Reason: PAIN LEVEL 6-10 Last Admin: 12/29/18 07:47 Dose: 30 mg Polyethylene Glycol (Miralax (For Daily Use) -) 17 gm PO TID [facility] Last Admin: 12/29/18 08:07 Dose: 17 grams Senna (Senna -) 2 tab PO HS [facility] Silver Sulfadiazine (Silvadene -) 1 applic TP DAILY [facility] Last Admin: 12/29/18 09:29 Dose: 1 applic Sodium Chloride ([place] Nasal [place] -) 2 spray NS TID PRN PRN Reason: NASAL CONGESTION ASS/PLAN # new onset HF hypoxemic resp failure due to large bilat effusions Cardiomegaly on CXR/ CT - ECHO done - EF 60%, nl LV/RV function continue IV lasix monitor renal function and lytes. Cr stable > 20 lbs weight loss yet CXR remains congested appreciate Cardio and pulmonary consults # DM- BG 91 today ADA diet continue Insulin and coverage # Hypoxemic respiratory failure HFNC keep sat > 90% # HTN continue clonidine and CCB # chronic pain syndrome continue oxy and Tylenol # non healing wound to Stump scheduled for wound clinic as out patient silvadene to open wound / change daily Problem List - Problems (1) Bilateral pleural effusion Code(s): J90 - PLEURAL EFFUSION, NOT ELSEWHERE CLASSIFIED (2) Hypoxemia requiring supplemental oxygen Code(s): R09.02 - HYPOXEMIA; Z99.81 - DEPENDENCE ON SUPPLEMENTAL OXYGEN (3) Amputation of right lower extremity below knee Code(s): Z89.511 - ACQUIRED ABSENCE OF RIGHT LEG BELOW KNEE (4) Anxiety Code(s): F41.9 - ANXIETY DISORDER, UNSPECIFIED (5) Chronic pain Code(s): G89.29 - OTHER CHRONIC PAIN (6) Diabetes mellitus Code(s): E11.9 - TYPE 2 DIABETES MELLITUS WITHOUT COMPLICATIONS (7) HLD (hyperlipidemia) Code(s): E78.5 - HYPERLIPIDEMIA, UNSPECIFIED (8) HTN (hypertension) Code(s): I10 - ESSENTIAL (PRIMARY) HYPERTENSION (9) Hepatitis C Code(s): B19.20 - UNSPECIFIED VIRAL HEPATITIS C WITHOUT HEPATIC COMA (10) Opioid dependence on agonist therapy Code(s): F11.20 - OPIOID DEPENDENCE, UNCOMPLICATED (11) PTSD (post-traumatic stress disorder) Code(s): F43.10 - POST-TRAUMATIC STRESS DISORDER, UNSPECIFIED (12) Peripheral neuropathy Code(s): G62.9 - POLYNEUROPATHY, UNSPECIFIED Qualifiers:
--- NOTE | 2018-12-29 12:27 | PN ---
Teaching Attending Note Name of Resident: Neetu Quiros ATTENDING PHYSICIAN STATEMENT I saw and evaluated the patient. I reviewed the resident's note and discussed the case with the resident. I agree with the resident's findings and plan as documented. SUBJECTIVE: Patient seen and examined in the ICU. Remains on HFOT 21% FiO2, 40L/min. Overall breathing is improving. Diuresing well with lasix. No CP. OBJECTIVE: Intake & Output 12/26/18 12/27/18 12/28/18 12/29/18 23:59 23:59 23:59 23:59 Intake Total 950 700 660 Output Total 5600 4400 4300 1999 Balance -4650 -3700 -3640 -1999 Weight 271 lb 267 lb 8 oz 261 lb 3.2 oz Last Vital Signs Temp Pulse Resp BP Pulse Ox 98.5 F 65 14 131/77 98 12/29/18 10:00 12/29/18 10:00 12/29/18 10:00 12/29/18 10:00 12/29/18 08:16 Active Medications Acetaminophen (Tylenol -) 325 mg PO Q6H PRN PRN Reason: PAIN Alprazolam (Xanax -) 2 mg PO Q6H PRN PRN Reason: ANXIETY Last Admin: 12/29/18 07:49 Dose: 2 mg Amlodipine Besylate (Norvasc -) 5 mg PO DAILY [facility] Last Admin: 12/29/18 09:19 Dose: 5 mg Aspirin (Asa -) 81 mg PO DAILY [facility] Last Admin: 12/29/18 09:19 Dose: 81 mg Atorvastatin Calcium (Lipitor -) 20 mg PO HS [facility] Last Admin: 12/28/18 22:19 Dose: 20 mg Calcium Carbonate/Cholecalciferol (Os-Tra 500+D -) 1 tab PO BID [facility] Last Admin: 12/29/18 09:19 Dose: 1 tab Clonidine (Catapres -) 0.2 mg PO BID [facility] Last Admin: 12/29/18 09:19 Dose: 0.2 mg Docusate Sodium (Colace -) 100 mg PO BID [facility] Last Admin: 12/29/18 09:19 Dose: 100 mg Furosemide (Lasix -) 100 mg PO BID@0600,1400 [facility] Last Admin: 12/29/18 06:35 Dose: 100 mg Heparin Sodium (Porcine) (Heparin -) 5,000 unit SQ TID [facility] Last Admin: 12/29/18 06:36 Dose: 5,000 unit Insulin Aspart (Novolog Mix 70/30 Vial) 30 units SQ BID@0700,2200 [facility] Last Admin: 12/29/18 07:52 Dose: 30 units Insulin Aspart (Novolog Vial Sliding Scale -) 1 vial SQ TIDAC [facility]; Protocol Last Admin: 12/29/18 10:49 Dose: Not Given Lactobacillus Acidophilus (Bacid -) 1 tab PO DAILY [facility] Last Admin: 12/29/18 09:19 Dose: 1 tab Magnesium Hydroxide (Milk Of Magnesia -) 30 ml PO DAILY PRN PRN Reason: CONSTIPATION Metoclopramide HCl (Reglan -) 10 mg PO TIDAC [facility] Last Admin: 12/29/18 10:52 Dose: 10 mg Nystatin (Mycostatin Cream -) 1 applic TP BID [facility] Last Admin: 12/29/18 11:45 Dose: Not Given Oxycodone HCl (Roxicodone -) 30 mg PO Q3H PRN PRN Reason: PAIN LEVEL 6-10 Last Admin: 12/29/18 10:51 Dose: 30 mg Polyethylene Glycol (Miralax (For Daily Use) -) 17 gm PO TID [facility] Last Admin: 12/29/18 08:07 Dose: 17 grams Senna (Senna -) 2 tab PO HS [facility] Silver Sulfadiazine (Silvadene -) 1 applic TP DAILY [facility] Last Admin: 12/29/18 09:29 Dose: 1 applic Sodium Chloride ([place] Nasal [place] -) 2 spray NS TID PRN PRN Reason: NASAL CONGESTION Gen: Awake and alert, NAD Heart: RRR Lung: decreased breath sounds at the bases Abd: soft, nontender Ext: + edema, R BKA Laboratory Results - last 24 hr 12/28/18 12/28/18 12/29/18 18:00 21:07 05:35 WBC 9.4 RBC 4.39 Hgb 11.8 Hct 35.6 MCV 81.0 MCH 26.9 MCHC 33.2 RDW 15.0 Plt Count 236 MPV 8.7 Absolute Neuts (auto) 6.5 Neutrophils % 69.1 Lymphocytes % 21.0 Monocytes % 7.3 Eosinophils % 2.1 Basophils % 0.5 Nucleated RBC % 0 Sodium Potassium Chloride Carbon Dioxide Anion Gap BUN Creatinine Est GFR (CKD-EPI)AfAm Est GFR (CKD-EPI)NonAf POC Glucometer 195 304 Random Glucose Calcium Phosphorus Magnesium Total Bilirubin AST ALT Alkaline Phosphatase Total Protein Albumin 12/29/18 12/29/18 12/29/18 05:35 06:29 10:48 WBC RBC Hgb Hct MCV MCH MCHC RDW Plt Count MPV Absolute Neuts (auto) Neutrophils % Lymphocytes % Monocytes % Eosinophils % Basophils % Nucleated RBC % Sodium 138 Potassium 3.6 Chloride 97 L Carbon Dioxide 34 H Anion Gap 6 L BUN 25.2 H Creatinine 1.1 Est GFR (CKD-EPI)AfAm 87.74 Est GFR (CKD-EPI)NonAf 75.70 POC Glucometer 93 94 Random Glucose 91 Calcium 8.5 Phosphorus 3.5 Magnesium 2.2 Total Bilirubin 0.6 AST 21 ALT 20 Alkaline Phosphatase 90 Total Protein 6.4 Albumin 2.8 L ASSESSMENT AND PLAN: Acute Hypoxic Respiratory Failure Acute on Chronic Diastolic Heart Failure Volume Overload Pleural Effusions from above HTN DM Hyperlipidemia - Wean HFOT - Lasix - monitor urine output, creatinine - DVT prophylaxis - Daily weights - PO as tolerated - Cardiac Telemetry monitoring Dr Rivera
--- NOTE | 2018-12-29 12:39 | PN ---
Progress Note (short form) - Note Progress Note: s: no chest pain, palps, dizziness. improving dyspnea Current Medications Generic Name Dose Route Start Last Admin Trade Name Freq PRN Reason Stop Dose Admin Acetaminophen 325 mg 12/24/18 10:28 Tylenol - PO Q6H PRN PAIN Alprazolam 2 mg 12/24/18 10:28 12/29/18 07:49 Xanax - PO 2 mg Q6H PRN Administration ANXIETY Amlodipine Besylate 5 mg 12/25/18 10:00 12/29/18 09:19 Norvasc - PO 5 mg DAILY [facility] Administration Aspirin 81 mg 12/25/18 10:00 12/29/18 09:19 Asa - PO 81 mg DAILY [facility] Administration Atorvastatin Calcium 20 mg 12/24/18 22:00 12/28/18 22:19 Lipitor - PO 20 mg HS [facility] Administration Calcium Carbonate/Cholecalciferol 1 tab 12/24/18 22:00 12/29/18 09:19 Os-Tra 500+D - PO 1 tab BID [facility] Administration Clonidine 0.2 mg 12/24/18 22:00 12/29/18 09:19 Catapres - PO 0.2 mg BID [facility] Administration Docusate Sodium 100 mg 12/24/18 22:00 12/29/18 09:19 Colace - PO 100 mg BID [facility] Administration Furosemide 100 mg 12/27/18 14:00 12/29/18 06:35 Lasix - PO 100 mg BID@0600,1400 [facility] Administration Heparin Sodium (Porcine) 5,000 unit 12/28/18 14:00 12/29/18 06:36 Heparin - SQ 5,000 unit TID [facility] Administration Insulin Aspart 30 units 12/24/18 22:02 12/29/18 07:52 Novolog Mix 70/30 Vial SQ 30 units BID@0700,2200 [facility] Administration Insulin Aspart 1 vial 12/27/18 21:30 12/29/18 10:49 Novolog Vial Sliding Scale - SQ Not Given TIDAC [facility] Protocol Lactobacillus Acidophilus 1 tab 12/25/18 10:00 12/29/18 09:19 Bacid - PO 1 tab DAILY [facility] Administration Magnesium Hydroxide 30 ml 12/24/18 10:28 Milk Of Magnesia - PO DAILY PRN CONSTIPATION Metoclopramide HCl 10 mg 12/24/18 11:00 12/29/18 10:52 Reglan - PO 10 mg TIDAC [facility] Administration Nystatin 1 applic 12/24/18 22:00 12/29/18 11:45 Mycostatin Cream - TP Not Given BID [facility] Oxycodone HCl 30 mg 12/24/18 10:28 12/29/18 10:51 Roxicodone - PO 30 mg Q3H PRN Administration PAIN LEVEL 6-10 Polyethylene Glycol 17 gm 12/29/18 07:15 12/29/18 08:07 Miralax (For Daily Use) - PO 17 grams TID [facility] Administration Senna 2 tab 12/29/18 22:00 Senna - PO HS [facility] Silver Sulfadiazine 1 applic 12/26/18 18:30 12/29/18 09:29 Silvadene - TP 1 applic DAILY [facility] Administration Sodium Chloride 2 spray 12/26/18 06:18 [place] Nasal [place] - NS TID PRN NASAL CONGESTION Vital Signs Period Temp Pulse Resp BP Sys/Cross Pulse Ox Last 24 Hr 97.7 F-98.5 F 53-70 12-25 105-132/45-81 98-98 Constitutional: Yes: No Distress, Calm, Obese Cardiovascular: Yes: Regular Rate and Rhythm (soft intensity sounds), S1, S2. No: JVD (++ tds exam), Gallop, Murmur Respiratory: Yes: Regular, CTA Bilaterally. No: Accessory Muscle Use, Rales, Wheezes Extremities: No: Cold Edema: No (s/p R AKA) Neurological: Yes: Alert, Oriented Psychiatric: No: Agitated Laboratory Last Values WBC 9.4 K/mm3 (4.0-10.0) 12/29/18 05:35 RBC 4.39 M/mm3 (4.00-5.60) 12/29/18 05:35 Hgb 11.8 GM/dL (11.7-16.9) 12/29/18 05:35 Hct 35.6 % (35.4-49) 12/29/18 05:35 MCV 81.0 fl (80-96) 12/29/18 05:35 MCH 26.9 pg (25.7-33.7) 12/29/18 05:35 MCHC 33.2 g/dl (32.0-35.9) 12/29/18 05:35 RDW 15.0 % (11.9-15.9) 12/29/18 05:35 Plt Count 236 K/MM3 (134-434) 12/29/18 05:35 MPV 8.7 fl (7.5-11.1) 12/29/18 05:35 Absolute Neuts (auto) 6.5 K/mm3 (1.5-8.0) 12/29/18 05:35 Neutrophils % 69.1 % (42.8-82.8) 12/29/18 05:35 Lymphocytes % 21.0 % (8-40) 12/29/18 05:35 Monocytes % 7.3 % (3.8-10.2) 12/29/18 05:35 Eosinophils % 2.1 % (0-4.5) 12/29/18 05:35 Basophils % 0.5 % (0-2.0) 12/29/18 05:35 Nucleated RBC % 0 % (0-0) 12/29/18 05:35 PT with INR 15.10 SEC (9.7-13.0) H 12/24/18 08:48 INR 1.28 (0.83-1.09) H 12/24/18 08:48 PTT (Actin FS) 32.6 SECONDS (25.2-36.5) 12/24/18 08:48 Anticoagulation Therapy No Result Required. 12/24/18 13:58 Puncture Site Left radial 12/24/18 13:58 ABG pH 7.45 (7.35-7.45) 12/24/18 13:58 ABG pCO2 at Pt Temp 37.5 mmHg (35-45) 12/24/18 13:58 ABG pO2 at Pt Temp 72.3 mmHg (80-100) L 12/24/18 13:58 ABG HCO3 25.8 mmol/L (22-27) 12/24/18 13:58 ABG O2 Sat (Measured) 93.7 % (95-98) L 12/24/18 13:58 ABG O2 Content 14.8 % vol 12/24/18 13:58 ABG Base Excess 2.3 meq/l (-2-2) H 12/24/18 13:58 Osei Test Positive 12/24/18 13:58 VBG pH 7.39 (7.31-7.41) 12/24/18 08:48 POC VBG pCO2 43.1 mmHg (38-52) 12/24/18 08:48 POC VBG pO2 < 49 mmHg (28-48) H 12/24/18 08:48 VBG HCO3 25.3 mmol/L (23-29) 12/24/18 08:48 VBG O2 Sat (Dorothy) 63.8 % (70-80) L 12/24/18 08:48 VBG Base Excess 0.6 meq/l (-2-2) 12/24/18 08:48 O2 Delivery Device Non rebreather 12/24/18 13:58 Oxygen Flow Rate 100 12/24/18 13:58 Vent Mode No Result Required. 12/24/18 13:58 Vent Rate No Result Required. 12/24/18 13:58 Mechanical Rate No Result Required. 12/24/18 13:58 Pressure Support Vent No Result Required. 12/24/18 13:58 Sodium 138 mmol/L (136-145) 12/29/18 05:35 Potassium 3.6 mmol/L (3.5-5.1) 12/29/18 05:35 Chloride 97 mmol/L (98-107) L 12/29/18 05:35 Carbon Dioxide 34 mmol/L (21-32) H 12/29/18 05:35 Anion Gap 6 MMOL/L (8-16) L 12/29/18 05:35 BUN 25.2 mg/dL (7-18) H 12/29/18 05:35 Creatinine 1.1 mg/dL (0.55-1.3) 12/29/18 05:35 Est GFR (CKD-EPI)AfAm 87.74 12/29/18 05:35 Est GFR (CKD-EPI)NonAf 75.70 12/29/18 05:35 POC Glucometer 94 UNITS (80-120) 12/29/18 10:48 Random Glucose 91 mg/dL (74-106) 12/29/18 05:35 Lactic Acid 1.5 mmol/L (0.4-2.0) 12/26/18 13:11 Calcium 8.5 mg/dL (8.5-10.1) 12/29/18 05:35 Phosphorus 3.5 mg/dL (2.5-4.9) 12/29/18 05:35 Magnesium 2.2 mg/dL (1.8-2.4) 12/29/18 05:35 Total Bilirubin 0.6 mg/dL (0.2-1) 12/29/18 05:35 AST 21 U/L (15-37) 12/29/18 05:35 ALT 20 U/L (13-61) 12/29/18 05:35 Alkaline Phosphatase 90 U/L (45-117) 12/29/18 05:35 Creatine Kinase 55 U/L (26-308) 12/24/18 08:48 CK-MB (CK-2) Cancelled 12/24/18 08:48 Troponin I < 0.02 ng/ml (0.00-0.05) 12/26/18 10:59 B-Natriuretic Peptide 857.7 pg/ml (5-125) H 12/24/18 10:02 Total Protein 6.4 g/dl (6.4-8.2) 12/29/18 05:35 Albumin 2.8 g/dl (3.4-5.0) L 12/29/18 05:35 Lipase 33 U/L (73-393) L 12/24/18 08:48 Urine Color Yellow 12/24/18 11:10 Urine Appearance Clear 12/24/18 11:10 Urine pH 5.5 (5.0-8.0) 12/24/18 11:10 Ur Specific [place] 1.013 (1.010-1.035) 12/24/18 11:10 Urine Protein Negative (NEGATIVE) 12/24/18 11:10 Urine Glucose (UA) Trace (NEGATIVE) 12/24/18 11:10 Urine Ketones Negative (NEGATIVE) 12/24/18 11:10 Urine Blood Negative (NEGATIVE) 12/24/18 11:10 Urine Nitrite Negative (NEGATIVE) 12/24/18 11:10 Urine Bilirubin Negative (NEGATIVE) 12/24/18 11:10 Urine Urobilinogen 0.2 mg/dL (0.2-1.0) 12/24/18 11:10 Ur Leukocyte Esterase Negative (NEGATIVE) 12/24/18 11:10 Blood Type A POSITIVE 12/24/18 08:48 Antibody Screen Negative 12/24/18 08:48 Assessment/Plan EKG: sinus, low voltage, nl intervals, no ischemic changes CXR: sherrie pleural effusions CTA chest sherrie pleural effusions with consolidations echo 12/2018 nl RV/LV function, mild aortic root dilation, sm pericardial effusion <1cm tele: sinus Acute HF exacerbation, sob, possible PNA, h/o remote endocarditis (2001): - abx per primary - vol status improved. Has been tolerating lasix po 100 mg BID for several days. cr stable. O2 requirements decreasing. - echo nl LV function - outpt FIDEL eval chest pain: - atyp CP, resolved now - trop neg x2 - ECG non-ischemic - ? chest wall muscle strain sec to work of breathing - consider repeat stress test if etiology of CP remains uncertain DM - manage per primary HTN - bp stable - cont home meds HLD - cont statin
--- NOTE | 2018-12-29 15:49 | PN ---
Physical Exam: SUBJECTIVE: Patient seen and examined at bedside. pt states he is feeling much better and that his breathing has since improved. pt states he is constipated as he has not had a BM in a few days OBJECTIVE: Vital Signs Period Temp Pulse Resp BP Sys/Cross Pulse Ox Last 24 Hr 97.7 F-98.5 F 53-70 13-25 105-132/45-81 98-98 GENERAL: The patient is awake, alert, and fully oriented, in no acute distress. LUNGS: Breath sounds equal, clear to auscultation bilaterally, no wheezes, no crackles, no accessory muscle use. HEART: Regular rate and rhythm, S1, S2 without murmur, rub or gallop. ABDOMEN: Soft, nontender, nondistended, normoactive bowel sounds, no guarding EXTREMITIES: 2+ pulses, warm, well-perfused, no edema. Laboratory Results - last 24 hr 12/28/18 12/28/18 12/29/18 18:00 21:07 05:35 WBC 9.4 RBC 4.39 Hgb 11.8 Hct 35.6 MCV 81.0 MCH 26.9 MCHC 33.2 RDW 15.0 Plt Count 236 MPV 8.7 Absolute Neuts (auto) 6.5 Neutrophils % 69.1 Lymphocytes % 21.0 Monocytes % 7.3 Eosinophils % 2.1 Basophils % 0.5 Nucleated RBC % 0 Sodium Potassium Chloride Carbon Dioxide Anion Gap BUN Creatinine Est GFR (CKD-EPI)AfAm Est GFR (CKD-EPI)NonAf POC Glucometer 195 304 Random Glucose Calcium Phosphorus Magnesium Total Bilirubin AST ALT Alkaline Phosphatase Total Protein Albumin Current Medications Acetaminophen (Tylenol -) 325 mg PO Q6H PRN PRN Reason: PAIN Alprazolam (Xanax -) 2 mg PO Q6H PRN PRN Reason: ANXIETY Last Admin: 12/29/18 14:14 Dose: 2 mg Amlodipine Besylate (Norvasc -) 5 mg PO DAILY [facility] Last Admin: 12/29/18 09:19 Dose: 5 mg Aspirin (Asa -) 81 mg PO DAILY [facility] Last Admin: 12/29/18 09:19 Dose: 81 mg Atorvastatin Calcium (Lipitor -) 20 mg PO HS [facility] Last Admin: 12/28/18 22:19 Dose: 20 mg Calcium Carbonate/Cholecalciferol (Os-Tra 500+D -) 1 tab PO BID [facility] Last Admin: 12/29/18 09:19 Dose: 1 tab Clonidine (Catapres -) 0.2 mg PO BID [facility] Last Admin: 12/29/18 09:19 Dose: 0.2 mg Docusate Sodium (Colace -) 100 mg PO BID [facility] Last Admin: 12/29/18 09:19 Dose: 100 mg Furosemide (Lasix -) 100 mg PO BID@0600,1400 [facility] Last Admin: 12/29/18 13:10 Dose: 100 mg Heparin Sodium (Porcine) (Heparin -) 5,000 unit SQ TID [facility] Last Admin: 12/29/18 13:09 Dose: 5,000 unit Insulin Aspart (Novolog Mix 70/30 Vial) 30 units SQ BID@0700,2200 [facility] Last Admin: 12/29/18 07:52 Dose: 30 units Insulin Aspart (Novolog Vial Sliding Scale -) 1 vial SQ TIDAC [facility]; Protocol Last Admin: 12/29/18 10:49 Dose: Not Given Lactobacillus Acidophilus (Bacid -) 1 tab PO DAILY [facility] Last Admin: 12/29/18 09:19 Dose: 1 tab Magnesium Hydroxide (Milk Of Magnesia -) 30 ml PO DAILY PRN PRN Reason: CONSTIPATION Metoclopramide HCl (Reglan -) 10 mg PO TIDAC [facility] Last Admin: 12/29/18 10:52 Dose: 10 mg Nystatin (Mycostatin Cream -) 1 applic TP BID [facility] Last Admin: 12/29/18 11:45 Dose: Not Given Oxycodone HCl (Roxicodone -) 30 mg PO Q3H PRN PRN Reason: PAIN LEVEL 6-10 Last Admin: 12/29/18 10:51 Dose: 30 mg Polyethylene Glycol (Miralax (For Daily Use) -) 17 gm PO TID [facility] Last Admin: 12/29/18 13:12 Dose: 17 grams Senna (Senna -) 2 tab PO HS [facility] Silver Sulfadiazine (Silvadene -) 1 applic TP DAILY [facility] Last Admin: 12/29/18 09:29 Dose: 1 applic Sodium Chloride ([place] Nasal [place] -) 2 spray NS TID PRN PRN Reason: NASAL CONGESTION ASSESSMENT/PLAN: 53 yo M PMH of IDDM, HTN, HLD, ACS, rib osteomylitis, prior MRSA bacteremia and endocarditis, Hep C, non healing wounds presented to hospital with acute SOB and chest pain. pt is requiring HFNC. Neuro: -pt is AAOx3 -c/w oxycodone for chronic pain-confirmed dose w/ home pharmacy Cardio: Acute HF exacerbation, sob, possible PNA, h/o remote endocarditis (2001) -c/w tele monitoring -ECHO shows EF 60-65%. mild -increase to lasix 100 po BID as per cardio recs -cardio recs appreciated -daily weights. -CXR reviewed, b/l pleural effusion. -c/w home bp mgmt -trops neg - ECG non-ischemic - ? chest wall muscle strain sec to work of breathing - consider repeat stress test once better diuresed - U/S of LE shows no occlusion, stenosis, or DVTs Pulm: Acute respiratory failure requiring HFNC -FIDEL screening -saturating well on NC, wean as tolerated Endo: IDDM -c/w insulin DVT ppx: heparin 5000 units TID Dispo: continue ICU monitoring Visit type - Emergency Visit Emergency Visit: No - New Patient This patient is new to me today: No - Critical Care Critical Care patient: Yes Total Critical Care Time (in minutes): 36 Critical Care Statement: The care of this patient involved high complexity decision making to prevent further life threatening deterioration of the patient 's condition and/or to evaluate & treat vital organ system(s) failure or risk of failure. ATTENDING PHYSICIAN STATEMENT I saw and evaluated the patient. I reviewed the resident's note and discussed the case with the resident. I agree with the resident's findings and plan as documented. SUBJECTIVE: OBJECTIVE: ASSESSMENT AND PLAN:
[2018-12-29] MEDS ORDERED: SENNOSIDES 8.6MG TABLET (FP) PO SCH (22:00)
[2018-12-29] MEDS: ATORVASTATIN CA 20 MG TABLET (FP) PO SCH (22:13)
[2018-12-30] MEDS ORDERED: PT OWN MED DRAWER 7, Y5N ONE (00:27)
[2018-12-30] MEDS: oxyCODONE HCL 5 MG TABLET PO PRN ×3 (00:28→21:11)
[2018-12-30] MEDS: POLYETHYLENE GLYCOL 3350 119 GM BTL PO SCH ×4 (00:28→21:13)
[2018-12-30] MEDS ORDERED: INSULIN (NOVOLOG) ASPART 100 UNITS/ML 10ML VIAL ONE (05:52)
[2018-12-30] MEDS: HEPARIN NA (PORCINE) 5,000 UNITS/ML 1ML VIAL SQ SCH ×3 (06:06→21:13)
[2018-12-30] MEDS: FUROSEMIDE 40 MG TABLET (FP) PO SCH (06:06)
[2018-12-30] MEDS: INSULIN SLIDING SCALE (NOVOLOG) 1 VIAL SQ SCH ×3 (06:07→17:06)
[2018-12-30 07:35] LABS: HEMATOCRIT 38.5 % (35.4-49); HEMOGLOBIN 12.9 GM/dL (11.7-16.9); MCH 27.2 pg (25.7-33.7); MCHC 33.6 g/dl (32.0-35.9); MEAN PLT VOLUME 8.7 fl (7.5-11.1); PLATELET COUNT 240 K/MM3 (134-434); RBC 4.75 M/mm3 (4.00-5.60); RDW 15.3 % (11.9-15.9); WHITE BLOOD COUNT 8.9 K/mm3 (4.0-10.0)
[2018-12-30 07:36] LABS: BLOOD UREA NITROGEN 27.8 mg/dL (7-18); CALCIUM 8.5 mg/dL (8.5-10.1); CREATININE 1.4 mg/dL (0.55-1.3); MAGNESIUM 2.3 mg/dL (1.8-2.4); PHOSPHOROUS 3.4 mg/dL (2.5-4.9); POTASSIUM 3.7 mmol/L (3.5-5.1)
[2018-12-30] MEDS: INSULIN (NOVOLOG MIX 70/30) 100 UNITS/ML MDV SQ SCH ×2 (08:26→21:13)
[2018-12-30] MEDS: METOCLOPRAMIDE HCL 10 MG TABLET (FP) PO SCH ×3 (08:31→17:06)
[2018-12-30] MEDS: ALPRAZolam 2 MG TABLET PO PRN (08:45)
--- NOTE | 2018-12-30 08:58 | PN ---
Progress Note, Physician Chief Complaint: Sitting in chair, no CP or SOB TELE: NSR History of Present Illness: weight down - Current Medication List Current Medications: Active Medications Acetaminophen (Tylenol -) 325 mg PO Q6H PRN PRN Reason: PAIN Alprazolam (Xanax -) 2 mg PO Q6H PRN PRN Reason: ANXIETY Last Admin: 12/30/18 08:45 Dose: 2 mg Amlodipine Besylate (Norvasc -) 5 mg PO DAILY [facility]S [facility] Last Admin: 12/29/18 09:19 Dose: 5 mg Aspirin (Asa -) 81 mg PO DAILY [facility] 234 [facility]S [facility] Last Admin: 12/29/18 09:19 Dose: 81 mg Atorvastatin Calcium (Lipitor -) 20 mg PO HS [facility] 234 B[facility]S [facility] Last Admin: 12/29/18 22:13 Dose: 20 mg Calcium Carbonate/Cholecalciferol (Os-Tra 500+D -) 1 tab PO BID [facility]S [facility] Last Admin: 12/29/18 22:13 Dose: 1 tab Clonidine (Catapres -) 0.2 mg PO BID [facility] 234 BEDS [facility] Last Admin: 12/29/18 22:12 Dose: 0.2 mg Docusate Sodium (Colace -) 100 mg PO BID [facility] 234 B[facility]S [facility] Last Admin: 12/29/18 22:12 Dose: 100 mg Furosemide (Lasix -) 100 mg PO BID@0600,1400 [facility] 234 B[facility]S [facility] Last Admin: 12/30/18 06:06 Dose: 100 mg Heparin Sodium (Porcine) (Heparin -) 5,000 unit SQ TID [facility] 234 B[facility]S [facility] Last Admin: 12/30/18 06:06 Dose: 5,000 unit Insulin Aspart (Novolog Mix 70/30 Vial) 30 units SQ BID@0700,2200 [facility]S [facility]CLUDE 234 BEDS AT [facility] Last Admin: 12/30/18 08:26 Dose: 30 units Insulin Aspart (Novolog Vial Sliding Scale -) 1 vial SQ TIDAC [facility] 234 BEDS [facility]; Protocol Last Admin: 12/30/18 06:07 Dose: Not Given Lactobacillus Acidophilus (Bacid -) 1 tab PO DAILY [facility] 234 B[facility]S [facility] Last Admin: 12/29/18 09:19 Dose: 1 tab Magnesium Hydroxide (Milk Of Magnesia -) 30 ml PO DAILY PRN PRN Reason: CONSTIPATION Metoclopramide HCl (Reglan -) 10 mg PO TIDAC [facility] 234 BEDS [facility] Last Admin: 12/30/18 08:31 Dose: Not Given Nystatin (Mycostatin Cream -) 1 applic TP BID [facility] 234 B[facility]S [facility] Last Admin: 12/29/18 22:13 Dose: 1 applic Oxycodone HCl (Roxicodone -) 30 mg PO Q3H PRN PRN Reason: PAIN LEVEL 6-10 Last Admin: 12/30/18 00:28 Dose: 30 mg Polyethylene Glycol (Miralax (For Daily Use) -) 17 gm PO TID [facility]CLUDE 234 BEDS [facility] Last Admin: 12/30/18 06:07 Dose: Not Given Senna (Senna -) 2 tab PO HS [facility]CLUDE 234 BEDS [facility] Last Admin: 12/29/18 22:13 Dose: 2 tab Silver Sulfadiazine (Silvadene -) 1 applic TP DAILY [facility]CLUDE 234 BEDS [facility] Last Admin: 12/29/18 09:29 Dose: 1 applic Sodium Chloride ([place] Nasal [place] -) 2 spray NS TID PRN PRN Reason: NASAL CONGESTION - Objective Vital Signs: Vital Signs Temperature 98.7 F 12/30/18 08:00 Pulse Rate 65 12/30/18 08:20 Respiratory Rate 18 12/30/18 08:00 Blood Pressure 141/73 12/30/18 08:00 O2 Sat by Pulse Oximetry (%) 99 12/30/18 08:20 Constitutional: Yes: No Distress, Calm Cardiovascular: Yes: Regular Rate and Rhythm Respiratory: Yes: CTA Bilaterally Gastrointestinal: Yes: Soft Edema: No (venous stasis) Neurological: Yes: Alert Labs: CBC, BMP 12/30/18 06:19 12/30/18 06:19 INR, PTT INR 1.28 (0.83-1.09) H 12/24/18 08:48 - ....Imaging EKG: Image Reviewed Assessment/Plan Assessment/Plan EKG: sinus, low voltage, nl intervals, no ischemic changes CXR: sherrie pleural effusions CTA chest sherrie pleural effusions with consolidations echo 12/2018 nl RV/LV function, mild aortic root dilation, sm pericardial effusion <1cm tele: sinus Acute HF exacerbation, sob, possible PNA, h/o remote endocarditis (2001): - abx per primary - vol status improved. Has been tolerating lasix po 100 mg BID for several days. cr stable. O2 requirements decreasing, weight down - echo nl LV function - outpt FIDEL eval chest pain: - atyp CP, resolved now - trop neg x2 - ECG non-ischemic - ? chest wall muscle strain sec to work of breathing - Plan for stress MPI prior to discharge, likely Wednesday AM DM - manage per primary HTN - bp stable - cont home meds HLD - cont statin
[2018-12-30] MEDS: LACTOBACILLUS ACIDOPHILUS 1 TABLET PO SCH (09:41)
[2018-12-30] MEDS: DOCUSATE SODIUM 100 MG CAPSULE (FP) PO SCH ×2 (09:42→21:12)
[2018-12-30] MEDS: amLODIPine BESYLATE 5 MG TABLET (FP) PO SCH (09:42)
[2018-12-30] MEDS: CALCIUM 500MG/VIT-D 200 UNITS COMBO TABLET (FP) PO SCH ×2 (09:42→21:12)
[2018-12-30] MEDS: ASPIRIN 81 MG CHEWABLE TABLETS PO SCH (09:42)
[2018-12-30] MEDS: cloNIDine HCL 0.1 MG TABLET PO SCH ×2 (09:42→21:12)
[2018-12-30] MEDS: SILVER SULFADIAZINE 1% TOP CREAM 400 GM JAR TP SCH (09:44)
[2018-12-30] MEDS: NYSTATIN 100,000 UNIT/GM TOPICAL CREAM 15 GM TUBE TP SCH ×2 (09:44→21:18)
--- NOTE | 2018-12-30 10:58 | PN ---
Teaching Attending Note Name of Resident: Neetu Quiros ATTENDING PHYSICIAN STATEMENT I saw and evaluated the patient. I reviewed the resident's note and discussed the case with the resident. I agree with the resident's findings and plan as documented. SUBJECTIVE: Patient seen and examined in the ICU. Remains on NC O2. Breathing overall better. No CP. Noted increase in creatinine. OBJECTIVE: Intake & Output 12/27/18 12/28/18 12/29/18 12/30/18 23:59 23:59 23:59 23:59 Intake Total 700 660 740 300 Output Total 4400 4300 3300 600 Balance -3700 -3640 -2560 -300 Weight 267 lb 8 oz 261 lb 3.2 oz Last Vital Signs Temp Pulse Resp BP Pulse Ox 98.7 F 65 18 141/73 99 12/30/18 08:00 12/30/18 08:20 12/30/18 09:00 12/30/18 08:00 12/30/18 09:00 Active Medications Acetaminophen (Tylenol -) 325 mg PO Q6H PRN PRN Reason: PAIN Alprazolam (Xanax -) 2 mg PO Q6H PRN PRN Reason: ANXIETY Last Admin: 12/30/18 08:45 Dose: 2 mg Amlodipine Besylate (Norvasc -) 5 mg PO DAILY [facility] Last Admin: 12/30/18 09:42 Dose: 5 mg Aspirin (Asa -) 81 mg PO DAILY [facility] Last Admin: 12/30/18 09:42 Dose: 81 mg Atorvastatin Calcium (Lipitor -) 20 mg PO HS [facility] Last Admin: 12/29/18 22:13 Dose: 20 mg Calcium Carbonate/Cholecalciferol (Os-Tra 500+D -) 1 tab PO BID [facility] Last Admin: 12/30/18 09:42 Dose: 1 tab Clonidine (Catapres -) 0.2 mg PO BID [facility] Last Admin: 12/30/18 09:42 Dose: 0.2 mg Docusate Sodium (Colace -) 100 mg PO BID [facility] Last Admin: 12/30/18 09:42 Dose: 100 mg Furosemide (Lasix -) 100 mg PO BID@0600,1400 [facility] Last Admin: 12/30/18 06:06 Dose: 100 mg Heparin Sodium (Porcine) (Heparin -) 5,000 unit SQ TID [facility] Last Admin: 12/30/18 06:06 Dose: 5,000 unit Insulin Aspart (Novolog Mix 70/30 Vial) 30 units SQ BID@0700,2200 [facility] Last Admin: 12/30/18 08:26 Dose: 30 units Insulin Aspart (Novolog Vial Sliding Scale -) 1 vial SQ TIDAC [facility]; Protocol Last Admin: 12/30/18 06:07 Dose: Not Given Lactobacillus Acidophilus (Bacid -) 1 tab PO DAILY [facility] Last Admin: 12/30/18 09:41 Dose: 1 tab Magnesium Hydroxide (Milk Of Magnesia -) 30 ml PO DAILY PRN PRN Reason: CONSTIPATION Metoclopramide HCl (Reglan -) 10 mg PO TIDAC [facility] Last Admin: 12/30/18 08:31 Dose: Not Given Nystatin (Mycostatin Cream -) 1 applic TP BID [facility] Last Admin: 12/30/18 09:44 Dose: Not Given Oxycodone HCl (Roxicodone -) 30 mg PO Q3H PRN PRN Reason: PAIN LEVEL 6-10 Last Admin: 12/30/18 00:28 Dose: 30 mg Polyethylene Glycol (Miralax (For Daily Use) -) 17 gm PO TID [facility] Last Admin: 12/30/18 06:07 Dose: Not Given Senna (Senna -) 2 tab PO HS [facility] Last Admin: 12/29/18 22:13 Dose: 2 tab Silver Sulfadiazine (Silvadene -) 1 applic TP DAILY [facility] Last Admin: 12/30/18 09:44 Dose: 1 applic Sodium Chloride ([place] Nasal [place] -) 2 spray NS TID PRN PRN Reason: NASAL CONGESTION Gen: Awake and alert, NAD Heart: RRR Lung: decreased breath sounds at the bases Abd: soft, nontender Ext: + edema, R BKA Laboratory Results - last 24 hr 12/29/18 12/29/18 12/30/18 15:58 22:18 06:03 WBC RBC Hgb Hct MCV MCH MCHC RDW Plt Count MPV Sodium Potassium Chloride Carbon Dioxide Anion Gap BUN Creatinine Est GFR (CKD-EPI)AfAm Est GFR (CKD-EPI)NonAf POC Glucometer 98 204 89 Random Glucose Calcium Phosphorus Magnesium 12/30/18 12/30/18 06:19 06:19 WBC 8.9 RBC 4.75 Hgb 12.9 Hct 38.5 MCV 81.0 MCH 27.2 MCHC 33.6 RDW 15.3 Plt Count 240 MPV 8.7 Sodium 138 Potassium 3.7 Chloride 96 L Carbon Dioxide 34 H Anion Gap 8 BUN 27.8 H Creatinine 1.4 H Est GFR (CKD-EPI)AfAm 65.55 Est GFR (CKD-EPI)NonAf 56.56 POC Glucometer Random Glucose 90 Calcium 8.5 Phosphorus 3.4 Magnesium 2.3 ASSESSMENT AND PLAN: Acute Hypoxic Respiratory Failure Acute on Chronic Diastolic Heart Failure Volume Overload Pleural Effusions from above HTN DM Hyperlipidemia - NC O2 as tolerated - Decrease Lasix - monitor urine output, creatinine - DVT prophylaxis - Daily weights - PO as tolerated - Cardiac Telemetry & Oximetry monitoring Dr Rivera
--- NOTE | 2018-12-30 11:05 | PN ---
Progress Note (short form) - Note Progress Note: 53 y/o male found sitting in chair. States that he is feeling a little better but not his normal. States that he is scared. Vital Signs Period Temp Pulse Resp BP Sys/Cross Pulse Ox Last 24 Hr 98.1 F-98.7 F 58-74 13-20 94-141/49-77 96-99 CBC, BMP 12/30/18 06:19 12/30/18 06:19 HEENT- NL Neck- Supple Lungs- CTAB Heart- S1/S2 Abd- Obes, soft, nt Ext- RT BKA Trace edema lt Active Medications Acetaminophen (Tylenol -) 325 mg PO Q6H PRN PRN Reason: PAIN Alprazolam (Xanax -) 2 mg PO Q6H PRN PRN Reason: ANXIETY Last Admin: 12/30/18 08:45 Dose: 2 mg Amlodipine Besylate (Norvasc -) 5 mg PO DAILY [facility] Last Admin: 12/30/18 09:42 Dose: 5 mg Aspirin (Asa -) 81 mg PO DAILY [facility] Last Admin: 12/30/18 09:42 Dose: 81 mg Atorvastatin Calcium (Lipitor -) 20 mg PO HS [facility] Last Admin: 12/29/18 22:13 Dose: 20 mg Calcium Carbonate/Cholecalciferol (Os-Tra 500+D -) 1 tab PO BID [facility] Last Admin: 12/30/18 09:42 Dose: 1 tab Clonidine (Catapres -) 0.2 mg PO BID [facility] Last Admin: 12/30/18 09:42 Dose: 0.2 mg Docusate Sodium (Colace -) 100 mg PO BID [facility] Last Admin: 12/30/18 09:42 Dose: 100 mg Furosemide (Lasix -) 100 mg PO BID@0600,1400 [facility] Last Admin: 12/30/18 06:06 Dose: 100 mg Heparin Sodium (Porcine) (Heparin -) 5,000 unit SQ TID [facility] Last Admin: 12/30/18 06:06 Dose: 5,000 unit Insulin Aspart (Novolog Mix 70/30 Vial) 30 units SQ BID@0700,2200 [facility] Last Admin: 12/30/18 08:26 Dose: 30 units Insulin Aspart (Novolog Vial Sliding Scale -) 1 vial SQ TIDAC [facility]; Protocol Last Admin: 12/30/18 11:02 Dose: Not Given Lactobacillus Acidophilus (Bacid -) 1 tab PO DAILY [facility] Last Admin: 12/30/18 09:41 Dose: 1 tab Magnesium Hydroxide (Milk Of Magnesia -) 30 ml PO DAILY PRN PRN Reason: CONSTIPATION Metoclopramide HCl (Reglan -) 10 mg PO TIDAC [facility] Last Admin: 12/30/18 11:03 Dose: Not Given Nystatin (Mycostatin Cream -) 1 applic TP BID [facility] Last Admin: 12/30/18 09:44 Dose: Not Given Oxycodone HCl (Roxicodone -) 30 mg PO Q3H PRN PRN Reason: PAIN LEVEL 6-10 Last Admin: 12/30/18 00:28 Dose: 30 mg Polyethylene Glycol (Miralax (For Daily Use) -) 17 gm PO TID [facility] Last Admin: 12/30/18 06:07 Dose: Not Given Senna (Senna -) 2 tab PO HS [facility] Last Admin: 12/29/18 22:13 Dose: 2 tab Silver Sulfadiazine (Silvadene -) 1 applic TP DAILY [facility] Last Admin: 12/30/18 09:44 Dose: 1 applic Sodium Chloride ([place] Nasal [place] -) 2 spray NS TID PRN PRN Reason: NASAL CONGESTION ASSMT/PLAN # new onset HF hypoxemic resp failure due to large bilat effusions Cardiomegaly on CXR/ CT - ECHO done - EF 60%, nl LV/RV function continue IV lasix monitor renal function and lytes. appreciate Cardio and pulmonary consults # DM- BG 90 today ADA diet continue Insulin and coverage # Hypoxemic respiratory failure HFNC O2 sat > 99% # HTN- BP 141/73 continue clonidine and CCB # chronic pain syndrome continue oxy and Tylenol oxy renewed # non healing wound to [place] scheduled for wound clinic as out patient silvadene to open wound / change daily Problem List - Problems (1) Bilateral pleural effusion Code(s): J90 - PLEURAL EFFUSION, NOT ELSEWHERE CLASSIFIED (2) Hypoxemia requiring supplemental oxygen Code(s): R09.02 - HYPOXEMIA; Z99.81 - DEPENDENCE ON SUPPLEMENTAL OXYGEN (3) Amputation of right lower extremity below knee Code(s): Z89.511 - ACQUIRED ABSENCE OF RIGHT LEG BELOW KNEE (4) Anxiety Code(s): F41.9 - ANXIETY DISORDER, UNSPECIFIED (5) Chronic pain Code(s): G89.29 - OTHER CHRONIC PAIN (6) Diabetes mellitus Code(s): E11.9 - TYPE 2 DIABETES MELLITUS WITHOUT COMPLICATIONS (7) HLD (hyperlipidemia) Code(s): E78.5 - HYPERLIPIDEMIA, UNSPECIFIED (8) HTN (hypertension) Code(s): I10 - ESSENTIAL (PRIMARY) HYPERTENSION (9) Hepatitis C Code(s): B19.20 - UNSPECIFIED VIRAL HEPATITIS C WITHOUT HEPATIC COMA (10) Opioid dependence on agonist therapy Code(s): F11.20 - OPIOID DEPENDENCE, UNCOMPLICATED (11) PTSD (post-traumatic stress disorder) Code(s): F43.10 - POST-TRAUMATIC STRESS DISORDER, UNSPECIFIED (12) Peripheral neuropathy Code(s): G62.9 - POLYNEUROPATHY, UNSPECIFIED Qualifiers:
[2018-12-30] MEDS ORDERED: ALPRAZolam 1 MG TABLET PO PRN (12:07)
[2018-12-30 15:10] VITALS: BMI 40.8
--- NOTE | 2018-12-30 16:54 | PN ---
Physical Exam: SUBJECTIVE: Patient seen and examined at bedside, pt states his breathing is improving and that he feels well. pt is still constipated and had not had a BM since the Dec. pt is willing to participate in PT OBJECTIVE: Vital Signs Period Temp Pulse Resp BP Sys/Cross Pulse Ox Last 24 Hr 98.4 F-98.7 F 58-74 14-20 94-141/49-73 96-99 GENERAL: The patient is awake, alert, and fully oriented, in no acute distress. LUNGS: Breath sounds equal, clear to auscultation bilaterally, no accessory muscle use. HEART: Regular rate and rhythm, S1, S2 without murmur, rub or gallop. ABDOMEN: Soft, nontender, nondistended, hypoactive bowel sounds, no guarding EXTREMITIES: 2+ pulses, warm, well-perfused, no edema. SKIN: Warm, dry, normal turgor, no rashes or lesions noted CBC, BMP 12/30/18 06:19 12/30/18 06:19 Current Medications Acetaminophen (Tylenol -) 325 mg PO Q6H PRN PRN Reason: PAIN Alprazolam (Xanax) 2 mg PO Q6H PRN PRN Reason: ANXIETY Amlodipine Besylate (Norvasc -) 5 mg PO DAILY [facility] Last Admin: 12/30/18 09:42 Dose: 5 mg Aspirin (Asa -) 81 mg PO DAILY [facility] Last Admin: 12/30/18 09:42 Dose: 81 mg Atorvastatin Calcium (Lipitor -) 20 mg PO HS [facility] Last Admin: 12/29/18 22:13 Dose: 20 mg Calcium Carbonate/Cholecalciferol (Os-Tra 500+D -) 1 tab PO BID [facility] Last Admin: 12/30/18 09:42 Dose: 1 tab Clonidine (Catapres -) 0.2 mg PO BID [facility] Last Admin: 12/30/18 09:42 Dose: 0.2 mg Docusate Sodium (Colace -) 100 mg PO BID [facility] Last Admin: 12/30/18 09:42 Dose: 100 mg Furosemide (Lasix -) 40 mg PO BID@0600,1400 [facility] Heparin Sodium (Porcine) (Heparin -) 5,000 unit SQ TID [facility] Last Admin: 12/30/18 14:13 Dose: 5,000 unit Insulin Aspart (Novolog Mix 70/30 Vial) 30 units SQ BID@0700,2200 [facility] Last Admin: 12/30/18 08:26 Dose: 30 units Insulin Aspart (Novolog Vial Sliding Scale -) 1 vial SQ TIDAC [facility]; Protocol Last Admin: 12/30/18 11:02 Dose: Not Given Lactobacillus Acidophilus (Bacid -) 1 tab PO DAILY [facility] Last Admin: 12/30/18 09:41 Dose: 1 tab Magnesium Hydroxide (Milk Of Magnesia -) 30 ml PO DAILY PRN PRN Reason: CONSTIPATION Metoclopramide HCl (Reglan -) 10 mg PO TIDAC [facility] Last Admin: 12/30/18 11:03 Dose: Not Given Nystatin (Mycostatin Cream -) 1 applic TP BID [facility] Last Admin: 12/30/18 09:44 Dose: Not Given Oxycodone HCl (Roxicodone -) 30 mg PO Q3H PRN PRN Reason: PAIN LEVEL 6-10 Last Admin: 12/30/18 14:12 Dose: 30 mg Polyethylene Glycol (Miralax (For Daily Use) -) 17 gm PO TID [facility] Last Admin: 12/30/18 14:13 Dose: 17 grams Senna (Senna -) 2 tab PO HS [facility] Last Admin: 12/29/18 22:13 Dose: 2 tab Silver Sulfadiazine (Silvadene -) 1 applic TP DAILY [facility] Last Admin: 12/30/18 09:44 Dose: 1 applic Sodium Chloride ([place] Nasal [place] -) 2 spray NS TID PRN PRN Reason: NASAL CONGESTION ASSESSMENT/PLAN: 53 yo M PMH of IDDM, HTN, HLD, ACS, rib osteomylitis, prior MRSA bacteremia and endocarditis, Hep C, non healing wounds presented to hospital with acute SOB and chest pain. pt is required HFNC. Neuro: -pt is AAOx3 -c/w oxycodone for chronic pain-confirmed dose w/ home pharmacy Cardio: Acute HF exacerbation, sob, possible PNA, h/o remote endocarditis (2001) -c/w tele monitoring -ECHO shows EF 60-65%. mild -s/p lasix 100 po BID. now continue pt on 40 lasix po bid -cardio recs appreciated -daily weights. -CXR reviewed, b/l pleural effusion. -c/w home bp mgmt -trops neg - ECG non-ischemic - ? chest wall muscle strain sec to work of breathing - consider repeat stress test once better diuresed - U/S of LE shows no occlusion, stenosis, or DVTs Pulm: Acute respiratory failure requiring HFNC -FIDEL screening -saturating well on NC, wean as tolerated Endo: IDDM -c/w insulin and ISS -continue BGM DVT ppx: heparin 5000 units TID Dispo: pt can be transferred to tele Visit type - Emergency Visit Emergency Visit: No - New Patient This patient is new to me today: No - Critical Care Critical Care patient: Yes Total Critical Care Time (in minutes): 37 Critical Care Statement: The care of this patient involved high complexity decision making to prevent further life threatening deterioration of the patient 's condition and/or to evaluate & treat vital organ system(s) failure or risk of failure. ATTENDING PHYSICIAN STATEMENT I saw and evaluated the patient. I reviewed the resident's note and discussed the case with the resident. I agree with the resident's findings and plan as documented. SUBJECTIVE: OBJECTIVE: ASSESSMENT AND PLAN:
[2018-12-30] MEDS ORDERED: MAGNESIUM HYDROX 2400MG/30ML ORAL SUSPENSION 30 ML CUP PO PRN (19:41)
[2018-12-30] MEDS ORDERED: ACETAMINOPHEN 325 MG TABLET (FP) PO PRN ×2 (19:41→19:59)
[2018-12-30] MEDS ORDERED: SODIUM CHLORIDE NASAL SPRAY 44 ML BOTTLE NS PRN (19:41)
[2018-12-30] MEDS: SENNOSIDES 8.6MG TABLET (FP) PO SCH (21:12)
[2018-12-30] MEDS: ATORVASTATIN CA 20 MG TABLET (FP) PO SCH (21:12)
[2018-12-31] MEDS: ALPRAZolam 1 MG TABLET PO PRN ×4 (00:01→21:59)
[2018-12-31] MEDS ORDERED: FUROSEMIDE 40 MG TABLET (FP) PO SCH (05:00)
[2018-12-31] MEDS: HEPARIN NA (PORCINE) 5,000 UNITS/ML 1ML VIAL SQ SCH ×3 (05:43→22:01)
[2018-12-31] MEDS: FUROSEMIDE 40 MG TABLET (FP) PO SCH ×3 (05:43→13:33)
[2018-12-31] MEDS: POLYETHYLENE GLYCOL 3350 119 GM BTL PO SCH ×3 (05:44→23:00)
[2018-12-31] MEDS: METOCLOPRAMIDE HCL 10 MG TABLET (FP) PO SCH ×3 (06:40→16:44)
[2018-12-31] MEDS: INSULIN (NOVOLOG MIX 70/30) 100 UNITS/ML MDV SQ SCH ×2 (06:40→22:02)
[2018-12-31] MEDS: INSULIN SLIDING SCALE (NOVOLOG) 1 VIAL SQ SCH ×3 (06:41→16:45)
[2018-12-31 07:25] LABS: BLOOD UREA NITROGEN 30.7 mg/dL (7-18); CALCIUM 8.4 mg/dL (8.5-10.1); CREATININE 1.3 mg/dL (0.55-1.3); POTASSIUM 3.6 mmol/L (3.5-5.1)
[2018-12-31] MEDS: amLODIPine BESYLATE 5 MG TABLET (FP) PO SCH (09:45)
[2018-12-31] MEDS: DOCUSATE SODIUM 100 MG CAPSULE (FP) PO SCH ×2 (09:45→23:00)
[2018-12-31] MEDS: CALCIUM 500MG/VIT-D 200 UNITS COMBO TABLET (FP) PO SCH ×2 (09:46→23:00)
[2018-12-31] MEDS: cloNIDine HCL 0.1 MG TABLET PO SCH ×2 (09:46→22:01)
[2018-12-31] MEDS: LACTOBACILLUS ACIDOPHILUS 1 TABLET PO SCH (09:46)
[2018-12-31] MEDS: ASPIRIN 81 MG CHEWABLE TABLETS PO SCH (09:46)
[2018-12-31] MEDS: NYSTATIN 100,000 UNIT/GM TOPICAL CREAM 15 GM TUBE TP SCH ×2 (09:47→23:00)
[2018-12-31] MEDS: SILVER SULFADIAZINE 1% TOP CREAM 400 GM JAR TP SCH (09:48)
--- NOTE | 2018-12-31 10:59 | PN ---
Progress Note (short form) - Note Progress Note: s: no chest pain, palps, dizziness. improving dyspnea Current Medications Generic Name Dose Route Start Last Admin Trade Name Freq PRN Reason Stop Dose Admin Acetaminophen 325 mg 12/30/18 19:59 Tylenol - PO Q6H PRN PAIN LEVEL 6-10 Alprazolam 2 mg 12/30/18 19:41 12/31/18 09:45 Xanax PO 2 mg Q6H PRN Administration ANXIETY Amlodipine Besylate 5 mg 12/31/18 10:00 12/31/18 09:45 Norvasc - PO 5 mg DAILY [facility] Administration Aspirin 81 mg 12/31/18 10:00 12/31/18 09:46 Asa - PO 81 mg DAILY [facility] Administration Atorvastatin Calcium 20 mg 12/30/18 22:00 12/30/18 21:12 Lipitor - PO 20 mg HS [facility] Administration Calcium Carbonate/Cholecalciferol 1 tab 12/30/18 22:00 12/31/18 09:46 Os-Tra 500+D - PO 1 tab BID [facility] Administration Clonidine 0.2 mg 12/30/18 22:00 12/31/18 09:46 Catapres - PO 0.2 mg BID [facility] Administration Docusate Sodium 100 mg 12/30/18 22:00 12/31/18 09:45 Colace - PO 100 mg BID [facility] Administration Furosemide 40 mg 12/31/18 05:00 12/31/18 05:43 Lasix - PO 40 mg BID@0600,1400 [facility] Administration Heparin Sodium (Porcine) 5,000 unit 12/30/18 22:00 12/31/18 05:43 Heparin - SQ 5,000 unit TID [facility] Administration Insulin Aspart 30 units 12/30/18 22:00 12/31/18 06:40 Novolog Mix 70/30 Vial SQ 30 units BID@0700,2200 [facility] Administration Insulin Aspart 1 vial 12/31/18 07:00 12/31/18 06:41 Novolog Vial Sliding Scale - SQ Not Given TIDAC [facility] Protocol Lactobacillus Acidophilus 1 tab 12/31/18 10:00 12/31/18 09:46 Bacid - PO 1 tab DAILY [facility] Administration Magnesium Hydroxide 30 ml 12/30/18 19:41 Milk Of Magnesia - PO DAILY PRN CONSTIPATION Metoclopramide HCl 10 mg 12/31/18 07:00 12/31/18 06:40 Reglan - PO 10 mg TIDAC [facility] Administration Nystatin 1 applic 12/30/18 22:00 12/31/18 09:47 Mycostatin Cream - TP Not Given BID [facility] Oxycodone HCl 30 mg 12/30/18 19:41 12/30/18 21:11 Roxicodone - PO 30 mg Q3H PRN Administration PAIN LEVEL 6-10 Polyethylene Glycol 17 gm 12/30/18 22:00 12/31/18 05:44 Miralax (For Daily Use) - PO Not Given TID [facility] Senna 2 tab 12/30/18 22:00 12/30/18 21:12 Senna - PO 2 tab HS [facility] Administration Silver Sulfadiazine 1 applic 12/31/18 10:00 12/31/18 09:48 Silvadene - TP 1 applic DAILY [facility] Administration Sodium Chloride 2 spray 12/30/18 19:41 [place] Nasal [place] - NS TID PRN NASAL CONGESTION Vital Signs Period Temp Pulse Resp BP Sys/Cross Pulse Ox Last 24 Hr 97.8 F-98.4 F 60-74 14-20 95-141/54-73 99-99 Constitutional: Yes: No Distress, Calm, Obese Cardiovascular: Yes: Regular Rate and Rhythm (soft intensity sounds), S1, S2. No: JVD (++ tds exam), Gallop, Murmur Respiratory: Yes: Regular, CTA Bilaterally. No: Accessory Muscle Use, Rales, Wheezes Extremities: No: Cold Edema: No (s/p R AKA) Neurological: Yes: Alert, Oriented Psychiatric: No: Agitated CBC, BMP 12/30/18 06:19 12/31/18 06:30 Assessment/Plan EKG: sinus, low voltage, nl intervals, no ischemic changes CXR: sherrie pleural effusions CTA chest sherrie pleural effusions with consolidations echo 12/2018 nl RV/LV function, mild aortic root dilation, sm pericardial effusion <1cm tele: sinus Acute HF exacerbation, sob, possible PNA, h/o remote endocarditis (2001): - abx per primary - vol status improved. Cont po lasix. - echo nl LV function - outpt FIDEL eval chest pain: - atyp CP, resolved now - trop neg x2 - ECG non-ischemic - ? chest wall muscle strain sec to work of breathing-->planned for nuclear stress test wednesday DM - manage per primary HTN - bp stable - cont home meds HLD - cont statin
[2018-12-31] MEDS ORDERED: PT OWN MED DRAWER 7, Y5N ONE ×2 (11:42→21:50)
--- NOTE | 2018-12-31 11:57 | PN ---
Progress Note (short form) - Note Progress Note: PULMONARY States breathing is improving. No cough or wheezing. Vital Signs Period Temp Pulse Resp BP Sys/Cross Pulse Ox Last 24 Hr 97.8 F-98.4 F 60-74 14-20 101-141/54-73 98-99 Intake & Output 12/28/18 12/29/18 12/30/18 12/31/18 23:59 23:59 23:59 23:59 Intake Total 660 740 840 120 Output Total 4300 3300 2350 400 Balance -3640 -2560 -1510 -280 Weight 118.478 kg 114.2 kg Gen: NAD in chair Heart: RRR Lung: decreased breath sounds at the bases Abd: soft, nontender Ext: + edema CBC, BMP 12/30/18 06:19 12/31/18 06:30 Active Medications Acetaminophen (Tylenol -) 325 mg PO Q6H PRN PRN Reason: PAIN LEVEL 6-10 Alprazolam (Xanax) 2 mg PO Q6H PRN PRN Reason: ANXIETY Last Admin: 12/31/18 09:45 Dose: 2 mg Amlodipine Besylate (Norvasc -) 5 mg PO DAILY [facility] Last Admin: 12/31/18 09:45 Dose: 5 mg Aspirin (Asa -) 81 mg PO DAILY [facility] Last Admin: 12/31/18 09:46 Dose: 81 mg Atorvastatin Calcium (Lipitor -) 20 mg PO HS [facility] Last Admin: 12/30/18 21:12 Dose: 20 mg Calcium Carbonate/Cholecalciferol (Os-Tra 500+D -) 1 tab PO BID [facility] Last Admin: 12/31/18 09:46 Dose: 1 tab Clonidine (Catapres -) 0.2 mg PO BID [facility] Last Admin: 12/31/18 09:46 Dose: 0.2 mg Docusate Sodium (Colace -) 100 mg PO BID [facility] Last Admin: 12/31/18 09:45 Dose: 100 mg Furosemide (Lasix -) 40 mg PO BID@0600,1400 [facility] Last Admin: 12/31/18 05:43 Dose: 40 mg Heparin Sodium (Porcine) (Heparin -) 5,000 unit SQ TID [facility] Last Admin: 12/31/18 05:43 Dose: 5,000 unit Insulin Aspart (Novolog Mix 70/30 Vial) 30 units SQ BID@0700,2200 [facility] Last Admin: 12/31/18 06:40 Dose: 30 units Insulin Aspart (Novolog Vial Sliding Scale -) 1 vial SQ TIDAC [facility]; Protocol Last Admin: 12/31/18 06:41 Dose: Not Given Lactobacillus Acidophilus (Bacid -) 1 tab PO DAILY [facility] Last Admin: 12/31/18 09:46 Dose: 1 tab Magnesium Hydroxide (Milk Of Magnesia -) 30 ml PO DAILY PRN PRN Reason: CONSTIPATION Metoclopramide HCl (Reglan -) 10 mg PO TIDAC [facility] Last Admin: 12/31/18 06:40 Dose: 10 mg Nystatin (Mycostatin Cream -) 1 applic TP BID [facility] Last Admin: 12/31/18 09:47 Dose: Not Given Oxycodone HCl (Roxicodone -) 30 mg PO Q3H PRN PRN Reason: PAIN LEVEL 6-10 Last Admin: 12/30/18 21:11 Dose: 30 mg Polyethylene Glycol (Miralax (For Daily Use) -) 17 gm PO TID [facility] Last Admin: 12/31/18 05:44 Dose: Not Given Senna (Senna -) 2 tab PO HS [facility] Last Admin: 12/30/18 21:12 Dose: 2 tab Silver Sulfadiazine (Silvadene -) 1 applic TP DAILY [facility] Last Admin: 12/31/18 09:48 Dose: 1 applic Sodium Chloride ([place] Nasal [place] -) 2 spray NS TID PRN PRN Reason: NASAL CONGESTION A/P Acute Hypoxic Respiratory Failure improving Acute on Chronic Diastolic Heart Failure Volume Overload Pleural Effusions from above HTN DM Hyperlipidemia - continue lasix - monitor urine output, creatinine - keep net negative - monitor CXR with diuresis - O2 to keep SpO2 >90% - DVT prophylaxis
--- NOTE | 2018-12-31 13:21 | PN ---
Progress Note (short form) - Note Progress Note: seen and examined telemetry sittingin chair no O2 RA sat 98% breathing improved Vital Signs Period Temp Pulse Resp BP Sys/Cross Pulse Ox Last 24 Hr 97.8 F-98.4 F 60-74 14-20 101-141/54-73 98-99 Intake & Output 12/28/18 12/29/18 12/30/18 12/31/18 23:59 23:59 23:59 23:59 Intake Total 660 740 840 120 Output Total 4300 3300 2350 400 Balance -3640 -2560 -1510 -280 Weight 261 lb 3.2 oz 251 lb 12.286 oz sitting in chair heart S1/S2 lungs decreased at right base no wheezing / rhonchi abd obese / soft / non tender ext left LE with chronic changes / no edema R ARIC has open wound at stump CBC, BMP 12/30/18 06:19 12/31/18 06:30 on admission : CXR bilat pleural effusion larger right CT of chest bilat effusion with consolidation Echo 12/2018 nl RV/LV function, mild aortic root dilation, sm pericardial effusion <1cm tele: sinus Microbiology 12/24/18 08:48 Blood - Peripheral Venous Blood Culture - Final NO GROWTH AFTER 5 DAYS INCUBATION 12/24/18 08:48 Blood - Peripheral Venous Blood Culture - Final NO GROWTH AFTER 5 DAYS INCUBATION 12/24/18 05:30 Urine For Antigen Detection Legionella Antigen - Final 12/24/18 05:30 Urine For Antigen Detection Streptococcus pneumoniae Antigen (M - Final 12/24/18 11:10 Urine - Urine Clean Catch Urine Culture - Final NO GROWTH OBTAINED Active Medications Acetaminophen (Tylenol -) 325 mg PO Q6H PRN PRN Reason: PAIN LEVEL 6-10 Alprazolam (Xanax) 2 mg PO Q6H PRN PRN Reason: ANXIETY Last Admin: 12/31/18 09:45 Dose: 2 mg Amlodipine Besylate (Norvasc -) 5 mg PO DAILY [facility] Last Admin: 12/31/18 09:45 Dose: 5 mg Aspirin (Asa -) 81 mg PO DAILY [facility] Last Admin: 12/31/18 09:46 Dose: 81 mg Atorvastatin Calcium (Lipitor -) 20 mg PO HS [facility] Last Admin: 12/30/18 21:12 Dose: 20 mg Calcium Carbonate/Cholecalciferol (Os-Tra 500+D -) 1 tab PO BID [facility] Last Admin: 12/31/18 09:46 Dose: 1 tab Clonidine (Catapres -) 0.2 mg PO BID [facility] Last Admin: 12/31/18 09:46 Dose: 0.2 mg Docusate Sodium (Colace -) 100 mg PO BID [facility] Last Admin: 12/31/18 09:45 Dose: 100 mg Furosemide (Lasix -) 40 mg PO BID@0600,1400 [facility] Last Admin: 12/31/18 05:43 Dose: 40 mg Heparin Sodium (Porcine) (Heparin -) 5,000 unit SQ TID [facility] Last Admin: 12/31/18 05:43 Dose: 5,000 unit Insulin Aspart (Novolog Mix 70/30 Vial) 30 units SQ BID@0700,2200 [facility] Last Admin: 12/31/18 06:40 Dose: 30 units Insulin Aspart (Novolog Vial Sliding Scale -) 1 vial SQ TIDAC [facility]; Protocol Last Admin: 12/31/18 11:57 Dose: 4 units Lactobacillus Acidophilus (Bacid -) 1 tab PO DAILY [facility] Last Admin: 12/31/18 09:46 Dose: 1 tab Magnesium Hydroxide (Milk Of Magnesia -) 30 ml PO DAILY PRN PRN Reason: CONSTIPATION Metoclopramide HCl (Reglan -) 10 mg PO TIDAC [facility] Last Admin: 12/31/18 11:57 Dose: 10 mg Nystatin (Mycostatin Cream -) 1 applic TP BID [facility] Last Admin: 12/31/18 09:47 Dose: Not Given Oxycodone HCl (Roxicodone -) 30 mg PO Q3H PRN PRN Reason: PAIN LEVEL 6-10 Last Admin: 12/30/18 21:11 Dose: 30 mg Polyethylene Glycol (Miralax (For Daily Use) -) 17 gm PO TID [facility] Last Admin: 12/31/18 05:44 Dose: Not Given Senna (Senna -) 2 tab PO HS [facility] Last Admin: 12/30/18 21:12 Dose: 2 tab Silver Sulfadiazine (Silvadene -) 1 applic TP DAILY [facility] Last Admin: 12/31/18 09:48 Dose: 1 applic Sodium Chloride ([place] Nasal [place] -) 2 spray NS TID PRN PRN Reason: NASAL CONGESTION ASS/PLAN # new onset HF acute on chronic diastolic HF hypoxemic resp failure due to large bilat effusions Cardiomegaly on CXR/ CT - ECHO done - EF 60%, nl LV/RV function IV lasix to PO remains in negative balance monitor renal function and lytes, Cr has remained stable I & O - output > liters > 30 lbs weight loss appreciate Cardio and pulmonary consults agree will need cardiac work up # DM ADA diet continue Insulin # Hypoxemic respiratory failure resolved RA @ 98% # HTN continue home meds if Bp permits # chronic pain syndrome continue out patient meds # 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 # non healing wound to Stump scheduled for wound clinic as out patient silvadene to open wound / change daily Problem List - Problems (1) Bilateral pleural effusion Code(s): J90 - PLEURAL EFFUSION, NOT ELSEWHERE CLASSIFIED (2) Hypoxemia requiring supplemental oxygen Code(s): R09.02 - HYPOXEMIA; Z99.81 - DEPENDENCE ON SUPPLEMENTAL OXYGEN (3) Amputation of right lower extremity below knee Code(s): Z89.511 - ACQUIRED ABSENCE OF RIGHT LEG BELOW KNEE (4) Anxiety Code(s): F41.9 - ANXIETY DISORDER, UNSPECIFIED (5) Chronic pain Code(s): G89.29 - OTHER CHRONIC PAIN (6) Diabetes mellitus Code(s): E11.9 - TYPE 2 DIABETES MELLITUS WITHOUT COMPLICATIONS (7) HLD (hyperlipidemia) Code(s): E78.5 - HYPERLIPIDEMIA, UNSPECIFIED (8) HTN (hypertension) Code(s): I10 - ESSENTIAL (PRIMARY) HYPERTENSION (9) Hepatitis C Code(s): B19.20 - UNSPECIFIED VIRAL HEPATITIS C WITHOUT HEPATIC COMA (10) Opioid dependence on agonist therapy Code(s): F11.20 - OPIOID DEPENDENCE, UNCOMPLICATED (11) PTSD (post-traumatic stress disorder) Code(s): F43.10 - POST-TRAUMATIC STRESS DISORDER, UNSPECIFIED (12) Peripheral neuropathy Code(s): G62.9 - POLYNEUROPATHY, UNSPECIFIED Qualifiers:
[2018-12-31] MEDS: oxyCODONE HCL 5 MG TABLET PO PRN ×2 (16:37→21:59)
[2018-12-31] MEDS: ATORVASTATIN CA 20 MG TABLET (FP) PO SCH (22:01)
[2018-12-31] MEDS: SENNOSIDES 8.6MG TABLET (FP) PO SCH (22:02)
[2019-01-01] MEDS: INSULIN SLIDING SCALE (NOVOLOG) 1 VIAL SQ SCH ×3 (06:24→17:14)
[2019-01-01] MEDS: HEPARIN NA (PORCINE) 5,000 UNITS/ML 1ML VIAL SQ SCH ×3 (06:24→21:47)
[2019-01-01] MEDS: INSULIN (NOVOLOG MIX 70/30) 100 UNITS/ML MDV SQ SCH ×2 (06:25→21:49)
[2019-01-01] MEDS: POLYETHYLENE GLYCOL 3350 119 GM BTL PO SCH ×3 (06:25→21:49)
[2019-01-01] MEDS: FUROSEMIDE 40 MG TABLET (FP) PO SCH ×2 (06:25→13:27)
[2019-01-01] MEDS ORDERED: PT OWN MED DRAWER 7, Y5N ONE ×2 (06:27→13:30)
[2019-01-01] MEDS: ALPRAZolam 1 MG TABLET PO PRN ×2 (06:36→21:41)
[2019-01-01 07:24] LABS: BASO % 0.5 % (0-2.0); EOS % 3.3 % (0-4.5); HEMATOCRIT 35.1 % (35.4-49); HEMOGLOBIN 11.7 GM/dL (11.7-16.9); LYMPH % 26.7 % (8-40); MCHC 33.3 g/dl (32.0-35.9); MEAN CELL VOLUME 80.9 fl (80-96); MEAN PLT VOLUME 8.8 fl (7.5-11.1); MONO % 8.7 % (3.8-10.2); NEUT % 60.8 % (42.8-82.8); PLATELET COUNT 175 K/MM3 (134-434); RBC 4.35 M/mm3 (4.00-5.60); RDW 15.3 % (11.9-15.9); WHITE BLOOD COUNT 7.2 K/mm3 (4.0-10.0)
[2019-01-01 07:36] LABS: BLOOD UREA NITROGEN 27.6 mg/dL (7-18); CALCIUM 8.7 mg/dL (8.5-10.1); CREATININE 1.1 mg/dL (0.55-1.3); POTASSIUM 3.6 mmol/L (3.5-5.1)
[2019-01-01] MEDS: LACTOBACILLUS ACIDOPHILUS 1 TABLET PO SCH (09:55)
[2019-01-01] MEDS: DOCUSATE SODIUM 100 MG CAPSULE (FP) PO SCH ×2 (09:55→21:45)
[2019-01-01] MEDS: CALCIUM 500MG/VIT-D 200 UNITS COMBO TABLET (FP) PO SCH ×2 (09:55→21:46)
[2019-01-01] MEDS: ASPIRIN 81 MG CHEWABLE TABLETS PO SCH (09:55)
[2019-01-01] MEDS: cloNIDine HCL 0.1 MG TABLET PO SCH ×2 (09:55→21:56)
[2019-01-01] MEDS: NYSTATIN 100,000 UNIT/GM TOPICAL CREAM 15 GM TUBE TP SCH ×2 (09:56→21:51)
[2019-01-01] MEDS: amLODIPine BESYLATE 5 MG TABLET (FP) PO SCH (09:56)
--- NOTE | 2019-01-01 10:54 | PN ---
Progress Note (short form) - Note Progress Note: s: no chest pain, palps, dizziness sob Current Medications Generic Name Dose Route Start Last Admin Trade Name Freq PRN Reason Stop Dose Admin Acetaminophen 325 mg 12/30/18 19:59 12/31/18 16:39 Tylenol - PO 325 mg Q6H PRN Administration PAIN LEVEL 6-10 Alprazolam 2 mg 12/30/18 19:41 01/01/19 06:36 Xanax PO 2 mg Q6H PRN Administration ANXIETY Amlodipine Besylate 5 mg 12/31/18 10:00 01/01/19 09:56 Norvasc - PO 5 mg DAILY [facility] Administration Aspirin 81 mg 12/31/18 10:00 01/01/19 09:55 Asa - PO 81 mg DAILY [facility] Administration Atorvastatin Calcium 20 mg 12/30/18 22:00 12/31/18 22:01 Lipitor - PO 20 mg HS [facility] Administration Calcium Carbonate/Cholecalciferol 1 tab 12/30/18 22:00 01/01/19 09:55 Os-Tra 500+D - PO 1 tab BID [facility] Administration Clonidine 0.2 mg 12/30/18 22:00 01/01/19 09:55 Catapres - PO 0.2 mg BID [facility] Administration Docusate Sodium 100 mg 12/30/18 22:00 01/01/19 09:55 Colace - PO 100 mg BID [facility] Administration Furosemide 40 mg 12/31/18 05:00 01/01/19 06:25 Lasix - PO 40 mg BID@0600,1400 [facility] Administration Heparin Sodium (Porcine) 5,000 unit 12/30/18 22:00 01/01/19 06:24 Heparin - SQ 5,000 unit TID [facility] Administration Insulin Aspart 30 units 12/30/18 22:00 01/01/19 06:25 Novolog Mix 70/30 Vial SQ 30 units BID@0700,2200 [facility] Administration Insulin Aspart 1 vial 12/31/18 07:00 01/01/19 06:24 Novolog Vial Sliding Scale - SQ Not Given TIDAC [facility] Protocol Lactobacillus Acidophilus 1 tab 12/31/18 10:00 01/01/19 09:55 Bacid - PO 1 tab DAILY [facility] Administration Magnesium Hydroxide 30 ml 12/30/18 19:41 Milk Of Magnesia - PO DAILY PRN CONSTIPATION Metoclopramide HCl 10 mg 12/31/18 07:00 12/31/18 16:44 Reglan - PO 10 mg TIDAC [facility] Administration Nystatin 1 applic 12/30/18 22:00 01/01/19 09:56 Mycostatin Cream - TP Not Given BID [facility] Oxycodone HCl 30 mg 12/30/18 19:41 12/31/18 21:59 Roxicodone - PO 30 mg Q3H PRN Administration PAIN LEVEL 6-10 Polyethylene Glycol 17 gm 12/30/18 22:00 01/01/19 06:25 Miralax (For Daily Use) - PO 17 grams TID [facility] Administration Senna 2 tab 12/30/18 22:00 12/31/18 22:02 Senna - PO 2 tab HS [facility] Administration Silver Sulfadiazine 1 applic 12/31/18 10:00 12/31/18 09:48 Silvadene - TP 1 applic DAILY [facility] Administration Sodium Chloride 2 spray 12/30/18 19:41 [place] Nasal [place] - NS TID PRN NASAL CONGESTION Vital Signs Period Temp Pulse Resp BP Sys/Cross Pulse Ox Last 24 Hr 97.8 F-99 F 52-70 18-20 113-158/46-67 98-98 Constitutional: Yes: No Distress, Calm, Obese Cardiovascular: Yes: Regular Rate and Rhythm (soft intensity sounds), S1, S2. No: JVD Gallop, Murmur Respiratory: Yes: Regular, CTA Bilaterally. No: Accessory Muscle Use, Rales, Wheezes Extremities: No: Cold Edema: No (s/p R AKA) Neurological: Yes: Alert, Oriented Psychiatric: No: Agitated CBC, BMP 01/01/19 05:50 01/01/19 05:50 Assessment/Plan EKG: sinus, low voltage, nl intervals, no ischemic changes CXR: sherrie pleural effusions CTA chest sherrie pleural effusions with consolidations echo 12/2018 nl RV/LV function, mild aortic root dilation, sm pericardial effusion <1cm tele: sinus Acute HF exacerbation, sob, possible PNA, h/o remote endocarditis (2001): - abx per primary - vol status improved. Cont po lasix. - echo nl LV function - outpt FIDEL eval chest pain: - atyp CP, resolved now - trop neg x2 - ECG non-ischemic - ? chest wall muscle strain sec to work of breathing-->planned for nuclear stress test tomorrow, if benign then ok for dc from cardiac pov DM - manage per primary HTN - bp stable - cont home meds HLD - cont statin
--- NOTE | 2019-01-01 11:03 | PN ---
Progress Note (short form) - Note Progress Note: PULMONARY States breathing continues to improve. No cough or wheezing. Vital Signs Period Temp Pulse Resp BP Sys/Cross Pulse Ox Last 24 Hr 97.8 F-99 F 52-70 18-20 113-158/46-67 98-98 Intake & Output 12/29/18 12/30/18 12/31/18 01/01/19 23:59 23:59 23:59 23:59 Intake Total 740 840 120 180 Output Total 3300 2350 400 1200 Balance -2560 -1510 -280 -1020 Weight 114.2 kg 104.381 kg Gen: NAD in chair Heart: RRR Lung: decreased breath sounds at the bases Abd: soft, nontender Ext: R BKA, less edema CBC, BMP 01/01/19 05:50 01/01/19 05:50 Active Medications Acetaminophen (Tylenol -) 325 mg PO Q6H PRN PRN Reason: PAIN LEVEL 6-10 Last Admin: 12/31/18 16:39 Dose: 325 mg Alprazolam (Xanax) 2 mg PO Q6H PRN PRN Reason: ANXIETY Last Admin: 01/01/19 06:36 Dose: 2 mg Amlodipine Besylate (Norvasc -) 5 mg PO DAILY [facility] Last Admin: 01/01/19 09:56 Dose: 5 mg Aspirin (Asa -) 81 mg PO DAILY [facility] Last Admin: 01/01/19 09:55 Dose: 81 mg Atorvastatin Calcium (Lipitor -) 20 mg PO HS [facility] Last Admin: 12/31/18 22:01 Dose: 20 mg Calcium Carbonate/Cholecalciferol (Os-Tra 500+D -) 1 tab PO BID [facility] Last Admin: 01/01/19 09:55 Dose: 1 tab Clonidine (Catapres -) 0.2 mg PO BID [facility] Last Admin: 01/01/19 09:55 Dose: 0.2 mg Docusate Sodium (Colace -) 100 mg PO BID [facility] Last Admin: 01/01/19 09:55 Dose: 100 mg Furosemide (Lasix -) 40 mg PO BID@0600,1400 [facility] Last Admin: 01/01/19 06:25 Dose: 40 mg Heparin Sodium (Porcine) (Heparin -) 5,000 unit SQ TID [facility] Last Admin: 01/01/19 06:24 Dose: 5,000 unit Insulin Aspart (Novolog Mix 70/30 Vial) 30 units SQ BID@0700,2200 [facility] Last Admin: 01/01/19 06:25 Dose: 30 units Insulin Aspart (Novolog Vial Sliding Scale -) 1 vial SQ TIDAC [facility]; Protocol Last Admin: 01/01/19 06:24 Dose: Not Given Lactobacillus Acidophilus (Bacid -) 1 tab PO DAILY [facility] Last Admin: 01/01/19 09:55 Dose: 1 tab Magnesium Hydroxide (Milk Of Magnesia -) 30 ml PO DAILY PRN PRN Reason: CONSTIPATION Metoclopramide HCl (Reglan -) 10 mg PO TIDAC [facility] Last Admin: 12/31/18 16:44 Dose: 10 mg Nystatin (Mycostatin Cream -) 1 applic TP BID [facility] Last Admin: 01/01/19 09:56 Dose: Not Given Oxycodone HCl (Roxicodone -) 30 mg PO Q3H PRN PRN Reason: PAIN LEVEL 6-10 Last Admin: 12/31/18 21:59 Dose: 30 mg Polyethylene Glycol (Miralax (For Daily Use) -) 17 gm PO TID [facility] Last Admin: 01/01/19 06:25 Dose: 17 grams Senna (Senna -) 2 tab PO HS [facility] Last Admin: 12/31/18 22:02 Dose: 2 tab Silver Sulfadiazine (Silvadene -) 1 applic TP DAILY [facility] Last Admin: 12/31/18 09:48 Dose: 1 applic Sodium Chloride ([place] Nasal [place] -) 2 spray NS TID PRN PRN Reason: NASAL CONGESTION A/P Acute Hypoxic Respiratory Failure improving Acute on Chronic Diastolic Heart Failure Volume Overload Pleural Effusions from above HTN DM Hyperlipidemia - continue lasix - monitor urine output, creatinine - keep net negative - for stress test - O2 to keep SpO2 >90% - DVT prophylaxis
--- NOTE | 2019-01-01 12:16 | PN ---
Progress Note (short form) - Note Progress Note: seen and examined telemetry in bed sister at [facility] RA sat 98% breathing improved Vital Signs Period Temp Pulse Resp BP Sys/Cross Pulse Ox Last 24 Hr 97.8 F-98.4 F 60-74 14-20 101-141/54-73 98-99 Intake & Output 12/28/18 12/29/18 12/30/18 12/31/18 23:59 23:59 23:59 23:59 Intake Total 660 740 840 120 Output Total 4300 3300 2350 400 Balance -3640 -2560 -1510 -280 Weight 261 lb 3.2 oz 251 lb 12.286 oz Intake & Output 12/29/18 12/30/18 12/31/18 01/01/19 23:59 23:59 23:59 23:59 Intake Total 740 840 120 430 Output Total 3300 2350 400 1200 Balance -2560 -1510 -280 -770 Weight 251 lb 12.286 oz 230 lb 1.92 oz todays weight is incorrect heart S1/S2 lungs clear bilat no wheezing / rhonchi abd obese / soft / non tender ext left LE with chronic changes / no edema R BKMarlene has open wound at stump CBC, BMP 01/01/19 05:50 01/01/19 05:50 CBC, BMP 12/30/18 06:19 12/31/18 06:30 CXR 01/01 bila effusions resolved on admission : CXR bilat pleural effusion larger right CT of chest bilat effusion with consolidation Echo 12/2018 nl RV/LV function, mild aortic root dilation, sm pericardial effusion <1cm tele: sinus Microbiology 12/24/18 08:48 Blood - Peripheral Venous Blood Culture - Final NO GROWTH AFTER 5 DAYS INCUBATION 12/24/18 08:48 Blood - Peripheral Venous Blood Culture - Final NO GROWTH AFTER 5 DAYS INCUBATION 12/24/18 05:30 Urine For Antigen Detection Legionella Antigen - Final 12/24/18 05:30 Urine For Antigen Detection Streptococcus pneumoniae Antigen (M - Final 12/24/18 11:10 Urine - Urine Clean Catch Urine Culture - Final NO GROWTH OBTAINED Active Medications Acetaminophen (Tylenol -) 325 mg PO Q6H PRN PRN Reason: PAIN LEVEL 6-10 Last Admin: 12/31/18 16:39 Dose: 325 mg Alprazolam (Xanax) 2 mg PO Q6H PRN PRN Reason: ANXIETY Last Admin: 01/01/19 06:36 Dose: 2 mg Amlodipine Besylate (Norvasc -) 5 mg PO DAILY [facility] Last Admin: 01/01/19 09:56 Dose: 5 mg Aspirin (Asa -) 81 mg PO DAILY [facility] Last Admin: 01/01/19 09:55 Dose: 81 mg Atorvastatin Calcium (Lipitor -) 20 mg PO HS [facility] Last Admin: 12/31/18 22:01 Dose: 20 mg Calcium Carbonate/Cholecalciferol (Os-Tra 500+D -) 1 tab PO BID [facility] Last Admin: 01/01/19 09:55 Dose: 1 tab Clonidine (Catapres -) 0.2 mg PO BID [facility] Last Admin: 01/01/19 09:55 Dose: 0.2 mg Docusate Sodium (Colace -) 100 mg PO BID [facility] Last Admin: 01/01/19 09:55 Dose: 100 mg Furosemide (Lasix -) 40 mg PO BID@0600,1400 [facility] Last Admin: 01/01/19 06:25 Dose: 40 mg Heparin Sodium (Porcine) (Heparin -) 5,000 unit SQ TID [facility] Last Admin: 01/01/19 06:24 Dose: 5,000 unit Insulin Aspart (Novolog Mix 70/30 Vial) 30 units SQ BID@0700,2200 [facility] Last Admin: 01/01/19 06:25 Dose: 30 units Insulin Aspart (Novolog Vial Sliding Scale -) 1 vial SQ TIDAC [facility]; Protocol Last Admin: 01/01/19 11:47 Dose: Not Given Lactobacillus Acidophilus (Bacid -) 1 tab PO DAILY [facility] Last Admin: 01/01/19 09:55 Dose: 1 tab Magnesium Hydroxide (Milk Of Magnesia -) 30 ml PO DAILY PRN PRN Reason: CONSTIPATION Metoclopramide HCl (Reglan -) 10 mg PO TIDAC [facility] Last Admin: 12/31/18 16:44 Dose: 10 mg Nystatin (Mycostatin Cream -) 1 applic TP BID [facility] Last Admin: 01/01/19 09:56 Dose: Not Given Oxycodone HCl (Roxicodone -) 30 mg PO Q3H PRN PRN Reason: PAIN LEVEL 6-10 Last Admin: 12/31/18 21:59 Dose: 30 mg Polyethylene Glycol (Miralax (For Daily Use) -) 17 gm PO TID [facility] Last Admin: 01/01/19 06:25 Dose: 17 grams Senna (Senna -) 2 tab PO HS [facility] Last Admin: 12/31/18 22:02 Dose: 2 tab Silver Sulfadiazine (Silvadene -) 1 applic TP DAILY [facility] Last Admin: 12/31/18 09:48 Dose: 1 applic Sodium Chloride ([place] Nasal [place] -) 2 spray NS TID PRN PRN Reason: NASAL CONGESTION ASS/PLAN # new onset HF acute on chronic diastolic HF hypoxemic resp failure due to large bilat effusions Cardiomegaly on CXR/ CT - ECHO done - EF 60%, nl LV/RV function IV lasix to PO remains in negative balance monitor renal function and lytes, Cr has remained stable > 30 lbs weight loss appreciate Cardio and pulmonary consults agree will need cardiac work up he is planned for nuclear stress test in am if negative will arrange for d/c # DM ADA diet continue Insulin # Hypoxemic respiratory failure resolved RA @ 98% # HTN continue home meds if Bp permits # chronic pain syndrome continue out patient meds # 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 # non healing wound to Stump scheduled for wound clinic as out patient silvadene to open wound / change daily Problem List - Problems (1) Bilateral pleural effusion Code(s): J90 - PLEURAL EFFUSION, NOT ELSEWHERE CLASSIFIED (2) Hypoxemia requiring supplemental oxygen Code(s): R09.02 - HYPOXEMIA; Z99.81 - DEPENDENCE ON SUPPLEMENTAL OXYGEN (3) Amputation of right lower extremity below knee Code(s): Z89.511 - ACQUIRED ABSENCE OF RIGHT LEG BELOW KNEE (4) Anxiety Code(s): F41.9 - ANXIETY DISORDER, UNSPECIFIED (5) Chronic pain Code(s): G89.29 - OTHER CHRONIC PAIN (6) Diabetes mellitus Code(s): E11.9 - TYPE 2 DIABETES MELLITUS WITHOUT COMPLICATIONS (7) HLD (hyperlipidemia) Code(s): E78.5 - HYPERLIPIDEMIA, UNSPECIFIED (8) HTN (hypertension) Code(s): I10 - ESSENTIAL (PRIMARY) HYPERTENSION (9) Hepatitis C Code(s): B19.20 - UNSPECIFIED VIRAL HEPATITIS C WITHOUT HEPATIC COMA (10) Opioid dependence on agonist therapy Code(s): F11.20 - OPIOID DEPENDENCE, UNCOMPLICATED (11) PTSD (post-traumatic stress disorder) Code(s): F43.10 - POST-TRAUMATIC STRESS DISORDER, UNSPECIFIED (12) Peripheral neuropathy Code(s): G62.9 - POLYNEUROPATHY, UNSPECIFIED Qualifiers:
[2019-01-01] MEDS: METOCLOPRAMIDE HCL 10 MG TABLET (FP) PO SCH ×2 (13:30→17:14)
[2019-01-01] MEDS: SILVER SULFADIAZINE 1% TOP CREAM 400 GM JAR TP SCH (17:44)
[2019-01-01] MEDS: oxyCODONE HCL 5 MG TABLET PO PRN (21:40)
[2019-01-01] MEDS: ATORVASTATIN CA 20 MG TABLET (FP) PO SCH (21:45)
[2019-01-01] MEDS: SENNOSIDES 8.6MG TABLET (FP) PO SCH (21:46)
[2019-01-02] MEDS: HEPARIN NA (PORCINE) 5,000 UNITS/ML 1ML VIAL SQ SCH ×3 (06:12→21:52)
[2019-01-02] MEDS: POLYETHYLENE GLYCOL 3350 119 GM BTL PO SCH ×3 (06:13→21:52)
[2019-01-02] MEDS: FUROSEMIDE 40 MG TABLET (FP) PO SCH ×2 (06:13→13:50)
[2019-01-02] MEDS: INSULIN (NOVOLOG MIX 70/30) 100 UNITS/ML MDV SQ SCH ×2 (06:13→21:52)
[2019-01-02] MEDS: INSULIN SLIDING SCALE (NOVOLOG) 1 VIAL SQ SCH ×3 (06:14→16:37)
[2019-01-02] MEDS: METOCLOPRAMIDE HCL 10 MG TABLET (FP) PO SCH ×4 (06:16→16:39)
[2019-01-02 06:39] LABS: BASO % 0.7 % (0-2.0); HEMATOCRIT 37.2 % (35.4-49); HEMOGLOBIN 12.3 GM/dL (11.7-16.9); LYMPH % 24.7 % (8-40); MCHC 33.1 g/dl (32.0-35.9); MEAN CELL VOLUME 81.5 fl (80-96); MEAN PLT VOLUME 8.9 fl (7.5-11.1); NEUT % 63.6 % (42.8-82.8); PLATELET COUNT 189 K/MM3 (134-434); RBC 4.56 M/mm3 (4.00-5.60); RDW 15.1 % (11.9-15.9); WHITE BLOOD COUNT 7.6 K/mm3 (4.0-10.0)
[2019-01-02 06:53] LABS: BLOOD UREA NITROGEN 23.9 mg/dL (7-18); CALCIUM 8.8 mg/dL (8.5-10.1); CREATININE 1.2 mg/dL (0.55-1.3); MAGNESIUM 2.1 mg/dL (1.8-2.4); POTASSIUM 3.8 mmol/L (3.5-5.1)
[2019-01-02] MEDS: ALPRAZolam 1 MG TABLET PO PRN ×2 (07:32→21:50)
[2019-01-02] MEDS ORDERED: REGADENOSON 0.4 MG/5 ML PRE-FILLED SYRINGE IVPUSH ONE ×2 (09:10→09:15)
[2019-01-02] MEDS ORDERED: PT OWN MED DRAWER 7, Y5N ONE (10:12)
--- NOTE | 2019-01-02 11:29 | PN ---
Progress Note (short form) - Note Progress Note: PULMONARY For stress test today. No shortness of breath Vital Signs Period Temp Pulse Resp BP Sys/Cross Pulse Ox Last 24 Hr 98.6 F 57-70 12-20 125-161/62-81 96-98 Intake & Output 12/30/18 12/31/18 01/01/19 01/02/19 23:59 23:59 23:59 23:59 Intake Total 840 120 670 Output Total 2350 400 2350 300 Balance -1510 -280 -1680 -300 Weight 114.2 kg 104.381 kg 111.765 kg Gen: NAD in chair Heart: RRR Lung: decreased breath sounds at the bases Abd: soft, nontender Ext: R BKA, less edema CBC, BMP 01/02/19 05:53 01/02/19 05:53 Active Medications Acetaminophen (Tylenol -) 325 mg PO Q6H PRN PRN Reason: PAIN LEVEL 6-10 Last Admin: 12/31/18 16:39 Dose: 325 mg Alprazolam (Xanax) 2 mg PO Q6H PRN PRN Reason: ANXIETY Last Admin: 01/02/19 07:32 Dose: 2 mg Amlodipine Besylate (Norvasc -) 5 mg PO DAILY [facility] Last Admin: 01/01/19 09:56 Dose: 5 mg Aspirin (Asa -) 81 mg PO DAILY [facility] Last Admin: 01/01/19 09:55 Dose: 81 mg Atorvastatin Calcium (Lipitor -) 20 mg PO HS [facility] Last Admin: 01/01/19 21:45 Dose: 20 mg Calcium Carbonate/Cholecalciferol (Os-Tra 500+D -) 1 tab PO BID [facility] Last Admin: 01/01/19 21:46 Dose: 1 tab Clonidine (Catapres -) 0.2 mg PO BID [facility] Last Admin: 01/01/19 21:56 Dose: 0.2 mg Docusate Sodium (Colace -) 100 mg PO BID [facility] Last Admin: 01/01/19 21:45 Dose: 100 mg Furosemide (Lasix -) 40 mg PO BID@0600,1400 [facility] Last Admin: 01/02/19 06:13 Dose: Not Given Heparin Sodium (Porcine) (Heparin -) 5,000 unit SQ TID [facility] Last Admin: 01/02/19 06:12 Dose: 5,000 unit Insulin Aspart (Novolog Mix 70/30 Vial) 30 units SQ BID@0700,2200 [facility] Last Admin: 01/02/19 06:13 Dose: 30 units Insulin Aspart (Novolog Vial Sliding Scale -) 1 vial SQ TIDAC [facility]; Protocol Last Admin: 01/02/19 06:14 Dose: 2 units Lactobacillus Acidophilus (Bacid -) 1 tab PO DAILY [facility] Last Admin: 01/01/19 09:55 Dose: 1 tab Magnesium Hydroxide (Milk Of Magnesia -) 30 ml PO DAILY PRN PRN Reason: CONSTIPATION Metoclopramide HCl (Reglan -) 10 mg PO TIDAC [facility] Last Admin: 01/02/19 06:16 Dose: Not Given Nystatin (Mycostatin Cream -) 1 applic TP BID [facility] Last Admin: 01/01/19 21:51 Dose: Not Given Oxycodone HCl (Roxicodone -) 30 mg PO Q3H PRN PRN Reason: PAIN LEVEL 6-10 Last Admin: 01/01/19 21:40 Dose: 30 mg Polyethylene Glycol (Miralax (For Daily Use) -) 17 gm PO TID [facility] Last Admin: 01/02/19 06:13 Dose: Not Given Senna (Senna -) 2 tab PO HS [facility] Last Admin: 01/01/19 21:46 Dose: 2 tab Silver Sulfadiazine (Silvadene -) 1 applic TP DAILY [facility] Last Admin: 01/01/19 17:44 Dose: 1 applic Sodium Chloride ([place] Nasal [place] -) 2 spray NS TID PRN PRN Reason: NASAL CONGESTION A/P Acute Hypoxic Respiratory Failure improving Acute on Chronic Diastolic Heart Failure Volume Overload Pleural Effusions from above HTN DM Hyperlipidemia - continue lasix - monitor urine output, creatinine - keep net negative - f/u stress test - O2 to keep SpO2 >90% - DVT prophylaxis
[2019-01-02] MEDS: oxyCODONE HCL 5 MG TABLET PO PRN ×2 (12:10→18:28)
[2019-01-02] MEDS: CALCIUM 500MG/VIT-D 200 UNITS COMBO TABLET (FP) PO SCH ×2 (12:11→21:50)
[2019-01-02] MEDS: LACTOBACILLUS ACIDOPHILUS 1 TABLET PO SCH (12:11)
[2019-01-02] MEDS: ASPIRIN 81 MG CHEWABLE TABLETS PO SCH (12:11)
[2019-01-02] MEDS: cloNIDine HCL 0.1 MG TABLET PO SCH ×2 (12:11→21:50)
[2019-01-02] MEDS: amLODIPine BESYLATE 5 MG TABLET (FP) PO SCH (12:12)
[2019-01-02] MEDS: DOCUSATE SODIUM 100 MG CAPSULE (FP) PO SCH ×2 (12:12→21:52)
[2019-01-02] MEDS: NYSTATIN 100,000 UNIT/GM TOPICAL CREAM 15 GM TUBE TP SCH ×2 (12:21→21:57)
[2019-01-02] MEDS: SILVER SULFADIAZINE 1% TOP CREAM 400 GM JAR TP SCH (12:21)
--- NOTE | 2019-01-02 14:32 | PN ---
Progress Note (short form) - Note Progress Note: s: no chest pain, palps, dizziness sob Current Medications Acetaminophen (Tylenol -) 325 mg PO Q6H PRN PRN Reason: PAIN LEVEL 6-10 Last Admin: 12/31/18 16:39 Dose: 325 mg Alprazolam (Xanax) 2 mg PO Q6H PRN PRN Reason: ANXIETY Last Admin: 01/02/19 07:32 Dose: 2 mg Amlodipine Besylate (Norvasc -) 5 mg PO DAILY [facility] Last Admin: 01/02/19 12:12 Dose: 5 mg Aspirin (Asa -) 81 mg PO DAILY [facility] Last Admin: 01/02/19 12:11 Dose: 81 mg Atorvastatin Calcium (Lipitor -) 20 mg PO HS [facility] Last Admin: 01/01/19 21:45 Dose: 20 mg Calcium Carbonate/Cholecalciferol (Os-Tra 500+D -) 1 tab PO BID [facility] Last Admin: 01/02/19 12:11 Dose: 1 tab Clonidine (Catapres -) 0.2 mg PO BID [facility] Last Admin: 01/02/19 12:11 Dose: 0.2 mg Docusate Sodium (Colace -) 100 mg PO BID [facility] Last Admin: 01/02/19 12:12 Dose: 100 mg Furosemide (Lasix -) 40 mg PO BID@0600,1400 [facility] Last Admin: 01/02/19 13:50 Dose: 40 mg Heparin Sodium (Porcine) (Heparin -) 5,000 unit SQ TID [facility] Last Admin: 01/02/19 13:49 Dose: 5,000 unit Insulin Aspart (Novolog Mix 70/30 Vial) 30 units SQ BID@0700,2200 [facility] [place] Last Admin: 01/02/19 06:13 Dose: 30 units Insulin Aspart (Novolog Vial Sliding Scale -) 1 vial SQ TIDAC [facility]; Protocol Last Admin: 01/02/19 12:25 Dose: Not Given Lactobacillus Acidophilus (Bacid -) 1 tab PO DAILY [facility] Last Admin: 01/02/19 12:11 Dose: 1 tab Magnesium Hydroxide (Milk Of Magnesia -) 30 ml PO DAILY PRN PRN Reason: CONSTIPATION Metoclopramide HCl (Reglan -) 10 mg PO TIDAC [facility] Last Admin: 01/02/19 12:21 Dose: 10 mg Nystatin (Mycostatin Cream -) 1 applic TP BID [facility] Last Admin: 01/02/19 12:21 Dose: 1 applic Oxycodone HCl (Roxicodone -) 30 mg PO Q3H PRN PRN Reason: PAIN LEVEL 6-10 Last Admin: 01/02/19 12:10 Dose: 30 mg Polyethylene Glycol (Miralax (For Daily Use) -) 17 gm PO TID [facility] [place] Last Admin: 01/02/19 13:49 Dose: 17 grams Senna (Senna -) 2 tab PO HS [facility] [place] Last Admin: 01/01/19 21:46 Dose: 2 tab Silver Sulfadiazine (Silvadene -) 1 applic TP DAILY [facility] [place] Last Admin: 01/02/19 12:21 Dose: 1 applic Sodium Chloride ([place] Nasal [place] -) 2 spray NS TID PRN PRN Reason: NASAL CONGESTION Vital Signs Period Temp Pulse Resp BP Sys/Cross Pulse Ox Last 24 Hr 98.6 F 57-70 12-22 125-161/62-81 96-98 Constitutional: Yes: No Distress, Calm, Obese Cardiovascular: Yes: Regular Rate and Rhythm (soft intensity sounds), S1, S2. No: JVD Gallop, Murmur Respiratory: Yes: Regular, CTA Bilaterally. No: Accessory Muscle Use, Rales, Wheezes Extremities: No: Cold Edema: No (s/p R AKA) Neurological: Yes: Alert, Oriented Psychiatric: No: Agitated no jaundice, diaphoresis Assessment/Plan EKG: sinus, low voltage, nl intervals, no ischemic changes CXR: sherrie pleural effusions CTA chest sherrie pleural effusions with consolidations echo 12/2018 nl RV/LV function, mild aortic root dilation, sm pericardial effusion <1cm tele: sinus Acute HF exacerbation, sob, possible PNA, h/o remote endocarditis (2001): - abx per primary - vol status improved. Cont po lasix. - echo nl LV function - outpt [facility] eval chest pain: - atyp CP, resolved now - trop neg x2 - ECG non-ischemic - may be chest wall muscle strain sec to work of breathing - mibi today showed no ischemia, nl EF. stable for dc from cardiac pov DM - manage per primary HTN - bp stable - cont home meds HLD - cont statin
--- NOTE | 2019-01-02 20:57 | PN ---
Progress Note (short form) - Note Progress Note: seen and examined telemetry sitting in chair / comfortable RA sat 98% breathing improved Vital Signs Period Temp Pulse Resp BP Sys/Cross Pulse Ox Last 24 Hr 98.6 F-98.7 F 57-70 12-22 103-161/62-81 96-98 Intake & Output 12/30/18 12/31/18 01/01/19 01/02/19 23:59 23:59 23:59 23:59 Intake Total 840 120 670 300 Output Total 2350 400 2350 1000 Balance -1510 -280 -1680 -700 Weight 251 lb 12.286 oz 230 lb 1.92 oz 246 lb 6.4 oz heart S1/S2 lungs clear bilat no wheezing / rhonchi abd obese / soft / non tender ext left LE with chronic changes / no edema R BKMarlene has open wound at stump CBC, BMP 01/02/19 05:53 01/02/19 05:53 CBC, BMP 01/01/19 05:50 01/01/19 05:50 CXR 01/01 bila effusions resolved on admission : CXR bilat pleural effusion larger right CT of chest bilat effusion with consolidation Echo 12/2018 nl RV/LV function, mild aortic root dilation, sm pericardial effusion <1cm tele: sinus Microbiology 12/24/18 08:48 Blood - Peripheral Venous Blood Culture - Final NO GROWTH AFTER 5 DAYS INCUBATION 12/24/18 08:48 Blood - Peripheral Venous Blood Culture - Final NO GROWTH AFTER 5 DAYS INCUBATION 12/24/18 05:30 Urine For Antigen Detection Legionella Antigen - Final 12/24/18 05:30 Urine For Antigen Detection Streptococcus pneumoniae Antigen (M - Final 12/24/18 11:10 Urine - Urine Clean Catch Urine Culture - Final NO GROWTH OBTAINED Active Medications Acetaminophen (Tylenol -) 325 mg PO Q6H PRN PRN Reason: PAIN LEVEL 6-10 Last Admin: 12/31/18 16:39 Dose: 325 mg Amlodipine Besylate (Norvasc -) [address] [facility] Last Admin: 01/02/19 12:12 Dose: 5 mg Aspirin (Asa -) [address] [facility] Last Admin: 01/02/19 12:11 Dose: 81 mg Atorvastatin Calcium (Lipitor -) [address] [facility] Last Admin: 01/01/19 21:45 Dose: 20 mg Calcium Carbonate/Cholecalciferol (Os-Tra 500+D -) [address] [facility] Last Admin: 01/02/19 12:11 Dose: 1 tab Clonidine (Catapres -) 0.[address] [facility] Last Admin: 01/02/19 12:11 Dose: 0.2 mg Docusate Sodium (Colace -) [address] [facility] Last Admin: 01/02/19 12:12 Dose: 100 mg Furosemide (Lasix -) 40 mg PO BID@0600,1400 [facility] Last Admin: 01/02/19 13:50 Dose: 40 mg Heparin Sodium (Porcine) (Heparin -) 5,[address] [facility] Last Admin: 01/02/19 13:49 Dose: 5,000 unit Insulin Aspart (Novolog Mix 70/30 Vial) 30 units SQ BID@0700,2200 [facility] Last Admin: 01/02/19 06:13 Dose: 30 units Insulin Aspart (Novolog Vial Sliding Scale -) [address] [facility]; Protocol Last Admin: 01/02/19 16:37 Dose: 2 units Lactobacillus Acidophilus (Bacid -) [address] [facility] Last Admin: 01/02/19 12:11 Dose: 1 tab Magnesium Hydroxide (Milk Of Magnesia -) 30 ml PO DAILY PRN PRN Reason: CONSTIPATION Metoclopramide HCl (Reglan -) [address] [facility] Last Admin: 01/02/19 16:39 Dose: Not Given Nystatin (Mycostatin Cream -) [address] [facility] Last Admin: 01/02/19 12:21 Dose: 1 applic Polyethylene Glycol (Miralax (For Daily Use) -) [address] [facility] Last Admin: 01/02/19 13:49 Dose: 17 grams Senna (Senna -) [address] [facility] Last Admin: 01/01/19 21:46 Dose: 2 tab Silver Sulfadiazine (Silvadene -) [address] [facility] Last Admin: 01/02/19 12:21 Dose: 1 applic Sodium Chloride ([place] Nasal [place] -) 2 spray NS TID PRN PRN Reason: NASAL CONGESTION ASS/PLAN # new onset HF acute on chronic diastolic HF hypoxemic resp failure due to large bilat effusions Cardiomegaly on CXR/ CT - ECHO done - EF 60%, nl LV/RV function IV lasix to PO remains in negative balance monitor renal function and lytes, Cr has remained stable > 30 lbs weight loss appreciate Cardio and pulmonary consults nuclear stress today -- negative # DM ADA diet continue Insulin # Hypoxemic respiratory failure resolved RA @ 98% # HTN continue home meds if Bp permits # chronic pain syndrome continue out patient meds # 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 # non healing wound to Stump scheduled for wound clinic as out patient silvadene to open wound / change daily Problem List - Problems (1) Bilateral pleural effusion Code(s): J90 - PLEURAL EFFUSION, NOT ELSEWHERE CLASSIFIED (2) Hypoxemia requiring supplemental oxygen Code(s): R09.02 - HYPOXEMIA; Z99.81 - DEPENDENCE ON SUPPLEMENTAL OXYGEN (3) Amputation of right lower extremity below knee Code(s): Z89.511 - ACQUIRED ABSENCE OF RIGHT LEG BELOW KNEE (4) Anxiety Code(s): F41.9 - ANXIETY DISORDER, UNSPECIFIED (5) Chronic pain Code(s): G89.29 - OTHER CHRONIC PAIN (6) Diabetes mellitus Code(s): E11.9 - TYPE 2 DIABETES MELLITUS WITHOUT COMPLICATIONS (7) HLD (hyperlipidemia) Code(s): E78.5 - HYPERLIPIDEMIA, UNSPECIFIED (8) HTN (hypertension) Code(s): I10 - ESSENTIAL (PRIMARY) HYPERTENSION (9) Hepatitis C Code(s): B19.20 - UNSPECIFIED VIRAL HEPATITIS C WITHOUT HEPATIC COMA (10) Opioid dependence on agonist therapy Code(s): F11.20 - OPIOID DEPENDENCE, UNCOMPLICATED (11) PTSD (post-traumatic stress disorder) Code(s): F43.10 - POST-TRAUMATIC STRESS DISORDER, UNSPECIFIED (12) Peripheral neuropathy Code(s): G62.9 - POLYNEUROPATHY, UNSPECIFIED Qualifiers:
[2019-01-02] MEDS: ATORVASTATIN CA 20 MG TABLET (FP) PO SCH (21:52)
[2019-01-02] MEDS: SENNOSIDES 8.6MG TABLET (FP) PO SCH (21:53)
[2019-01-03] MEDS: oxyCODONE HCL 5 MG TABLET PO PRN ×2 (02:21→11:56)
[2019-01-03] MEDS: FUROSEMIDE 40 MG TABLET (FP) PO SCH ×2 (05:57→14:05)
[2019-01-03] MEDS: HEPARIN NA (PORCINE) 5,000 UNITS/ML 1ML VIAL SQ SCH ×2 (05:57→14:05)
[2019-01-03] MEDS: POLYETHYLENE GLYCOL 3350 119 GM BTL PO SCH ×2 (05:58→14:05)
[2019-01-03] MEDS: INSULIN SLIDING SCALE (NOVOLOG) 1 VIAL SQ SCH ×3 (06:00→16:00)
[2019-01-03] MEDS: METOCLOPRAMIDE HCL 10 MG TABLET (FP) PO SCH ×3 (06:00→16:00)
[2019-01-03] MEDS: INSULIN (NOVOLOG MIX 70/30) 100 UNITS/ML MDV SQ SCH (06:00)
[2019-01-03 06:12] LABS: BASO % 0.4 % (0-2.0); EOS % 3.1 % (0-4.5); HEMATOCRIT 35.3 % (35.4-49); HEMOGLOBIN 11.8 GM/dL (11.7-16.9); MCH 27.2 pg (25.7-33.7); MCHC 33.5 g/dl (32.0-35.9); MEAN CELL VOLUME 81.4 fl (80-96); MEAN PLT VOLUME 8.9 fl (7.5-11.1); MONO % 8.4 % (3.8-10.2); NEUT % 59.1 % (42.8-82.8); PLATELET COUNT 184 K/MM3 (134-434); RBC 4.34 M/mm3 (4.00-5.60); RDW 15.3 % (11.9-15.9); WHITE BLOOD COUNT 8.6 K/mm3 (4.0-10.0)
[2019-01-03 06:34] LABS: BLOOD UREA NITROGEN 24.8 mg/dL (7-18); CALCIUM 8.4 mg/dL (8.5-10.1); CREATININE 1.1 mg/dL (0.55-1.3); POTASSIUM 3.8 mmol/L (3.5-5.1)
[2019-01-03] MEDS: ALPRAZolam 1 MG TABLET PO PRN ×2 (08:50→15:35)
[2019-01-03] MEDS: LACTOBACILLUS ACIDOPHILUS 1 TABLET PO SCH (09:58)
[2019-01-03] MEDS: ASPIRIN 81 MG CHEWABLE TABLETS PO SCH (09:58)
[2019-01-03] MEDS: cloNIDine HCL 0.1 MG TABLET PO SCH (09:58)
[2019-01-03] MEDS: DOCUSATE SODIUM 100 MG CAPSULE (FP) PO SCH (09:58)
[2019-01-03] MEDS: CALCIUM 500MG/VIT-D 200 UNITS COMBO TABLET (FP) PO SCH (09:59)
[2019-01-03] MEDS: amLODIPine BESYLATE 5 MG TABLET (FP) PO SCH (09:59)
[2019-01-03] MEDS: NYSTATIN 100,000 UNIT/GM TOPICAL CREAM 15 GM TUBE TP SCH (09:59)
[2019-01-03] MEDS: SILVER SULFADIAZINE 1% TOP CREAM 400 GM JAR TP SCH (10:00)
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
[2019-01-03 16:13] VITALS: BP 147/75; PULSE 63; TEMP 98.7
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
== END 2019-01-03 16:10 | disposition home or self-care (01) | DRG 133 ==
LOC: JER 07:17 → JERBED 10:45 → JICU 14:32 → J2W 12-30 22:16
PROVIDERS: ADMIT Family Medicine; ATTEND Family Medicine
DX: J96.01 Acute respiratory failure with hypoxia (principal); E66.01 Morbid (severe) obesity due to excess calories; Z68.41 Body mass index [BMI] 40.0-44.9, adult; Z79.4 Long term (current) use of insulin; E78.5 Hyperlipidemia, unspecified; B19.20 Unspecified viral hepatitis C without hepatic coma; E87.70 Fluid overload, unspecified; Z89.511 Acquired absence of right leg below knee; T87.89 Other complications of amputation stump; J90 Pleural effusion, not elsewhere classified; E11.649 Type 2 diabetes mellitus with hypoglycemia without coma; I50.33 Acute on chronic diastolic (congestive) heart failure; R07.9 Chest pain, unspecified; G62.9 Polyneuropathy, unspecified; M86.9 Osteomyelitis, unspecified; I11.0 Hypertensive heart disease with heart failure
CPT/HCPCS: 36415; 36600; 71045-TC-FY; 71275-TC; 76705-TC; 78452-TC; 80048; 80053; 81003; 82550; 82803; 82962; 83605; 83690; 83735; 83880; 84100; 84484; 85025; 85027; 85610; 85730; 86850; 86900; 86901; 87040; 87086; 87899; 93017; 93306-TC; 93308; 93925-TC; 93970-TC; 97161-GP; 99285-25; A9502; J0735; J1644; J2785

== ENCOUNTER 2019-01-22 20:19 | Inpatient (IN) | payer OTHER ==
[2019-01-22] MEDS ORDERED: FUROSEMIDE 40 MG/4 ML INJECTABLE VIAL IVPUSH ONE (21:27)
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
[2019-01-22 21:37] LABS: BASO % 0.6 % (0-2.0); EOS % 4.7 % (0-4.5); HEMATOCRIT 32.5 % (35.4-49); HEMOGLOBIN 10.3 GM/dL (11.7-16.9); LYMPH % 21.6 % (8-40); MCH 25.8 pg (25.7-33.7); MCHC 31.6 g/dl (32.0-35.9); MEAN CELL VOLUME 81.8 fl (80-96); MEAN PLT VOLUME 9.1 fl (7.5-11.1); MONO % 6.8 % (3.8-10.2); NEUT % 66.3 % (42.8-82.8); PLATELET COUNT 192 K/MM3 (134-434); RBC 3.98 M/mm3 (4.00-5.60); RDW 16.1 % (11.9-15.9); WHITE BLOOD COUNT 6.7 K/mm3 (4.0-10.0)
[2019-01-22] MEDS ORDERED: FUROSEMIDE 40 MG/4 ML INJECTABLE VIAL ONE (21:45)
[2019-01-22 21:49] LABS: INR 1.26 (0.83-1.09); PROTHROMBIN TIME (PATIENT) 14.9 SEC (9.7-13.0)
[2019-01-22 21:51] LABS: ACTIVATED PTT 34.4 SECONDS (25.2-36.5)
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
[2019-01-22 22:13] LABS: ALBUMIN 3.1 g/dl (3.4-5.0); ALK PHOS 97 U/L (45-117); ANION GAP 7 MMOL/L (8-16); BILIRUBIN,TOTAL 0.6 mg/dL (0.2-1); BLOOD UREA NITROGEN 20.9 mg/dL (7-18); CALCIUM 8.6 mg/dL (8.5-10.1); CHLORIDE 103 mmol/L (98-107); CO2 29 mmol/L (21-32); CREATININE 1.2 mg/dL (0.55-1.3); GLUCOSE,RANDOM 103 mg/dL (74-106); POTASSIUM 3.9 mmol/L (3.5-5.1); SGOT/AST 39 U/L (15-37); SGPT/ALT 32 U/L (13-61); SODIUM 139 mmol/L (136-145); TOT PROT 6.8 g/dl (6.4-8.2)
[2019-01-22 22:52] LABS: PH,URINE 5.5 (5.0-8.0); URINE APPEARANCE CLEAR; URINE BILIRUBIN NEGATIVE (NEGATIVE); URINE COLOR YELLOW; URINE GLUCOSE (UA) NEGATIVE (NEGATIVE); URINE KETONE NEGATIVE (NEGATIVE); URINE LEUK ESTERASE NEGATIVE (NEGATIVE); URINE NITRITE NEGATIVE (NEGATIVE); URINE PROTEIN NEGATIVE (NEGATIVE); URINE UROBILINOGEN 0.2 mg/dL (0.2-1.0)
[2019-01-23] MEDS ORDERED: oxyCODONE HCL 5 MG TABLET PO PRN (00:51)
[2019-01-23] MEDS ORDERED: LORazepam 2 MG/ML SDV VIAL ONE (00:53)
[2019-01-23] MEDS ORDERED: MAGNESIUM HYDROX 2400MG/30ML ORAL SUSPENSION 30 ML CUP PO PRN (00:56)
[2019-01-23] MEDS ORDERED: ACETAMINOPHEN 325 MG TABLET (FP) PO PRN (00:56)
[2019-01-23] MEDS ORDERED: SODIUM CHLORIDE NASAL SPRAY 44 ML BOTTLE NS PRN (00:56)
[2019-01-23] MEDS ORDERED: ALPRAZolam 2 MG TABLET PO PRN (00:56)
[2019-01-23] MEDS ORDERED: oxyCODONE HCL 5 MG TABLET PO ONE (05:15)
[2019-01-23] MEDS: ALPRAZolam 1 MG TABLET PO PRN ×3 (05:32→22:03)
[2019-01-23] MEDS: FUROSEMIDE 40 MG/4 ML INJECTABLE VIAL IVPUSH SCH ×2 (05:33→14:26)
[2019-01-23] MEDS: INSULIN (NOVOLOG MIX 70/30) 100 UNITS/ML MDV SQ SCH ×2 (07:00→21:48)
[2019-01-23 08:40] LABS: HEMATOCRIT 30.8 % (35.4-49); HEMOGLOBIN 10.2 GM/dL (11.7-16.9); MCH 26.7 pg (25.7-33.7); MEAN CELL VOLUME 80.9 fl (80-96); MEAN PLT VOLUME 8.8 fl (7.5-11.1); PLATELET COUNT 170 K/MM3 (134-434); RBC 3.81 M/mm3 (4.00-5.60); RDW 16.3 % (11.9-15.9)
[2019-01-23 09:06] LABS: BLOOD UREA NITROGEN 18.7 mg/dL (7-18); CALCIUM 8.3 mg/dL (8.5-10.1); CREATININE 1.1 mg/dL (0.55-1.3); MAGNESIUM 2.2 mg/dL (1.8-2.4); POTASSIUM 3.8 mmol/L (3.5-5.1)
[2019-01-23] MEDS: oxyCODONE HCL 5 MG TABLET PO PRN ×3 (09:21→21:39)
--- NOTE | 2019-01-23 09:41 | CON.CARD ---
Consult Consult Specialty:: Cardiology Referred by:: Dr. Kraft Reason for Consultation:: SOB, edema - History of Present Illness Chief Complaint: LE edema History of Present Illness: 53M w/ DM, chronic diastolic CHF, recently admitted 12/2018 with acute on chronic diastolic CHF (negative nuclear stress test on that admission) now presents with worsened SOB, LLE edema. Feeling better after IV Lasix. Denies CP, palps, syncope, fever, chills, cough. ECG: NSR, 70bpm, 1st degree AV block. NSST. Previous echo in Dec showed a small/trivial pericardial effusion. - History Source History Provided By: Patient, Medical Record - Past Medical History Cardio/Vascular: Yes: CHF, HTN Pulmonary: No: Asthma, Bronchitis, Cancer, COPD, O2 Dependent, Pneumonia, Previously Intubated, Pulmonary Embolus, Pulmonary Fibrosis, Sleep Apnea, Other Gastrointestinal: No: Ascites, Cancer, Constipation, Crohn's Disease, Diverticulitis, Diverticulosis, Esophageal Varices, Gastritis, GERD, GI Bleed, Hemorrhoids, Hiatal Hernia, Inflamatory Bowel Disease, Irritable Bowel Disease, Pancreatitis, Peptic Ulcer Disease, Ulcerative Colitis, Other Hepatobiliary: No: Cirrhosis, Cholelithiasis, Cholecystitis, Choledocholithiasis , Hepatitis A, Hepatitis B, Hepatitis C, Other Renal/: No: Renal Failure, Renal Inusuff, BPH, Cancer, Hematuria, Hemodialysis , Neurogenic Bladder, Renal Calculi, UTI, Other Infectious Disease: Yes: MRSA Musculoskeletal: Yes: Chronic low back pain, Osteoarthritis Endocrine: Yes: Diabetes Mellitus - Past Surgical History Past Surgical History: Yes: Amputation - Alcohol/Substance Use Hx Alcohol Use: No - Smoking History Smoking history: Never smoked Have you smoked in the past 12 months: No - Social History ADL: Support Services History of Recent Travel: No Home Medications - Allergies Allergies/Adverse Reactions: Allergies Allergy/AdvReac Type Severity Reaction Status Date / Time No Known Allergies Allergy Verified 12/24/18 07:52 - Home Medications Home Medications: Ambulatory Orders Amlodipine Besylate 5 mg PO DAILY 12/26/15 Aspirin [ASA -] 81 mg PO DAILY 12/26/15 Atorvastatin Ca [Lipitor] 20 mg PO HS 12/26/15 Docusate Sodium [Colace -] 100 mg PO BID #60 tab 08/21/16 Insulin Aspart Prot/Insuln Asp [Novolog Mix 70-30 Vial] 60 units SQ BID Oxycodone HCl 30 mg PO Q3H PRN MDD 180 10/20/17 Alprazolam [Xanax] 2 mg PO Q6H PRN #10 tablet MDD 8 10/22/17 Calcium 500Mg/Vit-D 200 Units [Os-Tra 500+D -] 1 tab PO BID tab 10/22/17 Lactobacillus Acidophilus [Bacid -] 1 tab PO DAILY tab 10/22/17 Metoclopramide HCl [Reglan -] 10 mg PO TIDAC tablet 10/22/17 cloNIDine HCL [Catapres -] 0.2 mg PO BID tablet 07/04/18 Polyethylene Glycol 3350 [Miralax 119 gm Btl -] 17 gm PO DAILY bottle 08/04/18 Acetaminophen 325 mg PO Q6H PRN 08/19/18 Magnesium Hydroxide [Milk of Magnesia] 30 ml PO DAILY PRN 08/19/18 Nystatin 1 applic TP BID 08/19/18 Furosemide [Lasix -] 40 mg PO BID@0600,1400 #60 tablet 01/03/19 Insulin Sliding Scale [Novolog Vial Sliding Scale -] 1 vial SQ TIDAC units 04/23 Sennosides [Senna -] 2 tab PO HS tablet 01/03/19 Silver Sulfadiazine 1% Top Cr [Silvadene -] 1 applic TP DAILY jar 01/03/19 Sodium Chloride Nasal [place] [[place] Nasal [place] -] 2 spray NS TID PRN spray 01/03/19 Family Medical History Family History: Unremarkable Review of Systems Findings/Remarks: see HPI - Review of Systems Constitutional: reports: No Symptoms Eyes: reports: No Symptoms HENT: reports: No Symptoms Neck: reports: No Symptoms Cardiovascular: reports: Shortness of Breath Respiratory: reports: Exercise Intolerance Gastrointestinal: denies: No Symptoms, Abdominal Pain, Bloating, Constipation, Diarrhea, Dysphagia, Indigestion, Melena, Nausea, Rectal Bleeding, Vomiting, Vomiting Blood, Other Genitourinary: denies: No Symptoms, Burning, Discharge, Dysuria, Flank Pain, Frequency, Hematuria, Incontinence, Lesions, Menses, Pain, Testicular Mass, Testicular Pain, Testicular Swelling, Urgency, Vaginal Bleeding, Other Breasts: denies: No Symptoms Reported, See HPI, Breast Implants, Discharge from Nipple, Lumps, Pain, Skin Changes, Other Musculoskeletal: denies: No Symptoms, Back Pain, Crepitus, Decreased ROM, Extremity Pain, Joint Pain, Joint Swelling, Muscle Pain, Muscle Cramps, Muscle Weakness, Other Integumentary: denies: No Symptoms, Blister, Bruising, Change in Color, Eczema, Erythema, Incision, Lesions, Lump, Pallor, Pruritis, Rash, Wound, Other Neurological: denies: No Symptoms, Change in LOC, Change in Speech, Confusion, Dizziness, Headache, Incoordination, Numbness, Parasthesia, Pre-Existing Deficit , Seizure, Syncope, Tremors, Unsteady Gait, Weakness, Other Endocrine: denies: No Symptoms, Excessive Sweating, Flushing, Increased Hunger, Increased Thirst, Intolerance to Cold, Intolerance to Heat, Unexplained Weight Gain, Unexplained Weight Loss, Other Hematology/Lymphatic: denies: No Symptoms, Easily Bruised, Excessive Bleeding, Swollen Glands, Other Psychiatric: denies: No Symptoms, Altered Sleep Pattern, Anxiety, Depression, Hallucinations, Panic, Paranoia, Suicidal, Other - Risk Factors Known Risk Factors: Yes: Diabetes Mellitus, Hypertension Vital Signs: Vital Signs Temperature 98.1 F 01/23/19 04:59 Pulse Rate 74 01/23/19 04:59 Respiratory Rate 18 01/23/19 04:59 Blood Pressure 152/76 01/23/19 04:59 O2 Sat by Pulse Oximetry (%) 98 01/23/19 05:35 Constitutional: Yes: No Distress, Calm Eyes: Yes: Conjunctiva Clear Respiratory: Yes: CTA Bilaterally Gastrointestinal: Yes: Soft, Abdomen, Obese Cardiovascular: Yes: Regular Rate and Rhythm JVD: No Carotid Bruit: No Heart Sounds: Yes: S1, S2 (rrr, no m/r/g) Edema: Yes Edema: LLE: 2+ Neurological: Yes: Alert, Oriented - Other Data Labs, Other Data: CBC, BMP 01/23/19 07:30 01/23/19 07:30 INR, PTT INR 1.26 (0.83-1.09) H 01/22/19 21:10 Troponin, BNP 01/22/19 01/22/19 21:10 21:10 Troponin I < 0.02 B-Natriuretic Peptide 1710.2 H Troponin, BNP 01/22/19 01/22/19 21:10 21:10 Troponin I < 0.02 B-Natriuretic Peptide 1710.2 H Echo: Report Reviewed Imaging - Results X-ray: Image Reviewed EKG: Image Reviewed Assessment/Plan IMP: 1. Mild acute on chronic diastolic CHF 2. DM 3. Pericardial effusion 4. Mildly dilated ascending aorta. REC: 1. Agree w/ IV Lasix, daily weights and BMP to monitor renal rxn 2. Can repeat echo to f/u on pericardial effusion. 3. Consider switching Amlodipine (which may contribute to LE edema) to Toprol XL which would benefit his diastolic CHF and reduce aortic shear stress. 4. LE venous duplex to be repeated Thank you
[2019-01-23] MEDS: amLODIPine BESYLATE 5 MG TABLET (FP) PO SCH (09:42)
[2019-01-23] MEDS: DOCUSATE SODIUM 100 MG CAPSULE (FP) PO SCH ×2 (09:42→21:48)
[2019-01-23] MEDS: cloNIDine HCL 0.1 MG TABLET PO SCH ×2 (09:42→21:48)
[2019-01-23] MEDS: POLYETHYLENE GLYCOL 3350 119 GM BTL PO SCH (09:42)
[2019-01-23] MEDS: ASPIRIN 81 MG CHEWABLE TABLETS PO SCH (09:43)
[2019-01-23] MEDS ORDERED: FUROSEMIDE 40 MG/4 ML INJECTABLE VIAL IVPUSH SCH (10:00)
[2019-01-23] MEDS: SILVER SULFADIAZINE 1% TOP CREAM 400 GM JAR TP SCH (11:46)
[2019-01-23] MEDS: CALCIUM 500MG/VIT-D 200 UNITS COMBO TABLET (FP) PO SCH ×2 (11:47→21:48)
--- NOTE | 2019-01-23 14:50 | ECHO ---
Name: MICHELE YORK Exam:Adult Echocardiogram Study Date: 01/23/2019 10:56 AM Age: 53 yrs Reason For Study: chf, f/u pericardial effusion Height: 69 in Weight: 282 lb BSA: 2.4 m2 MMode/2D Measurements & Calculations IVSd: 0.98 cm Ao root diam: 2.9 cm LVIDd: 4.6 cm LA dimension: 3.5 cm LVIDs: 3.0 cm LVPWd: 1.2 cm LVPWs: 1.3 cm EDV(Teich): 96.5 ml ESV(Teich): 35.4 ml LVOT diam: 2.3 cm TAPSE: 1.2 cm Doppler Measurements & Calculations MV E max maggie: 141.9 cm/sec Ao V2 max: 86.9 cm/sec MV A max maggie: 52.8 cm/sec Ao max P.0 mmHg MV E/A: 2.7 MV dec time: 0.14 sec FABIANA(V,D): 5.0 cm2 LV V1 max P.5 mmHg PA V2 max: 91.0 cm/sec LV V1 max: 106.1 cm/sec PA max P.3 mmHg Procedure A complete two-dimensional transthoracic echocardiogram was performed (2D, M-mode, Doppler and color flow Doppler). Technically limited study. Left Ventricle The left ventricle is normal in size. Left ventricular systolic function is normal. Ejection Fraction = 60- 65%. No regional wall motion abnormalities noted. Right Ventricle The right ventricle is normal size. The right ventricular systolic function is normal. Atria The left atrial size is normal. Right atrial size is normal. Mitral Valve The mitral valve is normal in structure and function. There is no mitral regurgitation noted. Tricuspid Valve The tricuspid valve is normal in structure and function. No tricuspid regurgitation. Aortic Valve The aortic valve is normal in structure and function. No aortic regurgitation is present. Pulmonic Valve The pulmonic valve is not well visualized. Trace pulmonic valvular regurgitation. Great Vessels The aortic root is normal size. Pericardium/Pleura Trivial pericardial effusion not hemodynamically significant. Interpretation Summary Technically limited study The left ventricle is normal in size. Left ventricular systolic function is normal. No regional wall motion abnormalities noted. Ejection Fraction = 60-65%. The right ventricular systolic function is normal. The left atrial size is normal. Right atrial size is normal. Trace pulmonic valvular regurgitation. Trivial pericardial effusion not hemodynamically significant When compared to study dated 12/26/18,amount of pericardial effusion appears diminished Rosendo Bhatti MD 01/23/2019 02:50 PM
--- NOTE | 2019-01-23 15:54 | EKG ---
Test Reason : Blood Pressure : / mmHG Vent. Rate : 070 BPM Atrial Rate : 070 BPM P-R Int : 212 ms QRS Dur : 082 ms QT Int : 398 ms P-R-T Axes : 045 067 032 degrees QTc Int : 429 ms SINUS RHYTHM WITH 1ST DEGREE A-V BLOCK LOW VOLTAGE QRS NONSPECIFIC T WAVE ABNORMALITY ABNORMAL ECG WHEN COMPARED WITH ECG OF 24-DEC-2018 07:33, T WAVE VARIATION Confirmed by FERNANDO VAZQUEZ MD ([id number]) on 01/23/2019 3:54:09 PM Referred By: Confirmed By:FERNANDO VAZQUEZ MD
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
[2019-01-23] MEDS ORDERED: PT OWN MED DRAWER 7, Y5N ONE (21:20)
[2019-01-23] MEDS: SENNOSIDES 8.6MG TABLET (FP) PO SCH (21:42)
[2019-01-23] MEDS: ATORVASTATIN CA 20 MG TABLET (FP) PO SCH (21:48)
[2019-01-23] MEDS ORDERED: INSULIN (NOVOLOG) ASPART 100 UNITS/ML 10ML VIAL SQ ONE (22:00)
[2019-01-24] MEDS: oxyCODONE HCL 5 MG TABLET PO PRN ×2 (04:24→17:22)
[2019-01-24] MEDS: FUROSEMIDE 40 MG/4 ML INJECTABLE VIAL IVPUSH SCH ×2 (06:53→14:42)
[2019-01-24] MEDS: INSULIN (NOVOLOG MIX 70/30) 100 UNITS/ML MDV SQ SCH ×3 (06:53→22:16)
[2019-01-24] MEDS: ASPIRIN 81 MG CHEWABLE TABLETS PO SCH (10:22)
[2019-01-24] MEDS: ALPRAZolam 1 MG TABLET PO PRN ×2 (10:22→22:16)
[2019-01-24] MEDS: CALCIUM 500MG/VIT-D 200 UNITS COMBO TABLET (FP) PO SCH ×2 (10:22→22:16)
[2019-01-24] MEDS: amLODIPine BESYLATE 5 MG TABLET (FP) PO SCH (10:23)
[2019-01-24] MEDS: DOCUSATE SODIUM 100 MG CAPSULE (FP) PO SCH ×2 (10:23→22:15)
[2019-01-24] MEDS: cloNIDine HCL 0.1 MG TABLET PO SCH ×2 (10:23→22:15)
[2019-01-24] MEDS: SILVER SULFADIAZINE 1% TOP CREAM 400 GM JAR TP SCH (10:23)
[2019-01-24] MEDS: POLYETHYLENE GLYCOL 3350 119 GM BTL PO SCH (10:24)
--- NOTE | 2019-01-24 10:28 | PN ---
Progress Note (short form) - Note Progress Note: Vital Signs Period Temp Pulse Resp BP Sys/Cross Pulse Ox Last 24 Hr 97.6 F-98.7 F 64-78 18-20 120-154/45-84 97-97 Intake & Output 01/21/19 01/22/19 01/23/19 01/24/19 23:59 23:59 23:59 23:59 Intake Total 650 Output Total 1980 300 Balance -1330 -300 Weight 264 lb 282 lb 3.2 oz 275 lb 12.8 oz neck - jvd heart S1/S2 lungs clear bilat / decreased at base abd soft no tenderness ext right BKA left LE chronic changes /+1 edema CBC, BMP 01/23/19 07:30 01/23/19 07:30 weight loss 13 lbs Microbiology 01/22/19 22:45 Urine - Urine Clean Catch Urine Culture - Final NO GROWTH OBTAINED 01/22/19 21:00 Blood - Peripheral Venous Blood Culture - Preliminary NO GROWTH OBTAINED AFTER 24 HOURS, INCUBATION TO CONTINUE FOR 4 DAYS. 01/22/19 21:00 Blood - Peripheral Venous Blood Culture - Preliminary NO GROWTH OBTAINED AFTER 24 HOURS, INCUBATION TO CONTINUE FOR 4 DAYS. Active Medications Acetaminophen (Tylenol -) 325 mg PO Q6H PRN PRN Reason: PAIN LEVEL 1-5 Alprazolam (Xanax) 2 mg PO Q6H PRN PRN Reason: ANXIETY Last Admin: 01/24/19 10:22 Dose: 2 mg Amlodipine Besylate (Norvasc -) 5 mg PO DAILY [facility] Last Admin: 01/24/19 10:23 Dose: 5 mg Aspirin (Asa -) 81 mg PO DAILY [facility] Last Admin: 01/24/19 10:22 Dose: 81 mg Atorvastatin Calcium (Lipitor -) 20 mg PO HS [facility] Last Admin: 01/23/19 21:48 Dose: 20 mg Calcium Carbonate/Cholecalciferol (Os-Tra 500+D -) 1 tab PO BID [facility] Last Admin: 01/24/19 10:22 Dose: 1 tab Clonidine (Catapres -) 0.2 mg PO BID [facility] Last Admin: 01/24/19 10:23 Dose: 0.2 mg Docusate Sodium (Colace -) 100 mg PO BID [facility] Last Admin: 01/24/19 10:23 Dose: 100 mg Furosemide (Lasix Injection -) 40 mg IVPUSH BID@0600,1400 [facility] Last Admin: 01/24/19 06:53 Dose: 40 mg Insulin Aspart (Novolog Mix 70/30 Vial) 60 units SQ BID@0700,2200 [facility] Last Admin: 01/24/19 07:17 Dose: Not Given Insulin Aspart (Novolog Vial Sliding Scale -) 1 vial SQ TIDAC [facility]; Protocol Magnesium Hydroxide (Milk Of Magnesia -) 30 ml PO DAILY PRN PRN Reason: CONSTIPATION Oxycodone HCl (Roxicodone -) 30 mg PO Q3H PRN PRN Reason: PAIN LEVEL 6-10 Last Admin: 01/24/19 04:24 Dose: 30 mg Polyethylene Glycol (Miralax (For Daily Use) -) 17 gm PO DAILY [facility] Last Admin: 01/24/19 10:24 Dose: Not Given Senna (Senna -) 2 tab PO HS [facility] Last Admin: 01/23/19 21:42 Dose: 2 tab Silver Sulfadiazine (Silvadene -) 1 applic TP DAILY [facility] Last Admin: 01/24/19 10:23 Dose: 1 applic Sodium Chloride ([place] Nasal [place] -) 2 spray NS TID PRN PRN Reason: NASAL CONGESTION # diastolic heart failure ---new onset HF 12/2018 acute on chronic diastolic HF - ECHO 12/2018 - EF 60%, nl LV/RV function -- repeat ordered - nuclear stress - negative - IV lasix to PO remains in negative balance - monitor renal function and lytes, Cr has remained stable ( > 30 lbs weight loss on last hospitalization ) Problem List - Problems (1) Diastolic heart failure Code(s): I50.30 - UNSPECIFIED DIASTOLIC (CONGESTIVE) HEART FAILURE (2) Amputation of right lower extremity below knee Code(s): Z89.511 - ACQUIRED ABSENCE OF RIGHT LEG BELOW KNEE (3) Chronic pain Code(s): G89.29 - OTHER CHRONIC PAIN (4) Diabetes mellitus Code(s): E11.9 - TYPE 2 DIABETES MELLITUS WITHOUT COMPLICATIONS (5) HLD (hyperlipidemia) Code(s): E78.5 - HYPERLIPIDEMIA, UNSPECIFIED (6) HTN (hypertension) Code(s): I10 - ESSENTIAL (PRIMARY) HYPERTENSION (7) Hepatitis C Code(s): B19.20 - UNSPECIFIED VIRAL HEPATITIS C WITHOUT HEPATIC COMA
[2019-01-24 11:34] LABS: BLOOD UREA NITROGEN 19.6 mg/dL (7-18); CALCIUM 8.9 mg/dL (8.5-10.1); POTASSIUM 3.9 mmol/L (3.5-5.1)
--- NOTE | 2019-01-24 13:00 | PN ---
Progress Note (short form) - Note Progress Note: s: sob feels better. no chest pain, palps, dizziness Current Medications Acetaminophen (Tylenol -) 325 mg PO Q6H PRN PRN Reason: PAIN LEVEL 1-5 Alprazolam (Xanax) 2 mg PO Q6H PRN PRN Reason: ANXIETY Last Admin: 01/24/19 10:22 Dose: 2 mg Amlodipine Besylate (Norvasc -) 5 mg PO DAILY [facility] Last Admin: 01/24/19 10:23 Dose: 5 mg Aspirin (Asa -) 81 mg PO DAILY [facility] Last Admin: 01/24/19 10:22 Dose: 81 mg Atorvastatin Calcium (Lipitor -) 20 mg PO HS [facility] Last Admin: 01/23/19 21:48 Dose: 20 mg Calcium Carbonate/Cholecalciferol (Os-Tra 500+D -) 1 tab PO BID [facility] Last Admin: 01/24/19 10:22 Dose: 1 tab Clonidine (Catapres -) 0.2 mg PO BID [facility] Last Admin: 01/24/19 10:23 Dose: 0.2 mg Docusate Sodium (Colace -) 100 mg PO BID [facility] Last Admin: 01/24/19 10:23 Dose: 100 mg Furosemide (Lasix Injection -) 40 mg IVPUSH BID@0600,1400 [facility] Last Admin: 01/24/19 06:53 Dose: 40 mg Insulin Aspart (Novolog Mix 70/30 Vial) 60 units SQ BID@0700,2200 [facility] Last Admin: 01/24/19 07:17 Dose: Not Given Insulin Aspart (Novolog Vial Sliding Scale -) 1 vial SQ TIDAC [facility]; Protocol Magnesium Hydroxide (Milk Of Magnesia -) 30 ml PO DAILY PRN PRN Reason: CONSTIPATION Oxycodone HCl (Roxicodone -) 30 mg PO Q3H PRN PRN Reason: PAIN LEVEL 6-10 Last Admin: 01/24/19 04:24 Dose: 30 mg Polyethylene Glycol (Miralax (For Daily Use) -) 17 gm PO DAILY [facility] Last Admin: 01/24/19 10:24 Dose: Not Given Senna (Senna -) 2 tab PO HS [facility] Last Admin: 01/23/19 21:42 Dose: 2 tab Silver Sulfadiazine (Silvadene -) 1 applic TP DAILY [facility] Last Admin: 01/24/19 10:23 Dose: 1 applic Sodium Chloride ([place] Nasal [place] -) 2 spray NS TID PRN PRN Reason: NASAL CONGESTION Vital Signs Period Temp Pulse Resp BP Sys/Cross Pulse Ox Last 24 Hr 97.6 F-98.7 F 64-78 18-20 120-154/45-84 97-97 Constitutional: Yes: No Distress, Calm Eyes: Yes: Conjunctiva Clear Respiratory: Yes: CTA Bilaterally Gastrointestinal: Yes: Soft, Abdomen, Obese Cardiovascular: Yes: Regular Rate and Rhythm JVD: No Carotid Bruit: No Heart Sounds: Yes: S1, S2 (rrr, no m/r/g) Edema: Yes Edema: LLE: 2+ Neurological: Yes: Alert, Oriented no jaundice, diaphoresis not agitated Echo: Report Reviewed Imaging - Results X-ray: Image Reviewed EKG: Image Reviewed Assessment/Plan IMP: 1. Mild acute on chronic diastolic CHF 2. DM 3. Pericardial effusion 4. Mildly dilated ascending aorta. REC: - repeat echo stable - nl LV/RV function, trivial effusion - cont IV lasix, likely transition to PO tomorrow. was compliant with diet, fluid restriction - will restart PO lasix at higher dose (was on 40 mg PO BID) - monitor Cr, lytes, daily weights
[2019-01-24] MEDS: INSULIN SLIDING SCALE (NOVOLOG) 1 VIAL SQ SCH ×2 (22:11→22:12)
[2019-01-24] MEDS: ATORVASTATIN CA 20 MG TABLET (FP) PO SCH (22:15)
[2019-01-24] MEDS: SENNOSIDES 8.6MG TABLET (FP) PO SCH (22:16)
[2019-01-25] MEDS: oxyCODONE HCL 5 MG TABLET PO PRN ×4 (01:00→20:58)
[2019-01-25] MEDS: INSULIN SLIDING SCALE (NOVOLOG) 1 VIAL SQ SCH ×3 (06:42→17:50)
[2019-01-25] MEDS: FUROSEMIDE 40 MG/4 ML INJECTABLE VIAL IVPUSH SCH ×2 (06:42→13:34)
[2019-01-25 08:05] LABS: BASO % 0.5 % (0-2.0); EOS % 2.3 % (0-4.5); HEMATOCRIT 35.1 % (35.4-49); HEMOGLOBIN 11.5 GM/dL (11.7-16.9); LYMPH % 23.2 % (8-40); MCH 26.3 pg (25.7-33.7); MCHC 32.8 g/dl (32.0-35.9); MEAN CELL VOLUME 80.2 fl (80-96); MEAN PLT VOLUME 8.9 fl (7.5-11.1); MONO % 5.4 % (3.8-10.2); NEUT % 68.6 % (42.8-82.8); PLATELET COUNT 178 K/MM3 (134-434); RBC 4.38 M/mm3 (4.00-5.60); RDW 16.1 % (11.9-15.9); WHITE BLOOD COUNT 6.8 K/mm3 (4.0-10.0)
[2019-01-25 08:26] LABS: CALCIUM 8.9 mg/dL (8.5-10.1); CREATININE 1.1 mg/dL (0.55-1.3); MAGNESIUM 2.4 mg/dL (1.8-2.4)
[2019-01-25] MEDS: INSULIN (NOVOLOG MIX 70/30) 100 UNITS/ML MDV SQ SCH ×2 (09:02→22:57)
[2019-01-25] MEDS: ASPIRIN 81 MG CHEWABLE TABLETS PO SCH (09:03)
[2019-01-25] MEDS: amLODIPine BESYLATE 5 MG TABLET (FP) PO SCH (09:03)
[2019-01-25] MEDS: DOCUSATE SODIUM 100 MG CAPSULE (FP) PO SCH ×2 (09:03→22:53)
[2019-01-25] MEDS: cloNIDine HCL 0.1 MG TABLET PO SCH ×2 (09:04→22:53)
[2019-01-25] MEDS: SILVER SULFADIAZINE 1% TOP CREAM 400 GM JAR TP SCH (09:04)
[2019-01-25] MEDS ORDERED: PT OWN MED DRAWER 7, Y5N ONE ×2 (09:10→22:40)
[2019-01-25] MEDS: CALCIUM 500MG/VIT-D 200 UNITS COMBO TABLET (FP) PO SCH ×2 (09:30→23:06)
[2019-01-25] MEDS: ALPRAZolam 1 MG TABLET PO PRN ×3 (09:30→22:53)
--- NOTE | 2019-01-25 11:13 | PN ---
Progress Note (short form) - Note Progress Note: sitting in bed comfortable no CP / SOB continues with abdominal distension appreciate case discussion with cardiology Vital Signs Period Temp Pulse Resp BP Sys/Cross Pulse Ox Last 24 Hr 98.1 F-98.2 F 57-64 18-20 119-151/43-77 97-99 Intake & Output 01/22/19 01/23/19 01/24/19 01/25/19 23:59 23:59 23:59 23:59 Intake Total 650 1440 Output Total 1980 3500 200 Balance -1330 -2059 -200 Weight 264 lb 282 lb 3.2 oz 275 lb 12.8 oz needs daily weights neck - jvd heart S1/S2 lungs clear bilat / decreased at base abd soft / fluid wave ? /no tenderness ext right BKA left LE chronic changes /+1 edema CBC, BMP 01/25/19 07:20 01/25/19 07:20 CBC, BMP 01/23/19 07:30 01/23/19 07:30 Microbiology 01/22/19 22:45 Urine - Urine Clean Catch Urine Culture - Final NO GROWTH OBTAINED 01/22/19 21:00 Blood - Peripheral Venous Blood Culture - Preliminary NO GROWTH OBTAINED AFTER 24 HOURS, INCUBATION TO CONTINUE FOR 4 DAYS. 01/22/19 21:00 Blood - Peripheral Venous Blood Culture - Preliminary NO GROWTH OBTAINED AFTER 24 HOURS, INCUBATION TO CONTINUE FOR 4 DAYS. Active Medications Acetaminophen (Tylenol -) 325 mg PO Q6H PRN PRN Reason: PAIN LEVEL 1-5 Alprazolam (Xanax) 2 mg PO Q6H PRN PRN Reason: ANXIETY Last Admin: 01/25/19 09:30 Dose: 2 mg Amlodipine Besylate (Norvasc -) 5 mg PO DAILY [facility] Last Admin: 01/25/19 09:03 Dose: 5 mg Aspirin (Asa -) 81 mg PO DAILY [facility] Last Admin: 01/25/19 09:03 Dose: 81 mg Atorvastatin Calcium (Lipitor -) 20 mg PO HS [facility] Last Admin: 01/24/19 22:15 Dose: 20 mg Calcium Carbonate/Cholecalciferol (Os-Tra 500+D -) 1 tab PO BID [facility] Last Admin: 01/25/19 09:30 Dose: 1 tab Clonidine (Catapres -) 0.2 mg PO BID [facility] Last Admin: 01/25/19 09:04 Dose: 0.2 mg Docusate Sodium (Colace -) 100 mg PO BID [facility] Last Admin: 01/25/19 09:03 Dose: 100 mg Furosemide (Lasix Injection -) 40 mg IVPUSH BID@0600,1400 [facility] Last Admin: 01/25/19 06:42 Dose: 40 mg Insulin Aspart (Novolog Mix 70/30 Vial) 60 units SQ BID@0700,2200 [facility] Last Admin: 01/25/19 09:02 Dose: 30 units Insulin Aspart (Novolog Vial Sliding Scale -) 1 vial SQ TIDAC [facility]; Protocol Last Admin: 01/25/19 06:42 Dose: Not Given Magnesium Hydroxide (Milk Of Magnesia -) 30 ml PO DAILY PRN PRN Reason: CONSTIPATION Oxycodone HCl (Roxicodone -) 30 mg PO Q3H PRN PRN Reason: PAIN LEVEL 6-10 Last Admin: 01/25/19 10:51 Dose: 30 mg Polyethylene Glycol (Miralax (For Daily Use) -) 17 gm PO DAILY [facility] Last Admin: 01/24/19 10:24 Dose: Not Given Senna (Senna -) 2 tab PO HS [facility] Last Admin: 01/24/19 22:16 Dose: 2 tab Silver Sulfadiazine (Silvadene -) 1 applic TP DAILY [facility] Last Admin: 01/25/19 09:04 Dose: 1 applic Sodium Chloride ([place] Nasal [place] -) 2 spray NS TID PRN PRN Reason: NASAL CONGESTION Spironolactone (Aldactone -) 50 mg PO DAILY [facility] # diastolic heart failure ---new onset HF 12/2018 acute on chronic diastolic HF - ECHO 12/2018 - EF 60%, nl LV/RV function -- repeat c/w previous - nuclear stress 12/2018 - negative - IV lasix -- - will add aldactone - monitor renal function and lytes, Cr has remained stable ( > 30 lbs weight loss on last hospitalization ) # DM ADA / insulin / sliding scale # HTN # Problem List - Problems (1) Diastolic heart failure Code(s): I50.30 - UNSPECIFIED DIASTOLIC (CONGESTIVE) HEART FAILURE (2) Amputation of right lower extremity below knee Code(s): Z89.511 - ACQUIRED ABSENCE OF RIGHT LEG BELOW KNEE (3) Chronic pain Code(s): G89.29 - OTHER CHRONIC PAIN (4) Diabetes mellitus Code(s): E11.9 - TYPE 2 DIABETES MELLITUS WITHOUT COMPLICATIONS (5) HLD (hyperlipidemia) Code(s): E78.5 - HYPERLIPIDEMIA, UNSPECIFIED (6) HTN (hypertension) Code(s): I10 - ESSENTIAL (PRIMARY) HYPERTENSION (7) Hepatitis C Code(s): B19.20 - UNSPECIFIED VIRAL HEPATITIS C WITHOUT HEPATIC COMA
--- NOTE | 2019-01-25 11:41 | PN ---
Progress Note (short form) - Note Progress Note: s: no chest pain, palps, dizziness, dyspnea Current Medications Acetaminophen (Tylenol -) 325 mg PO Q6H PRN PRN Reason: PAIN LEVEL 1-5 Alprazolam (Xanax) 2 mg PO Q6H PRN PRN Reason: ANXIETY Last Admin: 01/25/19 09:30 Dose: 2 mg Amlodipine Besylate (Norvasc -) 5 mg PO DAILY [facility] Last Admin: 01/25/19 09:03 Dose: 5 mg Aspirin (Asa -) 81 mg PO DAILY [facility] Last Admin: 01/25/19 09:03 Dose: 81 mg Atorvastatin Calcium (Lipitor -) 20 mg PO HS [facility] Last Admin: 01/24/19 22:15 Dose: 20 mg Calcium Carbonate/Cholecalciferol (Os-Tra 500+D -) 1 tab PO BID [facility] Last Admin: 01/25/19 09:30 Dose: 1 tab Clonidine (Catapres -) 0.2 mg PO BID [facility] Last Admin: 01/25/19 09:04 Dose: 0.2 mg Docusate Sodium (Colace -) 100 mg PO BID [facility] Last Admin: 01/25/19 09:03 Dose: 100 mg Furosemide (Lasix Injection -) 40 mg IVPUSH BID@0600,1400 [facility] Last Admin: 01/25/19 06:42 Dose: 40 mg Insulin Aspart (Novolog Mix 70/30 Vial) 60 units SQ BID@0700,2200 [facility] Last Admin: 01/25/19 09:02 Dose: 30 units Insulin Aspart (Novolog Vial Sliding Scale -) 1 vial SQ TIDAC [facility]; Protocol Last Admin: 01/25/19 06:42 Dose: Not Given Magnesium Hydroxide (Milk Of Magnesia -) 30 ml PO DAILY PRN PRN Reason: CONSTIPATION Oxycodone HCl (Roxicodone -) 30 mg PO Q3H PRN PRN Reason: PAIN LEVEL 6-10 Last Admin: 01/25/19 10:51 Dose: 30 mg Polyethylene Glycol (Miralax (For Daily Use) -) 17 gm PO DAILY [facility] Last Admin: 01/24/19 10:24 Dose: Not Given Senna (Senna -) 2 tab PO HS [facility] Last Admin: 01/24/19 22:16 Dose: 2 tab Silver Sulfadiazine (Silvadene -) 1 applic TP DAILY [facility] Last Admin: 10/23/19 09:04 Dose: 1 applic Sodium Chloride ([place] Nasal [place] -) 2 spray NS TID PRN PRN Reason: NASAL CONGESTION Spironolactone (Aldactone -) 50 mg PO DAILY [facility] Vital Signs Period Temp Pulse Resp BP Sys/Cross Pulse Ox Last 24 Hr 98.1 F-98.2 F 57-64 18-20 119-151/43-77 97-99 Constitutional: Yes: No Distress, Calm Eyes: Yes: Conjunctiva Clear Respiratory: Yes: CTA Bilaterally Gastrointestinal: Yes: Soft, Abdomen, Obese Cardiovascular: Yes: Regular Rate and Rhythm JVD: No Carotid Bruit: No Heart Sounds: Yes: S1, S2 (rrr, no m/r/g) Edema: Yes Edema: LLE: 2+ Neurological: Yes: Alert, Oriented no jaundice, diaphoresis not agitated Echo: Report Reviewed Imaging - Results X-ray: Image Reviewed EKG: Image Reviewed Assessment/Plan IMP: 1. Mild acute on chronic diastolic CHF 2. DM 3. Pericardial effusion 4. Mildly dilated ascending aorta. REC: - repeat echo stable - nl LV/RV function, trivial effusion - cont IV lasix, monitor Cr, lytes, daily weights - cont spironolactone
[2019-01-25] MEDS: POLYETHYLENE GLYCOL 3350 119 GM BTL PO SCH (11:48)
[2019-01-25] MEDS: SENNOSIDES 8.6MG TABLET (FP) PO SCH (22:53)
[2019-01-25] MEDS: ATORVASTATIN CA 20 MG TABLET (FP) PO SCH (22:54)
[2019-01-26] MEDS: oxyCODONE HCL 5 MG TABLET PO PRN ×4 (03:03→22:48)
[2019-01-26] MEDS: INSULIN SLIDING SCALE (NOVOLOG) 1 VIAL SQ SCH ×3 (06:20→17:03)
[2019-01-26] MEDS: FUROSEMIDE 40 MG/4 ML INJECTABLE VIAL IVPUSH SCH ×2 (06:37→13:19)
[2019-01-26] MEDS ORDERED: INSULIN (NOVOLOG) ASPART 100 UNITS/ML 10ML VIAL ONE (06:52)
[2019-01-26] MEDS: ALPRAZolam 1 MG TABLET PO PRN ×2 (08:53→20:23)
[2019-01-26] MEDS ORDERED: INSULIN (NOVOLOG MIX 70/30) 100 UNITS/ML MDV SQ ONE ×2 (09:42→09:55)
[2019-01-26] MEDS: INSULIN (NOVOLOG MIX 70/30) 100 UNITS/ML MDV SQ SCH ×3 (09:45→22:56)
[2019-01-26] MEDS: cloNIDine HCL 0.1 MG TABLET PO SCH ×2 (10:58→22:37)
[2019-01-26] MEDS: SPIRONOLACTONE 25 MG TABLET (FP) PO SCH (10:59)
[2019-01-26] MEDS: DOCUSATE SODIUM 100 MG CAPSULE (FP) PO SCH ×2 (10:59→22:37)
[2019-01-26] MEDS: ASPIRIN 81 MG CHEWABLE TABLETS PO SCH (10:59)
[2019-01-26] MEDS: POLYETHYLENE GLYCOL 3350 119 GM BTL PO SCH (10:59)
[2019-01-26] MEDS: amLODIPine BESYLATE 5 MG TABLET (FP) PO SCH (10:59)
[2019-01-26] MEDS: CALCIUM 500MG/VIT-D 200 UNITS COMBO TABLET (FP) PO SCH ×2 (11:00→22:37)
[2019-01-26] MEDS: SILVER SULFADIAZINE 1% TOP CREAM 400 GM JAR TP SCH (11:00)
--- NOTE | 2019-01-26 11:05 | PN ---
Progress Note (short form) - Note Progress Note: sitting in bed comfortable no CP / SOB continues with abdominal distension patient is depressed and anxious and voices will kill himself if he becomes short of breath again May have access to gun ? does have a plan ... will call psych for further evaluation Vital Signs Period Temp Pulse Resp BP Sys/Cross Pulse Ox Last 24 Hr 98.1 F-98.2 F 57-64 18-20 119-151/43-77 97-99 Intake & Output 01/23/19 01/24/19 01/25/19 01/26/19 23:59 23:59 23:59 23:59 Intake Total 650 1440 1820 Output Total 1980 3500 2100 1150 Balance -1330 -2060 -280 -1150 Weight 282 lb 3.2 oz 275 lb 12.8 oz 275 lb 259 lb 2 oz needs daily weights neck - jvd heart S1/S2 lungs clear bilat / decreased at base abd soft / fluid wave ? /no tenderness ext right BKA left LE chronic changes /+1 edema CBC, BMP 01/25/19 07:20 01/25/19 07:20 CBC, BMP 01/25/19 07:20 01/25/19 07:20 Microbiology 01/22/19 22:45 Urine - Urine Clean Catch Urine Culture - Final NO GROWTH OBTAINED 01/22/19 21:00 Blood - Peripheral Venous Blood Culture - Preliminary NO GROWTH OBTAINED AFTER 24 HOURS, INCUBATION TO CONTINUE FOR 4 DAYS. 01/22/19 21:00 Blood - Peripheral Venous Blood Culture - Preliminary NO GROWTH OBTAINED AFTER 24 HOURS, INCUBATION TO CONTINUE FOR 4 DAYS. Active Medications Acetaminophen (Tylenol -) 325 mg PO Q6H PRN PRN Reason: PAIN LEVEL 1-5 Last Admin: 01/25/19 21:00 Dose: 325 mg Alprazolam (Xanax) 2 mg PO Q6H PRN PRN Reason: ANXIETY Last Admin: 01/26/19 08:53 Dose: 2 mg Amlodipine Besylate (Norvasc -) 5 mg PO DAILY [facility] Last Admin: 01/26/19 10:59 Dose: 5 mg Aspirin (Asa -) 81 mg PO DAILY [facility] Last Admin: 01/26/19 10:59 Dose: 81 mg Atorvastatin Calcium (Lipitor -) 20 mg PO HS [facility] Last Admin: 01/25/19 22:54 Dose: 20 mg Calcium Carbonate/Cholecalciferol (Os-Tra 500+D -) 1 tab PO BID [facility] Last Admin: 01/26/19 11:00 Dose: 1 tab Clonidine (Catapres -) 0.2 mg PO BID [facility] Last Admin: 01/26/19 10:58 Dose: 0.2 mg Docusate Sodium (Colace -) 100 mg PO BID [facility] Last Admin: 01/26/19 10:59 Dose: 100 mg Furosemide (Lasix Injection -) 40 mg IVPUSH BID@0600,1400 [facility] Last Admin: 01/26/19 06:37 Dose: 40 mg Insulin Aspart (Novolog Mix 70/30 Vial) 60 units SQ BID@0700,2200 [facility] Last Admin: 01/26/19 09:45 Dose: 30 units Insulin Aspart (Novolog Vial Sliding Scale -) 1 vial SQ TIDAC [facility]; Protocol Last Admin: 01/26/19 06:20 Dose: Not Given Magnesium Hydroxide (Milk Of Magnesia -) 30 ml PO DAILY PRN PRN Reason: CONSTIPATION Oxycodone HCl (Roxicodone -) 30 mg PO Q3H PRN PRN Reason: PAIN LEVEL 6-10 Last Admin: 01/26/19 03:03 Dose: 30 mg Polyethylene Glycol (Miralax (For Daily Use) -) 17 gm PO DAILY [facility] Last Admin: 01/26/19 10:59 Dose: 17 grams Senna (Senna -) 2 tab PO HS [facility] Last Admin: 01/25/19 22:53 Dose: 2 tab Silver Sulfadiazine (Silvadene -) 1 applic TP DAILY [facility] Last Admin: 01/26/19 11:00 Dose: 1 applic Sodium Chloride ([place] Nasal [place] -) 2 spray NS TID PRN PRN Reason: NASAL CONGESTION Spironolactone (Aldactone -) 50 mg PO DAILY [facility] Last Admin: 01/26/19 10:59 Dose: 50 mg # diastolic heart failure ---new onset HF 12/2018 acute on chronic diastolic HF - ECHO 12/2018 - EF 60%, nl LV/RV function -- repeat c/w previous - nuclear stress 12/2018 - negative - IV lasix -- - will add aldactone - monitor renal function and lytes, Cr has remained stable ( > 30 lbs weight loss on last hospitalization ) # DM ADA / insulin / sliding scale # HTN #depression will consult psych have discussed with patient POC extensively and management which will control HF Problem List - Problems (1) Diastolic heart failure Code(s): I50.30 - UNSPECIFIED DIASTOLIC (CONGESTIVE) HEART FAILURE (2) Amputation of right lower extremity below knee Code(s): Z89.511 - ACQUIRED ABSENCE OF RIGHT LEG BELOW KNEE (3) Chronic pain Code(s): G89.29 - OTHER CHRONIC PAIN (4) Diabetes mellitus Code(s): E11.9 - TYPE 2 DIABETES MELLITUS WITHOUT COMPLICATIONS (5) HLD (hyperlipidemia) Code(s): E78.5 - HYPERLIPIDEMIA, UNSPECIFIED (6) HTN (hypertension) Code(s): I10 - ESSENTIAL (PRIMARY) HYPERTENSION (7) Hepatitis C Code(s): B19.20 - UNSPECIFIED VIRAL HEPATITIS C WITHOUT HEPATIC COMA
--- NOTE | 2019-01-26 13:19 | PN ---
Progress Note (short form) - Note Progress Note: s: no chest pain, palps, dizziness, dyspnea Current Medications Generic Name Dose Route Start Last Admin Trade Name Freq PRN Reason Stop Dose Admin Acetaminophen 325 mg 01/23/19 00:56 01/25/19 21:00 Tylenol - PO 325 mg Q6H PRN Administration PAIN LEVEL 1-5 Alprazolam 2 mg 01/23/19 05:23 01/26/19 08:53 Xanax PO 2 mg Q6H PRN Administration ANXIETY Amlodipine Besylate 5 mg 01/23/19 10:00 01/26/19 10:59 Norvasc - PO 5 mg DAILY PRICE Administration Aspirin 81 mg 01/23/19 10:00 01/26/19 10:59 Asa - PO 81 mg DAILY PRICE Administration Atorvastatin Calcium 20 mg 01/23/19 22:00 01/25/19 22:54 Lipitor - PO 20 mg HS PRICE Administration Calcium Carbonate/Cholecalciferol 1 tab 01/23/19 10:00 01/26/19 11:00 Os-Tra 500+D - PO 1 tab BID PRICE Administration Clonidine 0.2 mg 01/23/19 10:00 01/26/19 10:58 Catapres - PO 0.2 mg BID PRICE Administration Docusate Sodium 100 mg 01/23/19 10:00 01/26/19 10:59 Colace - PO 100 mg BID PRICE Administration Furosemide 40 mg 01/23/19 06:00 01/26/19 06:37 Lasix Injection - IVPUSH 40 mg BID@0600,1400 [facility] Administration Insulin Aspart 60 units 01/23/19 07:00 01/26/19 09:45 Novolog Mix 70/30 Vial SQ 30 units BID@0700,2200 [facility] Administration Insulin Aspart 1 vial 01/24/19 21:43 01/26/19 11:55 Novolog Vial Sliding Scale - SQ Not Given TIDAC [facility] Protocol Magnesium Hydroxide 30 ml 01/23/19 00:56 Milk Of Magnesia - PO DAILY PRN CONSTIPATION Oxycodone HCl 30 mg 01/23/19 00:56 01/26/19 11:26 Roxicodone - PO 30 mg Q3H PRN Administration PAIN LEVEL 6-10 Polyethylene Glycol 17 gm 01/23/19 10:00 01/26/19 10:59 Miralax (For Daily Use) - PO 17 grams DAILY [facility] Administration Senna 2 tab 01/23/19 22:00 01/25/19 22:53 Senna - PO 2 tab HS PRICE Administration Silver Sulfadiazine 1 applic 01/23/19 10:00 01/26/19 11:00 Silvadene - TP 1 applic DAILY [facility] Administration Sodium Chloride 2 spray 01/23/19 00:56 [place] - NS TID PRN NASAL CONGESTION Spironolactone 50 mg 01/26/19 10:00 01/26/19 10:59 Aldactone - PO 50 mg DAILY [facility] Administration Vital Signs Period Temp Pulse Resp BP Sys/Cross Pulse Ox Last 24 Hr 97.5 F-98.2 F 52-63 20-20 122-148/66-82 99-99 Constitutional: Yes: No Distress, Calm Eyes: Yes: Conjunctiva Clear Respiratory: Yes: CTA Bilaterally Gastrointestinal: Yes: Soft, Abdomen, Obese Cardiovascular: Yes: Regular Rate and Rhythm JVD: No Carotid Bruit: No Heart Sounds: Yes: S1, S2 (rrr, no m/r/g) Edema: Yes Edema: LLE: 1+ Neurological: Yes: Alert, Oriented no jaundice, diaphoresis not agitated CBC, BMP 01/25/19 07:20 01/25/19 07:20 Echo: Report Reviewed Imaging - Results X-ray: Image Reviewed EKG: Image Reviewed Assessment/Plan IMP: 1. Mild acute on chronic diastolic CHF 2. DM 3. Pericardial effusion 4. Mildly dilated ascending aorta. REC: - repeat echo stable - nl LV/RV function, trivial effusion - cont IV lasix, monitor Cr, lytes, daily weights. vol status improving. - cont spironolactone
--- NOTE | 2019-01-26 14:50 | CON.PSY ---
Psychiatry Consult Chief Complaint: I feel stressed about my Medical problems, I am not checking out any time .. i feel stressed, in bcame back after 2 weeks. Feel anxious and feraful. I dont want to kill myself. Symptoms: reports: Depressed Mood, Anxiety - Previous Psychiatric Treatment Outpatient: None Inpatient: None - Previous Substance Abuse Treatment Outpatient: None Inpatient: None - Current Medications Current Medications: Active Medications Acetaminophen (Tylenol -) 325 mg PO Q6H PRN PRN Reason: PAIN LEVEL 1-5 Last Admin: 01/25/19 21:00 Dose: 325 mg Alprazolam (Xanax) 2 mg PO Q6H PRN PRN Reason: ANXIETY Last Admin: 01/26/19 08:53 Dose: 2 mg Amlodipine Besylate (Norvasc -) 5 mg PO DAILY [facility] Last Admin: 01/26/19 10:59 Dose: 5 mg Aspirin (Asa -) 81 mg PO DAILY [facility] Last Admin: 01/26/19 10:59 Dose: 81 mg Atorvastatin Calcium (Lipitor -) 20 mg PO HS [facility] Last Admin: 01/25/19 22:54 Dose: 20 mg Calcium Carbonate/Cholecalciferol (Os-Tra 500+D -) 1 tab PO BID [facility] Last Admin: 01/26/19 11:00 Dose: 1 tab Clonidine (Catapres -) 0.2 mg PO BID [facility] Last Admin: 01/26/19 10:58 Dose: 0.2 mg Docusate Sodium (Colace -) 100 mg PO BID [facility] Last Admin: 01/26/19 10:59 Dose: 100 mg Furosemide (Lasix Injection -) 40 mg IVPUSH BID@0600,1400 [facility] Last Admin: 01/26/19 13:19 Dose: 40 mg Insulin Aspart (Novolog Mix 70/30 Vial) 60 units SQ BID@0700,2200 [facility] Last Admin: 01/26/19 09:45 Dose: 30 units Insulin Aspart (Novolog Vial Sliding Scale -) 1 vial SQ TIDAC [facility]; Protocol Last Admin: 01/26/19 11:55 Dose: Not Given Magnesium Hydroxide (Milk Of Magnesia -) 30 ml PO DAILY PRN PRN Reason: CONSTIPATION Oxycodone HCl (Roxicodone -) 30 mg PO Q3H PRN PRN Reason: PAIN LEVEL 6-10 Last Admin: 10/24/19 11:26 Dose: 30 mg Polyethylene Glycol (Miralax (For Daily Use) -) 17 gm PO DAILY [facility] Last Admin: 01/26/19 10:59 Dose: 17 grams Senna (Senna -) 2 tab PO HS [facility] Last Admin: 01/25/19 22:53 Dose: 2 tab Silver Sulfadiazine (Silvadene -) 1 applic TP DAILY [facility] Last Admin: 01/26/19 11:00 Dose: 1 applic Sodium Chloride ([place] -) 2 spray NS TID PRN PRN Reason: NASAL CONGESTION Spironolactone (Aldactone -) 50 mg PO DAILY [facility] Last Admin: 01/26/19 10:59 Dose: 50 mg - Allergies Allergies: Allergies Allergy/AdvReac Type Severity Reaction Status Date / Time No Known Allergies Allergy Verified 12/24/18 07:52 - Current Living Status Usual Living Arrangement: Alone - Current Mental Status Evaluation Appearance: Well Groomed Attitude: Cooperative - Affect Affect: Constrictive Appropriateness: Appropriate to Content - Mood Mood: Anxious - Speech/Language Expressive: Coherent - Psychomotor Activity Psychomotor Activity: Slowed - Thought Process Thought Process: Intact - Thought Content Hallucinations: Absent Delusions: Absent - Self Perception Self Perception: No Impairment - Cognition Attention: Alert Orientation: Time Memory, Immediate Recall: Intact Memory, Short Term: 3/3 Memory, Remote with Promptin/3 - Concentration Serial Sevens Intact: Yes Simple Calculations Intact: Yes - Abstraction Proverb Interpretation: Intact - Insight Insight: Intact - Impulse Control Impulse Control: Good Control - Suicidal Ideation Suicidal Ideation: No - Homicidal Ideation Homicidal Ideation: No Assessment/Plan 1) Lexapro 10 mg po od for anxiety and depression.
[2019-01-26] MEDS: SENNOSIDES 8.6MG TABLET (FP) PO SCH (22:37)
[2019-01-26] MEDS: ATORVASTATIN CA 20 MG TABLET (FP) PO SCH (22:37)
[2019-01-27] MEDS: ALPRAZolam 1 MG TABLET PO PRN ×2 (03:57→13:46)
[2019-01-27] MEDS: INSULIN SLIDING SCALE (NOVOLOG) 1 VIAL SQ SCH ×3 (06:12→17:26)
[2019-01-27] MEDS: FUROSEMIDE 40 MG/4 ML INJECTABLE VIAL IVPUSH SCH ×2 (06:50→13:29)
[2019-01-27] MEDS: INSULIN (NOVOLOG MIX 70/30) 100 UNITS/ML MDV SQ SCH ×2 (08:24→21:55)
[2019-01-27 08:44] LABS: BASO % 0.5 % (0-2.0); HEMOGLOBIN 12.4 GM/dL (11.7-16.9); LYMPH % 24.4 % (8-40); MCH 26.1 pg (25.7-33.7); MCHC 32.6 g/dl (32.0-35.9); MEAN PLT VOLUME 8.9 fl (7.5-11.1); NEUT % 67.1 % (42.8-82.8); PLATELET COUNT 161 K/MM3 (134-434); RBC 4.75 M/mm3 (4.00-5.60); RDW 15.9 % (11.9-15.9); WHITE BLOOD COUNT 7.7 K/mm3 (4.0-10.0)
[2019-01-27 09:16] LABS: BLOOD UREA NITROGEN 24.8 mg/dL (7-18); CALCIUM 8.7 mg/dL (8.5-10.1); CREATININE 1.2 mg/dL (0.55-1.3); MAGNESIUM 2.3 mg/dL (1.8-2.4); POTASSIUM 3.9 mmol/L (3.5-5.1)
[2019-01-27] MEDS: oxyCODONE HCL 5 MG TABLET PO PRN ×2 (10:52→21:44)
[2019-01-27] MEDS: DOCUSATE SODIUM 100 MG CAPSULE (FP) PO SCH ×2 (10:54→21:43)
[2019-01-27] MEDS: cloNIDine HCL 0.1 MG TABLET PO SCH ×2 (10:54→21:43)
[2019-01-27] MEDS: ESCITALOPRAM OXALATE 10 MG TABLET (FP) PO SCH (10:54)
[2019-01-27] MEDS: ASPIRIN 81 MG CHEWABLE TABLETS PO SCH (10:55)
[2019-01-27] MEDS: POLYETHYLENE GLYCOL 3350 119 GM BTL PO SCH (10:55)
[2019-01-27] MEDS: SPIRONOLACTONE 25 MG TABLET (FP) PO SCH (10:55)
[2019-01-27] MEDS: amLODIPine BESYLATE 5 MG TABLET (FP) PO SCH (10:55)
--- NOTE | 2019-01-27 11:26 | PN ---
Progress Note, Physician Chief Complaint: sitting up No CP or SOB No palps. History of Present Illness: weight down - Current Medication List Current Medications: Active Medications Acetaminophen (Tylenol -) 325 mg PO Q6H PRN PRN Reason: PAIN LEVEL 1-5 Last Admin: 01/25/19 21:00 Dose: 325 mg Alprazolam (Xanax) 2 mg PO Q6H PRN PRN Reason: ANXIETY Last Admin: 01/27/19 03:57 Dose: 2 mg Amlodipine Besylate (Norvasc -) 5 mg PO DAILY [facility] Last Admin: 01/27/19 10:55 Dose: 5 mg Aspirin (Asa -) 81 mg PO DAILY [facility] Last Admin: 01/27/19 10:55 Dose: 81 mg Atorvastatin Calcium (Lipitor -) 20 mg PO HS [facility] Last Admin: 01/26/19 22:37 Dose: 20 mg Calcium Carbonate/Cholecalciferol (Os-Tra 500+D -) 1 tab PO BID [facility] Last Admin: 01/26/19 22:37 Dose: 1 tab Clonidine (Catapres -) 0.2 mg PO BID [facility] Last Admin: 01/27/19 10:54 Dose: 0.2 mg Docusate Sodium (Colace -) 100 mg PO BID [facility] Last Admin: 01/27/19 10:54 Dose: 100 mg Escitalopram Oxalate (Lexapro -) 10 mg PO DAILY [facility] Last Admin: 01/27/19 10:54 Dose: 10 mg Furosemide (Lasix Injection -) 40 mg IVPUSH BID@0600,1400 [facility] Last Admin: 01/27/19 06:50 Dose: 40 mg Insulin Aspart (Novolog Mix 70/30 Vial) 60 units SQ BID@0700,2200 [facility] Last Admin: 01/27/19 08:24 Dose: Not Given Insulin Aspart (Novolog Vial Sliding Scale -) 1 vial SQ TIDAC [facility]; Protocol Last Admin: 01/27/19 06:12 Dose: Not Given Magnesium Hydroxide (Milk Of Magnesia -) 30 ml PO DAILY PRN PRN Reason: CONSTIPATION Last Admin: 01/27/19 10:57 Dose: 30 ml Oxycodone HCl (Roxicodone -) 30 mg PO Q3H PRN PRN Reason: PAIN LEVEL 6-10 Last Admin: 01/27/19 10:52 Dose: 30 mg Polyethylene Glycol (Miralax (For Daily Use) -) 17 gm PO DAILY [facility] Last Admin: 01/27/19 10:55 Dose: 17 grams Senna (Senna -) 2 tab PO HS [facility] Last Admin: 01/26/19 22:37 Dose: 2 tab Silver Sulfadiazine (Silvadene -) 1 applic TP DAILY [facility] Last Admin: 01/26/19 11:00 Dose: 1 applic Sodium Chloride ([place] -) 2 spray NS TID PRN PRN Reason: NASAL CONGESTION Spironolactone (Aldactone -) 50 mg PO DAILY [facility] Last Admin: 01/27/19 10:55 Dose: 50 mg - Objective Vital Signs: Vital Signs Temperature 97.6 F 01/27/19 06:00 Pulse Rate 62 01/27/19 06:00 Respiratory Rate 18 01/27/19 06:00 Blood Pressure 135/67 01/27/19 06:00 O2 Sat by Pulse Oximetry (%) 99 01/26/19 09:00 Constitutional: Yes: No Distress, Calm Eyes: Yes: Conjunctiva Clear Cardiovascular: Yes: Regular Rate and Rhythm Respiratory: Yes: CTA Bilaterally (no wheezing or rales.) Gastrointestinal: Yes: Soft, Abdomen, Obese Edema: Yes Edema: LLE: 1+, RLE: 1+ Neurological: Yes: Alert, Oriented Labs: CBC, BMP 01/27/19 07:45 01/27/19 07:45 INR, PTT INR 1.26 (0.83-1.09) H 01/22/19 21:10 Assessment/Plan Assessment/Plan IMP: 1. Mild acute on chronic diastolic CHF 2. DM 3. Pericardial effusion 4. Mildly dilated ascending aorta. REC: - repeat echo stable - nl LV/RV function, trivial effusion - Plan to switch to PO Lasix: 40mg PO BID AM 01/27 - cont spironolactone -If remains stable, tentative plan to d/c home later on Wednesday with close outpatient cardiac follow up with our group and with PMD for labs (K+/ renal fxn )
[2019-01-27] MEDS: SILVER SULFADIAZINE 1% TOP CREAM 400 GM JAR TP SCH (11:58)
[2019-01-27] MEDS: CALCIUM 500MG/VIT-D 200 UNITS COMBO TABLET (FP) PO SCH ×2 (11:59→21:43)
[2019-01-27] MEDS ORDERED: INSULIN (NOVOLOG) ASPART 100 UNITS/ML 10ML VIAL ONE (18:54)
[2019-01-27] MEDS ORDERED: PT OWN MED DRAWER 7, Y5N ONE (18:55)
[2019-01-27] MEDS: ATORVASTATIN CA 20 MG TABLET (FP) PO SCH (21:44)
[2019-01-27] MEDS: SENNOSIDES 8.6MG TABLET (FP) PO SCH (21:44)
--- NOTE | 2019-01-27 22:55 | PN ---
Progress Note (short form) - Note Progress Note: sitting in bed comfortable no CP / SOB psych consult reviewed and appreciated Cardiology follow up appreciated Vital Signs Period Temp Pulse Resp BP Sys/Cross Pulse Ox Last 24 Hr 97.6 F-98.6 F 53-65 18-18 109-147/56-70 99 Intake & Output 01/24/19 01/25/19 01/26/19 01/27/19 23:59 23:59 23:59 23:59 Intake Total 1440 1820 Output Total 3500 2100 3750 2600 Balance -2060 -280 -3750 -2600 Weight 275 lb 12.8 oz 275 lb 259 lb 2 oz needs daily weights neck - jvd heart S1/S2 lungs clear bilat / decreased at base abd soft / fluid wave ? /no tenderness ext right BKA left LE chronic changes /+1 edema CBC, BMP 01/27/19 07:45 01/27/19 07:45 CBC, BMP 01/25/19 07:20 01/25/19 07:20 CBC, BMP 01/25/19 07:20 01/25/19 07:20 Microbiology 01/22/19 22:45 Urine - Urine Clean Catch Urine Culture - Final NO GROWTH OBTAINED 01/22/19 21:00 Blood - Peripheral Venous Blood Culture - Preliminary NO GROWTH OBTAINED AFTER 24 HOURS, INCUBATION TO CONTINUE FOR 4 DAYS. 01/22/19 21:00 Blood - Peripheral Venous Blood Culture - Preliminary NO GROWTH OBTAINED AFTER 24 HOURS, INCUBATION TO CONTINUE FOR 4 DAYS. Active Medications Acetaminophen (Tylenol -) 325 mg PO Q6H PRN PRN Reason: PAIN LEVEL 1-5 Last Admin: 01/25/19 21:00 Dose: 325 mg Alprazolam (Xanax) 2 mg PO Q6H PRN PRN Reason: ANXIETY Last Admin: 01/27/19 13:46 Dose: 2 mg Amlodipine Besylate (Norvasc -) 5 mg PO DAILY [facility] Last Admin: 01/27/19 10:55 Dose: 5 mg Aspirin (Asa -) 81 mg PO DAILY [facility] Last Admin: 01/27/19 10:55 Dose: 81 mg Atorvastatin Calcium (Lipitor -) 20 mg PO HS [facility] Last Admin: 01/27/19 21:44 Dose: 20 mg Calcium Carbonate/Cholecalciferol (Os-Tra 500+D -) 1 tab PO BID [facility] Last Admin: 01/27/19 21:43 Dose: 1 tab Clonidine (Catapres -) 0.2 mg PO BID [facility] Last Admin: 01/27/19 21:43 Dose: 0.2 mg Docusate Sodium (Colace -) 100 mg PO BID [facility] Last Admin: 01/27/19 21:43 Dose: 100 mg Escitalopram Oxalate (Lexapro -) 10 mg PO DAILY [facility] Last Admin: 01/27/19 10:54 Dose: 10 mg Furosemide (Lasix Injection -) 40 mg IVPUSH BID@0600,1400 [facility] Last Admin: 01/27/19 13:29 Dose: 40 mg Insulin Aspart (Novolog Mix 70/30 Vial) 60 units SQ BID@0700,2200 [facility] Last Admin: 01/27/19 21:55 Dose: 25 units Insulin Aspart (Novolog Vial Sliding Scale -) 1 vial SQ TIDAC [facility]; Protocol Last Admin: 01/27/19 17:26 Dose: 6 units Magnesium Hydroxide (Milk Of Magnesia -) 30 ml PO DAILY PRN PRN Reason: CONSTIPATION Last Admin: 01/27/19 10:57 Dose: 30 ml Oxycodone HCl (Roxicodone -) 30 mg PO Q3H PRN PRN Reason: PAIN LEVEL 6-10 Last Admin: 01/27/19 21:44 Dose: 30 mg Polyethylene Glycol (Miralax (For Daily Use) -) 17 gm PO DAILY [facility] Last Admin: 01/27/19 10:55 Dose: 17 grams Senna (Senna -) 2 tab PO HS [facility] Last Admin: 01/27/19 21:44 Dose: 2 tab Silver Sulfadiazine (Silvadene -) 1 applic TP DAILY [facility] Last Admin: 01/27/19 11:58 Dose: 1 applic Sodium Chloride ([place] Nasal [place] -) 2 spray NS TID PRN PRN Reason: NASAL CONGESTION Spironolactone (Aldactone -) 50 mg PO DAILY [facility] Last Admin: 01/27/19 10:55 Dose: 50 mg # diastolic heart failure ---new onset HF 12/2018 acute on chronic diastolic HF - ECHO 12/2018 - EF 60%, nl LV/RV function -- repeat c/w previous - nuclear stress 12/2018 - negative - IV lasix -- - aldactone added - monitor renal function and lytes, Cr has remained stable ( > 30 lbs weight loss on last hospitalization ) # DM ADA / insulin / sliding scale # HTN #depression psych consulted and statrted on lexapro patient admits very anxious regarding meduical condition have discussed with patient POC extensively and management which will control HF Problem List - Problems (1) Diastolic heart failure Code(s): I50.30 - UNSPECIFIED DIASTOLIC (CONGESTIVE) HEART FAILURE (2) Amputation of right lower extremity below knee Code(s): Z89.511 - ACQUIRED ABSENCE OF RIGHT LEG BELOW KNEE (3) Chronic pain Code(s): G89.29 - OTHER CHRONIC PAIN (4) Diabetes mellitus Code(s): E11.9 - TYPE 2 DIABETES MELLITUS WITHOUT COMPLICATIONS (5) HLD (hyperlipidemia) Code(s): E78.5 - HYPERLIPIDEMIA, UNSPECIFIED (6) HTN (hypertension) Code(s): I10 - ESSENTIAL (PRIMARY) HYPERTENSION (7) Hepatitis C Code(s): B19.20 - UNSPECIFIED VIRAL HEPATITIS C WITHOUT HEPATIC COMA
[2019-01-28] MEDS: ALPRAZolam 1 MG TABLET PO PRN ×3 (00:07→21:47)
[2019-01-28] MEDS: INSULIN SLIDING SCALE (NOVOLOG) 1 VIAL SQ SCH ×3 (06:01→18:06)
[2019-01-28] MEDS: FUROSEMIDE 40 MG/4 ML INJECTABLE VIAL IVPUSH SCH (06:16)
[2019-01-28] MEDS ORDERED: INSULIN (NOVOLOG) ASPART 100 UNITS/ML 10ML VIAL ONE (06:18)
[2019-01-28] MEDS: oxyCODONE HCL 5 MG TABLET PO PRN ×2 (06:19→10:11)
[2019-01-28 06:58] LABS: BASO % 0.6 % (0-2.0); HEMATOCRIT 39.3 % (35.4-49); HEMOGLOBIN 12.7 GM/dL (11.7-16.9); LYMPH % 29.7 % (8-40); MCH 25.9 pg (25.7-33.7); MCHC 32.4 g/dl (32.0-35.9); MEAN PLT VOLUME 8.7 fl (7.5-11.1); MONO % 5.4 % (3.8-10.2); NEUT % 61.3 % (42.8-82.8); PLATELET COUNT 180 K/MM3 (134-434); RBC 4.92 M/mm3 (4.00-5.60); RDW 16.4 % (11.9-15.9); WHITE BLOOD COUNT 9.2 K/mm3 (4.0-10.0)
[2019-01-28 08:12] LABS: BLOOD UREA NITROGEN 28.7 mg/dL (7-18); CALCIUM 9.1 mg/dL (8.5-10.1); CREATININE 1.2 mg/dL (0.55-1.3); POTASSIUM 4.2 mmol/L (3.5-5.1)
[2019-01-28] MEDS: INSULIN (NOVOLOG MIX 70/30) 100 UNITS/ML MDV SQ SCH ×2 (09:01→21:47)
--- NOTE | 2019-01-28 09:37 | PN ---
Progress Note, Physician Chief Complaint: sob, swelling History of Present Illness: ongoing good diuretic response to iv lasix no sob, orthopnea. swelling/bloating resolved no cp, palpitations - Current Medication List Current Medications: Active Medications Acetaminophen (Tylenol -) 325 mg PO Q6H PRN PRN Reason: PAIN LEVEL 1-5 Last Admin: 01/25/19 21:00 Dose: 325 mg Alprazolam (Xanax) 2 mg PO Q6H PRN PRN Reason: ANXIETY Last Admin: 01/28/19 00:07 Dose: 2 mg Amlodipine Besylate (Norvasc -) 5 mg PO DAILY [facility] Last Admin: 01/27/19 10:55 Dose: 5 mg Aspirin (Asa -) 81 mg PO DAILY [facility] Last Admin: 01/27/19 10:55 Dose: 81 mg Atorvastatin Calcium (Lipitor -) 20 mg PO HS [facility] Last Admin: 01/27/19 21:44 Dose: 20 mg Calcium Carbonate/Cholecalciferol (Os-Tra 500+D -) 1 tab PO BID [facility] Last Admin: 01/27/19 21:43 Dose: 1 tab Clonidine (Catapres -) 0.2 mg PO BID [facility] Last Admin: 01/27/19 21:43 Dose: 0.2 mg Docusate Sodium (Colace -) 100 mg PO BID [facility] Last Admin: 01/27/19 21:43 Dose: 100 mg Escitalopram Oxalate (Lexapro -) 10 mg PO DAILY [facility] Last Admin: 01/27/19 10:54 Dose: 10 mg Furosemide (Lasix Injection -) 40 mg IVPUSH BID@0600,1400 [facility] Last Admin: 01/28/19 06:16 Dose: 40 mg Insulin Aspart (Novolog Mix 70/30 Vial) 60 units SQ BID@0700,2200 [facility] Last Admin: 01/28/19 09:01 Dose: 30 units Insulin Aspart (Novolog Vial Sliding Scale -) 1 vial SQ TIDAC [facility]; Protocol Last Admin: 01/28/19 06:01 Dose: Not Given Magnesium Hydroxide (Milk Of Magnesia -) 30 ml PO DAILY PRN PRN Reason: CONSTIPATION Last Admin: 01/27/19 10:57 Dose: 30 ml Oxycodone HCl (Roxicodone -) 30 mg PO Q3H PRN PRN Reason: PAIN LEVEL 6-10 Last Admin: 01/28/19 06:19 Dose: 30 mg Polyethylene Glycol (Miralax (For Daily Use) -) 17 gm PO DAILY [facility] Last Admin: 01/27/19 10:55 Dose: 17 grams Senna (Senna -) 2 tab PO HS [facility] Last Admin: 01/27/19 21:44 Dose: 2 tab Silver Sulfadiazine (Silvadene -) 1 applic TP DAILY [facility] Last Admin: 01/27/19 11:58 Dose: 1 applic Sodium Chloride ([place] Nasal [place] -) 2 spray NS TID PRN PRN Reason: NASAL CONGESTION Spironolactone (Aldactone -) 50 mg PO DAILY [facility] Last Admin: 01/27/19 10:55 Dose: 50 mg - Objective Vital Signs: Vital Signs Temperature 98.1 F 01/28/19 05:00 Pulse Rate 64 01/28/19 05:00 Respiratory Rate 18 01/28/19 05:00 Blood Pressure 157/79 01/28/19 05:00 O2 Sat by Pulse Oximetry (%) 99 01/27/19 21:00 Constitutional: Yes: Well Nourished, No Distress, Calm Cardiovascular: Yes: Regular Rate and Rhythm, S1, S2. No: Gallop, Murmur Respiratory: Yes: Regular, CTA Bilaterally. No: Accessory Muscle Use, Rales, Wheezes Extremities: No: Cold Edema: No (s/p RLE amputation) Neurological: Yes: Alert, Oriented Psychiatric: No: Agitated Labs: CBC, BMP 01/28/19 06:22 01/28/19 06:22 INR, PTT INR 1.26 (0.83-1.09) H 01/22/19 21:10 Assessment/Plan Echo 01/21: nl LV/RV, nl valve fxn. trivial peric effusion IMP: 1. Mild acute on chronic diastolic CHF 2. DM 3. Pericardial effusion 4. Mildly dilated ascending aorta. 5. ? retrocardiac infiltrate on cxr 6. HTN REC: - received lasix 40 iv bid here. cxr no chf. sob and swelling resolved. doubt lift scale wts accurate here (275-->247 in 4 days). labs stable = suspect he is euvolemic. - pt states he began retaining fluid again as outpt within couple of weeks from last HF discharge. was sent home on lasix 40 po bid, decreased to [address] capone for renal concerns (per pt, was preventative, no actual BEV noted). rec 40 po bid at home with q2 weeks BMP to monitor renal function for first 8 weeks. - cont spironolactone 50 qd as doing - BP target < 130/80. often at goals here. same meds for now. - states he had sleep apnea screening test when here last visit--rec formal overnight PSG as outpatient given hi risk neck habitus, and this may be a reversible cause of recurrent HF admits - ? w/u and/or treatment for possible retrocardiac infiltrate--defer to PMD
[2019-01-28] MEDS: SPIRONOLACTONE 25 MG TABLET (FP) PO SCH (10:04)
[2019-01-28] MEDS: DOCUSATE SODIUM 100 MG CAPSULE (FP) PO SCH ×2 (10:04→21:48)
[2019-01-28] MEDS: amLODIPine BESYLATE 5 MG TABLET (FP) PO SCH (10:04)
[2019-01-28] MEDS: ASPIRIN 81 MG CHEWABLE TABLETS PO SCH (10:04)
[2019-01-28] MEDS: cloNIDine HCL 0.1 MG TABLET PO SCH ×2 (10:04→21:47)
[2019-01-28] MEDS: ESCITALOPRAM OXALATE 10 MG TABLET (FP) PO SCH (10:05)
[2019-01-28] MEDS: CALCIUM 500MG/VIT-D 200 UNITS COMBO TABLET (FP) PO SCH ×2 (10:05→21:47)
[2019-01-28] MEDS: POLYETHYLENE GLYCOL 3350 119 GM BTL PO SCH (10:05)
[2019-01-28] MEDS: SILVER SULFADIAZINE 1% TOP CREAM 400 GM JAR TP SCH (10:06)
[2019-01-28] MEDS: FUROSEMIDE 40 MG TABLET (FP) PO SCH (15:12)
[2019-01-28] MEDS ORDERED: INSULIN (NOVOLOG MIX 70/30) 100 UNITS/ML MDV SQ ONE (18:50)
[2019-01-28] MEDS ORDERED: PT OWN MED DRAWER 7, Y5N ONE (21:19)
[2019-01-28] MEDS: ATORVASTATIN CA 20 MG TABLET (FP) PO SCH (21:48)
[2019-01-28] MEDS: SENNOSIDES 8.6MG TABLET (FP) PO SCH (21:48)
--- NOTE | 2019-01-28 22:33 | PN ---
Progress Note (short form) - Note Progress Note: sitting in bed comfortable no CP / SOB Cardiology follow up appreciated Vital Signs Period Temp Pulse Resp BP Sys/Cross Pulse Ox Last 24 Hr 98 F-98.9 F 61-67 18-20 127-157/53-80 98 Intake & Output 01/25/19 01/26/19 01/27/19 01/28/19 23:59 23:59 23:59 23:59 Intake Total 1820 Output Total 2100 3750 3250 1900 Balance -280 -3750 -3250 -1900 Weight 275 lb 259 lb 2 oz 247 lb 9.6 oz neck - jvd heart S1/S2 lungs clear bilat / decreased at base abd soft /no tenderness ext right BKA left LE chronic changes /+1 edema CBC, BMP 01/28/19 06:22 01/28/19 06:22 CBC, BMP 01/27/19 07:45 01/27/19 07:45 CBC, BMP 01/25/19 07:20 01/25/19 07:20 CBC, BMP 01/25/19 07:20 01/25/19 07:20 Microbiology 01/22/19 21:00 Blood - Peripheral Venous Blood Culture - Final NO GROWTH AFTER 5 DAYS INCUBATION 01/22/19 21:00 Blood - Peripheral Venous Blood Culture - Final NO GROWTH AFTER 5 DAYS INCUBATION 01/22/19 22:45 Urine - Urine Clean Catch Urine Culture - Final NO GROWTH OBTAINED Active Medications Acetaminophen (Tylenol -) 325 mg PO Q6H PRN PRN Reason: PAIN LEVEL 1-5 Last Admin: 01/25/19 21:00 Dose: 325 mg Alprazolam (Xanax) 2 mg PO Q6H PRN PRN Reason: ANXIETY Last Admin: 01/28/19 21:47 Dose: 2 mg Amlodipine Besylate (Norvasc -) 5 mg PO DAILY [facility] Last Admin: 01/28/19 10:04 Dose: 5 mg Aspirin (Asa -) 81 mg PO DAILY [facility] Last Admin: 01/28/19 10:04 Dose: 81 mg Atorvastatin Calcium (Lipitor -) 20 mg PO HS [facility] Last Admin: 01/28/19 21:48 Dose: 20 mg Calcium Carbonate/Cholecalciferol (Os-Tra 500+D -) 1 tab PO BID [facility] Last Admin: 01/28/19 21:47 Dose: 1 tab Clonidine (Catapres -) 0.2 mg PO BID [facility] Last Admin: 01/28/19 21:47 Dose: 0.2 mg Docusate Sodium (Colace -) 100 mg PO BID [facility] Last Admin: 01/28/19 21:48 Dose: 100 mg Escitalopram Oxalate (Lexapro -) 10 mg PO DAILY [facility] Last Admin: 01/28/19 10:05 Dose: 10 mg Furosemide (Lasix -) 40 mg PO BID@0600,1400 [facility] Last Admin: 01/28/19 15:12 Dose: 40 mg Insulin Aspart (Novolog Mix 70/30 Vial) 60 units SQ BID@0700,2200 [facility] Last Admin: 01/28/19 21:47 Dose: 45 units Insulin Aspart (Novolog Vial Sliding Scale -) 1 vial SQ TIDAC [facility]; Protocol Last Admin: 01/28/19 18:06 Dose: Not Given Magnesium Hydroxide (Milk Of Magnesia -) 30 ml PO DAILY PRN PRN Reason: CONSTIPATION Last Admin: 01/27/19 10:57 Dose: 30 ml Oxycodone HCl (Roxicodone -) 30 mg PO Q3H PRN PRN Reason: PAIN LEVEL 6-10 Last Admin: 01/28/19 10:11 Dose: 30 mg Polyethylene Glycol (Miralax (For Daily Use) -) 17 gm PO DAILY [facility] Last Admin: 01/28/19 10:05 Dose: 17 grams Senna (Senna -) 2 tab PO HS [facility] Last Admin: 01/28/19 21:48 Dose: 2 tab Silver Sulfadiazine (Silvadene -) 1 applic TP DAILY [facility] Last Admin: 01/28/19 10:06 Dose: 1 applic Sodium Chloride ([place] Nasal [place] -) 2 spray NS TID PRN PRN Reason: NASAL CONGESTION Spironolactone (Aldactone -) 50 mg PO DAILY [facility] Last Admin: 01/28/19 10:04 Dose: 50 mg # diastolic heart failure ---new onset HF 12/2018 acute on chronic diastolic HF - ECHO 12/2018 - EF 60%, nl LV/RV function -- repeat c/w previous - nuclear stress 12/2018 - negative - IV lasix -- changed to PO - aldactone added - monitor renal function and lytes, Cr has remained stable ( > 30 lbs weight loss on last hospitalization ) # DM ADA / insulin / sliding scale # HTN #depression psych consulted and started on lexapro patient admits very anxious regarding medical condition have discussed with patient POC extensively and management which will control HF Problem List - Problems (1) Diastolic heart failure Code(s): I50.30 - UNSPECIFIED DIASTOLIC (CONGESTIVE) HEART FAILURE (2) Amputation of right lower extremity below knee Code(s): Z89.511 - ACQUIRED ABSENCE OF RIGHT LEG BELOW KNEE (3) Chronic pain Code(s): G89.29 - OTHER CHRONIC PAIN (4) Diabetes mellitus Code(s): E11.9 - TYPE 2 DIABETES MELLITUS WITHOUT COMPLICATIONS (5) HLD (hyperlipidemia) Code(s): E78.5 - HYPERLIPIDEMIA, UNSPECIFIED (6) HTN (hypertension) Code(s): I10 - ESSENTIAL (PRIMARY) HYPERTENSION (7) Hepatitis C Code(s): B19.20 - UNSPECIFIED VIRAL HEPATITIS C WITHOUT HEPATIC COMA
[2019-01-29] MEDS: oxyCODONE HCL 5 MG TABLET PO PRN ×4 (03:17→22:19)
[2019-01-29] MEDS: FUROSEMIDE 40 MG TABLET (FP) PO SCH ×2 (06:38→14:58)
[2019-01-29] MEDS: INSULIN (NOVOLOG MIX 70/30) 100 UNITS/ML MDV SQ SCH ×3 (06:39→21:58)
[2019-01-29] MEDS: INSULIN SLIDING SCALE (NOVOLOG) 1 VIAL SQ SCH ×3 (06:39→17:27)
[2019-01-29] MEDS ORDERED: INSULIN (NOVOLOG MIX 70/30) 100 UNITS/ML MDV SQ ONE ×2 (07:40→08:30)
[2019-01-29] MEDS ORDERED: INSULIN (LEVEMIR) 100 UNITS/ML UNITS SQ ONE (07:40)
[2019-01-29] MEDS ORDERED: INSULIN (NOVOLOG) ASPART 100 UNITS/ML 10ML VIAL ONE (07:40)
[2019-01-29 08:01] LABS: BASO % 0.6 % (0-2.0); EOS % 2.1 % (0-4.5); HEMOGLOBIN 12.8 GM/dL (11.7-16.9); LYMPH % 22.3 % (8-40); MCH 25.8 pg (25.7-33.7); MCHC 32.1 g/dl (32.0-35.9); MEAN CELL VOLUME 80.4 fl (80-96); MEAN PLT VOLUME 8.9 fl (7.5-11.1); MONO % 5.2 % (3.8-10.2); NEUT % 69.8 % (42.8-82.8); PLATELET COUNT 181 K/MM3 (134-434); RBC 4.97 M/mm3 (4.00-5.60); RDW 16.5 % (11.9-15.9); WHITE BLOOD COUNT 11.7 K/mm3 (4.0-10.0)
[2019-01-29 08:07] LABS: BLOOD UREA NITROGEN 31.4 mg/dL (7-18); CALCIUM 9.2 mg/dL (8.5-10.1); CREATININE 1.3 mg/dL (0.55-1.3); POTASSIUM 4.1 mmol/L (3.5-5.1)
[2019-01-29] MEDS: DOCUSATE SODIUM 100 MG CAPSULE (FP) PO SCH ×2 (09:18→21:57)
[2019-01-29] MEDS: amLODIPine BESYLATE 5 MG TABLET (FP) PO SCH (09:18)
[2019-01-29] MEDS: ESCITALOPRAM OXALATE 10 MG TABLET (FP) PO SCH (09:18)
[2019-01-29] MEDS: cloNIDine HCL 0.1 MG TABLET PO SCH ×2 (09:19→21:57)
[2019-01-29] MEDS: ASPIRIN 81 MG CHEWABLE TABLETS PO SCH (09:19)
[2019-01-29] MEDS: SPIRONOLACTONE 25 MG TABLET (FP) PO SCH (09:19)
[2019-01-29] MEDS ORDERED: PT OWN MED DRAWER 7, Y5N ONE (09:27)
[2019-01-29] MEDS: ALPRAZolam 1 MG TABLET PO PRN ×2 (09:37→22:19)
[2019-01-29] MEDS: POLYETHYLENE GLYCOL 3350 119 GM BTL PO SCH (09:38)
[2019-01-29] MEDS: CALCIUM 500MG/VIT-D 200 UNITS COMBO TABLET (FP) PO SCH ×2 (09:38→22:02)
[2019-01-29] MEDS: SILVER SULFADIAZINE 1% TOP CREAM 400 GM JAR TP SCH (17:21)
[2019-01-29] MEDS: SENNOSIDES 8.6MG TABLET (FP) PO SCH (21:56)
[2019-01-29] MEDS: ATORVASTATIN CA 20 MG TABLET (FP) PO SCH (21:57)
[2019-01-30] MEDS: oxyCODONE HCL 5 MG TABLET PO PRN ×3 (04:40→18:05)
[2019-01-30] MEDS: INSULIN SLIDING SCALE (NOVOLOG) 1 VIAL SQ SCH ×3 (06:30→18:06)
[2019-01-30] MEDS: FUROSEMIDE 40 MG TABLET (FP) PO SCH ×2 (06:31→14:57)
[2019-01-30 07:44] LABS: BASO % 0.6 % (0-2.0); EOS % 3.5 % (0-4.5); HEMATOCRIT 40.8 % (35.4-49); HEMOGLOBIN 13.1 GM/dL (11.7-16.9); LYMPH % 32.7 % (8-40); MCH 25.7 pg (25.7-33.7); MEAN CELL VOLUME 80.2 fl (80-96); MEAN PLT VOLUME 9.1 fl (7.5-11.1); NEUT % 56.2 % (42.8-82.8); PLATELET COUNT 160 K/MM3 (134-434); RBC 5.09 M/mm3 (4.00-5.60); RDW 16.7 % (11.9-15.9); WHITE BLOOD COUNT 11.2 K/mm3 (4.0-10.0)
[2019-01-30 08:15] LABS: BLOOD UREA NITROGEN 28.8 mg/dL (7-18); CALCIUM 8.8 mg/dL (8.5-10.1); CREATININE 1.2 mg/dL (0.55-1.3)
[2019-01-30] MEDS ORDERED: PT OWN MED DRAWER 7, Y5N ONE (08:50)
[2019-01-30] MEDS: SPIRONOLACTONE 25 MG TABLET (FP) PO SCH (09:37)
[2019-01-30] MEDS: amLODIPine BESYLATE 5 MG TABLET (FP) PO SCH (09:37)
[2019-01-30] MEDS: cloNIDine HCL 0.1 MG TABLET PO SCH ×2 (09:37→22:03)
[2019-01-30] MEDS: ESCITALOPRAM OXALATE 10 MG TABLET (FP) PO SCH ×2 (09:37→09:54)
[2019-01-30] MEDS: ASPIRIN 81 MG CHEWABLE TABLETS PO SCH (09:38)
[2019-01-30] MEDS: DOCUSATE SODIUM 100 MG CAPSULE (FP) PO SCH ×2 (09:38→22:03)
[2019-01-30] MEDS: CALCIUM 500MG/VIT-D 200 UNITS COMBO TABLET (FP) PO SCH ×2 (09:39→22:05)
[2019-01-30] MEDS: INSULIN (NOVOLOG MIX 70/30) 100 UNITS/ML MDV SQ SCH ×2 (09:40→22:00)
[2019-01-30] MEDS: POLYETHYLENE GLYCOL 3350 119 GM BTL PO SCH (09:44)
[2019-01-30] MEDS: ALPRAZolam 1 MG TABLET PO PRN ×2 (09:44→22:05)
[2019-01-30] MEDS: SILVER SULFADIAZINE 1% TOP CREAM 400 GM JAR TP SCH (09:45)
--- NOTE | 2019-01-30 11:40 | PN ---
Progress Note (short form) - Note Progress Note: sitting in bed comfortable no CP / SOB Cardiology follow up appreciated Vital Signs Period Temp Pulse Resp BP Sys/Cross Pulse Ox Last 24 Hr 97.7 F-98.9 F 54-76 18-20 110-145/57-93 98 Intake & Output 01/27/19 01/28/19 01/29/19 01/30/19 23:59 23:59 23:59 23:59 Intake Total 800 800 520 Output Total 3250 2900 1750 300 Balance -3250 -2100 -950 220 Weight 247 lb 9.6 oz 245 lb 244 lb 9.6 oz neck - jvd heart S1/S2 lungs clear bilat / decreased at base abd soft /no tenderness ext right BKA left LE chronic changes / no edema CBC, BMP 01/30/19 06:48 01/30/19 06:48 CBC, BMP 01/28/19 06:22 01/28/19 06:22 Microbiology 01/22/19 21:00 Blood - Peripheral Venous Blood Culture - Final NO GROWTH AFTER 5 DAYS INCUBATION 01/22/19 21:00 Blood - Peripheral Venous Blood Culture - Final NO GROWTH AFTER 5 DAYS INCUBATION 01/22/19 22:45 Urine - Urine Clean Catch Urine Culture - Final NO GROWTH OBTAINED Active Medications Acetaminophen (Tylenol -) 325 mg PO Q6H PRN PRN Reason: PAIN LEVEL 1-5 Last Admin: 01/25/19 21:00 Dose: 325 mg Alprazolam (Xanax) 2 mg PO Q6H PRN PRN Reason: ANXIETY Last Admin: 01/30/19 09:44 Dose: 2 mg Amlodipine Besylate (Norvasc -) 5 mg PO DAILY [facility] Last Admin: 01/30/19 09:37 Dose: 5 mg Aspirin (Asa -) 81 mg PO DAILY [facility] Last Admin: 01/30/19 09:38 Dose: 81 mg Atorvastatin Calcium (Lipitor -) 20 mg PO HS [facility] Last Admin: 01/29/19 21:57 Dose: 20 mg Calcium Carbonate/Cholecalciferol (Os-Tra 500+D -) 1 tab PO BID [facility] Last Admin: 01/30/19 09:39 Dose: 1 tab Clonidine (Catapres -) 0.2 mg PO BID [facility] Last Admin: 01/30/19 09:37 Dose: 0.2 mg Docusate Sodium (Colace -) 100 mg PO BID [facility] Last Admin: 01/30/19 09:38 Dose: 100 mg Escitalopram Oxalate (Lexapro -) 10 mg PO DAILY [facility] Last Admin: 01/30/19 09:54 Dose: Not Given Furosemide (Lasix -) 40 mg PO BID@0600,1400 [facility] Last Admin: 01/30/19 06:31 Dose: 40 mg Insulin Aspart (Novolog Mix 70/30 Vial) 60 units SQ BID@0700,2200 [facility] Last Admin: 01/30/19 09:40 Dose: 30 units Insulin Aspart (Novolog Vial Sliding Scale -) 1 vial SQ TIDAC [facility]; Protocol Last Admin: 01/30/19 06:30 Dose: Not Given Magnesium Hydroxide (Milk Of Magnesia -) 30 ml PO DAILY PRN PRN Reason: CONSTIPATION Last Admin: 01/27/19 10:57 Dose: 30 ml Oxycodone HCl (Roxicodone -) 30 mg PO Q3H PRN PRN Reason: PAIN LEVEL 6-10 Last Admin: 01/30/19 04:40 Dose: 30 mg Polyethylene Glycol (Miralax (For Daily Use) -) 17 gm PO DAILY [facility] Last Admin: 01/30/19 09:44 Dose: 17 grams Senna (Senna -) 2 tab PO HS [facility] Last Admin: 01/29/19 21:56 Dose: 2 tab Silver Sulfadiazine (Silvadene -) 1 applic TP DAILY [facility] Last Admin: 01/30/19 09:45 Dose: 1 applic Sodium Chloride ([place] Nasal [place] -) 2 spray NS TID PRN PRN Reason: NASAL CONGESTION Spironolactone (Aldactone -) 50 mg PO DAILY [facility] Last Admin: 01/30/19 09:37 Dose: 50 mg # diastolic heart failure ---new onset HF 12/2018 acute on chronic diastolic HF - ECHO 12/2018 - EF 60%, nl LV/RV function -- repeat c/w previous - nuclear stress 12/2018 - negative - IV lasix -- changed to PO --continue daily weights - continue aldactone - monitor renal function and lytes, Cr has remained stable ( > 30 lbs weight loss on last hospitalization ) # DM ADA / insulin / sliding scale has required less insulin - will adjust # HTN #depression psych consulted and started on lexapro patient admits very anxious regarding medical condition have discussed with patient POC extensively and management which will control HF Problem List - Problems (1) Diastolic heart failure Code(s): I50.30 - UNSPECIFIED DIASTOLIC (CONGESTIVE) HEART FAILURE (2) Amputation of right lower extremity below knee Code(s): Z89.511 - ACQUIRED ABSENCE OF RIGHT LEG BELOW KNEE (3) Chronic pain Code(s): G89.29 - OTHER CHRONIC PAIN (4) Diabetes mellitus Code(s): E11.9 - TYPE 2 DIABETES MELLITUS WITHOUT COMPLICATIONS (5) HLD (hyperlipidemia) Code(s): E78.5 - HYPERLIPIDEMIA, UNSPECIFIED (6) HTN (hypertension) Code(s): I10 - ESSENTIAL (PRIMARY) HYPERTENSION (7) Hepatitis C Code(s): B19.20 - UNSPECIFIED VIRAL HEPATITIS C WITHOUT HEPATIC COMA
--- NOTE | 2019-01-30 11:44 | PN ---
Progress Note (short form) - Note Progress Note: sitting in bed comfortable no CP / SOB Cardiology follow up appreciated Vital Signs Period Temp Pulse Resp BP Sys/Cross Pulse Ox Last 24 Hr 97.7 F-98.9 F 54-76 18-20 110-145/57-93 98 neck - jvd heart S1/S2 lungs clear bilat / decreased at base abd soft /no tenderness ext right BKA left LE chronic changes /+1 edema CBC, BMP 01/28/19 06:22 01/28/19 06:22 Microbiology 01/22/19 21:00 Blood - Peripheral Venous Blood Culture - Final NO GROWTH AFTER 5 DAYS INCUBATION 01/22/19 21:00 Blood - Peripheral Venous Blood Culture - Final NO GROWTH AFTER 5 DAYS INCUBATION 01/22/19 22:45 Urine - Urine Clean Catch Urine Culture - Final NO GROWTH OBTAINED Active Medications Acetaminophen (Tylenol -) 325 mg PO Q6H PRN PRN Reason: PAIN LEVEL 1-5 Last Admin: 01/25/19 21:00 Dose: 325 mg Alprazolam (Xanax) 2 mg PO Q6H PRN PRN Reason: ANXIETY Last Admin: 01/28/19 21:47 Dose: 2 mg Amlodipine Besylate (Norvasc -) 5 mg PO DAILY [facility] Last Admin: 01/28/19 10:04 Dose: 5 mg Aspirin (Asa -) 81 mg PO DAILY [facility] Last Admin: 01/28/19 10:04 Dose: 81 mg Atorvastatin Calcium (Lipitor -) 20 mg PO HS [facility] Last Admin: 01/28/19 21:48 Dose: 20 mg Calcium Carbonate/Cholecalciferol (Os-Tra 500+D -) 1 tab PO BID [facility] Last Admin: 01/28/19 21:47 Dose: 1 tab Clonidine (Catapres -) 0.2 mg PO BID [facility] Last Admin: 01/28/19 21:47 Dose: 0.2 mg Docusate Sodium (Colace -) 100 mg PO BID [facility] Last Admin: 01/28/19 21:48 Dose: 100 mg Escitalopram Oxalate (Lexapro -) 10 mg PO DAILY [facility] Last Admin: 01/28/19 10:05 Dose: 10 mg Furosemide (Lasix -) 40 mg PO BID@0600,1400 [facility] Last Admin: 01/28/19 15:12 Dose: 40 mg Insulin Aspart (Novolog Mix 70/30 Vial) 60 units SQ BID@0700,2200 [facility] Last Admin: 01/28/19 21:47 Dose: 45 units Insulin Aspart (Novolog Vial Sliding Scale -) 1 vial SQ TIDAC [facility]; Protocol Last Admin: 01/28/19 18:06 Dose: Not Given Magnesium Hydroxide (Milk Of Magnesia -) 30 ml PO DAILY PRN PRN Reason: CONSTIPATION Last Admin: 01/27/19 10:57 Dose: 30 ml Oxycodone HCl (Roxicodone -) 30 mg PO Q3H PRN PRN Reason: PAIN LEVEL 6-10 Last Admin: 01/28/19 10:11 Dose: 30 mg Polyethylene Glycol (Miralax (For Daily Use) -) 17 gm PO DAILY [facility] Last Admin: 01/28/19 10:05 Dose: 17 grams Senna (Senna -) 2 tab PO HS [facility] Last Admin: 01/28/19 21:48 Dose: 2 tab Silver Sulfadiazine (Silvadene -) 1 applic TP DAILY [facility] Last Admin: 01/28/19 10:06 Dose: 1 applic Sodium Chloride ([place] Nasal [place] -) 2 spray NS TID PRN PRN Reason: NASAL CONGESTION Spironolactone (Aldactone -) 50 mg PO DAILY [facility] Last Admin: 01/28/19 10:04 Dose: 50 mg # diastolic heart failure ---new onset HF 12/2018 acute on chronic diastolic HF - ECHO 12/2018 - EF 60%, nl LV/RV function -- repeat c/w previous - nuclear stress 12/2018 - negative - IV lasix -- changed to PO - will observe for weight gain on PO lasix - continue aldactone - monitor renal function and lytes, Cr has remained stable ( > 30 lbs weight loss on last hospitalization ) # Hep C last w/u no viral load will follow up with GI as out patient # DM ADA / insulin / sliding scale \episodes of hypoglycemia decrease insulin continue sliding scale # HTN #depression psych consulted and started on lexapro patient admits very anxious regarding medical condition have discussed with patient POC extensively and management which will control HF Problem List - Problems (1) Diastolic heart failure Code(s): I50.30 - UNSPECIFIED DIASTOLIC (CONGESTIVE) HEART FAILURE (2) Amputation of right lower extremity below knee Code(s): Z89.511 - ACQUIRED ABSENCE OF RIGHT LEG BELOW KNEE (3) Chronic pain Code(s): G89.29 - OTHER CHRONIC PAIN (4) Diabetes mellitus Code(s): E11.9 - TYPE 2 DIABETES MELLITUS WITHOUT COMPLICATIONS (5) HLD (hyperlipidemia) Code(s): E78.5 - HYPERLIPIDEMIA, UNSPECIFIED (6) HTN (hypertension) Code(s): I10 - ESSENTIAL (PRIMARY) HYPERTENSION (7) Hepatitis C Code(s): B19.20 - UNSPECIFIED VIRAL HEPATITIS C WITHOUT HEPATIC COMA
--- NOTE | 2019-01-30 16:03 | PN ---
Progress Note (short form) - Note Progress Note: s: no chest pain, palps, dizziness, dyspnea Current Medications Acetaminophen (Tylenol -) 325 mg PO Q6H PRN PRN Reason: PAIN LEVEL 1-5 Last Admin: 01/25/19 21:00 Dose: 325 mg Alprazolam (Xanax) 2 mg PO Q6H PRN PRN Reason: ANXIETY Last Admin: 01/30/19 09:44 Dose: 2 mg Amlodipine Besylate (Norvasc -) 5 mg PO DAILY [facility] Last Admin: 01/30/19 09:37 Dose: 5 mg Aspirin (Asa -) 81 mg PO DAILY [facility] Last Admin: 01/30/19 09:38 Dose: 81 mg Atorvastatin Calcium (Lipitor -) 20 mg PO HS [facility] Last Admin: 01/29/19 21:57 Dose: 20 mg Calcium Carbonate/Cholecalciferol (Os-Tra 500+D -) 1 tab PO BID [facility] Last Admin: 01/30/19 09:39 Dose: 1 tab Clonidine (Catapres -) 0.2 mg PO BID [facility] Last Admin: 01/30/19 09:37 Dose: 0.2 mg Docusate Sodium (Colace -) 100 mg PO BID [facility] Last Admin: 01/30/19 09:38 Dose: 100 mg Escitalopram Oxalate (Lexapro -) 10 mg PO DAILY [facility] Last Admin: 01/30/19 09:54 Dose: Not Given Furosemide (Lasix -) 40 mg PO BID@0600,1400 [facility] Last Admin: 01/30/19 14:57 Dose: 40 mg Insulin Aspart (Novolog Vial Sliding Scale -) 1 vial SQ TIDAC [facility]; Protocol Last Admin: 01/30/19 12:40 Dose: Not Given Insulin Aspart (Novolog Mix 70/30 Vial) 40 units SQ BID@0700,2200 [facility] Magnesium Hydroxide (Milk Of Magnesia -) 30 ml PO DAILY PRN PRN Reason: CONSTIPATION Last Admin: 01/27/19 10:57 Dose: 30 ml Oxycodone HCl (Roxicodone -) 30 mg PO Q3H PRN PRN Reason: PAIN LEVEL 6-10 Last Admin: 01/30/19 12:36 Dose: 30 mg Polyethylene Glycol (Miralax (For Daily Use) -) 17 gm PO DAILY [facility] Last Admin: 01/30/19 09:44 Dose: 17 grams Senna (Senna -) 2 tab PO HS [facility] Last Admin: 01/29/19 21:56 Dose: 2 tab Silver Sulfadiazine (Silvadene -) 1 applic TP DAILY [facility] Last Admin: 01/30/19 09:45 Dose: 1 applic Sodium Chloride ([place] Nasal [place] -) 2 spray NS TID PRN PRN Reason: NASAL CONGESTION Spironolactone (Aldactone -) 50 mg PO DAILY [facility] Last Admin: 01/30/19 09:37 Dose: 50 mg Vital Signs Period Temp Pulse Resp BP Sys/Cross Pulse Ox Last 24 Hr 97.7 F-98.9 F 54-76 18-20 110-145/57-93 98 Constitutional: Yes: Well Nourished, No Distress, Calm Cardiovascular: Yes: Regular Rate and Rhythm, S1, S2. No: Gallop, Murmur Respiratory: Yes: Regular, CTA Bilaterally. No: Accessory Muscle Use, Rales, Wheezes Extremities: No: Cold Edema: No (s/p RLE amputation) Neurological: Yes: Alert, Oriented Psychiatric: No: Agitated no jaundice, diaphoresis Assessment/Plan Echo 01/21: nl LV/RV, nl valve fxn. trivial peric effusion IMP: 1. Mild acute on chronic diastolic CHF 2. DM 3. Pericardial effusion 4. Mildly dilated ascending aorta. 5. ? retrocardiac infiltrate on cxr 6. HTN REC: - received lasix 40 iv bid here. cxr no chf. sob and swelling resolved. doubt lift scale wts accurate here (275-->247 in 4 days). labs stable = suspect he is euvolemic. - pt states he began retaining fluid again as outpt within couple of weeks from last HF discharge. was sent home on lasix 40 po bid, decreased to [address] capone for renal concerns (per pt, was preventative, no actual BEV noted). - Cont lasix 40 mg BID on discharge with q2 weeks BMP to monitor renal function for first 8 weeks. - cont spironolactone 50 qd as doing - BP target < 130/80. often at goals here. same meds for now. - states he had sleep apnea screening test when here last visit--rec formal overnight PSG as outpatient given hi risk neck habitus, and this may be a reversible cause of recurrent HF admits - ? w/u and/or treatment for possible retrocardiac infiltrate--defer to PMD
[2019-01-30] MEDS: SENNOSIDES 8.6MG TABLET (FP) PO SCH (22:04)
[2019-01-30] MEDS: ATORVASTATIN CA 20 MG TABLET (FP) PO SCH (22:04)
[2019-01-31] MEDS: oxyCODONE HCL 5 MG TABLET PO PRN ×2 (02:44→10:42)
[2019-01-31] MEDS: FUROSEMIDE 40 MG TABLET (FP) PO SCH (06:51)
[2019-01-31] MEDS: INSULIN SLIDING SCALE (NOVOLOG) 1 VIAL SQ SCH ×2 (08:00→11:49)
[2019-01-31 08:35] LABS: BASO % 0.8 % (0-2.0); EOS % 3.5 % (0-4.5); HEMATOCRIT 42.2 % (35.4-49); HEMOGLOBIN 13.7 GM/dL (11.7-16.9); LYMPH % 35.8 % (8-40); MCHC 32.5 g/dl (32.0-35.9); MEAN PLT VOLUME 9.6 fl (7.5-11.1); MONO % 6.2 % (3.8-10.2); NEUT % 53.7 % (42.8-82.8); PLATELET COUNT 165 K/MM3 (134-434); RBC 5.27 M/mm3 (4.00-5.60); RDW 16.2 % (11.9-15.9); WHITE BLOOD COUNT 9.1 K/mm3 (4.0-10.0)
[2019-01-31 08:55] LABS: BLOOD UREA NITROGEN 29.6 mg/dL (7-18); CALCIUM 9.3 mg/dL (8.5-10.1); CREATININE 1.3 mg/dL (0.55-1.3); POTASSIUM 4.2 mmol/L (3.5-5.1)
[2019-01-31] MEDS: DOCUSATE SODIUM 100 MG CAPSULE (FP) PO SCH (10:41)
[2019-01-31] MEDS: ESCITALOPRAM OXALATE 10 MG TABLET (FP) PO SCH (10:41)
[2019-01-31] MEDS: cloNIDine HCL 0.1 MG TABLET PO SCH (10:41)
[2019-01-31] MEDS: SPIRONOLACTONE 25 MG TABLET (FP) PO SCH (10:41)
[2019-01-31] MEDS: amLODIPine BESYLATE 5 MG TABLET (FP) PO SCH (10:41)
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
[2019-01-31] MEDS: ALPRAZolam 1 MG TABLET PO PRN (10:42)
[2019-01-31] MEDS: ASPIRIN 81 MG CHEWABLE TABLETS PO SCH (10:42)
[2019-01-31] MEDS: POLYETHYLENE GLYCOL 3350 119 GM BTL PO SCH (10:43)
[2019-01-31] MEDS: INSULIN (NOVOLOG MIX 70/30) 100 UNITS/ML MDV SQ SCH (10:43)
[2019-01-31] MEDS: SILVER SULFADIAZINE 1% TOP CREAM 400 GM JAR TP SCH (10:44)
[2019-01-31] MEDS: CALCIUM 500MG/VIT-D 200 UNITS COMBO TABLET (FP) PO SCH (10:44)
[2019-01-31 10:55] VITALS: BP 143/79; PULSE 72; TEMP 98.1
--- NOTE | 2019-01-31 12:16 | PN ---
Progress Note (short form) - Note Progress Note: s: no chest pain, palps, dizziness, dyspnea Current Medications Acetaminophen (Tylenol -) 325 mg PO Q6H PRN PRN Reason: PAIN LEVEL 1-5 Last Admin: 01/25/19 21:00 Dose: 325 mg Alprazolam (Xanax) 2 mg PO Q6H PRN PRN Reason: ANXIETY Last Admin: 01/31/19 10:42 Dose: 2 mg Amlodipine Besylate (Norvasc -) 5 mg PO DAILY [facility] Last Admin: 01/31/19 10:41 Dose: 5 mg Aspirin (Asa -) 81 mg PO DAILY [facility] Last Admin: 01/31/19 10:42 Dose: 81 mg Atorvastatin Calcium (Lipitor -) 20 mg PO HS [facility] Last Admin: 01/30/19 22:04 Dose: 20 mg Calcium Carbonate/Cholecalciferol (Os-Tra 500+D -) 1 tab PO BID [facility] Last Admin: 01/31/19 10:44 Dose: 1 tab Clonidine (Catapres -) 0.2 mg PO BID [facility] Last Admin: 01/31/19 10:41 Dose: 0.2 mg Docusate Sodium (Colace -) 100 mg PO BID [facility] Last Admin: 01/31/19 10:41 Dose: 100 mg Escitalopram Oxalate (Lexapro -) 10 mg PO DAILY [facility] Last Admin: 01/31/19 10:41 Dose: 10 mg Furosemide (Lasix -) 40 mg PO BID@0600,1400 [facility] Last Admin: 01/31/19 06:51 Dose: 40 mg Insulin Aspart (Novolog Vial Sliding Scale -) 1 vial SQ TIDAC [facility]; Protocol Last Admin: 01/31/19 11:49 Dose: 6 units Insulin Aspart (Novolog Mix 70/30 Vial) 40 units SQ BID@0700,2200 [facility] Last Admin: 01/31/19 10:43 Dose: 30 units Magnesium Hydroxide (Milk Of Magnesia -) 30 ml PO DAILY PRN PRN Reason: CONSTIPATION Last Admin: 01/27/19 10:57 Dose: 30 ml Oxycodone HCl (Roxicodone -) 30 mg PO Q3H PRN PRN Reason: PAIN LEVEL 6-10 Last Admin: 01/31/19 10:42 Dose: 30 mg Polyethylene Glycol (Miralax (For Daily Use) -) 17 gm PO DAILY [facility] Last Admin: 01/31/19 10:43 Dose: 17 grams Senna (Senna -) 2 tab PO HS [facility] Last Admin: 01/30/19 22:04 Dose: 2 tab Silver Sulfadiazine (Silvadene -) 1 applic TP DAILY [facility] Last Admin: 01/31/19 10:44 Dose: 1 applic Sodium Chloride ([place] Nasal [place] -) 2 spray NS TID PRN PRN Reason: NASAL CONGESTION Spironolactone (Aldactone -) 50 mg PO DAILY [facility] Last Admin: 01/31/19 10:41 Dose: 50 mg Vital Signs Period Temp Pulse Resp BP Sys/Cross Pulse Ox Last 24 Hr 97.7 F-99 F 58-72 18-18 119-153/53-88 98 Constitutional: Yes: Well Nourished, No Distress, Calm Cardiovascular: Yes: Regular Rate and Rhythm, S1, S2. No: Gallop, Murmur Respiratory: Yes: Regular, CTA Bilaterally. No: Accessory Muscle Use, Rales, Wheezes Extremities: No: Cold Edema: No (s/p RLE amputation) Neurological: Yes: Alert, Oriented Psychiatric: No: Agitated no jaundice, diaphoresis Assessment/Plan Echo 01/21: nl LV/RV, nl valve fxn. trivial peric effusion IMP: 1. Mild acute on chronic diastolic CHF 2. DM 3. Pericardial effusion 4. Mildly dilated ascending aorta. 5. ? retrocardiac infiltrate on cxr 6. HTN REC: - received lasix 40 iv bid here. cxr no chf. sob and swelling resolved. doubt lift scale wts accurate here (275-->247 in 4 days). labs stable = suspect he is euvolemic. - pt states he began retaining fluid again as outpt within couple of weeks from last HF discharge. was sent home on lasix 40 po bid, decreased to [address] capone for renal concerns (per pt, was preventative, no actual BEV noted). - ? w/u and/or treatment for possible retrocardiac infiltrate--defer to PMD - Cont lasix 40 mg BID on discharge with q2 weeks BMP to monitor renal function for first 8 weeks. - cont spironolactone 50 qd - states he had sleep apnea screening test when here last visit--rec formal overnight PSG as outpatient given hi risk neck habitus, and this may be a reversible cause of recurrent HF admits
[2019-01-31 12:29] VITALS: BMI 34.8
== END 2019-01-31 14:13 | disposition home or self-care (01) | DRG 194 ==
LOC: JER 20:19 → JERBED 23:07 → J5S 01-23 04:11
PROVIDERS: ADMIT Family Medicine; ATTEND Family Medicine
DX: I11.0 Hypertensive heart disease with heart failure (principal); I50.33 Acute on chronic diastolic (congestive) heart failure; E11.9 Type 2 diabetes mellitus without complications; E78.5 Hyperlipidemia, unspecified; B19.20 Unspecified viral hepatitis C without hepatic coma; F32.9 Major depressive disorder, single episode, unspecified; I77.819 Aortic ectasia, unspecified site; M54.5 Low back pain; G89.29 Other chronic pain; H54.40 Blindness, one eye, unspecified eye; E66.9 Obesity, unspecified; Z68.38 Body mass index [BMI] 38.0-38.9, adult; F41.9 Anxiety disorder, unspecified; I31.3 Pericardial effusion (noninflammatory); E11.649 Type 2 diabetes mellitus with hypoglycemia without coma; Z89.511 Acquired absence of right leg below knee; Z89.422 Acquired absence of other left toe(s)
CPT/HCPCS: 36415; 71045-TC-FY; 80048; 80053; 81003; 82550; 82962; 83605; 83735; 83880; 84443; 84484; 85025; 85027; 85610; 85730; 87040; 87086; 93005; 93010; 93306-TC; 93971-TC; 97116-GP; 97161-GP; 99284-25; J0735

== ENCOUNTER 2019-12-03 15:16 | Emergency (ER) | payer OTHER ==
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
[2019-12-03] MEDS ORDERED: NALOXONE HCL 0.4 MG/ML VIAL IVPUSH ONE (15:48)
[2019-12-03 15:49] VITALS: TEMP 98.7; BMI 33.6
[2019-12-03] MEDS ORDERED: NALOXONE HCL 0.4 MG/ML VIAL ONE (15:52)
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
[2019-12-03 16:11] LABS: BASO % 0.5 % (0-2.0); EOS % 2.2 % (0-4.5); HEMOGLOBIN 12.9 GM/dL (11.7-16.9); MCH 29.1 pg (25.7-33.7); MCHC 33.1 g/dl (32.0-35.9); MEAN CELL VOLUME 87.8 fl (80-96); MEAN PLT VOLUME 9.7 fl (7.5-11.1); MONO % 5.9 % (3.8-10.2); NEUT % 70.4 % (42.8-82.8); PLATELET COUNT 135 K/MM3 (134-434); RBC 4.44 M/mm3 (4.00-5.60); RDW 14.6 % (11.9-15.9); WHITE BLOOD COUNT 8.2 K/mm3 (4.0-10.0)
[2019-12-03 16:39] VITALS: BP 162/78; PULSE 56
[2019-12-03 16:45] LABS: ALBUMIN 3.7 g/dl (3.4-5.0); BILIRUBIN,TOTAL 0.4 mg/dL (0.2-1); BLOOD UREA NITROGEN 30.4 mg/dL (7-18); CALCIUM 8.8 mg/dL (8.5-10.1); CREATININE 1.7 mg/dL (0.55-1.3); POTASSIUM 4.6 mmol/L (3.5-5.1); TOT PROT 7.3 g/dl (6.4-8.2)
== END 2019-12-03 17:07 | disposition left against medical advice (07) ==
LOC: JER 15:16
PROC: 3E033GC Introduction of Other Therapeutic Substance into Peripheral Vein, Percutaneous Approach (ICD-10-PCS; principal; 2019-12-03)
DX: T40.604A Poisoning by unspecified narcotics, undetermined, initial encounter (principal)
CPT/HCPCS: 36415; 80053; 85025; 96374; 99284-25

== ENCOUNTER 2019-12-07 10:22 | Inpatient (IN) | payer OTHER ==
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
[2019-12-07] MEDS ORDERED: SODIUM CHLORIDE 0.9% 500 ML INFUS.BAG IV ONE (11:56)
[2019-12-07] MEDS ORDERED: ACETAMINOPHEN 1000 MG/100 ML VIAL (NON FORMULARY) IVPB ONE (12:03)
[2019-12-07] MEDS ORDERED: VANCOMYCIN 1 GM in D5W (PRE-DOCKED) 1,000 MG/250 ML IVPB ONE (12:14)
[2019-12-07] MEDS ORDERED: PIPERACILLIN/TAZOB 3.375 GM 3.375 GM in DEXTROSE 5%-WATER - 50 ML IVPB ONE (12:14)
[2019-12-07] MEDS ORDERED: ACETAMINOPHEN INJECTION 100 ML IVPB ONE (12:41)
[2019-12-07] MEDS ORDERED: VANCOMYCIN 1 GRAM (PRE-DOCKED) 1,000 MG/250 ML BAG IVPB ONE (12:41)
[2019-12-07] MEDS ORDERED: PIPERACILLIN/TAZOB 3.375 GM 3.375 GM/50 ML BAG IVPB ONE (12:41)
[2019-12-07 13:19] LABS: BASO % 0.4 % (0-2.0); EOS % 0.7 % (0-4.5); HEMATOCRIT 39.1 % (35.4-49); LYMPH % 18.1 % (8-40); MCH 29.1 pg (25.7-33.7); MCHC 33.2 g/dl (32.0-35.9); MEAN CELL VOLUME 87.5 fl (80-96); MEAN PLT VOLUME 9.2 fl (7.5-11.1); MONO % 10.3 % (3.8-10.2); NEUT % 70.5 % (42.8-82.8); PLATELET COUNT 116 K/MM3 (134-434); RBC 4.47 M/mm3 (4.00-5.60); RDW 14.8 % (11.9-15.9); WHITE BLOOD COUNT 9.5 K/mm3 (4.0-10.0)
[2019-12-07 13:24] LABS: INR 1.19 (0.83-1.09); PROTHROMBIN TIME (PATIENT) 14.1 SEC (9.7-13.0)
[2019-12-07 13:26] LABS: ACTIVATED PTT 29.8 SECONDS (25.2-36.5)
[2019-12-07 14:00] LABS: ALBUMIN 3.5 g/dl (3.4-5.0); BILIRUBIN,TOTAL 0.6 mg/dL (0.2-1); BLOOD UREA NITROGEN 29.4 mg/dL (7-18); CALCIUM 8.4 mg/dL (8.5-10.1); CREATININE 1.5 mg/dL (0.55-1.3); POTASSIUM 4.6 mmol/L (3.5-5.1); TOT PROT 7.2 g/dl (6.4-8.2)
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
--- NOTE | 2019-12-07 15:27 | EKG ---
Test Reason : Blood Pressure : / mmHG Vent. Rate : 060 BPM Atrial Rate : 060 BPM P-R Int : 208 ms QRS Dur : 084 ms QT Int : 410 ms P-R-T Axes : 016 005 016 degrees QTc Int : 410 ms NORMAL SINUS RHYTHM NORMAL ECG WHEN COMPARED WITH ECG OF 07-DEC-2019 10:30, NO SIGNIFICANT CHANGE WAS FOUND Confirmed by JODI FIGUEROA MD ([id number]) on 12/07/2019 3:26:47 PM Referred By: Confirmed By:JODI FIGUEROA MD
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
[2019-12-07] MEDS ORDERED: MAGNESIUM HYDROX 2400MG/30ML ORAL SUSPENSION 30 ML CUP PO PRN (18:12)
[2019-12-07] MEDS ORDERED: ACETAMINOPHEN 325 MG TABLET (FP) PO PRN (18:15)
[2019-12-07] MEDS ORDERED: DOCUSATE SODIUM 100 MG CAPSULE (FP) PO PRN (18:18)
[2019-12-07] MEDS ORDERED: SODIUM CHLORIDE NASAL SPRAY 44 ML BOTTLE NS PRN (18:23)
[2019-12-07] MEDS ORDERED: SENNOSIDES 8.6MG TABLET (FP) PO PRN (18:23)
[2019-12-07] MEDS ORDERED: FUROSEMIDE 40 MG TABLET (FP) ONE (20:07)
[2019-12-07] MEDS ORDERED: PANTOPRAZOLE 40 MG TABLET ONE (20:07)
[2019-12-07] MEDS ORDERED: METOCLOPRAMIDE HCL 10 MG TABLET (FP) PO ONE (20:08)
[2019-12-07] MEDS ORDERED: ENOXAPARIN NA (PORCINE) 40 MG/0.4 ML DISP.SYRIN SQ ONE (20:08)
[2019-12-07] MEDS: INSULIN SLIDING SCALE (NOVOLOG) 1 VIAL SQ SCH (20:26)
[2019-12-07] MEDS: PANTOPRAZOLE 40 MG TABLET PO SCH (20:27)
[2019-12-07] MEDS: METOCLOPRAMIDE HCL 10 MG TABLET (FP) PO SCH (20:27)
[2019-12-07] MEDS: FUROSEMIDE 40 MG TABLET (FP) PO SCH (20:27)
[2019-12-07] MEDS: ENOXAPARIN NA (PORCINE) 40 MG/0.4 ML DISP.SYRIN SQ SCH (20:27)
[2019-12-07] MEDS ORDERED: cloNIDine HCL 0.1 MG TABLET ONE (22:11)
[2019-12-07] MEDS ORDERED: ATORVASTATIN CA 20 MG TABLET (FP) ONE (22:11)
[2019-12-07] MEDS: NYSTATIN 100,000 UNIT/GM TOPICAL CREAM 15 GM TUBE TP SCH (22:35)
[2019-12-07] MEDS: cloNIDine HCL 0.1 MG TABLET PO SCH (22:35)
[2019-12-07] MEDS: ATORVASTATIN CA 20 MG TABLET (FP) PO SCH (22:35)
[2019-12-07] MEDS: CALCIUM (OYSTER SHELL) 500 MG TABLET (FP) PO SCH (22:35)
[2019-12-08] MEDS: oxyCODONE HCL 5 MG TABLET PO PRN ×4 (05:11→21:27)
[2019-12-08] MEDS: ALPRAZolam 1 MG TABLET PO PRN ×4 (05:12→23:47)
[2019-12-08] MEDS: FUROSEMIDE 40 MG TABLET (FP) PO SCH ×2 (06:55→15:05)
[2019-12-08] MEDS: INSULIN SLIDING SCALE (NOVOLOG) 1 VIAL SQ SCH ×3 (06:56→17:19)
[2019-12-08] MEDS: METOCLOPRAMIDE HCL 10 MG TABLET (FP) PO SCH ×3 (06:56→17:15)
[2019-12-08] MEDS ORDERED: INSULIN (NOVOLOG MIX 70/30) 100 UNITS/ML MDV SQ SCH (07:00)
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
[2019-12-08 09:08] VITALS: BMI 40.4
[2019-12-08] MEDS ORDERED: PT OWN MED DRAWER 7, Y5N ONE ×4 (10:25→16:51)
[2019-12-08] MEDS: SPIRONOLACTONE 25 MG TABLET PO SCH (11:14)
[2019-12-08] MEDS: amLODIPine BESYLATE 5 MG TABLET (FP) PO SCH (11:14)
[2019-12-08] MEDS: CALCIUM (OYSTER SHELL) 500 MG TABLET (FP) PO SCH ×2 (11:14→21:27)
[2019-12-08] MEDS: ASPIRIN COATED 81 MG TABLET.EC PO SCH (11:14)
[2019-12-08] MEDS: cloNIDine HCL 0.1 MG TABLET PO SCH ×2 (11:15→21:27)
[2019-12-08] MEDS: PANTOPRAZOLE 40 MG TABLET PO SCH (11:15)
[2019-12-08] MEDS: LACTOBACILLUS ACIDOPHILUS 1 TABLET PO SCH (11:15)
[2019-12-08] MEDS: ENOXAPARIN NA (PORCINE) 40 MG/0.4 ML DISP.SYRIN SQ SCH (11:15)
[2019-12-08] MEDS: ESCITALOPRAM OXALATE 10 MG TABLET PO SCH (11:15)
[2019-12-08] MEDS: POLYETHYLENE GLYCOL 3350 119 GM BTL PO SCH (11:15)
--- NOTE | 2019-12-08 12:27 | FALL ---
Fall Exam - Event Witnessed fall: No Location of Fall: Bathroom Fall from: Toilet - Pre-Fall Mental Status: Alert, Oriented, Cooperative Current Medications: Current Medications Generic Name Dose Route Start Last Admin Trade Name Freq PRN Reason Stop Dose Admin Acetaminophen 325 mg 12/07/19 18:15 Tylenol - PO Q6H PRN PAIN LEVEL 6-10 Alprazolam 2 mg 12/07/19 18:16 12/08/19 11:40 Xanax PO 2 mg Q6H PRN Administration ANXIETY Amlodipine Besylate 5 mg 12/08/19 10:00 12/08/19 11:14 Norvasc - PO 5 mg DAILY [facility] Administration Aspirin 81 mg 12/08/19 10:00 12/08/19 11:14 Ecotrin - PO 81 mg DAILY PR[facility] Administration Atorvastatin Calcium 20 mg 12/07/19 22:00 12/07/19 22:35 Lipitor - PO 20 mg HS PR[facility] Administration Calcium Carbonate 500 mg 12/07/19 22:00 12/08/19 11:14 Os-Tra 500mg - PO 500 mg BID PR[facility] Administration Clonidine 0.2 mg 12/07/19 22:00 12/08/19 11:15 Catapres - PO 0.2 mg BID PR[facility] Administration Docusate Sodium 100 mg 12/07/19 18:18 Colace - PO BID PRN CONSTIPATION Enoxaparin Sodium 40 mg 12/07/19 18:45 12/08/19 11:15 Lovenox - SQ 40 mg DAILY [facility] Administration Escitalopram Oxalate 10 mg 12/08/19 10:00 12/08/19 11:15 Lexapro - PO 10 mg DAILY [facility] Administration Furosemide 80 mg 12/07/19 18:45 12/08/19 06:55 Lasix - PO 80 mg BIDLASIX PRICE Administration Insulin Aspart 1 vial 12/07/19 18:15 12/08/19 11:18 Novolog Vial Sliding Scale - SQ 7 units TIDAC PR[facility] Administration Protocol Insulin Aspart 30 units 12/08/19 07:00 12/08/19 06:57 Novolog Mix 70/30 Vial SQ 30 units BIDAC PR[facility] Administration Lactobacillus Acidophilus 1 tab 12/08/19 10:00 12/08/19 11:15 Bacid - PO 1 tab DAILY PR[facility] Administration Magnesium Hydroxide 30 ml 12/07/19 18:12 Milk Of Magnesia - PO DAILY PRN CONSTIPATION Metoclopramide HCl 10 mg 12/07/19 18:30 12/08/19 11:14 Reglan - PO 10 mg TIDAC PR[facility] Administration Nystatin 1 applic 12/07/19 22:00 12/07/19 22:35 Mycostatin Cream - TP 1 applic BID PR[facility] Administration Oxycodone HCl 30 mg 12/07/19 18:10 12/08/19 11:13 Roxicodone - PO 30 mg Q4H PRN Administration PAIN LEVEL 6-10 Pantoprazole Sodium 40 mg 12/07/19 19:00 12/08/19 11:15 Protonix - PO 40 mg DAILY PRICE Administration Polyethylene Glycol 17 gm 12/08/19 10:00 12/08/19 11:15 Miralax (For Daily Use) - PO Not Given DAILY PRICE Senna 2 tab 12/07/19 18:23 Senna - PO HS PRN CONSTIPATION Sodium Chloride 2 spray 12/07/19 18:23 [place] Nasal [place] - NS BID PRN NASAL CONGESTION Spironolactone 50 mg 12/08/19 10:00 12/08/19 11:14 Aldactone - PO 50 mg DAILY PR[facility] Administration 12/08/19 12:24 Pt noted to have fallen after crawling to the bathroom for defecation and slipping off the toilet due to recent BKA and malpositioning. Patient never lost consciousness and never had any injury. No changes to mental status or function. Eating at bedside when came to assess. Patient was unwitnessed to fall, however is refusing CT scan anyway. Can proceed without CT Head and reinforced patient calling staff for help out of bed. Elver Mathews, DO - IM - Post-Fall Patient Outcome: No Injury Treatment: None Vital Signs: Vital Signs Temperature 98.7 F 12/08/19 06:00 Pulse Rate 52 L 12/08/19 06:00 Respiratory Rate 20 12/08/19 06:00 Blood Pressure 146/60 12/08/19 06:00 O2 Sat by Pulse Oximetry (%) 98 12/08/19 06:00 LOC Post-Fall: Unchanged, Awake, Alert, Oriented Identify factors for HIGH RISK for Head Injury: None of the above
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
--- NOTE | 2019-12-08 15:39 | PN ---
Progress Note (short form) - Note Progress Note: ID consult dictated patient well known to me developed sudden onset of fever and chills then painful erythema of the LLE- presented with acute cellulitis yesterday Problem List - Problems (1) Cellulitis of left leg Code(s): L03.116 - CELLULITIS OF LEFT LOWER LIMB (2) Diabetes mellitus Code(s): E11.9 - TYPE 2 DIABETES MELLITUS WITHOUT COMPLICATIONS Qualifiers: Diabetes mellitus type: type 2 Diabetes mellitus snf insulin use: unspecified snf insulin use status Diabetes mellitus complication status: with other specified complication Qualified Code(s): E11.69 - Type 2 diabetes mellitus with other specified complication (3) History of MRSA infection Code(s): Z86.14 - PERSONAL HISTORY OF METHICILLIN RESIS STAPH INFECTION
[2019-12-08 16:28] LABS: BASO % 0.5 % (0-2.0); EOS % 1.3 % (0-4.5); HEMATOCRIT 39.7 % (35.4-49); HEMOGLOBIN 13.1 GM/dL (11.7-16.9); LYMPH % 14.5 % (8-40); MCH 28.8 pg (25.7-33.7); MEAN CELL VOLUME 87.2 fl (80-96); MEAN PLT VOLUME 10.1 fl (7.5-11.1); MONO % 7.6 % (3.8-10.2); NEUT % 76.1 % (42.8-82.8); PLATELET COUNT 119 K/MM3 (134-434); RBC 4.56 M/mm3 (4.00-5.60); RDW 14.4 % (11.9-15.9); WHITE BLOOD COUNT 8.3 K/mm3 (4.0-10.0)
[2019-12-08] MEDS ORDERED: DEXTROSE 5%-WATER 100 ML IVPB ONE (16:51)
[2019-12-08] MEDS: INSULIN (NOVOLOG MIX 70/30) 100 UNITS/ML MDV SQ SCH (17:17)
[2019-12-08] MEDS: CEFTRIAXONE 2 GM in DEXTROSE 5%-WATER 100 ML IVPB SCH (17:19)
[2019-12-08 17:36] LABS: ALBUMIN 3.4 g/dl (3.4-5.0); BILIRUBIN,TOTAL 0.5 mg/dL (0.2-1); BLOOD UREA NITROGEN 22.5 mg/dL (7-18); CALCIUM 8.8 mg/dL (8.5-10.1); CREATININE 1.1 mg/dL (0.55-1.3); POTASSIUM 4.2 mmol/L (3.5-5.1); TOT PROT 6.9 g/dl (6.4-8.2)
[2019-12-08] MEDS: VANCOMYCIN HCL 1,250 MG in DEXTROSE 5%-WATER - 250 ML IVPB SCH (17:53)
[2019-12-08] MEDS: NYSTATIN 100,000 UNIT/GM TOPICAL CREAM 15 GM TUBE TP SCH ×2 (17:54→21:33)
[2019-12-08] MEDS ORDERED: INSULIN (NOVOLOG) ASPART 100 UNITS/ML 10ML VIAL ONE (19:35)
[2019-12-08] MEDS ORDERED: INSULIN (NOVOLOG MIX 70/30) 100 UNITS/ML MDV SQ ONE (19:36)
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
[2019-12-08] MEDS: ATORVASTATIN CA 20 MG TABLET (FP) PO SCH (21:28)
[2019-12-09] MEDS: oxyCODONE HCL 5 MG TABLET PO PRN ×3 (04:09→21:08)
[2019-12-09] MEDS: METOCLOPRAMIDE HCL 10 MG TABLET (FP) PO SCH ×3 (06:02→16:27)
[2019-12-09] MEDS: INSULIN (NOVOLOG MIX 70/30) 100 UNITS/ML MDV SQ SCH ×2 (06:02→16:29)
[2019-12-09] MEDS: INSULIN SLIDING SCALE (NOVOLOG) 1 VIAL SQ SCH ×3 (06:02→16:29)
[2019-12-09] MEDS ORDERED: INSULIN (NOVOLOG) ASPART 100 UNITS/ML 10ML VIAL ONE ×2 (06:40→11:03)
[2019-12-09] MEDS ORDERED: INSULIN (NOVOLOG MIX 70/30) 100 UNITS/ML MDV SQ ONE ×2 (06:41→16:53)
[2019-12-09] MEDS: FUROSEMIDE 40 MG TABLET (FP) PO SCH ×2 (06:50→14:13)
[2019-12-09 08:19] LABS: BASO % 0.2 % (0-2.0); EOS % 2.6 % (0-4.5); HEMATOCRIT 38.3 % (35.4-49); HEMOGLOBIN 13.2 GM/dL (11.7-16.9); MCH 29.4 pg (25.7-33.7); MCHC 34.5 g/dl (32.0-35.9); MEAN CELL VOLUME 85.4 fl (80-96); MEAN PLT VOLUME 10.5 fl (7.5-11.1); MONO % 7.4 % (3.8-10.2); NEUT % 66.8 % (42.8-82.8); PLATELET COUNT 121 K/MM3 (134-434); RBC 4.49 M/mm3 (4.00-5.60); RDW 14.6 % (11.9-15.9); WHITE BLOOD COUNT 8.5 K/mm3 (4.0-10.0)
[2019-12-09 08:48] LABS: ALBUMIN 3.3 g/dl (3.4-5.0); BILIRUBIN,TOTAL 0.6 mg/dL (0.2-1); BLOOD UREA NITROGEN 20.1 mg/dL (7-18); CALCIUM 8.3 mg/dL (8.5-10.1); CREATININE 1.1 mg/dL (0.55-1.3); POTASSIUM 3.5 mmol/L (3.5-5.1); TOT PROT 6.8 g/dl (6.4-8.2)
--- NOTE | 2019-12-09 09:06 | PN ---
Progress Note, Physician Chief Complaint: Patient seen and examined at the bedside, no acute events from last night, edema of LLE gradually subsiding. History of Present Illness: This 54 yr old w/m with PMH of DM, s/p right BKA, s/p amputation of the left 5th toe, recent treatment of osteomyelitis, HTN, ACS, chronic low back pain admitted via ER with an acute cellulitis of the LLE, prerenal azotemia, and thrombocyt openia. - Current Medication List Current Medications: Active Medications Acetaminophen (Tylenol -) 325 mg PO Q6H PRN PRN Reason: PAIN LEVEL 6-10 Alprazolam (Xanax) 2 mg PO Q6H PRN PRN Reason: ANXIETY Last Admin: 12/08/19 23:47 Dose: 2 mg Documented by: Amlodipine Besylate (Norvasc -) 5 mg PO DAILY [facility] Last Admin: 12/08/19 11:14 Dose: 5 mg Documented by: Aspirin (Ecotrin -) 81 mg PO DAILY [facility] Last Admin: 12/08/19 11:14 Dose: 81 mg Documented by: Atorvastatin Calcium (Lipitor -) 20 mg PO HS [facility] Last Admin: 12/08/19 21:28 Dose: 20 mg Documented by: Bacitracin (Bacitracin -) 1 applic TP DAILY [facility] Calcium Carbonate (Os-Tra 500mg -) 500 mg PO BID [facility] Last Admin: 12/08/19 21:27 Dose: 500 mg Documented by: Clonidine (Catapres -) 0.2 mg PO BID [facility] Last Admin: 12/08/19 21:27 Dose: Not Given Documented by: Docusate Sodium (Colace -) 100 mg PO BID PRN PRN Reason: CONSTIPATION Enoxaparin Sodium (Lovenox -) 40 mg SQ DAILY [facility] Last Admin: 12/08/19 11:15 Dose: 40 mg Documented by: Escitalopram Oxalate (Lexapro -) 10 mg PO DAILY [facility] Last Admin: 12/08/19 11:15 Dose: 10 mg Documented by: Furosemide (Lasix -) 80 mg PO BIDLASIX [facility] Last Admin: 12/09/19 06:50 Dose: 80 mg Documented by: Vancomycin HCl 1,250 mg/ (Dextrose) 250 mls @ 250 mls/2 hr IVPB Q24H [facility]; Protocol Last Admin: 12/08/19 17:53 Dose: 250 mls/2 hr Documented by: Ceftriaxone Sodium 2 gm/ (Dextrose) 100 mls @ 200 mls/hr IVPB DAILY [facility]; P rotocol Last Admin: 12/08/19 17:19 Dose: 200 mls/hr Documented by: Insulin Aspart (Novolog Vial Sliding Scale -) 1 vial SQ TIDAC [facility]; Protocol Last Admin: 12/09/19 06:02 Dose: 3 units Documented by: Insulin Aspart (Novolog Mix 70/30 Vial) 32 units SQ BIDAC [facility] Last Admin: 12/09/19 06:02 Dose: 32 units Documented by: Lactobacillus Acidophilus (Bacid -) 1 tab PO DAILY [facility] Last Admin: 12/08/19 11:15 Dose: 1 tab Documented by: Magnesium Hydroxide (Milk Of [place] -) 30 ml PO DAILY PRN PRN Reason: CONSTIPATION Metoclopramide HCl (Reglan -) 10 mg PO TIDAC [facility] Last Admin: 12/09/19 06:02 Dose: 10 mg Documented by: Nystatin (Mycostatin Cream -) 1 applic TP BID [facility] Last Admin: 12/08/19 21:33 Dose: 1 applic Documented by: Oxycodone HCl (Roxicodone -) 30 mg PO Q4H PRN PRN Reason: PAIN LEVEL 6-10 Last Admin: 12/09/19 04:09 Dose: 30 mg Documented by: Pantoprazole Sodium (Protonix -) 40 mg PO DAILY [facility] Last Admin: 12/08/19 11:15 Dose: 40 mg Documented by: Polyethylene Glycol (Miralax (For Daily Use) -) 17 gm PO DAILY [facility] Last Admin: 12/08/19 11:15 Dose: Not Given Documented by: Senna (Senna -) 2 tab PO HS PRN PRN Reason: CONSTIPATION Sodium Chloride ([place] Nasal [place] -) 2 spray NS BID PRN PRN Reason: NASAL CONGESTION Spironolactone (Aldactone -) 50 mg PO DAILY [facility] Last Admin: 12/08/19 11:14 Dose: 50 mg Documented by: - Objective Vital Signs: Vital Signs Temperature 98.5 F 12/09/19 06:01 Pulse Rate 52 L 12/09/19 06:01 Respiratory Rate 20 12/09/19 06:01 Blood Pressure 156/68 12/09/19 06:01 O2 Sat by Pulse Oximetry (%) 98 12/09/19 05:53 Constitutional: Yes: Well Nourished, Calm, Mild Distress Eyes: Yes: Conjunctiva Clear, EOM Intact HENT: Yes: Atraumatic, Normocephalic Neck: Yes: Supple, Trachea Midline Cardiovascular: Yes: Regular Rate and Rhythm Respiratory: Yes: Regular, CTA Bilaterally Gastrointestinal: Yes: Normal Bowel Sounds, Soft ...Rectal Exam: Yes: Deferred Genitourinary: Yes: WNL Breast(s): Yes: WNL Musculoskeletal: Yes: Muscle Weakness Extremities: Yes: Amputation (right bka, amputation left 5th toe) Edema: Yes Edema: LLE: 2+ Peripheral Pulses WNL: Yes Integumentary: Yes: Erythema (left lower leg), Other (cellulitis of left lower leg, open wound of the left heel) Neurological: Yes: Alert, Oriented, Unsteady Gait, Weakness ...Motor Strength: LUE (generalized muscle weakness of all extremities) Psychiatric: Yes: Alert, Oriented Labs: CBC, BMP 12/09/19 07:10 12/09/19 07:10 INR, PTT INR 1.19 (0.83-1.09) H 12/07/19 12:30 - ....Imaging Other: Report Reviewed (lab data reviewed) Problem List - Problems (1) Abnormal liver function tests Code(s): R94.5 - ABNORMAL RESULTS OF LIVER FUNCTION STUDIES (2) Amputation of right lower extremity below knee Code(s): Z89.511 - ACQUIRED ABSENCE OF RIGHT LEG BELOW KNEE (3) Amputation stump infection Code(s): T87.40 - INFECTION OF AMPUTATION STUMP, UNSPECIFIED EXTREMITY (4) Bilateral pleural effusion Code(s): J90 - PLEURAL EFFUSION, NOT ELSEWHERE CLASSIFIED (5) CHF exacerbation Code(s): I50.9 - HEART FAILURE, UNSPECIFIED Qualifiers: Heart failure type: diastolic Qualified Code(s): I50.33 - Acute on chronic diastolic (congestive) heart failure (6) Cellulitis Code(s): L03.90 - CELLULITIS, UNSPECIFIED Qualifiers: Site of cellulitis: extremity Site of cellulitis of extremity: lower extremity Laterality: left Qualified Code(s): L03.116 - Cellulitis of left lower limb (7) Cellulitis of left leg Code(s): L03.116 - CELLULITIS OF LEFT LOWER LIMB (8) Chest pain Code(s): R07.9 - CHEST PAIN, UNSPECIFIED Qualifiers: Chest pain type: other chest pain Qualified Code(s): R07.89 - Other chest pain (9) Diabetic foot ulcer Code(s): E11.621 - TYPE 2 DIABETES MELLITUS WITH FOOT ULCER; L97.509 - NON- PRESSURE CHRONIC ULCER OTH PRT UNSP FOOT W UNSP SEVERITY Qualifiers: (10) Diastolic heart failure Code(s): I50.30 - UNSPECIFIED DIASTOLIC (CONGESTIVE) HEART FAILURE (11) Hepatic cirrhosis Code(s): K74.60 - UNSPECIFIED CIRRHOSIS OF LIVER (12) Hepatitis A infection Code(s): B15.9 - HEPATITIS A WITHOUT HEPATIC COMA (13) Hypoxemia requiring supplemental oxygen Code(s): R09.02 - HYPOXEMIA; Z99.81 - DEPENDENCE ON SUPPLEMENTAL OXYGEN (14) MRSA (methicillin resistant staph aureus) culture positive Code(s): Z22.322 - CARRIER OR SUSPECTED CARRIER OF METHICILLIN RESIS STAPH (15) Opiate overdose Code(s): T40.601A - POISONING BY UNSP NARCOTICS, ACCIDENTAL, INIT Qualifiers: Encounter type: initial encounter Injury intent: undetermined intent Qualified Code(s): T40.604A - Poisoning by unspecified narcotics, undetermined, initial encounter (16) Osteomyelitis Code(s): M86.9 - OSTEOMYELITIS, UNSPECIFIED Qualifiers: Osteomyelitis type: unspecified type Osteomyelitis location: tibia Laterality: right Qualified Code(s): M86.9 - Osteomyelitis, unspecified (17) Osteomyelitis of right lower extremity Code(s): M86.9 - OSTEOMYELITIS, UNSPECIFIED (18) Rib pain on right side Code(s): R07.81 - PLEURODYNIA (19) Thrombocytopenia Code(s): D69.6 - THROMBOCYTOPENIA, UNSPECIFIED (20) Anxiety Code(s): F41.9 - ANXIETY DISORDER, UNSPECIFIED (21) Chronic foot ulcer Code(s): L97.509 - NON-PRESSURE CHRONIC ULCER OTH PRT UNSP FOOT W UNSP SEVERITY Qualifiers: (22) Chronic pain Code(s): G89.29 - OTHER CHRONIC PAIN Qualifiers: Chronic pain type: other chronic pain Qualified Code(s): G89.29 - Other chronic pain (23) Diabetes mellitus Code(s): E11.9 - TYPE 2 DIABETES MELLITUS WITHOUT COMPLICATIONS Qualifiers: Diabetes mellitus type: type 2 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: 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 correction insulin use status Diabetes mellitus complication status: with other specified complication Qualified Code(s): E11.69 - Type 2 diabetes mellitus with other specified complication (24) HLD (hyperlipidemia) Code(s): E78.5 - HYPERLIPIDEMIA, UNSPECIFIED (25) HTN (hypertension) Code(s): I10 - ESSENTIAL (PRIMARY) HYPERTENSION (26) Hepatitis C Code(s): B19.20 - UNSPECIFIED VIRAL HEPATITIS C WITHOUT HEPATIC COMA (27) Methadone dependence Code(s): F11.20 - OPIOID DEPENDENCE, UNCOMPLICATED (28) Opioid dependence on agonist therapy Code(s): F11.20 - OPIOID DEPENDENCE, UNCOMPLICATED (29) PTSD (post-traumatic stress disorder) Code(s): F43.10 - POST-TRAUMATIC STRESS DISORDER, UNSPECIFIED (30) Peripheral neuropathy Code(s): G62.9 - POLYNEUROPATHY, UNSPECIFIED Qualifiers: Assessment/Plan Assessment/plan: acute cellulitis of the left lower leg, open wound of the left plantar heel, vascular ulcer of the right stump, DM, HTN, s/p treatment for osteomyelitis, s/p right BKA, s/p amputation of left 5th toe; IV Ceftriaxone and Vancomycin for acute cellulitis of the left lower leg and open wound of the left plantar heel, SQ Lovenox and oral pantoprazole for DVT/GI prophylaxis, physical therapy for deconditioning, Novolog 70/30 mix and regular insulin coverage for DM, spironolactone clonidine and amlodipine for HTN, oral furosemide for acute on chronic diastolic CHF, topical bacitracin ointment for open wound of the left plantar heel, oxycodone for chronic low back pain, lexapro for depression, and alprazolam for anxiety.
[2019-12-09] MEDS ORDERED: PT OWN MED DRAWER 7, Y5N ONE (09:57)
[2019-12-09] MEDS ORDERED: DEXTROSE 5%-WATER 100 ML IVPB ONE (09:58)
[2019-12-09] MEDS ORDERED: BACITRACIN 15 GM TUBE TOPICAL OINTMENT TP SCH (10:00)
[2019-12-09] MEDS: SPIRONOLACTONE 25 MG TABLET PO SCH (10:02)
[2019-12-09] MEDS: cloNIDine HCL 0.1 MG TABLET PO SCH ×2 (10:03→21:07)
[2019-12-09] MEDS: ASPIRIN COATED 81 MG TABLET.EC PO SCH (10:03)
[2019-12-09] MEDS: ESCITALOPRAM OXALATE 10 MG TABLET PO SCH (10:04)
[2019-12-09] MEDS: POLYETHYLENE GLYCOL 3350 119 GM BTL PO SCH (10:04)
[2019-12-09] MEDS: PANTOPRAZOLE 40 MG TABLET PO SCH (10:05)
[2019-12-09] MEDS: amLODIPine BESYLATE 5 MG TABLET (FP) PO SCH (10:05)
[2019-12-09] MEDS: CALCIUM (OYSTER SHELL) 500 MG TABLET (FP) PO SCH ×2 (10:05→21:07)
[2019-12-09] MEDS: CEFTRIAXONE 2 GM in DEXTROSE 5%-WATER 100 ML IVPB SCH (10:05)
[2019-12-09] MEDS: ENOXAPARIN NA (PORCINE) 40 MG/0.4 ML DISP.SYRIN SQ SCH (10:06)
[2019-12-09] MEDS: LACTOBACILLUS ACIDOPHILUS 1 TABLET PO SCH (10:14)
[2019-12-09] MEDS: NYSTATIN 100,000 UNIT/GM TOPICAL CREAM 15 GM TUBE TP SCH ×2 (10:15→21:08)
[2019-12-09] MEDS: BACITRACIN 15 GM TUBE TOPICAL OINTMENT TP SCH (10:15)
[2019-12-09] MEDS: ALPRAZolam 1 MG TABLET PO PRN ×2 (10:36→21:14)
--- NOTE | 2019-12-09 13:47 | PN ---
Progress Note (short form) - Note Progress Note: still with pain in LLE Vital Signs Period Temp Pulse Resp BP Sys/Cross Pulse Ox Last 24 Hr 97.5 F-99.2 F 52-60 20-20 125-156/52-77 96-98 cor-rrr lungs clear ext less erythema and warmth LLE right BKA CBC, BMP 12/09/19 07:10 12/09/19 07:10 Microbiology 12/07/19 12:30 Blood - Peripheral Venous Blood Culture - Preliminary NO GROWTH OBTAINED AFTER 48 HOURS, INCUBATION TO CONTINUE FOR 3 DAYS. 12/07/19 12:30 Blood - Peripheral Venous Blood Culture - Preliminary NO GROWTH OBTAINED AFTER 48 HOURS, INCUBATION TO CONTINUE FOR 3 DAYS. a/p cellulitis LLE- improving continue vanco/ceftriaxone prior history of MRSA Diabetes norman- resolved-increase vanco dosing to q12h contact isolation
[2019-12-09] MEDS: VANCOMYCIN 1 GRAM (PRE-DOCKED) 1,000 MG/250 ML BAG IVPB SCH (14:14)
[2019-12-09] MEDS: ATORVASTATIN CA 20 MG TABLET (FP) PO SCH (21:07)
[2019-12-10] MEDS: oxyCODONE HCL 5 MG TABLET PO PRN ×4 (02:38→21:22)
[2019-12-10] MEDS: VANCOMYCIN 1 GRAM (PRE-DOCKED) 1,000 MG/250 ML BAG IVPB SCH ×2 (02:39→13:30)
[2019-12-10] MEDS: INSULIN (NOVOLOG MIX 70/30) 100 UNITS/ML MDV SQ SCH ×2 (06:30→16:43)
[2019-12-10] MEDS: METOCLOPRAMIDE HCL 10 MG TABLET (FP) PO SCH ×3 (06:30→16:39)
[2019-12-10] MEDS: FUROSEMIDE 40 MG TABLET (FP) PO SCH ×2 (06:30→13:29)
[2019-12-10] MEDS: INSULIN SLIDING SCALE (NOVOLOG) 1 VIAL SQ SCH ×3 (06:31→16:44)
[2019-12-10 08:11] LABS: EOS % 1.3 % (0-4.5); HEMATOCRIT 42.7 % (35.4-49); HEMOGLOBIN 14.2 GM/dL (11.7-16.9); LYMPH % 21.3 % (8-40); MCH 28.3 pg (25.7-33.7); MCHC 33.2 g/dl (32.0-35.9); MEAN CELL VOLUME 85.3 fl (80-96); MEAN PLT VOLUME 9.5 fl (7.5-11.1); MONO % 6.9 % (3.8-10.2); NEUT % 67.5 % (42.8-82.8); PLATELET COUNT 138 K/MM3 (134-434); RBC 5.01 M/mm3 (4.00-5.60); RDW 14.5 % (11.9-15.9); WHITE BLOOD COUNT 8.5 K/mm3 (4.0-10.0)
--- NOTE | 2019-12-10 08:31 | PN ---
Progress Note, Physician Chief Complaint: Patient seen and examined at the bedside, no acute events from last night, edema and erythema gradually subsiding of the left lower leg. History of Present Illness: This 54 yr old w/m with PMH of MRSA, right BKA, amputation of the left 5th toe, recent treatment of osteomyelitis, DM, HTN, chronic low back pain admitted via ER with an acute cellulitis of the left lower leg, prerenal azotemia, and thrombocytopenia. - Current Medication List Current Medications: Active Medications Acetaminophen (Tylenol -) 325 mg PO Q6H PRN PRN Reason: PAIN LEVEL 6-10 Last Admin: 12/09/19 10:37 Dose: 325 mg Documented by: Alprazolam (Xanax) 2 mg PO Q6H PRN PRN Reason: ANXIETY Last Admin: 12/09/19 21:14 Dose: 2 mg Documented by: Amlodipine Besylate (Norvasc -) 5 mg PO DAILY [facility] Last Admin: 12/09/19 10:05 Dose: 5 mg Documented by: Aspirin (Ecotrin -) 81 mg PO DAILY [facility] Last Admin: 12/09/19 10:03 Dose: 81 mg Documented by: Atorvastatin Calcium (Lipitor -) 20 mg PO HS [facility] Last Admin: 12/09/19 21:07 Dose: 20 mg Documented by: Bacitracin (Bacitracin -) 1 applic TP DAILY [facility] Last Admin: 12/09/19 10:15 Dose: 1 applic Documented by: Calcium Carbonate (Os-Tra 500mg -) 500 mg PO BID [facility] Last Admin: 12/09/19 21:07 Dose: 500 mg Documented by: Clonidine (Catapres -) 0.2 mg PO BID [facility] Last Admin: 12/09/19 21:07 Dose: Not Given Documented by: Docusate Sodium (Colace -) 100 mg PO BID PRN PRN Reason: CONSTIPATION Enoxaparin Sodium (Lovenox -) 40 mg SQ DAILY [facility] Last Admin: 12/09/19 10:06 Dose: 40 mg Documented by: Escitalopram Oxalate (Lexapro -) 10 mg PO DAILY [facility] Last Admin: 12/09/19 10:04 Dose: 10 mg Documented by: Furosemide (Lasix -) 80 mg PO BIDLASIX [facility] Last Admin: 12/10/19 06:30 Dose: 80 mg Documented by: Ceftriaxone Sodium 2 gm/ (Dextrose) 100 mls @ 200 mls/hr IVPB DAILY [facility]; Protocol Last Admin: 12/09/19 10:05 Dose: 200 mls/hr Documented by: Vancomycin HCl (Vancomycin (Pre-Docked)) 1,000 mg in 250 mls @ 166.667 mls/hr IVPB Q12H [facility]; Protocol Last Admin: 12/10/19 02:39 Dose: 166.667 mls/hr Documented by: Insulin Aspart (Novolog Vial Sliding Scale -) 1 vial SQ TIDAC [facility]; Protocol Last Admin: 12/10/19 06:31 Dose: 3 units Documented by: Insulin Aspart (Novolog Mix 70/30 Vial) 32 units SQ BIDAC [facility] Last Admin: 12/10/19 06:30 Dose: 32 units Documented by: Lactobacillus Acidophilus (Bacid -) 1 tab PO DAILY [facility] Last Admin: 12/09/19 10:14 Dose: 1 tab Documented by: Magnesium Hydroxide (Milk Of Magnesia -) 30 ml PO DAILY PRN PRN Reason: CONSTIPATION Metoclopramide HCl (Reglan -) 10 mg PO TIDAC [facility] Last Admin: 12/10/19 06:30 Dose: 10 mg Documented by: Nystatin (Mycostatin Cream -) 1 applic TP BID [facility] Last Admin: 12/09/19 21:08 Dose: 1 applic Documented by: Oxycodone HCl (Roxicodone -) 30 mg PO Q4H PRN PRN Reason: PAIN LEVEL 6-10 Last Admin: 12/10/19 06:29 Dose: 30 mg Documented by: Pantoprazole Sodium (Protonix -) 40 mg PO DAILY [facility] Last Admin: 12/09/19 10:05 Dose: 40 mg Documented by: Polyethylene Glycol (Miralax (For Daily Use) -) 17 gm PO DAILY [facility] Last Admin: 12/09/19 10:04 Dose: 17 gm Documented by: Senna (Senna -) 2 tab PO HS PRN PRN Reason: CONSTIPATION Sodium Chloride ([place] Nasal [place] -) 2 spray NS BID PRN PRN Reason: NASAL CONGESTION Spironolactone (Aldactone -) 50 mg PO DAILY [facility] Last Admin: 12/09/19 10:02 Dose: 50 mg Documented by: - Objective Vital Signs: Vital Signs Temperature 97.8 F 12/10/19 07:29 Pulse Rate 56 L 12/10/19 07:29 Respiratory Rate 20 09/06/20 07:29 Blood Pressure 135/63 12/10/19 07:29 O2 Sat by Pulse Oximetry (%) 100 12/10/19 07:29 Constitutional: Yes: Well Nourished, No Distress, Calm Eyes: Yes: Conjunctiva Clear, EOM Intact HENT: Yes: Atraumatic, Normocephalic Neck: Yes: Supple, Trachea Midline Cardiovascular: Yes: Regular Rate and Rhythm Respiratory: Yes: Regular, CTA Bilaterally Gastrointestinal: Yes: Normal Bowel Sounds, Soft ...Rectal Exam: Yes: Deferred Genitourinary: Yes: WNL Breast(s): Yes: WNL Musculoskeletal: Yes: Muscle Weakness Extremities: Yes: Amputation (right bka, amputation of the left 5th toe) Edema: Yes Edema: LLE: 1+ Integumentary: Yes: Erythema (left lower leg), Other (cellulitis of the left lower leg, open wound of the left plantar heel) Wound/Incision: Yes: Dressing Dry and Intact Neurological: Yes: Alert, Oriented, Unsteady Gait, Weakness ...Motor Strength: LLE (muscle weakness), RLE (muscle weakness) Psychiatric: Yes: Alert, Oriented Labs: CBC, BMP 12/10/19 07:05 INR, PTT INR 1.19 (0.83-1.09) H 12/07/19 12:30 - ....Imaging Other: Report Reviewed (lab data reviewed) Problem List - Problems (1) Abnormal liver function tests Code(s): R94.5 - ABNORMAL RESULTS OF LIVER FUNCTION STUDIES (2) Amputation of right lower extremity below knee Code(s): Z89.511 - ACQUIRED ABSENCE OF RIGHT LEG BELOW KNEE (3) Amputation stump infection Code(s): T87.40 - INFECTION OF AMPUTATION STUMP, UNSPECIFIED EXTREMITY (4) Bilateral pleural effusion Code(s): J90 - PLEURAL EFFUSION, NOT ELSEWHERE CLASSIFIED (5) CHF exacerbation Code(s): I50.9 - HEART FAILURE, UNSPECIFIED Qualifiers: Heart failure type: diastolic Qualified Code(s): I50.33 - Acute on chronic diastolic (congestive) heart failure (6) Cellulitis Code(s): L03.90 - CELLULITIS, UNSPECIFIED Qualifiers: Site of cellulitis: extremity Site of cellulitis of extremity: lower extremity Laterality: left Qualified Code(s): L03.116 - Cellulitis of left lower limb (7) Cellulitis of left leg Code(s): L03.116 - CELLULITIS OF LEFT LOWER LIMB (8) Chest pain Code(s): R07.9 - CHEST PAIN, UNSPECIFIED Qualifiers: Chest pain type: other chest pain Qualified Code(s): R07.89 - Other chest pain (9) Diabetic foot ulcer Code(s): E11.621 - TYPE 2 DIABETES MELLITUS WITH FOOT ULCER; L97.509 - NON- PRESSURE CHRONIC ULCER OTH PRT UNSP FOOT W UNSP SEVERITY Qualifiers: (10) Diastolic heart failure Code(s): I50.30 - UNSPECIFIED DIASTOLIC (CONGESTIVE) HEART FAILURE (11) Hepatic cirrhosis Code(s): K74.60 - UNSPECIFIED CIRRHOSIS OF LIVER (12) Hepatitis A infection Code(s): B15.9 - HEPATITIS A WITHOUT HEPATIC COMA (13) Hypoxemia requiring supplemental oxygen Code(s): R09.02 - HYPOXEMIA; Z99.81 - DEPENDENCE ON SUPPLEMENTAL OXYGEN (14) MRSA (methicillin resistant staph aureus) culture positive Code(s): Z22.322 - CARRIER OR SUSPECTED CARRIER OF METHICILLIN RESIS STAPH (15) Opiate overdose Code(s): T40.601A - POISONING BY UNSP NARCOTICS, ACCIDENTAL, INIT Qualifiers: Encounter type: initial encounter Injury intent: undetermined intent Qualified Code(s): T40.604A - Poisoning by unspecified narcotics, undetermined, initial encounter (16) Osteomyelitis Code(s): M86.9 - OSTEOMYELITIS, UNSPECIFIED Qualifiers: Osteomyelitis type: unspecified type Osteomyelitis location: tibia Laterality: right Qualified Code(s): M86.9 - Osteomyelitis, unspecified (17) Osteomyelitis of right lower extremity Code(s): M86.9 - OSTEOMYELITIS, UNSPECIFIED (18) Rib pain on right side Code(s): R07.81 - PLEURODYNIA (19) Thrombocytopenia Code(s): D69.6 - THROMBOCYTOPENIA, UNSPECIFIED (20) Anxiety Code(s): F41.9 - ANXIETY DISORDER, UNSPECIFIED (21) Chronic foot ulcer Code(s): L97.509 - NON-PRESSURE CHRONIC ULCER OTH PRT UNSP FOOT W UNSP SEVERITY Qualifiers: (22) Chronic pain Code(s): G89.29 - OTHER CHRONIC PAIN Qualifiers: Chronic pain type: other chronic pain Qualified Code(s): G89.29 - Other chronic pain (23) Diabetes mellitus Code(s): E11.9 - TYPE 2 DIABETES MELLITUS WITHOUT COMPLICATIONS Qualifiers: Diabetes mellitus type: type 2 Diabetes mellitus [facility] insulin use: unspecified [facility] insulin use status Diabetes mellitus complication status: with other specified complication Qualified Code(s): E11.69 - Type 2 diabetes mellitus with other specified complication (24) HLD (hyperlipidemia) Code(s): E78.5 - HYPERLIPIDEMIA, UNSPECIFIED (25) HTN (hypertension) Code(s): I10 - ESSENTIAL (PRIMARY) HYPERTENSION (26) Hepatitis C Code(s): B19.20 - UNSPECIFIED VIRAL HEPATITIS C WITHOUT HEPATIC COMA (27) Methadone dependence Code(s): F11.20 - OPIOID DEPENDENCE, UNCOMPLICATED (28) Opioid dependence on agonist therapy Code(s): F11.20 - OPIOID DEPENDENCE, UNCOMPLICATED (29) PTSD (post-traumatic stress disorder) Code(s): F43.10 - POST-TRAUMATIC STRESS DISORDER, UNSPECIFIED (30) Peripheral neuropathy Code(s): G62.9 - POLYNEUROPATHY, UNSPECIFIED Qualifiers: Assessment/Plan Assessment/plan: acute cellulitis of the left lower leg, open wound of the left plantar heel, vascular ulcer of the right stump, DM, HTN, anxiety and depres mahi, s/p right BKA, s/p amputation of the left 5th toe, s/p recent treatment for osteomyelitis, MRSA; IV Ceftriaxone and Vancomycin for celluliltis of the left lower leg; SQ Lovenox and oral pantoprazole for DVT/GI prophylaxis; topical bacitracin ointment for open wound of the left plantar heel, topical nystatin cream for fungal rash; amlodipine clonidine and spironolactone for HTN; oral furosemide for diastolic CHF; atorvastatin for HLD; alprazolam for anxiety; oxycodone for chronic low back pain, physical therapy for deconditioning; sertraline for anxiety and depression, Novolog 70/30 mix and regular insulin coverage for DM.
[2019-12-10 08:38] LABS: ALBUMIN 3.6 g/dl (3.4-5.0); BILIRUBIN,TOTAL 0.9 mg/dL (0.2-1); BLOOD UREA NITROGEN 20.7 mg/dL (7-18); CALCIUM 8.7 mg/dL (8.5-10.1); CREATININE 1.3 mg/dL (0.55-1.3); POTASSIUM 4.1 mmol/L (3.5-5.1); TOT PROT 7.4 g/dl (6.4-8.2)
--- NOTE | 2019-12-10 08:53 | PN ---
Progress Note (short form) - Note Progress Note: much less leg pain Vital Signs Period Temp Pulse Resp BP Sys/Cross Pulse Ox Last 24 Hr 97.5 F-98.7 F 52-60 20-20 114-149/54-83 98-100 cor-rrr lungs clear abd soft,nt ext LLE with erythema but much less tender BKA site unchanged CBC, BMP 12/10/19 07:05 12/10/19 07:05 Microbiology 12/07/19 12:30 Blood - Peripheral Venous Blood Culture - Preliminary NO GROWTH OBTAINED AFTER 48 HOURS, INCUBATION TO CONTINUE FOR 3 DAYS. 12/07/19 12:30 Blood - Peripheral Venous Blood Culture - Preliminary NO GROWTH OBTAINED AFTER 48 HOURS, INCUBATION TO CONTINUE FOR 3 DAYS. a/p cellulitis LLE- continue vanco/ceftriaxone- cllinically improving prior history of MRSA Diabetes norman- resolved- contact isolation
[2019-12-10] MEDS ORDERED: PT OWN MED DRAWER 7, Y5N ONE (09:48)
[2019-12-10] MEDS ORDERED: DEXTROSE 5%-WATER 100 ML IVPB ONE (09:49)
[2019-12-10] MEDS: LACTOBACILLUS ACIDOPHILUS 1 TABLET PO SCH (09:59)
[2019-12-10] MEDS: SPIRONOLACTONE 25 MG TABLET PO SCH (09:59)
[2019-12-10] MEDS: cloNIDine HCL 0.1 MG TABLET PO SCH ×2 (09:59→21:23)
[2019-12-10] MEDS: CALCIUM (OYSTER SHELL) 500 MG TABLET (FP) PO SCH ×2 (10:00→21:24)
[2019-12-10] MEDS: POLYETHYLENE GLYCOL 3350 119 GM BTL PO SCH ×2 (10:00→10:17)
[2019-12-10] MEDS: ASPIRIN COATED 81 MG TABLET.EC PO SCH (10:00)
[2019-12-10] MEDS: PANTOPRAZOLE 40 MG TABLET PO SCH (10:01)
[2019-12-10] MEDS: amLODIPine BESYLATE 5 MG TABLET (FP) PO SCH (10:01)
[2019-12-10] MEDS: SERTRALINE HCL 50 MG TABLET (FP) PO SCH (10:04)
[2019-12-10] MEDS: CEFTRIAXONE 2 GM in DEXTROSE 5%-WATER 100 ML IVPB SCH (10:04)
[2019-12-10] MEDS: BACITRACIN 15 GM TUBE TOPICAL OINTMENT TP SCH (10:05)
[2019-12-10] MEDS: ENOXAPARIN NA (PORCINE) 40 MG/0.4 ML DISP.SYRIN SQ SCH (10:05)
[2019-12-10] MEDS: NYSTATIN 100,000 UNIT/GM TOPICAL CREAM 15 GM TUBE TP SCH ×2 (10:06→21:24)
[2019-12-10] MEDS: ALPRAZolam 1 MG TABLET PO PRN ×2 (10:24→21:23)
[2019-12-10] MEDS: ATORVASTATIN CA 20 MG TABLET (FP) PO SCH (21:22)
[2019-12-11] MEDS: VANCOMYCIN 1 GRAM (PRE-DOCKED) 1,000 MG/250 ML BAG IVPB SCH ×2 (01:49→14:22)
[2019-12-11] MEDS: FUROSEMIDE 40 MG TABLET (FP) PO SCH ×2 (06:46→14:18)
[2019-12-11] MEDS: INSULIN (NOVOLOG MIX 70/30) 100 UNITS/ML MDV SQ SCH ×2 (06:46→17:25)
[2019-12-11] MEDS: INSULIN SLIDING SCALE (NOVOLOG) 1 VIAL SQ SCH ×3 (06:47→17:25)
[2019-12-11] MEDS: METOCLOPRAMIDE HCL 10 MG TABLET (FP) PO SCH ×3 (06:47→17:31)
[2019-12-11] MEDS: ALPRAZolam 1 MG TABLET PO PRN ×3 (06:52→21:33)
[2019-12-11] MEDS: oxyCODONE HCL 5 MG TABLET PO PRN ×3 (06:52→21:34)
--- NOTE | 2019-12-11 08:09 | PN ---
Progress Note (short form) - Note Progress Note: leg pain resolved Vital Signs Period Temp Pulse Resp BP Sys/Cross Pulse Ox Last 24 Hr 97.9 F-98.9 F 56-92 18-20 128-144/58-75 98-99 cor-rrr lungs clear abd soft,nt ext erythema resolving, no pain LLE small open ulcer on plantar surface of LLE- no drainage, shallow CBC, BMP 12/10/19 07:05 12/10/19 07:05 Microbiology 12/07/19 12:30 Blood - Peripheral Venous Blood Culture - Preliminary NO GROWTH OBTAINED AFTER 72 HOURS, INCUBATION TO CONTINUE FOR 2 DAYS. 12/07/19 12:30 Blood - Peripheral Venous Blood Culture - Preliminary NO GROWTH OBTAINED AFTER 72 HOURS, INCUBATION TO CONTINUE FOR 2 DAYS. a/p cellulitis LLE- continue vanco/ceftriaxone- cllinically improving- switch to po clindamycin 300 tid for one week when ready for discharge should f/u at wound care center prior history of MRSA Diabetes norman- resolved- contact isolation should f/u with wound care center- he states he has appt to see dr Chapman for second opinion of bka stump- ?revision please call back if needed
[2019-12-11 08:38] LABS: BASO % 0.3 % (0-2.0); EOS % 1.1 % (0-4.5); HEMOGLOBIN 14.9 GM/dL (11.7-16.9); LYMPH % 22.8 % (8-40); MCH 28.1 pg (25.7-33.7); MEAN CELL VOLUME 85.1 fl (80-96); MEAN PLT VOLUME 9.5 fl (7.5-11.1); MONO % 6.8 % (3.8-10.2); PLATELET COUNT 152 K/MM3 (134-434); RBC 5.29 M/mm3 (4.00-5.60); RDW 14.1 % (11.9-15.9); WHITE BLOOD COUNT 9.6 K/mm3 (4.0-10.0)
[2019-12-11 09:02] LABS: ALBUMIN 3.6 g/dl (3.4-5.0); BILIRUBIN,TOTAL 0.6 mg/dL (0.2-1); BLOOD UREA NITROGEN 21.7 mg/dL (7-18); CALCIUM 8.6 mg/dL (8.5-10.1); CREATININE 1.3 mg/dL (0.55-1.3); POTASSIUM 3.8 mmol/L (3.5-5.1); TOT PROT 7.7 g/dl (6.4-8.2)
--- NOTE | 2019-12-11 09:03 | PN ---
Progress Note, Physician Chief Complaint: Patient seen and examined at the bedside, no acute events from last night, afebrile, edema and erythema gradually subsiding. History of Present Illness: This 54 yr old w/m with PMH of DM, right BKA, amputation of the left 5th toe, HTN, HLD, s/p recent treatment for osteomyelitis admitted via ER with an acute cellulitis of the left lower leg, open wound of the left plantar heel, prerenal azotemia and thrombocytopenia. - Current Medication List Current Medications: Active Medications Acetaminophen (Tylenol -) 325 mg PO Q6H PRN PRN Reason: PAIN LEVEL 6-10 Last Admin: 12/09/19 10:37 Dose: 325 mg Documented by: Alprazolam (Xanax) 2 mg PO Q6H PRN PRN Reason: ANXIETY Last Admin: 12/11/19 06:52 Dose: 2 mg Documented by: Amlodipine Besylate (Norvasc -) 5 mg PO DAILY [facility] Last Admin: 12/10/19 10:01 Dose: 5 mg Documented by: Aspirin (Ecotrin -) 81 mg PO DAILY [facility] Last Admin: 12/10/19 10:00 Dose: 81 mg Documented by: Atorvastatin Calcium (Lipitor -) 20 mg PO HS [facility] Last Admin: 12/10/19 21:22 Dose: 20 mg Documented by: Bacitracin (Bacitracin -) 1 applic TP DAILY [facility] Last Admin: 12/10/19 10:05 Dose: 1 applic Documented by: Calcium Carbonate (Os-Tra 500mg -) 500 mg PO BID [facility] Last Admin: 12/10/19 21:24 Dose: 500 mg Documented by: Clonidine (Catapres -) 0.2 mg PO BID [facility] Last Admin: 12/10/19 21:23 Dose: Not Given Documented by: Docusate Sodium (Colace -) 100 mg PO BID PRN PRN Reason: CONSTIPATION Enoxaparin Sodium (Lovenox -) 40 mg SQ DAILY [facility] Last Admin: 12/10/19 10:05 Dose: 40 mg Documented by: Furosemide (Lasix -) 80 mg PO BIDLASIX [facility] Last Admin: 12/11/19 06:46 Dose: 80 mg Documented by: Ceftriaxone Sodium 2 gm/ (Dextrose) 100 mls @ 200 mls/hr IVPB DAILY [facility]; Prot ocol Last Admin: 12/10/19 10:04 Dose: 200 mls/hr Documented by: Vancomycin HCl (Vancomycin (Pre-Docked)) 1,000 mg in 250 mls @ 166.667 mls/hr IVPB Q12H [facility]; Protocol Last Admin: 12/11/19 01:49 Dose: 166.667 mls/hr Documented by: Insulin Aspart (Novolog Vial Sliding Scale -) 1 vial SQ TIDAC [facility]; Protocol Last Admin: 12/11/19 06:47 Dose: 3 units Documented by: Insulin Aspart (Novolog Mix 70/30 Vial) 32 units SQ BIDAC [facility] Last Admin: 12/11/19 06:46 Dose: 32 units Documented by: Lactobacillus Acidophilus (Bacid -) 1 tab PO DAILY [facility] Last Admin: 12/10/19 09:59 Dose: 1 tab Documented by: Magnesium Hydroxide (Milk Of Magnesia -) 30 ml PO DAILY PRN PRN Reason: CONSTIPATION Metoclopramide HCl (Reglan -) 10 mg PO TIDAC [facility] Last Admin: 12/11/19 06:47 Dose: 10 mg Documented by: Nystatin (Mycostatin Cream -) 1 applic TP BID [facility] Last Admin: 12/10/19 21:24 Dose: 1 applic Documented by: Oxycodone HCl (Roxicodone -) 30 mg PO Q4H PRN PRN Reason: PAIN LEVEL 6-10 Last Admin: 12/11/19 06:52 Dose: 30 mg Documented by: Pantoprazole Sodium (Protonix -) 40 mg PO DAILY [facility] Last Admin: 12/10/19 10:01 Dose: 40 mg Documented by: Polyethylene Glycol (Miralax (For Daily Use) -) 17 gm PO DAILY [facility] Last Admin: 12/10/19 10:17 Dose: Not Given Documented by: Senna (Senna -) 2 tab PO HS PRN PRN Reason: CONSTIPATION Sertraline HCl (Zoloft -) 100 mg PO DAILY [facility] Last Admin: 12/10/19 10:04 Dose: 100 mg Documented by: Sodium Chloride ([place] Nasal [place] -) 2 spray NS BID PRN PRN Reason: NASAL CONGESTION Spironolactone (Aldactone -) 50 mg PO DAILY [facility] Last Admin: 12/10/19 09:59 Dose: 50 mg Documented by: - Objective Vital Signs: Vital Signs Temperature 98.9 F 12/11/19 05:00 Pulse Rate 65 12/11/19 05:00 Respiratory Rate 18 12/11/19 05:00 Blood Pressure 144/73 12/11/19 05:00 O2 Sat by Pulse Oximetry (%) 98 12/11/19 05:00 Constitutional: Yes: Well Nourished, No Distress, Calm Eyes: Yes: Conjunctiva Clear, EOM Intact HENT: Yes: Atraumatic, Normocephalic Neck: Yes: Supple, Trachea Midline Cardiovascular: Yes: Regular Rate and Rhythm Respiratory: Yes: Regular, CTA Bilaterally Gastrointestinal: Yes: Normal Bowel Sounds, Soft ...Rectal Exam: Yes: Deferred Genitourinary: Yes: WNL Breast(s): Yes: WNL Musculoskeletal: Yes: Muscle Weakness Extremities: Yes: Erythema (left lower leg) Edema: Yes Edema: LLE: 1+ Peripheral Pulses WNL: Yes Integumentary: Yes: Erythema (left lower leg), Other (open wound of the left lower leg) Neurological: Yes: Alert, Oriented, Unsteady Gait, Weakness ...Motor Strength: LLE (muscle weakness), RLE (muscle weakness) Psychiatric: Yes: Alert, Oriented Labs: CBC, BMP 12/11/19 07:25 INR, PTT INR 1.19 (0.83-1.09) H 12/07/19 12:30 - ....Imaging Other: Report Reviewed (lab data reviewed) Problem List - Problems (1) Abnormal liver function tests Code(s): R94.5 - ABNORMAL RESULTS OF LIVER FUNCTION STUDIES (2) Amputation of right lower extremity below knee Code(s): Z89.511 - ACQUIRED ABSENCE OF RIGHT LEG BELOW KNEE (3) Amputation stump infection Code(s): T87.40 - INFECTION OF AMPUTATION STUMP, UNSPECIFIED EXTREMITY (4) Bilateral pleural effusion Code(s): J90 - PLEURAL EFFUSION, NOT ELSEWHERE CLASSIFIED (5) CHF exacerbation Code(s): I50.9 - HEART FAILURE, UNSPECIFIED Qualifiers: Heart failure type: diastolic Qualified Code(s): I50.33 - Acute on chronic diastolic (congestive) heart failure (6) Cellulitis Code(s): L03.90 - CELLULITIS, UNSPECIFIED Qualifiers: Site of cellulitis: extremity Site of cellulitis of extremity: lower extremity Laterality: left Qualified Code(s): L03.116 - Cellulitis of left lower limb (7) Cellulitis of left leg Code(s): L03.116 - CELLULITIS OF LEFT LOWER LIMB (8) Chest pain Code(s): R07.9 - CHEST PAIN, UNSPECIFIED Qualifiers: Chest pain type: other chest pain Qualified Code(s): R07.89 - Other chest pain (9) Diabetic foot ulcer Code(s): E11.621 - TYPE 2 DIABETES MELLITUS WITH FOOT ULCER; L97.509 - NON- PRESSURE CHRONIC ULCER OTH PRT UNSP FOOT W UNSP SEVERITY Qualifiers: (10) Diastolic heart failure Code(s): I50.30 - UNSPECIFIED DIASTOLIC (CONGESTIVE) HEART FAILURE (11) Hepatic cirrhosis Code(s): K74.60 - UNSPECIFIED CIRRHOSIS OF LIVER (12) Hepatitis A infection Code(s): B15.9 - HEPATITIS A WITHOUT HEPATIC COMA (13) Hypoxemia requiring supplemental oxygen Code(s): R09.02 - HYPOXEMIA; Z99.81 - DEPENDENCE ON SUPPLEMENTAL OXYGEN (14) MRSA (methicillin resistant staph aureus) culture positive Code(s): Z22.322 - CARRIER OR SUSPECTED CARRIER OF METHICILLIN RESIS STAPH (15) Opiate overdose Code(s): T40.601A - POISONING BY UNSP NARCOTICS, ACCIDENTAL, INIT Qualifiers: Encounter type: initial encounter Injury intent: undetermined intent Qualified Code(s): T40.604A - Poisoning by unspecified narcotics, undetermined, initial encounter (16) Osteomyelitis Code(s): M86.9 - OSTEOMYELITIS, UNSPECIFIED Qualifiers: Osteomyelitis type: unspecified type Osteomyelitis location: tibia Lat erality: right Qualified Code(s): M86.9 - Osteomyelitis, unspecified (17) Osteomyelitis of right lower extremity Code(s): M86.9 - OSTEOMYELITIS, UNSPECIFIED (18) Rib pain on right side Code(s): R07.81 - PLEURODYNIA (19) Thrombocytopenia Code(s): D69.6 - THROMBOCYTOPENIA, UNSPECIFIED (20) Anxiety Code(s): F41.9 - ANXIETY DISORDER, UNSPECIFIED (21) Chronic foot ulcer Code(s): L97.509 - NON-PRESSURE CHRONIC ULCER OTH PRT UNSP FOOT W UNSP SEVERITY Qualifiers: (22) Chronic pain Code(s): G89.29 - OTHER CHRONIC PAIN Qualifiers: Chronic pain type: other chronic pain Qualified Code(s): G89.29 - Other chronic pain (23) Diabetes mellitus Code(s): E11.9 - TYPE 2 DIABETES MELLITUS WITHOUT COMPLICATIONS Qualifiers: Diabetes mellitus type: type 2 Diabetes mellitus custodial insulin use: unspecified 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 use 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 Diabetes mellitus complication status: with other specified complication Qualified Code(s): E11.69 - Type 2 diabetes mellitus with other specified complication (24) HLD (hyperlipidemia) Code(s): E78.5 - HYPERLIPIDEMIA, UNSPECIFIED (25) HTN (hypertension) Code(s): I10 - ESSENTIAL (PRIMARY) HYPERTENSION (26) Hepatitis C Code(s): B19.20 - UNSPECIFIED VIRAL HEPATITIS C WITHOUT HEPATIC COMA (27) Methadone dependence Code(s): F11.20 - OPIOID DEPENDENCE, UNCOMPLICATED (28) Opioid dependence on agonist therapy Code(s): F11.20 - OPIOID DEPENDENCE, UNCOMPLICATED (29) PTSD (post-traumatic stress disorder) Code(s): F43.10 - POST-TRAUMATIC STRESS DISORDER, UNSPECIFIED (30) Peripheral neuropathy Code(s): G62.9 - POLYNEUROPATHY, UNSPECIFIED Qualifiers: Assessment/Plan Assessment/plan: IV Ceftriaxone and Vancomycin for cellulitis of the left lower leg; SQ Lovenox and oral pantoprazole for DVT/GI prophylaxis; atorvastatin for HLD; amlodipine clonidine spironolactone for HTN, oral furosemide for diastolic CHF; Novolog 70/30 mix and regular insulin coverage for DM; alprazolam for anxiety; sertraline for depression and anxiety; oxycodone for chronic low back pain; physical therapy for deconditioning; topical bacitracin ointment for open wound of the left plantar heel.
[2019-12-11] MEDS ORDERED: DEXTROSE 5%-WATER 100 ML IVPB ONE (09:30)
[2019-12-11] MEDS: SPIRONOLACTONE 25 MG TABLET PO SCH (09:36)
[2019-12-11] MEDS: CALCIUM (OYSTER SHELL) 500 MG TABLET (FP) PO SCH ×2 (09:36→21:33)
[2019-12-11] MEDS: LACTOBACILLUS ACIDOPHILUS 1 TABLET PO SCH (09:36)
[2019-12-11] MEDS: ASPIRIN COATED 81 MG TABLET.EC PO SCH (09:36)
[2019-12-11] MEDS: PANTOPRAZOLE 40 MG TABLET PO SCH (09:36)
[2019-12-11] MEDS: amLODIPine BESYLATE 5 MG TABLET (FP) PO SCH (09:37)
[2019-12-11] MEDS: SERTRALINE HCL 50 MG TABLET (FP) PO SCH (09:37)
[2019-12-11] MEDS: ENOXAPARIN NA (PORCINE) 40 MG/0.4 ML DISP.SYRIN SQ SCH (09:38)
[2019-12-11] MEDS: cloNIDine HCL 0.1 MG TABLET PO SCH ×2 (09:38→21:33)
[2019-12-11] MEDS: POLYETHYLENE GLYCOL 3350 119 GM BTL PO SCH ×2 (09:38→09:42)
[2019-12-11] MEDS: BACITRACIN 15 GM TUBE TOPICAL OINTMENT TP SCH (09:39)
[2019-12-11] MEDS: NYSTATIN 100,000 UNIT/GM TOPICAL CREAM 15 GM TUBE TP SCH ×2 (09:39→21:33)
[2019-12-11] MEDS: CEFTRIAXONE 2 GM in DEXTROSE 5%-WATER 100 ML IVPB SCH (09:39)
[2019-12-11] MEDS: VANCOMYCIN HCL 1,250 MG in DEXTROSE 5%-WATER - 250 ML IVPB SCH (14:21)
[2019-12-11] MEDS: ATORVASTATIN CA 20 MG TABLET (FP) PO SCH (21:33)
[2019-12-12] MEDS: VANCOMYCIN 1 GRAM (PRE-DOCKED) 1,000 MG/250 ML BAG IVPB SCH (01:36)
--- NOTE | 2019-12-12 04:40 | DS ---
Physical Examination Vital Signs: Vital Signs Temperature 98.7 F 12/11/19 20:53 Pulse Rate 71 12/11/19 20:53 Respiratory Rate 18 12/11/19 20:53 Blood Pressure 147/87 12/11/19 20:53 O2 Sat by Pulse Oximetry (%) 96 12/11/19 20:59 Constitutional: Yes: Well Nourished, No Distress, Calm Eyes: Yes: Conjunctiva Clear, EOM Intact HENT: Yes: Atraumatic, Normocephalic Neck: Yes: Supple, Trachea Midline Cardiovascular: Yes: Regular Rate and Rhythm Respiratory: Yes: Regular, CTA Bilaterally Gastrointestinal: Yes: Normal Bowel Sounds, Soft ...Rectal Exam: Yes: Deferred Renal/: Yes: WNL Breast(s): Yes: WNL Musculoskeletal: Yes: Muscle Weakness Extremities: Yes: Amputation (right bka, left 5th toe), Erythema (left lower leg) Edema: Yes Edema: LLE: 1+ Peripheral Pulses WNL: Yes Integumentary: Yes: Erythema (left lower leg) Neurological: Yes: Alert, Oriented ...Motor Strength: LLE (muscle weakness), RLE (muscle weakness) Psychiatric: Yes: Alert, Oriented Labs: CBC, BMP 12/11/19 07:25 12/11/19 07:25 Discharge Summary Problems reviewed: Yes Reason For Visit: CELLULITIS OF LEFT LOWER EXTREMITY Current Active Problems Cellulitis (Acute) Condition: Improved - Instructions Diet, Activity, Other Instructions: Continue present meds. Novolog 70/30 mix 32 units SQ twice daily. Activity as tolerated. Follow up with Dr. Kraft within one week. Follow up with wound care clinic within one week. Total time spent over 30 minutes. Referrals: Allen Negor [Primary Care Provider] - - Home Medications Comprehensive Discharge Medication List: Ambulatory Orders Aspirin [ASA -] 81 mg PO DAILY 12/26/15 oxyCODONE HCL [Oxycodone HCl] 30 mg PO Q3H PRN MDD 180 10/20/17 Calcium 500Mg/Vit-D 200 Units [Os-Tra 500+D -] 1 tab PO BID tab 10/22/17 Magnesium Hydroxide [Milk of Magnesia] 30 ml PO PRN PRN 08/19/18 Insulin Sliding Scale [Novolog Vial Sliding Scale -] 1 vial SQ TIDAC units 01/03/19 Acetaminophen [Tylenol .Regular Strength -] 325 mg PO Q6H PRN tablet 08/07/19 Alprazolam [Xanax] 2 mg PO Q6H PRN tablet 08/07/19 Amlodipine Besylate [Norvasc -] 5 mg PO DAILY tablet 08/07/19 Atorvastatin Ca [Lipitor] 20 mg PO HS tablet 08/07/19 Escitalopram Oxalate [Lexapro -] 10 mg PO DAILY tablet 08/07/19 Insulin (Novolog 70/30) [Novolog Mix 70/30 Vial -] 30 units SQ BIDAC units 08/07/19 Lactobacillus Acidophilus [Bacid -] 1 tab PO DAILY tab 08/07/19 Metoclopramide HCl [Reglan -] 10 mg PO TIDAC tablet 08/07/19 Nystatin Cream [Mycostatin Cream -] 1 applic TP BID applic 08/07/19 Sennosides [Senna -] 2 tab PO HS PRN tablet 08/07/19 Sodium Chloride Nasal [place] [[place] Nasal [place] -] 2 spray NS Q8H PRN spray 08/07/19 cloNIDine HCL [Catapres -] 0.2 mg PO BID tablet 08/07/19 oxyCODONE HCL [Roxicodone -] 30 mg PO Q3H PRN tablet 08/07/19 Furosemide [Lasix -] 80 mg PO BID 08/17/19 Doxycycline Hyclate [Vibramycin -] 100 mg PO BID 30 Days #60 cap 09/28/19 Becaplermin [Regranex] 12/08/19 Docusate Sodium [Colace -] 100 mg PO PRN PRN 12/08/19 Metamucil (Sugar-Free) - 12/08/19 Polyethylene Glycol 3350 [Miralax 119 gm Btl -] 17 gm PO PRN PRN 12/08/19 Spironolactone [Aldactone -] 25 mg PO DAILY 12/08/19
[2019-12-12] MEDS ORDERED: CLINDAMYCIN HCL 300 MG CAPSULE PO SCH (06:00)
[2019-12-12] MEDS ORDERED: CLINDAMYCIN HCL 150 MG CAPSULE (FP) PO SCH ×2 (06:22→06:45)
[2019-12-12 06:36] VITALS: TEMP 98.8
[2019-12-12] MEDS: INSULIN SLIDING SCALE (NOVOLOG) 1 VIAL SQ SCH ×2 (06:37→12:09)
[2019-12-12] MEDS: INSULIN (NOVOLOG MIX 70/30) 100 UNITS/ML MDV SQ SCH (06:37)
[2019-12-12] MEDS: METOCLOPRAMIDE HCL 10 MG TABLET (FP) PO SCH (06:40)
[2019-12-12] MEDS: FUROSEMIDE 40 MG TABLET (FP) PO SCH (06:40)
[2019-12-12 08:44] LABS: BASO % 0.3 % (0-2.0); EOS % 0.9 % (0-4.5); HEMATOCRIT 47.2 % (35.4-49); HEMOGLOBIN 15.7 GM/dL (11.7-16.9); LYMPH % 22.5 % (8-40); MCH 28.3 pg (25.7-33.7); MCHC 33.3 g/dl (32.0-35.9); MEAN CELL VOLUME 84.9 fl (80-96); MEAN PLT VOLUME 9.6 fl (7.5-11.1); MONO % 7.5 % (3.8-10.2); NEUT % 68.8 % (42.8-82.8); PLATELET COUNT 167 K/MM3 (134-434); RBC 5.55 M/mm3 (4.00-5.60); RDW 14.4 % (11.9-15.9); WHITE BLOOD COUNT 12.1 K/mm3 (4.0-10.0)
[2019-12-12 09:02] LABS: ALBUMIN 3.8 g/dl (3.4-5.0); BILIRUBIN,TOTAL 0.8 mg/dL (0.2-1); CREATININE 1.3 mg/dL (0.55-1.3); POTASSIUM 3.8 mmol/L (3.5-5.1); TOT PROT 7.9 g/dl (6.4-8.2)
[2019-12-12] MEDS ORDERED: DEXTROSE 5%-WATER 100 ML IVPB ONE (09:33)
[2019-12-12] MEDS: ASPIRIN COATED 81 MG TABLET.EC PO SCH (09:39)
[2019-12-12] MEDS: SPIRONOLACTONE 25 MG TABLET PO SCH (09:39)
[2019-12-12] MEDS: amLODIPine BESYLATE 5 MG TABLET (FP) PO SCH (09:39)
[2019-12-12] MEDS: PANTOPRAZOLE 40 MG TABLET PO SCH (09:40)
[2019-12-12] MEDS: oxyCODONE HCL 5 MG TABLET PO PRN (09:40)
[2019-12-12] MEDS: CALCIUM (OYSTER SHELL) 500 MG TABLET (FP) PO SCH (09:40)
[2019-12-12] MEDS: ALPRAZolam 1 MG TABLET PO PRN (09:41)
[2019-12-12] MEDS: LACTOBACILLUS ACIDOPHILUS 1 TABLET PO SCH (09:41)
[2019-12-12] MEDS: ENOXAPARIN NA (PORCINE) 40 MG/0.4 ML DISP.SYRIN SQ SCH (09:42)
[2019-12-12] MEDS: cloNIDine HCL 0.1 MG TABLET PO SCH (09:42)
[2019-12-12] MEDS: SERTRALINE HCL 50 MG TABLET (FP) PO SCH (09:42)
[2019-12-12] MEDS: BACITRACIN 15 GM TUBE TOPICAL OINTMENT TP SCH (09:43)
[2019-12-12] MEDS: NYSTATIN 100,000 UNIT/GM TOPICAL CREAM 15 GM TUBE TP SCH (09:44)
[2019-12-12] MEDS: CEFTRIAXONE 2 GM in DEXTROSE 5%-WATER 100 ML IVPB SCH (09:46)
[2019-12-12] MEDS: POLYETHYLENE GLYCOL 3350 119 GM BTL PO SCH (09:48)
--- NOTE | 2019-12-12 11:17 | EKG ---
Test Reason : Blood Pressure : / mmHG Vent. Rate : 063 BPM Atrial Rate : 063 BPM P-R Int : 198 ms QRS Dur : 080 ms QT Int : 390 ms P-R-T Axes : 013 007 017 degrees QTc Int : 399 ms NORMAL SINUS RHYTHM NORMAL ECG WHEN COMPARED WITH ECG OF 03-AUG-2019 13:34, NO SIGNIFICANT CHANGE WAS FOUND Confirmed by MD JERRICA, YOSELYN ([id number]) on 12/12/2019 11:16:47 AM Referred By: Confirmed By:YOSELYN BECERRIL MD
[2019-12-12] MEDS ORDERED: INSULIN (NOVOLOG) ASPART 100 UNITS/ML 10ML VIAL ONE (12:07)
[2019-12-12 12:48] VITALS: BP 131/54; PULSE 80
== END 2019-12-12 13:50 | disposition home health service (06) | DRG 383 ==
LOC: JER 10:22 → JERBED 17:18 → J8W 12-08 05:02
PROVIDERS: ADMIT Internal Medicine; ATTEND Internal Medicine
DX: L03.116 Cellulitis of left lower limb (principal); I11.0 Hypertensive heart disease with heart failure; I25.10 Atherosclerotic heart disease of native coronary artery without angina pectoris; E78.5 Hyperlipidemia, unspecified; Z89.511 Acquired absence of right leg below knee; F41.8 Other specified anxiety disorders; K59.00 Constipation, unspecified; M21.372 Foot drop, left foot; M86.9 Osteomyelitis, unspecified; N17.9 Acute kidney failure, unspecified; D69.6 Thrombocytopenia, unspecified; E11.69 Type 2 diabetes mellitus with other specified complication; E11.621 Type 2 diabetes mellitus with foot ulcer; I50.33 Acute on chronic diastolic (congestive) heart failure; E66.9 Obesity, unspecified; Z68.35 Body mass index [BMI] 35.0-35.9, adult
CPT/HCPCS: 36415; 71045-TC-FY; 73700-TC-RT; 80053; 82962; 83036; 85025; 85610; 85651; 85730; 87040; 93005; 93010; 93971-TC; 99285-25; G0480; J0131; J0735; U0003

== ENCOUNTER 2020-02-03 16:46 | Inpatient (IN) | payer OTHER ==
[2020-02-03] MEDS ORDERED: VANCOMYCIN HCL IVPB STA (18:06)
[2020-02-03] MEDS ORDERED: WATER IVPB STA (18:06)
[2020-02-03] MEDS ORDERED: DEXTROSE 5% IVPB STA (18:06)
[2020-02-03] MEDS ORDERED: PIPERACILLIN/TAZOB 4.5 GM 4.5 GM in DEXTROSE 5%-WATER 100 ML IVPB ONE (18:14)
[2020-02-03] MEDS ORDERED: SODIUM CHLORIDE 500 ML IV STA (18:57)
[2020-02-03] MEDS ORDERED: PIPERACILLIN/TAZOB 4.5 GM 4.5 GM/100 ML BAG IVPB ONE (19:24)
[2020-02-03 19:25] LABS: BASO % 0.3 % (0-2.0); EOS % 1.5 % (0-4.5); HEMATOCRIT 36.2 % (35.4-49); HEMOGLOBIN 11.9 GM/dL (11.7-16.9); LYMPH % 17.1 % (8-40); MCH 28.4 pg (25.7-33.7); MEAN CELL VOLUME 86.1 fl (80-96); MEAN PLT VOLUME 10.2 fl (7.5-11.1); MONO % 6.5 % (3.8-10.2); NEUT % 74.6 % (42.8-82.8); PLATELET COUNT 105 K/MM3 (134-434); RBC 4.21 M/mm3 (4.00-5.60); RDW 14.6 % (11.9-15.9); WHITE BLOOD COUNT 9.2 K/mm3 (4.0-10.0)
[2020-02-03 19:33] LABS: INR 1.06 (0.83-1.09); PROTHROMBIN TIME (PATIENT) 12.8 SEC (9.7-13.0)
[2020-02-03] MEDS ORDERED: VANCOMYCIN HCL 1,750 MG in DEXTROSE 5%-WATER - 500 ML IVPB STA (19:35)
[2020-02-03 19:36] LABS: ACTIVATED PTT 28.2 SECONDS (25.2-36.5)
[2020-02-03 20:08] LABS: VENOUS BASE EXCESS 2.4 mmol/L (-2-2); VENOUS O2 SATURATION 71.1 % (70-80); VENOUS PCO2 61.8 mmHg (38-52); VENOUS PH 7.306 (7.310-7.410)
[2020-02-03 20:19] LABS: ERYTHROCYTE SEDIMENTATION RATE 20 mm/hr (0-20)
[2020-02-03 20:24] LABS: CHLORIDE 98 mmol/L (98-107); POTASSIUM 4.1 mmol/L (3.5-5.1); SODIUM 136 mmol/L (136-145)
[2020-02-03 20:26] LABS: ALBUMIN 2.9 g/dl (3.4-5.0); ANION GAP 8 MMOL/L (8-16); BLOOD UREA NITROGEN 13.4 mg/dL (7-18); CALCIUM 8.3 mg/dL (8.5-10.1); CO2 30 mmol/L (21-32); GLUCOSE,RANDOM 277 mg/dL (74-106)
[2020-02-03 20:29] LABS: SGOT/AST 54 U/L (15-37); SGPT/ALT 49 U/L (13-61)
[2020-02-03 20:31] LABS: BILIRUBIN,TOTAL 0.3 mg/dL (0.2-1); TOT PROT 5.9 g/dl (6.4-8.2)
[2020-02-03 20:33] LABS: ALK PHOS 103 U/L (45-117)
[2020-02-03] MEDS ORDERED: ONDANSETRON 4 MG/2 ML VIAL IVPUSH ONE (20:54)
[2020-02-03] MEDS ORDERED: SODIUM CHLORIDE 0.9% 500 ML INFUS.BAG IV ONE (23:06)
[2020-02-03] MEDS: NYSTATIN 100000 UNIT/GM TOPICAL OINTMENT 15 GM TUBE TP SCH (23:46)
[2020-02-04] MEDS ORDERED: MAGNESIUM HYDROX 2400MG/30ML ORAL SUSPENSION 30 ML CUP PO PRN (01:18)
[2020-02-04] MEDS ORDERED: ALPRAZolam 2 MG TABLET PO PRN ×2 (01:19→01:21)
[2020-02-04] MEDS ORDERED: oxyCODONE HCL 5 MG TABLET PO PRN (01:26)
[2020-02-04] MEDS ORDERED: INSULIN SLIDING SCALE (NOVOLOG) 1 VIAL SQ SCH (01:30)
[2020-02-04] MEDS ORDERED: SODIUM CHLORIDE NASAL SPRAY 44 ML BOTTLE NS PRN (01:31)
[2020-02-04] MEDS ORDERED: ALPRAZolam 1 MG TABLET ONE (02:31)
[2020-02-04] MEDS ORDERED: oxyCODONE HCL 5 MG TABLET ONE (02:40)
[2020-02-04] MEDS: oxyCODONE HCL 5 MG TABLET PO PRN ×4 (02:48→23:33)
[2020-02-04] MEDS ORDERED: FUROSEMIDE 40 MG TABLET (FP) ONE (06:10)
[2020-02-04] MEDS ORDERED: METOCLOPRAMIDE HCL 10 MG TABLET (FP) PO ONE (06:10)
[2020-02-04] MEDS: FUROSEMIDE 40 MG TABLET (FP) PO SCH ×2 (06:13→15:22)
[2020-02-04] MEDS: METOCLOPRAMIDE HCL 10 MG TABLET (FP) PO SCH ×3 (06:13→17:21)
[2020-02-04] MEDS ORDERED: INSULIN (NOVOLOG MIX 70/30) 100 UNITS/ML MDV SQ SCH (07:00)
[2020-02-04] MEDS: DOCUSATE SODIUM 100 MG CAPSULE (FP) PO PRN (09:15)
[2020-02-04] MEDS: SERTRALINE HCL 50 MG TABLET (FP) PO SCH (09:15)
[2020-02-04] MEDS: ENOXAPARIN NA (PORCINE) 40 MG/0.4 ML DISP.SYRIN SQ SCH (09:15)
[2020-02-04] MEDS: PANTOPRAZOLE 40 MG TABLET PO SCH (09:15)
[2020-02-04] MEDS: CALCIUM (OYSTER SHELL) 500 MG TABLET (FP) PO SCH ×2 (09:16→22:29)
[2020-02-04] MEDS: SPIRONOLACTONE 25 MG TABLET PO SCH (09:16)
[2020-02-04] MEDS: NYSTATIN 100000 UNIT/GM TOPICAL OINTMENT 15 GM TUBE TP SCH ×2 (09:16→22:30)
[2020-02-04] MEDS: ALPRAZolam 1 MG TABLET PO PRN ×3 (09:16→23:33)
[2020-02-04] MEDS: amLODIPine BESYLATE 5 MG TABLET (FP) PO SCH (09:16)
[2020-02-04] MEDS: cloNIDine HCL 0.1 MG TABLET PO SCH ×2 (09:17→22:29)
[2020-02-04] MEDS: ASPIRIN COATED 81 MG TABLET.EC PO SCH (09:17)
[2020-02-04] MEDS: POLYETHYLENE GLYCOL 3350 119 GM BTL PO SCH (09:52)
[2020-02-04] MEDS ORDERED: NYSTATIN 100,000 UNIT/GM TOPICAL CREAM 15 GM TUBE TP SCH (10:00)
[2020-02-04] MEDS ORDERED: INSULIN (NOVOLOG) ASPART 100 UNITS/ML 10ML VIAL ONE (11:11)
[2020-02-04] MEDS: INSULIN SLIDING SCALE (NOVOLOG) 1 VIAL SQ SCH ×2 (11:16→17:18)
[2020-02-04] MEDS: VANCOMYCIN HCL 1,250 MG in DEXTROSE 5%-WATER - 250 ML IVPB SCH (12:56)
[2020-02-04] MEDS ORDERED: PT OWN MED DRAWER 7, Y5N ONE ×2 (15:43→22:19)
[2020-02-04] MEDS: INSULIN (NOVOLOG MIX 70/30) 100 UNITS/ML MDV SQ SCH (17:19)
[2020-02-04] MEDS ORDERED: INSULIN (NOVOLOG MIX 70/30) 100 UNITS/ML MDV SQ ONE (17:53)
[2020-02-04] MEDS: ATORVASTATIN CA 20 MG TABLET (FP) PO SCH (22:29)
[2020-02-05] MEDS: INSULIN SLIDING SCALE (NOVOLOG) 1 VIAL SQ SCH ×4 (00:34→17:11)
[2020-02-05] MEDS: VANCOMYCIN HCL 1,250 MG in DEXTROSE 5%-WATER - 250 ML IVPB SCH ×2 (00:35→12:38)
[2020-02-05] MEDS: INSULIN (NOVOLOG MIX 70/30) 100 UNITS/ML MDV SQ SCH ×2 (06:30→17:11)
[2020-02-05] MEDS: METOCLOPRAMIDE HCL 10 MG TABLET (FP) PO SCH ×3 (06:31→17:11)
[2020-02-05] MEDS: ALPRAZolam 1 MG TABLET PO PRN ×3 (06:31→21:49)
[2020-02-05] MEDS: FUROSEMIDE 40 MG TABLET (FP) PO SCH ×2 (06:31→14:13)
[2020-02-05 08:23] LABS: BASO % 0.4 % (0-2.0); EOS % 2.9 % (0-4.5); HEMATOCRIT 36.6 % (35.4-49); HEMOGLOBIN 12.1 GM/dL (11.7-16.9); LYMPH % 24.7 % (8-40); MEAN CELL VOLUME 84.7 fl (80-96); MEAN PLT VOLUME 9.8 fl (7.5-11.1); MONO % 5.1 % (3.8-10.2); NEUT % 66.9 % (42.8-82.8); PLATELET COUNT 117 K/MM3 (134-434); RBC 4.32 M/mm3 (4.00-5.60); RDW 14.5 % (11.9-15.9); WHITE BLOOD COUNT 5.9 K/mm3 (4.0-10.0)
[2020-02-05 08:40] LABS: POTASSIUM 3.7 mmol/L (3.5-5.1)
[2020-02-05 08:46] LABS: BLOOD UREA NITROGEN 13.2 mg/dL (7-18); CALCIUM 8.3 mg/dL (8.5-10.1)
[2020-02-05 08:47] LABS: ALBUMIN 2.9 g/dl (3.4-5.0)
[2020-02-05 08:50] LABS: CREATININE 0.8 mg/dL (0.55-1.3)
[2020-02-05 08:51] LABS: BILIRUBIN,TOTAL 0.5 mg/dL (0.2-1)
[2020-02-05 10:08] LABS: PH,URINE 7.5 (5.0-8.0); URINE APPEARANCE CLEAR; URINE BILIRUBIN NEGATIVE (NEGATIVE); URINE COLOR YELLOW; URINE GLUCOSE (UA) 3+ (NEGATIVE); URINE KETONE NEGATIVE (NEGATIVE); URINE LEUK ESTERASE NEGATIVE (NEGATIVE); URINE NITRITE NEGATIVE (NEGATIVE); URINE PROTEIN NEGATIVE (NEGATIVE); URINE UROBILINOGEN 0.2 mg/dL (0.2-1.0)
[2020-02-05] MEDS: SERTRALINE HCL 50 MG TABLET (FP) PO SCH (10:28)
[2020-02-05] MEDS: ASPIRIN COATED 81 MG TABLET.EC PO SCH (10:28)
[2020-02-05] MEDS: CALCIUM (OYSTER SHELL) 500 MG TABLET (FP) PO SCH ×2 (10:29→21:47)
[2020-02-05] MEDS: amLODIPine BESYLATE 5 MG TABLET (FP) PO SCH (10:29)
[2020-02-05] MEDS: SPIRONOLACTONE 25 MG TABLET PO SCH (10:29)
[2020-02-05] MEDS: PANTOPRAZOLE 40 MG TABLET PO SCH (10:29)
[2020-02-05] MEDS: cloNIDine HCL 0.1 MG TABLET PO SCH ×2 (10:30→21:47)
[2020-02-05] MEDS: POLYETHYLENE GLYCOL 3350 119 GM BTL PO SCH (10:30)
[2020-02-05] MEDS: NYSTATIN 100000 UNIT/GM TOPICAL OINTMENT 15 GM TUBE TP SCH ×2 (10:30→21:47)
[2020-02-05] MEDS: ENOXAPARIN NA (PORCINE) 40 MG/0.4 ML DISP.SYRIN SQ SCH (10:30)
[2020-02-05] MEDS: oxyCODONE HCL 5 MG TABLET PO PRN ×2 (10:41→17:06)
[2020-02-05] MEDS ORDERED: INSULIN (NOVOLOG) ASPART 100 UNITS/ML 10ML VIAL ONE (11:32)
[2020-02-05] MEDS ORDERED: PT OWN MED DRAWER 7, Y5N ONE (12:21)
[2020-02-05] MEDS: COLLAGENASE CLOSTRIDIUM HIST. 30 GRAMS TUBE TP SCH (14:14)
[2020-02-05] MEDS: ATORVASTATIN CA 20 MG TABLET (FP) PO SCH (21:47)
[2020-02-06] MEDS: VANCOMYCIN HCL 1,250 MG in DEXTROSE 5%-WATER - 250 ML IVPB SCH ×3 (00:19→23:45)
[2020-02-06] MEDS: INSULIN SLIDING SCALE (NOVOLOG) 1 VIAL SQ SCH ×4 (00:26→17:01)
[2020-02-06] MEDS: METOCLOPRAMIDE HCL 10 MG TABLET (FP) PO SCH ×3 (06:11→17:00)
[2020-02-06] MEDS: FUROSEMIDE 40 MG TABLET (FP) PO SCH ×2 (06:11→13:18)
[2020-02-06] MEDS: oxyCODONE HCL 5 MG TABLET PO PRN ×2 (06:11)
[2020-02-06] MEDS: INSULIN (NOVOLOG MIX 70/30) 100 UNITS/ML MDV SQ SCH ×2 (06:16→17:00)
[2020-02-06] MEDS: ALPRAZolam 1 MG TABLET PO PRN ×3 (07:05→21:23)
[2020-02-06 08:23] LABS: BASO % 0.2 % (0-2.0); EOS % 1.8 % (0-4.5); HEMOGLOBIN 12.8 GM/dL (11.7-16.9); MCH 27.7 pg (25.7-33.7); MCHC 32.8 g/dl (32.0-35.9); MEAN CELL VOLUME 84.5 fl (80-96); MEAN PLT VOLUME 10.3 fl (7.5-11.1); MONO % 5.3 % (3.8-10.2); NEUT % 60.7 % (42.8-82.8); PLATELET COUNT 153 K/MM3 (134-434); RBC 4.61 M/mm3 (4.00-5.60); RDW 14.7 % (11.9-15.9); WHITE BLOOD COUNT 7.1 K/mm3 (4.0-10.0)
[2020-02-06 08:24] LABS: POTASSIUM 3.9 mmol/L (3.5-5.1)
[2020-02-06 08:33] LABS: ALBUMIN 3.1 g/dl (3.4-5.0); BILIRUBIN,TOTAL 0.6 mg/dL (0.2-1); BLOOD UREA NITROGEN 14.3 mg/dL (7-18); CALCIUM 8.7 mg/dL (8.5-10.1); TOT PROT 6.6 g/dl (6.4-8.2)
[2020-02-06 08:36] LABS: CREATININE 0.8 mg/dL (0.55-1.3)
[2020-02-06] MEDS: ENOXAPARIN NA (PORCINE) 40 MG/0.4 ML DISP.SYRIN SQ SCH (11:08)
[2020-02-06] MEDS: COLLAGENASE CLOSTRIDIUM HIST. 30 GRAMS TUBE TP SCH (11:15)
[2020-02-06] MEDS: NYSTATIN 100000 UNIT/GM TOPICAL OINTMENT 15 GM TUBE TP SCH ×2 (11:15→21:23)
[2020-02-06] MEDS: SPIRONOLACTONE 25 MG TABLET PO SCH (11:57)
[2020-02-06] MEDS: oxyCODONE HCL 5 MG TABLET PO SCH ×3 (11:58→21:22)
[2020-02-06] MEDS: amLODIPine BESYLATE 5 MG TABLET (FP) PO SCH (11:59)
[2020-02-06] MEDS: SERTRALINE HCL 50 MG TABLET (FP) PO SCH (12:00)
[2020-02-06] MEDS: ASPIRIN COATED 81 MG TABLET.EC PO SCH (12:01)
[2020-02-06] MEDS: CALCIUM (OYSTER SHELL) 500 MG TABLET (FP) PO SCH ×2 (12:02→21:22)
[2020-02-06] MEDS: cloNIDine HCL 0.1 MG TABLET PO SCH ×2 (12:02→21:23)
[2020-02-06] MEDS: ACETAMINOPHEN 325 MG TABLET (FP) PO PRN (12:03)
[2020-02-06] MEDS: PANTOPRAZOLE 40 MG TABLET PO SCH (12:03)
[2020-02-06] MEDS: POLYETHYLENE GLYCOL 3350 119 GM BTL PO SCH (12:06)
[2020-02-06] MEDS: BACITRACIN 15 GM TUBE TOPICAL OINTMENT TP SCH (13:18)
[2020-02-06] MEDS ORDERED: INSULIN (NOVOLOG) ASPART 100 UNITS/ML 10ML VIAL ONE (21:17)
[2020-02-06] MEDS: ATORVASTATIN CA 20 MG TABLET (FP) PO SCH (21:22)
[2020-02-07] MEDS: oxyCODONE HCL 5 MG TABLET PO SCH ×6 (01:01→22:15)
[2020-02-07] MEDS: INSULIN SLIDING SCALE (NOVOLOG) 1 VIAL SQ SCH ×5 (01:08→23:37)
[2020-02-07] MEDS: ALPRAZolam 1 MG TABLET PO PRN ×3 (06:05→21:18)
[2020-02-07] MEDS: FUROSEMIDE 40 MG TABLET (FP) PO SCH ×2 (06:05→13:09)
[2020-02-07] MEDS: METOCLOPRAMIDE HCL 10 MG TABLET (FP) PO SCH ×3 (06:06→16:44)
[2020-02-07] MEDS: INSULIN (NOVOLOG MIX 70/30) 100 UNITS/ML MDV SQ SCH ×2 (06:06→16:48)
[2020-02-07 09:01] LABS: BASO % 0.3 % (0-2.0); EOS % 2.3 % (0-4.5); HEMATOCRIT 39.4 % (35.4-49); HEMOGLOBIN 12.9 GM/dL (11.7-16.9); LYMPH % 29.3 % (8-40); MCH 27.9 pg (25.7-33.7); MCHC 32.7 g/dl (32.0-35.9); MEAN CELL VOLUME 85.2 fl (80-96); MEAN PLT VOLUME 9.7 fl (7.5-11.1); MONO % 7.1 % (3.8-10.2); PLATELET COUNT 167 K/MM3 (134-434); RBC 4.62 M/mm3 (4.00-5.60); RDW 14.6 % (11.9-15.9); WHITE BLOOD COUNT 7.7 K/mm3 (4.0-10.0)
[2020-02-07 09:19] LABS: POTASSIUM 3.5 mmol/L (3.5-5.1)
[2020-02-07 09:25] LABS: CALCIUM 8.9 mg/dL (8.5-10.1)
[2020-02-07 09:26] LABS: BLOOD UREA NITROGEN 17.7 mg/dL (7-18)
[2020-02-07 09:30] LABS: BILIRUBIN,TOTAL 0.4 mg/dL (0.2-1); TOT PROT 6.3 g/dl (6.4-8.2)
[2020-02-07] MEDS: ENOXAPARIN NA (PORCINE) 40 MG/0.4 ML DISP.SYRIN SQ SCH (10:49)
[2020-02-07] MEDS: amLODIPine BESYLATE 5 MG TABLET (FP) PO SCH (10:49)
[2020-02-07] MEDS: SPIRONOLACTONE 25 MG TABLET PO SCH (10:50)
[2020-02-07] MEDS: PANTOPRAZOLE 40 MG TABLET PO SCH (10:50)
[2020-02-07] MEDS: CALCIUM (OYSTER SHELL) 500 MG TABLET (FP) PO SCH ×2 (10:51→21:12)
[2020-02-07] MEDS: cloNIDine HCL 0.1 MG TABLET PO SCH ×2 (10:52→21:12)
[2020-02-07] MEDS: ASPIRIN COATED 81 MG TABLET.EC PO SCH (10:53)
[2020-02-07] MEDS: POLYETHYLENE GLYCOL 3350 119 GM BTL PO SCH (10:55)
[2020-02-07] MEDS: BACITRACIN 15 GM TUBE TOPICAL OINTMENT TP SCH (10:55)
[2020-02-07] MEDS: SERTRALINE HCL 50 MG TABLET (FP) PO SCH (10:55)
[2020-02-07] MEDS: NYSTATIN 100000 UNIT/GM TOPICAL OINTMENT 15 GM TUBE TP SCH ×2 (10:58→21:14)
[2020-02-07] MEDS: VANCOMYCIN HCL 1,250 MG in DEXTROSE 5%-WATER - 250 ML IVPB SCH (12:22)
[2020-02-07] MEDS: COLLAGENASE CLOSTRIDIUM HIST. 30 GRAMS TUBE TP SCH (15:21)
[2020-02-07] MEDS: ATORVASTATIN CA 20 MG TABLET (FP) PO SCH (21:12)
[2020-02-07] MEDS ORDERED: SODIUM PHOSPHATE/NA BIPHOS 133 ML ENEMA RC ONE (22:00)
[2020-02-08] MEDS: oxyCODONE HCL 5 MG TABLET PO SCH ×6 (02:11→22:05)
[2020-02-08] MEDS: INSULIN SLIDING SCALE (NOVOLOG) 1 VIAL SQ SCH ×4 (06:36→23:56)
[2020-02-08] MEDS: FUROSEMIDE 40 MG TABLET (FP) PO SCH ×2 (06:36→14:37)
[2020-02-08] MEDS: METOCLOPRAMIDE HCL 10 MG TABLET (FP) PO SCH ×3 (06:36→16:20)
[2020-02-08] MEDS: INSULIN (NOVOLOG MIX 70/30) 100 UNITS/ML MDV SQ SCH ×2 (06:36→16:20)
[2020-02-08] MEDS: amLODIPine BESYLATE 5 MG TABLET (FP) PO SCH (09:24)
[2020-02-08] MEDS: SPIRONOLACTONE 25 MG TABLET PO SCH (09:24)
[2020-02-08] MEDS: cloNIDine HCL 0.1 MG TABLET PO SCH ×2 (09:25→22:05)
[2020-02-08] MEDS: CALCIUM (OYSTER SHELL) 500 MG TABLET (FP) PO SCH ×2 (09:25→22:05)
[2020-02-08] MEDS: ACETAMINOPHEN 325 MG TABLET (FP) PO PRN (09:25)
[2020-02-08] MEDS: SERTRALINE HCL 50 MG TABLET (FP) PO SCH (09:25)
[2020-02-08] MEDS: ASPIRIN COATED 81 MG TABLET.EC PO SCH (09:25)
[2020-02-08] MEDS: BACITRACIN 15 GM TUBE TOPICAL OINTMENT TP SCH (09:26)
[2020-02-08] MEDS: NYSTATIN 100000 UNIT/GM TOPICAL OINTMENT 15 GM TUBE TP SCH ×2 (09:26→22:11)
[2020-02-08] MEDS: POLYETHYLENE GLYCOL 3350 119 GM BTL PO SCH (09:27)
[2020-02-08] MEDS: PANTOPRAZOLE 40 MG TABLET PO SCH (09:27)
[2020-02-08] MEDS: ENOXAPARIN NA (PORCINE) 40 MG/0.4 ML DISP.SYRIN SQ SCH (09:27)
[2020-02-08] MEDS: ALPRAZolam 1 MG TABLET PO PRN ×2 (13:11→19:00)
[2020-02-08 14:32] VITALS: BMI 38.2
[2020-02-08] MEDS: COLLAGENASE CLOSTRIDIUM HIST. 30 GRAMS TUBE TP SCH (16:20)
[2020-02-08] MEDS: ATORVASTATIN CA 20 MG TABLET (FP) PO SCH (22:05)
[2020-02-08] MEDS: SENNOSIDES 8.6MG TABLET (FP) PO PRN (22:08)
[2020-02-08] MEDS: DOCUSATE SODIUM 100 MG CAPSULE (FP) PO PRN (22:09)
[2020-02-09] MEDS: oxyCODONE HCL 5 MG TABLET PO SCH ×6 (02:01→22:13)
[2020-02-09] MEDS: ALPRAZolam 1 MG TABLET PO PRN ×3 (04:23→22:15)
[2020-02-09] MEDS: INSULIN (NOVOLOG MIX 70/30) 100 UNITS/ML MDV SQ SCH ×2 (06:26→16:40)
[2020-02-09] MEDS: INSULIN SLIDING SCALE (NOVOLOG) 1 VIAL SQ SCH ×3 (06:26→18:16)
[2020-02-09] MEDS: FUROSEMIDE 40 MG TABLET (FP) PO SCH ×2 (06:27→14:05)
[2020-02-09] MEDS: METOCLOPRAMIDE HCL 10 MG TABLET (FP) PO SCH ×3 (06:27→16:40)
[2020-02-09] MEDS: ENOXAPARIN NA (PORCINE) 40 MG/0.4 ML DISP.SYRIN SQ SCH (10:46)
[2020-02-09] MEDS: cloNIDine HCL 0.1 MG TABLET PO SCH ×2 (10:48→22:12)
[2020-02-09] MEDS: SERTRALINE HCL 50 MG TABLET (FP) PO SCH (10:48)
[2020-02-09] MEDS: CALCIUM (OYSTER SHELL) 500 MG TABLET (FP) PO SCH ×2 (10:48→22:12)
[2020-02-09] MEDS: amLODIPine BESYLATE 5 MG TABLET (FP) PO SCH (10:48)
[2020-02-09] MEDS: PANTOPRAZOLE 40 MG TABLET PO SCH (10:48)
[2020-02-09] MEDS: SPIRONOLACTONE 25 MG TABLET PO SCH (10:48)
[2020-02-09] MEDS: ASPIRIN COATED 81 MG TABLET.EC PO SCH (10:48)
[2020-02-09] MEDS: BACITRACIN 15 GM TUBE TOPICAL OINTMENT TP SCH (10:58)
[2020-02-09] MEDS: POLYETHYLENE GLYCOL 3350 119 GM BTL PO SCH (10:59)
[2020-02-09] MEDS ORDERED: INSULIN (NOVOLOG) ASPART 100 UNITS/ML 10ML VIAL ONE ×2 (12:22→18:48)
[2020-02-09] MEDS ORDERED: CEFEPIME HCL 1 GM VIAL (RESTRICTED TO ID) ONE ×2 (14:04→18:10)
[2020-02-09] MEDS ORDERED: DEXTROSE 5%-WATER 100 ML IVPB ONE ×2 (14:04→18:10)
[2020-02-09] MEDS: CEFEPIME 1 GM in DEXTROSE 5%-WATER 100 ML IVPB SCH ×2 (14:24→19:32)
[2020-02-09] MEDS: NYSTATIN 100000 UNIT/GM TOPICAL OINTMENT 15 GM TUBE TP SCH ×2 (16:24→22:12)
[2020-02-09] MEDS: COLLAGENASE CLOSTRIDIUM HIST. 30 GRAMS TUBE TP SCH (16:24)
[2020-02-09] MEDS ORDERED: PT OWN MED DRAWER 7, Y5N ONE ×2 (16:26→18:10)
[2020-02-09] MEDS: VANCOMYCIN 1,250 MG in DEXTROSE 5%-WATER - 250 ML IVPB SCH (16:27)
[2020-02-09] MEDS: ATORVASTATIN CA 20 MG TABLET (FP) PO SCH (22:12)
[2020-02-09] MEDS: SENNOSIDES 8.6MG TABLET (FP) PO PRN (22:13)
[2020-02-10] MEDS: VANCOMYCIN 1,250 MG in DEXTROSE 5%-WATER - 250 ML IVPB SCH ×2 (00:31→12:24)
[2020-02-10] MEDS: INSULIN SLIDING SCALE (NOVOLOG) 1 VIAL SQ SCH ×4 (00:46→17:21)
[2020-02-10] MEDS ORDERED: CEFEPIME HCL 1 GM VIAL (RESTRICTED TO ID) ONE ×3 (02:07→17:48)
[2020-02-10] MEDS ORDERED: DEXTROSE 5%-WATER 100 ML IVPB ONE ×3 (02:08→17:48)
[2020-02-10] MEDS: oxyCODONE HCL 5 MG TABLET PO SCH ×6 (02:11→21:45)
[2020-02-10] MEDS: CEFEPIME 1 GM in DEXTROSE 5%-WATER 100 ML IVPB SCH ×3 (03:25→17:51)
[2020-02-10] MEDS: METOCLOPRAMIDE HCL 10 MG TABLET (FP) PO SCH ×3 (06:28→16:54)
[2020-02-10] MEDS: FUROSEMIDE 40 MG TABLET (FP) PO SCH ×2 (06:28→13:54)
[2020-02-10] MEDS: INSULIN (NOVOLOG MIX 70/30) 100 UNITS/ML MDV SQ SCH ×2 (06:30→16:54)
[2020-02-10] MEDS ORDERED: INSULIN (NOVOLOG MIX 70/30) 100 UNITS/ML MDV SQ ONE (07:44)
[2020-02-10] MEDS: ALPRAZolam 1 MG TABLET PO PRN ×2 (09:15→21:48)
[2020-02-10] MEDS: CALCIUM (OYSTER SHELL) 500 MG TABLET (FP) PO SCH ×2 (09:16→21:45)
[2020-02-10] MEDS: PANTOPRAZOLE 40 MG TABLET PO SCH (09:16)
[2020-02-10] MEDS: SERTRALINE HCL 50 MG TABLET (FP) PO SCH (09:16)
[2020-02-10] MEDS: amLODIPine BESYLATE 5 MG TABLET (FP) PO SCH (09:17)
[2020-02-10] MEDS: SPIRONOLACTONE 25 MG TABLET PO SCH (09:17)
[2020-02-10] MEDS: ASPIRIN COATED 81 MG TABLET.EC PO SCH (09:18)
[2020-02-10] MEDS: ENOXAPARIN NA (PORCINE) 40 MG/0.4 ML DISP.SYRIN SQ SCH (09:19)
[2020-02-10] MEDS: cloNIDine HCL 0.1 MG TABLET PO SCH ×2 (09:20→21:46)
[2020-02-10] MEDS: BACITRACIN 15 GM TUBE TOPICAL OINTMENT TP SCH (09:31)
[2020-02-10] MEDS ORDERED: PT OWN MED DRAWER 7, Y5N ONE ×2 (10:15→23:57)
[2020-02-10] MEDS: POLYETHYLENE GLYCOL 3350 119 GM BTL PO SCH (10:20)
[2020-02-10] MEDS: NYSTATIN 100000 UNIT/GM TOPICAL OINTMENT 15 GM TUBE TP SCH ×2 (10:33→22:01)
[2020-02-10] MEDS ORDERED: INSULIN (NOVOLOG) ASPART 100 UNITS/ML 10ML VIAL ONE (11:40)
[2020-02-10] MEDS: COLLAGENASE CLOSTRIDIUM HIST. 30 GRAMS TUBE TP SCH (16:36)
[2020-02-10] MEDS: ATORVASTATIN CA 20 MG TABLET (FP) PO SCH (21:45)
[2020-02-10] MEDS: SENNOSIDES 8.6MG TABLET (FP) PO PRN (21:46)
[2020-02-11] MEDS: INSULIN SLIDING SCALE (NOVOLOG) 1 VIAL SQ SCH ×5 (00:10→23:17)
[2020-02-11] MEDS: VANCOMYCIN 1,250 MG in DEXTROSE 5%-WATER - 250 ML IVPB SCH ×3 (00:12→23:12)
[2020-02-11] MEDS ORDERED: DEXTROSE 5%-WATER 100 ML IVPB ONE ×3 (02:35→17:42)
[2020-02-11] MEDS ORDERED: CEFEPIME HCL 1 GM VIAL (RESTRICTED TO ID) ONE ×3 (02:35→17:42)
[2020-02-11] MEDS: CEFEPIME 1 GM in DEXTROSE 5%-WATER 100 ML IVPB SCH ×3 (02:39→17:46)
[2020-02-11] MEDS: oxyCODONE HCL 5 MG TABLET PO SCH ×6 (02:39→21:52)
[2020-02-11] MEDS: METOCLOPRAMIDE HCL 10 MG TABLET (FP) PO SCH ×3 (06:37→16:32)
[2020-02-11] MEDS: FUROSEMIDE 40 MG TABLET (FP) PO SCH ×2 (06:37→13:51)
[2020-02-11] MEDS: ALPRAZolam 1 MG TABLET PO PRN ×3 (06:40→23:12)
[2020-02-11] MEDS: INSULIN (NOVOLOG MIX 70/30) 100 UNITS/ML MDV SQ SCH ×2 (06:42→16:32)
[2020-02-11] MEDS: cloNIDine HCL 0.1 MG TABLET PO SCH ×2 (10:11→21:38)
[2020-02-11] MEDS: SPIRONOLACTONE 25 MG TABLET PO SCH (10:11)
[2020-02-11] MEDS: ASPIRIN COATED 81 MG TABLET.EC PO SCH (10:12)
[2020-02-11] MEDS: CALCIUM (OYSTER SHELL) 500 MG TABLET (FP) PO SCH ×2 (10:12→21:33)
[2020-02-11] MEDS: amLODIPine BESYLATE 5 MG TABLET (FP) PO SCH (10:12)
[2020-02-11] MEDS: SERTRALINE HCL 50 MG TABLET (FP) PO SCH (10:12)
[2020-02-11] MEDS: DOCUSATE SODIUM 100 MG CAPSULE (FP) PO PRN (10:12)
[2020-02-11] MEDS: PANTOPRAZOLE 40 MG TABLET PO SCH (10:12)
[2020-02-11] MEDS: NYSTATIN 100000 UNIT/GM TOPICAL OINTMENT 15 GM TUBE TP SCH ×2 (10:13→21:37)
[2020-02-11] MEDS: ENOXAPARIN NA (PORCINE) 40 MG/0.4 ML DISP.SYRIN SQ SCH (10:13)
[2020-02-11] MEDS: POLYETHYLENE GLYCOL 3350 119 GM BTL PO SCH (10:30)
[2020-02-11] MEDS ORDERED: INSULIN (NOVOLOG) ASPART 100 UNITS/ML 10ML VIAL ONE ×3 (11:47→23:11)
[2020-02-11] MEDS: COLLAGENASE CLOSTRIDIUM HIST. 30 GRAMS TUBE TP SCH (11:56)
[2020-02-11] MEDS: BACITRACIN 15 GM TUBE TOPICAL OINTMENT TP SCH (11:56)
[2020-02-11] MEDS ORDERED: PT OWN MED DRAWER 7, Y5N ONE ×3 (12:03→23:11)
[2020-02-11] MEDS: ARTIFICIAL TEARS (POLYVINYL ALCOHOL) OPTH DROPS OU SCH ×2 (13:50→21:37)
[2020-02-11] MEDS ORDERED: ARTIFICIAL TEARS (POLYVINYL ALCOHOL) OPTH DROPS OU SCH ×2 (14:00)
[2020-02-11] MEDS: ATORVASTATIN CA 20 MG TABLET (FP) PO SCH (21:33)
[2020-02-12] MEDS ORDERED: CEFEPIME HCL 1 GM VIAL (RESTRICTED TO ID) ONE ×2 (01:25→09:32)
[2020-02-12] MEDS ORDERED: DEXTROSE 5%-WATER 100 ML IVPB ONE ×2 (01:25→09:32)
[2020-02-12] MEDS: CEFEPIME 1 GM in DEXTROSE 5%-WATER 100 ML IVPB SCH ×2 (01:33→09:40)
[2020-02-12] MEDS: oxyCODONE HCL 5 MG TABLET PO SCH ×6 (02:00→21:45)
[2020-02-12] MEDS: FUROSEMIDE 40 MG TABLET (FP) PO SCH ×2 (06:03→14:15)
[2020-02-12] MEDS: METOCLOPRAMIDE HCL 10 MG TABLET (FP) PO SCH ×3 (06:03→17:48)
[2020-02-12] MEDS: ARTIFICIAL TEARS (POLYVINYL ALCOHOL) OPTH DROPS OU SCH ×3 (06:05→21:46)
[2020-02-12] MEDS: INSULIN (NOVOLOG MIX 70/30) 100 UNITS/ML MDV SQ SCH ×2 (06:05→17:48)
[2020-02-12] MEDS: INSULIN SLIDING SCALE (NOVOLOG) 1 VIAL SQ SCH ×4 (06:05→23:34)
[2020-02-12 07:35] LABS: BASO % 0.7 % (0-2.0); EOS % 2.8 % (0-4.5); HEMATOCRIT 39.2 % (35.4-49); HEMOGLOBIN 12.9 GM/dL (11.7-16.9); LYMPH % 32.5 % (8-40); MCH 28.1 pg (25.7-33.7); MCHC 32.8 g/dl (32.0-35.9); MEAN CELL VOLUME 85.6 fl (80-96); MEAN PLT VOLUME 9.9 fl (7.5-11.1); MONO % 7.8 % (3.8-10.2); NEUT % 56.2 % (42.8-82.8); PLATELET COUNT 143 K/MM3 (134-434); RBC 4.58 M/mm3 (4.00-5.60); RDW 14.8 % (11.9-15.9); WHITE BLOOD COUNT 6.4 K/mm3 (4.0-10.0)
[2020-02-12 07:59] LABS: CALCIUM 8.6 mg/dL (8.5-10.1)
[2020-02-12 08:00] LABS: ALBUMIN 3.2 g/dl (3.4-5.0); BLOOD UREA NITROGEN 25.8 mg/dL (7-18)
[2020-02-12 08:03] LABS: CREATININE 1.3 mg/dL (0.55-1.3)
[2020-02-12 08:04] LABS: BILIRUBIN,TOTAL 0.9 mg/dL (0.2-1)
[2020-02-12 08:05] LABS: TOT PROT 6.8 g/dl (6.4-8.2)
[2020-02-12] MEDS: PANTOPRAZOLE 40 MG TABLET PO SCH (09:39)
[2020-02-12] MEDS: amLODIPine BESYLATE 5 MG TABLET (FP) PO SCH (09:39)
[2020-02-12] MEDS: SERTRALINE HCL 50 MG TABLET (FP) PO SCH (09:39)
[2020-02-12] MEDS: CALCIUM (OYSTER SHELL) 500 MG TABLET (FP) PO SCH ×2 (09:39→21:45)
[2020-02-12] MEDS: cloNIDine HCL 0.1 MG TABLET PO SCH ×2 (09:40→21:46)
[2020-02-12] MEDS: ALPRAZolam 1 MG TABLET PO PRN ×2 (09:40→22:19)
[2020-02-12] MEDS: SPIRONOLACTONE 25 MG TABLET PO SCH (09:40)
[2020-02-12] MEDS: ASPIRIN COATED 81 MG TABLET.EC PO SCH (09:41)
[2020-02-12] MEDS: ENOXAPARIN NA (PORCINE) 40 MG/0.4 ML DISP.SYRIN SQ SCH (09:41)
[2020-02-12] MEDS: POLYETHYLENE GLYCOL 3350 119 GM BTL PO SCH (09:42)
[2020-02-12] MEDS: NYSTATIN 100000 UNIT/GM TOPICAL OINTMENT 15 GM TUBE TP SCH ×2 (09:42→21:45)
[2020-02-12] MEDS ORDERED: PT OWN MED DRAWER 7, Y5N ONE (11:34)
[2020-02-12] MEDS: VANCOMYCIN 1,250 MG in DEXTROSE 5%-WATER - 250 ML IVPB SCH (12:01)
[2020-02-12] MEDS: COLLAGENASE CLOSTRIDIUM HIST. 30 GRAMS TUBE TP SCH (12:09)
[2020-02-12] MEDS: BACITRACIN 15 GM TUBE TOPICAL OINTMENT TP SCH (14:18)
[2020-02-12] MEDS ORDERED: INSULIN (NOVOLOG MIX 70/30) 100 UNITS/ML MDV SQ ONE (18:22)
[2020-02-12] MEDS: ATORVASTATIN CA 20 MG TABLET (FP) PO SCH (21:45)
[2020-02-13] MEDS: oxyCODONE HCL 5 MG TABLET PO SCH ×6 (02:10→21:54)
[2020-02-13] MEDS: ALPRAZolam 1 MG TABLET PO PRN ×3 (04:28→22:34)
[2020-02-13] MEDS: SENNOSIDES 8.6MG TABLET (FP) PO PRN (04:28)
[2020-02-13] MEDS: DOCUSATE SODIUM 100 MG CAPSULE (FP) PO PRN (04:28)
[2020-02-13] MEDS: INSULIN (NOVOLOG MIX 70/30) 100 UNITS/ML MDV SQ SCH ×2 (06:02→17:44)
[2020-02-13] MEDS: ARTIFICIAL TEARS (POLYVINYL ALCOHOL) OPTH DROPS OU SCH ×3 (06:03→21:54)
[2020-02-13] MEDS: INSULIN SLIDING SCALE (NOVOLOG) 1 VIAL SQ SCH ×4 (06:03→23:55)
[2020-02-13] MEDS: FUROSEMIDE 40 MG TABLET (FP) PO SCH ×2 (06:03→14:05)
[2020-02-13] MEDS: METOCLOPRAMIDE HCL 10 MG TABLET (FP) PO SCH ×3 (06:03→17:45)
[2020-02-13] MEDS ORDERED: DEXTROSE 5%-WATER 100 ML IVPB ONE (10:13)
[2020-02-13] MEDS: CALCIUM (OYSTER SHELL) 500 MG TABLET (FP) PO SCH ×2 (10:27→21:54)
[2020-02-13] MEDS: CEFTRIAXONE 2 GM in DEXTROSE 5%-WATER 100 ML IVPB SCH (10:27)
[2020-02-13] MEDS: SPIRONOLACTONE 25 MG TABLET PO SCH (10:27)
[2020-02-13] MEDS: ASPIRIN COATED 81 MG TABLET.EC PO SCH (10:28)
[2020-02-13] MEDS: ENOXAPARIN NA (PORCINE) 40 MG/0.4 ML DISP.SYRIN SQ SCH (10:28)
[2020-02-13] MEDS: BACITRACIN 15 GM TUBE TOPICAL OINTMENT TP SCH (10:28)
[2020-02-13] MEDS: cloNIDine HCL 0.1 MG TABLET PO SCH ×2 (10:28→21:54)
[2020-02-13] MEDS: amLODIPine BESYLATE 5 MG TABLET (FP) PO SCH (10:29)
[2020-02-13] MEDS: SERTRALINE HCL 50 MG TABLET (FP) PO SCH (10:29)
[2020-02-13] MEDS: PANTOPRAZOLE 40 MG TABLET PO SCH (10:29)
[2020-02-13] MEDS: POLYETHYLENE GLYCOL 3350 119 GM BTL PO SCH (10:36)
[2020-02-13] MEDS: COLLAGENASE CLOSTRIDIUM HIST. 30 GRAMS TUBE TP SCH (10:44)
[2020-02-13] MEDS: NYSTATIN 100000 UNIT/GM TOPICAL OINTMENT 15 GM TUBE TP SCH ×2 (10:44→21:54)
[2020-02-13] MEDS ORDERED: INSULIN (NOVOLOG) ASPART 100 UNITS/ML 10ML VIAL ONE (11:46)
[2020-02-13] MEDS ORDERED: INSULIN (NOVOLOG MIX 70/30) 100 UNITS/ML MDV SQ ONE (17:55)
[2020-02-13] MEDS: ATORVASTATIN CA 20 MG TABLET (FP) PO SCH (21:54)
[2020-02-14] MEDS: oxyCODONE HCL 5 MG TABLET PO SCH ×2 (02:02→06:25)
[2020-02-14 06:24] VITALS: BP 124/56; PULSE 55; TEMP 98.5
[2020-02-14] MEDS: METOCLOPRAMIDE HCL 10 MG TABLET (FP) PO SCH (06:25)
[2020-02-14] MEDS: FUROSEMIDE 40 MG TABLET (FP) PO SCH (06:25)
[2020-02-14] MEDS: INSULIN SLIDING SCALE (NOVOLOG) 1 VIAL SQ SCH (06:27)
[2020-02-14] MEDS: INSULIN (NOVOLOG MIX 70/30) 100 UNITS/ML MDV SQ SCH (06:27)
[2020-02-14] MEDS: ARTIFICIAL TEARS (POLYVINYL ALCOHOL) OPTH DROPS OU SCH (06:27)
[2020-02-14] MEDS ORDERED: INSULIN (LEVEMIR) 100 UNITS/ML UNITS SQ ONE (06:56)
[2020-02-14] MEDS: SPIRONOLACTONE 25 MG TABLET PO SCH (08:31)
[2020-02-14] MEDS: SERTRALINE HCL 50 MG TABLET (FP) PO SCH (08:32)
[2020-02-14] MEDS: cloNIDine HCL 0.1 MG TABLET PO SCH (08:32)
[2020-02-14] MEDS: ASPIRIN COATED 81 MG TABLET.EC PO SCH (08:32)
[2020-02-14] MEDS: PANTOPRAZOLE 40 MG TABLET PO SCH (08:33)
[2020-02-14] MEDS: amLODIPine BESYLATE 5 MG TABLET (FP) PO SCH (08:33)
[2020-02-14] MEDS: CALCIUM (OYSTER SHELL) 500 MG TABLET (FP) PO SCH (08:33)
[2020-02-14] MEDS: ALPRAZolam 1 MG TABLET PO PRN (08:37)
[2020-02-14] MEDS: CEFTRIAXONE 2 GM in DEXTROSE 5%-WATER 100 ML IVPB SCH (08:40)
[2020-02-14] MEDS: ENOXAPARIN NA (PORCINE) 40 MG/0.4 ML DISP.SYRIN SQ SCH (08:43)
[2020-02-14] MEDS: POLYETHYLENE GLYCOL 3350 119 GM BTL PO SCH (08:44)
== END 2020-02-14 11:06 | disposition home or self-care (01) | DRG 344 ==
LOC: JER 16:46 → JERBED 02-04 00:46 → J6S 02-04 06:47
PROVIDERS: ADMIT Internal Medicine; ATTEND Internal Medicine
PROC: 0QBM3ZX Excision of Left Tarsal, Percutaneous Approach, Diagnostic (ICD-10-PCS; principal; 2020-02-12)
PROC: 02HV33Z Insertion of Infusion Device into Superior Vena Cava, Percutaneous Approach (ICD-10-PCS; 2020-02-13)
DX: E11.69 Type 2 diabetes mellitus with other specified complication (principal); L03.90 Cellulitis, unspecified; Z86.14 Personal history of Methicillin resistant Staphylococcus aureus infection; I25.10 Atherosclerotic heart disease of native coronary artery without angina pectoris; E78.5 Hyperlipidemia, unspecified; F41.8 Other specified anxiety disorders; I73.9 Peripheral vascular disease, unspecified; E11.65 Type 2 diabetes mellitus with hyperglycemia; G89.29 Other chronic pain; Z89.511 Acquired absence of right leg below knee; F43.10 Post-traumatic stress disorder, unspecified; B19.20 Unspecified viral hepatitis C without hepatic coma; L97.509 Non-pressure chronic ulcer of other part of unspecified foot with unspecified severity; E11.51 Type 2 diabetes mellitus with diabetic peripheral angiopathy without gangrene; E11.621 Type 2 diabetes mellitus with foot ulcer; M86.9 Osteomyelitis, unspecified; G62.9 Polyneuropathy, unspecified; E11.40 Type 2 diabetes mellitus with diabetic neuropathy, unspecified; T87.43 Infection of amputation stump, right lower extremity; I50.32 Chronic diastolic (congestive) heart failure; I11.0 Hypertensive heart disease with heart failure; D69.6 Thrombocytopenia, unspecified; K59.00 Constipation, unspecified
CPT/HCPCS: 36415; 36569; 71045-TC-FY; 73560-TC-RT-FY; 73590-TC-LT-FY; 73590-TC-RT-FY; 73610-TC-LT-FY; 73630-TC-LT; 73718-TC-LT; 73719; 77001-TC-FY; 80053; 81003; 82550; 82553; 82803; 82962; 83036; 83605; 84484; 85025; 85610; 85651; 85730; 86140; 86850; 86900; 86901; 87040; 87070; 87077; 87086; 87186; 87205; 93005; 93010; 97116-GP; 97162-GP; 99285-25; C1751; C9803; G0480; J0735; U0003

== ENCOUNTER 2020-03-11 12:53 | Emergency (ER) | payer OTHER ==
[2020-03-11 13:09] VITALS: BP 115/62; PULSE 56; TEMP 98.6; BMI 35.4
[2020-03-11] MEDS ORDERED: VANCOMYCIN HCL 1,250 MG in DEXTROSE 5%-WATER - 250 ML IVPB ONE (13:20)
[2020-03-11] MEDS ORDERED: CEFTRIAXONE 2 GM-D5W BAG 2 GM/50 ML BAG IVPB ONE (15:28)
== END 2020-03-11 18:17 | disposition home or self-care (01) ==
LOC: JER 12:53
DX: Z45.2 Encounter for adjustment and management of vascular access device (principal)
CPT/HCPCS: 36569; 77001-TC-FY; 99285-25; C1751

== ENCOUNTER 2020-03-14 15:44 | Inpatient (IN) | payer OTHER ==
[2020-03-14 15:53] VITALS: BMI 42.9
[2020-03-14] MEDS ORDERED: SODIUM CHLORIDE 3,402 ML IV ONE (16:54)
[2020-03-14 19:02] LABS: BASO % 0.6 % (0-2.0); EOS % 6.7 % (0-4.5); HEMATOCRIT 36.2 % (35.4-49); HEMOGLOBIN 11.8 GM/dL (11.7-16.9); MCH 28.1 pg (25.7-33.7); MCHC 32.6 g/dl (32.0-35.9); MEAN CELL VOLUME 86.1 fl (80-96); MEAN PLT VOLUME 9.1 fl (7.5-11.1); MONO % 8.5 % (3.8-10.2); NEUT % 67.2 % (42.8-82.8); PLATELET COUNT 158 K/MM3 (134-434); RBC 4.21 M/mm3 (4.00-5.60); RDW 15.8 % (11.9-15.9); WHITE BLOOD COUNT 6.5 K/mm3 (4.0-10.0)
[2020-03-14 19:05] LABS: VENOUS BASE EXCESS 1.4 mmol/L (-2-2); VENOUS O2 SATURATION 87.6 % (70-80); VENOUS PCO2 49.3 mmHg (38-52); VENOUS PH 7.363 (7.310-7.410)
[2020-03-14 19:08] LABS: PH,URINE 5.5 (5.0-8.0); URINE APPEARANCE CLEAR; URINE BILIRUBIN NEGATIVE (NEGATIVE); URINE COLOR YELLOW; URINE GLUCOSE (UA) TRACE (NEGATIVE); URINE KETONE NEGATIVE (NEGATIVE); URINE LEUK ESTERASE NEGATIVE (NEGATIVE); URINE NITRITE NEGATIVE (NEGATIVE); URINE PROTEIN NEGATIVE (NEGATIVE); URINE UROBILINOGEN 0.2 mg/dL (0.2-1.0)
[2020-03-14 19:12] LABS: INR 1.03 (0.83-1.09); PROTHROMBIN TIME (PATIENT) 12.4 SEC (9.7-13.0)
[2020-03-14 19:14] LABS: ACTIVATED PTT 30.8 SECONDS (25.2-36.5)
[2020-03-14 19:33] LABS: CHLORIDE 100 mmol/L (98-107); POTASSIUM 3.9 mmol/L (3.5-5.1); SODIUM 136 mmol/L (136-145)
[2020-03-14 19:35] LABS: CALCIUM 8.1 mg/dL (8.5-10.1)
[2020-03-14 19:36] LABS: ALBUMIN 3.3 g/dl (3.4-5.0); ANION GAP 8 MMOL/L (8-16); CO2 29 mmol/L (21-32); GLUCOSE,RANDOM 272 mg/dL (74-106)
[2020-03-14 19:39] LABS: CREATININE 1.2 mg/dL (0.55-1.3); SGOT/AST 32 U/L (15-37); SGPT/ALT 34 U/L (13-61)
[2020-03-14 19:40] LABS: BILIRUBIN,TOTAL 0.4 mg/dL (0.2-1)
[2020-03-14 19:41] LABS: TOT PROT 6.8 g/dl (6.4-8.2)
[2020-03-14 19:42] LABS: ALK PHOS 121 U/L (45-117)
[2020-03-14] MEDS ORDERED: ARTIFICIAL TEARS (POLYVINYL ALCOHOL) OPTH DROPS OU ONE (20:57)
[2020-03-14] MEDS ORDERED: oxyCODONE HCL 5 MG TABLET PO ONE (21:09)
[2020-03-14] MEDS ORDERED: oxyCODONE HCL 5 MG TABLET ONE (21:12)
[2020-03-14] MEDS ORDERED: VANCOMYCIN 1 GM in D5W (PRE-DOCKED) 1,000 MG/250 ML IVPB ONE (21:58)
[2020-03-14] MEDS ORDERED: POLYETHYLENE GLYCOL 3350 119 GM BTL PO ONE (22:05)
[2020-03-14] MEDS ORDERED: PIPERACILLIN/TAZOB 3.375 GM 3.375 GM in DEXTROSE 5%-WATER - 50 ML IVPB ONE (22:05)
[2020-03-14] MEDS ORDERED: PIPERACILLIN/TAZOB 3.375 GM 3.375 GM/50 ML BAG IVPB ONE (22:23)
[2020-03-14] MEDS ORDERED: ONDANSETRON 4 MG/2 ML VIAL IVPUSH ONE (22:36)
[2020-03-14] MEDS ORDERED: ONDANSETRON 4 MG/2 ML VIAL ONE (22:37)
[2020-03-14] MEDS ORDERED: ACETAMINOPHEN 500 MG TABLET (FP) PO PRN (23:00)
[2020-03-14] MEDS ORDERED: oxyCODONE HCL 5 MG TABLET PO PRN ×2 (23:00→23:15)
[2020-03-14] MEDS ORDERED: ACETAMINOPHEN 325 MG TABLET (FP) PO PRN ×2 (23:00→23:15)
[2020-03-14] MEDS ORDERED: ALPRAZolam 2 MG TABLET PO PRN (23:01)
[2020-03-14] MEDS ORDERED: SENNOSIDES 8.6MG TABLET (FP) PO PRN (23:10)
[2020-03-14] MEDS ORDERED: SODIUM CHLORIDE NASAL SPRAY 44 ML BOTTLE NS PRN (23:12)
[2020-03-14] MEDS ORDERED: MAGNESIUM HYDROX 2400MG/30ML ORAL SUSPENSION 30 ML CUP PO PRN (23:21)
[2020-03-14] MEDS ORDERED: D5-1/2NS+10 MEQ KCL - 10 MEQ/1,000 ML INFUS.BAG IV SCH (23:45)
[2020-03-14] MEDS ORDERED: ONDANSETRON 4 MG/2 ML VIAL IVPUSH PRN (23:50)
[2020-03-15] MEDS: INSULIN SLIDING SCALE (NOVOLOG) 1 VIAL SQ SCH ×4 (01:06→17:00)
[2020-03-15] MEDS: ALPRAZolam 1 MG TABLET PO PRN ×3 (03:22→21:42)
[2020-03-15] MEDS: METOCLOPRAMIDE HCL 10 MG TABLET (FP) PO SCH ×3 (06:37→17:18)
[2020-03-15] MEDS: ARTIFICIAL TEARS (POLYVINYL ALCOHOL) OPTH DROPS OU PRN ×2 (06:37→16:24)
[2020-03-15] MEDS: FUROSEMIDE 40 MG TABLET (FP) PO SCH ×2 (06:37→13:18)
[2020-03-15 06:58] LABS: BASO % 0.6 % (0-2.0); EOS % 6.8 % (0-4.5); HEMATOCRIT 34.9 % (35.4-49); HEMOGLOBIN 11.2 GM/dL (11.7-16.9); LYMPH % 22.3 % (8-40); MCH 27.4 pg (25.7-33.7); MEAN CELL VOLUME 85.5 fl (80-96); MEAN PLT VOLUME 8.8 fl (7.5-11.1); MONO % 11.4 % (3.8-10.2); NEUT % 58.9 % (42.8-82.8); PLATELET COUNT 141 K/MM3 (134-434); RBC 4.08 M/mm3 (4.00-5.60); RDW 15.5 % (11.9-15.9); WHITE BLOOD COUNT 5.8 K/mm3 (4.0-10.0)
[2020-03-15] MEDS ORDERED: INSULIN (NOVOLOG MIX 70/30) 100 UNITS/ML MDV SQ SCH (07:00)
[2020-03-15 07:04] LABS: POTASSIUM 4.1 mmol/L (3.5-5.1)
[2020-03-15 07:12] LABS: ALBUMIN 2.9 g/dl (3.4-5.0); BLOOD UREA NITROGEN 15.1 mg/dL (7-18); CALCIUM 7.8 mg/dL (8.5-10.1)
[2020-03-15 07:17] LABS: BILIRUBIN,TOTAL 0.9 mg/dL (0.2-1); TOT PROT 5.9 g/dl (6.4-8.2)
[2020-03-15] MEDS ORDERED: D5-1/2NS+10 MEQ KCL - 10 MEQ/1,000 ML INFUS.BAG IV SCH (08:30)
[2020-03-15] MEDS ORDERED: ASPIRIN COATED 81 MG TABLET.EC PO SCH (10:00)
[2020-03-15] MEDS: SERTRALINE HCL 50 MG TABLET (FP) PO SCH (11:41)
[2020-03-15] MEDS: LACTOBACILLUS ACIDOPHILUS 1 TABLET PO SCH (11:41)
[2020-03-15] MEDS: SPIRONOLACTONE 25 MG TABLET PO SCH (11:41)
[2020-03-15] MEDS: cloNIDine HCL 0.1 MG TABLET PO SCH ×2 (11:42→21:40)
[2020-03-15] MEDS: PANTOPRAZOLE 40 MG TABLET PO SCH (11:43)
[2020-03-15] MEDS: POLYETHYLENE GLYCOL 3350 119 GM BTL PO SCH (11:43)
[2020-03-15] MEDS: ENOXAPARIN NA (PORCINE) 40 MG/0.4 ML DISP.SYRIN SQ SCH (11:43)
[2020-03-15] MEDS: amLODIPine BESYLATE 5 MG TABLET (FP) PO SCH (11:43)
[2020-03-15] MEDS: oxyCODONE HCL 5 MG TABLET PO PRN ×3 (11:44→21:40)
[2020-03-15] MEDS: COLLAGENASE CLOSTRIDIUM HIST. 30 GRAMS TUBE TP SCH ×2 (11:51→12:00)
[2020-03-15] MEDS ORDERED: CEFTRIAXONE 2 GM-D5W BAG 2 GM/50 ML BAG IVPB SCH (12:30)
[2020-03-15] MEDS: VANCOMYCIN 1,250 MG in DEXTROSE 5%-WATER - 250 ML IVPB SCH (13:18)
[2020-03-15] MEDS ORDERED: ARTIFICIAL TEARS (POLYVINYL ALCOHOL) OPTH DROPS OU PRN (16:22)
[2020-03-15] MEDS ORDERED: PT OWN MED DRAWER 7, Y5N ONE (17:00)
[2020-03-15] MEDS: INSULIN (NOVOLOG MIX 70/30) 100 UNITS/ML MDV SQ SCH (18:40)
[2020-03-15] MEDS: ATORVASTATIN CA 20 MG TABLET (FP) PO SCH (21:40)
[2020-03-16] MEDS ORDERED: PT OWN MED DRAWER 7, Y5N ONE (00:50)
[2020-03-16] MEDS: VANCOMYCIN 1,250 MG in DEXTROSE 5%-WATER - 250 ML IVPB SCH ×2 (00:53→14:09)
[2020-03-16] MEDS: oxyCODONE HCL 5 MG TABLET PO PRN ×4 (03:24→20:00)
[2020-03-16] MEDS: INSULIN (NOVOLOG MIX 70/30) 100 UNITS/ML MDV SQ SCH ×2 (06:07→17:17)
[2020-03-16] MEDS: FUROSEMIDE 40 MG TABLET (FP) PO SCH ×2 (06:07→14:02)
[2020-03-16] MEDS: METOCLOPRAMIDE HCL 10 MG TABLET (FP) PO SCH ×3 (06:09→18:16)
[2020-03-16] MEDS: INSULIN SLIDING SCALE (NOVOLOG) 1 VIAL SQ SCH ×3 (06:09→17:18)
[2020-03-16 07:10] LABS: BASO % 0.5 % (0-2.0); EOS % 5.4 % (0-4.5); HEMATOCRIT 37.6 % (35.4-49); HEMOGLOBIN 11.9 GM/dL (11.7-16.9); LYMPH % 19.5 % (8-40); MCH 26.9 pg (25.7-33.7); MCHC 31.7 g/dl (32.0-35.9); MEAN CELL VOLUME 84.9 fl (80-96); MEAN PLT VOLUME 9.1 fl (7.5-11.1); MONO % 7.8 % (3.8-10.2); NEUT % 66.8 % (42.8-82.8); PLATELET COUNT 151 K/MM3 (134-434); RBC 4.43 M/mm3 (4.00-5.60); RDW 15.6 % (11.9-15.9); WHITE BLOOD COUNT 5.9 K/mm3 (4.0-10.0)
[2020-03-16 07:15] LABS: POTASSIUM 4.5 mmol/L (3.5-5.1)
[2020-03-16 07:18] LABS: CALCIUM 8.1 mg/dL (8.5-10.1)
[2020-03-16 07:19] LABS: BLOOD UREA NITROGEN 10.9 mg/dL (7-18)
[2020-03-16 07:22] LABS: CREATININE 1.1 mg/dL (0.55-1.3)
[2020-03-16 07:24] LABS: BILIRUBIN,TOTAL 0.6 mg/dL (0.2-1); TOT PROT 6.4 g/dl (6.4-8.2)
[2020-03-16] MEDS ORDERED: DEXTROSE 5%-WATER 100 ML IVPB ONE (08:52)
[2020-03-16] MEDS: CEFTRIAXONE 2 GM in DEXTROSE 5%-WATER 2 GM/100 ML BAG IVPB SCH (09:23)
[2020-03-16] MEDS: ENOXAPARIN NA (PORCINE) 40 MG/0.4 ML DISP.SYRIN SQ SCH (09:24)
[2020-03-16] MEDS: SPIRONOLACTONE 25 MG TABLET PO SCH (09:25)
[2020-03-16] MEDS: LACTOBACILLUS ACIDOPHILUS 1 TABLET PO SCH (09:26)
[2020-03-16] MEDS: SERTRALINE HCL 50 MG TABLET (FP) PO SCH (09:26)
[2020-03-16] MEDS: amLODIPine BESYLATE 5 MG TABLET (FP) PO SCH (09:26)
[2020-03-16] MEDS: PANTOPRAZOLE 40 MG TABLET PO SCH (09:26)
[2020-03-16] MEDS: cloNIDine HCL 0.1 MG TABLET PO SCH ×2 (09:26→21:14)
[2020-03-16] MEDS: POLYETHYLENE GLYCOL 3350 119 GM BTL PO SCH (09:27)
[2020-03-16] MEDS: COLLAGENASE CLOSTRIDIUM HIST. 30 GRAMS TUBE TP SCH (09:27)
[2020-03-16] MEDS: ALPRAZolam 1 MG TABLET PO PRN ×2 (11:29→21:14)
[2020-03-16] MEDS: ATORVASTATIN CA 20 MG TABLET (FP) PO SCH (21:14)
[2020-03-17] MEDS ORDERED: PT OWN MED DRAWER 7, Y5N ONE ×3 (00:55→14:43)
[2020-03-17] MEDS: VANCOMYCIN 1,250 MG in DEXTROSE 5%-WATER - 250 ML IVPB SCH ×2 (00:56→14:48)
[2020-03-17] MEDS: oxyCODONE HCL 5 MG TABLET PO PRN ×3 (04:24→19:58)
[2020-03-17] MEDS: METOCLOPRAMIDE HCL 10 MG TABLET (FP) PO SCH ×3 (06:08→17:17)
[2020-03-17] MEDS: FUROSEMIDE 40 MG TABLET (FP) PO SCH ×2 (06:08→14:08)
[2020-03-17] MEDS: INSULIN SLIDING SCALE (NOVOLOG) 1 VIAL SQ SCH ×3 (06:09→17:17)
[2020-03-17] MEDS: INSULIN (NOVOLOG MIX 70/30) 100 UNITS/ML MDV SQ SCH ×2 (06:09→17:17)
[2020-03-17] MEDS ORDERED: DEXTROSE 5%-WATER 100 ML IVPB ONE (09:49)
[2020-03-17] MEDS: amLODIPine BESYLATE 5 MG TABLET (FP) PO SCH (09:57)
[2020-03-17] MEDS: cloNIDine HCL 0.1 MG TABLET PO SCH ×2 (09:57→21:31)
[2020-03-17] MEDS: POLYETHYLENE GLYCOL 3350 119 GM BTL PO SCH (09:58)
[2020-03-17] MEDS: LACTOBACILLUS ACIDOPHILUS 1 TABLET PO SCH (09:58)
[2020-03-17] MEDS: ENOXAPARIN NA (PORCINE) 40 MG/0.4 ML DISP.SYRIN SQ SCH (09:58)
[2020-03-17] MEDS: CEFTRIAXONE 2 GM in DEXTROSE 5%-WATER 2 GM/100 ML BAG IVPB SCH (09:59)
[2020-03-17] MEDS: SERTRALINE HCL 50 MG TABLET (FP) PO SCH (10:12)
[2020-03-17] MEDS: ALPRAZolam 1 MG TABLET PO PRN ×2 (10:12→21:31)
[2020-03-17] MEDS: PANTOPRAZOLE 40 MG TABLET PO SCH (10:12)
[2020-03-17] MEDS: COLLAGENASE CLOSTRIDIUM HIST. 30 GRAMS TUBE TP SCH (10:15)
[2020-03-17] MEDS: SPIRONOLACTONE 25 MG TABLET PO SCH (10:15)
[2020-03-17] MEDS: ATORVASTATIN CA 20 MG TABLET (FP) PO SCH (21:31)
[2020-03-18] MEDS ORDERED: PT OWN MED DRAWER 7, Y5N ONE (00:30)
[2020-03-18] MEDS: VANCOMYCIN 1,250 MG in DEXTROSE 5%-WATER - 250 ML IVPB SCH ×2 (00:47→12:16)
[2020-03-18] MEDS: oxyCODONE HCL 5 MG TABLET PO PRN ×3 (03:43→13:25)
[2020-03-18] MEDS: FUROSEMIDE 40 MG TABLET (FP) PO SCH ×2 (06:41→13:25)
[2020-03-18] MEDS: METOCLOPRAMIDE HCL 10 MG TABLET (FP) PO SCH ×2 (06:41→11:38)
[2020-03-18] MEDS: INSULIN (NOVOLOG MIX 70/30) 100 UNITS/ML MDV SQ SCH (06:43)
[2020-03-18] MEDS: INSULIN SLIDING SCALE (NOVOLOG) 1 VIAL SQ SCH ×2 (06:43→11:38)
[2020-03-18] MEDS: ALPRAZolam 1 MG TABLET PO PRN ×2 (06:47→13:25)
[2020-03-18] MEDS ORDERED: DEXTROSE 5%-WATER 100 ML IVPB ONE (08:54)
[2020-03-18] MEDS: SPIRONOLACTONE 25 MG TABLET PO SCH (09:16)
[2020-03-18] MEDS: cloNIDine HCL 0.1 MG TABLET PO SCH (09:17)
[2020-03-18] MEDS: SERTRALINE HCL 50 MG TABLET (FP) PO SCH (09:17)
[2020-03-18] MEDS: amLODIPine BESYLATE 5 MG TABLET (FP) PO SCH (09:17)
[2020-03-18] MEDS: PANTOPRAZOLE 40 MG TABLET PO SCH (09:17)
[2020-03-18] MEDS: CEFTRIAXONE 2 GM in DEXTROSE 5%-WATER 2 GM/100 ML BAG IVPB SCH (09:20)
[2020-03-18] MEDS: ENOXAPARIN NA (PORCINE) 40 MG/0.4 ML DISP.SYRIN SQ SCH (09:21)
[2020-03-18] MEDS: COLLAGENASE CLOSTRIDIUM HIST. 30 GRAMS TUBE TP SCH (09:21)
[2020-03-18] MEDS: POLYETHYLENE GLYCOL 3350 119 GM BTL PO SCH ×2 (09:21→10:00)
[2020-03-18] MEDS: LACTOBACILLUS ACIDOPHILUS 1 TABLET PO SCH (09:21)
[2020-03-18 14:19] VITALS: BP 128/68; PULSE 58; TEMP 98.1
[2020-03-18] MEDS ORDERED: INSULIN (NOVOLOG MIX 70/30) 100 UNITS/ML MDV SQ SCH (14:32)
== END 2020-03-18 14:57 | disposition home or self-care (01) | DRG 344 ==
LOC: JER 15:44 → JERBED 22:05 → J4S 03-15 00:20
PROVIDERS: ADMIT Internal Medicine; ATTEND Internal Medicine
DX: E11.69 Type 2 diabetes mellitus with other specified complication (principal); L03.116 Cellulitis of left lower limb; E11.65 Type 2 diabetes mellitus with hyperglycemia; E78.5 Hyperlipidemia, unspecified; K56.41 Fecal impaction; I11.0 Hypertensive heart disease with heart failure; I50.32 Chronic diastolic (congestive) heart failure; R50.9 Fever, unspecified; E11.42 Type 2 diabetes mellitus with diabetic polyneuropathy; M86.9 Osteomyelitis, unspecified; R59.1 Generalized enlarged lymph nodes; R94.5 Abnormal results of liver function studies; E11.621 Type 2 diabetes mellitus with foot ulcer; M54.5 Low back pain; E66.9 Obesity, unspecified; Z68.41 Body mass index [BMI] 40.0-44.9, adult; F41.8 Other specified anxiety disorders; L97.529 Non-pressure chronic ulcer of other part of left foot with unspecified severity; I25.2 Old myocardial infarction; I25.10 Atherosclerotic heart disease of native coronary artery without angina pectoris; F43.10 Post-traumatic stress disorder, unspecified; W18.39XA Other fall on same level, initial encounter; S80.212A Abrasion, left knee, initial encounter; Z89.511 Acquired absence of right leg below knee; Z89.422 Acquired absence of other left toe(s); K76.89 Other specified diseases of liver; Y92.238 Other place in hospital as the place of occurrence of the external cause
CPT/HCPCS: 15275; 36415; 70450-TC; 71045-TC-FY; 71260-TC; 72125-TC; 73030-TC-RT-FY; 73502-TC-LT-FY; 73502-TC-RT-FY; 73560-TC-LT-FY; 74177-TC; 80053; 81003; 82803; 82962; 83036; 83605; 83880; 84484; 85025; 85027; 85610; 85651; 85730; 86140; 86850; 86900; 86901; 87040; 87045; 87046; 87086; 87804; 93005; 93010; 97116-GP; 97161-GP; 97597; 99285-25; C9803; G0480; J0735; Q4106; Q9967; U0003

== ENCOUNTER 2020-03-30 21:23 | Inpatient (IN) | payer OTHER ==
[2020-03-30] MEDS ORDERED: INSULIN REGULAR HUMAN 100 UNITS/ML *VIAL SQ ONE (22:10)
[2020-03-30 23:10] LABS: BASO % 0.2 % (0-2.0); EOS % 0.9 % (0-4.5); HEMATOCRIT 38.4 % (35.4-49); HEMOGLOBIN 12.8 GM/dL (11.7-16.9); LYMPH % 3.7 % (8-40); MCH 28.1 pg (25.7-33.7); MCHC 33.3 g/dl (32.0-35.9); MEAN CELL VOLUME 84.3 fl (80-96); MEAN PLT VOLUME 9.8 fl (7.5-11.1); NEUT % 91.2 % (42.8-82.8); PLATELET COUNT 176 K/MM3 (134-434); RBC 4.55 M/mm3 (4.00-5.60); RDW 15.2 % (11.9-15.9); WHITE BLOOD COUNT 15.6 K/mm3 (4.0-10.0)
[2020-03-30] MEDS ORDERED: VANCOMYCIN 1,000 MG in DEXTROSE 5%-WATER - 250 ML IVPB ONE (23:20)
[2020-03-30 23:28] LABS: POTASSIUM 5.1 mmol/L (3.5-5.1)
[2020-03-30 23:29] LABS: CALCIUM 9.8 mg/dL (8.5-10.1)
[2020-03-30 23:31] LABS: ALBUMIN 3.8 g/dl (3.4-5.0); BLOOD UREA NITROGEN 35.1 mg/dL (7-18)
[2020-03-30 23:34] LABS: CREATININE 1.4 mg/dL (0.55-1.3)
[2020-03-30 23:35] LABS: BILIRUBIN,TOTAL 0.6 mg/dL (0.2-1); TOT PROT 7.7 g/dl (6.4-8.2)
[2020-03-30] MEDS ORDERED: SODIUM CHLORIDE 0.9% 500 ML INFUS.BAG IV ONE (23:38)
[2020-03-30] MEDS ORDERED: VANCOMYCIN 1 GRAM (PRE-DOCKED) 1,000 MG/250 ML BAG IVPB ONE (23:43)
[2020-03-31] MEDS ORDERED: SODIUM CHLORIDE NASAL SPRAY 44 ML BOTTLE NS PRN (04:24)
[2020-03-31] MEDS ORDERED: SENNOSIDES 8.6MG TABLET (FP) PO PRN (04:25)
[2020-03-31] MEDS ORDERED: MAGNESIUM HYDROX 2400MG/30ML ORAL SUSPENSION 30 ML CUP PO PRN (04:30)
[2020-03-31] MEDS ORDERED: ACETAMINOPHEN 325 MG TABLET (FP) PO PRN (04:33)
[2020-03-31] MEDS ORDERED: FUROSEMIDE 40 MG TABLET (FP) ONE ×2 (06:05→15:33)
[2020-03-31] MEDS: FUROSEMIDE 40 MG TABLET (FP) PO SCH ×2 (06:10→15:35)
[2020-03-31] MEDS ORDERED: INSULIN (NOVOLOG MIX 70/30) 100 UNITS/ML MDV SQ ONE ×2 (08:13→16:21)
[2020-03-31] MEDS: INSULIN SLIDING SCALE (NOVOLOG) 1 VIAL SQ SCH ×3 (08:15→16:48)
[2020-03-31] MEDS: METOCLOPRAMIDE HCL 10 MG TABLET (FP) PO SCH ×3 (08:15→16:32)
[2020-03-31] MEDS: INSULIN (NOVOLOG MIX 70/30) 100 UNITS/ML MDV SQ SCH ×2 (08:15→16:31)
[2020-03-31] MEDS ORDERED: METOCLOPRAMIDE HCL 10 MG TABLET (FP) PO ONE ×3 (08:22→16:20)
[2020-03-31] MEDS ORDERED: SPIRONOLACTONE 25 MG TABLET ONE (09:15)
[2020-03-31] MEDS ORDERED: PANTOPRAZOLE 40 MG TABLET ONE (09:15)
[2020-03-31] MEDS ORDERED: SERTRALINE HCL 50 MG TABLET (FP) ONE (09:15)
[2020-03-31] MEDS ORDERED: ASPIRIN COATED 81 MG TABLET.EC ONE (09:15)
[2020-03-31] MEDS ORDERED: ENOXAPARIN NA (PORCINE) 40 MG/0.4 ML DISP.SYRIN SQ ONE (09:16)
[2020-03-31] MEDS: SPIRONOLACTONE 25 MG TABLET PO SCH (09:27)
[2020-03-31] MEDS: ASPIRIN COATED 81 MG TABLET.EC PO SCH (09:28)
[2020-03-31] MEDS: POLYETHYLENE GLYCOL 3350 119 GM BTL PO SCH (09:28)
[2020-03-31] MEDS: ENOXAPARIN NA (PORCINE) 40 MG/0.4 ML DISP.SYRIN SQ SCH (09:28)
[2020-03-31] MEDS: SERTRALINE HCL 50 MG TABLET (FP) PO SCH (09:28)
[2020-03-31] MEDS: PANTOPRAZOLE 40 MG TABLET PO SCH (09:28)
[2020-03-31] MEDS ORDERED: COLLAGENASE CLOSTRIDIUM HIST. 30 GRAMS TUBE TP SCH (10:00)
[2020-03-31] MEDS ORDERED: amLODIPine BESYLATE 5 MG TABLET (FP) ONE (10:20)
[2020-03-31] MEDS ORDERED: cloNIDine HCL 0.1 MG TABLET ONE (10:21)
[2020-03-31] MEDS ORDERED: oxyCODONE HCL 5 MG TABLET ONE ×2 (10:21→16:39)
[2020-03-31] MEDS: CALCIUM 500MG/VIT-D 200 UNITS COMBO TABLET (FP) PO SCH ×2 (10:35→21:36)
[2020-03-31] MEDS: oxyCODONE HCL 5 MG TABLET PO PRN ×3 (10:35→22:28)
[2020-03-31] MEDS: LACTOBACILLUS ACIDOPHILUS 1 TABLET PO SCH (10:39)
[2020-03-31] MEDS: BACITRACIN 15 GM TUBE TOPICAL OINTMENT TP SCH (11:30)
[2020-03-31] MEDS: NYSTATIN 100000 UNIT/GM TOPICAL OINTMENT 15 GM TUBE TP SCH ×2 (11:30→22:27)
[2020-03-31] MEDS ORDERED: CEFEPIME HCL/D5W 1 GM/50 ML BAG IVPB SCH (11:45)
[2020-03-31] MEDS ORDERED: VANCOMYCIN 1 GRAM (PRE-DOCKED) 1,000 MG/250 ML BAG IVPB ONE (12:05)
[2020-03-31] MEDS ORDERED: CEFEPIME 1 GM/100 ML BAG IVPB ONE ×2 (12:05→18:15)
[2020-03-31] MEDS ORDERED: ALPRAZolam 1 MG TABLET ONE (12:19)
[2020-03-31] MEDS: ALPRAZolam 1 MG TABLET PO PRN ×2 (12:27→21:37)
[2020-03-31] MEDS: cloNIDine HCL 0.1 MG TABLET PO SCH ×2 (13:00→22:28)
[2020-03-31] MEDS: amLODIPine BESYLATE 5 MG TABLET (FP) PO SCH (13:00)
[2020-03-31] MEDS: VANCOMYCIN 1 GRAM (PRE-DOCKED) 1,000 MG/250 ML BAG IVPB SCH (13:15)
[2020-03-31 17:05] LABS: URINE APPEARANCE CLEAR; URINE BILIRUBIN NEGATIVE (NEGATIVE); URINE COLOR YELLOW; URINE GLUCOSE (UA) NEGATIVE (NEGATIVE); URINE KETONE NEGATIVE (NEGATIVE); URINE LEUK ESTERASE NEGATIVE (NEGATIVE); URINE NITRITE NEGATIVE (NEGATIVE); URINE PROTEIN NEGATIVE (NEGATIVE); URINE UROBILINOGEN 0.2 mg/dL (0.2-1.0)
[2020-03-31] MEDS: CEFEPIME 1 GM in DEXTROSE 5%-WATER 1 GM/100 ML BAG IVPB SCH (19:17)
[2020-03-31 20:20] VITALS: BMI 36.4
[2020-03-31] MEDS ORDERED: PNEUMOC 13-VAL CONJ-DIP CRM/PF 0.5 ML DISP.SYRIN IM ONE (20:20)
[2020-03-31] MEDS ORDERED: PNEUMOCOCCAL 23 VACCINE 0.5 ML VIAL IM ONE (21:15)
[2020-03-31] MEDS: ATORVASTATIN CA 20 MG TABLET (FP) PO SCH (21:37)
[2020-04-01] MEDS ORDERED: CEFEPIME HCL 1 GM VIAL (RESTRICTED TO ID) ONE ×2 (01:29→08:48)
[2020-04-01] MEDS ORDERED: DEXTROSE 5%-WATER 100 ML IVPB ONE ×2 (01:29→08:49)
[2020-04-01] MEDS: CEFEPIME 1 GM in DEXTROSE 5%-WATER 1 GM/100 ML BAG IVPB SCH ×2 (01:41→09:24)
[2020-04-01] MEDS: oxyCODONE HCL 5 MG TABLET PO PRN ×2 (02:23→05:38)
[2020-04-01] MEDS: VANCOMYCIN 1 GRAM (PRE-DOCKED) 1,000 MG/250 ML BAG IVPB SCH ×2 (02:25→12:57)
[2020-04-01] MEDS: FUROSEMIDE 40 MG TABLET (FP) PO SCH ×2 (05:39→15:15)
[2020-04-01] MEDS: INSULIN SLIDING SCALE (NOVOLOG) 1 VIAL SQ SCH ×3 (07:05→18:04)
[2020-04-01] MEDS: INSULIN (NOVOLOG MIX 70/30) 100 UNITS/ML MDV SQ SCH ×2 (07:07→18:04)
[2020-04-01] MEDS: METOCLOPRAMIDE HCL 10 MG TABLET (FP) PO SCH ×3 (07:08→18:05)
[2020-04-01 07:44] LABS: BASO % 0.7 % (0-2.0); EOS % 4.3 % (0-4.5); HEMATOCRIT 39.7 % (35.4-49); HEMOGLOBIN 13.3 GM/dL (11.7-16.9); LYMPH % 18.7 % (8-40); MCHC 33.4 g/dl (32.0-35.9); MEAN CELL VOLUME 83.8 fl (80-96); MEAN PLT VOLUME 9.2 fl (7.5-11.1); MONO % 10.1 % (3.8-10.2); NEUT % 66.2 % (42.8-82.8); PLATELET COUNT 184 K/MM3 (134-434); RBC 4.73 M/mm3 (4.00-5.60); RDW 15.3 % (11.9-15.9); WHITE BLOOD COUNT 7.3 K/mm3 (4.0-10.0)
[2020-04-01] MEDS ORDERED: INSULIN (NOVOLOG MIX 70/30) 100 UNITS/ML MDV SQ ONE (07:50)
[2020-04-01] MEDS ORDERED: INSULIN (NOVOLOG) ASPART 100 UNITS/ML 10ML VIAL ONE (07:50)
[2020-04-01 07:54] LABS: POTASSIUM 4.3 mmol/L (3.5-5.1)
[2020-04-01 07:56] LABS: CALCIUM 8.7 mg/dL (8.5-10.1)
[2020-04-01 07:57] LABS: ALBUMIN 3.3 g/dl (3.4-5.0); BLOOD UREA NITROGEN 26.9 mg/dL (7-18)
[2020-04-01 07:59] LABS: CREATININE 1.2 mg/dL (0.55-1.3)
[2020-04-01 08:01] LABS: BILIRUBIN,TOTAL 0.6 mg/dL (0.2-1)
[2020-04-01] MEDS: cloNIDine HCL 0.1 MG TABLET PO SCH ×2 (09:20→22:08)
[2020-04-01] MEDS: CALCIUM 500MG/VIT-D 200 UNITS COMBO TABLET (FP) PO SCH ×2 (09:20→22:08)
[2020-04-01] MEDS: PANTOPRAZOLE 40 MG TABLET PO SCH (09:21)
[2020-04-01] MEDS: SPIRONOLACTONE 25 MG TABLET PO SCH (09:21)
[2020-04-01] MEDS: amLODIPine BESYLATE 5 MG TABLET (FP) PO SCH (09:21)
[2020-04-01] MEDS: ASPIRIN COATED 81 MG TABLET.EC PO SCH (09:22)
[2020-04-01] MEDS: ENOXAPARIN NA (PORCINE) 40 MG/0.4 ML DISP.SYRIN SQ SCH (09:22)
[2020-04-01] MEDS: ALPRAZolam 1 MG TABLET PO PRN ×3 (09:23→22:12)
[2020-04-01] MEDS: LACTOBACILLUS ACIDOPHILUS 1 TABLET PO SCH (09:23)
[2020-04-01] MEDS ORDERED: PT OWN MED DRAWER 7, Y5N ONE (09:30)
[2020-04-01] MEDS: SERTRALINE HCL 50 MG TABLET (FP) PO SCH (09:52)
[2020-04-01] MEDS: oxyCODONE HCL 5 MG TABLET PO SCH ×5 (12:08→22:07)
[2020-04-01] MEDS: POLYETHYLENE GLYCOL 3350 119 GM BTL PO SCH (12:47)
[2020-04-01] MEDS: BACITRACIN 15 GM TUBE TOPICAL OINTMENT TP SCH (13:12)
[2020-04-01] MEDS: NYSTATIN 100000 UNIT/GM TOPICAL OINTMENT 15 GM TUBE TP SCH ×3 (13:12→22:37)
[2020-04-01] MEDS: COLLAGENASE CLOSTRIDIUM HIST. 30 GRAMS TUBE TP SCH (18:08)
[2020-04-01] MEDS: DOCUSATE SODIUM 100 MG CAPSULE (FP) PO PRN (22:08)
[2020-04-01] MEDS: ATORVASTATIN CA 20 MG TABLET (FP) PO SCH (22:08)
[2020-04-01] MEDS: ARTIFICIAL TEARS (POLYVINYL ALCOHOL) OPTH DROPS OU PRN (22:38)
[2020-04-02] MEDS: VANCOMYCIN 1 GRAM (PRE-DOCKED) 1,000 MG/250 ML BAG IVPB SCH ×2 (01:45→12:49)
[2020-04-02] MEDS: oxyCODONE HCL 5 MG TABLET PO SCH ×8 (01:46→22:05)
[2020-04-02] MEDS: METOCLOPRAMIDE HCL 10 MG TABLET (FP) PO SCH ×3 (06:15→16:13)
[2020-04-02] MEDS: INSULIN (NOVOLOG MIX 70/30) 100 UNITS/ML MDV SQ SCH ×2 (06:15→16:20)
[2020-04-02] MEDS: INSULIN SLIDING SCALE (NOVOLOG) 1 VIAL SQ SCH ×3 (06:15→16:19)
[2020-04-02] MEDS: FUROSEMIDE 40 MG TABLET (FP) PO SCH ×2 (06:15→14:08)
[2020-04-02 08:39] LABS: BASO % 0.6 % (0-2.0); HEMATOCRIT 41.6 % (35.4-49); HEMOGLOBIN 13.9 GM/dL (11.7-16.9); LYMPH % 26.6 % (8-40); MCH 27.8 pg (25.7-33.7); MCHC 33.3 g/dl (32.0-35.9); MEAN CELL VOLUME 83.4 fl (80-96); MEAN PLT VOLUME 9.4 fl (7.5-11.1); MONO % 6.9 % (3.8-10.2); NEUT % 60.9 % (42.8-82.8); PLATELET COUNT 213 K/MM3 (134-434); RBC 4.99 M/mm3 (4.00-5.60); RDW 14.8 % (11.9-15.9); WHITE BLOOD COUNT 9.6 K/mm3 (4.0-10.0)
[2020-04-02 08:58] LABS: POTASSIUM 3.8 mmol/L (3.5-5.1)
[2020-04-02 09:08] LABS: BILIRUBIN,TOTAL 0.4 mg/dL (0.2-1); BLOOD UREA NITROGEN 25.7 mg/dL (7-18); TOT PROT 7.4 g/dl (6.4-8.2)
[2020-04-02 09:10] LABS: CREATININE 1.3 mg/dL (0.55-1.3)
[2020-04-02 09:11] LABS: ALBUMIN 3.7 g/dl (3.4-5.0); CALCIUM 9.1 mg/dL (8.5-10.1)
[2020-04-02] MEDS: CALCIUM 500MG/VIT-D 200 UNITS COMBO TABLET (FP) PO SCH ×2 (09:49→21:17)
[2020-04-02] MEDS: LACTOBACILLUS ACIDOPHILUS 1 TABLET PO SCH (09:49)
[2020-04-02] MEDS: cloNIDine HCL 0.1 MG TABLET PO SCH ×2 (09:49→21:17)
[2020-04-02] MEDS: amLODIPine BESYLATE 5 MG TABLET (FP) PO SCH (09:49)
[2020-04-02] MEDS: ASPIRIN COATED 81 MG TABLET.EC PO SCH (09:49)
[2020-04-02] MEDS: SERTRALINE HCL 50 MG TABLET (FP) PO SCH (09:49)
[2020-04-02] MEDS: SPIRONOLACTONE 25 MG TABLET PO SCH (09:49)
[2020-04-02] MEDS: ENOXAPARIN NA (PORCINE) 40 MG/0.4 ML DISP.SYRIN SQ SCH (09:49)
[2020-04-02] MEDS: PANTOPRAZOLE 40 MG TABLET PO SCH (09:51)
[2020-04-02] MEDS: BACITRACIN 15 GM TUBE TOPICAL OINTMENT TP SCH (09:51)
[2020-04-02] MEDS: COLLAGENASE CLOSTRIDIUM HIST. 30 GRAMS TUBE TP SCH (09:52)
[2020-04-02] MEDS: NYSTATIN 100000 UNIT/GM TOPICAL OINTMENT 15 GM TUBE TP SCH ×2 (09:52→22:10)
[2020-04-02] MEDS: POLYETHYLENE GLYCOL 3350 119 GM BTL PO SCH (09:52)
[2020-04-02] MEDS: ARTIFICIAL TEARS (POLYVINYL ALCOHOL) OPTH DROPS OU PRN (09:53)
[2020-04-02] MEDS: ALPRAZolam 1 MG TABLET PO PRN ×2 (11:15→22:05)
[2020-04-02] MEDS: ATORVASTATIN CA 20 MG TABLET (FP) PO SCH (21:17)
[2020-04-03] MEDS: VANCOMYCIN 1 GRAM (PRE-DOCKED) 1,000 MG/250 ML BAG IVPB SCH ×2 (00:31→15:21)
[2020-04-03] MEDS: oxyCODONE HCL 5 MG TABLET PO SCH ×8 (01:22→22:35)
[2020-04-03] MEDS: METOCLOPRAMIDE HCL 10 MG TABLET (FP) PO SCH ×3 (06:24→18:04)
[2020-04-03] MEDS: INSULIN SLIDING SCALE (NOVOLOG) 1 VIAL SQ SCH ×3 (06:24→18:02)
[2020-04-03] MEDS: FUROSEMIDE 40 MG TABLET (FP) PO SCH ×2 (06:24→15:21)
[2020-04-03] MEDS: INSULIN (NOVOLOG MIX 70/30) 100 UNITS/ML MDV SQ SCH ×2 (06:25→18:02)
[2020-04-03] MEDS: SPIRONOLACTONE 25 MG TABLET PO SCH (11:16)
[2020-04-03] MEDS: ASPIRIN COATED 81 MG TABLET.EC PO SCH (11:16)
[2020-04-03] MEDS: CALCIUM 500MG/VIT-D 200 UNITS COMBO TABLET (FP) PO SCH ×2 (11:16→22:36)
[2020-04-03] MEDS: SERTRALINE HCL 50 MG TABLET (FP) PO SCH (11:16)
[2020-04-03] MEDS: PANTOPRAZOLE 40 MG TABLET PO SCH (11:17)
[2020-04-03] MEDS: ALPRAZolam 1 MG TABLET PO PRN ×2 (11:17→23:01)
[2020-04-03] MEDS: cloNIDine HCL 0.1 MG TABLET PO SCH ×2 (11:18→22:36)
[2020-04-03] MEDS: amLODIPine BESYLATE 5 MG TABLET (FP) PO SCH (11:18)
[2020-04-03] MEDS: ENOXAPARIN NA (PORCINE) 40 MG/0.4 ML DISP.SYRIN SQ SCH (11:19)
[2020-04-03] MEDS: LACTOBACILLUS ACIDOPHILUS 1 TABLET PO SCH (11:20)
[2020-04-03] MEDS: BACITRACIN 15 GM TUBE TOPICAL OINTMENT TP SCH (11:20)
[2020-04-03] MEDS: NYSTATIN 100000 UNIT/GM TOPICAL OINTMENT 15 GM TUBE TP SCH ×2 (11:21→22:37)
[2020-04-03] MEDS: COLLAGENASE CLOSTRIDIUM HIST. 30 GRAMS TUBE TP SCH (11:21)
[2020-04-03] MEDS: POLYETHYLENE GLYCOL 3350 119 GM BTL PO SCH (11:21)
[2020-04-03] MEDS: ATORVASTATIN CA 20 MG TABLET (FP) PO SCH (22:36)
[2020-04-03] MEDS: ARTIFICIAL TEARS (POLYVINYL ALCOHOL) OPTH DROPS OU PRN (22:37)
[2020-04-04] MEDS: oxyCODONE HCL 5 MG TABLET PO SCH ×8 (01:15→21:32)
[2020-04-04] MEDS: VANCOMYCIN 1 GRAM (PRE-DOCKED) 1,000 MG/250 ML BAG IVPB SCH ×2 (03:11→13:04)
[2020-04-04] MEDS: FUROSEMIDE 40 MG TABLET (FP) PO SCH ×2 (06:48→13:04)
[2020-04-04] MEDS: METOCLOPRAMIDE HCL 10 MG TABLET (FP) PO SCH ×3 (06:48→16:02)
[2020-04-04] MEDS: INSULIN SLIDING SCALE (NOVOLOG) 1 VIAL SQ SCH ×3 (06:49→16:49)
[2020-04-04] MEDS: INSULIN (NOVOLOG MIX 70/30) 100 UNITS/ML MDV SQ SCH ×2 (06:51→16:49)
[2020-04-04 08:52] LABS: BASO % 0.6 % (0-2.0); EOS % 3.6 % (0-4.5); HEMATOCRIT 40.8 % (35.4-49); HEMOGLOBIN 13.7 GM/dL (11.7-16.9); LYMPH % 24.4 % (8-40); MCH 27.7 pg (25.7-33.7); MCHC 33.6 g/dl (32.0-35.9); MEAN CELL VOLUME 82.4 fl (80-96); MEAN PLT VOLUME 9.6 fl (7.5-11.1); MONO % 5.8 % (3.8-10.2); NEUT % 65.6 % (42.8-82.8); PLATELET COUNT 205 K/MM3 (134-434); RBC 4.95 M/mm3 (4.00-5.60); RDW 14.6 % (11.9-15.9); WHITE BLOOD COUNT 7.8 K/mm3 (4.0-10.0)
[2020-04-04 09:15] LABS: POTASSIUM 3.9 mmol/L (3.5-5.1)
[2020-04-04 09:19] LABS: BLOOD UREA NITROGEN 25.7 mg/dL (7-18); CALCIUM 9.3 mg/dL (8.5-10.1)
[2020-04-04 09:22] LABS: CREATININE 1.3 mg/dL (0.55-1.3)
[2020-04-04] MEDS ORDERED: PT OWN MED DRAWER 7, Y5N ONE (09:52)
[2020-04-04] MEDS: ASPIRIN COATED 81 MG TABLET.EC PO SCH (10:10)
[2020-04-04] MEDS: amLODIPine BESYLATE 5 MG TABLET (FP) PO SCH (10:11)
[2020-04-04] MEDS: cloNIDine HCL 0.1 MG TABLET PO SCH ×2 (10:12→21:32)
[2020-04-04] MEDS: SPIRONOLACTONE 25 MG TABLET PO SCH (10:12)
[2020-04-04] MEDS: CALCIUM 500MG/VIT-D 200 UNITS COMBO TABLET (FP) PO SCH ×2 (10:12→21:32)
[2020-04-04] MEDS: SERTRALINE HCL 50 MG TABLET (FP) PO SCH (10:12)
[2020-04-04] MEDS: PANTOPRAZOLE 40 MG TABLET PO SCH (10:12)
[2020-04-04] MEDS: ENOXAPARIN NA (PORCINE) 40 MG/0.4 ML DISP.SYRIN SQ SCH (10:13)
[2020-04-04] MEDS: POLYETHYLENE GLYCOL 3350 119 GM BTL PO SCH (10:13)
[2020-04-04] MEDS: LACTOBACILLUS ACIDOPHILUS 1 TABLET PO SCH (10:13)
[2020-04-04] MEDS: BACITRACIN 15 GM TUBE TOPICAL OINTMENT TP SCH (10:14)
[2020-04-04] MEDS: COLLAGENASE CLOSTRIDIUM HIST. 30 GRAMS TUBE TP SCH (10:14)
[2020-04-04] MEDS: NYSTATIN 100000 UNIT/GM TOPICAL OINTMENT 15 GM TUBE TP SCH ×2 (10:14→21:34)
[2020-04-04] MEDS: ALPRAZolam 1 MG TABLET PO PRN ×2 (10:20→20:12)
[2020-04-04] MEDS ORDERED: INSULIN (NOVOLOG MIX 70/30) 100 UNITS/ML MDV SQ ONE (17:07)
[2020-04-04] MEDS ORDERED: INSULIN (NOVOLOG) ASPART 100 UNITS/ML 10ML VIAL ONE (17:07)
[2020-04-04] MEDS: ATORVASTATIN CA 20 MG TABLET (FP) PO SCH (21:32)
[2020-04-05] MEDS: oxyCODONE HCL 5 MG TABLET PO SCH ×8 (01:29→21:36)
[2020-04-05] MEDS: VANCOMYCIN 1 GRAM (PRE-DOCKED) 1,000 MG/250 ML BAG IVPB SCH ×2 (01:30→13:41)
[2020-04-05] MEDS: FUROSEMIDE 40 MG TABLET (FP) PO SCH ×2 (05:28→13:41)
[2020-04-05] MEDS: INSULIN (NOVOLOG MIX 70/30) 100 UNITS/ML MDV SQ SCH ×2 (06:07→16:32)
[2020-04-05] MEDS: METOCLOPRAMIDE HCL 10 MG TABLET (FP) PO SCH ×3 (06:08→16:28)
[2020-04-05] MEDS: INSULIN SLIDING SCALE (NOVOLOG) 1 VIAL SQ SCH ×3 (06:08→16:33)
[2020-04-05] MEDS: cloNIDine HCL 0.1 MG TABLET PO SCH ×2 (09:53→21:06)
[2020-04-05] MEDS: ASPIRIN COATED 81 MG TABLET.EC PO SCH (09:53)
[2020-04-05] MEDS: PANTOPRAZOLE 40 MG TABLET PO SCH (09:53)
[2020-04-05] MEDS: SPIRONOLACTONE 25 MG TABLET PO SCH (09:53)
[2020-04-05] MEDS: SERTRALINE HCL 50 MG TABLET (FP) PO SCH (09:54)
[2020-04-05] MEDS: ALPRAZolam 1 MG TABLET PO PRN ×2 (09:54→21:07)
[2020-04-05] MEDS: ENOXAPARIN NA (PORCINE) 40 MG/0.4 ML DISP.SYRIN SQ SCH (09:54)
[2020-04-05] MEDS: amLODIPine BESYLATE 5 MG TABLET (FP) PO SCH (09:55)
[2020-04-05] MEDS: LACTOBACILLUS ACIDOPHILUS 1 TABLET PO SCH (09:55)
[2020-04-05] MEDS: CALCIUM 500MG/VIT-D 200 UNITS COMBO TABLET (FP) PO SCH ×2 (09:55→21:06)
[2020-04-05] MEDS: POLYETHYLENE GLYCOL 3350 119 GM BTL PO SCH (09:56)
[2020-04-05] MEDS: COLLAGENASE CLOSTRIDIUM HIST. 30 GRAMS TUBE TP SCH (13:46)
[2020-04-05] MEDS: BACITRACIN 15 GM TUBE TOPICAL OINTMENT TP SCH (13:47)
[2020-04-05] MEDS: NYSTATIN 100000 UNIT/GM TOPICAL OINTMENT 15 GM TUBE TP SCH ×2 (13:48→21:06)
[2020-04-05] MEDS ORDERED: INSULIN (NOVOLOG) ASPART 100 UNITS/ML 10ML VIAL ONE (16:47)
[2020-04-05] MEDS: ATORVASTATIN CA 20 MG TABLET (FP) PO SCH (21:06)
[2020-04-06] MEDS: oxyCODONE HCL 5 MG TABLET PO SCH ×8 (01:20→21:29)
[2020-04-06] MEDS: VANCOMYCIN 1 GRAM (PRE-DOCKED) 1,000 MG/250 ML BAG IVPB SCH ×2 (01:33→12:20)
[2020-04-06] MEDS: INSULIN SLIDING SCALE (NOVOLOG) 1 VIAL SQ SCH ×3 (06:05→17:07)
[2020-04-06] MEDS: FUROSEMIDE 40 MG TABLET (FP) PO SCH ×2 (06:06→13:02)
[2020-04-06] MEDS: METOCLOPRAMIDE HCL 10 MG TABLET (FP) PO SCH ×3 (06:06→16:33)
[2020-04-06] MEDS: INSULIN (NOVOLOG MIX 70/30) 100 UNITS/ML MDV SQ SCH ×2 (06:06→17:08)
[2020-04-06] MEDS ORDERED: INSULIN (NOVOLOG) ASPART 100 UNITS/ML 10ML VIAL ONE ×2 (06:11→20:34)
[2020-04-06 08:44] LABS: BASO % 0.6 % (0-2.0); EOS % 3.5 % (0-4.5); HEMATOCRIT 39.5 % (35.4-49); HEMOGLOBIN 13.2 GM/dL (11.7-16.9); LYMPH % 29.8 % (8-40); MCH 27.9 pg (25.7-33.7); MCHC 33.5 g/dl (32.0-35.9); MEAN CELL VOLUME 83.3 fl (80-96); MONO % 6.3 % (3.8-10.2); NEUT % 59.8 % (42.8-82.8); PLATELET COUNT 179 K/MM3 (134-434); RBC 4.74 M/mm3 (4.00-5.60); RDW 14.8 % (11.9-15.9); WHITE BLOOD COUNT 7.6 K/mm3 (4.0-10.0)
[2020-04-06 09:05] LABS: POTASSIUM 3.5 mmol/L (3.5-5.1)
[2020-04-06 09:09] LABS: ALBUMIN 3.5 g/dl (3.4-5.0); CALCIUM 8.8 mg/dL (8.5-10.1)
[2020-04-06 09:12] LABS: CREATININE 1.2 mg/dL (0.55-1.3)
[2020-04-06 09:13] LABS: BILIRUBIN,TOTAL 0.6 mg/dL (0.2-1)
[2020-04-06] MEDS: amLODIPine BESYLATE 5 MG TABLET (FP) PO SCH (09:47)
[2020-04-06] MEDS: ENOXAPARIN NA (PORCINE) 40 MG/0.4 ML DISP.SYRIN SQ SCH (09:47)
[2020-04-06] MEDS: LACTOBACILLUS ACIDOPHILUS 1 TABLET PO SCH (09:47)
[2020-04-06] MEDS: CALCIUM 500MG/VIT-D 200 UNITS COMBO TABLET (FP) PO SCH ×2 (09:47→21:30)
[2020-04-06] MEDS: SERTRALINE HCL 50 MG TABLET (FP) PO SCH (09:47)
[2020-04-06] MEDS: cloNIDine HCL 0.1 MG TABLET PO SCH ×2 (09:47→21:30)
[2020-04-06] MEDS: SPIRONOLACTONE 25 MG TABLET PO SCH (09:47)
[2020-04-06] MEDS: PANTOPRAZOLE 40 MG TABLET PO SCH (09:47)
[2020-04-06] MEDS: ASPIRIN COATED 81 MG TABLET.EC PO SCH (09:47)
[2020-04-06] MEDS: BACITRACIN 15 GM TUBE TOPICAL OINTMENT TP SCH (09:59)
[2020-04-06] MEDS: NYSTATIN 100000 UNIT/GM TOPICAL OINTMENT 15 GM TUBE TP SCH ×2 (09:59→21:30)
[2020-04-06] MEDS: COLLAGENASE CLOSTRIDIUM HIST. 30 GRAMS TUBE TP SCH (10:02)
[2020-04-06] MEDS: ALPRAZolam 1 MG TABLET PO PRN ×2 (10:03→16:33)
[2020-04-06] MEDS: POLYETHYLENE GLYCOL 3350 119 GM BTL PO SCH (10:39)
[2020-04-06] MEDS ORDERED: SODIUM PHOSPHATE/NA BIPHOS 133 ML ENEMA RC ONE (11:30)
[2020-04-06] MEDS ORDERED: INSULIN (NOVOLOG MIX 70/30) 100 UNITS/ML MDV SQ ONE (16:50)
[2020-04-06] MEDS: ATORVASTATIN CA 20 MG TABLET (FP) PO SCH (21:30)
[2020-04-07] MEDS: VANCOMYCIN 1 GRAM (PRE-DOCKED) 1,000 MG/250 ML BAG IVPB SCH (01:30)
[2020-04-07] MEDS: oxyCODONE HCL 5 MG TABLET PO SCH ×8 (01:30→22:54)
[2020-04-07] MEDS: FUROSEMIDE 40 MG TABLET (FP) PO SCH ×2 (07:05→14:38)
[2020-04-07] MEDS: INSULIN (NOVOLOG MIX 70/30) 100 UNITS/ML MDV SQ SCH ×2 (07:05→17:55)
[2020-04-07] MEDS: INSULIN SLIDING SCALE (NOVOLOG) 1 VIAL SQ SCH ×3 (07:08→16:48)
[2020-04-07] MEDS: METOCLOPRAMIDE HCL 10 MG TABLET (FP) PO SCH ×3 (07:09→16:23)
[2020-04-07] MEDS ORDERED: MINERAL OIL ENEMA 133 ML ENEMA RC ONE (08:45)
[2020-04-07] MEDS: SPIRONOLACTONE 25 MG TABLET PO SCH (10:14)
[2020-04-07] MEDS: SERTRALINE HCL 50 MG TABLET (FP) PO SCH (10:14)
[2020-04-07] MEDS: amLODIPine BESYLATE 5 MG TABLET (FP) PO SCH (10:14)
[2020-04-07] MEDS: PANTOPRAZOLE 40 MG TABLET PO SCH (10:14)
[2020-04-07] MEDS: cloNIDine HCL 0.1 MG TABLET PO SCH ×2 (10:14→22:56)
[2020-04-07] MEDS: ASPIRIN COATED 81 MG TABLET.EC PO SCH (10:14)
[2020-04-07] MEDS: LACTOBACILLUS ACIDOPHILUS 1 TABLET PO SCH (10:14)
[2020-04-07] MEDS: CALCIUM 500MG/VIT-D 200 UNITS COMBO TABLET (FP) PO SCH ×2 (10:14→22:56)
[2020-04-07] MEDS: ALPRAZolam 1 MG TABLET PO PRN ×2 (10:15→22:57)
[2020-04-07] MEDS: NYSTATIN 100000 UNIT/GM TOPICAL OINTMENT 15 GM TUBE TP SCH ×2 (10:16→22:57)
[2020-04-07] MEDS: ENOXAPARIN NA (PORCINE) 40 MG/0.4 ML DISP.SYRIN SQ SCH (10:16)
[2020-04-07] MEDS: COLLAGENASE CLOSTRIDIUM HIST. 30 GRAMS TUBE TP SCH (10:16)
[2020-04-07] MEDS: BACITRACIN 15 GM TUBE TOPICAL OINTMENT TP SCH (10:17)
[2020-04-07] MEDS: POLYETHYLENE GLYCOL 3350 119 GM BTL PO SCH ×2 (11:46→22:56)
[2020-04-07] MEDS: ATORVASTATIN CA 20 MG TABLET (FP) PO SCH (22:56)
[2020-04-07] MEDS: DOCUSATE SODIUM 100 MG CAPSULE (FP) PO PRN (22:58)
[2020-04-07 23:45] VITALS: TEMP 98
[2020-04-08] MEDS: oxyCODONE HCL 5 MG TABLET PO SCH ×6 (01:49→17:10)
[2020-04-08] MEDS: FUROSEMIDE 40 MG TABLET (FP) PO SCH ×2 (05:10→13:43)
[2020-04-08] MEDS: INSULIN SLIDING SCALE (NOVOLOG) 1 VIAL SQ SCH ×3 (07:08→17:10)
[2020-04-08] MEDS: INSULIN (NOVOLOG MIX 70/30) 100 UNITS/ML MDV SQ SCH ×2 (07:09→17:10)
[2020-04-08] MEDS: METOCLOPRAMIDE HCL 10 MG TABLET (FP) PO SCH ×3 (07:09→17:44)
[2020-04-08] MEDS ORDERED: PT OWN MED DRAWER 7, Y5N ONE (10:40)
[2020-04-08] MEDS: PANTOPRAZOLE 40 MG TABLET PO SCH (10:43)
[2020-04-08] MEDS: ENOXAPARIN NA (PORCINE) 40 MG/0.4 ML DISP.SYRIN SQ SCH (10:43)
[2020-04-08] MEDS: CALCIUM 500MG/VIT-D 200 UNITS COMBO TABLET (FP) PO SCH (10:43)
[2020-04-08] MEDS: amLODIPine BESYLATE 5 MG TABLET (FP) PO SCH (10:43)
[2020-04-08] MEDS: LACTOBACILLUS ACIDOPHILUS 1 TABLET PO SCH (10:43)
[2020-04-08] MEDS: SERTRALINE HCL 50 MG TABLET (FP) PO SCH (10:43)
[2020-04-08] MEDS: SPIRONOLACTONE 25 MG TABLET PO SCH (10:44)
[2020-04-08] MEDS: cloNIDine HCL 0.1 MG TABLET PO SCH (10:44)
[2020-04-08] MEDS: ASPIRIN COATED 81 MG TABLET.EC PO SCH (10:44)
[2020-04-08] MEDS: POLYETHYLENE GLYCOL 3350 119 GM BTL PO SCH (10:45)
[2020-04-08] MEDS: BACITRACIN 15 GM TUBE TOPICAL OINTMENT TP SCH (10:46)
[2020-04-08] MEDS: NYSTATIN 100000 UNIT/GM TOPICAL OINTMENT 15 GM TUBE TP SCH (10:51)
[2020-04-08] MEDS: ALPRAZolam 1 MG TABLET PO PRN (11:42)
[2020-04-08] MEDS: COLLAGENASE CLOSTRIDIUM HIST. 30 GRAMS TUBE TP SCH (11:47)
[2020-04-08 16:17] VITALS: BP 138/75; PULSE 53
== END 2020-04-08 17:18 | disposition home health service (06) | DRG 721 ==
LOC: JER 21:23 → JERBED 03-31 02:37 → J8W 03-31 18:29
PROVIDERS: ADMIT Internal Medicine; ATTEND Internal Medicine
DX: T80.211A Bloodstream infection due to central venous catheter, initial encounter (principal); E78.5 Hyperlipidemia, unspecified; D72.829 Elevated white blood cell count, unspecified; A40.9 Streptococcal sepsis, unspecified; M54.9 Dorsalgia, unspecified; G89.29 Other chronic pain; F41.8 Other specified anxiety disorders; K74.60 Unspecified cirrhosis of liver; R16.1 Splenomegaly, not elsewhere classified; E11.621 Type 2 diabetes mellitus with foot ulcer; E87.1 Hypo-osmolality and hyponatremia; L97.509 Non-pressure chronic ulcer of other part of unspecified foot with unspecified severity; M86.172 Other acute osteomyelitis, left ankle and foot; E11.69 Type 2 diabetes mellitus with other specified complication; M86.672 Other chronic osteomyelitis, left ankle and foot; I11.0 Hypertensive heart disease with heart failure; I50.30 Unspecified diastolic (congestive) heart failure; R50.9 Fever, unspecified; E11.42 Type 2 diabetes mellitus with diabetic polyneuropathy; M54.5 Low back pain; R10.9 Unspecified abdominal pain; I25.10 Atherosclerotic heart disease of native coronary artery without angina pectoris; I25.2 Old myocardial infarction; K59.09 Other constipation; Z89.511 Acquired absence of right leg below knee; Z22.322 Carrier or suspected carrier of Methicillin resistant Staphylococcus aureus
CPT/HCPCS: 36415; 71045-TC-FY; 73630-TC-LT; 74177-TC; 80048; 80053; 81003; 82962; 83605; 85025; 87040; 87086; 87186; 87804; 93005; 93010; 93306-TC; 99285-25; C9803; G0480; J0735; U0003

== ENCOUNTER 2020-04-10 13:34 | Emergency (ER) | payer OTHER ==
[2020-04-10 13:49] VITALS: BMI 36.9
[2020-04-10 14:43] LABS: BASO % 0.4 % (0-2.0); EOS % 4.8 % (0-4.5); HEMATOCRIT 36.1 % (35.4-49); HEMOGLOBIN 12.2 GM/dL (11.7-16.9); LYMPH % 25.8 % (8-40); MCH 28.2 pg (25.7-33.7); MCHC 33.8 g/dl (32.0-35.9); MEAN CELL VOLUME 83.3 fl (80-96); MEAN PLT VOLUME 10.6 fl (7.5-11.1); MONO % 8.2 % (3.8-10.2); NEUT % 60.8 % (42.8-82.8); PLATELET COUNT 150 K/MM3 (134-434); RBC 4.33 M/mm3 (4.00-5.60); RDW 14.7 % (11.9-15.9); WHITE BLOOD COUNT 8.3 K/mm3 (4.0-10.0)
[2020-04-10 14:52] LABS: CHLORIDE 100 mmol/L (98-107); SODIUM 137 mmol/L (136-145)
[2020-04-10 14:54] LABS: ALBUMIN 3.7 g/dl (3.4-5.0); ANION GAP 4 MMOL/L (8-16); BLOOD UREA NITROGEN 35.3 mg/dL (7-18); CALCIUM 8.5 mg/dL (8.5-10.1); CO2 33 mmol/L (21-32); GLUCOSE,RANDOM 111 mg/dL (74-106)
[2020-04-10 14:57] LABS: CREATININE 1.5 mg/dL (0.55-1.3); SGOT/AST 95 U/L (15-37); SGPT/ALT 40 U/L (13-61)
[2020-04-10] MEDS ORDERED: SODIUM CHLORIDE 500 ML IV STA (14:57)
[2020-04-10 14:59] LABS: TOT PROT 7.2 g/dl (6.4-8.2)
[2020-04-10 15:00] LABS: ALK PHOS 93 U/L (45-117); BILIRUBIN,TOTAL 0.6 mg/dL (0.2-1)
[2020-04-10] MEDS ORDERED: SODIUM CHLORIDE 0.9% 500 ML INFUS.BAG IV ONE ×3 (15:48→19:25)
[2020-04-10 19:21] LABS: CALCIUM 8.7 mg/dL (8.5-10.1)
[2020-04-10 19:22] LABS: BLOOD UREA NITROGEN 32.3 mg/dL (7-18)
[2020-04-10 19:25] LABS: CREATININE 1.4 mg/dL (0.55-1.3)
[2020-04-10 23:44] LABS: CALCIUM 7.9 mg/dL (8.5-10.1)
[2020-04-10 23:45] LABS: BLOOD UREA NITROGEN 30.6 mg/dL (7-18)
[2020-04-10 23:48] LABS: CREATININE 1.2 mg/dL (0.55-1.3)
[2020-04-11 01:41] VITALS: BP 136/64; PULSE 61; TEMP 97.7
== END 2020-04-11 01:20 | disposition home or self-care (01) ==
LOC: JER 13:34
PROC: 3E0337Z Introduction of Electrolytic and Water Balance Substance into Peripheral Vein, Percutaneous Approach (ICD-10-PCS; principal; 2020-04-10)
DX: T50.901A Poisoning by unspecified drugs, medicaments and biological substances, accidental (unintentional), initial encounter (principal)
CPT/HCPCS: 36415; 71045-TC-FY; 80048; 80053; 80307; 85025; 93005; 93010; 99285-25

== ENCOUNTER 2020-04-15 12:06 | Inpatient (IN) | payer OTHER ==
[2020-04-15 14:25] LABS: BASO % 0.2 % (0-2.0); EOS % 2.4 % (0-4.5); HEMATOCRIT 36.5 % (35.4-49); LYMPH % 20.3 % (8-40); MCH 27.8 pg (25.7-33.7); MCHC 32.8 g/dl (32.0-35.9); MEAN CELL VOLUME 84.8 fl (80-96); MEAN PLT VOLUME 9.6 fl (7.5-11.1); MONO % 5.6 % (3.8-10.2); NEUT % 71.5 % (42.8-82.8); PLATELET COUNT 119 K/MM3 (134-434); RDW 15.1 % (11.9-15.9); WHITE BLOOD COUNT 10.3 K/mm3 (4.0-10.0)
[2020-04-15 14:47] LABS: CHLORIDE 99 mmol/L (98-107); POTASSIUM 4.4 mmol/L (3.5-5.1); SODIUM 137 mmol/L (136-145)
[2020-04-15 14:49] LABS: CALCIUM 8.3 mg/dL (8.5-10.1)
[2020-04-15 14:50] LABS: ALBUMIN 3.3 g/dl (3.4-5.0); ANION GAP 5 MMOL/L (8-16); BLOOD UREA NITROGEN 21.3 mg/dL (7-18); CO2 33 mmol/L (21-32); GLUCOSE,RANDOM 230 mg/dL (74-106)
[2020-04-15 14:53] LABS: SGOT/AST 110 U/L (15-37); SGPT/ALT 50 U/L (13-61)
[2020-04-15 14:54] LABS: BILIRUBIN,TOTAL 0.6 mg/dL (0.2-1); TOT PROT 6.6 g/dl (6.4-8.2)
[2020-04-15 14:55] LABS: ALK PHOS 84 U/L (45-117)
[2020-04-15] MEDS ORDERED: LACTATED RINGERS SOLUTION 1000 ML INFUS.BAG IV ONE (15:20)
[2020-04-15] MEDS ORDERED: VANCOMYCIN 1 GM in D5W (PRE-DOCKED) 1,000 MG/250 ML IVPB ONE (16:25)
[2020-04-15 17:30] LABS: ERYTHROCYTE SEDIMENTATION RATE 18 mm/hr (0-20)
[2020-04-15] MEDS ORDERED: MAGNESIUM HYDROX 2400MG/30ML ORAL SUSPENSION 30 ML CUP PO PRN (19:07)
[2020-04-15] MEDS ORDERED: SODIUM CHLORIDE NASAL SPRAY 44 ML BOTTLE NS PRN (19:14)
[2020-04-15] MEDS ORDERED: ENOXAPARIN NA (PORCINE) 40 MG/0.4 ML DISP.SYRIN SQ ONE (19:14)
[2020-04-15] MEDS ORDERED: VANCOMYCIN 1 GRAM (PRE-DOCKED) 1,000 MG/250 ML BAG IVPB ONE (19:14)
[2020-04-15] MEDS ORDERED: SENNOSIDES 8.6MG TABLET (FP) PO PRN (19:15)
[2020-04-15] MEDS ORDERED: ARTIFICIAL TEARS (POLYVINYL ALCOHOL) OPTH DROPS OU PRN (19:16)
[2020-04-15] MEDS ORDERED: ACETAMINOPHEN 325 MG TABLET (FP) PO PRN (19:20)
[2020-04-15] MEDS ORDERED: DOCUSATE SODIUM 100 MG CAPSULE (FP) PO PRN (19:20)
[2020-04-15] MEDS: ENOXAPARIN NA (PORCINE) 40 MG/0.4 ML DISP.SYRIN SQ SCH (19:25)
[2020-04-15] MEDS ORDERED: oxyCODONE HCL 5 MG TABLET ONE ×2 (20:15→23:34)
[2020-04-15] MEDS: oxyCODONE HCL 5 MG TABLET PO SCH ×2 (20:20→23:39)
[2020-04-15] MEDS: INSULIN SLIDING SCALE (NOVOLOG) 1 VIAL SQ SCH (20:20)
[2020-04-15] MEDS ORDERED: ATORVASTATIN CA 20 MG TABLET (FP) ONE (22:19)
[2020-04-15] MEDS ORDERED: cloNIDine HCL 0.1 MG TABLET ONE (22:20)
[2020-04-15] MEDS: ATORVASTATIN CA 20 MG TABLET (FP) PO SCH (23:39)
[2020-04-15] MEDS: cloNIDine HCL 0.1 MG TABLET PO SCH (23:39)
[2020-04-15] MEDS: CALCIUM 500MG/VIT-D 200 UNITS COMBO TABLET (FP) PO SCH (23:39)
[2020-04-16] MEDS: NYSTATIN 100000 UNIT/GM TOPICAL OINTMENT 15 GM TUBE TP SCH ×3 (06:40→22:04)
[2020-04-16] MEDS ORDERED: FUROSEMIDE 40 MG TABLET (FP) ONE (07:09)
[2020-04-16] MEDS ORDERED: METOCLOPRAMIDE HCL 10 MG TABLET (FP) PO ONE (07:10)
[2020-04-16] MEDS ORDERED: oxyCODONE HCL 5 MG TABLET ONE ×2 (07:10→11:35)
[2020-04-16] MEDS: oxyCODONE HCL 5 MG TABLET PO SCH ×5 (07:15→22:03)
[2020-04-16] MEDS: METOCLOPRAMIDE HCL 10 MG TABLET (FP) PO SCH ×3 (07:16→17:37)
[2020-04-16] MEDS: FUROSEMIDE 40 MG TABLET (FP) PO SCH ×2 (07:16→16:44)
[2020-04-16 08:13] LABS: BASO % 0.4 % (0-2.0); EOS % 5.2 % (0-4.5); HEMATOCRIT 36.6 % (35.4-49); HEMOGLOBIN 12.2 GM/dL (11.7-16.9); LYMPH % 26.3 % (8-40); MCHC 33.3 g/dl (32.0-35.9); MEAN CELL VOLUME 84.2 fl (80-96); MEAN PLT VOLUME 9.6 fl (7.5-11.1); MONO % 7.1 % (3.8-10.2); PLATELET COUNT 113 K/MM3 (134-434); RBC 4.34 M/mm3 (4.00-5.60); RDW 15.2 % (11.9-15.9)
[2020-04-16] MEDS ORDERED: INSULIN (NOVOLOG MIX 70/30) 100 UNITS/ML MDV SQ ONE (08:57)
[2020-04-16] MEDS: INSULIN SLIDING SCALE (NOVOLOG) 1 VIAL SQ SCH ×3 (09:01→16:48)
[2020-04-16] MEDS: INSULIN (NOVOLOG MIX 70/30) 100 UNITS/ML MDV SQ SCH ×2 (09:01→17:37)
[2020-04-16] MEDS ORDERED: amLODIPine BESYLATE 5 MG TABLET (FP) ONE (10:55)
[2020-04-16] MEDS ORDERED: PANTOPRAZOLE 40 MG TABLET ONE (10:55)
[2020-04-16] MEDS ORDERED: cloNIDine HCL 0.1 MG TABLET ONE (10:55)
[2020-04-16] MEDS ORDERED: SPIRONOLACTONE 25 MG TABLET ONE (10:55)
[2020-04-16] MEDS ORDERED: SERTRALINE HCL 50 MG TABLET (FP) ONE (10:55)
[2020-04-16] MEDS ORDERED: ENOXAPARIN NA (PORCINE) 40 MG/0.4 ML DISP.SYRIN SQ ONE (10:56)
[2020-04-16] MEDS: LACTOBACILLUS ACIDOPHILUS 1 TABLET PO SCH (11:11)
[2020-04-16] MEDS: SPIRONOLACTONE 25 MG TABLET PO SCH (11:11)
[2020-04-16] MEDS: ENOXAPARIN NA (PORCINE) 40 MG/0.4 ML DISP.SYRIN SQ SCH (11:11)
[2020-04-16] MEDS: cloNIDine HCL 0.1 MG TABLET PO SCH ×2 (11:11→22:04)
[2020-04-16] MEDS: CALCIUM 500MG/VIT-D 200 UNITS COMBO TABLET (FP) PO SCH ×2 (11:12→22:04)
[2020-04-16] MEDS: amLODIPine BESYLATE 5 MG TABLET (FP) PO SCH (11:12)
[2020-04-16] MEDS: POLYETHYLENE GLYCOL 3350 119 GM BTL PO SCH (11:12)
[2020-04-16] MEDS: PANTOPRAZOLE 40 MG TABLET PO SCH (11:13)
[2020-04-16] MEDS: SERTRALINE HCL 50 MG TABLET (FP) PO SCH (11:13)
[2020-04-16 15:22] VITALS: BMI 37.8
[2020-04-16] MEDS: ATORVASTATIN CA 20 MG TABLET (FP) PO SCH (22:04)
[2020-04-16] MEDS: ALPRAZolam 1 MG TABLET PO PRN (23:14)
[2020-04-17] MEDS: oxyCODONE HCL 5 MG TABLET PO SCH ×8 (04:37→21:15)
[2020-04-17] MEDS: FUROSEMIDE 40 MG TABLET (FP) PO SCH ×2 (06:11→13:29)
[2020-04-17] MEDS: METOCLOPRAMIDE HCL 10 MG TABLET (FP) PO SCH ×3 (06:11→18:27)
[2020-04-17] MEDS: INSULIN SLIDING SCALE (NOVOLOG) 1 VIAL SQ SCH ×3 (06:11→16:44)
[2020-04-17] MEDS: INSULIN (NOVOLOG MIX 70/30) 100 UNITS/ML MDV SQ SCH ×2 (06:12→16:45)
[2020-04-17] MEDS: ALPRAZolam 1 MG TABLET PO PRN ×2 (09:51→18:34)
[2020-04-17] MEDS: LACTOBACILLUS ACIDOPHILUS 1 TABLET PO SCH (09:53)
[2020-04-17] MEDS: CALCIUM 500MG/VIT-D 200 UNITS COMBO TABLET (FP) PO SCH ×2 (09:53→21:14)
[2020-04-17] MEDS: POLYETHYLENE GLYCOL 3350 119 GM BTL PO SCH (09:54)
[2020-04-17] MEDS: ENOXAPARIN NA (PORCINE) 40 MG/0.4 ML DISP.SYRIN SQ SCH (09:54)
[2020-04-17] MEDS: NYSTATIN 100000 UNIT/GM TOPICAL OINTMENT 15 GM TUBE TP SCH ×2 (09:54→22:43)
[2020-04-17] MEDS ORDERED: PNEUMOCOCCAL 23 VACCINE 0.5 ML VIAL IM ONE (10:00)
[2020-04-17] MEDS ORDERED: PNEUMOC 13-VAL CONJ-DIP CRM/PF 0.5 ML DISP.SYRIN IM ONE (10:00)
[2020-04-17] MEDS: cloNIDine HCL 0.1 MG TABLET PO SCH ×2 (10:00→21:18)
[2020-04-17] MEDS: AMMONIUM LACTATE 12% LOTION 225 GM BOTTLE TP SCH ×2 (10:09→21:22)
[2020-04-17] MEDS: PANTOPRAZOLE 40 MG TABLET PO SCH (12:13)
[2020-04-17] MEDS: SERTRALINE HCL 50 MG TABLET (FP) PO SCH (12:14)
[2020-04-17] MEDS: amLODIPine BESYLATE 5 MG TABLET (FP) PO SCH (12:20)
[2020-04-17] MEDS: SPIRONOLACTONE 25 MG TABLET PO SCH (12:20)
[2020-04-17 13:08] LABS: BASO % 0.3 % (0-2.0); EOS % 3.8 % (0-4.5); HEMATOCRIT 36.9 % (35.4-49); HEMOGLOBIN 12.3 GM/dL (11.7-16.9); LYMPH % 19.4 % (8-40); MCH 27.9 pg (25.7-33.7); MCHC 33.3 g/dl (32.0-35.9); MEAN PLT VOLUME 9.6 fl (7.5-11.1); MONO % 7.5 % (3.8-10.2); PLATELET COUNT 150 K/MM3 (134-434); RDW 15.2 % (11.9-15.9); WHITE BLOOD COUNT 8.4 K/mm3 (4.0-10.0)
[2020-04-17 13:25] LABS: POTASSIUM 3.3 mmol/L (3.5-5.1)
[2020-04-17 13:36] LABS: ALBUMIN 3.3 g/dl (3.4-5.0); CALCIUM 9.2 mg/dL (8.5-10.1)
[2020-04-17 13:41] LABS: BILIRUBIN,TOTAL 0.7 mg/dL (0.2-1); TOT PROT 6.7 g/dl (6.4-8.2)
[2020-04-17] MEDS: ATORVASTATIN CA 20 MG TABLET (FP) PO SCH (21:14)
[2020-04-18] MEDS: oxyCODONE HCL 5 MG TABLET PO SCH ×9 (01:25→23:56)
[2020-04-18] MEDS: ALPRAZolam 1 MG TABLET PO PRN ×2 (02:05→21:35)
[2020-04-18] MEDS ORDERED: POTASSIUM CHLORIDE TABS 20 MEQ TABLET.ER (FP) PO ONE (02:23)
[2020-04-18] MEDS: FUROSEMIDE 40 MG TABLET (FP) PO SCH ×2 (06:15→13:49)
[2020-04-18] MEDS: METOCLOPRAMIDE HCL 10 MG TABLET (FP) PO SCH ×3 (06:15→17:10)
[2020-04-18] MEDS: INSULIN (NOVOLOG MIX 70/30) 100 UNITS/ML MDV SQ SCH ×2 (06:17→17:10)
[2020-04-18] MEDS: INSULIN SLIDING SCALE (NOVOLOG) 1 VIAL SQ SCH ×3 (06:18→17:10)
[2020-04-18] MEDS: SPIRONOLACTONE 25 MG TABLET PO SCH (09:26)
[2020-04-18] MEDS: LACTOBACILLUS ACIDOPHILUS 1 TABLET PO SCH (09:26)
[2020-04-18] MEDS: cloNIDine HCL 0.1 MG TABLET PO SCH ×2 (09:26→21:29)
[2020-04-18] MEDS: AMMONIUM LACTATE 12% LOTION 225 GM BOTTLE TP SCH ×2 (09:27→22:57)
[2020-04-18] MEDS: POLYETHYLENE GLYCOL 3350 119 GM BTL PO SCH (09:27)
[2020-04-18] MEDS: ENOXAPARIN NA (PORCINE) 40 MG/0.4 ML DISP.SYRIN SQ SCH (09:27)
[2020-04-18] MEDS: NYSTATIN 100000 UNIT/GM TOPICAL OINTMENT 15 GM TUBE TP SCH ×2 (09:27→21:30)
[2020-04-18] MEDS: CALCIUM 500MG/VIT-D 200 UNITS COMBO TABLET (FP) PO SCH ×2 (09:28→21:30)
[2020-04-18] MEDS: SERTRALINE HCL 50 MG TABLET (FP) PO SCH (09:28)
[2020-04-18] MEDS: PANTOPRAZOLE 40 MG TABLET PO SCH (09:28)
[2020-04-18] MEDS: amLODIPine BESYLATE 5 MG TABLET (FP) PO SCH (09:28)
[2020-04-18] MEDS: ATORVASTATIN CA 20 MG TABLET (FP) PO SCH (21:29)
[2020-04-19] MEDS: oxyCODONE HCL 5 MG TABLET PO SCH ×7 (01:15→21:55)
[2020-04-19] MEDS: FUROSEMIDE 40 MG TABLET (FP) PO SCH ×2 (05:55→13:43)
[2020-04-19] MEDS: INSULIN SLIDING SCALE (NOVOLOG) 1 VIAL SQ SCH ×2 (06:29→12:53)
[2020-04-19] MEDS: METOCLOPRAMIDE HCL 10 MG TABLET (FP) PO SCH ×2 (06:31→11:04)
[2020-04-19] MEDS: INSULIN (NOVOLOG MIX 70/30) 100 UNITS/ML MDV SQ SCH (07:31)
[2020-04-19 09:22] LABS: BASO % 0.5 % (0-2.0); EOS % 3.5 % (0-4.5); HEMATOCRIT 42.3 % (35.4-49); HEMOGLOBIN 14.1 GM/dL (11.7-16.9); LYMPH % 26.6 % (8-40); MCH 27.9 pg (25.7-33.7); MCHC 33.4 g/dl (32.0-35.9); MEAN CELL VOLUME 83.5 fl (80-96); MEAN PLT VOLUME 9.3 fl (7.5-11.1); MONO % 5.1 % (3.8-10.2); NEUT % 64.3 % (42.8-82.8); PLATELET COUNT 187 K/MM3 (134-434); RBC 5.06 M/mm3 (4.00-5.60); RDW 15.2 % (11.9-15.9)
[2020-04-19 09:47] LABS: POTASSIUM 3.9 mmol/L (3.5-5.1)
[2020-04-19 10:00] LABS: BILIRUBIN,TOTAL 0.7 mg/dL (0.2-1); BLOOD UREA NITROGEN 23.4 mg/dL (7-18)
[2020-04-19 10:02] LABS: ALBUMIN 3.8 g/dl (3.4-5.0); TOT PROT 7.7 g/dl (6.4-8.2)
[2020-04-19 10:04] LABS: CALCIUM 9.3 mg/dL (8.5-10.1)
[2020-04-19 10:05] LABS: CREATININE 1.3 mg/dL (0.55-1.3)
[2020-04-19] MEDS: NYSTATIN 100000 UNIT/GM TOPICAL OINTMENT 15 GM TUBE TP SCH ×2 (11:01→22:10)
[2020-04-19] MEDS: AMMONIUM LACTATE 12% LOTION 225 GM BOTTLE TP SCH ×2 (11:01→22:09)
[2020-04-19] MEDS: ALPRAZolam 1 MG TABLET PO PRN ×2 (11:01→20:22)
[2020-04-19] MEDS: SPIRONOLACTONE 25 MG TABLET PO SCH (11:03)
[2020-04-19] MEDS: cloNIDine HCL 0.1 MG TABLET PO SCH ×2 (11:03→21:49)
[2020-04-19] MEDS: LACTOBACILLUS ACIDOPHILUS 1 TABLET PO SCH (11:03)
[2020-04-19] MEDS: POLYETHYLENE GLYCOL 3350 119 GM BTL PO SCH (11:04)
[2020-04-19] MEDS: CALCIUM 500MG/VIT-D 200 UNITS COMBO TABLET (FP) PO SCH ×2 (11:04→21:50)
[2020-04-19] MEDS: ENOXAPARIN NA (PORCINE) 40 MG/0.4 ML DISP.SYRIN SQ SCH (11:04)
[2020-04-19] MEDS: SERTRALINE HCL 50 MG TABLET (FP) PO SCH (11:04)
[2020-04-19] MEDS: amLODIPine BESYLATE 5 MG TABLET (FP) PO SCH (11:04)
[2020-04-19] MEDS: PANTOPRAZOLE 40 MG TABLET PO SCH (11:04)
[2020-04-19] MEDS ORDERED: LIDOCAINE HCL 2% 100 MG/5 ML DISP.SYRIN ONE (15:10)
[2020-04-19] MEDS ORDERED: EPHEDRINE SULFATE/0.9% NACL/PF 50 MG/10 ML SYRINGE NR ONE (15:10)
[2020-04-19] MEDS ORDERED: fentaNYL CITRATE 250 MCG/5 ML VIAL ONE (15:11)
[2020-04-19] MEDS ORDERED: ROCURONIUM BROMIDE 100 MG/10 ML VIAL ONE (15:11)
[2020-04-19] MEDS ORDERED: SUCCINYLCHOLINE CHLORIDE 200 MG/10 ML SYRINGE ONE (15:11)
[2020-04-19] MEDS ORDERED: PROPOFOL 20 ML ONE ×5 (15:11→17:00)
[2020-04-19] MEDS ORDERED: MIDAZOLAM HCL 2 MG/2 ML SINGLE DOSE VIAL ONE ×3 (15:11→16:18)
[2020-04-19] MEDS ORDERED: VANCOMYCIN 1 GM in NS (PRE-DOCKED) 1,000 MG/250 ML IVPB ONE (16:10)
[2020-04-19] MEDS ORDERED: VANCOMYCIN 1,000 MG VIAL (RESTRICTED TO ID ONLY) ONE (16:14)
[2020-04-19] MEDS ORDERED: ONDANSETRON 4 MG/2 ML VIAL IVPUSH PRN ×2 (17:25→18:48)
[2020-04-19] MEDS ORDERED: LACTATED RINGERS SOLUTION 1,000 ML IV SCH ×2 (17:30→18:48)
[2020-04-19] MEDS ORDERED: ACETAMINOPHEN 1000 MG/100 ML VIAL (NON FORMULARY) IVPB ONE ×2 (17:42→18:30)
[2020-04-19] MEDS ORDERED: HYDROmorphone HCl 2 MG/ML VIAL IVPUSH PRN (17:55)
[2020-04-19] MEDS ORDERED: HYDROmorphone HCl 2 MG/ML VIAL ONE ×2 (17:57→19:01)
[2020-04-19] MEDS ORDERED: HYDROmorphone HCl 2 MG/ML VIAL IVPUSH ONE ×3 (18:00→19:00)
[2020-04-19] MEDS ORDERED: ACETAMINOPHEN INJECTION 100 ML IVPB ONE (18:30)
[2020-04-19] MEDS ORDERED: DOCUSATE SODIUM 100 MG CAPSULE (FP) PO PRN (18:48)
[2020-04-19] MEDS ORDERED: SENNOSIDES 8.6MG TABLET (FP) PO PRN (18:48)
[2020-04-19] MEDS ORDERED: ARTIFICIAL TEARS (POLYVINYL ALCOHOL) OPTH DROPS OU PRN (18:48)
[2020-04-19] MEDS ORDERED: ACETAMINOPHEN 325 MG TABLET (FP) PO PRN (18:48)
[2020-04-19] MEDS ORDERED: SODIUM CHLORIDE NASAL SPRAY 44 ML BOTTLE NS PRN (18:48)
[2020-04-19] MEDS ORDERED: MAGNESIUM HYDROX 2400MG/30ML ORAL SUSPENSION 30 ML CUP PO PRN (18:48)
[2020-04-19] MEDS: ATORVASTATIN CA 20 MG TABLET (FP) PO SCH (21:50)
[2020-04-20] MEDS: oxyCODONE HCL 5 MG TABLET PO SCH ×11 (00:59→22:05)
[2020-04-20] MEDS: INSULIN SLIDING SCALE (NOVOLOG) 1 VIAL SQ SCH ×4 (06:10→17:23)
[2020-04-20] MEDS: INSULIN (NOVOLOG MIX 70/30) 100 UNITS/ML MDV SQ SCH ×3 (06:12→17:24)
[2020-04-20] MEDS: METOCLOPRAMIDE HCL 10 MG TABLET (FP) PO SCH ×4 (06:13→16:24)
[2020-04-20] MEDS: FUROSEMIDE 40 MG TABLET (FP) PO SCH ×2 (06:13→13:18)
[2020-04-20] MEDS: VANCOMYCIN 1 GRAM (PRE-DOCKED) 1,000 MG/250 ML BAG IVPB SCH ×2 (07:02→18:57)
[2020-04-20] MEDS: ALPRAZolam 1 MG TABLET PO PRN ×2 (09:45→23:16)
[2020-04-20] MEDS: amLODIPine BESYLATE 5 MG TABLET (FP) PO SCH (09:46)
[2020-04-20] MEDS: POLYETHYLENE GLYCOL 3350 119 GM BTL PO SCH (09:46)
[2020-04-20] MEDS: ENOXAPARIN NA (PORCINE) 40 MG/0.4 ML DISP.SYRIN SQ SCH (09:46)
[2020-04-20] MEDS: PANTOPRAZOLE 40 MG TABLET PO SCH (09:47)
[2020-04-20] MEDS: SERTRALINE HCL 50 MG TABLET (FP) PO SCH (09:48)
[2020-04-20] MEDS: cloNIDine HCL 0.1 MG TABLET PO SCH ×2 (09:48→22:04)
[2020-04-20] MEDS: NYSTATIN 100000 UNIT/GM TOPICAL OINTMENT 15 GM TUBE TP SCH ×2 (09:49→22:20)
[2020-04-20] MEDS: LACTOBACILLUS ACIDOPHILUS 1 TABLET PO SCH (09:49)
[2020-04-20] MEDS: CALCIUM 500MG/VIT-D 200 UNITS COMBO TABLET (FP) PO SCH ×2 (09:49→22:04)
[2020-04-20] MEDS: SPIRONOLACTONE 25 MG TABLET PO SCH (09:49)
[2020-04-20] MEDS: AMMONIUM LACTATE 12% LOTION 225 GM BOTTLE TP SCH ×2 (09:49→22:20)
[2020-04-20] MEDS: COLLAGENASE CLOSTRIDIUM HIST. 30 GRAMS TUBE TP SCH (16:38)
[2020-04-20] MEDS: ATORVASTATIN CA 20 MG TABLET (FP) PO SCH (22:05)
[2020-04-21] MEDS: oxyCODONE HCL 5 MG TABLET PO SCH ×8 (01:09→22:02)
[2020-04-21] MEDS: FUROSEMIDE 40 MG TABLET (FP) PO SCH ×2 (06:39→13:07)
[2020-04-21] MEDS: INSULIN (NOVOLOG MIX 70/30) 100 UNITS/ML MDV SQ SCH ×2 (06:39→17:04)
[2020-04-21] MEDS: METOCLOPRAMIDE HCL 10 MG TABLET (FP) PO SCH ×3 (06:40→16:08)
[2020-04-21] MEDS: INSULIN SLIDING SCALE (NOVOLOG) 1 VIAL SQ SCH ×3 (06:40→17:03)
[2020-04-21] MEDS ORDERED: VANCOMYCIN 1 GRAM (PRE-DOCKED) 1,000 MG/250 ML BAG IVPB SCH (07:00)
[2020-04-21] MEDS: amLODIPine BESYLATE 5 MG TABLET (FP) PO SCH (09:47)
[2020-04-21] MEDS: SERTRALINE HCL 50 MG TABLET (FP) PO SCH (09:47)
[2020-04-21] MEDS: PANTOPRAZOLE 40 MG TABLET PO SCH (09:47)
[2020-04-21] MEDS: ALPRAZolam 1 MG TABLET PO PRN ×2 (09:47→23:06)
[2020-04-21] MEDS: SPIRONOLACTONE 25 MG TABLET PO SCH (09:47)
[2020-04-21] MEDS: ENOXAPARIN NA (PORCINE) 40 MG/0.4 ML DISP.SYRIN SQ SCH (09:48)
[2020-04-21] MEDS: CALCIUM 500MG/VIT-D 200 UNITS COMBO TABLET (FP) PO SCH ×2 (09:48→22:01)
[2020-04-21] MEDS: LACTOBACILLUS ACIDOPHILUS 1 TABLET PO SCH (09:48)
[2020-04-21] MEDS: AMMONIUM LACTATE 12% LOTION 225 GM BOTTLE TP SCH ×2 (09:48→23:04)
[2020-04-21] MEDS: POLYETHYLENE GLYCOL 3350 119 GM BTL PO SCH (09:50)
[2020-04-21] MEDS: COLLAGENASE CLOSTRIDIUM HIST. 30 GRAMS TUBE TP SCH (09:51)
[2020-04-21] MEDS: cloNIDine HCL 0.1 MG TABLET PO SCH ×2 (09:51→23:04)
[2020-04-21] MEDS: NYSTATIN 100000 UNIT/GM TOPICAL OINTMENT 15 GM TUBE TP SCH ×2 (09:51→23:04)
[2020-04-21] MEDS: VANCOMYCIN 1 GRAM (PRE-DOCKED) 1,000 MG/250 ML BAG IVPB SCH (19:31)
[2020-04-21] MEDS: ATORVASTATIN CA 20 MG TABLET (FP) PO SCH (22:01)
[2020-04-22] MEDS: oxyCODONE HCL 5 MG TABLET PO SCH ×8 (00:55→21:46)
[2020-04-22] MEDS: FUROSEMIDE 40 MG TABLET (FP) PO SCH ×2 (06:23→13:22)
[2020-04-22] MEDS: VANCOMYCIN 1 GRAM (PRE-DOCKED) 1,000 MG/250 ML BAG IVPB SCH (06:34)
[2020-04-22] MEDS: INSULIN (NOVOLOG MIX 70/30) 100 UNITS/ML MDV SQ SCH ×2 (06:35→16:26)
[2020-04-22] MEDS: METOCLOPRAMIDE HCL 10 MG TABLET (FP) PO SCH ×3 (06:36→16:21)
[2020-04-22] MEDS: INSULIN SLIDING SCALE (NOVOLOG) 1 VIAL SQ SCH ×3 (06:36→16:25)
[2020-04-22] MEDS: cloNIDine HCL 0.1 MG TABLET PO SCH ×2 (09:57→21:48)
[2020-04-22] MEDS: amLODIPine BESYLATE 5 MG TABLET (FP) PO SCH (09:57)
[2020-04-22] MEDS: SERTRALINE HCL 50 MG TABLET (FP) PO SCH (10:00)
[2020-04-22] MEDS: LACTOBACILLUS ACIDOPHILUS 1 TABLET PO SCH (10:00)
[2020-04-22] MEDS: PANTOPRAZOLE 40 MG TABLET PO SCH (10:01)
[2020-04-22] MEDS: SPIRONOLACTONE 25 MG TABLET PO SCH (10:01)
[2020-04-22] MEDS: ENOXAPARIN NA (PORCINE) 40 MG/0.4 ML DISP.SYRIN SQ SCH (10:01)
[2020-04-22] MEDS: CALCIUM 500MG/VIT-D 200 UNITS COMBO TABLET (FP) PO SCH ×2 (10:01→21:48)
[2020-04-22] MEDS: AMMONIUM LACTATE 12% LOTION 225 GM BOTTLE TP SCH ×2 (10:04→21:46)
[2020-04-22] MEDS: POLYETHYLENE GLYCOL 3350 119 GM BTL PO SCH (10:04)
[2020-04-22] MEDS: COLLAGENASE CLOSTRIDIUM HIST. 30 GRAMS TUBE TP SCH (10:04)
[2020-04-22] MEDS: NYSTATIN 100000 UNIT/GM TOPICAL OINTMENT 15 GM TUBE TP SCH ×2 (10:04→21:46)
[2020-04-22] MEDS: ALPRAZolam 1 MG TABLET PO PRN (20:49)
[2020-04-22] MEDS: ATORVASTATIN CA 20 MG TABLET (FP) PO SCH (21:48)
[2020-04-23] MEDS: oxyCODONE HCL 5 MG TABLET PO SCH ×8 (01:29→22:19)
[2020-04-23] MEDS: METOCLOPRAMIDE HCL 10 MG TABLET (FP) PO SCH ×3 (06:58→17:46)
[2020-04-23] MEDS: FUROSEMIDE 40 MG TABLET (FP) PO SCH ×2 (06:58→13:08)
[2020-04-23] MEDS: INSULIN (NOVOLOG MIX 70/30) 100 UNITS/ML MDV SQ SCH ×2 (07:25→17:47)
[2020-04-23] MEDS: INSULIN SLIDING SCALE (NOVOLOG) 1 VIAL SQ SCH ×3 (07:26→17:47)
[2020-04-23] MEDS: CALCIUM 500MG/VIT-D 200 UNITS COMBO TABLET (FP) PO SCH ×2 (10:00→21:50)
[2020-04-23] MEDS: LACTOBACILLUS ACIDOPHILUS 1 TABLET PO SCH (10:00)
[2020-04-23] MEDS: cloNIDine HCL 0.1 MG TABLET PO SCH ×2 (10:00→21:56)
[2020-04-23] MEDS: ENOXAPARIN NA (PORCINE) 40 MG/0.4 ML DISP.SYRIN SQ SCH (10:00)
[2020-04-23] MEDS: PANTOPRAZOLE 40 MG TABLET PO SCH (10:00)
[2020-04-23] MEDS: SPIRONOLACTONE 25 MG TABLET PO SCH (10:01)
[2020-04-23] MEDS: SERTRALINE HCL 50 MG TABLET (FP) PO SCH (10:01)
[2020-04-23] MEDS: amLODIPine BESYLATE 5 MG TABLET (FP) PO SCH (10:02)
[2020-04-23] MEDS: POLYETHYLENE GLYCOL 3350 119 GM BTL PO SCH (10:03)
[2020-04-23] MEDS: NYSTATIN 100000 UNIT/GM TOPICAL OINTMENT 15 GM TUBE TP SCH ×2 (10:05→21:57)
[2020-04-23] MEDS: AMMONIUM LACTATE 12% LOTION 225 GM BOTTLE TP SCH ×2 (10:05→21:56)
[2020-04-23] MEDS: ALPRAZolam 1 MG TABLET PO PRN ×2 (12:37→21:50)
[2020-04-23] MEDS: COLLAGENASE CLOSTRIDIUM HIST. 30 GRAMS TUBE TP SCH ×2 (13:08→13:13)
[2020-04-23 17:08] LABS: CK-MM 93 % (97-100)
[2020-04-23] MEDS: ATORVASTATIN CA 20 MG TABLET (FP) PO SCH (21:50)
[2020-04-24] MEDS: oxyCODONE HCL 5 MG TABLET PO SCH ×8 (01:19→22:18)
[2020-04-24] MEDS: FUROSEMIDE 40 MG TABLET (FP) PO SCH ×2 (05:59→14:48)
[2020-04-24] MEDS: INSULIN SLIDING SCALE (NOVOLOG) 1 VIAL SQ SCH ×3 (06:00→17:45)
[2020-04-24] MEDS: INSULIN (NOVOLOG MIX 70/30) 100 UNITS/ML MDV SQ SCH ×2 (06:00→17:47)
[2020-04-24] MEDS: METOCLOPRAMIDE HCL 10 MG TABLET (FP) PO SCH ×3 (06:01→17:38)
[2020-04-24] MEDS ORDERED: INSULIN (NOVOLOG) ASPART 100 UNITS/ML 10ML VIAL ONE ×2 (06:22→18:51)
[2020-04-24] MEDS ORDERED: PT OWN MED DRAWER 7, Y5N ONE (10:12)
[2020-04-24] MEDS: SPIRONOLACTONE 25 MG TABLET PO SCH (10:16)
[2020-04-24] MEDS: amLODIPine BESYLATE 5 MG TABLET (FP) PO SCH (10:16)
[2020-04-24] MEDS: CALCIUM 500MG/VIT-D 200 UNITS COMBO TABLET (FP) PO SCH ×2 (10:16→21:07)
[2020-04-24] MEDS: ENOXAPARIN NA (PORCINE) 40 MG/0.4 ML DISP.SYRIN SQ SCH (10:17)
[2020-04-24] MEDS: PANTOPRAZOLE 40 MG TABLET PO SCH (10:17)
[2020-04-24] MEDS: SERTRALINE HCL 50 MG TABLET (FP) PO SCH (10:17)
[2020-04-24] MEDS: cloNIDine HCL 0.1 MG TABLET PO SCH ×2 (10:17→21:07)
[2020-04-24] MEDS: LACTOBACILLUS ACIDOPHILUS 1 TABLET PO SCH (10:19)
[2020-04-24] MEDS: AMMONIUM LACTATE 12% LOTION 225 GM BOTTLE TP SCH ×2 (10:20→21:08)
[2020-04-24] MEDS: COLLAGENASE CLOSTRIDIUM HIST. 30 GRAMS TUBE TP SCH (10:21)
[2020-04-24] MEDS: NYSTATIN 100000 UNIT/GM TOPICAL OINTMENT 15 GM TUBE TP SCH ×2 (10:21→21:08)
[2020-04-24] MEDS: POLYETHYLENE GLYCOL 3350 119 GM BTL PO SCH (10:24)
[2020-04-24] MEDS: ALPRAZolam 1 MG TABLET PO PRN ×2 (10:40→23:26)
[2020-04-24] MEDS ORDERED: INSULIN (NOVOLOG MIX 70/30) 100 UNITS/ML MDV SQ ONE (18:51)
[2020-04-24] MEDS: ATORVASTATIN CA 20 MG TABLET (FP) PO SCH (21:07)
[2020-04-25] MEDS: oxyCODONE HCL 5 MG TABLET PO SCH ×5 (01:20→13:23)
[2020-04-25] MEDS: INSULIN SLIDING SCALE (NOVOLOG) 1 VIAL SQ SCH ×2 (06:41→12:34)
[2020-04-25] MEDS: INSULIN (NOVOLOG MIX 70/30) 100 UNITS/ML MDV SQ SCH (06:43)
[2020-04-25] MEDS: METOCLOPRAMIDE HCL 10 MG TABLET (FP) PO SCH ×2 (06:43→12:33)
[2020-04-25] MEDS: FUROSEMIDE 40 MG TABLET (FP) PO SCH ×2 (06:43→13:25)
[2020-04-25 06:50] VITALS: BP 142/72; PULSE 59; TEMP 98.2
[2020-04-25] MEDS: SERTRALINE HCL 50 MG TABLET (FP) PO SCH (09:38)
[2020-04-25] MEDS: ALPRAZolam 1 MG TABLET PO PRN (09:38)
[2020-04-25] MEDS: SPIRONOLACTONE 25 MG TABLET PO SCH (09:39)
[2020-04-25] MEDS: PANTOPRAZOLE 40 MG TABLET PO SCH (09:39)
[2020-04-25] MEDS: cloNIDine HCL 0.1 MG TABLET PO SCH (09:39)
[2020-04-25] MEDS: CALCIUM 500MG/VIT-D 200 UNITS COMBO TABLET (FP) PO SCH (09:39)
[2020-04-25] MEDS: amLODIPine BESYLATE 5 MG TABLET (FP) PO SCH (09:39)
[2020-04-25] MEDS: ENOXAPARIN NA (PORCINE) 40 MG/0.4 ML DISP.SYRIN SQ SCH (09:40)
[2020-04-25] MEDS: LACTOBACILLUS ACIDOPHILUS 1 TABLET PO SCH (09:40)
[2020-04-25] MEDS: NYSTATIN 100000 UNIT/GM TOPICAL OINTMENT 15 GM TUBE TP SCH (09:42)
[2020-04-25] MEDS: POLYETHYLENE GLYCOL 3350 119 GM BTL PO SCH (09:42)
[2020-04-25] MEDS: COLLAGENASE CLOSTRIDIUM HIST. 30 GRAMS TUBE TP SCH (09:42)
[2020-04-25] MEDS: AMMONIUM LACTATE 12% LOTION 225 GM BOTTLE TP SCH (09:44)
== END 2020-04-25 15:09 | disposition home or self-care (01) | DRG 950 ==
LOC: JER 12:06 → JERBED 16:32 → J5WEST-2 04-16 12:16 → J8W 04-23 19:18
PROVIDERS: ADMIT Internal Medicine; ATTEND Internal Medicine
PROC: 0Y6H0Z1 Detachment at Right Lower Leg, High, Open Approach (ICD-10-PCS; principal; 2020-04-19 15:30)
DX: T40.2X1A Poisoning by other opioids, accidental (unintentional), initial encounter (principal); T87.43 Infection of amputation stump, right lower extremity; Y83.8 Other surgical procedures as the cause of abnormal reaction of the patient, or of later complication, without mention of misadventure at the time of the procedure; M54.5 Low back pain; E78.5 Hyperlipidemia, unspecified; I25.10 Atherosclerotic heart disease of native coronary artery without angina pectoris; I25.2 Old myocardial infarction; K59.09 Other constipation; F41.8 Other specified anxiety disorders; F43.10 Post-traumatic stress disorder, unspecified; E11.42 Type 2 diabetes mellitus with diabetic polyneuropathy; G89.29 Other chronic pain; D72.829 Elevated white blood cell count, unspecified; I11.0 Hypertensive heart disease with heart failure; I50.9 Heart failure, unspecified; E11.622 Type 2 diabetes mellitus with other skin ulcer; L97.818 Non-pressure chronic ulcer of other part of right lower leg with other specified severity; D69.6 Thrombocytopenia, unspecified; E11.69 Type 2 diabetes mellitus with other specified complication; M86.9 Osteomyelitis, unspecified; E11.621 Type 2 diabetes mellitus with foot ulcer; L03.116 Cellulitis of left lower limb; E87.6 Hypokalemia; L97.408 Non-pressure chronic ulcer of unspecified heel and midfoot with other specified severity; R50.9 Fever, unspecified; Z89.511 Acquired absence of right leg below knee; E66.9 Obesity, unspecified; Z68.37 Body mass index [BMI] 37.0-37.9, adult; Y92.098 Other place in other non-institutional residence as the place of occurrence of the external cause; Z89.422 Acquired absence of other left toe(s)
CPT/HCPCS: 36415; 70450-TC; 71045-TC-FY; 71101-TC-RT-FY; 72125-TC; 73610-TC-LT-FY; 73630-TC-LT; 80053; 80307; 82550; 82552; 82553; 82962; 84484; 85025; 85651; 86140; 87040; 88305-TC; 88311-TC; 90732; 93005; 93010; 94760; 97161-GP; 99285-25; C9803; G0009; J0131; J0735; U0003

== ENCOUNTER 2020-10-24 13:30 | Inpatient (IN) | payer OTHER ==
[2020-10-24] MEDS ORDERED: oxyCODONE HCL 5 MG TABLET PO ONE (15:01)
[2020-10-24] MEDS ORDERED: VANCOMYCIN 1 GM in D5W (PRE-DOCKED) 1,000 MG/250 ML IVPB ONE (15:07)
[2020-10-24] MEDS ORDERED: ALPRAZolam 1 MG TABLET PO PRN (15:09)
[2020-10-24] MEDS ORDERED: oxyCODONE HCL 5 MG TABLET ONE ×2 (15:55→19:26)
[2020-10-24] MEDS ORDERED: VANCOMYCIN 1 GRAM (PRE-DOCKED) 1,000 MG/250 ML BAG IVPB ONE (15:55)
[2020-10-24 16:42] LABS: BASO % 0.6 % (0-2.0); EOS % 2.4 % (0-4.5); HEMATOCRIT 37.3 % (35.4-49); HEMOGLOBIN 12.5 GM/dL (11.7-16.9); LYMPH % 24.1 % (8-40); MCH 27.7 pg (25.7-33.7); MCHC 33.4 g/dl (32.0-35.9); MEAN CELL VOLUME 82.7 fl (80-96); MEAN PLT VOLUME 8.5 fl (7.5-11.1); MONO % 7.1 % (3.8-10.2); NEUT % 65.8 % (42.8-82.8); PLATELET COUNT 159 10^3/uL (134-434); RBC 4.51 M/mm3 (4.00-5.60); WHITE BLOOD COUNT 8.1 K/mm3 (4.0-10.0)
[2020-10-24 16:49] LABS: INR 1.04 (0.83-1.09); PROTHROMBIN TIME (PATIENT) 12.8 SEC (9.7-13.0)
[2020-10-24 16:52] LABS: ACTIVATED PTT 33.2 SECONDS (25.2-36.5)
[2020-10-24 17:03] LABS: ALBUMIN 3.8 g/dl (3.4-5.0); BLOOD UREA NITROGEN 35.3 mg/dL (7-18)
[2020-10-24 17:07] LABS: CREATININE 1.2 mg/dL (0.55-1.3)
[2020-10-24 17:08] LABS: BILIRUBIN,TOTAL 0.6 mg/dL (0.2-1); TOT PROT 8.1 g/dl (6.4-8.2)
[2020-10-24] MEDS ORDERED: ACETAMINOPHEN 325 MG TABLET (FP) PO PRN (18:22)
[2020-10-24] MEDS ORDERED: SODIUM CHLORIDE NASAL SPRAY 44 ML BOTTLE NS PRN (18:28)
[2020-10-24] MEDS ORDERED: SENNOSIDES 8.6MG TABLET (FP) PO PRN (18:29)
[2020-10-24] MEDS ORDERED: ARTIFICIAL TEARS (POLYVINYL ALCOHOL) OPTH DROPS OU PRN ×2 (18:30→18:32)
[2020-10-24] MEDS ORDERED: MAGNESIUM HYDROX 2400MG/30ML ORAL SUSPENSION 30 ML CUP PO PRN (18:34)
[2020-10-24] MEDS ORDERED: AMMONIUM LACTATE 12% LOTION 225 GM BOTTLE TP PRN (18:47)
[2020-10-24] MEDS ORDERED: PANTOPRAZOLE 40 MG TABLET ONE (19:26)
[2020-10-24] MEDS ORDERED: BACITRACIN 0.9 GM PACKET ONE (19:27)
[2020-10-24] MEDS ORDERED: ENOXAPARIN NA (PORCINE) 40 MG/0.4 ML DISP.SYRIN SQ ONE (19:28)
[2020-10-24] MEDS: INSULIN SLIDING SCALE (NOVOLOG) 1 VIAL SQ SCH (20:38)
[2020-10-24] MEDS: oxyCODONE HCL 5 MG TABLET PO SCH ×2 (20:38→23:28)
[2020-10-24] MEDS: BACITRACIN 15 GM TUBE TOPICAL OINTMENT TP SCH (20:38)
[2020-10-24] MEDS: METOCLOPRAMIDE HCL 10 MG TABLET (FP) PO SCH (20:39)
[2020-10-24] MEDS: PANTOPRAZOLE 40 MG TABLET PO SCH (20:39)
[2020-10-24] MEDS: ENOXAPARIN NA (PORCINE) 40 MG/0.4 ML DISP.SYRIN SQ SCH (20:39)
[2020-10-24] MEDS: SODIUM CHLORIDE 0.45% 1,000 ML IV SCH (21:03)
[2020-10-24] MEDS: DOCUSATE SODIUM 100 MG CAPSULE (FP) PO SCH (23:24)
[2020-10-24] MEDS: NYSTATIN 100000 UNIT/GM TOPICAL OINTMENT 15 GM TUBE TP SCH (23:26)
[2020-10-24] MEDS: CALCIUM 500MG/VIT-D 200 UNITS COMBO TABLET (FP) PO SCH (23:26)
[2020-10-24] MEDS: ATORVASTATIN CA 20 MG TABLET (FP) PO SCH (23:26)
[2020-10-24] MEDS: ALPRAZolam 1 MG TABLET PO PRN (23:27)
[2020-10-25] MEDS: cloNIDine HCL 0.1 MG TABLET PO SCH ×3 (01:29→21:29)
[2020-10-25] MEDS: oxyCODONE HCL 5 MG TABLET PO SCH ×8 (02:31→21:31)
[2020-10-25] MEDS: FUROSEMIDE 40 MG TABLET (FP) PO SCH ×2 (06:20→13:28)
[2020-10-25] MEDS: INSULIN SLIDING SCALE (NOVOLOG) 1 VIAL SQ SCH ×4 (06:21→21:37)
[2020-10-25] MEDS: METOCLOPRAMIDE HCL 10 MG TABLET (FP) PO SCH ×3 (06:21→17:13)
[2020-10-25] MEDS ORDERED: INSULIN (NOVOLOG MIX 70/30) 100 UNITS/ML MDV SQ SCH (07:00)
[2020-10-25] MEDS ORDERED: INSULIN SLIDING SCALE (NOVOLOG) 1 VIAL SQ SCH (09:20)
[2020-10-25 09:57] LABS: BASO % 1.1 % (0-2.0); EOS % 3.2 % (0-4.5); HEMATOCRIT 37.8 % (35.4-49); HEMOGLOBIN 12.6 GM/dL (11.7-16.9); MCH 27.6 pg (25.7-33.7); MCHC 33.3 g/dl (32.0-35.9); MEAN CELL VOLUME 82.7 fl (80-96); MONO % 7.4 % (3.8-10.2); NEUT % 58.3 % (42.8-82.8); RBC 4.57 M/mm3 (4.00-5.60); RDW 16.2 % (11.9-15.9); WHITE BLOOD COUNT 7.7 K/mm3 (4.0-10.0)
[2020-10-25] MEDS ORDERED: CALCIUM 500MG/VIT-D 200 UNITS COMBO TABLET (FP) PO SCH (10:00)
[2020-10-25 10:13] LABS: ALBUMIN 3.6 g/dl (3.4-5.0); BLOOD UREA NITROGEN 27.5 mg/dL (7-18)
[2020-10-25 10:14] LABS: CALCIUM 8.6 mg/dL (8.5-10.1)
[2020-10-25 10:15] LABS: BILIRUBIN,TOTAL 0.5 mg/dL (0.2-1); TOT PROT 7.7 g/dl (6.4-8.2)
[2020-10-25 10:17] LABS: CREATININE 1.2 mg/dL (0.55-1.3)
[2020-10-25] MEDS: CALCIUM 500MG/VIT-D 200 UNITS COMBO TABLET (FP) PO SCH ×2 (10:53→21:30)
[2020-10-25] MEDS: amLODIPine BESYLATE 5 MG TABLET (FP) PO SCH (10:54)
[2020-10-25] MEDS: SPIRONOLACTONE 25 MG TABLET PO SCH (10:55)
[2020-10-25] MEDS: LACTOBACILLUS ACIDOPHILUS 1 TABLET PO SCH (10:55)
[2020-10-25] MEDS: PANTOPRAZOLE 40 MG TABLET PO SCH (10:56)
[2020-10-25] MEDS: ASPIRIN COATED 81 MG TABLET.EC PO SCH (10:56)
[2020-10-25] MEDS: SERTRALINE HCL 50 MG TABLET (FP) PO SCH (10:56)
[2020-10-25] MEDS: DOCUSATE SODIUM 100 MG CAPSULE (FP) PO SCH ×2 (10:58→21:30)
[2020-10-25] MEDS: ENOXAPARIN NA (PORCINE) 40 MG/0.4 ML DISP.SYRIN SQ SCH (10:59)
[2020-10-25] MEDS: POLYETHYLENE GLYCOL (HEALTHYLAX) 3350 17 GM PACKET PO SCH (10:59)
[2020-10-25] MEDS ORDERED: INSULIN (NOVOLOG) ASPART 100 UNITS/ML 10ML VIAL ONE (12:03)
[2020-10-25] MEDS ORDERED: CEFEPIME HCL 1 GM VIAL (RESTRICTED TO ID) ONE ×2 (12:04→17:56)
[2020-10-25] MEDS ORDERED: DEXTROSE 5%-WATER 100 ML IVPB ONE ×2 (12:04→17:56)
[2020-10-25] MEDS: SODIUM CHLORIDE 0.45% 1,000 ML IV SCH (12:08)
[2020-10-25] MEDS: CEFEPIME 1 GM in DEXTROSE 5%-WATER 100 ML IVPB SCH ×2 (12:31→18:10)
[2020-10-25] MEDS: BACITRACIN 15 GM TUBE TOPICAL OINTMENT TP SCH (13:17)
[2020-10-25] MEDS: VANCOMYCIN 1 GRAM (PRE-DOCKED) 1,000 MG/250 ML BAG IVPB SCH (13:22)
[2020-10-25] MEDS: ALPRAZolam 1 MG TABLET PO PRN (17:52)
[2020-10-25] MEDS: NYSTATIN 100000 UNIT/GM TOPICAL OINTMENT 15 GM TUBE TP SCH ×2 (17:58→21:37)
[2020-10-25] MEDS: COLLAGENASE CLOSTRIDIUM HIST. 30 GRAMS TUBE TP SCH (18:11)
[2020-10-25] MEDS: INSULIN (NOVOLOG MIX 70/30) 100 UNITS/ML MDV SQ SCH (18:11)
[2020-10-25] MEDS: ATORVASTATIN CA 20 MG TABLET (FP) PO SCH (21:30)
[2020-10-26] MEDS: VANCOMYCIN 1 GRAM (PRE-DOCKED) 1,000 MG/250 ML BAG IVPB SCH ×2 (00:32→12:27)
[2020-10-26] MEDS: oxyCODONE HCL 5 MG TABLET PO SCH ×8 (01:00→21:36)
[2020-10-26] MEDS ORDERED: CEFEPIME HCL 1 GM VIAL (RESTRICTED TO ID) ONE ×4 (01:09→17:22)
[2020-10-26] MEDS ORDERED: DEXTROSE 5%-WATER 100 ML IVPB ONE ×3 (01:12→17:22)
[2020-10-26] MEDS: CEFEPIME 1 GM in DEXTROSE 5%-WATER 100 ML IVPB SCH ×3 (01:32→17:29)
[2020-10-26] MEDS: FUROSEMIDE 40 MG TABLET (FP) PO SCH ×2 (05:52→14:38)
[2020-10-26] MEDS: INSULIN SLIDING SCALE (NOVOLOG) 1 VIAL SQ SCH ×4 (06:04→21:38)
[2020-10-26] MEDS: INSULIN (NOVOLOG MIX 70/30) 100 UNITS/ML MDV SQ SCH ×3 (06:04→17:29)
[2020-10-26] MEDS: METOCLOPRAMIDE HCL 10 MG TABLET (FP) PO SCH ×3 (06:05→17:30)
[2020-10-26] MEDS ORDERED: INSULIN (NOVOLOG) ASPART 100 UNITS/ML 10ML VIAL ONE (06:30)
[2020-10-26] MEDS: SODIUM CHLORIDE 0.45% 1,000 ML IV SCH (08:20)
[2020-10-26 09:06] LABS: BASO % 0.6 % (0-2.0); HEMATOCRIT 38.2 % (35.4-49); HEMOGLOBIN 12.9 GM/dL (11.7-16.9); MCH 27.8 pg (25.7-33.7); MCHC 33.8 g/dl (32.0-35.9); MEAN CELL VOLUME 82.2 fl (80-96); MEAN PLT VOLUME 8.5 fl (7.5-11.1); MONO % 6.4 % (3.8-10.2); PLATELET COUNT 156 10^3/uL (134-434); RBC 4.65 M/mm3 (4.00-5.60); RDW 15.7 % (11.9-15.9); WHITE BLOOD COUNT 9.9 K/mm3 (4.0-10.0)
[2020-10-26] MEDS: COLLAGENASE CLOSTRIDIUM HIST. 30 GRAMS TUBE TP SCH (09:07)
[2020-10-26 09:30] LABS: CALCIUM 8.8 mg/dL (8.5-10.1)
[2020-10-26 09:31] LABS: BLOOD UREA NITROGEN 22.8 mg/dL (7-18)
[2020-10-26 09:34] LABS: CREATININE 1.4 mg/dL (0.55-1.3)
[2020-10-26] MEDS: PANTOPRAZOLE 40 MG TABLET PO SCH (09:49)
[2020-10-26] MEDS: cloNIDine HCL 0.1 MG TABLET PO SCH ×2 (09:49→21:35)
[2020-10-26] MEDS: LACTOBACILLUS ACIDOPHILUS 1 TABLET PO SCH (09:49)
[2020-10-26] MEDS: amLODIPine BESYLATE 5 MG TABLET (FP) PO SCH (09:49)
[2020-10-26] MEDS: CALCIUM 500MG/VIT-D 200 UNITS COMBO TABLET (FP) PO SCH ×2 (09:50→21:36)
[2020-10-26] MEDS: SPIRONOLACTONE 25 MG TABLET PO SCH (09:50)
[2020-10-26] MEDS: ASPIRIN COATED 81 MG TABLET.EC PO SCH (09:50)
[2020-10-26] MEDS: DOCUSATE SODIUM 100 MG CAPSULE (FP) PO SCH ×2 (09:50→21:36)
[2020-10-26] MEDS: SERTRALINE HCL 50 MG TABLET (FP) PO SCH (09:50)
[2020-10-26] MEDS: POLYETHYLENE GLYCOL (HEALTHYLAX) 3350 17 GM PACKET PO SCH (09:51)
[2020-10-26] MEDS: ENOXAPARIN NA (PORCINE) 40 MG/0.4 ML DISP.SYRIN SQ SCH (09:51)
[2020-10-26] MEDS: ALPRAZolam 1 MG TABLET PO PRN ×2 (10:50→17:42)
[2020-10-26] MEDS: NYSTATIN 100000 UNIT/GM TOPICAL OINTMENT 15 GM TUBE TP SCH ×2 (12:27→21:38)
[2020-10-26] MEDS ORDERED: INSULIN (NOVOLOG MIX 70/30) 100 UNITS/ML MDV SQ ONE (17:41)
[2020-10-26] MEDS: ATORVASTATIN CA 20 MG TABLET (FP) PO SCH (21:36)
[2020-10-27] MEDS: oxyCODONE HCL 5 MG TABLET PO SCH ×7 (00:39→20:56)
[2020-10-27] MEDS: ALPRAZolam 1 MG TABLET PO PRN ×3 (00:39→16:36)
[2020-10-27] MEDS: VANCOMYCIN 1 GRAM (PRE-DOCKED) 1,000 MG/250 ML BAG IVPB SCH ×2 (00:41→13:16)
[2020-10-27] MEDS ORDERED: CEFEPIME HCL 1 GM VIAL (RESTRICTED TO ID) ONE ×3 (03:38→18:10)
[2020-10-27] MEDS ORDERED: DEXTROSE 5%-WATER 100 ML IVPB ONE ×3 (03:39→18:10)
[2020-10-27] MEDS: CEFEPIME 1 GM in DEXTROSE 5%-WATER 100 ML IVPB SCH ×3 (03:43→17:12)
[2020-10-27] MEDS: FUROSEMIDE 40 MG TABLET (FP) PO SCH ×2 (06:03→15:46)
[2020-10-27] MEDS: INSULIN (NOVOLOG MIX 70/30) 100 UNITS/ML MDV SQ SCH ×2 (06:03→17:11)
[2020-10-27] MEDS: METOCLOPRAMIDE HCL 10 MG TABLET (FP) PO SCH ×3 (06:03→15:45)
[2020-10-27] MEDS: INSULIN SLIDING SCALE (NOVOLOG) 1 VIAL SQ SCH ×4 (06:14→21:00)
[2020-10-27 07:33] LABS: HEMOGLOBIN 12.5 GM/dL (11.7-16.9); MCH 28.1 pg (25.7-33.7); MCHC 33.8 g/dl (32.0-35.9); MEAN CELL VOLUME 83.1 fl (80-96); PLATELET COUNT 152 10^3/uL (134-434); RBC 4.46 M/mm3 (4.00-5.60); RDW 15.8 % (11.9-15.9); WHITE BLOOD COUNT 7.5 K/mm3 (4.0-10.0)
[2020-10-27 07:44] LABS: CALCIUM 8.6 mg/dL (8.5-10.1)
[2020-10-27 07:48] LABS: CREATININE 1.4 mg/dL (0.55-1.3)
[2020-10-27] MEDS: ENOXAPARIN NA (PORCINE) 40 MG/0.4 ML DISP.SYRIN SQ SCH (10:03)
[2020-10-27] MEDS: SERTRALINE HCL 50 MG TABLET (FP) PO SCH (10:06)
[2020-10-27] MEDS: LACTOBACILLUS ACIDOPHILUS 1 TABLET PO SCH (10:06)
[2020-10-27] MEDS: POLYETHYLENE GLYCOL (HEALTHYLAX) 3350 17 GM PACKET PO SCH (10:06)
[2020-10-27] MEDS: SPIRONOLACTONE 25 MG TABLET PO SCH (10:06)
[2020-10-27] MEDS: amLODIPine BESYLATE 5 MG TABLET (FP) PO SCH (10:06)
[2020-10-27] MEDS: ASPIRIN COATED 81 MG TABLET.EC PO SCH (10:06)
[2020-10-27] MEDS: CALCIUM 500MG/VIT-D 200 UNITS COMBO TABLET (FP) PO SCH ×2 (10:06→21:01)
[2020-10-27] MEDS: cloNIDine HCL 0.1 MG TABLET PO SCH ×2 (10:07→21:00)
[2020-10-27] MEDS: DOCUSATE SODIUM 100 MG CAPSULE (FP) PO SCH ×2 (10:08→21:01)
[2020-10-27] MEDS: PANTOPRAZOLE 40 MG TABLET PO SCH (10:08)
[2020-10-27] MEDS: NYSTATIN 100000 UNIT/GM TOPICAL OINTMENT 15 GM TUBE TP SCH ×2 (10:09→21:01)
[2020-10-27] MEDS: COLLAGENASE CLOSTRIDIUM HIST. 30 GRAMS TUBE TP SCH (15:46)
[2020-10-27] MEDS: ATORVASTATIN CA 20 MG TABLET (FP) PO SCH (21:01)
[2020-10-28] MEDS ORDERED: DEXTROSE 5%-WATER 100 ML IVPB ONE ×2 (01:25→09:06)
[2020-10-28] MEDS ORDERED: CEFEPIME HCL 1 GM VIAL (RESTRICTED TO ID) ONE ×2 (01:25→09:06)
[2020-10-28] MEDS: oxyCODONE HCL 5 MG TABLET PO SCH ×10 (01:28→23:47)
[2020-10-28] MEDS: ALPRAZolam 1 MG TABLET PO PRN ×4 (01:31→23:47)
[2020-10-28] MEDS: CEFEPIME 1 GM in DEXTROSE 5%-WATER 100 ML IVPB SCH ×2 (01:32→09:41)
[2020-10-28] MEDS: METOCLOPRAMIDE HCL 10 MG TABLET (FP) PO SCH ×3 (06:32→17:33)
[2020-10-28] MEDS: FUROSEMIDE 40 MG TABLET (FP) PO SCH ×2 (06:33→13:30)
[2020-10-28] MEDS: INSULIN (NOVOLOG MIX 70/30) 100 UNITS/ML MDV SQ SCH ×2 (06:34→17:33)
[2020-10-28] MEDS: INSULIN SLIDING SCALE (NOVOLOG) 1 VIAL SQ SCH ×4 (06:35→21:22)
[2020-10-28 08:30] LABS: BASO % 0.5 % (0-2.0); EOS % 3.6 % (0-4.5); HEMATOCRIT 40.6 % (35.4-49); HEMOGLOBIN 13.6 GM/dL (11.7-16.9); LYMPH % 25.2 % (8-40); MCH 27.9 pg (25.7-33.7); MCHC 33.4 g/dl (32.0-35.9); MEAN CELL VOLUME 83.5 fl (80-96); MEAN PLT VOLUME 8.8 fl (7.5-11.1); MONO % 7.8 % (3.8-10.2); NEUT % 62.9 % (42.8-82.8); PLATELET COUNT 174 10^3/uL (134-434); RBC 4.86 M/mm3 (4.00-5.60); RDW 15.7 % (11.9-15.9); WHITE BLOOD COUNT 8.2 K/mm3 (4.0-10.0)
[2020-10-28 08:56] LABS: CALCIUM 9.1 mg/dL (8.5-10.1)
[2020-10-28 09:00] LABS: CREATININE 1.4 mg/dL (0.55-1.3)
[2020-10-28] MEDS: LACTOBACILLUS ACIDOPHILUS 1 TABLET PO SCH (09:41)
[2020-10-28] MEDS: SPIRONOLACTONE 25 MG TABLET PO SCH (09:41)
[2020-10-28] MEDS: ASPIRIN COATED 81 MG TABLET.EC PO SCH (09:41)
[2020-10-28] MEDS: SERTRALINE HCL 50 MG TABLET (FP) PO SCH (09:41)
[2020-10-28] MEDS: PANTOPRAZOLE 40 MG TABLET PO SCH (09:42)
[2020-10-28] MEDS: amLODIPine BESYLATE 5 MG TABLET (FP) PO SCH (09:42)
[2020-10-28] MEDS: CALCIUM 500MG/VIT-D 200 UNITS COMBO TABLET (FP) PO SCH ×2 (09:42→21:22)
[2020-10-28] MEDS: cloNIDine HCL 0.1 MG TABLET PO SCH ×2 (09:42→21:22)
[2020-10-28] MEDS: DOCUSATE SODIUM 100 MG CAPSULE (FP) PO SCH ×2 (09:43→21:22)
[2020-10-28] MEDS: ENOXAPARIN NA (PORCINE) 40 MG/0.4 ML DISP.SYRIN SQ SCH (09:45)
[2020-10-28] MEDS: POLYETHYLENE GLYCOL (HEALTHYLAX) 3350 17 GM PACKET PO SCH (09:45)
[2020-10-28] MEDS: COLLAGENASE CLOSTRIDIUM HIST. 30 GRAMS TUBE TP SCH (09:54)
[2020-10-28] MEDS: NYSTATIN 100000 UNIT/GM TOPICAL OINTMENT 15 GM TUBE TP SCH ×2 (09:54→21:23)
[2020-10-28] MEDS: VANCOMYCIN PREMIX 1.5 GM 1,500 MG/300 ML BAG IVPB SCH (09:55)
[2020-10-28] MEDS ORDERED: PT OWN MED DRAWER 7, Y5N ONE (12:09)
[2020-10-28] MEDS: ATORVASTATIN CA 20 MG TABLET (FP) PO SCH (21:22)
[2020-10-29] MEDS: oxyCODONE HCL 5 MG TABLET PO SCH ×7 (04:00→22:09)
[2020-10-29] MEDS: FUROSEMIDE 40 MG TABLET (FP) PO SCH ×2 (06:32→13:42)
[2020-10-29] MEDS: METOCLOPRAMIDE HCL 10 MG TABLET (FP) PO SCH ×3 (06:32→16:28)
[2020-10-29] MEDS: INSULIN SLIDING SCALE (NOVOLOG) 1 VIAL SQ SCH ×4 (06:33→22:21)
[2020-10-29] MEDS: INSULIN (NOVOLOG MIX 70/30) 100 UNITS/ML MDV SQ SCH ×2 (06:33→17:44)
[2020-10-29 08:49] LABS: BASO % 0.3 % (0-2.0); EOS % 4.2 % (0-4.5); HEMATOCRIT 36.7 % (35.4-49); HEMOGLOBIN 12.3 GM/dL (11.7-16.9); LYMPH % 28.4 % (8-40); MCH 27.7 pg (25.7-33.7); MCHC 33.7 g/dl (32.0-35.9); MEAN CELL VOLUME 82.3 fl (80-96); MEAN PLT VOLUME 8.8 fl (7.5-11.1); MONO % 8.3 % (3.8-10.2); NEUT % 58.8 % (42.8-82.8); PLATELET COUNT 143 10^3/uL (134-434); RBC 4.45 M/mm3 (4.00-5.60); RDW 15.5 % (11.9-15.9); WHITE BLOOD COUNT 7.3 K/mm3 (4.0-10.0)
[2020-10-29 09:11] LABS: BLOOD UREA NITROGEN 22.8 mg/dL (7-18)
[2020-10-29 09:14] LABS: CREATININE 1.3 mg/dL (0.55-1.3)
[2020-10-29] MEDS: ALPRAZolam 1 MG TABLET PO PRN ×3 (09:53→22:11)
[2020-10-29] MEDS: PANTOPRAZOLE 40 MG TABLET PO SCH (09:54)
[2020-10-29] MEDS: ASPIRIN COATED 81 MG TABLET.EC PO SCH (09:56)
[2020-10-29] MEDS: DOCUSATE SODIUM 100 MG CAPSULE (FP) PO SCH ×2 (09:56→22:11)
[2020-10-29] MEDS: cloNIDine HCL 0.1 MG TABLET PO SCH ×2 (09:57→22:11)
[2020-10-29] MEDS: SERTRALINE HCL 50 MG TABLET (FP) PO SCH (09:57)
[2020-10-29] MEDS: LACTOBACILLUS ACIDOPHILUS 1 TABLET PO SCH (09:57)
[2020-10-29] MEDS: SPIRONOLACTONE 25 MG TABLET PO SCH (09:58)
[2020-10-29] MEDS: amLODIPine BESYLATE 5 MG TABLET (FP) PO SCH (09:59)
[2020-10-29] MEDS: CALCIUM 500MG/VIT-D 200 UNITS COMBO TABLET (FP) PO SCH ×2 (09:59→22:11)
[2020-10-29] MEDS: POLYETHYLENE GLYCOL (HEALTHYLAX) 3350 17 GM PACKET PO SCH (10:00)
[2020-10-29] MEDS: ENOXAPARIN NA (PORCINE) 40 MG/0.4 ML DISP.SYRIN SQ SCH (10:00)
[2020-10-29] MEDS: NYSTATIN 100000 UNIT/GM TOPICAL OINTMENT 15 GM TUBE TP SCH ×2 (10:18→22:11)
[2020-10-29] MEDS: COLLAGENASE CLOSTRIDIUM HIST. 30 GRAMS TUBE TP SCH (10:19)
[2020-10-29] MEDS ORDERED: POTASSIUM CHLORIDE TABS 20 MEQ TABLET.ER (FP) PO ONE (10:45)
[2020-10-29] MEDS: VANCOMYCIN PREMIX 1.5 GM 1,500 MG/300 ML BAG IVPB SCH (11:36)
[2020-10-29] MEDS: ATORVASTATIN CA 20 MG TABLET (FP) PO SCH (22:11)
[2020-10-30] MEDS: oxyCODONE HCL 5 MG TABLET PO SCH ×8 (00:30→21:22)
[2020-10-30] MEDS: FUROSEMIDE 40 MG TABLET (FP) PO SCH ×2 (06:45→13:02)
[2020-10-30] MEDS: INSULIN SLIDING SCALE (NOVOLOG) 1 VIAL SQ SCH ×4 (06:45→21:23)
[2020-10-30] MEDS: METOCLOPRAMIDE HCL 10 MG TABLET (FP) PO SCH ×3 (06:45→17:49)
[2020-10-30] MEDS: INSULIN (NOVOLOG MIX 70/30) 100 UNITS/ML MDV SQ SCH ×2 (06:45→17:49)
[2020-10-30] MEDS: ENOXAPARIN NA (PORCINE) 40 MG/0.4 ML DISP.SYRIN SQ SCH (11:21)
[2020-10-30] MEDS: DOCUSATE SODIUM 100 MG CAPSULE (FP) PO SCH ×2 (11:22→21:23)
[2020-10-30] MEDS: LACTOBACILLUS ACIDOPHILUS 1 TABLET PO SCH (11:22)
[2020-10-30] MEDS: POLYETHYLENE GLYCOL (HEALTHYLAX) 3350 17 GM PACKET PO SCH (11:22)
[2020-10-30] MEDS: CALCIUM 500MG/VIT-D 200 UNITS COMBO TABLET (FP) PO SCH ×2 (11:23→21:23)
[2020-10-30] MEDS: cloNIDine HCL 0.1 MG TABLET PO SCH ×2 (11:23→21:23)
[2020-10-30] MEDS: ASPIRIN COATED 81 MG TABLET.EC PO SCH (11:23)
[2020-10-30] MEDS: SERTRALINE HCL 50 MG TABLET (FP) PO SCH (11:23)
[2020-10-30] MEDS: amLODIPine BESYLATE 5 MG TABLET (FP) PO SCH (11:23)
[2020-10-30] MEDS: SPIRONOLACTONE 25 MG TABLET PO SCH (11:23)
[2020-10-30] MEDS: VANCOMYCIN PREMIX 1.5 GM 1,500 MG/300 ML BAG IVPB SCH (11:24)
[2020-10-30] MEDS: PANTOPRAZOLE 40 MG TABLET PO SCH (11:24)
[2020-10-30] MEDS: NYSTATIN 100000 UNIT/GM TOPICAL OINTMENT 15 GM TUBE TP SCH ×2 (11:24→21:23)
[2020-10-30] MEDS: ALPRAZolam 1 MG TABLET PO PRN ×2 (11:53→17:53)
[2020-10-30] MEDS: COLLAGENASE CLOSTRIDIUM HIST. 30 GRAMS TUBE TP SCH (17:49)
[2020-10-30] MEDS: VANCOMYCIN 1 GRAM (PRE-DOCKED) 1,000 MG/250 ML BAG IVPB SCH (21:22)
[2020-10-30] MEDS: ATORVASTATIN CA 20 MG TABLET (FP) PO SCH (21:23)
[2020-10-31] MEDS: oxyCODONE HCL 5 MG TABLET PO SCH ×6 (01:26→15:45)
[2020-10-31] MEDS: ALPRAZolam 1 MG TABLET PO PRN ×2 (01:28→09:46)
[2020-10-31] MEDS: INSULIN SLIDING SCALE (NOVOLOG) 1 VIAL SQ SCH ×2 (06:30→11:07)
[2020-10-31] MEDS: INSULIN (NOVOLOG MIX 70/30) 100 UNITS/ML MDV SQ SCH (06:31)
[2020-10-31] MEDS: METOCLOPRAMIDE HCL 10 MG TABLET (FP) PO SCH ×2 (06:31→10:51)
[2020-10-31] MEDS: FUROSEMIDE 40 MG TABLET (FP) PO SCH ×2 (06:45→13:33)
[2020-10-31 07:24] VITALS: TEMP 98.1
[2020-10-31 08:26] LABS: BASO % 0.7 % (0-2.0); EOS % 3.2 % (0-4.5); HEMATOCRIT 37.3 % (35.4-49); HEMOGLOBIN 12.4 GM/dL (11.7-16.9); LYMPH % 31.8 % (8-40); MCHC 33.1 g/dl (32.0-35.9); MEAN CELL VOLUME 84.4 fl (80-96); MEAN PLT VOLUME 9.5 fl (7.5-11.1); MONO % 7.6 % (3.8-10.2); NEUT % 56.7 % (42.8-82.8); PLATELET COUNT 146 10^3/uL (134-434); RBC 4.42 M/mm3 (4.00-5.60); RDW 15.9 % (11.9-15.9); WHITE BLOOD COUNT 6.9 K/mm3 (4.0-10.0)
[2020-10-31 08:52] LABS: BLOOD UREA NITROGEN 20.9 mg/dL (7-18); CALCIUM 8.7 mg/dL (8.5-10.1)
[2020-10-31 08:55] LABS: CREATININE 1.2 mg/dL (0.55-1.3)
[2020-10-31] MEDS: VANCOMYCIN 1 GRAM (PRE-DOCKED) 1,000 MG/250 ML BAG IVPB SCH (08:55)
[2020-10-31] MEDS ORDERED: PT OWN MED DRAWER 7, Y5N ONE ×2 (08:58→10:49)
[2020-10-31] MEDS: cloNIDine HCL 0.1 MG TABLET PO SCH (09:28)
[2020-10-31] MEDS: CALCIUM 500MG/VIT-D 200 UNITS COMBO TABLET (FP) PO SCH (09:28)
[2020-10-31] MEDS: LACTOBACILLUS ACIDOPHILUS 1 TABLET PO SCH (09:29)
[2020-10-31] MEDS: SPIRONOLACTONE 25 MG TABLET PO SCH (09:30)
[2020-10-31] MEDS: ASPIRIN COATED 81 MG TABLET.EC PO SCH (09:30)
[2020-10-31] MEDS: amLODIPine BESYLATE 5 MG TABLET (FP) PO SCH (09:31)
[2020-10-31] MEDS: PANTOPRAZOLE 40 MG TABLET PO SCH (09:31)
[2020-10-31] MEDS: DOCUSATE SODIUM 100 MG CAPSULE (FP) PO SCH (09:31)
[2020-10-31] MEDS: SERTRALINE HCL 50 MG TABLET (FP) PO SCH (09:32)
[2020-10-31] MEDS: POLYETHYLENE GLYCOL (HEALTHYLAX) 3350 17 GM PACKET PO SCH (09:32)
[2020-10-31] MEDS: ENOXAPARIN NA (PORCINE) 40 MG/0.4 ML DISP.SYRIN SQ SCH (09:33)
[2020-10-31] MEDS: NYSTATIN 100000 UNIT/GM TOPICAL OINTMENT 15 GM TUBE TP SCH (11:01)
[2020-10-31] MEDS: COLLAGENASE CLOSTRIDIUM HIST. 30 GRAMS TUBE TP SCH (11:02)
[2020-10-31] MEDS ORDERED: INSULIN (NOVOLOG) ASPART 100 UNITS/ML 10ML VIAL ONE ×2 (11:05→11:23)
[2020-10-31 16:05] VITALS: BP 127/72; PULSE 59
[2020-10-31 17:02] VITALS: BMI 39.5
== END 2020-10-31 17:25 | disposition home health service (06) | DRG 344 ==
LOC: JER 13:30 → JERBED 17:35 → J8W 23:50
PROVIDERS: ADMIT Internal Medicine; ATTEND Internal Medicine
DX: E10.69 Type 1 diabetes mellitus with other specified complication (principal); R74.01 Elevation of levels of liver transaminase levels; L97.529 Non-pressure chronic ulcer of other part of left foot with unspecified severity; A49.02 Methicillin resistant Staphylococcus aureus infection, unspecified site; L03.116 Cellulitis of left lower limb; I50.30 Unspecified diastolic (congestive) heart failure; E10.52 Type 1 diabetes mellitus with diabetic peripheral angiopathy with gangrene; I96 Gangrene, not elsewhere classified; M86.9 Osteomyelitis, unspecified; E10.621 Type 1 diabetes mellitus with foot ulcer; F41.8 Other specified anxiety disorders; E10.42 Type 1 diabetes mellitus with diabetic polyneuropathy; K59.00 Constipation, unspecified; E10.43 Type 1 diabetes mellitus with diabetic autonomic (poly)neuropathy; K31.84 Gastroparesis; E10.65 Type 1 diabetes mellitus with hyperglycemia; E78.5 Hyperlipidemia, unspecified; E66.9 Obesity, unspecified; Z68.39 Body mass index [BMI] 39.0-39.9, adult
CPT/HCPCS: 36415; 73718-TC-LT; 80048; 80053; 82962; 85025; 85027; 85610; 85651; 85730; 86140; 86850; 86900; 86901; 87040; 87081; 93005; 93010; 93970-TC; 99285-25; C9803; G0463-25; G0480; J0735; U0003; U0005

== ENCOUNTER 2021-05-01 09:48 | Inpatient (IN) | payer OTHER ==
[2021-05-01 12:43] LABS: HEMATOCRIT 40.5 % (35.4-49); HEMOGLOBIN 13.5 GM/dL (11.7-16.9); MCH 28.1 pg (25.7-33.7); MCHC 33.3 g/dl (32.0-35.9); MEAN CELL VOLUME 84.3 fl (80-96); MEAN PLT VOLUME 9.1 fl (7.5-11.1); PLATELET COUNT 171 10^3/uL (134-434); RDW 15.9 % (11.9-15.9); WHITE BLOOD COUNT 21.8 K/mm3 (4.0-10.0)
[2021-05-01 12:54] LABS: INR 1.19 (0.83-1.09); PROTHROMBIN TIME (PATIENT) 13.7 SEC (9.7-13.0)
[2021-05-01 13:05] LABS: ALBUMIN 3.3 g/dl (3.4-5.0); BLOOD UREA NITROGEN 24.2 mg/dL (7-18)
[2021-05-01 13:08] LABS: CREATININE 1.1 mg/dL (0.55-1.3)
[2021-05-01 13:09] LABS: TOT PROT 7.5 g/dl (6.4-8.2)
[2021-05-01 13:10] LABS: BILIRUBIN,TOTAL 0.6 mg/dL (0.2-1)
[2021-05-01] MEDS ORDERED: VANCOMYCIN 1 GM in D5W (PRE-DOCKED) 1,000 MG/250 ML IVPB ONE (13:31)
[2021-05-01] MEDS ORDERED: VANCOMYCIN 1 GRAM (PRE-DOCKED) 1,000 MG/250 ML BAG IVPB ONE (13:44)
[2021-05-01 13:58] LABS: ANISOCYTOSIS 0; HELMET CELLS 0; HOWELL-JOLLY BODIES 0; MACROCYTOSIS 0; OVALOCYTE 0; PLATELET ESTIMATE NORMAL; ROULEAU 0; SICKELED CELLS 0; TARGET CELLS 0; TEAR DROP CELLS 0; TOXIC GRANULATION 0
[2021-05-01] MEDS ORDERED: CEFEPIME 2 GM/100 ML BAG IVPB ONE (15:21)
[2021-05-01] MEDS ORDERED: ACETAMINOPHEN 325 MG TABLET (FP) PO PRN (15:29)
[2021-05-01] MEDS ORDERED: AMMONIUM LACTATE 12% LOTION 225 GM BOTTLE TP PRN (15:30)
[2021-05-01] MEDS ORDERED: DOCUSATE SODIUM 100 MG CAPSULE (FP) PO PRN (15:34)
[2021-05-01] MEDS ORDERED: SODIUM CHLORIDE NASAL SPRAY 44 ML BOTTLE NS PRN (15:38)
[2021-05-01] MEDS ORDERED: ARTIFICIAL TEARS (POLYVINYL ALCOHOL) OPTH DROPS OU PRN (15:39)
[2021-05-01] MEDS ORDERED: SENNOSIDES 8.6MG TABLET (FP) PO PRN (15:39)
[2021-05-01] MEDS ORDERED: MAGNESIUM HYDROX 2400MG/30ML ORAL SUSPENSION 30 ML CUP PO PRN (15:42)
[2021-05-01] MEDS: CEFEPIME HCL/D5W 2 GM/50 ML BAG IVPB ONE ×2 (16:06→18:33)
[2021-05-01] MEDS ORDERED: PANTOPRAZOLE SODIUM 40 MG VIAL ONE (16:11)
[2021-05-01] MEDS ORDERED: ZINC SULFATE 220 MG CAPSULE (FP) ONE (16:11)
[2021-05-01] MEDS ORDERED: CHOLECALCIFEROL (VIT D3) 1,000 UNIT (25 MCG) TABLET ONE (16:11)
[2021-05-01] MEDS ORDERED: PANTOPRAZOLE 40 MG TABLET ONE (16:12)
[2021-05-01] MEDS ORDERED: SOTROVIMAB 500 MG in SODIUM CHLORIDE 100 ML IVPB ONE (17:10)
[2021-05-01] MEDS: oxyCODONE HCL 5 MG TABLET PO SCH ×2 (17:12→22:22)
[2021-05-01] MEDS: PANTOPRAZOLE 40 MG TABLET PO SCH (17:12)
[2021-05-01] MEDS: ZINC SULFATE 220 MG CAPSULE (FP) PO SCH (17:12)
[2021-05-01] MEDS: CHOLECALCIFEROL (VIT D3) 5000 UNITS (125 MCG) CAP PO SCH (17:13)
[2021-05-01] MEDS ORDERED: METOCLOPRAMIDE HCL 10 MG TABLET (FP) PO ONE (18:32)
[2021-05-01] MEDS: LACTOBACILLUS ACIDOPHILUS 1 TABLET PO SCH (18:43)
[2021-05-01] MEDS: METOCLOPRAMIDE HCL 10 MG TABLET (FP) PO SCH (18:43)
[2021-05-01] MEDS ORDERED: INSULIN (NOVOLOG MIX 70/30) 100 UNITS/ML MDV SQ ONE (18:48)
[2021-05-01] MEDS: INSULIN (NOVOLOG MIX 70/30) 100 UNITS/ML MDV SQ SCH (18:55)
[2021-05-01] MEDS: INSULIN SLIDING SCALE (NOVOLOG) 1 VIAL SQ SCH (18:55)
[2021-05-01] MEDS: COLLAGENASE CLOSTRIDIUM HIST. 30 GRAMS TUBE TP SCH (19:14)
[2021-05-01] MEDS ORDERED: ASCORBIC ACID 500 MG TABLET (FP) ONE (21:23)
[2021-05-01] MEDS ORDERED: ACETAMINOPHEN 325 MG TABLET (FP) ONE (21:23)
[2021-05-01] MEDS ORDERED: cloNIDine HCL 0.1 MG TABLET ONE (21:24)
[2021-05-01] MEDS ORDERED: ATORVASTATIN CA 20 MG TABLET (FP) ONE (21:24)
[2021-05-01] MEDS ORDERED: ALPRAZolam 1 MG TABLET ONE (21:24)
[2021-05-01] MEDS: ATORVASTATIN CA 20 MG TABLET (FP) PO SCH (21:33)
[2021-05-01] MEDS: ASCORBIC ACID 500 MG TABLET (FP) PO SCH (21:33)
[2021-05-01] MEDS: cloNIDine HCL 0.1 MG TABLET PO SCH (21:33)
[2021-05-01] MEDS: ALPRAZolam 1 MG TABLET PO PRN (21:34)
[2021-05-01 23:41] VITALS: BMI 38.2
[2021-05-02] MEDS: oxyCODONE HCL 5 MG TABLET PO SCH ×9 (01:59→21:50)
[2021-05-02] MEDS: METOCLOPRAMIDE HCL 10 MG TABLET (FP) PO SCH ×3 (06:36→15:47)
[2021-05-02] MEDS: FUROSEMIDE 40 MG TABLET (FP) PO SCH ×2 (06:36→13:02)
[2021-05-02] MEDS: INSULIN SLIDING SCALE (NOVOLOG) 1 VIAL SQ SCH ×3 (06:40→16:17)
[2021-05-02] MEDS: INSULIN (NOVOLOG MIX 70/30) 100 UNITS/ML MDV SQ SCH ×2 (06:40→16:06)
[2021-05-02 09:35] LABS: BASO % 0.1 % (0-2.0); EOS % 1.7 % (0-4.5); HEMOGLOBIN 12.4 GM/dL (11.7-16.9); LYMPH % 18.6 % (8-40); MCH 27.8 pg (25.7-33.7); MCHC 32.7 g/dl (32.0-35.9); MEAN CELL VOLUME 85.1 fl (80-96); MEAN PLT VOLUME 9.2 fl (7.5-11.1); MONO % 5.9 % (3.8-10.2); NEUT % 73.7 % (42.8-82.8); PLATELET COUNT 176 10^3/uL (134-434); RBC 4.47 M/mm3 (4.00-5.60); RDW 15.7 % (11.9-15.9); WHITE BLOOD COUNT 10.1 K/mm3 (4.0-10.0)
[2021-05-02 09:49] LABS: CALCIUM 8.6 mg/dL (8.5-10.1)
[2021-05-02] MEDS: LACTOBACILLUS ACIDOPHILUS 1 TABLET PO SCH (09:49)
[2021-05-02] MEDS: SPIRONOLACTONE 25 MG TABLET PO SCH (09:49)
[2021-05-02] MEDS: ASCORBIC ACID 500 MG TABLET (FP) PO SCH ×2 (09:49→21:50)
[2021-05-02] MEDS: POLYETHYLENE GLYCOL (HEALTHYLAX) 3350 17 GM PACKET PO SCH (09:49)
[2021-05-02] MEDS: cloNIDine HCL 0.1 MG TABLET PO SCH ×2 (09:49→21:50)
[2021-05-02] MEDS: ASPIRIN COATED 81 MG TABLET.EC PO SCH (09:50)
[2021-05-02] MEDS: ZINC SULFATE 220 MG CAPSULE (FP) PO SCH (09:50)
[2021-05-02] MEDS: PANTOPRAZOLE 40 MG TABLET PO SCH (09:50)
[2021-05-02] MEDS: amLODIPine BESYLATE 5 MG TABLET (FP) PO SCH (09:50)
[2021-05-02 09:51] LABS: MAGNESIUM 2.1 mg/dL (1.8-2.4)
[2021-05-02 09:52] LABS: BLOOD UREA NITROGEN 18.6 mg/dL (7-18)
[2021-05-02] MEDS: SERTRALINE HCL 50 MG TABLET (FP) PO SCH (10:13)
[2021-05-02] MEDS: ALPRAZolam 1 MG TABLET PO PRN (10:15)
[2021-05-02] MEDS ORDERED: POTASSIUM CHLORIDE TABS 20 MEQ TABLET.ER (FP) PO ONE (10:35)
[2021-05-02] MEDS ORDERED: INSULIN (NOVOLOG) ASPART 100 UNITS/ML 10ML VIAL ONE (11:16)
[2021-05-02] MEDS: VITAMIN A 10,000 UNITS (3000 MCG) CAPSULE PO SCH (11:20)
[2021-05-02] MEDS: CHOLECALCIFEROL (VIT D3) 5000 UNITS (125 MCG) CAP PO SCH (11:20)
[2021-05-02] MEDS: COLLAGENASE CLOSTRIDIUM HIST. 30 GRAMS TUBE TP SCH ×2 (13:02→13:12)
[2021-05-02] MEDS: VANCOMYCIN 1 GRAM (PRE-DOCKED) 1,000 MG/250 ML BAG IVPB SCH (15:48)
[2021-05-02] MEDS ORDERED: CEFEPIME HCL 1 GM VIAL (RESTRICTED TO ID) ONE (18:27)
[2021-05-02] MEDS ORDERED: DEXTROSE 5%-WATER 100 ML IVPB ONE (18:27)
[2021-05-02] MEDS: CEFEPIME 1 GM in DEXTROSE 5%-WATER 1 GM/100 ML BAG IVPB SCH (18:30)
[2021-05-02] MEDS: ATORVASTATIN CA 20 MG TABLET (FP) PO SCH (21:50)
[2021-05-03] MEDS ORDERED: DEXTROSE 5%-WATER 100 ML IVPB ONE ×3 (01:07→18:27)
[2021-05-03] MEDS ORDERED: CEFEPIME HCL 1 GM VIAL (RESTRICTED TO ID) ONE ×3 (01:07→18:27)
[2021-05-03] MEDS: CEFEPIME 1 GM in DEXTROSE 5%-WATER 1 GM/100 ML BAG IVPB SCH ×3 (01:11→18:30)
[2021-05-03] MEDS: oxyCODONE HCL 5 MG TABLET PO SCH ×8 (01:12→21:53)
[2021-05-03] MEDS: ALPRAZolam 1 MG TABLET PO PRN ×2 (01:24→15:53)
[2021-05-03] MEDS: VANCOMYCIN 1 GRAM (PRE-DOCKED) 1,000 MG/250 ML BAG IVPB SCH ×2 (04:34→15:56)
[2021-05-03] MEDS: FUROSEMIDE 40 MG TABLET (FP) PO SCH ×2 (06:48→13:44)
[2021-05-03] MEDS: METOCLOPRAMIDE HCL 10 MG TABLET (FP) PO SCH ×3 (06:49→15:55)
[2021-05-03] MEDS: INSULIN (NOVOLOG MIX 70/30) 100 UNITS/ML MDV SQ SCH ×2 (06:54→16:05)
[2021-05-03] MEDS: INSULIN SLIDING SCALE (NOVOLOG) 1 VIAL SQ SCH ×3 (06:54→16:05)
[2021-05-03] MEDS: ASCORBIC ACID 500 MG TABLET (FP) PO SCH ×2 (10:29→21:52)
[2021-05-03] MEDS: VITAMIN A 10,000 UNITS (3000 MCG) CAPSULE PO SCH (10:29)
[2021-05-03] MEDS: cloNIDine HCL 0.1 MG TABLET PO SCH ×2 (10:30→21:53)
[2021-05-03] MEDS: SPIRONOLACTONE 25 MG TABLET PO SCH (10:30)
[2021-05-03] MEDS: ASPIRIN COATED 81 MG TABLET.EC PO SCH (10:30)
[2021-05-03] MEDS: ZINC SULFATE 220 MG CAPSULE (FP) PO SCH (10:31)
[2021-05-03] MEDS: PANTOPRAZOLE 40 MG TABLET PO SCH (10:31)
[2021-05-03] MEDS: amLODIPine BESYLATE 5 MG TABLET (FP) PO SCH (10:31)
[2021-05-03] MEDS: POLYETHYLENE GLYCOL (HEALTHYLAX) 3350 17 GM PACKET PO SCH (10:32)
[2021-05-03] MEDS: SERTRALINE HCL 50 MG TABLET (FP) PO SCH (10:32)
[2021-05-03] MEDS: LACTOBACILLUS ACIDOPHILUS 1 TABLET PO SCH (10:32)
[2021-05-03] MEDS: COLLAGENASE CLOSTRIDIUM HIST. 30 GRAMS TUBE TP SCH (10:35)
[2021-05-03] MEDS: CHOLECALCIFEROL (VIT D3) 5000 UNITS (125 MCG) CAP PO SCH (10:36)
[2021-05-03] MEDS ORDERED: POTASSIUM CHLORIDE TABS 20 MEQ TABLET.ER (FP) PO ONE (11:30)
[2021-05-03 12:59] LABS: BASO % 0.3 % (0-2.0); HEMATOCRIT 36.3 % (35.4-49); HEMOGLOBIN 12.4 GM/dL (11.7-16.9); LYMPH % 19.9 % (8-40); MCH 28.8 pg (25.7-33.7); MCHC 34.1 g/dl (32.0-35.9); MEAN CELL VOLUME 84.4 fl (80-96); MEAN PLT VOLUME 8.2 fl (7.5-11.1); NEUT % 69.8 % (42.8-82.8); PLATELET COUNT 186 10^3/uL (134-434); RDW 15.9 % (11.9-15.9); WHITE BLOOD COUNT 8.9 K/mm3 (4.0-10.0)
[2021-05-03 13:28] LABS: CALCIUM 8.5 mg/dL (8.5-10.1)
[2021-05-03 13:29] LABS: ALBUMIN 2.9 g/dl (3.4-5.0)
[2021-05-03 13:32] LABS: CREATININE 1.2 mg/dL (0.55-1.3)
[2021-05-03] MEDS: ENOXAPARIN NA (PORCINE) 40 MG/0.4 ML DISP.SYRIN SQ SCH (15:55)
[2021-05-03] MEDS ORDERED: INSULIN (NOVOLOG) ASPART 100 UNITS/ML 10ML VIAL ONE (16:16)
[2021-05-04] MEDS: oxyCODONE HCL 5 MG TABLET PO SCH ×8 (00:41→21:23)
[2021-05-04] MEDS ORDERED: DEXTROSE 5%-WATER 100 ML IVPB ONE ×3 (01:01→16:32)
[2021-05-04] MEDS ORDERED: CEFEPIME HCL 1 GM VIAL (RESTRICTED TO ID) ONE ×2 (01:01→09:37)
[2021-05-04] MEDS: CEFEPIME 1 GM in DEXTROSE 5%-WATER 1 GM/100 ML BAG IVPB SCH ×2 (01:07→09:44)
[2021-05-04] MEDS: ALPRAZolam 1 MG TABLET PO PRN ×3 (01:54→23:35)
[2021-05-04] MEDS: VANCOMYCIN 1 GRAM (PRE-DOCKED) 1,000 MG/250 ML BAG IVPB SCH ×2 (03:50→15:30)
[2021-05-04] MEDS: FUROSEMIDE 40 MG TABLET (FP) PO SCH ×2 (06:41→13:53)
[2021-05-04] MEDS: METOCLOPRAMIDE HCL 10 MG TABLET (FP) PO SCH ×3 (06:41→16:56)
[2021-05-04] MEDS: INSULIN (NOVOLOG MIX 70/30) 100 UNITS/ML MDV SQ SCH ×2 (06:46→17:07)
[2021-05-04] MEDS: INSULIN SLIDING SCALE (NOVOLOG) 1 VIAL SQ SCH ×3 (06:46→17:06)
[2021-05-04 09:39] LABS: BASO % 0.4 % (0-2.0); EOS % 3.1 % (0-4.5); HEMATOCRIT 38.6 % (35.4-49); HEMOGLOBIN 12.5 GM/dL (11.7-16.9); LYMPH % 16.6 % (8-40); MCH 27.9 pg (25.7-33.7); MCHC 32.5 g/dl (32.0-35.9); MEAN CELL VOLUME 85.7 fl (80-96); MEAN PLT VOLUME 8.6 fl (7.5-11.1); NEUT % 72.9 % (42.8-82.8); PLATELET COUNT 197 10^3/uL (134-434); RDW 15.9 % (11.9-15.9); WHITE BLOOD COUNT 7.9 K/mm3 (4.0-10.0)
[2021-05-04] MEDS: POLYETHYLENE GLYCOL (HEALTHYLAX) 3350 17 GM PACKET PO SCH (09:44)
[2021-05-04] MEDS: ENOXAPARIN NA (PORCINE) 40 MG/0.4 ML DISP.SYRIN SQ SCH (09:48)
[2021-05-04] MEDS: cloNIDine HCL 0.1 MG TABLET PO SCH ×2 (09:51→21:24)
[2021-05-04] MEDS: ZINC SULFATE 220 MG CAPSULE (FP) PO SCH (09:51)
[2021-05-04] MEDS: ASCORBIC ACID 500 MG TABLET (FP) PO SCH ×2 (09:52→21:24)
[2021-05-04] MEDS: amLODIPine BESYLATE 5 MG TABLET (FP) PO SCH (09:52)
[2021-05-04] MEDS: PANTOPRAZOLE 40 MG TABLET PO SCH (09:52)
[2021-05-04] MEDS: VITAMIN A 10,000 UNITS (3000 MCG) CAPSULE PO SCH (09:52)
[2021-05-04] MEDS: SPIRONOLACTONE 25 MG TABLET PO SCH (09:53)
[2021-05-04] MEDS: COLLAGENASE CLOSTRIDIUM HIST. 30 GRAMS TUBE TP SCH (09:53)
[2021-05-04] MEDS: CHOLECALCIFEROL (VIT D3) 5000 UNITS (125 MCG) CAP PO SCH (09:53)
[2021-05-04] MEDS: SERTRALINE HCL 50 MG TABLET (FP) PO SCH (09:53)
[2021-05-04] MEDS: LACTOBACILLUS ACIDOPHILUS 1 TABLET PO SCH (09:53)
[2021-05-04 10:01] LABS: ALBUMIN 2.9 g/dl (3.4-5.0); CALCIUM 8.2 mg/dL (8.5-10.1)
[2021-05-04 10:02] LABS: BLOOD UREA NITROGEN 18.4 mg/dL (7-18)
[2021-05-04 10:05] LABS: CREATININE 1.2 mg/dL (0.55-1.3)
[2021-05-04 10:06] LABS: BILIRUBIN,TOTAL 0.7 mg/dL (0.2-1); TOT PROT 7.1 g/dl (6.4-8.2)
[2021-05-04 10:17] LABS: ERYTHROCYTE SEDIMENTATION RATE 70 mm/hr (0-20)
[2021-05-04] MEDS ORDERED: ALPRAZolam 1 MG TABLET PO ONE (13:40)
[2021-05-04] MEDS ORDERED: MEROPENEM 1 GM VIAL (RESTRICTED TO ID) IVPB ONE (16:31)
[2021-05-04] MEDS: MEROPENEM 1 GM in DEXTROSE 5%-WATER 100 ML IVPB SCH (17:08)
[2021-05-04] MEDS ORDERED: INSULIN (NOVOLOG) ASPART 100 UNITS/ML 10ML VIAL ONE (17:20)
[2021-05-04] MEDS ORDERED: INSULIN (NOVOLOG MIX 70/30) 100 UNITS/ML MDV SQ SCH (18:53)
[2021-05-04] MEDS: VANCOMYCIN/WATER BAGS 1,250 MG/250 ML BAG IVPB SCH (20:20)
[2021-05-05] MEDS: oxyCODONE HCL 5 MG TABLET PO SCH ×8 (00:36→21:55)
[2021-05-05] MEDS: MEROPENEM 1 GM in DEXTROSE 5%-WATER 100 ML IVPB SCH ×3 (02:00→17:46)
[2021-05-05] MEDS: FUROSEMIDE 40 MG TABLET (FP) PO SCH ×2 (06:40→15:00)
[2021-05-05] MEDS: METOCLOPRAMIDE HCL 10 MG TABLET (FP) PO SCH ×3 (06:40→16:19)
[2021-05-05] MEDS: INSULIN SLIDING SCALE (NOVOLOG) 1 VIAL SQ SCH ×3 (06:51→16:32)
[2021-05-05 09:48] LABS: BASO % 0.8 % (0-2.0); EOS % 2.9 % (0-4.5); HEMATOCRIT 36.5 % (35.4-49); HEMOGLOBIN 12.4 GM/dL (11.7-16.9); LYMPH % 22.6 % (8-40); MCH 28.4 pg (25.7-33.7); MCHC 33.9 g/dl (32.0-35.9); MEAN PLT VOLUME 8.2 fl (7.5-11.1); MONO % 7.2 % (3.8-10.2); NEUT % 66.5 % (42.8-82.8); PLATELET COUNT 202 10^3/uL (134-434); RBC 4.35 M/mm3 (4.00-5.60); RDW 15.9 % (11.9-15.9); WHITE BLOOD COUNT 10.7 K/mm3 (4.0-10.0)
[2021-05-05] MEDS ORDERED: DEXTROSE 5%-WATER 100 ML IVPB ONE ×2 (09:53)
[2021-05-05] MEDS ORDERED: MEROPENEM 1 GM VIAL (RESTRICTED TO ID) IVPB ONE ×2 (09:53)
[2021-05-05 10:17] LABS: CALCIUM 8.6 mg/dL (8.5-10.1)
[2021-05-05 10:18] LABS: ALBUMIN 2.7 g/dl (3.4-5.0); BLOOD UREA NITROGEN 15.4 mg/dL (7-18)
[2021-05-05 10:20] LABS: PLATELET ESTIMATE NORMAL
[2021-05-05 10:21] LABS: CREATININE 1.1 mg/dL (0.55-1.3)
[2021-05-05 10:22] LABS: BILIRUBIN,TOTAL 0.6 mg/dL (0.2-1); TOT PROT 6.8 g/dl (6.4-8.2)
[2021-05-05 10:35] LABS: ERYTHROCYTE SEDIMENTATION RATE 76 mm/hr (0-20)
[2021-05-05] MEDS: SERTRALINE HCL 50 MG TABLET (FP) PO SCH (10:44)
[2021-05-05] MEDS: LACTOBACILLUS ACIDOPHILUS 1 TABLET PO SCH (10:44)
[2021-05-05] MEDS: VITAMIN A 10,000 UNITS (3000 MCG) CAPSULE PO SCH (10:45)
[2021-05-05] MEDS: cloNIDine HCL 0.1 MG TABLET PO SCH ×2 (10:45→21:55)
[2021-05-05] MEDS: PANTOPRAZOLE 40 MG TABLET PO SCH (10:45)
[2021-05-05] MEDS: SPIRONOLACTONE 25 MG TABLET PO SCH (10:46)
[2021-05-05] MEDS: ENOXAPARIN NA (PORCINE) 40 MG/0.4 ML DISP.SYRIN SQ SCH (10:48)
[2021-05-05] MEDS: POLYETHYLENE GLYCOL (HEALTHYLAX) 3350 17 GM PACKET PO SCH (10:48)
[2021-05-05] MEDS: COLLAGENASE CLOSTRIDIUM HIST. 30 GRAMS TUBE TP SCH (10:49)
[2021-05-05] MEDS: ASCORBIC ACID 500 MG TABLET (FP) PO SCH ×2 (10:49→21:55)
[2021-05-05] MEDS: ZINC SULFATE 220 MG CAPSULE (FP) PO SCH (10:49)
[2021-05-05] MEDS: CHOLECALCIFEROL (VIT D3) 5000 UNITS (125 MCG) CAP PO SCH (10:49)
[2021-05-05] MEDS: amLODIPine BESYLATE 5 MG TABLET (FP) PO SCH (10:49)
[2021-05-05] MEDS: VANCOMYCIN/WATER BAGS 1,250 MG/250 ML BAG IVPB SCH (11:49)
[2021-05-05] MEDS: DAPTOMYCIN 900 MG in SODIUM CHLORIDE 100 ML IVPB SCH (17:42)
[2021-05-05] MEDS: INSULIN (NOVOLOG MIX 70/30) 100 UNITS/ML MDV SQ SCH (17:42)
[2021-05-05] MEDS: ALPRAZolam 1 MG TABLET PO PRN (19:09)
[2021-05-06] MEDS ORDERED: DEXTROSE 5%-WATER 100 ML IVPB ONE ×2 (01:19→09:28)
[2021-05-06] MEDS ORDERED: MEROPENEM 1 GM VIAL (RESTRICTED TO ID) IVPB ONE ×2 (01:19→09:28)
[2021-05-06] MEDS: oxyCODONE HCL 5 MG TABLET PO SCH ×8 (01:23→22:07)
[2021-05-06] MEDS: MEROPENEM 1 GM in DEXTROSE 5%-WATER 100 ML IVPB SCH ×2 (01:23→09:36)
[2021-05-06] MEDS: METOCLOPRAMIDE HCL 10 MG TABLET (FP) PO SCH ×3 (06:36→16:22)
[2021-05-06] MEDS: FUROSEMIDE 40 MG TABLET (FP) PO SCH ×2 (06:36→13:54)
[2021-05-06] MEDS: INSULIN (NOVOLOG MIX 70/30) 100 UNITS/ML MDV SQ SCH ×2 (06:50→16:29)
[2021-05-06] MEDS: INSULIN SLIDING SCALE (NOVOLOG) 1 VIAL SQ SCH ×3 (06:51→16:30)
[2021-05-06] MEDS ORDERED: INSULIN (NOVOLOG) ASPART 100 UNITS/ML 10ML VIAL ONE ×3 (07:01→16:17)
[2021-05-06] MEDS: ALPRAZolam 1 MG TABLET PO PRN (07:48)
[2021-05-06 08:48] LABS: EOS % 2.2 % (0-4.5); HEMATOCRIT 39.3 % (35.4-49); HEMOGLOBIN 12.9 GM/dL (11.7-16.9); MCH 27.8 pg (25.7-33.7); MCHC 32.8 g/dl (32.0-35.9); MEAN CELL VOLUME 84.6 fl (80-96); MEAN PLT VOLUME 8.5 fl (7.5-11.1); MONO % 4.4 % (3.8-10.2); NEUT % 70.4 % (42.8-82.8); PLATELET COUNT 221 10^3/uL (134-434); RBC 4.64 M/mm3 (4.00-5.60); RDW 16.3 % (11.9-15.9); WHITE BLOOD COUNT 8.8 K/mm3 (4.0-10.0)
[2021-05-06 09:13] LABS: BLOOD UREA NITROGEN 16.3 mg/dL (7-18)
[2021-05-06 09:14] LABS: CALCIUM 8.7 mg/dL (8.5-10.1)
[2021-05-06 09:15] LABS: TOT PROT 7.4 g/dl (6.4-8.2)
[2021-05-06 09:16] LABS: BILIRUBIN,TOTAL 0.7 mg/dL (0.2-1)
[2021-05-06 09:17] LABS: CREATININE 1.2 mg/dL (0.55-1.3)
[2021-05-06 09:35] LABS: ERYTHROCYTE SEDIMENTATION RATE 76 mm/hr (0-20)
[2021-05-06] MEDS: VITAMIN A 10,000 UNITS (3000 MCG) CAPSULE PO SCH (09:36)
[2021-05-06] MEDS: POLYETHYLENE GLYCOL (HEALTHYLAX) 3350 17 GM PACKET PO SCH (09:36)
[2021-05-06] MEDS: cloNIDine HCL 0.1 MG TABLET PO SCH ×2 (09:36→22:07)
[2021-05-06] MEDS: ENOXAPARIN NA (PORCINE) 40 MG/0.4 ML DISP.SYRIN SQ SCH (09:37)
[2021-05-06] MEDS: LACTOBACILLUS ACIDOPHILUS 1 TABLET PO SCH (09:37)
[2021-05-06] MEDS: PANTOPRAZOLE 40 MG TABLET PO SCH (09:37)
[2021-05-06] MEDS: amLODIPine BESYLATE 5 MG TABLET (FP) PO SCH (09:37)
[2021-05-06] MEDS: ASCORBIC ACID 500 MG TABLET (FP) PO SCH ×2 (09:37→22:07)
[2021-05-06] MEDS: ZINC SULFATE 220 MG CAPSULE (FP) PO SCH (09:37)
[2021-05-06] MEDS: SERTRALINE HCL 50 MG TABLET (FP) PO SCH (09:37)
[2021-05-06] MEDS: SPIRONOLACTONE 25 MG TABLET PO SCH (09:37)
[2021-05-06] MEDS: CHOLECALCIFEROL (VIT D3) 5000 UNITS (125 MCG) CAP PO SCH (09:38)
[2021-05-06] MEDS ORDERED: POTASSIUM CHLORIDE TABS 20 MEQ TABLET.ER (FP) PO ONE (10:00)
[2021-05-06] MEDS: DAPTOMYCIN 900 MG in SODIUM CHLORIDE 100 ML IVPB SCH (10:29)
[2021-05-06] MEDS: COLLAGENASE CLOSTRIDIUM HIST. 30 GRAMS TUBE TP SCH (10:30)
[2021-05-06] MEDS: ALPRAZolam 1 MG TABLET PO SCH (17:45)
[2021-05-07] MEDS: oxyCODONE HCL 5 MG TABLET PO SCH ×8 (01:39→21:24)
[2021-05-07] MEDS: FUROSEMIDE 40 MG TABLET (FP) PO SCH ×2 (06:01→14:31)
[2021-05-07] MEDS: ALPRAZolam 1 MG TABLET PO SCH ×3 (06:01→17:12)
[2021-05-07] MEDS: METOCLOPRAMIDE HCL 10 MG TABLET (FP) PO SCH ×3 (06:03→16:31)
[2021-05-07] MEDS: INSULIN SLIDING SCALE (NOVOLOG) 1 VIAL SQ SCH ×3 (06:50→16:39)
[2021-05-07] MEDS: INSULIN (NOVOLOG MIX 70/30) 100 UNITS/ML MDV SQ SCH ×2 (06:51→16:38)
[2021-05-07 08:02] LABS: BASO % 0.3 % (0-2.0); EOS % 2.7 % (0-4.5); HEMATOCRIT 37.2 % (35.4-49); HEMOGLOBIN 12.3 GM/dL (11.7-16.9); LYMPH % 26.3 % (8-40); MCH 28.1 pg (25.7-33.7); MCHC 33.1 g/dl (32.0-35.9); MEAN CELL VOLUME 84.7 fl (80-96); MEAN PLT VOLUME 8.3 fl (7.5-11.1); MONO % 9.8 % (3.8-10.2); NEUT % 60.9 % (42.8-82.8); PLATELET COUNT 203 10^3/uL (134-434); RBC 4.39 M/mm3 (4.00-5.60); RDW 15.8 % (11.9-15.9); WHITE BLOOD COUNT 8.1 K/mm3 (4.0-10.0)
[2021-05-07 08:51] LABS: ALBUMIN 2.8 g/dl (3.4-5.0)
[2021-05-07 08:53] LABS: CALCIUM 8.5 mg/dL (8.5-10.1)
[2021-05-07 08:54] LABS: BLOOD UREA NITROGEN 16.7 mg/dL (7-18); TOT PROT 6.7 g/dl (6.4-8.2)
[2021-05-07] MEDS ORDERED: POTASSIUM CHLORIDE TABS 20 MEQ TABLET.ER (FP) PO ONE (09:00)
[2021-05-07 09:01] LABS: BILIRUBIN,TOTAL 0.7 mg/dL (0.2-1)
[2021-05-07] MEDS: ZINC SULFATE 220 MG CAPSULE (FP) PO SCH (09:39)
[2021-05-07] MEDS: VITAMIN A 10,000 UNITS (3000 MCG) CAPSULE PO SCH (09:39)
[2021-05-07] MEDS: PANTOPRAZOLE 40 MG TABLET PO SCH (09:39)
[2021-05-07] MEDS: amLODIPine BESYLATE 5 MG TABLET (FP) PO SCH (09:39)
[2021-05-07] MEDS: SERTRALINE HCL 50 MG TABLET (FP) PO SCH (09:39)
[2021-05-07] MEDS: ASCORBIC ACID 500 MG TABLET (FP) PO SCH ×2 (09:39→21:26)
[2021-05-07] MEDS: cloNIDine HCL 0.1 MG TABLET PO SCH ×2 (09:39→21:25)
[2021-05-07] MEDS: LACTOBACILLUS ACIDOPHILUS 1 TABLET PO SCH (09:39)
[2021-05-07] MEDS: SPIRONOLACTONE 25 MG TABLET PO SCH (09:39)
[2021-05-07] MEDS: POLYETHYLENE GLYCOL (HEALTHYLAX) 3350 17 GM PACKET PO SCH (09:40)
[2021-05-07] MEDS: CHOLECALCIFEROL (VIT D3) 5000 UNITS (125 MCG) CAP PO SCH (09:40)
[2021-05-07] MEDS: ENOXAPARIN NA (PORCINE) 40 MG/0.4 ML DISP.SYRIN SQ SCH (09:40)
[2021-05-07] MEDS ORDERED: INSULIN (NOVOLOG MIX 70/30) 100 UNITS/ML MDV SQ SCH (10:51)
[2021-05-07] MEDS: DAPTOMYCIN 900 MG in SODIUM CHLORIDE 100 ML IVPB SCH (11:05)
[2021-05-07] MEDS: COLLAGENASE CLOSTRIDIUM HIST. 30 GRAMS TUBE TP SCH (13:01)
[2021-05-08] MEDS ORDERED: ALPRAZolam 1 MG TABLET PO ONE
[2021-05-08] MEDS: oxyCODONE HCL 5 MG TABLET PO SCH ×10 (00:32→21:51)
[2021-05-08] MEDS: ALPRAZolam 1 MG TABLET PO SCH ×4 (06:34→19:15)
[2021-05-08] MEDS: METOCLOPRAMIDE HCL 10 MG TABLET (FP) PO SCH ×3 (06:35→16:57)
[2021-05-08] MEDS: FUROSEMIDE 40 MG TABLET (FP) PO SCH ×2 (06:35→13:59)
[2021-05-08] MEDS: INSULIN (NOVOLOG MIX 70/30) 100 UNITS/ML MDV SQ SCH ×2 (06:36→16:57)
[2021-05-08] MEDS: INSULIN SLIDING SCALE (NOVOLOG) 1 VIAL SQ SCH ×3 (06:43→16:29)
[2021-05-08] MEDS ORDERED: AMMONIUM LACTATE 12% LOTION 225 GM BOTTLE TP PRN (08:27)
[2021-05-08 08:40] LABS: BASO % 0.6 % (0-2.0); EOS % 2.6 % (0-4.5); HEMATOCRIT 38.4 % (35.4-49); HEMOGLOBIN 12.5 GM/dL (11.7-16.9); LYMPH % 28.1 % (8-40); MCH 27.7 pg (25.7-33.7); MCHC 32.5 g/dl (32.0-35.9); MEAN CELL VOLUME 85.3 fl (80-96); MEAN PLT VOLUME 8.6 fl (7.5-11.1); MONO % 6.3 % (3.8-10.2); NEUT % 62.4 % (42.8-82.8); PLATELET COUNT 236 10^3/uL (134-434); RDW 16.2 % (11.9-15.9); WHITE BLOOD COUNT 7.5 K/mm3 (4.0-10.0)
[2021-05-08 09:00] LABS: CALCIUM 8.6 mg/dL (8.5-10.1)
[2021-05-08 09:01] LABS: BLOOD UREA NITROGEN 18.6 mg/dL (7-18)
[2021-05-08 09:04] LABS: CREATININE 1.1 mg/dL (0.55-1.3)
[2021-05-08 09:05] LABS: BILIRUBIN,TOTAL 0.6 mg/dL (0.2-1); TOT PROT 7.2 g/dl (6.4-8.2)
[2021-05-08 09:53] LABS: ERYTHROCYTE SEDIMENTATION RATE 74 mm/hr (0-20)
[2021-05-08] MEDS: ZINC SULFATE 220 MG CAPSULE (FP) PO SCH (09:58)
[2021-05-08] MEDS: ASCORBIC ACID 500 MG TABLET (FP) PO SCH ×2 (09:58→21:51)
[2021-05-08] MEDS: amLODIPine BESYLATE 5 MG TABLET (FP) PO SCH (09:58)
[2021-05-08] MEDS: PANTOPRAZOLE 40 MG TABLET PO SCH (09:58)
[2021-05-08] MEDS: SERTRALINE HCL 50 MG TABLET (FP) PO SCH (09:59)
[2021-05-08] MEDS: VITAMIN A 10,000 UNITS (3000 MCG) CAPSULE PO SCH (09:59)
[2021-05-08] MEDS: cloNIDine HCL 0.1 MG TABLET PO SCH ×2 (10:00→21:51)
[2021-05-08] MEDS: LACTOBACILLUS ACIDOPHILUS 1 TABLET PO SCH (10:00)
[2021-05-08] MEDS: CHOLECALCIFEROL (VIT D3) 5000 UNITS (125 MCG) CAP PO SCH (10:01)
[2021-05-08] MEDS: SPIRONOLACTONE 25 MG TABLET PO SCH (10:01)
[2021-05-08] MEDS: ENOXAPARIN NA (PORCINE) 40 MG/0.4 ML DISP.SYRIN SQ SCH (10:01)
[2021-05-08] MEDS: COLLAGENASE CLOSTRIDIUM HIST. 30 GRAMS TUBE TP SCH (10:02)
[2021-05-08] MEDS: POLYETHYLENE GLYCOL (HEALTHYLAX) 3350 17 GM PACKET PO SCH (10:02)
[2021-05-08] MEDS: DAPTOMYCIN 900 MG in SODIUM CHLORIDE 100 ML IVPB SCH ×2 (10:02→10:27)
[2021-05-08] MEDS: CLINDAMYCIN HCL 150 MG CAPSULE (FP) PO SCH ×2 (14:59→21:50)
[2021-05-09] MEDS: oxyCODONE HCL 5 MG TABLET PO SCH ×8 (00:47→21:08)
[2021-05-09] MEDS: ALPRAZolam 1 MG TABLET PO SCH ×4 (00:48→18:11)
[2021-05-09] MEDS ORDERED: INSULIN (NOVOLOG MIX 70/30) 100 UNITS/ML MDV SQ SCH ×2 (01:48→02:00)
[2021-05-09] MEDS ORDERED: INSULIN (NOVOLOG) ASPART 100 UNITS/ML 10ML VIAL ONE ×2 (06:38→07:52)
[2021-05-09] MEDS: METOCLOPRAMIDE HCL 10 MG TABLET (FP) PO SCH ×3 (06:42→16:05)
[2021-05-09] MEDS: FUROSEMIDE 40 MG TABLET (FP) PO SCH ×2 (06:42→13:57)
[2021-05-09] MEDS: INSULIN SLIDING SCALE (NOVOLOG) 1 VIAL SQ SCH ×3 (06:43→16:05)
[2021-05-09] MEDS: INSULIN (NOVOLOG MIX 70/30) 100 UNITS/ML MDV SQ SCH ×2 (06:43→16:15)
[2021-05-09] MEDS: CLINDAMYCIN HCL 150 MG CAPSULE (FP) PO SCH ×3 (06:46→21:10)
[2021-05-09 10:19] LABS: BASO % 0.6 % (0-2.0); EOS % 2.6 % (0-4.5); HEMATOCRIT 36.2 % (35.4-49); HEMOGLOBIN 11.8 GM/dL (11.7-16.9); LYMPH % 27.5 % (8-40); MCH 27.6 pg (25.7-33.7); MCHC 32.4 g/dl (32.0-35.9); MEAN PLT VOLUME 8.6 fl (7.5-11.1); MONO % 7.9 % (3.8-10.2); NEUT % 61.4 % (42.8-82.8); PLATELET COUNT 211 10^3/uL (134-434); RBC 4.26 M/mm3 (4.00-5.60); RDW 16.2 % (11.9-15.9); WHITE BLOOD COUNT 6.7 K/mm3 (4.0-10.0)
[2021-05-09 10:35] LABS: CALCIUM 8.8 mg/dL (8.5-10.1)
[2021-05-09 10:36] LABS: ALBUMIN 2.8 g/dl (3.4-5.0); BLOOD UREA NITROGEN 19.6 mg/dL (7-18)
[2021-05-09] MEDS: ENOXAPARIN NA (PORCINE) 40 MG/0.4 ML DISP.SYRIN SQ SCH (10:38)
[2021-05-09] MEDS: ZINC SULFATE 220 MG CAPSULE (FP) PO SCH (10:38)
[2021-05-09] MEDS: PANTOPRAZOLE 40 MG TABLET PO SCH (10:38)
[2021-05-09] MEDS: amLODIPine BESYLATE 5 MG TABLET (FP) PO SCH (10:38)
[2021-05-09] MEDS: cloNIDine HCL 0.1 MG TABLET PO SCH ×2 (10:38→21:10)
[2021-05-09] MEDS: SERTRALINE HCL 50 MG TABLET (FP) PO SCH (10:38)
[2021-05-09 10:39] LABS: CREATININE 1.1 mg/dL (0.55-1.3)
[2021-05-09] MEDS: ASCORBIC ACID 500 MG TABLET (FP) PO SCH ×2 (10:39→21:10)
[2021-05-09] MEDS: SPIRONOLACTONE 25 MG TABLET PO SCH (10:39)
[2021-05-09] MEDS: POLYETHYLENE GLYCOL (HEALTHYLAX) 3350 17 GM PACKET PO SCH (10:39)
[2021-05-09 10:40] LABS: BILIRUBIN,TOTAL 0.5 mg/dL (0.2-1)
[2021-05-09] MEDS: LACTOBACILLUS ACIDOPHILUS 1 TABLET PO SCH ×2 (10:43→10:44)
[2021-05-09 10:57] LABS: ERYTHROCYTE SEDIMENTATION RATE 51 mm/hr (0-20)
[2021-05-09] MEDS: COLLAGENASE CLOSTRIDIUM HIST. 30 GRAMS TUBE TP SCH (12:13)
[2021-05-09] MEDS: VITAMIN A 10,000 UNITS (3000 MCG) CAPSULE PO SCH (12:14)
[2021-05-09] MEDS: CHOLECALCIFEROL (VIT D3) 5000 UNITS (125 MCG) CAP PO SCH (13:57)
[2021-05-10] MEDS: ALPRAZolam 1 MG TABLET PO SCH ×5 (00:09→23:50)
[2021-05-10] MEDS: oxyCODONE HCL 5 MG TABLET PO SCH ×8 (00:10→21:48)
[2021-05-10] MEDS: CLINDAMYCIN HCL 150 MG CAPSULE (FP) PO SCH ×3 (05:59→21:47)
[2021-05-10] MEDS: FUROSEMIDE 40 MG TABLET (FP) PO SCH ×2 (05:59→14:27)
[2021-05-10] MEDS: INSULIN SLIDING SCALE (NOVOLOG) 1 VIAL SQ SCH ×3 (06:19→16:18)
[2021-05-10] MEDS ORDERED: INSULIN (NOVOLOG) ASPART 100 UNITS/ML 10ML VIAL ONE ×3 (06:54→21:37)
[2021-05-10] MEDS ORDERED: INSULIN (NOVOLOG MIX 70/30) 100 UNITS/ML MDV SQ SCH (07:00)
[2021-05-10] MEDS: METOCLOPRAMIDE HCL 10 MG TABLET (FP) PO SCH ×3 (07:27→15:47)
[2021-05-10] MEDS: LACTOBACILLUS ACIDOPHILUS 1 TABLET PO SCH ×2 (09:02→09:06)
[2021-05-10] MEDS: ENOXAPARIN NA (PORCINE) 40 MG/0.4 ML DISP.SYRIN SQ SCH (09:06)
[2021-05-10] MEDS: ASCORBIC ACID 500 MG TABLET (FP) PO SCH ×2 (09:06→21:47)
[2021-05-10] MEDS: cloNIDine HCL 0.1 MG TABLET PO SCH ×2 (09:06→21:47)
[2021-05-10] MEDS: POLYETHYLENE GLYCOL (HEALTHYLAX) 3350 17 GM PACKET PO SCH (09:06)
[2021-05-10] MEDS: PANTOPRAZOLE 40 MG TABLET PO SCH (09:07)
[2021-05-10] MEDS: SPIRONOLACTONE 25 MG TABLET PO SCH (09:07)
[2021-05-10] MEDS: amLODIPine BESYLATE 5 MG TABLET (FP) PO SCH (09:07)
[2021-05-10] MEDS: VITAMIN A 10,000 UNITS (3000 MCG) CAPSULE PO SCH (09:07)
[2021-05-10] MEDS: SERTRALINE HCL 50 MG TABLET (FP) PO SCH (09:07)
[2021-05-10] MEDS: CHOLECALCIFEROL (VIT D3) 5000 UNITS (125 MCG) CAP PO SCH (09:08)
[2021-05-10] MEDS: ZINC SULFATE 220 MG CAPSULE (FP) PO SCH (09:09)
[2021-05-10] MEDS: COLLAGENASE CLOSTRIDIUM HIST. 30 GRAMS TUBE TP SCH (13:25)
[2021-05-10] MEDS: INSULIN (NOVOLOG MIX 70/30) 100 UNITS/ML MDV SQ SCH (16:17)
[2021-05-11] MEDS: oxyCODONE HCL 5 MG TABLET PO SCH ×8 (00:36→21:48)
[2021-05-11] MEDS: CLINDAMYCIN HCL 150 MG CAPSULE (FP) PO SCH ×3 (06:27→21:47)
[2021-05-11] MEDS: METOCLOPRAMIDE HCL 10 MG TABLET (FP) PO SCH ×3 (06:27→16:29)
[2021-05-11] MEDS: FUROSEMIDE 40 MG TABLET (FP) PO SCH ×2 (06:27→14:51)
[2021-05-11] MEDS: INSULIN SLIDING SCALE (NOVOLOG) 1 VIAL SQ SCH ×3 (06:32→16:37)
[2021-05-11] MEDS: INSULIN (NOVOLOG MIX 70/30) 100 UNITS/ML MDV SQ SCH ×2 (06:32→16:37)
[2021-05-11] MEDS: ALPRAZolam 1 MG TABLET PO SCH ×3 (06:33→17:44)
[2021-05-11] MEDS: ENOXAPARIN NA (PORCINE) 40 MG/0.4 ML DISP.SYRIN SQ SCH (09:49)
[2021-05-11] MEDS: POLYETHYLENE GLYCOL (HEALTHYLAX) 3350 17 GM PACKET PO SCH (09:49)
[2021-05-11] MEDS: VITAMIN A 10,000 UNITS (3000 MCG) CAPSULE PO SCH (09:49)
[2021-05-11] MEDS: cloNIDine HCL 0.1 MG TABLET PO SCH ×2 (09:49→21:48)
[2021-05-11] MEDS: PANTOPRAZOLE 40 MG TABLET PO SCH (09:50)
[2021-05-11] MEDS: SPIRONOLACTONE 25 MG TABLET PO SCH (09:50)
[2021-05-11] MEDS: ASCORBIC ACID 500 MG TABLET (FP) PO SCH ×2 (09:50→21:57)
[2021-05-11] MEDS: SERTRALINE HCL 50 MG TABLET (FP) PO SCH (09:51)
[2021-05-11] MEDS: LACTOBACILLUS ACIDOPHILUS 1 TABLET PO SCH ×2 (09:51→09:52)
[2021-05-11] MEDS: ZINC SULFATE 220 MG CAPSULE (FP) PO SCH (09:51)
[2021-05-11] MEDS: CHOLECALCIFEROL (VIT D3) 5000 UNITS (125 MCG) CAP PO SCH (09:52)
[2021-05-11] MEDS: amLODIPine BESYLATE 5 MG TABLET (FP) PO SCH (10:00)
[2021-05-11] MEDS: COLLAGENASE CLOSTRIDIUM HIST. 30 GRAMS TUBE TP SCH (12:39)
[2021-05-11] MEDS ORDERED: INSULIN (NOVOLOG) ASPART 100 UNITS/ML 10ML VIAL ONE (16:27)
[2021-05-12] MEDS: ALPRAZolam 1 MG TABLET PO SCH ×3 (00:11→12:23)
[2021-05-12] MEDS: oxyCODONE HCL 5 MG TABLET PO SCH ×5 (00:21→12:40)
[2021-05-12] MEDS: CLINDAMYCIN HCL 150 MG CAPSULE (FP) PO SCH (05:47)
[2021-05-12] MEDS: FUROSEMIDE 40 MG TABLET (FP) PO SCH (05:47)
[2021-05-12] MEDS: METOCLOPRAMIDE HCL 10 MG TABLET (FP) PO SCH ×2 (06:18→10:31)
[2021-05-12] MEDS: INSULIN SLIDING SCALE (NOVOLOG) 1 VIAL SQ SCH ×2 (06:20→11:41)
[2021-05-12] MEDS: INSULIN (NOVOLOG MIX 70/30) 100 UNITS/ML MDV SQ SCH (06:39)
[2021-05-12] MEDS: VITAMIN A 10,000 UNITS (3000 MCG) CAPSULE PO SCH (10:31)
[2021-05-12] MEDS: PANTOPRAZOLE 40 MG TABLET PO SCH (10:31)
[2021-05-12] MEDS: POLYETHYLENE GLYCOL (HEALTHYLAX) 3350 17 GM PACKET PO SCH (10:32)
[2021-05-12] MEDS: ENOXAPARIN NA (PORCINE) 40 MG/0.4 ML DISP.SYRIN SQ SCH (10:33)
[2021-05-12] MEDS: ASCORBIC ACID 500 MG TABLET (FP) PO SCH (10:34)
[2021-05-12] MEDS: cloNIDine HCL 0.1 MG TABLET PO SCH (10:34)
[2021-05-12] MEDS: amLODIPine BESYLATE 5 MG TABLET (FP) PO SCH (10:34)
[2021-05-12] MEDS: SPIRONOLACTONE 25 MG TABLET PO SCH (10:35)
[2021-05-12] MEDS: ZINC SULFATE 220 MG CAPSULE (FP) PO SCH (10:35)
[2021-05-12] MEDS: LACTOBACILLUS ACIDOPHILUS 1 TABLET PO SCH (10:35)
[2021-05-12] MEDS: COLLAGENASE CLOSTRIDIUM HIST. 30 GRAMS TUBE TP SCH (10:36)
[2021-05-12] MEDS: CHOLECALCIFEROL (VIT D3) 5000 UNITS (125 MCG) CAP PO SCH (10:36)
[2021-05-12] MEDS: SERTRALINE HCL 50 MG TABLET (FP) PO SCH (10:37)
[2021-05-12 11:00] VITALS: BP 149/73; PULSE 58; TEMP 98
== END 2021-05-12 15:24 | disposition left against medical advice (07) | DRG 383 ==
LOC: JER 09:48 → JERBED 15:00 → JICU 15:20 → JERBED 15:21 → J6S 22:01
PROVIDERS: ADMIT Internal Medicine; ATTEND Internal Medicine
PROC: XW033H6 Introduction of Other New Technology Monoclonal Antibody into Peripheral Vein, Percutaneous Approach, New Technology Group 6 (ICD-10-PCS; principal; 2021-05-01)
DX: L03.116 Cellulitis of left lower limb (principal); U07.1 COVID-19; E11.51 Type 2 diabetes mellitus with diabetic peripheral angiopathy without gangrene; S81.812A Laceration without foreign body, left lower leg, initial encounter; F11.20 Opioid dependence, uncomplicated; E11.621 Type 2 diabetes mellitus with foot ulcer; L97.528 Non-pressure chronic ulcer of other part of left foot with other specified severity; I11.0 Hypertensive heart disease with heart failure; I50.32 Chronic diastolic (congestive) heart failure; I25.10 Atherosclerotic heart disease of native coronary artery without angina pectoris; E78.5 Hyperlipidemia, unspecified; I25.2 Old myocardial infarction; K59.00 Constipation, unspecified; F41.8 Other specified anxiety disorders; M54.50 Low back pain, unspecified; R26.81 Unsteadiness on feet; R94.5 Abnormal results of liver function studies; D72.829 Elevated white blood cell count, unspecified; F43.10 Post-traumatic stress disorder, unspecified; M62.81 Muscle weakness (generalized); G89.29 Other chronic pain; E87.6 Hypokalemia; K74.60 Unspecified cirrhosis of liver; L02.416 Cutaneous abscess of left lower limb; S80.02XA Contusion of left knee, initial encounter; B95.62 Methicillin resistant Staphylococcus aureus infection as the cause of diseases classified elsewhere; X58.XXXA Exposure to other specified factors, initial encounter; Y92.9 Unspecified place or not applicable; Z89.511 Acquired absence of right leg below knee; Z86.14 Personal history of Methicillin resistant Staphylococcus aureus infection
CPT/HCPCS: 36415; 73560-TC-LT-FY; 73562-TC-LT-FY; 73630-TC-LT; 73718-TC-LT; 80048; 80053; 82550; 82962; 83036; 83735; 85025; 85379; 85610; 85651; 86140; 87040; 87070; 87186; 87205; 93005; 93010; 99285-25; C9803; G0480; J0735; J0878; M0247; Q0247; U0003; U0005

== ENCOUNTER 2023-06-22 11:53 | Inpatient (IN) | payer OTHER ==
[2023-06-22 13:50] LABS: BASO % 0.4 % (0-2.0); EOS % 0.7 % (0-4.5); HEMATOCRIT 33.5 % (35.4-49); HEMOGLOBIN 10.7 GM/dL (11.7-16.9); LYMPH % 16.7 % (8-40); MCH 26.3 pg (25.7-33.7); MCHC 31.8 g/dl (32.0-35.9); MEAN CELL VOLUME 82.7 fl (80-96); MEAN PLT VOLUME 10.3 fl (7.5-11.1); MONO % 11.7 % (3.8-10.2); NEUT % 70.5 % (42.8-82.8); PLATELET COUNT 146 10^3/uL (134-434); RBC 4.05 M/mm3 (4.00-5.60); RDW 18.6 % (11.9-15.9); WHITE BLOOD COUNT 11.7 K/mm3 (4.0-10.0)
[2023-06-22 14:08] LABS: CALCIUM 8.3 mg/dL (8.5-10.1)
[2023-06-22 14:09] LABS: ALBUMIN 3.1 g/dl (3.4-5.0); BLOOD UREA NITROGEN 26.3 mg/dL (7-18)
[2023-06-22 14:12] LABS: CREATININE 1.3 mg/dL (0.55-1.3)
[2023-06-22 14:14] LABS: BILIRUBIN,TOTAL 0.8 mg/dL (0.2-1); TOT PROT 6.9 g/dl (6.4-8.2)
[2023-06-22 14:49] LABS: ERYTHROCYTE SEDIMENTATION RATE 37 mm/hr (0-20)
[2023-06-22] MEDS ORDERED: VANCOMYCIN 1 GRAM (PRE-DOCKED) 1,000 MG/250 ML BAG IVPB ONE (14:50)
[2023-06-22] MEDS ORDERED: ACETAMINOPHEN INJECTION 100 ML IVPB ONE (14:50)
[2023-06-22] MEDS ORDERED: CEFEPIME 2 GM/100 ML BAG IVPB ONE (14:51)
[2023-06-22] MEDS: ACETAMINOPHEN 1000 MG/100 ML BAG IVPB ONE (15:07)
[2023-06-22] MEDS: CEFEPIME HCL 2 GM VIAL (RESTRICTED TO ID) IVPB ONE (15:08)
[2023-06-22] MEDS: VANCOMYCIN 1,000 MG in DEXTROSE 5%-WATER - 250 ML IVPB ONE (15:08)
[2023-06-22] MEDS ORDERED: ACETAMINOPHEN 325 MG TABLET (FP) PO PRN (15:25)
[2023-06-22] MEDS ORDERED: ALPRAZolam 1 MG TABLET PO PRN (15:26)
[2023-06-22] MEDS ORDERED: PANTOPRAZOLE 40 MG TABLET PO ONE (15:29)
[2023-06-22] MEDS ORDERED: HEPARIN NA (PORCINE) 5,000 UNITS/ML 1ML VIAL ONE (15:30)
[2023-06-22] MEDS: HEPARIN NA (PORCINE) 5,000 UNITS/ML 1ML VIAL SQ SCH (15:31)
[2023-06-22] MEDS: PANTOPRAZOLE 40 MG TABLET PO SCH (15:31)
[2023-06-22] MEDS ORDERED: SODIUM CHLORIDE NASAL SPRAY 44 ML BOTTLE NS PRN (15:38)
[2023-06-22] MEDS ORDERED: ARTIFICIAL TEARS OPHTHALMIC DROPS OU PRN ×2 (15:41→15:42)
[2023-06-22] MEDS ORDERED: MAGNESIUM HYDROX 2400MG/30ML ORAL SUSPENSION 30 ML CUP PO PRN (15:43)
[2023-06-22] MEDS ORDERED: METOCLOPRAMIDE HCL 10 MG TABLET (FP) PO ONE (17:06)
[2023-06-22] MEDS ORDERED: DOCUSATE SODIUM 100 MG CAPSULE (FP) PO ONE (17:06)
[2023-06-22] MEDS ORDERED: FUROSEMIDE 40 MG/4 ML INJECTABLE VIAL ONE (17:07)
[2023-06-22] MEDS ORDERED: oxyCODONE HCL 5 MG TABLET ONE (17:07)
[2023-06-22] MEDS: METOCLOPRAMIDE HCL 10 MG TABLET (FP) PO SCH (17:09)
[2023-06-22] MEDS: DOCUSATE SODIUM 100 MG CAPSULE (FP) PO SCH (17:09)
[2023-06-22] MEDS: oxyCODONE HCL 5 MG TABLET PO SCH (17:09)
[2023-06-22] MEDS: FUROSEMIDE 40 MG/4 ML INJECTABLE VIAL IVPUSH SCH (17:09)
[2023-06-22] MEDS: INSULIN ASPART SLIDING SCALE (NOVOLOG) 1 VIAL SQ SCH (17:14)
[2023-06-22] MEDS ORDERED: INSULIN (NOVOLOG MIX 70/30) 100 UNITS/ML MDV SQ ONE ×2 (17:15→17:24)
[2023-06-22] MEDS: INSULIN (NOVOLOG MIX 70/30) 100 UNITS/ML MDV SQ SCH (17:17)
[2023-06-22] MEDS: LACTOBACILLUS ACIDOPHILUS 1 TABLET PO SCH (17:24)
[2023-06-22] MEDS ORDERED: LIDOCAINE 4% PATCH TP ONE (19:14)
[2023-06-22] MEDS ORDERED: INSULIN (NOVOLOG) ASPART 100 UNITS/ML 10ML VIAL ONE (22:20)
[2023-06-22] MEDS: CALCIUM 500MG/VIT-D 200 UNITS COMBO TABLET (FP) PO SCH (22:30)
[2023-06-22] MEDS: ATORVASTATIN CA 20 MG TABLET (FP) PO SCH (22:30)
[2023-06-22] MEDS: POLYETHYLENE GLYCOL (HEALTHYLAX) 3350 17 GM PACKET PO SCH (22:32)
[2023-06-22] MEDS: NYSTATIN 100000 UNIT/GM TOPICAL OINTMENT 15 GM TUBE TP SCH (23:24)
[2023-06-23] MEDS: SPIRONOLACTONE 25 MG TABLET PO SCH (09:49)
[2023-06-23] MEDS: amLODIPine BESYLATE 5 MG TABLET (FP) PO SCH (09:49)
[2023-06-23] MEDS: SERTRALINE HCL 50 MG TABLET (FP) PO SCH (09:49)
[2023-06-23] MEDS: ASPIRIN COATED 81 MG TABLET.EC PO SCH (09:50)
[2023-06-23] MEDS: COLLAGENASE CLOSTRIDIUM HIST. 30 GRAMS TUBE TP SCH (09:51)
[2023-06-23 10:13] LABS: BASO % 0.2 % (0-2.0); EOS % 2.7 % (0-4.5); HEMOGLOBIN 10.3 GM/dL (11.7-16.9); LYMPH % 26.6 % (8-40); MCH 27.2 pg (25.7-33.7); MCHC 33.1 g/dl (32.0-35.9); MEAN CELL VOLUME 82.2 fl (80-96); MEAN PLT VOLUME 9.3 fl (7.5-11.1); MONO % 9.4 % (3.8-10.2); NEUT % 61.1 % (42.8-82.8); PLATELET COUNT 139 10^3/uL (134-434); RBC 3.78 M/mm3 (4.00-5.60); RDW 18.7 % (11.9-15.9)
[2023-06-23 10:17] LABS: POTASSIUM 3.8 mmol/L (3.5-5.1)
[2023-06-23 10:44] LABS: BLOOD UREA NITROGEN 28.2 mg/dL (7-18); CALCIUM 8.3 mg/dL (8.5-10.1)
[2023-06-23 10:45] LABS: MAGNESIUM 2.5 mg/dL (1.8-2.4)
[2023-06-23 10:48] LABS: CREATININE 1.3 mg/dL (0.55-1.3)
[2023-06-23] MEDS: ASCORBIC ACID 500 MG TABLET (FP) PO SCH (12:42)
[2023-06-23] MEDS: MULTIVITAMINS THER W-MINERALS COMBO TABLET (FP) PO SCH (12:42)
[2023-06-23] MEDS: CHOLECALCIFEROL (VIT D3) 1,000 UNIT (25 MCG) TABLET PO SCH (13:26)
[2023-06-23] MEDS: ZINC SULFATE 220 MG CAPSULE (FP) PO SCH (13:26)
[2023-06-23] MEDS ORDERED: CEFEPIME HCL 1 GM VIAL (RESTRICTED TO ID) IVPB SCH (14:45)
[2023-06-23] MEDS: IRON SUCROSE INJECTION 300 MG in SODIUM CHLORIDE 235 ML IVPB ONE (14:49)
[2023-06-23] MEDS: CEFEPIME 1 GM in DEXTROSE 5%-WATER 100 ML IVPB SCH (16:17)
[2023-06-23] MEDS: VANCOMYCIN PREMIX 1.5 GM 1,500 MG/300 ML BAG IVPB SCH (17:04)
[2023-06-24] MEDS: AMMONIUM LACTATE 12% LOTION 225 GM BOTTLE TP PRN (04:23)
[2023-06-24 08:00] LABS: BASO % 0.5 % (0-2.0); EOS % 2.9 % (0-4.5); HEMATOCRIT 31.3 % (35.4-49); HEMOGLOBIN 10.1 GM/dL (11.7-16.9); LYMPH % 29.1 % (8-40); MCH 26.7 pg (25.7-33.7); MCHC 32.4 g/dl (32.0-35.9); MEAN CELL VOLUME 82.5 fl (80-96); MEAN PLT VOLUME 8.4 fl (7.5-11.1); MONO % 9.8 % (3.8-10.2); NEUT % 57.7 % (42.8-82.8); PLATELET COUNT 149 10^3/uL (134-434); RDW 18.4 % (11.9-15.9); WHITE BLOOD COUNT 7.3 K/mm3 (4.0-10.0)
[2023-06-24 08:28] LABS: POTASSIUM 3.8 mmol/L (3.5-5.1)
[2023-06-24 08:33] LABS: CALCIUM 8.8 mg/dL (8.5-10.1)
[2023-06-24 08:37] LABS: CREATININE 1.1 mg/dL (0.55-1.3)
[2023-06-24] MEDS ORDERED: IRON SUCROSE INJECTION 300 MG in SODIUM CHLORIDE 235 ML IVPB ONE ×2 (09:00→10:00)
[2023-06-24] MEDS: IRON SUCROSE INJECTION 300 MG in SODIUM CHLORIDE 235 ML IVPB ONE (11:22)
[2023-06-24] MEDS: ALPRAZolam 1 MG TABLET PO ONE (14:27)
[2023-06-24] MEDS: ALPRAZolam 1 MG TABLET PO SCH (20:43)
[2023-06-24] MEDS: SENNOSIDES 8.6MG TABLET (FP) PO PRN (22:00)
[2023-06-25] MEDS: FUROSEMIDE 40 MG/4 ML INJECTABLE VIAL IVPUSH ONE (02:49)
[2023-06-25] MEDS: FUROSEMIDE 40 MG/4 ML INJECTABLE VIAL IVPUSH SCH (05:01)
[2023-06-25 09:42] LABS: BASO % 0.8 % (0-2.0); EOS % 2.8 % (0-4.5); HEMATOCRIT 32.2 % (35.4-49); HEMOGLOBIN 10.4 GM/dL (11.7-16.9); LYMPH % 21.7 % (8-40); MCH 26.8 pg (25.7-33.7); MCHC 32.3 g/dl (32.0-35.9); MEAN CELL VOLUME 83.1 fl (80-96); MEAN PLT VOLUME 8.9 fl (7.5-11.1); MONO % 9.7 % (3.8-10.2); PLATELET COUNT 164 10^3/uL (134-434); RBC 3.88 M/mm3 (4.00-5.60); RDW 18.1 % (11.9-15.9); WHITE BLOOD COUNT 7.7 K/mm3 (4.0-10.0)
[2023-06-25 10:01] LABS: POTASSIUM 4.1 mmol/L (3.5-5.1)
[2023-06-25 10:10] LABS: CALCIUM 8.1 mg/dL (8.5-10.1)
[2023-06-25 10:11] LABS: BLOOD UREA NITROGEN 15.5 mg/dL (7-18)
[2023-06-25 10:14] LABS: CREATININE 1.1 mg/dL (0.55-1.3)
[2023-06-25] MEDS: INSULIN ASPART SLIDING SCALE (NOVOLOG) 1 VIAL SQ SCH (11:19)
[2023-06-25] MEDS: AMPICILLIN NA/SULBACTAM NA 3 GM in SODIUM CHLORIDE 100 ML IVPB SCH (21:55)
[2023-06-26 09:14] LABS: BASO % 0.4 % (0-2.0); EOS % 3.6 % (0-4.5); HEMATOCRIT 34.1 % (35.4-49); HEMOGLOBIN 10.9 GM/dL (11.7-16.9); LYMPH % 25.6 % (8-40); MCH 26.4 pg (25.7-33.7); MCHC 31.8 g/dl (32.0-35.9); MEAN CELL VOLUME 83.1 fl (80-96); MEAN PLT VOLUME 8.5 fl (7.5-11.1); MONO % 7.3 % (3.8-10.2); NEUT % 63.1 % (42.8-82.8); PLATELET COUNT 185 10^3/uL (134-434); RBC 4.11 M/mm3 (4.00-5.60); RDW 17.8 % (11.9-15.9); WHITE BLOOD COUNT 8.8 K/mm3 (4.0-10.0)
[2023-06-26 09:21] LABS: POTASSIUM 3.7 mmol/L (3.5-5.1)
[2023-06-26 09:25] LABS: CALCIUM 8.4 mg/dL (8.5-10.1)
[2023-06-26 09:26] LABS: BLOOD UREA NITROGEN 13.9 mg/dL (7-18)
[2023-06-26 09:29] LABS: CREATININE 1.1 mg/dL (0.55-1.3)
[2023-06-27 07:13] LABS: BASO % 0.6 % (0-2.0); EOS % 4.1 % (0-4.5); HEMATOCRIT 36.8 % (35.4-49); HEMOGLOBIN 11.8 GM/dL (11.7-16.9); LYMPH % 27.1 % (8-40); MCHC 32.1 g/dl (32.0-35.9); MEAN CELL VOLUME 84.1 fl (80-96); MEAN PLT VOLUME 8.4 fl (7.5-11.1); MONO % 7.9 % (3.8-10.2); NEUT % 60.3 % (42.8-82.8); PLATELET COUNT 189 10^3/uL (134-434); RBC 4.38 M/mm3 (4.00-5.60); RDW 18.4 % (11.9-15.9); WHITE BLOOD COUNT 8.8 K/mm3 (4.0-10.0)
[2023-06-27 07:32] LABS: POTASSIUM 4.2 mmol/L (3.5-5.1)
[2023-06-27 07:37] LABS: BLOOD UREA NITROGEN 12.9 mg/dL (7-18); CALCIUM 8.6 mg/dL (8.5-10.1)
[2023-06-27] MEDS ORDERED: INSULIN (NOVOLOG) ASPART 100 UNITS/ML 10ML VIAL ONE ×2 (07:53→16:52)
[2023-06-28] MEDS ORDERED: INSULIN (NOVOLOG) ASPART 100 UNITS/ML 10ML VIAL ONE ×2 (07:11→17:20)
[2023-06-28 09:28] LABS: BASO % 0.4 % (0-2.0); EOS % 4.5 % (0-4.5); HEMATOCRIT 35.8 % (35.4-49); HEMOGLOBIN 11.8 GM/dL (11.7-16.9); LYMPH % 28.8 % (8-40); MCH 27.4 pg (25.7-33.7); MCHC 33.1 g/dl (32.0-35.9); MEAN CELL VOLUME 82.8 fl (80-96); MEAN PLT VOLUME 7.9 fl (7.5-11.1); MONO % 6.2 % (3.8-10.2); NEUT % 60.1 % (42.8-82.8); PLATELET COUNT 196 10^3/uL (134-434); RBC 4.32 M/mm3 (4.00-5.60); RDW 18.7 % (11.9-15.9); WHITE BLOOD COUNT 8.3 K/mm3 (4.0-10.0)
[2023-06-28 09:52] LABS: POTASSIUM 3.5 mmol/L (3.5-5.1)
[2023-06-28 10:04] LABS: BLOOD UREA NITROGEN 15.4 mg/dL (7-18)
[2023-06-28 10:06] LABS: CREATININE 1.1 mg/dL (0.55-1.3)
[2023-06-28 10:07] LABS: CALCIUM 8.6 mg/dL (8.5-10.1); MAGNESIUM 2.2 mg/dL (1.8-2.4)
[2023-06-28 22:49] VITALS: RESP 18
[2023-06-29] MEDS ORDERED: INSULIN (NOVOLOG) ASPART 100 UNITS/ML 10ML VIAL ONE (06:52)
[2023-06-29 06:53] LABS: BASO % 0.5 % (0-2.0); EOS % 4.4 % (0-4.5); HEMATOCRIT 36.9 % (35.4-49); HEMOGLOBIN 11.8 GM/dL (11.7-16.9); LYMPH % 25.9 % (8-40); MCH 26.8 pg (25.7-33.7); MCHC 32.1 g/dl (32.0-35.9); MEAN CELL VOLUME 83.6 fl (80-96); MONO % 7.5 % (3.8-10.2); NEUT % 61.7 % (42.8-82.8); PLATELET COUNT 179 10^3/uL (134-434); RBC 4.41 M/mm3 (4.00-5.60); RDW 18.4 % (11.9-15.9)
[2023-06-29 07:01] LABS: POTASSIUM 4.1 mmol/L (3.5-5.1)
[2023-06-29 07:05] LABS: BLOOD UREA NITROGEN 16.7 mg/dL (7-18); CALCIUM 8.4 mg/dL (8.5-10.1)
[2023-06-29 14:41] VITALS: TEMP 98.4
[2023-06-29] MEDS: SPIRONOLACTONE 25 MG TABLET PO ONE (15:06)
[2023-06-29] MEDS: amLODIPine BESYLATE 5 MG TABLET (FP) PO ONE (15:06)
[2023-06-29 16:01] VITALS: BMI 40.4
[2023-06-29] MEDS: AMINO ACIDS/PROTEIN HYDROLYS 30 ML LIQUID.PKT PO SCH (16:41)
[2023-06-30 06:45] LABS: BASO % 0.8 % (0-2.0); EOS % 4.5 % (0-4.5); HEMATOCRIT 37.5 % (35.4-49); HEMOGLOBIN 12.2 GM/dL (11.7-16.9); MCH 27.2 pg (25.7-33.7); MCHC 32.6 g/dl (32.0-35.9); MEAN CELL VOLUME 83.3 fl (80-96); MEAN PLT VOLUME 8.4 fl (7.5-11.1); MONO % 7.1 % (3.8-10.2); NEUT % 59.6 % (42.8-82.8); PLATELET COUNT 184 10^3/uL (134-434); RDW 18.4 % (11.9-15.9); WHITE BLOOD COUNT 7.7 K/mm3 (4.0-10.0)
[2023-06-30 07:12] LABS: POTASSIUM 4.3 mmol/L (3.5-5.1)
[2023-06-30 07:20] LABS: CALCIUM 9.2 mg/dL (8.5-10.1)
[2023-06-30 07:21] LABS: BLOOD UREA NITROGEN 17.6 mg/dL (7-18)
[2023-06-30 07:30] VITALS: BP 146/78; PULSE 60
[2023-06-30] MEDS ORDERED: AMOX TR/POT CLAV 875MG/125MG TABLETS (FP) PO SCH ×2 (12:08→17:30)
[2023-07-01] MEDS ORDERED: AMOX TR/POT CLAV 875MG/125MG TABLETS (FP) PO SCH (08:00)
== END 2023-06-30 13:20 | disposition home or self-care (01) | DRG 383 ==
LOC: JER 11:53 → JERBED 15:01 → J8W 19:53 → J6S 06-23 11:56 → J7W 06-24 16:59
PROVIDERS: ADMIT Internal Medicine; ATTEND Internal Medicine
DX: L03.116 Cellulitis of left lower limb (principal); I11.0 Hypertensive heart disease with heart failure; E11.42 Type 2 diabetes mellitus with diabetic polyneuropathy; I50.32 Chronic diastolic (congestive) heart failure; E11.51 Type 2 diabetes mellitus with diabetic peripheral angiopathy without gangrene; E11.622 Type 2 diabetes mellitus with other skin ulcer; L97.909 Non-pressure chronic ulcer of unspecified part of unspecified lower leg with unspecified severity; S81.802A Unspecified open wound, left lower leg, initial encounter; Z68.41 Body mass index [BMI] 40.0-44.9, adult; E78.5 Hyperlipidemia, unspecified; I25.10 Atherosclerotic heart disease of native coronary artery without angina pectoris; Z89.511 Acquired absence of right leg below knee; X58.XXXA Exposure to other specified factors, initial encounter; Y93.9 Activity, unspecified; Y92.89 Other specified places as the place of occurrence of the external cause; Y99.9 Unspecified external cause status
CPT/HCPCS: 36415; 73560-TC-LT-FY; 73590-TC-LT-FY; 73610-TC-LT-FY; 73630-TC-LT; 80048; 80053; 82728; 82962; 83540; 83550; 83735; 85025; 85651; 86140; 87040; 87070; 87077; 87081; 87186; 87205; 93005; 93010; 97116-GP; 97161-GP; 99285-25; G0480; J0131; J1644; J1756